=== PATIENT | female | born 1940 | race Caucasian/White ===

== ENCOUNTER 2017-06-08 07:43 | Day surgery (SDC) | payer MEDICARE ==
[2017-06-07 13:20] VITALS: BMI 29.1
[~2017-06-08 07:43] MED LIST: FLU VACC TS2017-18 (>65YR) 0.5 ML SYRINGE IM ONE
[2017-06-08 07:59] LABS: #Eosinphils 0.1 thou/uL (0.0-0.7); #Monocytes 0.4 thou/uL (0.11-0.59); #Neutrophils 4.1 thou/uL (1.40-6.50); %Basophils 0.7 % (0.0-1.0); %Eosinophils 1.9 % (0.0-10.0); %Lymphocytes 17.7 % (21.0-51.0); %Monocytes 7.7 % (0.0-10.0); Mean Platelet Volume 9.5 fL (7.4-10.4); Red Blood Cell (RBC) Count 4.69 mill/uL (4.20-5.40); White Blood Cell (WBC) Count 5.7 thou/uL (4.8-10.8)
[2017-06-08 08:08] LABS: PTT 38.5 SEC (22.9-36.1); Prothrombin Time 14.8 SEC (12.0-14.7)
[2017-06-08 08:31] LABS: ALT (SGPT) 13 U/L (8-55); AST (SGOT) 25 U/L (5-34); Alkaline Phosphatase 92 U/L (40-150); Anion Gap 12 mmol/L (10-20); BUN (Urea Nitrogen) 25 mg/dL (9.8-20.1); Bilirubin, Total 0.7 mg/dL (0.2-1.2); Calc. Creatinine Clearance 40 mL/min (70-130); Calcium 9.6 mg/dL (7.8-10.44); Carbon Dioxide 26 mmol/L (23-31); Chloride 100 mmol/L (98-107); Estimated GFR-MDRD 35; Globulin 3.9 g/dL (2.4-3.5); Protein, Total 6.9 g/dL (6.0-8.3)
[2017-06-08] MEDS ORDERED: Albumin 25% 100 ML ONE (10:37)
--- NOTE | 2017-06-08 10:41 | ULT ---
SONOGRAPHIC GUIDED PARACENTESIS: History: Cirrhosis. Recurrent ascites. FINDINGS: After explaining the procedure and answering all questions, the right lower quadrant was prepped and draped in the usual sterile fashion. Sterile technique, buffered local anesthesia, sonographic guid ance, and a 19 gauge Yueh needle were used to carefully access the free fluid. The new catheter was left to drain a total volume of 7.0 L clear yellow liquid. Catheter was removed. Post procedure imag ing shows a small amount of residual fluid. Patient tolerated the procedure well and was dismissed i n good condition. IMPRESSION: Technically successful sonographic guided paracentesis. POS: [facility]
[2017-06-08 12:58] VITALS: BP 110/65; TEMP 97.5
== END 2017-06-08 09:30 | disposition home or self-care (01) ==
LOC: ULT 07:43
PROVIDERS: ATTEND Internal Medicine Gastroenterology
PROC: 0W9G3ZZ Drainage of Peritoneal Cavity, Percutaneous Approach (ICD-10-PCS; principal; 2017-06-08)
PROC: BW40ZZZ Ultrasonography of Abdomen (ICD-10-PCS; 2017-06-08)
DX: K74.60 Unspecified cirrhosis of liver (principal); D50.0 Iron deficiency anemia secondary to blood loss (chronic); I10 Essential (primary) hypertension; E11.9 Type 2 diabetes mellitus without complications; E78.5 Hyperlipidemia, unspecified; M19.90 Unspecified osteoarthritis, unspecified site; Z79.84 Long term (current) use of oral hypoglycemic drugs; Z79.82 Long term (current) use of aspirin; Z90.710 Acquired absence of both cervix and uterus; Z90.49 Acquired absence of other specified parts of digestive tract; Z86.010 Personal history of colon polyps; Z88.6 Allergy status to analgesic agent; Z88.8 Allergy status to other drugs, medicaments and biological substances
CPT/HCPCS: 49083; 80053; 85025; 85610; 85730; P9047; 36415

== ENCOUNTER 2017-06-22 08:00 | Day surgery (SDC) | payer MEDICARE ==
[2017-06-21 09:18] VITALS: BMI 29.1
[2017-06-22 08:22] LABS: Hematocrit 43.3 % (36.0-47.0); Mean Platelet Volume 10.3 fL (7.4-10.4); Red Blood Cell (RBC) Count 4.89 mill/uL (4.20-5.40); White Blood Cell (WBC) Count 5.8 thou/uL (4.8-10.8)
[2017-06-22 08:42] LABS: Prothrombin Time 15.1 SEC (12.0-14.7)
[2017-06-22 08:51] LABS: ALT (SGPT) 14 U/L (8-55); AST (SGOT) 24 U/L (5-34); Alkaline Phosphatase 85 U/L (40-150); Anion Gap 12 mmol/L (10-20); BUN (Urea Nitrogen) 29 mg/dL (9.8-20.1); Bilirubin, Total 0.8 mg/dL (0.2-1.2); Calc. Creatinine Clearance 44 mL/min (70-130); Calcium 9.6 mg/dL (7.8-10.44); Carbon Dioxide 24 mmol/L (23-31); Chloride 103 mmol/L (98-107); Estimated GFR-MDRD 38; Protein, Total 7.2 g/dL (6.0-8.3)
[2017-06-22] MEDS ORDERED: Albumin 25% 100 ML ONE (10:23)
[2017-06-22 12:13] VITALS: BP 123/72; TEMP 97.5
--- NOTE | 2017-06-22 13:25 | ULT ---
ULTRASOUND GUIDED PARACENTESIS: 06/22/2017 HISTORY: Ascites and cirrhosis. TECHNIQUE: After informed consent was obtained, the patient was placed on the sonography table in the supine po sition. An appropriate access site was determined with ultrasound guidance. An area was marked and meticulously prepped and draped in the usual sterile fashion. The skin and subcutaneous tissues were infiltrated with buffered 1% Lidocaine for local anesthesia. A small skin incision was made. Utilizing concurrent real-time ultrasound guidance, a 19 gauge Yueh needle with a 5 Icelandic sheath was advanced into the abdomen. The needle was removed, and the sheat h was advanced. Approximately 7 L of clear, straw-colored fluid was aspirated. The patient was adm inistered albumin intravenously during the exam, as requested. After the sheath was removed, hemostasis was achieved with direct pressure. Post paracentesis sonog julia demonstrates a minimal amount of intraperitoneal free fluid present. IMPRESSION: Technically successful ultrasound-guided paracentesis with aspiration of 7 L of clear, straw colored fluid. POS: [facility]
== END 2017-06-22 11:45 | disposition home or self-care (01) ==
LOC: ULT 08:00
PROVIDERS: ATTEND Internal Medicine Gastroenterology
DX: R18.8 Other ascites (principal); K74.60 Unspecified cirrhosis of liver; Z88.1 Allergy status to other antibiotic agents; Z88.8 Allergy status to other drugs, medicaments and biological substances; Z79.899 Other long term (current) drug therapy
CPT/HCPCS: 49083; 80053; 85027; 85610; P9047; 36415

== ENCOUNTER 2017-07-06 07:48 | Day surgery (SDC) | payer MEDICARE ==
[2017-07-05 09:15] VITALS: BMI 28.2
[2017-07-06] MEDS ORDERED: Sodium Bicarbonate 2.4 MEQ/5 ML ONE (08:01)
[2017-07-06] MEDS ORDERED: Albumin 25% 100 ML ONE (08:01)
[2017-07-06 08:38] VITALS: BP 122/68; TEMP 97.8
[2017-07-06 09:48] LABS: #Eosinphils 0.1 thou/uL (0.0-0.7); #Lymphocytes 0.8 thou/uL (1.20-3.40); #Monocytes 0.5 thou/uL (0.11-0.59); #Neutrophils 3.3 thou/uL (1.40-6.50); %Basophils 0.4 % (0.0-1.0); %Eosinophils 1.3 % (0.0-10.0); %Lymphocytes 17.4 % (21.0-51.0); %Monocytes 9.9 % (0.0-10.0); Hematocrit 37.7 % (36.0-47.0); Mean Platelet Volume 11.6 fL (7.4-10.4); Prothrombin Time 14.8 SEC (12.0-14.7); Red Blood Cell (RBC) Count 4.21 mill/uL (4.20-5.40); White Blood Cell (WBC) Count 4.7 thou/uL (4.8-10.8)
[2017-07-06 09:55] LABS: ALT (SGPT) 15 U/L (8-55); AST (SGOT) 25 U/L (5-34); Alkaline Phosphatase 78 U/L (40-150); Anion Gap 13 mmol/L (10-20); BUN (Urea Nitrogen) 27 mg/dL (9.8-20.1); Bilirubin, Total 0.9 mg/dL (0.2-1.2); Calc. Creatinine Clearance 44 mL/min (70-130); Calcium 9.6 mg/dL (7.8-10.44); Carbon Dioxide 26 mmol/L (23-31); Chloride 102 mmol/L (98-107); Estimated GFR-MDRD 38; Globulin 3.2 g/dL (2.4-3.5); Protein, Total 6.7 g/dL (6.0-8.3)
--- NOTE | 2017-07-06 11:34 | ULT ---
ULTRASOUND PARACENTESIS WITH ULTRASOUND GUIDANCE: Date: 07/06/17 HISTORY: Ascites. COMPARISON: Paracentesis of 06/22/17. TECHNIQUE: Patient was brought to the ultrasound suite. All questions were answered. The patient's right lower quadrant was prepped and draped in the normal sterile fashion. Timeout was performed. Informed consent was already obtained. 3 mL of lidocaine was instilled into the soft tissues for local anesthesia. A small dermatotomy was made. Using a 5 Israeli Yueh needle, the peritoneal cavity was accessed. 6600 mL of straw-colored flu id was aspirated. The patient tolerated the procedure well. IMPRESSION: Technically successful right lower quadrant paracentesis. POS: [facility]
== END 2017-07-06 09:35 | disposition home or self-care (01) ==
LOC: ULT 07:48
PROVIDERS: ATTEND Internal Medicine Gastroenterology
PROC: 0W9G3ZX Drainage of Peritoneal Cavity, Percutaneous Approach, Diagnostic (ICD-10-PCS; principal; 2017-07-06)
DX: K74.60 Unspecified cirrhosis of liver (principal); R18.8 Other ascites; Z88.1 Allergy status to other antibiotic agents; Z88.8 Allergy status to other drugs, medicaments and biological substances
CPT/HCPCS: 49083; 80053; 85025; 85610; P9047; 36415

== ENCOUNTER → 2017-07-20 | Day surgery (SDC) | payer MEDICARE ==
[~2017-07-20] MED LIST changes: +Albumin 25% 100 ML ONE; -FLU VACC TS2017-18 (>65YR) 0.5 ML SYRINGE IM ONE
[2017-07-20 08:04] LABS: #Eosinphils 0.1 thou/uL (0.0-0.7); #Lymphocytes 0.9 thou/uL (1.20-3.40); #Monocytes 0.4 thou/uL (0.11-0.59); #Neutrophils 4.2 thou/uL (1.40-6.50); %Basophils 0.3 % (0.0-1.0); %Eosinophils 1.2 % (0.0-10.0); %Lymphocytes 15.5 % (21.0-51.0); %Monocytes 7.1 % (0.0-10.0); Hematocrit 39.3 % (36.0-47.0); Mean Platelet Volume 10.3 fL (7.4-10.4); Red Blood Cell (RBC) Count 4.33 mill/uL (4.20-5.40); White Blood Cell (WBC) Count 5.5 thou/uL (4.8-10.8)
[2017-07-20 08:27] LABS: ALT (SGPT) 15 U/L (8-55); AST (SGOT) 25 U/L (5-34); Alkaline Phosphatase 92 U/L (40-150); Anion Gap 14 mmol/L (10-20); BUN (Urea Nitrogen) 27 mg/dL (9.8-20.1); Bilirubin, Total 0.9 mg/dL (0.2-1.2); Calc. Creatinine Clearance 0 mL/min (70-130); Calcium 9.3 mg/dL (7.8-10.44); Carbon Dioxide 24 mmol/L (23-31); Chloride 102 mmol/L (98-107); Estimated GFR-MDRD 36; Globulin 3.9 g/dL (2.4-3.5)
[2017-07-20 10:54] VITALS: BP 111/64; TEMP 97.8
[2017-07-20 10:55] VITALS: BMI 27.3
--- NOTE | 2017-07-20 12:00 | ULT ---
ULTRASOUND GUIDED PARACENTESIS: HISTORY: Ascites. COMPARISON: 07/06/2017 FINDINGS: Technically successful ultrasound-guided paracentesis. A total of 7 L of yellow-colored ascites was aspirated. There were no immediate or post procedure complications. TECHNIQUE: Consent obtained for an ultrasound guided paracentesis. The right lower quadrant was deemed appropr iate. The skin was prepped and draped in a sterile fashion. Lidocaine 1%, buffered with sodium bic arbonate, was used for local anesthesia. Under ultrasound guidance, a 5 Bulgarian, 7 cm Techuloneh catheter was advanced into the peritoneal space. Via a tubing catheter and vacuum bottles, a total of 7 L of yellow-colored ascites was aspirated. The patient tolerated the procedure well. No immediate or p ost procedure complications. IMPRESSION: Technically successful ultrasound-guided paracentesis. POS: [facility]
== END ==
LOC: ULT 07:40
PROVIDERS: ATTEND Internal Medicine Gastroenterology
PROC: 0W9G3ZX Drainage of Peritoneal Cavity, Percutaneous Approach, Diagnostic (ICD-10-PCS; principal; 2017-07-20)
DX: K74.60 Unspecified cirrhosis of liver (principal); R18.8 Other ascites; E11.9 Type 2 diabetes mellitus without complications; M19.90 Unspecified osteoarthritis, unspecified site; I10 Essential (primary) hypertension; E78.00 Pure hypercholesterolemia, unspecified; Z88.1 Allergy status to other antibiotic agents; Z88.8 Allergy status to other drugs, medicaments and biological substances; Z79.84 Long term (current) use of oral hypoglycemic drugs; Z79.899 Other long term (current) drug therapy; Z90.49 Acquired absence of other specified parts of digestive tract; Z90.710 Acquired absence of both cervix and uterus; Z98.890 Other specified postprocedural states
CPT/HCPCS: 49083; 80053; 85025; 85610; P9047; 36415

== ENCOUNTER 2017-08-03 07:38 | Day surgery (SDC) | payer MEDICARE ==
[2017-08-03 08:04] LABS: PTT 35.5 SEC (22.9-36.1)
[2017-08-03 08:15] LABS: ALT (SGPT) 14 U/L (8-55); AST (SGOT) 29 U/L (5-34); Alkaline Phosphatase 93 U/L (40-150); Anion Gap 15 mmol/L (10-20); BUN (Urea Nitrogen) 30 mg/dL (9.8-20.1); Bilirubin, Total 0.9 mg/dL (0.2-1.2); Calc. Creatinine Clearance 0 mL/min (70-130); Calcium 8.9 mg/dL (7.8-10.44); Carbon Dioxide 17 mmol/L (23-31); Chloride 106 mmol/L (98-107); Estimated GFR-MDRD 40; Globulin 3.4 g/dL (2.4-3.5); Protein, Total 6.5 g/dL (6.0-8.3)
[2017-08-03 08:43] LABS: #Eosinphils 0.1 thou/uL (0.0-0.7); #Monocytes 0.4 thou/uL (0.11-0.59); #Neutrophils 4.3 thou/uL (1.40-6.50); %Basophils 0.7 % (0.0-1.0); %Eosinophils 1.2 % (0.0-10.0); %Lymphocytes 16.3 % (21.0-51.0); %Monocytes 7.6 % (0.0-10.0); Anisocytosis SLIGHT = 6-15 cells (100X) (0-5/hpf); Hematocrit 38.8 % (36.0-47.0); Mean Platelet Volume 11.2 fL (7.4-10.4); Ovalocytes SLIGHT = 2-5 cells (100X) (0-1/hpf); Polychromasia SLIGHT = 2-3 cells (100X) (0-2/hpf); Red Blood Cell (RBC) Count 4.24 mill/uL (4.20-5.40); White Blood Cell (WBC) Count 5.8 thou/uL (4.8-10.8)
[2017-08-03 10:17] VITALS: TEMP 98.2
--- NOTE | 2017-08-03 10:54 | ULT ---
ULTRASOUND GUIDED PARACENTESIS: Date: 08/03/17 HISTORY: Ascites. COMPARISON: 07/20/17. FINDINGS: Technically successful ultrasound guided paracentesis. A total of 8 liters of yellow-colored ascites was aspirated. No immediate postprocedure complication. TECHNIQUE: Consent obtained to perform an ultrasound guided paracentesis. Patient's abdomen was evaluated. Right lower quadrant was deemed appropriate. Skin was prepped and draped in the sterile fashion. 1% lidoca ine, buffered with sodium bicarbonate, was used for local anesthesia. Under ultrasound guidance, a 5 Bengali 7.0 cm Railswareeh catheter was advanced into the peritoneal space. Via vacuum bottles, a total of 8 liters of yellow-colored ascites was aspirated. The patient tolerated the procedure well. No immediat e or postprocedure complications. IMPRESSION: Technically successful ultrasound guided paracentesis. POS: [facility]
== END 2017-08-03 09:50 | disposition home or self-care (01) ==
LOC: ULT 07:38
PROVIDERS: ATTEND Internal Medicine Gastroenterology
PROC: 0W9G3ZX Drainage of Peritoneal Cavity, Percutaneous Approach, Diagnostic (ICD-10-PCS; principal; 2017-08-03)
DX: K74.60 Unspecified cirrhosis of liver (principal); R18.8 Other ascites; E11.9 Type 2 diabetes mellitus without complications; M19.90 Unspecified osteoarthritis, unspecified site; I10 Essential (primary) hypertension; E78.00 Pure hypercholesterolemia, unspecified; I95.9 Hypotension, unspecified; Z88.1 Allergy status to other antibiotic agents; Z88.8 Allergy status to other drugs, medicaments and biological substances; Z79.84 Long term (current) use of oral hypoglycemic drugs; Z79.899 Other long term (current) drug therapy; Z90.710 Acquired absence of both cervix and uterus; Z90.49 Acquired absence of other specified parts of digestive tract; Z98.890 Other specified postprocedural states; Z86.010 Personal history of colon polyps; Z80.0 Family history of malignant neoplasm of digestive organs
CPT/HCPCS: 36415; 49083; 80053; 85025; 85610; 85730

== ENCOUNTER 2017-08-17 07:44 | Day surgery (SDC) | payer MEDICARE ==
[2017-08-17 07:58] LABS: #Basophils 0.1 thou/uL (0.0-0.2); #Eosinphils 0.1 thou/uL (0.0-0.7); #Lymphocytes 1.1 thou/uL (1.20-3.40); #Monocytes 0.4 thou/uL (0.11-0.59); #Neutrophils 4.6 thou/uL (1.40-6.50); %Basophils 0.9 % (0.0-1.0); %Eosinophils 1.5 % (0.0-10.0); Hematocrit 41.1 % (36.0-47.0); Mean Platelet Volume 9.3 fL (7.4-10.4); Red Blood Cell (RBC) Count 4.44 mill/uL (4.20-5.40); White Blood Cell (WBC) Count 6.3 thou/uL (4.8-10.8)
[2017-08-17 08:04] LABS: Prothrombin Time 14.7 SEC (12.0-14.7)
[2017-08-17 08:28] LABS: ALT (SGPT) 18 U/L (8-55); AST (SGOT) 29 U/L (5-34); Alkaline Phosphatase 91 U/L (40-150); Anion Gap 13 mmol/L (10-20); BUN (Urea Nitrogen) 35 mg/dL (9.8-20.1); Bilirubin, Total 1.4 mg/dL (0.2-1.2); Calc. Creatinine Clearance 0 mL/min (70-130); Calcium 9.5 mg/dL (7.8-10.44); Carbon Dioxide 25 mmol/L (23-31); Chloride 102 mmol/L (98-107); Estimated GFR-MDRD 29; Globulin 3.8 g/dL (2.4-3.5); Protein, Total 7.2 g/dL (6.0-8.3)
[2017-08-17] MEDS ORDERED: Lidocaine 1% PF 5 ML VIAL ONE (08:39)
[2017-08-17] MEDS ORDERED: Sodium Bicarbonate 2.4 MEQ/5 ML ONE (08:39)
[2017-08-17] MEDS ORDERED: Albumin 25% 200 ML ONE (08:39)
[2017-08-17 10:22] VITALS: TEMP 98.5; BMI 27.9
--- NOTE | 2017-08-17 10:54 | ULT ---
ULTRASOUND GUIDED ABDOMINAL PARACENTESIS: Indications: Recurrent ascites. FINDINGS: 8 L of yellowish clear ascitic fluid removed from the right lower quadrant. PROCEDURE NOTE: Four quadrant ultrasound showed a large amount of ascites in all quadrants. Right lower quadrant was chosen for puncture. Overlying skin was prepped and draped in a sterile manner. Local anesthesia was administered with Lidocaine and Bicarb. Tiny skin incision made. 5 Haitian Yueh needle with catheter i ntroduced into the fluid in the right lower quadrant under ultrasound guidance. The catheter was adva nced and the needle was removed. The catheter was attached to suction drainage. 8 L of fluid removed. Post procedure ultrasound shows minimal residual ascites. Patient tolerated the procedure well and t here were no problems or complications. POS: [facility]
== END 2017-08-17 09:50 | disposition home or self-care (01) ==
LOC: ULT 07:44
PROVIDERS: ATTEND Internal Medicine Gastroenterology
PROC: 0W9G3ZZ Drainage of Peritoneal Cavity, Percutaneous Approach (ICD-10-PCS; principal; 2017-08-17)
PROC: BW40ZZZ Ultrasonography of Abdomen (ICD-10-PCS; 2017-08-17)
DX: K74.60 Unspecified cirrhosis of liver (principal); R18.8 Other ascites; E11.9 Type 2 diabetes mellitus without complications; E78.00 Pure hypercholesterolemia, unspecified; I10 Essential (primary) hypertension; M19.90 Unspecified osteoarthritis, unspecified site; K21.9 Gastro-esophageal reflux disease without esophagitis; Z86.010 Personal history of colon polyps; Z88.6 Allergy status to analgesic agent; Z88.8 Allergy status to other drugs, medicaments and biological substances; Z79.4 Long term (current) use of insulin; Z79.82 Long term (current) use of aspirin; Z79.899 Other long term (current) drug therapy; Z90.710 Acquired absence of both cervix and uterus; Z90.49 Acquired absence of other specified parts of digestive tract
CPT/HCPCS: 49083 ×2; 80053; 85025; 85610; P9047; 36415; J2001

== ENCOUNTER 2017-08-27 07:33 | Day surgery (SDC) | payer MEDICARE ==
[~2017-08-27 07:33] MED LIST changes: -Albumin 25% 100 ML ONE; +FLU VACC TS2017-18 (>65YR) 0.5 ML SYRINGE IM ONE
[2017-08-27 08:01] LABS: #Eosinphils 0.1 thou/uL (0.0-0.7); #Lymphocytes 1.1 thou/uL (1.20-3.40); #Monocytes 0.4 thou/uL (0.11-0.59); #Neutrophils 4.2 thou/uL (1.40-6.50); %Basophils 0.7 % (0.0-1.0); %Eosinophils 1.2 % (0.0-10.0); %Lymphocytes 19.3 % (21.0-51.0); Hematocrit 42.1 % (36.0-47.0); Mean Platelet Volume 9.6 fL (7.4-10.4); Red Blood Cell (RBC) Count 4.51 mill/uL (4.20-5.40); White Blood Cell (WBC) Count 5.9 thou/uL (4.8-10.8)
[2017-08-27 08:05] LABS: Prothrombin Time 14.2 SEC (12.0-14.7)
[2017-08-27 08:14] LABS: ALT (SGPT) 20 U/L (8-55); AST (SGOT) 32 U/L (5-34); Alkaline Phosphatase 84 U/L (40-150); Anion Gap 14 mmol/L (10-20); BUN (Urea Nitrogen) 51 mg/dL (9.8-20.1); Calc. Creatinine Clearance 28 mL/min (70-130); Calcium 10.4 mg/dL (7.8-10.44); Carbon Dioxide 26 mmol/L (23-31); Chloride 101 mmol/L (98-107); Estimated GFR-MDRD 23; Globulin 3.7 g/dL (2.4-3.5); Protein, Total 7.4 g/dL (6.0-8.3)
[2017-08-27] MEDS ORDERED: Sodium Bicarbonate 2.4 MEQ/5 ML ONE (08:37)
[2017-08-27] MEDS ORDERED: Lidocaine 1% PF 5 ML VIAL ONE (08:38)
[2017-08-27 10:06] VITALS: BP 110/65; TEMP 97.7; BMI 25.0
--- NOTE | 2017-08-27 10:45 | ULT ---
ULTRASOUND-GUIDED PARACENTESIS: HISTORY: Recurrent ascites. TECHNIQUE: After informed consent was obtained, the patient was prepped and draped in the normal sterile fashion . Local anesthesia was obtained with 1% Xylocaine mixed with sodium bicarbonate. A small skin incis ion was made with a #11 scalpel blade. A 6 Irish Yueh catheter was inserted into the largest fluid collection, which was in the right lower quadrant, and 3.2 L of typical straw-colored fluid was obtai alistair. The patient tolerated the procedure well with no immediate complications. IMPRESSION: Successful ultrasound-guided paracentesis of 3.2 L of fluid. POS: [facility]
== END 2017-08-27 09:45 | disposition home or self-care (01) ==
LOC: ULT 07:33
PROVIDERS: ATTEND Internal Medicine Gastroenterology
PROC: 0W9G30Z Drainage of Peritoneal Cavity with Drainage Device, Percutaneous Approach (ICD-10-PCS; principal; 2017-08-27)
DX: K74.60 Unspecified cirrhosis of liver (principal); R18.8 Other ascites; D50.0 Iron deficiency anemia secondary to blood loss (chronic); K31.819 Angiodysplasia of stomach and duodenum without bleeding; K21.9 Gastro-esophageal reflux disease without esophagitis; E11.9 Type 2 diabetes mellitus without complications; M19.90 Unspecified osteoarthritis, unspecified site; I10 Essential (primary) hypertension; Z79.2 Long term (current) use of antibiotics; Z79.84 Long term (current) use of oral hypoglycemic drugs; Z79.82 Long term (current) use of aspirin; Z79.899 Other long term (current) drug therapy; Z88.8 Allergy status to other drugs, medicaments and biological substances; Z98.1 Arthrodesis status; Z90.49 Acquired absence of other specified parts of digestive tract; Z90.710 Acquired absence of both cervix and uterus; Z98.890 Other specified postprocedural states; Z86.010 Personal history of colon polyps
CPT/HCPCS: 36415; 49083; 80053; 85025; 85610; J2001

== ENCOUNTER 2017-09-14 07:28 | Day surgery (SDC) | payer MEDICARE ==
[2017-09-14 07:55] LABS: #Eosinphils 0.1 thou/uL (0.0-0.7); #Lymphocytes 0.9 thou/uL (1.20-3.40); #Monocytes 0.4 thou/uL (0.11-0.59); #Neutrophils 4.1 thou/uL (1.40-6.50); %Basophils 0.7 % (0.0-1.0); %Eosinophils 1.6 % (0.0-10.0); %Lymphocytes 15.9 % (21.0-51.0); %Neutrophils 73.8 % (42.0-75.0); Hemoglobin 12.3 g/dL (12.0-16.0); Mean Corpuscular HGB CONC 31.6 g/dL (32.0-36.0); Mean Corpuscular Hemoglobin 30.2 pg (27.0-31.0); Mean Corpuscular Volume 95.6 fl (81.0-99.0); Mean Platelet Volume 8.8 fL (7.4-10.4); Platelet Count 187 thou/uL (130-400); RBC Distribution Width 14.2 % (11.5-14.5); Red Blood Cell (RBC) Count 4.07 mill/uL (4.20-5.40); White Blood Cell (WBC) Count 5.5 thou/uL (4.8-10.8)
[2017-09-14 07:59] LABS: INR-International Normal Ratio 1.1; PTT 37.7 SEC (22.9-36.1); Prothrombin Time 14.6 SEC (12.0-14.7)
[2017-09-14 08:09] LABS: ALT (SGPT) 25 U/L (8-55); AST (SGOT) 32 U/L (5-34); Albumin 3.2 g/dL (3.4-4.8); Alkaline Phosphatase 97 U/L (40-150); Anion Gap 15 mmol/L (10-20); BUN (Urea Nitrogen) 34 mg/dL (9.8-20.1); Bilirubin, Total 1.3 mg/dL (0.2-1.2); Calc. Creatinine Clearance 0 mL/min (70-130); Calcium 9.9 mg/dL (7.8-10.44); Carbon Dioxide 22 mmol/L (23-31); Chloride 103 mmol/L (98-107); Estimated GFR-MDRD 31; Globulin 3.4 g/dL (2.4-3.5); Glucose 172 mg/dL (83-110); Protein, Total 6.6 g/dL (6.0-8.3); Sodium 136 mmol/L (136-145)
[2017-09-14] MEDS ORDERED: Albumin 25% 200 ML ONE (09:31)
[2017-09-14 11:45] VITALS: BP 100/63; TEMP 97.7
--- NOTE | 2017-09-14 12:57 | ULT ---
ULTRASOUND GUIDED PARACENTESIS: HISTORY: Current ascites. TECHNIQUE: After informed consent was obtained, the patient was placed on the sonography table in the supine pos ition. limited sonographic evaluation of the abdomen was performed. An area in the mid axillary darren e, right upper quadrant, was marked and then meticulously prepped and draped in the usual sterile fas hion. The skin and subcutaneous tissues were infiltrated with buffered 1% Lidocaine for local anesth esia. A small skin incision was made. Utilizing concurrent real-time ultrasound guidance, a 19 gauge Zattikkaeh needle with a 5 Turkish sheath was advanced into the abdomen. After the return of fluid, the sheath w as advanced, and the needle was removed. Approximately 6 L of clear, straw-colored fluid was aspirat ed. The sheath was removed. Post procedure ultrasound demonstrated residual intraperitoneal free fl uid. A dry, sterile dressing was placed at the catheter entry site. The patient tolerated the procedure w ell and without immediate complication. IMPRESSION: Technically successful ultrasound-guided paracentesis. POS: [facility]
== END 2017-09-14 11:10 | disposition home or self-care (01) ==
LOC: ULT 07:28
PROVIDERS: ATTEND Internal Medicine Gastroenterology
PROC: 0W9G3ZX Drainage of Peritoneal Cavity, Percutaneous Approach, Diagnostic (ICD-10-PCS; principal; 2017-09-14)
DX: K74.60 Unspecified cirrhosis of liver (principal); R18.8 Other ascites; E11.9 Type 2 diabetes mellitus without complications; M19.90 Unspecified osteoarthritis, unspecified site; I10 Essential (primary) hypertension; E78.00 Pure hypercholesterolemia, unspecified; Z88.1 Allergy status to other antibiotic agents; Z88.8 Allergy status to other drugs, medicaments and biological substances; Z79.84 Long term (current) use of oral hypoglycemic drugs; Z79.899 Other long term (current) drug therapy; Z90.710 Acquired absence of both cervix and uterus; Z98.890 Other specified postprocedural states; Z80.0 Family history of malignant neoplasm of digestive organs
CPT/HCPCS: 49083; 80053; 85025; 85610; 85730; P9047; 36415

== ENCOUNTER 2017-09-30 07:38 | Day surgery (SDC) | payer MEDICARE ==
[2017-09-29 09:27] VITALS: BMI 28.4
[~2017-09-30 07:38] MED LIST changes: +Prevnar 13-Val Conj/PF 0.5 ML SYRINGE IM ONE
[2017-09-30 07:57] LABS: Hemoglobin 12.4 g/dL (12.0-16.0); Mean Corpuscular HGB CONC 32.1 g/dL (32.0-36.0); Mean Corpuscular Hemoglobin 30.9 pg (27.0-31.0); Mean Corpuscular Volume 96.3 fl (81.0-99.0); Mean Platelet Volume 8.6 fL (7.4-10.4); Platelet Count 205 thou/uL (130-400); RBC Distribution Width 13.5 % (11.5-14.5); Red Blood Cell (RBC) Count 4.01 mill/uL (4.20-5.40); White Blood Cell (WBC) Count 6.3 thou/uL (4.8-10.8)
[2017-09-30 08:07] LABS: INR-International Normal Ratio 1.2; PTT 38.5 SEC (22.9-36.1); Prothrombin Time 14.9 SEC (12.0-14.7)
[2017-09-30 08:15] LABS: ALT (SGPT) 24 U/L (8-55); AST (SGOT) 33 U/L (5-34); Albumin 3.3 g/dL (3.4-4.8); Alkaline Phosphatase 109 U/L (40-150); Anion Gap 14 mmol/L (10-20); BUN (Urea Nitrogen) 33 mg/dL (9.8-20.1); Bilirubin, Total 0.9 mg/dL (0.2-1.2); Calc. Creatinine Clearance 36 mL/min (70-130); Calcium 9.5 mg/dL (7.8-10.44); Carbon Dioxide 21 mmol/L (23-31); Chloride 102 mmol/L (98-107); Estimated GFR-MDRD 32; Globulin 3.3 g/dL (2.4-3.5); Glucose 132 mg/dL (83-110); Potassium 4.3 mmol/L (3.5-5.1); Protein, Total 6.6 g/dL (6.0-8.3); Sodium 133 mmol/L (136-145)
--- NOTE | 2017-09-30 10:38 | ULT ---
SONOGRAPHIC GUIDED PARACENTESIS: History: Cirrhosis. Recurrent ascites. FINDINGS: After explaining the procedure and answering all questions, sonographic survey shows a large amount o f free fluid. Sterile technique, buffered local anesthesia, sonographic guidance and an anterior righ t lower quadrant approach was used to carefully advance a 19 gauge Yueh needle and catheter into the free fluid. The catheter was left to drain a total volume of 9.0 L of clear yellow liquid. The cathet er was removed. Minimal fluid remains. Patient tolerated the procedure well and was dismissed in good condition. IMPRESSION: Technically successful sonographically guided paracentesis. POS: [facility]
[2017-09-30 13:11] VITALS: TEMP 97.6
[2017-09-30 13:12] VITALS: BP 114/64
== END 2017-09-30 09:25 | disposition home or self-care (01) ==
LOC: ULT 07:38
PROVIDERS: ATTEND Internal Medicine Gastroenterology
PROC: 0W9G3ZZ Drainage of Peritoneal Cavity, Percutaneous Approach (ICD-10-PCS; principal; 2017-09-30)
PROC: BW40ZZZ Ultrasonography of Abdomen (ICD-10-PCS; 2017-09-30)
DX: K74.60 Unspecified cirrhosis of liver (principal); R18.8 Other ascites; D50.0 Iron deficiency anemia secondary to blood loss (chronic); K31.819 Angiodysplasia of stomach and duodenum without bleeding; K55.20 Angiodysplasia of colon without hemorrhage; K21.9 Gastro-esophageal reflux disease without esophagitis; E11.9 Type 2 diabetes mellitus without complications; M19.90 Unspecified osteoarthritis, unspecified site; I10 Essential (primary) hypertension; E78.00 Pure hypercholesterolemia, unspecified; Z79.84 Long term (current) use of oral hypoglycemic drugs; Z79.82 Long term (current) use of aspirin; Z79.2 Long term (current) use of antibiotics; Z79.899 Other long term (current) drug therapy; Z88.8 Allergy status to other drugs, medicaments and biological substances; Z90.49 Acquired absence of other specified parts of digestive tract; Z90.710 Acquired absence of both cervix and uterus; Z98.890 Other specified postprocedural states; Z85.820 Personal history of malignant melanoma of skin; Z86.010 Personal history of colon polyps
CPT/HCPCS: 49083; 80053; 85027; 85610; 85730; P9047; 36415

== ENCOUNTER 2017-10-01 09:37 | Outpatient (CLI) | payer MEDICARE ==
--- NOTE | 2017-10-01 10:37 | RAD ---
KUB: Date: 10-01-17 Provided Clinical History: Renal calculus. FINDINGS: Comparison 09-30-16. The abdominal bowel gas pattern is nonspecific. Calculi overlying the right kidn ey appears similar to the prior study. Cholecystectomy clips are seen in the right upper quadrant. Fa int calcifications overlying the expected location of the inferior pole left kidney also appears ney lar to the prior study and presumably also reflect renal calculi. Multiple phleboliths overlie the pe lvis. IMPRESSION: Bilateral nephrolithiasis appears similar to the prior study. POS: [facility]
== END 2017-10-01 09:38 | disposition home or self-care (01) ==
LOC: SCSRAD 09:37
PROVIDERS: ATTEND Urology
DX: N20.0 Calculus of kidney (principal)
CPT/HCPCS: 74018

== ENCOUNTER 2017-10-12 07:40 | Day surgery (SDC) | payer MEDICARE ==
[2017-10-12 07:57] LABS: #Eosinphils 0.1 thou/uL (0.0-0.7); #Monocytes 0.6 thou/uL (0.11-0.59); #Neutrophils 5.7 thou/uL (1.40-6.50); %Basophils 0.6 % (0.0-1.0); %Eosinophils 1.7 % (0.0-10.0); %Lymphocytes 12.7 % (21.0-51.0); %Monocytes 8.5 % (0.0-10.0); %Neutrophils 76.5 % (42.0-75.0); Hemoglobin 12.9 g/dL (12.0-16.0); Mean Corpuscular HGB CONC 32.2 g/dL (32.0-36.0); Mean Corpuscular Hemoglobin 30.8 pg (27.0-31.0); Mean Corpuscular Volume 95.6 fl (81.0-99.0); Mean Platelet Volume 8.5 fL (7.4-10.4); Platelet Count 213 thou/uL (130-400); RBC Distribution Width 13.1 % (11.5-14.5); Red Blood Cell (RBC) Count 4.19 mill/uL (4.20-5.40); White Blood Cell (WBC) Count 7.4 thou/uL (4.8-10.8)
[2017-10-12 08:04] LABS: INR-International Normal Ratio 1.1; Prothrombin Time 14.5 SEC (12.0-14.7)
[2017-10-12 08:05] LABS: PTT 37.6 SEC (22.9-36.1)
[2017-10-12 08:11] LABS: ALT (SGPT) 26 U/L (8-55); AST (SGOT) 37 U/L (5-34); Albumin 3.4 g/dL (3.4-4.8); Alkaline Phosphatase 133 U/L (40-150); Anion Gap 13 mmol/L (10-20); BUN (Urea Nitrogen) 40 mg/dL (9.8-20.1); Calc. Creatinine Clearance 0 mL/min (70-130); Calcium 9.7 mg/dL (7.8-10.44); Carbon Dioxide 24 mmol/L (23-31); Chloride 101 mmol/L (98-107); Estimated GFR-MDRD 31; Globulin 3.3 g/dL (2.4-3.5); Glucose 129 mg/dL (83-110); Potassium 4.1 mmol/L (3.5-5.1); Protein, Total 6.7 g/dL (6.0-8.3); Sodium 134 mmol/L (136-145)
[2017-10-12] MEDS ORDERED: Lidocaine 1% PF 5 ML VIAL ONE (08:23)
[2017-10-12] MEDS ORDERED: Albumin 25% 200 ML ONE (08:23)
[2017-10-12] MEDS ORDERED: Sodium Bicarbonate 2.4 MEQ/5 ML ONE (08:23)
[2017-10-12 10:03] VITALS: BMI 24.6
[2017-10-12 10:05] VITALS: BP 106/35; TEMP 97.7
--- NOTE | 2017-10-12 12:23 | ULT ---
SONOGRAPHICALLY GUIDED PARACENTESIS: History: Recurrent ascites. FINDINGS: After explaining the procedure and answering all questions, sonographic survey of the abdomen shows a large amount of free fluid. Sterile technique, buffered local anesthesia, sonographic guidance and a right anterolateral approach were used to carefully advance the tip of a 19 gauge Yueh needle and ca theter into the free fluid. The catheter was left to drain a total volume of 9.0 L dark yellow liquid . Catheter was removed. Post procedure imaging showed small amount of residual fluid. Patient tolerat ed the procedure well and was dismissed in good condition. IMPRESSION: Technically successful sonographic guided paracentesis. POS: [facility]
== END 2017-10-12 10:00 | disposition home or self-care (01) ==
LOC: ULT 07:40
PROVIDERS: ATTEND Internal Medicine Gastroenterology
PROC: 0W9G3ZX Drainage of Peritoneal Cavity, Percutaneous Approach, Diagnostic (ICD-10-PCS; principal; 2017-10-12)
DX: K74.60 Unspecified cirrhosis of liver (principal); R18.8 Other ascites; K21.9 Gastro-esophageal reflux disease without esophagitis; E11.9 Type 2 diabetes mellitus without complications; M19.90 Unspecified osteoarthritis, unspecified site; I10 Essential (primary) hypertension; E78.00 Pure hypercholesterolemia, unspecified; Z88.1 Allergy status to other antibiotic agents; Z88.8 Allergy status to other drugs, medicaments and biological substances; Z79.84 Long term (current) use of oral hypoglycemic drugs; Z79.899 Other long term (current) drug therapy; Z98.890 Other specified postprocedural states; Z86.010 Personal history of colon polyps
CPT/HCPCS: 49083; 80053; 85025; 85610; 85730; P9047; 36415; J2001

== ENCOUNTER 2017-10-26 07:38 | Day surgery (SDC) | payer MEDICARE ==
[2017-10-25 09:11] VITALS: BMI 28.3
[2017-10-26 08:10] LABS: #Basophils 0.1 thou/uL (0.0-0.2); #Eosinphils 0.1 thou/uL (0.0-0.7); #Lymphocytes 0.8 thou/uL (1.20-3.40); #Monocytes 0.6 thou/uL (0.11-0.59); #Neutrophils 4.8 thou/uL (1.40-6.50); %Eosinophils 1.9 % (0.0-10.0); %Lymphocytes 13.1 % (21.0-51.0); %Monocytes 8.6 % (0.0-10.0); %Neutrophils 75.4 % (42.0-75.0); Hemoglobin 12.9 g/dL (12.0-16.0); Mean Corpuscular HGB CONC 32.9 g/dL (32.0-36.0); Mean Corpuscular Hemoglobin 31.2 pg (27.0-31.0); Mean Corpuscular Volume 94.8 fl (81.0-99.0); Mean Platelet Volume 8.8 fL (7.4-10.4); Platelet Count 222 thou/uL (130-400); RBC Distribution Width 12.6 % (11.5-14.5); Red Blood Cell (RBC) Count 4.13 mill/uL (4.20-5.40); White Blood Cell (WBC) Count 6.4 thou/uL (4.8-10.8)
[2017-10-26 08:21] LABS: INR-International Normal Ratio 1.1; PTT 38.1 SEC (22.9-36.1); Prothrombin Time 14.6 SEC (12.0-14.7)
[2017-10-26 08:34] LABS: ALT (SGPT) 25 U/L (8-55); AST (SGOT) 31 U/L (5-34); Albumin 3.3 g/dL (3.4-4.8); Alkaline Phosphatase 126 U/L (40-150); Anion Gap 10 mmol/L (10-20); BUN (Urea Nitrogen) 40 mg/dL (9.8-20.1); Calc. Creatinine Clearance 34 mL/min (70-130); Calcium 9.6 mg/dL (7.8-10.44); Carbon Dioxide 25 mmol/L (23-31); Chloride 102 mmol/L (98-107); Estimated GFR-MDRD 30; Globulin 3.4 g/dL (2.4-3.5); Glucose 185 mg/dL (83-110); Potassium 4.1 mmol/L (3.5-5.1); Protein, Total 6.7 g/dL (6.0-8.3); Sodium 133 mmol/L (136-145)
[2017-10-26] MEDS ORDERED: FLU VACC TS2017-18 (>65YR) 0.5 ML SYRINGE IM ONE (09:00)
[2017-10-26 11:27] VITALS: BP 108/68; TEMP 97.9
--- NOTE | 2017-10-26 12:26 | ULT ---
PROCEDURE ULTRASOUND GUIDED ABDOMINAL PARACENTESIS: Date: 10/26/17 INDICATIONS: Cirrhosis with recurrent ascites. FINDINGS: 9 liters of yellowish clear ascitic fluid removed from the right lower quadrant. PROCEDURE NOTE: Ultrasound screening of the abdomen shows large ascites in all quadrants. Right lower quadrant chosen for puncture. Overlying skin was prepped and draped in the sterile manner. Local anesthesia was admi nistered with lidocaine and bicarb. A 5 Azeri Yueh needle was introduced into the right lower quadra nt ascites under ultrasound guidance. The catheter was attached to suction drainage and ascitic fluid was recovered; however, the ascitic fluid stopped flowing and ultrasound confirmed that bowel loops were adhering to the tip of the Yueh needle due to the suction. Attempts were made to reposition the Yueh needle; however, there was persistent obstruction due to bowel loops and this catheter was remov ed. A second puncture was performed in the right lower quadrant under ultrasound guidance using an 8 Fren ch paracentesis catheter, which is a curved catheter with numerous side holes. This catheter was intr oduced under ultrasound guidance and was attached to suction drainage. There was free flow of ascitic fluid with no further problems. 9 liters of ascitic fluid was removed. The patient tolerated the procedure well and there were no other problems or complications. POS: [facility]
== END 2017-10-26 11:05 | disposition home or self-care (01) ==
LOC: ULT 07:38
PROVIDERS: ATTEND Internal Medicine Gastroenterology
PROC: 0W9G3ZZ Drainage of Peritoneal Cavity, Percutaneous Approach (ICD-10-PCS; principal; 2017-10-26)
PROC: BW40ZZZ Ultrasonography of Abdomen (ICD-10-PCS; 2017-10-26)
DX: K74.60 Unspecified cirrhosis of liver (principal); R18.8 Other ascites; K31.819 Angiodysplasia of stomach and duodenum without bleeding; D50.0 Iron deficiency anemia secondary to blood loss (chronic); K21.9 Gastro-esophageal reflux disease without esophagitis; E11.9 Type 2 diabetes mellitus without complications; M19.90 Unspecified osteoarthritis, unspecified site; I10 Essential (primary) hypertension; E78.00 Pure hypercholesterolemia, unspecified; Z79.84 Long term (current) use of oral hypoglycemic drugs; Z79.51 Long term (current) use of inhaled steroids; Z79.52 Long term (current) use of systemic steroids; Z79.01 Long term (current) use of anticoagulants; Z79.82 Long term (current) use of aspirin; Z79.2 Long term (current) use of antibiotics; Z79.899 Other long term (current) drug therapy; Z88.8 Allergy status to other drugs, medicaments and biological substances; Z88.6 Allergy status to analgesic agent; Z90.710 Acquired absence of both cervix and uterus; Z90.49 Acquired absence of other specified parts of digestive tract; Z98.890 Other specified postprocedural states; Z86.010 Personal history of colon polyps
CPT/HCPCS: 36415; 49083; 80053; 85025; 85610; 85730

== ENCOUNTER 2017-11-09 07:41 | Day surgery (SDC) | payer MEDICARE ==
[2017-11-09] MEDS ORDERED: Albumin 25% 200 ML ONE (08:07)
[2017-11-09] MEDS ORDERED: Sodium Bicarbonate 2.5 MEQ/5 ML VIAL ONE (08:07)
--- NOTE | 2017-11-09 11:04 | ULT ---
ULTRASOUND GUIDED PARACENTESIS: Date: 11/09/17 HISTORY: Ascites. COMPARISON: 10/26/17. FINDINGS: Technically successful ultrasound guided paracentesis. A total of 10 liters of yellow-colored ascites was aspirated. No immediate or postprocedure complications. TECHNIQUE: consent obtained to perform an ultrasound guided paracentesis. Right lower quadrant was deemed approp riate. Skin was prepped and draped in the sterile fashion. 1% lidocaine, buffered with sodium bicarbo francine, was used for local anesthesia. Under ultrasound guidance, a 5 Egyptian 7.0 cm Diassesseh catheter was a dvanced into the peritoneal space. Via vacuum bottles, a total of 10 liters of yellow-colored ascites was aspirated. The patient tolerated the procedure well. No immediate or postprocedure complication. IMPRESSION: Technically successful ultrasound guided paracentesis. POS: [facility]
[2017-11-09 11:35] VITALS: BP 94/61; TEMP 97.1
== END 2017-11-09 10:00 | disposition home or self-care (01) ==
LOC: ULT 07:41
PROVIDERS: ATTEND Internal Medicine Gastroenterology
PROC: 0W9G3ZZ Drainage of Peritoneal Cavity, Percutaneous Approach (ICD-10-PCS; principal; 2017-11-09)
DX: R18.8 Other ascites (principal); K74.60 Unspecified cirrhosis of liver; K31.819 Angiodysplasia of stomach and duodenum without bleeding; K21.9 Gastro-esophageal reflux disease without esophagitis; E11.9 Type 2 diabetes mellitus without complications; M19.90 Unspecified osteoarthritis, unspecified site; I10 Essential (primary) hypertension; E78.00 Pure hypercholesterolemia, unspecified; K59.00 Constipation, unspecified; D50.0 Iron deficiency anemia secondary to blood loss (chronic); Z88.6 Allergy status to analgesic agent; Z88.8 Allergy status to other drugs, medicaments and biological substances; Z79.899 Other long term (current) drug therapy; Z86.010 Personal history of colon polyps; Z79.84 Long term (current) use of oral hypoglycemic drugs; Z79.82 Long term (current) use of aspirin; Z90.49 Acquired absence of other specified parts of digestive tract; Z98.890 Other specified postprocedural states
CPT/HCPCS: 49083; P9047

== ENCOUNTER 2017-11-16 07:32 | Day surgery (SDC) | payer MEDICARE ==
[2017-11-16] MEDS ORDERED: Albumin 25% 200 ML ONE (07:44)
[2017-11-16] MEDS ORDERED: Sodium Bicarbonate 2.5 MEQ/5 ML VIAL ONE (07:44)
[2017-11-16 11:58] VITALS: BP 106/59; TEMP 97.6; BMI 28.3
--- NOTE | 2017-11-16 13:13 | ULT ---
ULTRASOUND GUIDED PARACENTESIS WITH IMAGING: History Ascites. COMPARISON: Multiple prior exams. TECHNIQUE/FINDINGS: The patient was brought to the ultrasound suite. All questions were answered. The patient's right lower quadrant was prepped and draped in normal sterile fashion. Approximately 4 mL of buffered Lidocaine was instilled into the superficial and deep soft tissues. After adequate a nesthesia, a small dermatotomy was made. Using a 5 Indonesian Yueh needle, the peritoneal space was acce ssed. Six liters of straw-colored fluid was removed. The patient tolerated the procedure well without comp lication. IMPRESSION: Technically successful ultrasound-guided paracentesis. POS: [facility]
== END 2017-11-16 11:15 | disposition home or self-care (01) ==
LOC: ULT 07:32
PROVIDERS: ATTEND Internal Medicine Gastroenterology
PROC: 0W9G3ZX Drainage of Peritoneal Cavity, Percutaneous Approach, Diagnostic (ICD-10-PCS; principal; 2017-11-16)
PROC: BW40ZZZ Ultrasonography of Abdomen (ICD-10-PCS; 2017-11-16)
DX: K74.60 Unspecified cirrhosis of liver (principal); R18.8 Other ascites; D50.0 Iron deficiency anemia secondary to blood loss (chronic); K21.9 Gastro-esophageal reflux disease without esophagitis; E11.9 Type 2 diabetes mellitus without complications; I10 Essential (primary) hypertension; M19.90 Unspecified osteoarthritis, unspecified site; E78.00 Pure hypercholesterolemia, unspecified; Z88.1 Allergy status to other antibiotic agents; Z88.8 Allergy status to other drugs, medicaments and biological substances; Z79.82 Long term (current) use of aspirin; Z79.84 Long term (current) use of oral hypoglycemic drugs; Z79.899 Other long term (current) drug therapy; Z98.890 Other specified postprocedural states; Z86.010 Personal history of colon polyps; Z85.820 Personal history of malignant melanoma of skin; Z80.0 Family history of malignant neoplasm of digestive organs
CPT/HCPCS: 49083; P9047

== ENCOUNTER → 2017-11-22 | Day surgery (SDC) | payer MEDICARE ==
[2017-11-19 08:00] VITALS: BMI 25.0
[~2017-11-22] MED LIST changes: +Sodium Bicarbonate 2.5 MEQ/5 ML VIAL ONE
[2017-11-22 09:13] VITALS: TEMP 97.5
--- NOTE | 2017-11-22 10:21 | ULT ---
ULTRASOUND GUIDED PARACENTESIS: Date: 11/22/17 HISTORY: Cirrhosis and refractory ascites. TECHNIQUE: After informed consent was obtained, the patient was placed on the sonography table in the supine pos ition. Limited sonographic evaluation of the abdomen was performed. An area in the right upper quadra nt mid axillary line was marked and then meticulously prepped and draped in the usual sterile fashion . Skin and subcutaneous tissues were infiltrated with buffered 1% lidocaine for local anesthesia at t he intended puncture site. Small skin incision was made. Utilizing concurrent real-time ultrasound gu idance, a 19 gauge Mogieh needle with 5 Kazakh sheath was advanced into the abdomen. Approximately 6 li ters of clear, straw-colored fluid was aspirated. The patient was administered Albumin intravenously during the examination as requested. Introducer sheath was remoted, and hemostasis was achieved with direct pressure. Follow-up sonographi c imaging does demonstrate residual intraperitoneal free fluid. A dry, sterile dressing was placed at puncture site. The patient tolerated the procedure well and without immediate complication. The patient was further monitored in the radiology nurse's holding area prior to discharge. IMPRESSION: Technically successful ultrasound guided paracentesis. A small amount of intraperitoneal free fluid d oes persist after paracentesis. POS: [facility]
== END ==
LOC: ULT 07:30
PROVIDERS: ATTEND Internal Medicine Gastroenterology
PROC: 0W9G3ZZ Drainage of Peritoneal Cavity, Percutaneous Approach (ICD-10-PCS; principal; 2017-11-22)
PROC: BW40ZZZ Ultrasonography of Abdomen (ICD-10-PCS; 2017-11-22)
DX: K74.60 Unspecified cirrhosis of liver (principal); R18.8 Other ascites; D50.0 Iron deficiency anemia secondary to blood loss (chronic); K21.9 Gastro-esophageal reflux disease without esophagitis; E11.9 Type 2 diabetes mellitus without complications; I10 Essential (primary) hypertension; M19.90 Unspecified osteoarthritis, unspecified site; E78.00 Pure hypercholesterolemia, unspecified; Z88.1 Allergy status to other antibiotic agents; Z88.8 Allergy status to other drugs, medicaments and biological substances; Z79.82 Long term (current) use of aspirin; Z79.84 Long term (current) use of oral hypoglycemic drugs; Z79.52 Long term (current) use of systemic steroids; Z79.2 Long term (current) use of antibiotics; Z79.51 Long term (current) use of inhaled steroids; Z79.899 Other long term (current) drug therapy; Z98.890 Other specified postprocedural states; Z86.010 Personal history of colon polyps; Z85.820 Personal history of malignant melanoma of skin; Z80.0 Family history of malignant neoplasm of digestive organs
CPT/HCPCS: 49083

== ENCOUNTER 2017-11-30 07:44 | Day surgery (SDC) | payer MEDICARE ==
[2017-11-29 08:21] VITALS: BMI 26.3
[~2017-11-30 07:44] MED LIST changes: -Prevnar 13-Val Conj/PF 0.5 ML SYRINGE IM ONE; -Sodium Bicarbonate 2.5 MEQ/5 ML VIAL ONE
[2017-11-30 08:04] LABS: #Basophils 0.1 thou/uL (0.0-0.2); #Eosinphils 0.1 thou/uL (0.0-0.7); #Lymphocytes 0.8 thou/uL (1.20-3.40); #Monocytes 0.6 thou/uL (0.11-0.59); #Neutrophils 5.2 thou/uL (1.40-6.50); %Basophils 0.8 % (0.0-1.0); %Eosinophils 1.3 % (0.0-10.0); %Lymphocytes 11.8 % (21.0-51.0); %Monocytes 8.3 % (0.0-10.0); %Neutrophils 77.8 % (42.0-75.0); Hemoglobin 12.4 g/dL (12.0-16.0); Mean Corpuscular HGB CONC 33.6 g/dL (32.0-36.0); Mean Corpuscular Hemoglobin 30.7 pg (27.0-31.0); Mean Corpuscular Volume 91.5 fl (81.0-99.0); Platelet Count 188 thou/uL (130-400); RBC Distribution Width 12.4 % (11.5-14.5); Red Blood Cell (RBC) Count 4.03 mill/uL (4.20-5.40); White Blood Cell (WBC) Count 6.6 thou/uL (4.8-10.8)
[2017-11-30 08:10] LABS: INR-International Normal Ratio 1.1; Prothrombin Time 14.7 SEC (12.0-14.7)
[2017-11-30 08:11] LABS: PTT 34.9 SEC (22.9-36.1)
[2017-11-30] MEDS ORDERED: Sodium Bicarbonate 2.5 MEQ/5 ML VIAL ONE (08:17)
[2017-11-30] MEDS ORDERED: Albumin 25% 200 ML ONE (08:17)
[2017-11-30 08:22] LABS: Anion Gap 13 mmol/L (10-20); BUN (Urea Nitrogen) 42 mg/dL (9.8-20.1); Calc. Creatinine Clearance 31 mL/min (70-130); Calcium 9.5 mg/dL (7.8-10.44); Carbon Dioxide 22 mmol/L (23-31); Chloride 105 mmol/L (98-107); Estimated GFR-MDRD 29; Glucose 165 mg/dL (83-110); Potassium 4.8 mmol/L (3.5-5.1); Sodium 135 mmol/L (136-145)
[2017-11-30 10:38] VITALS: BP 109/68; TEMP 98.1
--- NOTE | 2017-11-30 12:19 | ULT ---
ULTRASOUND GUIDED PARACENTESIS THERAPEUTIC: DATE: 11/30/17. 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 TECHNIQUE: Ultrasound survey of bilateral upper and lower quadrants. Right lower quadrant selected. The overly ing skin was prepped and draped in the usual sterile fashion. A 25-gauge needle was used to apply bu ffered Lidocaine. A 5 Irish Yueh catheter with stylette was advanced in tandem with the 25-gauge ne edle. Stylette removed. The 25-gauge needle removed. Yueh catheter connected to series of evacuate d 1 liter bottles via plastic tubing. Ascites drained. The Yueh catheter was removed. The patient tolerated the procedure well. No complications. FINDINGS: Images prior to the procedure demonstrate large volume of free intraperitoneal fluid. Post procedure image demonstrates a moderate amount of residual fluid. A total of 6000 mL of non-hemorrhagic, stra w-colored fluid was drained. IMPRESSION: Successful therapeutic paracentesis, with drainage of 6 liters of ascites fluid. POS: [facility]
== END 2017-11-30 09:30 | disposition home or self-care (01) ==
LOC: ULT 07:44
PROVIDERS: ATTEND Internal Medicine Gastroenterology
PROC: 0W9G3ZZ Drainage of Peritoneal Cavity, Percutaneous Approach (ICD-10-PCS; principal; 2017-11-30)
DX: R18.8 Other ascites (principal); K74.60 Unspecified cirrhosis of liver; K59.00 Constipation, unspecified; K21.9 Gastro-esophageal reflux disease without esophagitis; K31.819 Angiodysplasia of stomach and duodenum without bleeding; D50.0 Iron deficiency anemia secondary to blood loss (chronic); E11.9 Type 2 diabetes mellitus without complications; M19.90 Unspecified osteoarthritis, unspecified site; I10 Essential (primary) hypertension; E78.00 Pure hypercholesterolemia, unspecified; Z79.82 Long term (current) use of aspirin; Z79.84 Long term (current) use of oral hypoglycemic drugs; Z79.899 Other long term (current) drug therapy; Z88.6 Allergy status to analgesic agent; Z88.8 Allergy status to other drugs, medicaments and biological substances; Z98.890 Other specified postprocedural states
CPT/HCPCS: 49083; 80048; 85025; 85610; 85730; P9047; 36415

== ENCOUNTER 2017-12-07 07:31 | Day surgery (SDC) | payer MEDICARE ==
[2017-12-06 09:08] VITALS: BMI 24.2
[2017-12-07] MEDS ORDERED: Albumin 25% 200 ML ONE (07:38)
[2017-12-07] MEDS ORDERED: Sodium Bicarbonate 2.5 MEQ/5 ML VIAL ONE (07:39)
[2017-12-07 09:54] VITALS: BP 114/62; TEMP 97.6
--- NOTE | 2017-12-07 10:37 | ULT ---
ULTRASOUND GUIDED PARACENTESIS: Date: 12/07/17 HISTORY: Ascites. COMPARISON: 11/30/17. FINDINGS: Technically successful ultrasound guided paracentesis. 6 liters of yellow-colored ascites was aspirat ed. Postprocedure image does still demonstrate ascites to be present. TECHNIQUE: Consent obtained to perform an ultrasound guided paracentesis. Patient's abdomen was evaluated. Right lower quadrant was deemed appropriate. Skin was prepped and draped in the sterile fashion. 1% lidoca ine, buffered with sodium bicarbonate, was used for local anesthesia. Under ultrasound guidance, a 5 Armenian 7 cm TVSmileseh catheter was advanced into the peritoneal space. Via vacuum bottles, a total of 6 li ters of yellow-colored ascites was aspirated. The patient tolerated the procedure well. No immediate or postprocedure complication. IMPRESSION: Technically successful ultrasound guided paracentesis. POS: [facility]
== END 2017-12-07 09:30 | disposition home or self-care (01) ==
LOC: ULT 07:31
PROVIDERS: ATTEND Internal Medicine Gastroenterology
PROC: 0W9G3ZZ Drainage of Peritoneal Cavity, Percutaneous Approach (ICD-10-PCS; principal; 2017-12-07)
DX: R18.8 Other ascites (principal); K21.9 Gastro-esophageal reflux disease without esophagitis; K55.20 Angiodysplasia of colon without hemorrhage; K31.819 Angiodysplasia of stomach and duodenum without bleeding; M06.9 Rheumatoid arthritis, unspecified; K74.60 Unspecified cirrhosis of liver; M19.90 Unspecified osteoarthritis, unspecified site; I10 Essential (primary) hypertension; E78.00 Pure hypercholesterolemia, unspecified; D50.0 Iron deficiency anemia secondary to blood loss (chronic); Z79.82 Long term (current) use of aspirin; Z79.84 Long term (current) use of oral hypoglycemic drugs; Z79.899 Other long term (current) drug therapy; Z88.6 Allergy status to analgesic agent; Z88.8 Allergy status to other drugs, medicaments and biological substances
CPT/HCPCS: 49083; P9047

== ENCOUNTER 2017-12-14 07:52 | Day surgery (SDC) | payer MEDICARE ==
[2017-12-14] MEDS ORDERED: Albumin 25% 200 ML ONE (08:05)
[2017-12-14] MEDS ORDERED: Sodium Bicarbonate 2.5 MEQ/5 ML VIAL ONE (08:05)
[2017-12-14 10:01] VITALS: BP 98/46; TEMP 97.9
--- NOTE | 2017-12-14 10:28 | ULT ---
PREPROCEDURE DIAGNOSIS: Ascites. POSTPROCEDURE DIAGNOSIS: Ascites. PROCEDURE: Ultrasound-guided paracentesis. SURGEON: Laurent Shah M.D. COMPLICATIONS: None. ANESTHESIA: Buffered 1% Lidocaine 6 mL. SPECIMENS: Straw-colored fluid, 6 L. TECHNIQUE: Prior to the procedure, the risks and benefits of an ultrasound-guided paracentesis were explained to the patient, and she consented fully to the procedure. An ultrasound was performed, showing the lar gest collection of fluid in the right lower quadrant of the abdomen. The right lower quadrant of the abdomen was prepped and draped in the usual sterile fashion, and Lido chary was used to anesthetize the skin and track down toward the peritoneal cavity. A small skin inc ision was made, allowing for passage of the Yueh needle and catheter, using ultrasound guidance, into the peritoneal cavity. The catheter was left in place and connected to multiple vacutainer bottles. A total of 6 L was removed. At the completion of the procedure, no significant residual fluid was seen. IMPRESSION: Status post successful ultrasound guided paracentesis. POS: [facility]
== END 2017-12-14 09:35 | disposition home or self-care (01) ==
LOC: ULT 07:52
PROVIDERS: ATTEND Internal Medicine Gastroenterology
PROC: 0W9G3ZZ Drainage of Peritoneal Cavity, Percutaneous Approach (ICD-10-PCS; principal; 2017-12-14)
DX: R18.8 Other ascites (principal); K74.60 Unspecified cirrhosis of liver; K31.819 Angiodysplasia of stomach and duodenum without bleeding; K21.9 Gastro-esophageal reflux disease without esophagitis; I10 Essential (primary) hypertension; M19.90 Unspecified osteoarthritis, unspecified site; E78.00 Pure hypercholesterolemia, unspecified; D64.9 Anemia, unspecified; Z79.84 Long term (current) use of oral hypoglycemic drugs; Z79.82 Long term (current) use of aspirin; Z79.899 Other long term (current) drug therapy; Z88.6 Allergy status to analgesic agent; Z88.8 Allergy status to other drugs, medicaments and biological substances; Z98.890 Other specified postprocedural states
CPT/HCPCS: 49083; P9047

== ENCOUNTER 2017-12-17 13:07 | Emergency (ER) | payer MEDICARE ==
[2017-12-17] MEDS ORDERED: Adacel (T-DAP) 0.5 ML VIAL ONE (13:40)
--- NOTE | 2017-12-17 13:46 | RAD ---
LEFT HAND 3 VIEWS: History Fall on left hand. COMPARISON: None. FINDINGS: Hairline nondisplaced spiral-type fracture 4th metacarpal metadiaphysis. Moderate degenerative disea se of the thumb carpometacarpal joint. Mild interphalangeal joint space narrowing. There is a media l erosion of the 5th metacarpal head. IMPRESSION: Nondisplaced spiral-type fracture of the 4th metacarpal diaphysis extending to the proximal and dista l metaphyses. POS: [facility]
== END 2017-12-17 14:47 | disposition home or self-care (01) ==
LOC: SCSER 13:07
DX: S62.345A Nondisplaced fracture of base of fourth metacarpal bone, left hand, initial encounter for closed fracture (principal); E11.9 Type 2 diabetes mellitus without complications; W19.XXXA Unspecified fall, initial encounter
CPT/HCPCS: 90471; 90715

== ENCOUNTER 2017-12-21 07:25 | Day surgery (SDC) | payer MEDICARE ==
[2017-12-20 09:49] VITALS: BMI 25.0
[2017-12-21] MEDS ORDERED: Albumin 25% 200 ML ONE (07:57)
[2017-12-21] MEDS ORDERED: Sodium Bicarbonate 2.5 MEQ/5 ML VIAL ONE (07:57)
[2017-12-21 09:58] VITALS: TEMP 97.7
[2017-12-21 09:59] VITALS: BP 108/57
--- NOTE | 2017-12-21 11:04 | ULT ---
ULTRASOUND GUIDED PARACENTESIS: History: Cirrhosis. Recurrent ascites. FINDINGS: After informed consent was obtained, the patient was prepped and draped in normal sterile fashion. Lo ivy anesthesia was obtained with 1% Xylocaine mixed with sodium bicarb. Small skin incision was made with a #11 scalpel blade, incision was made in the right lower quadrant. A 6 Tuvaluan Yueh catheter was introduced and 6 L of typical straw colored ascites was obtained. The patient tolerated the procedur e well. There were no immediate complications. IMPRESSION: Ultrasound directed paracentesis of 6 L of fluid. POS: [facility]
== END 2017-12-21 09:15 | disposition home or self-care (01) ==
LOC: ULT 07:25
PROVIDERS: ATTEND Internal Medicine Gastroenterology
PROC: 0W9G3ZX Drainage of Peritoneal Cavity, Percutaneous Approach, Diagnostic (ICD-10-PCS; principal; 2017-12-21)
PROC: BW40ZZZ Ultrasonography of Abdomen (ICD-10-PCS; 2017-12-21)
DX: K74.60 Unspecified cirrhosis of liver (principal); R18.8 Other ascites; D64.9 Anemia, unspecified; M19.90 Unspecified osteoarthritis, unspecified site; E11.9 Type 2 diabetes mellitus without complications; E78.00 Pure hypercholesterolemia, unspecified; K21.9 Gastro-esophageal reflux disease without esophagitis; I10 Essential (primary) hypertension; Z88.1 Allergy status to other antibiotic agents; Z88.8 Allergy status to other drugs, medicaments and biological substances; Z79.82 Long term (current) use of aspirin; Z79.84 Long term (current) use of oral hypoglycemic drugs; Z79.899 Other long term (current) drug therapy; Z98.890 Other specified postprocedural states; Z86.010 Personal history of colon polyps
CPT/HCPCS: 49083; P9047

== ENCOUNTER → 2017-12-28 | Day surgery (SDC) | payer MEDICARE ==
[~2017-12-28] MED LIST changes: +Albumin 25% 200 ML ONE; -FLU VACC TS2017-18 (>65YR) 0.5 ML SYRINGE IM ONE; +Lidocaine 1% PF 5 ML VIAL ONE; +Sodium Bicarbonate 2.5 MEQ/5 ML VIAL ONE; +Sodium Chloride 0.9% 20 ML ONE
--- NOTE | 2017-12-28 09:56 | ULT ---
ULTRASOUND GUIDED PARACENTESIS: History: Ascites. Comparison: 12-21-17 FINDINGS: The patient was brought to the ultrasound suite where all questions were answered. Informed consent w as already obtained. The right lower quadrant was prepped and draped in normal sterile fashion. 5 ml of Lidocaine was inst illed into the superficial and deep soft tissues for anesthesia. Small dermatotomy was made. Using a 5 Italian Yueh needle, the peroneal space was accessed. 6L of stra w colored fluid was aspirated. IMPRESSION: Technically successful ultrasound guided paracentesis. POS: [facility]
== END ==
LOC: ULT 07:42
PROVIDERS: ATTEND Internal Medicine Gastroenterology
PROC: 0W9G3ZZ Drainage of Peritoneal Cavity, Percutaneous Approach (ICD-10-PCS; principal; 2017-12-28)
DX: R18.8 Other ascites (principal); K74.60 Unspecified cirrhosis of liver; E11.9 Type 2 diabetes mellitus without complications; E78.00 Pure hypercholesterolemia, unspecified; I10 Essential (primary) hypertension; K21.9 Gastro-esophageal reflux disease without esophagitis; M19.90 Unspecified osteoarthritis, unspecified site; K31.819 Angiodysplasia of stomach and duodenum without bleeding; D64.9 Anemia, unspecified; Z86.010 Personal history of colon polyps; Z79.82 Long term (current) use of aspirin; Z79.84 Long term (current) use of oral hypoglycemic drugs; Z79.899 Other long term (current) drug therapy; Z88.1 Allergy status to other antibiotic agents; Z88.8 Allergy status to other drugs, medicaments and biological substances; Z98.890 Other specified postprocedural states
CPT/HCPCS: 49083; P9047; A4216; J2001

== ENCOUNTER 2018-01-04 07:30 | Day surgery (SDC) | payer MEDICARE ==
[2018-01-04 07:55] LABS: #Basophils 0.1 thou/uL (0.0-0.2); #Eosinphils 0.2 thou/uL (0.0-0.7); #Lymphocytes 0.9 thou/uL (1.20-3.40); #Monocytes 0.6 thou/uL (0.11-0.59); #Neutrophils 5.2 thou/uL (1.40-6.50); %Basophils 0.8 % (0.0-1.0); %Eosinophils 3.3 % (0.0-10.0); %Lymphocytes 13.4 % (21.0-51.0); %Monocytes 8.3 % (0.0-10.0); %Neutrophils 74.2 % (42.0-75.0); Hemoglobin 12.4 g/dL (12.0-16.0); Mean Corpuscular HGB CONC 33.2 g/dL (32.0-36.0); Mean Corpuscular Hemoglobin 30.5 pg (27.0-31.0); Mean Corpuscular Volume 91.8 fl (81.0-99.0); Mean Platelet Volume 8.5 fL (7.4-10.4); Platelet Count 215 thou/uL (130-400); RBC Distribution Width 13.4 % (11.5-14.5); Red Blood Cell (RBC) Count 4.07 mill/uL (4.20-5.40)
[2018-01-04] MEDS ORDERED: Sodium Chloride 0.9% 10 ML ONE (08:03)
[2018-01-04] MEDS ORDERED: Albumin 25% 200 ML ONE (08:03)
[2018-01-04] MEDS ORDERED: Sodium Bicarbonate 2.5 MEQ/5 ML VIAL ONE (08:03)
[2018-01-04 08:27] LABS: INR-International Normal Ratio 1.2; PTT 34.6 SEC (22.9-36.1)
--- NOTE | 2018-01-04 12:01 | ULT ---
ULTRASOUND GUIDED PARACENTESIS: INDICATIONS: Ascites. TECHNIQUE: Informed consent was obtained. FINDINGS: Pre-procedure ultrasound demonstrated a moderate to prominent amount of ascites. The site overlying the right lower quadrant was marked. The site was prepped and draped in the usual sterile fashion. Buffered 1% Lidocaine was administered to the overlying subcutaneous tissues. Under ultrasound valencia nce, a 5-Italian Yueh catheter was guided down into the large collection in the right lower quadrant, and 6 L of normal appearing peritoneal fluid was removed. The patient tolerated the procedure withou t difficulty. IMPRESSION: Successful ultrasound guided paracentesis with removal of 6 L of normal appearing fluid. POS: [facility]
[2018-01-04 14:07] VITALS: BP 105/63; TEMP 98.6
== END 2018-01-04 09:45 | disposition home or self-care (01) ==
LOC: ULT 07:30
PROVIDERS: ATTEND Internal Medicine Gastroenterology
PROC: 0W9G3ZZ Drainage of Peritoneal Cavity, Percutaneous Approach (ICD-10-PCS; principal; 2018-01-04)
DX: R18.8 Other ascites (principal); K74.60 Unspecified cirrhosis of liver; K21.9 Gastro-esophageal reflux disease without esophagitis; D50.9 Iron deficiency anemia, unspecified; E11.9 Type 2 diabetes mellitus without complications; M19.90 Unspecified osteoarthritis, unspecified site; I10 Essential (primary) hypertension; E78.00 Pure hypercholesterolemia, unspecified; Z79.82 Long term (current) use of aspirin; Z79.01 Long term (current) use of anticoagulants; Z79.84 Long term (current) use of oral hypoglycemic drugs; Z79.2 Long term (current) use of antibiotics; Z79.51 Long term (current) use of inhaled steroids; Z79.899 Other long term (current) drug therapy; Z88.6 Allergy status to analgesic agent; Z88.8 Allergy status to other drugs, medicaments and biological substances
CPT/HCPCS: 49083; 85025; 85610; 85730; P9047; 36415; A4216

== ENCOUNTER 2018-01-11 07:30 | Day surgery (SDC) | payer MEDICARE ==
[2018-01-11] MEDS ORDERED: Albumin 25% 200 ML ONE (07:53)
[2018-01-11] MEDS ORDERED: Lidocaine 1% PF 5 ML VIAL ONE (07:53)
[2018-01-11] MEDS ORDERED: Sodium Bicarbonate 2.5 MEQ/5 ML VIAL ONE (07:53)
[2018-01-11 08:14] LABS: ALT (SGPT) 28 U/L (8-55); AST (SGOT) 38 U/L (5-34); Albumin 3.3 g/dL (3.4-4.8); Alkaline Phosphatase 114 U/L (40-150); Anion Gap 14 mmol/L (10-20); BUN (Urea Nitrogen) 42 mg/dL (9.8-20.1); Bilirubin, Total 1.1 mg/dL (0.2-1.2); Calc. Creatinine Clearance 0 mL/min (70-130); Calcium 9.1 mg/dL (7.8-10.44); Carbon Dioxide 21 mmol/L (23-31); Chloride 105 mmol/L (98-107); Estimated GFR-MDRD 27; Globulin 2.6 g/dL (2.4-3.5); Glucose 149 mg/dL (83-110); Potassium 4.2 mmol/L (3.5-5.1); Protein, Total 5.9 g/dL (6.0-8.3); Sodium 136 mmol/L (136-145)
--- NOTE | 2018-01-11 10:20 | ULT ---
ULTRASOUND GUIDED PARACENTESIS: DATE: 01/11/18. HISTORY: Cirrhosis and refractory ascites. TECHNIQUE: After informed consent was obtained, the patient was placed on the sonography table in supine positio n. Limited sonographic evaluation of the abdomen was performed. An area was marked overlying the mi d axillary line right upper quadrant. The area was meticulously prepped and draped in the usual ster ile fashion. The skin and subcutaneous tissues were infiltrated with buffered 1% Lidocaine for local anesthesia. A small skin incision was made. Utilizing concurrent real-time ultrasound guidance, a 19-gauge [employer] needle with 5 Chinese sheath was advanced into the abdomen. After the return of fluid, the catheter w as advanced, and the needle was removed. Approximately 6 L of cloudy straw-colored fluid was aspirat ed. The patient was administered albumin intravenously during the procedure as requested. After 6 L of f luid was aspirated, the catheter was removed, and hemostasis was achieved with direct pressure. A dr y sterile dressing was placed. The patient was transported to radiology nurse's holding area for fur ther monitoring prior to discharge. IMPRESSION: Technically successful ultrasound-guided paracentesis. There is a moderate amount of intraperitoneal free fluid persisting after paracentesis. POS: [facility]
[2018-01-11 10:26] VITALS: BP 107/65; TEMP 97.8
== END 2018-01-11 09:20 | disposition home or self-care (01) ==
LOC: ULT 07:30
PROVIDERS: ATTEND Internal Medicine Gastroenterology
PROC: 0W9G3ZX Drainage of Peritoneal Cavity, Percutaneous Approach, Diagnostic (ICD-10-PCS; principal; 2018-01-11)
PROC: BW40ZZZ Ultrasonography of Abdomen (ICD-10-PCS; 2018-01-11)
DX: K74.60 Unspecified cirrhosis of liver (principal); R18.8 Other ascites; D64.9 Anemia, unspecified; E11.9 Type 2 diabetes mellitus without complications; I10 Essential (primary) hypertension; M19.90 Unspecified osteoarthritis, unspecified site; E78.00 Pure hypercholesterolemia, unspecified; K21.9 Gastro-esophageal reflux disease without esophagitis; Z88.6 Allergy status to analgesic agent; Z88.8 Allergy status to other drugs, medicaments and biological substances; Z79.82 Long term (current) use of aspirin; Z79.84 Long term (current) use of oral hypoglycemic drugs; Z79.899 Other long term (current) drug therapy; Z98.890 Other specified postprocedural states; Z80.0 Family history of malignant neoplasm of digestive organs
CPT/HCPCS: 49083; 80053; 82105; P9047; 36415; J2001

== ENCOUNTER 2018-01-18 07:23 | Day surgery (SDC) | payer MEDICARE ==
[2018-01-17 10:36] VITALS: BMI 25.0
[2018-01-18] MEDS ORDERED: Albumin 25% 200 ML ONE (07:44)
[2018-01-18] MEDS ORDERED: Sodium Bicarbonate 2.5 MEQ/5 ML VIAL ONE (07:44)
[2018-01-18 10:39] VITALS: BP 107/59; TEMP 98
--- NOTE | 2018-01-18 12:11 | ULT ---
ULTRASAOUND GUIDED PARACENTESIS: Date: 01/18/18 INDICATION: Ascites. TECHNIQUE/FINDINGS: Informed consent was obtained. Preprocedural ultrasound images demonstrate a prominent amount of asci lauri. The site overlying the right lower quadrant was marked. Site was prepped and draped in the usual sterile fashion. Buffered 1% lidocaine was administered to the overlying subcutaneous tissues. Under ultrasound guidance, a 5 Greenlandic Yueh catheter was guided down into the large collection in the right lower quadrant. There was removal of 6 liters of peritoneal fluid. The patient tolerated the procedu re well and without difficulty. IMPRESSION: Successful removal of 6 liters of normal peritoneal fluid. POS: [facility]
== END 2018-01-18 09:15 | disposition home or self-care (01) ==
LOC: ULT 07:23
PROVIDERS: ATTEND Internal Medicine Gastroenterology
PROC: 0W9G3ZZ Drainage of Peritoneal Cavity, Percutaneous Approach (ICD-10-PCS; principal; 2018-01-18)
PROC: BW40ZZZ Ultrasonography of Abdomen (ICD-10-PCS; 2018-01-18)
DX: R18.8 Other ascites (principal); K74.60 Unspecified cirrhosis of liver; D50.0 Iron deficiency anemia secondary to blood loss (chronic); K21.9 Gastro-esophageal reflux disease without esophagitis; K31.819 Angiodysplasia of stomach and duodenum without bleeding; M19.90 Unspecified osteoarthritis, unspecified site; I10 Essential (primary) hypertension; E78.00 Pure hypercholesterolemia, unspecified; E11.9 Type 2 diabetes mellitus without complications; Z88.8 Allergy status to other drugs, medicaments and biological substances; Z79.84 Long term (current) use of oral hypoglycemic drugs; Z79.82 Long term (current) use of aspirin; Z79.899 Other long term (current) drug therapy
CPT/HCPCS: 49083; P9047

== ENCOUNTER → 2018-01-25 | Day surgery (SDC) | payer MEDICARE ==
[2018-01-24 07:53] VITALS: BMI 25.0
[~2018-01-25] MED LIST changes: +Lidocaine 1% MPF 2 ML VIAL ONE; -Sodium Chloride 0.9% 20 ML ONE
--- NOTE | 2018-01-25 11:07 | ULT ---
ULTRASOUND-GUIDED PARACENTESIS: CLINICAL INDICATION: Cirrhosis with recurrent ascites. PROCEDURE: After informed consent had been obtained, the patient was escorted to the ultrasound suite and placed in a supine position. The abdomen was imaged which revealed adequate ascites for the procedure. Th e skin of the abdomen was then prepped and draped in the standard sterile fashion and the skin surfac e, subcutaneous tissues, and peritoneal lining of the abdomen were anesthetized with 1% Lidocaine buf fered with sodium bicarbonate. A right lower quadrant approach was selected. A small skin incision was made at the site of topical anesthesia. Subsequently, under real-time ultrasound guidance a [place] catheter was advanced through the incision site into the peritoneal cavity. Ascites was present at the catheter hub. The catheter was then secured to vacuum sealed sterile containers, via sterile tub ing and subsequently 6 L of clear yellow ascites was drained from the patient. The patient was then removed from the patient. The patient tolerated the procedure well without evidence of complication. Postprocedure imaging revealed no complication and interval reduction in volume of ascites. The pa tient was monitored by a radiology nurse and was stable in condition. IMPRESSION: Technically successful ultrasound-guided paracentesis, as above. POS: [facility]
== END ==
LOC: ULT 07:24
PROVIDERS: ATTEND Internal Medicine Gastroenterology
PROC: 0W9G3ZZ Drainage of Peritoneal Cavity, Percutaneous Approach (ICD-10-PCS; principal; 2018-01-25)
DX: R18.8 Other ascites (principal); K74.60 Unspecified cirrhosis of liver; K31.819 Angiodysplasia of stomach and duodenum without bleeding; R53.83 Other fatigue; D64.9 Anemia, unspecified
CPT/HCPCS: 49083; P9047; J2001

== ENCOUNTER 2018-02-01 07:28 | Day surgery (SDC) | payer MEDICARE ==
[2018-01-28 09:46] VITALS: BMI 25.0
[~2018-02-01 07:28] MED LIST changes: -Albumin 25% 200 ML ONE; -Lidocaine 1% MPF 2 ML VIAL ONE; -Lidocaine 1% PF 5 ML VIAL ONE; +Prevnar 13-Val Conj/PF 0.5 ML SYRINGE IM ONE; -Sodium Bicarbonate 2.5 MEQ/5 ML VIAL ONE
[2018-02-01] MEDS ORDERED: Lidocaine 1% PF 5 ML VIAL ONE (07:41)
[2018-02-01] MEDS ORDERED: Albumin 25% 200 ML ONE (07:41)
[2018-02-01] MEDS ORDERED: Sodium Bicarbonate 2.5 MEQ/5 ML VIAL ONE (07:41)
--- NOTE | 2018-02-01 10:43 | ULT ---
ULTRASOUND GUIDED ABDOMINAL PARACENTESIS: INDICATIONS: Recurrent ascites. FINDINGS: Six liters of yellowish, slightly cloudy, acidic fluid removed from the right lower quadrant. PROCEDURE NOTE: Ultrasound shows large ascites in all quadrants. The right lower quadrant was chosen for puncture. The overlying skin was prepped and draped in a sterile manner. Local anesthesia was administered wit h Lidocaine. A 5 Greek Yueh catheter was placed into the acidic fluid in the right lower quadrant u nder ultrasound guidance. The catheter was advanced as the needle was removed. The catheter was att ached to suction drainage, and 6 L of acidic fluid was removed. The patient tolerated the procedure well, and there were no problems or complications. POS: [facility]
[2018-02-01 11:03] VITALS: BP 99/56; TEMP 97.9
== END 2018-02-01 09:10 | disposition home or self-care (01) ==
LOC: ULT 07:28
PROVIDERS: ATTEND Internal Medicine Gastroenterology
PROC: 0W9G3ZX Drainage of Peritoneal Cavity, Percutaneous Approach, Diagnostic (ICD-10-PCS; principal; 2018-02-01)
DX: K74.60 Unspecified cirrhosis of liver (principal); R18.8 Other ascites; D64.9 Anemia, unspecified; K21.9 Gastro-esophageal reflux disease without esophagitis; M19.90 Unspecified osteoarthritis, unspecified site; I10 Essential (primary) hypertension; E78.00 Pure hypercholesterolemia, unspecified; E11.9 Type 2 diabetes mellitus without complications; Z88.1 Allergy status to other antibiotic agents; Z88.8 Allergy status to other drugs, medicaments and biological substances; Z79.84 Long term (current) use of oral hypoglycemic drugs; Z79.899 Other long term (current) drug therapy; Z98.890 Other specified postprocedural states; Z86.010 Personal history of colon polyps
CPT/HCPCS: 49083; P9047; J2001

== ENCOUNTER 2018-02-08 07:36 | Day surgery (SDC) | payer MEDICARE ==
[2018-02-08 07:55] LABS: #Eosinphils 0.1 thou/uL (0.0-0.7); #Lymphocytes 0.8 thou/uL (1.20-3.40); #Monocytes 0.4 thou/uL (0.11-0.59); #Neutrophils 4.6 thou/uL (1.40-6.50); %Basophils 0.7 % (0.0-1.0); %Eosinophils 1.8 % (0.0-10.0); %Lymphocytes 13.9 % (21.0-51.0); %Monocytes 7.3 % (0.0-10.0); %Neutrophils 76.4 % (42.0-75.0); Hemoglobin 11.6 g/dL (12.0-16.0); Mean Corpuscular HGB CONC 32.6 g/dL (32.0-36.0); Mean Corpuscular Volume 91.9 fl (81.0-99.0); Mean Platelet Volume 8.4 fL (7.4-10.4); Platelet Count 181 thou/uL (130-400); RBC Distribution Width 13.6 % (11.5-14.5); Red Blood Cell (RBC) Count 3.88 mill/uL (4.20-5.40)
[2018-02-08] MEDS ORDERED: Lidocaine 1% PF 5 ML VIAL ONE (07:56)
[2018-02-08] MEDS ORDERED: Sodium Bicarbonate 2.5 MEQ/5 ML VIAL ONE (07:56)
[2018-02-08] MEDS ORDERED: Sodium Chloride 0.9% 10 ML ONE (07:56)
[2018-02-08] MEDS ORDERED: Albumin 25% 200 ML ONE (07:57)
[2018-02-08 08:00] LABS: INR-International Normal Ratio 1.1; PTT 35.8 SEC (22.9-36.1); Prothrombin Time 14.6 SEC (12.0-14.7)
--- NOTE | 2018-02-08 09:30 | ULT ---
PROCEDURE ULTRASOUND GUIDED ABDOMINAL PARACENTESIS: INDICATION: Recurrent ascites. FINDINGS: Six liters of yellowish clear ascitic fluid removed from the right abdomen. PROCEDURE NOTE: Four-quadrant ultrasound showed moderate ascites in all quadrants. Right mid abdomen was chosen for puncture. The overlying skin was prepped and draped in a sterile manner. Local anesthesia was admin istered with Lidocaine and bicarb. Tiny skin elaine was made with scalpel. A 5 Maltese ReachForce catheter w ith needle in place was introduced into the fluid of the right mid abdomen under ultrasound guidance. The catheter was advanced as needle was removed. The catheter was then attached to suction drainag e. Six liters of ascitic fluid removed. The patient tolerated the procedure fine and there were no problems or complications. POS: [facility]
[2018-02-08 12:00] VITALS: TEMP 97.9
[2018-02-08 12:06] VITALS: BP 107/31
== END 2018-02-08 09:15 | disposition home or self-care (01) ==
LOC: ULT 07:36
PROVIDERS: ATTEND Internal Medicine Gastroenterology
PROC: 0W9G3ZZ Drainage of Peritoneal Cavity, Percutaneous Approach (ICD-10-PCS; principal; 2018-02-08)
DX: R18.8 Other ascites (principal); K74.60 Unspecified cirrhosis of liver; I10 Essential (primary) hypertension; E78.00 Pure hypercholesterolemia, unspecified; D64.9 Anemia, unspecified; E11.9 Type 2 diabetes mellitus without complications; M19.90 Unspecified osteoarthritis, unspecified site; K31.819 Angiodysplasia of stomach and duodenum without bleeding; Z88.8 Allergy status to other drugs, medicaments and biological substances; Z79.82 Long term (current) use of aspirin; Z79.84 Long term (current) use of oral hypoglycemic drugs; Z79.899 Other long term (current) drug therapy
CPT/HCPCS: 49083; 85025; 85610; 85730; P9047; 36415; A4216; J2001

== ENCOUNTER 2018-02-15 07:27 | Day surgery (SDC) | payer MEDICARE ==
[2018-02-15] MEDS ORDERED: Sodium Bicarbonate 2.5 MEQ/5 ML VIAL ONE (07:39)
[2018-02-15] MEDS ORDERED: Albumin 25% 200 ML ONE (07:39)
[2018-02-15] MEDS ORDERED: Lidocaine 1% PF 5 ML VIAL ONE (07:40)
[2018-02-15 08:25] VITALS: BP 116/68; TEMP 97.6
[2018-02-15 09:05] LABS: Anion Gap 15 mmol/L (10-20); BUN (Urea Nitrogen) 39 mg/dL (9.8-20.1); Calc. Creatinine Clearance 0 mL/min (70-130); Calcium 9.2 mg/dL (7.8-10.44); Carbon Dioxide 19 mmol/L (23-31); Chloride 105 mmol/L (98-107); Estimated GFR-MDRD 35; Glucose 143 mg/dL (83-110); Potassium 4.1 mmol/L (3.5-5.1); Sodium 135 mmol/L (136-145)
--- NOTE | 2018-02-15 11:38 | ULT ---
ULTRASOUND GUIDED PARACENTESIS: Date: 02/15/18 HISTORY: Cirrhosis, refractory ascites. TECHNIQUE: After informed consent was obtained, the patient was placed on the sonography table in the supine pos ition. Limited sonographic evaluation of the abdomen was performed. An area in the mid axillary line right upper quadrant was marked and then meticulously prepped and draped in the usual sterile fashion . Skin and subcutaneous tissues were infiltrated with buffered 1% lidocaine for local anesthesia. A sma ll skin incision was made. Utilizing concurrent real-time ultrasound guidance, a 19 gauge Yueh needle with 5 Nicaraguan sheath was advanced into the abdomen. After return of fluid, sheath was advanced and t he needle was removed. 6 liters of slightly cloudy, straw-colored fluid was aspirated. The patient wa s administered 50 gm of albumin intravenously during the procedure as requested. After fluid was aspirated, the sheath was removed and hemostasis was achieved with direct pressure. T he patient tolerated the procedure well and without immediate complication. The patient was briefly m onitored in the radiology nurse's holding area prior to discharge. IMPRESSION: Technically successful ultrasound guided paracentesis with aspiration of 6 liters of slightly cloudy, straw-colored fluid. POS: [facility]
== END 2018-02-15 09:00 | disposition home or self-care (01) ==
LOC: ULT 07:27
PROVIDERS: ATTEND Internal Medicine Gastroenterology
PROC: 0W9G3ZZ Drainage of Peritoneal Cavity, Percutaneous Approach (ICD-10-PCS; principal; 2018-02-15)
DX: R18.8 Other ascites (principal); K74.60 Unspecified cirrhosis of liver; K31.819 Angiodysplasia of stomach and duodenum without bleeding; D64.9 Anemia, unspecified; Z88.8 Allergy status to other drugs, medicaments and biological substances
CPT/HCPCS: 49083; 80048; P9047; 36415; J2001

== ENCOUNTER → 2018-02-22 | Day surgery (SDC) | payer MEDICARE ==
[2018-02-21 11:56] VITALS: BMI 25.0
[~2018-02-22] MED LIST changes: +Albumin 25% 200 ML ONE; +Lidocaine 1% PF 5 ML VIAL ONE; +Sodium Bicarbonate 2.5 MEQ/5 ML VIAL ONE; +Sodium Chloride 0.9% 10 ML ONE
[2018-02-22 09:19] VITALS: TEMP 97.7
--- NOTE | 2018-02-22 10:35 | ULT ---
ULTRASOUND GUIDED PARACENTESIS: Date: 02-22-18 History: Cirrhosis and recurrent ascites. Technique: After informed consent was obtained, the patient was placed on the sonography table in sup ine position. An area in the right upper quadrant mid axillary line was meticulously prepped and drap ed in the usual sterile fashion. Skin and subcutaneous tissues were infiltrated with buffered 1% Lido chary for local anesthesia. Small skin incision was made. Utilizing concurrent real-time ultrasound guidance, a 19 gauge Yueh needle with 5 Albanian sheath was a dvanced into the abdomen. After the return of fluid, the sheath was advanced and needle was removed. Approximately 6 L of slightly cloudy straw-colored fluid was aspirated. 50 grams of Albumin was admin istered intravenously during the procedure as requested. Removal of 6 L of fluid was requested. As a result, the introducer sheath was removed and hemostatis was achieved with direct pressure. Dry steri le dressing was placed. Follow up ultrasound exam demonstrates residual intraperitoneal free fluid. IMPRESSION: Technically successful ultrasound guided paracentesis. POS: [facility]
== END ==
LOC: ULT 07:29
PROVIDERS: ATTEND Internal Medicine Gastroenterology
PROC: 0W9G3ZZ Drainage of Peritoneal Cavity, Percutaneous Approach (ICD-10-PCS; principal; 2018-02-22)
DX: R18.8 Other ascites (principal); K74.60 Unspecified cirrhosis of liver; K21.9 Gastro-esophageal reflux disease without esophagitis; D64.9 Anemia, unspecified; I10 Essential (primary) hypertension; M19.90 Unspecified osteoarthritis, unspecified site; E78.00 Pure hypercholesterolemia, unspecified; E11.9 Type 2 diabetes mellitus without complications; Z88.8 Allergy status to other drugs, medicaments and biological substances; Z79.84 Long term (current) use of oral hypoglycemic drugs; Z79.899 Other long term (current) drug therapy; Z79.82 Long term (current) use of aspirin
CPT/HCPCS: 49083; A4216; J2001; P9047

== ENCOUNTER 2018-03-01 07:21 | Day surgery (SDC) | payer MEDICARE ==
[2018-02-28 12:18] VITALS: BMI 25.0
[2018-03-01] MEDS ORDERED: Lidocaine 1% PF 5 ML VIAL ONE (07:39)
[2018-03-01] MEDS ORDERED: Sodium Bicarbonate 2.5 MEQ/5 ML VIAL ONE (07:39)
[2018-03-01] MEDS ORDERED: Albumin 25% 200 ML ONE (07:39)
[2018-03-01 09:11] VITALS: BP 116/62; TEMP 98
[2018-03-01 11:02] LABS: BF Color Yellow; Body Fluid Source Ascites Body Fluid; Clarity Hazy (Clear); RBC Background Count 0.008; Tube # EDTA; WBC/NonHematic-Auto 202 /cumm
[2018-03-01 11:09] LABS: BF RBC Count - Manual 120 /cumm
--- NOTE | 2018-03-01 11:52 | ULT ---
ULTRASOUND GUIDED PARACENTESIS: Date: HISTORY: Ascites. FINDINGS: Technically successful ultrasound guided paracentesis. A total of 6 liters of yellow-colored ascites was aspirated. No immediate postprocedure complication. TECHNIQUE: Consent obtained to perform an ultrasound guided paracentesis. Right lower quadrant was deemed approp riate. Skin was prepped and draped in the sterile fashion. 1% lidocaine, buffered with sodium bicarbo francine, was used for local anesthesia. Under ultrasound guidance, a 5 Faroese 7 cm Viewpointseh catheter was adv anced into the peritoneal space. Via vacuum bottles, a total of 6 liters of ascites were aspirated. T he patient tolerated the procedure well. There was evidence of ascites still present after aspiration . No immediate postprocedure complications. IMPRESSION: Successful ultrasound guided paracentesis. POS: [facility]
[2018-03-01 12:32] LABS: BF Segmented Neutrophils 8 %; Cell Count Non Hematic 61 %; Lymphocytes 31 %
== END 2018-03-01 09:05 | disposition home or self-care (01) ==
LOC: ULT 07:21
PROVIDERS: ATTEND Internal Medicine Gastroenterology
PROC: 0W9G3ZZ Drainage of Peritoneal Cavity, Percutaneous Approach (ICD-10-PCS; principal; 2018-03-01)
DX: R18.8 Other ascites (principal); I10 Essential (primary) hypertension; E78.00 Pure hypercholesterolemia, unspecified; E11.9 Type 2 diabetes mellitus without complications; K74.60 Unspecified cirrhosis of liver; D64.9 Anemia, unspecified; L40.50 Arthropathic psoriasis, unspecified; K21.9 Gastro-esophageal reflux disease without esophagitis; Z88.8 Allergy status to other drugs, medicaments and biological substances; Z79.84 Long term (current) use of oral hypoglycemic drugs; Z79.899 Other long term (current) drug therapy; Z79.82 Long term (current) use of aspirin
CPT/HCPCS: 49083; 89051; P9047; 85060; J2001

== ENCOUNTER 2018-03-08 07:29 | Day surgery (SDC) | payer MEDICARE ==
[2018-03-08] MEDS ORDERED: Albumin 25% 200 ML ONE (08:17)
[2018-03-08] MEDS ORDERED: Lidocaine 1% PF 5 ML VIAL ONE (08:17)
--- NOTE | 2018-03-08 10:46 | ULT ---
ULTRASOUND GUIDED PARACENTESIS: DATE: 03/08/18. HISTORY: Cirrhosis and refractory ascites. TECHNIQUE: After informed consent was obtained, the patient was placed on the sonography table in the supine pos ition. Limited sonographic evaluation of the abdomen was performed. An area in the mid-axillary darren e right upper quadrant was marked and then meticulously prepped and draped in the usual sterile fashi on. 50 gm of albumin was infused intravenously during the procedure as requested. The skin and subcutaneous tissues were infiltrated with buffered 1% Lidocaine for local anesthesia. A small skin incision was made. Utilizing concurrent real-time ultrasound guidance, a 19-gauge Xceliant needle with 4 Swedish sheath was advanced into the abdomen. After the return of fluid, the sheath was advanced, and the needle was removed. Six liters of slightly cloudy straw-colored fluid was aspirat ed. The introducer sheath was removed. Only 6 liters of fluid was requested for removal, and as a r esult there is a small to moderate amount of residual intraperitoneal free fluid present. A dry sterile dressing was placed at the puncture site. The patient tolerated the procedure well and without immediate complication. IMPRESSION: Technically successful ultrasound-guided paracentesis. POS: [facility]
[2018-03-08 16:29] VITALS: BP 100/57; TEMP 98.6
== END 2018-03-08 09:40 | disposition home or self-care (01) ==
LOC: ULT 07:29
PROVIDERS: ATTEND Internal Medicine Gastroenterology
PROC: 0W9G3ZZ Drainage of Peritoneal Cavity, Percutaneous Approach (ICD-10-PCS; principal; 2018-03-08)
DX: R18.8 Other ascites (principal); K74.60 Unspecified cirrhosis of liver; D50.0 Iron deficiency anemia secondary to blood loss (chronic); K21.9 Gastro-esophageal reflux disease without esophagitis; I10 Essential (primary) hypertension; E78.00 Pure hypercholesterolemia, unspecified; M06.9 Rheumatoid arthritis, unspecified; Z88.8 Allergy status to other drugs, medicaments and biological substances; Z79.84 Long term (current) use of oral hypoglycemic drugs; Z79.899 Other long term (current) drug therapy; Z79.82 Long term (current) use of aspirin
CPT/HCPCS: 49083; P9047; J2001

== ENCOUNTER 2018-03-15 07:28 | Day surgery (SDC) | payer MEDICARE ==
[2018-03-15 07:56] LABS: #Eosinphils 0.1 thou/uL (0.0-0.7); #Lymphocytes 0.8 thou/uL (1.20-3.40); #Monocytes 0.4 thou/uL (0.11-0.59); #Neutrophils 4.6 thou/uL (1.40-6.50); %Basophils 0.7 % (0.0-1.0); %Eosinophils 2.1 % (0.0-10.0); %Lymphocytes 12.8 % (21.0-51.0); %Monocytes 6.7 % (0.0-10.0); %Neutrophils 77.6 % (42.0-75.0); Hemoglobin 11.1 g/dL (12.0-16.0); Mean Corpuscular HGB CONC 32.7 g/dL (32.0-36.0); Mean Corpuscular Hemoglobin 30.1 pg (27.0-31.0); Mean Corpuscular Volume 91.8 fL (78.0-98.0); Mean Platelet Volume 8.6 fL (7.4-10.4); Platelet Count 183 thou/uL (130-400); RBC Distribution Width 12.7 % (11.5-14.5); White Blood Cell (WBC) Count 5.9 thou/uL (4.8-10.8)
[2018-03-15] MEDS ORDERED: Lidocaine 1% PF 5 ML VIAL ONE (07:58)
[2018-03-15] MEDS ORDERED: Albumin 25% 200 ML ONE (07:58)
[2018-03-15] MEDS ORDERED: Sodium Bicarbonate 2.5 MEQ/5 ML VIAL ONE (07:58)
[2018-03-15 08:32] LABS: INR-International Normal Ratio 1.1; Prothrombin Time 14.4 SEC (12.0-14.7)
[2018-03-15] MEDS ORDERED: Albumin 25% 100 ML ONE (09:19)
[2018-03-15 09:30] VITALS: TEMP 97.8
--- NOTE | 2018-03-15 10:36 | ULT ---
SONOGRAPHICALLY GUIDED PARACENTESIS: History: Recurrent ascites. FINDINGS: After explaining the procedure and answering all questions, sonographic survey shows a large amount o f free fluid throughout the abdomen. Sterile technique, buffered local anesthesia, sonographic guidan ce and a right lower quadrant approach were used to carefully advance a 19 gauge Yueh needle and cath eter into the free fluid. Catheter was left to drain a total volume of 8.0 L clear yellow liquid. Pos t procedure imaging shows a small amount of residual fluid. Patient tolerated the procedure well and was dismissed in good condition. IMPRESSION: Technically successful sonographic guided paracentesis. POS: [facility]
== END 2018-03-15 09:15 | disposition home or self-care (01) ==
LOC: ULT 07:28
PROVIDERS: ATTEND Internal Medicine Gastroenterology
PROC: 0W9G3ZZ Drainage of Peritoneal Cavity, Percutaneous Approach (ICD-10-PCS; principal; 2018-03-15)
DX: R18.8 Other ascites (principal); K74.60 Unspecified cirrhosis of liver; E11.9 Type 2 diabetes mellitus without complications; I10 Essential (primary) hypertension; K21.9 Gastro-esophageal reflux disease without esophagitis
CPT/HCPCS: 49083; 85025; 85610; 85730; P9047; 36415; J2001

== ENCOUNTER → 2018-03-22 | Day surgery (SDC) | payer MEDICARE ==
[2018-03-21 09:34] VITALS: BMI 25.0
[~2018-03-22] MED LIST changes: -Sodium Chloride 0.9% 10 ML ONE
--- NOTE | 2018-03-22 09:34 | ULT ---
PROCEDURE ULTRASOUND GUIDED ABDOMINAL PARACENTESIS: INDICATION: Recurrent ascites. FINDINGS: Six liters of clear yellowish ascites fluid removed from the left lower quadrant. PROCEDURE NOTE: Four-quadrant ultrasound revealed moderate ascites in all quadrants. The left lower quadrant was cho sen for puncture. The overlying skin was prepped and draped in a sterile manner. Local anesthesia w as administered with Lidocaine under ultrasound guidance. A tiny skin elaine was made with scalpel. A 5 Chinese CTI Towerseh catheter with guide needle in place was introduced into the ascitic fluid in the left lower quadrant ultrasound guidance. The catheter was advanced and the needle was removed. The jamee ter was then attached to suction drainage. Six liters of ascitic fluid was removed. There were no problems or complications. POS: [facility]
== END ==
LOC: ULT 07:26
PROVIDERS: ATTEND Internal Medicine Gastroenterology
PROC: 0W9G3ZZ Drainage of Peritoneal Cavity, Percutaneous Approach (ICD-10-PCS; principal; 2018-03-22)
DX: R18.8 Other ascites (principal); K74.60 Unspecified cirrhosis of liver; E11.9 Type 2 diabetes mellitus without complications; I10 Essential (primary) hypertension; M06.9 Rheumatoid arthritis, unspecified; E78.00 Pure hypercholesterolemia, unspecified; M19.90 Unspecified osteoarthritis, unspecified site; D64.9 Anemia, unspecified; Z79.899 Other long term (current) drug therapy; Z79.84 Long term (current) use of oral hypoglycemic drugs; Z79.82 Long term (current) use of aspirin; Z98.890 Other specified postprocedural states
CPT/HCPCS: 49083; P9047; J2001

== ENCOUNTER 2018-03-29 07:32 | Day surgery (SDC) | payer MEDICARE ==
[2018-03-29] MEDS ORDERED: Sodium Chloride 0.9% 10 ML ONE (07:49)
[2018-03-29] MEDS ORDERED: Albumin 25% 200 ML ONE (07:49)
[2018-03-29] MEDS ORDERED: Sodium Bicarbonate 2.5 MEQ/5 ML VIAL ONE (07:49)
[2018-03-29] MEDS ORDERED: Lidocaine 1% PF 5 ML VIAL ONE (07:49)
--- NOTE | 2018-03-29 11:49 | ULT ---
ULTRASOUND GUIDED PARACENTESIS: Date: 03/29/18 HISTORY: Ascites and cirrhosis. TECHNIQUE: After informed consent was obtained, the patient was placed on the sonography table in the supine pos ition. Patient was administered 50 grams albumin intravenously as requested during the procedure. Daisy lawrence sonographic evaluation of the abdomen was performed. An area in the mid axillary line right upp er quadrant was marked and then meticulously prepped and draped in the usual sterile fashion. Skin and subcutaneous tissues were infiltrated with buffered 1% lidocaine for local anesthesia. A sma ll skin incision was made. Utilizing concurrent real-time ultrasound guidance, a 19 gauge Trendzoeh needle with 5 Niuean catheter was advanced into the abdomen. After return of fluid, the catheter was advanc ed and the needle was removed. Approximately 6 liters of slight cloudy, straw-colored fluid, was [place] gus. The catheter was removed and hemostasis was achieved with direct pressure. The patient tolerated the procedure well and without immediate complication. IMPRESSION: 1. Technically successful ultrasound guided paracentesis with aspiration of 6 liters of slightly clay udy, straw-colored fluid. 2. Follow-up imaging after paracentesis demonstrates a moderate amount of residual intraperitoneal f ree fluid. POS: [facility]
[2018-03-29 13:42] VITALS: BP 120/63; TEMP 97.4
== END 2018-03-29 09:15 | disposition home or self-care (01) ==
LOC: ULT 07:32
PROVIDERS: ATTEND Internal Medicine Gastroenterology
PROC: 0W9G3ZZ Drainage of Peritoneal Cavity, Percutaneous Approach (ICD-10-PCS; principal; 2018-03-29)
DX: R18.8 Other ascites (principal); K74.60 Unspecified cirrhosis of liver; D64.9 Anemia, unspecified; M06.9 Rheumatoid arthritis, unspecified; K21.9 Gastro-esophageal reflux disease without esophagitis; E78.00 Pure hypercholesterolemia, unspecified; Z88.1 Allergy status to other antibiotic agents; Z88.8 Allergy status to other drugs, medicaments and biological substances
CPT/HCPCS: 49083; P9047; A4216; J2001

== ENCOUNTER 2018-04-05 07:30 | Day surgery (SDC) | payer MEDICARE ==
[2018-04-04 13:03] VITALS: BMI 26.4
[2018-04-05] MEDS ORDERED: Sodium Bicarbonate 2.5 MEQ/5 ML VIAL ONE (07:38)
[2018-04-05] MEDS ORDERED: Albumin 25% 200 ML ONE (07:38)
[2018-04-05 09:29] VITALS: BP 111/66; TEMP 97.4
--- NOTE | 2018-04-05 10:42 | ULT ---
SONOGRAPHIC GUIDED PARACENTESIS: HISTORY: Recurrent ascites. TECHNIQUE: After explaining the procedure and answering all questions, sonographic survey shows a large amount o f free fluid of the abdomen. Sterile technique, buffered local anesthesia, sonographic guidance, and a right abdominal approach were used to carefully advance a 19 gauge Yueh needle and catheter into t he free fluid. The catheter was left to drain a total volume of 6 L of slightly cloudy yellow liquid . Post procedure images show a moderate amount of residual fluid. The patient tolerated the procedure well and was dismissed in good condition. IMPRESSION: Technically successful sonographic guided paracentesis. POS: [facility]
== END 2018-04-05 09:00 | disposition home or self-care (01) ==
LOC: ULT 07:30
PROVIDERS: ATTEND Internal Medicine Gastroenterology
PROC: 0W9G3ZZ Drainage of Peritoneal Cavity, Percutaneous Approach (ICD-10-PCS; principal; 2018-04-05)
DX: R18.8 Other ascites (principal); K74.60 Unspecified cirrhosis of liver; E11.9 Type 2 diabetes mellitus without complications; K21.9 Gastro-esophageal reflux disease without esophagitis; I10 Essential (primary) hypertension; E78.00 Pure hypercholesterolemia, unspecified; D50.0 Iron deficiency anemia secondary to blood loss (chronic); M19.90 Unspecified osteoarthritis, unspecified site; Z79.84 Long term (current) use of oral hypoglycemic drugs; Z79.899 Other long term (current) drug therapy; Z88.8 Allergy status to other drugs, medicaments and biological substances
CPT/HCPCS: 49083; P9047

== ENCOUNTER 2018-04-12 07:25 | Day surgery (SDC) | payer MEDICARE ==
[2018-04-11 12:30] VITALS: BMI 26.6
[2018-04-12 07:41] LABS: #Eosinphils 0.1 thou/uL (0.0-0.7); #Lymphocytes 0.8 thou/uL (1.20-3.40); #Monocytes 0.5 thou/uL (0.11-0.59); #Neutrophils 3.3 thou/uL (1.40-6.50); %Basophils 0.4 % (0.0-1.0); %Eosinophils 2.3 % (0.0-10.0); %Lymphocytes 16.3 % (21.0-51.0); %Monocytes 9.8 % (0.0-10.0); %Neutrophils 71.2 % (42.0-75.0); Hemoglobin 11.6 g/dL (12.0-16.0); Mean Corpuscular HGB CONC 32.6 g/dL (32.0-36.0); Mean Corpuscular Hemoglobin 29.7 pg (27.0-31.0); Mean Corpuscular Volume 90.9 fL (78.0-98.0); Mean Platelet Volume 8.9 fL (7.4-10.4); Platelet Count 190 thou/uL (130-400); RBC Distribution Width 12.8 % (11.5-14.5); Red Blood Cell (RBC) Count 3.92 mill/uL (4.20-5.40); White Blood Cell (WBC) Count 4.7 thou/uL (4.8-10.8)
[2018-04-12 07:48] LABS: INR-International Normal Ratio 1.1; Prothrombin Time 14.7 SEC (12.0-14.7)
[2018-04-12 07:49] LABS: PTT 34.8 SEC (22.9-36.1)
[2018-04-12 08:00] LABS: Anion Gap 15 mmol/L (10-20); BUN (Urea Nitrogen) 37 mg/dL (9.8-20.1); Calc. Creatinine Clearance 30 mL/min (70-130); Calcium 9.2 mg/dL (7.8-10.44); Carbon Dioxide 21 mmol/L (23-31); Chloride 103 mmol/L (98-107); Estimated GFR-MDRD 28; Glucose 153 mg/dL (83-110); Potassium 4.2 mmol/L (3.5-5.1); Sodium 135 mmol/L (136-145)
--- NOTE | 2018-04-12 09:22 | ULT ---
SONOGRAPHIC GUIDED PARACENTESIS: HISTORY: Recurrent ascites. TECHNIQUE: After explaining the procedure and answering all questions, sonographic survey shows a large amount o f free fluid throughout the abdomen. Sterile technique, buffered local anesthesia, sonographic valencia nce, and a right lateral approach were used to carefully advance a 19 gauge Yueh needle and catheter into the free fluid. The catheter was left to drain a total volume of 6 L of clear-yellow liquid. P ost procedure imaging shows a large amount of remaining free fluid. The catheter was removed. The p atient tolerated the procedure well and was dismissed in good condition. IMPRESSION: Technically successful sonographic guided paracentesis. POS: [facility]
[2018-04-12 10:07] VITALS: BP 113/62; TEMP 97.5
== END 2018-04-12 08:55 | disposition home or self-care (01) ==
LOC: ULT 07:25
PROVIDERS: ATTEND Internal Medicine Gastroenterology
PROC: 0W9G3ZZ Drainage of Peritoneal Cavity, Percutaneous Approach (ICD-10-PCS; principal; 2018-04-12)
DX: R18.8 Other ascites (principal); K74.60 Unspecified cirrhosis of liver; E11.9 Type 2 diabetes mellitus without complications; K21.9 Gastro-esophageal reflux disease without esophagitis; K59.00 Constipation, unspecified; M19.90 Unspecified osteoarthritis, unspecified site; I10 Essential (primary) hypertension; E78.00 Pure hypercholesterolemia, unspecified; D50.0 Iron deficiency anemia secondary to blood loss (chronic); Z79.82 Long term (current) use of aspirin; Z79.84 Long term (current) use of oral hypoglycemic drugs; Z79.899 Other long term (current) drug therapy; Z88.8 Allergy status to other drugs, medicaments and biological substances; Z88.6 Allergy status to analgesic agent
CPT/HCPCS: 36415; 49083; 80048; 85025; 85610; 85730

== ENCOUNTER → 2018-04-19 | Day surgery (SDC) | payer MEDICARE ==
[2018-04-18 07:47] VITALS: BMI 22.8
--- NOTE | 2018-04-19 10:27 | ULT ---
SONOGRAPHIC GUIDED PARACENTESIS: History: Recurrent ascites. FINDINGS: After explaining the procedure and answering all questions, sonographic survey shows large amount of free fluid throughout the abdomen. Using sterile technique and buffered local anesthesia, sonographic guidance, and a right lateral approach were used to carefully advance a 19 gauge Yueh needle and cat heter into the free fluid. Catheter was left to drain a total volume of 6 L cloudy yellow liquid. Cat heter was removed. A large amount of free fluid remains. Patient tolerated the procedure well and was dismissed in good condition. IMPRESSION: 1. Technically successful sonographic paracentesis. 2. Large amount of free fluid remains in the abdomen after removal of 6 L. POS: [facility]
== END ==
LOC: ULT 07:33
PROVIDERS: ATTEND Radiology Diagnostic Radiology
PROC: 0W9G3ZZ Drainage of Peritoneal Cavity, Percutaneous Approach (ICD-10-PCS; principal; 2018-04-19)
DX: R18.8 Other ascites (principal); K74.60 Unspecified cirrhosis of liver; K31.819 Angiodysplasia of stomach and duodenum without bleeding; R53.83 Other fatigue; D64.9 Anemia, unspecified; Z88.8 Allergy status to other drugs, medicaments and biological substances
CPT/HCPCS: 49083; P9047; J2001

== ENCOUNTER 2018-05-03 07:31 | Day surgery (SDC) | payer MEDICARE ==
[2018-05-03] MEDS ORDERED: Albumin 25% 200 ML ONE (07:41)
[2018-05-03] MEDS ORDERED: Sodium Bicarbonate 2.5 MEQ/5 ML VIAL ONE (07:41)
[2018-05-03] MEDS ORDERED: Lidocaine 1% PF 5 ML VIAL ONE (07:41)
[2018-05-03 09:18] VITALS: BP 101/64; TEMP 97.4
--- NOTE | 2018-05-03 11:01 | ULT ---
ULTRASOUND GUIDED PARACENTESIS: INDICATIONS: Recurrent ascites. TECHNIQUE: Informed consent was obtained. The right lower quadrant was marked. The site was prepped and draped in the usual sterile fashion. Buffered 1% Lidocaine was administered to the overlying subcutaneous tissues. Under ultrasound guidance, a 5 Kazakh Yueh needle and catheter were introduced into the lar ge collection in the right lower quadrant. There was removal of 6 L of normal appearing peritoneal f luid. The patient tolerated the procedure without difficulty. IMPRESSION: Successful sonographic guided paracentesis with removal of 6 L of normal peritoneal fluid. POS: [facility]
== END 2018-05-03 09:10 | disposition home or self-care (01) ==
LOC: ULT 07:31
PROVIDERS: ATTEND Internal Medicine Gastroenterology
PROC: 0W9G3ZZ Drainage of Peritoneal Cavity, Percutaneous Approach (ICD-10-PCS; principal; 2018-05-03)
DX: R18.8 Other ascites (principal); K74.60 Unspecified cirrhosis of liver; K31.819 Angiodysplasia of stomach and duodenum without bleeding; D64.9 Anemia, unspecified
CPT/HCPCS: 49083; P9047; J2001

== ENCOUNTER 2018-05-10 07:25 | Day surgery (SDC) | payer MEDICARE ==
[2018-05-10 07:54] LABS: #Eosinphils 0.1 thou/uL (0.0-0.7); #Lymphocytes 0.7 thou/uL (1.20-3.40); #Monocytes 0.5 thou/uL (0.11-0.59); #Neutrophils 3.9 thou/uL (1.40-6.50); %Basophils 0.7 % (0.0-1.0); %Eosinophils 1.7 % (0.0-10.0); %Lymphocytes 13.6 % (21.0-51.0); %Monocytes 8.6 % (0.0-10.0); %Neutrophils 75.4 % (42.0-75.0); Hemoglobin 11.2 g/dL (12.0-16.0); Mean Corpuscular HGB CONC 32.5 g/dL (32.0-36.0); Mean Corpuscular Hemoglobin 28.8 pg (27.0-31.0); Mean Corpuscular Volume 88.7 fL (78.0-98.0); Mean Platelet Volume 8.7 fL (7.4-10.4); Platelet Count 206 thou/uL (130-400); RBC Distribution Width 12.9 % (11.5-14.5); Red Blood Cell (RBC) Count 3.88 mill/uL (4.20-5.40); White Blood Cell (WBC) Count 5.2 thou/uL (4.8-10.8)
[2018-05-10 08:00] LABS: INR-International Normal Ratio 1.2; PTT 35.7 SEC (22.9-36.1); Prothrombin Time 14.8 SEC (12.0-14.7)
[2018-05-10 08:13] LABS: Anion Gap 14 mmol/L (10-20); BUN (Urea Nitrogen) 38 mg/dL (9.8-20.1); Calc. Creatinine Clearance 0 mL/min (70-130); Calcium 9.3 mg/dL (7.8-10.44); Carbon Dioxide 20 mmol/L (23-31); Chloride 105 mmol/L (98-107); Estimated GFR-MDRD 29; Glucose 123 mg/dL (83-110); Potassium 4.1 mmol/L (3.5-5.1); Sodium 135 mmol/L (136-145)
[2018-05-10] MEDS ORDERED: Albumin 25% 200 ML ONE (08:19)
[2018-05-10] MEDS ORDERED: Lidocaine 1% PF 5 ML VIAL ONE (08:19)
[2018-05-10] MEDS ORDERED: Sodium Bicarbonate 2.5 MEQ/5 ML VIAL ONE (08:19)
[2018-05-10 08:49] VITALS: BP 108/60; TEMP 97.8
--- NOTE | 2018-05-10 10:54 | ULT ---
ULTRASOUND GUIDED PARACENTESIS: INDICATION: Ascites. TECHNIQUE: Informed consent was obtained. Preprocedure ultrasound images were performed. A site overlying the right lower quadrant was marked. The site was prepped and draped in the usual sterile fashion. Buff ered 1% Lidocaine was administered to the overlying subcutaneous tissues. Under ultrasound guidance, a 5 Swedish Yueh catheter was guided down into the large collection in the right lower quadrant. Si x liters of normal-appearing peritoneal fluid was removed. The patient tolerated the procedure witho ut difficulty. IMPRESSION: Successful sonographic-guided paracentesis with removal of 6 liters of normal peritoneal fluid. POS: [facility]
== END 2018-05-10 09:55 | disposition home or self-care (01) ==
LOC: ULT 07:25
PROVIDERS: ATTEND Internal Medicine Gastroenterology
PROC: 0W9G3ZZ Drainage of Peritoneal Cavity, Percutaneous Approach (ICD-10-PCS; principal; 2018-05-10)
DX: K74.69 Other cirrhosis of liver (principal); R18.8 Other ascites; D50.0 Iron deficiency anemia secondary to blood loss (chronic); M19.90 Unspecified osteoarthritis, unspecified site; I10 Essential (primary) hypertension; E78.00 Pure hypercholesterolemia, unspecified; E11.9 Type 2 diabetes mellitus without complications; Z79.82 Long term (current) use of aspirin; Z79.84 Long term (current) use of oral hypoglycemic drugs; Z79.899 Other long term (current) drug therapy; Z88.6 Allergy status to analgesic agent; Z88.8 Allergy status to other drugs, medicaments and biological substances
CPT/HCPCS: 49083; 80048; 85025; 85610; 85730; P9047; 36415; J2001

== ENCOUNTER → 2018-05-17 | Day surgery (SDC) | payer MEDICARE ==
[~2018-05-17] MED LIST changes: -Prevnar 13-Val Conj/PF 0.5 ML SYRINGE IM ONE
[2018-05-17 12:06] LABS: ALT (SGPT) 23 U/L (8-55); AST (SGOT) 33 U/L (5-34); Albumin 3.3 g/dL (3.4-4.8); Alkaline Phosphatase 113 U/L (40-150); Bilirubin, Direct 0.4 mg/dL (0.1-0.3); Bilirubin, Total 1.1 mg/dL (0.2-1.2); Protein, Total 6.3 g/dL (6.0-8.3)
--- NOTE | 2018-05-17 12:07 | ULT ---
HEPATIC SONOGRAM WITH DUPLEX EVALUATION: HISTORY: Cirrhosis. FINDINGS: The gallbladder is surgically absent. The common duct is 0.5 cm. The liver is nodular and heterogen eous. A large amount of free fluid is present throughout the abdomen. No intrahepatic biliary dilat ation. The spleen is 13.2 cm. Good color and spectral Doppler flow within the hepatic and splenic arteries. Portal venous flow is toward the liver. Hepatic venous flow is toward the IVC. IMPRESSION: 1. Cirrhosis. 2. Findings of portal venous hypertension include a large amount of ascites and mild splenomegaly. 3. Status post cholecystectomy. POS: [facility]
[2018-05-17 12:11] LABS: INR-International Normal Ratio 1.1; Prothrombin Time 14.7 SEC (12.0-14.7)
--- NOTE | 2018-05-17 12:11 | ULT ---
SONOGRAPHICALLY GUIDED PARACENTESIS: History: Recurrent ascites. FINDINGS: After explaining the procedure and answering all questions, sonographic survey shows a large amount o f free fluid throughout the abdomen. Sterile technique, buffered local anesthesia, sonographic guidan ce and right lateral approach were used to carefully advance a 19 gauge Yueh needle and catheter into the free fluid. Catheter was brought to drain a total volume of 8.0 L slightly hazy dark yellow liqu id with an off white foam. Catheter was removed. Post procedure imaging showed a large amount of residual fluid. Patient tolerat ed the procedure well and was dismissed in good condition. IMPRESSION: Technically successful sonographically paracentesis. 8L were drained, leaving significant fluid withi n the abdomen. POS: [facility]
[2018-05-17 13:31] VITALS: BP 111/65; TEMP 98
== END | disposition home or self-care (01) ==
LOC: ULT 12:27
PROVIDERS: ATTEND Internal Medicine Gastroenterology
PROC: 0W9G3ZZ Drainage of Peritoneal Cavity, Percutaneous Approach (ICD-10-PCS; principal; 2018-05-17)
DX: K74.60 Unspecified cirrhosis of liver (principal); R18.8 Other ascites; Z79.82 Long term (current) use of aspirin; Z79.84 Long term (current) use of oral hypoglycemic drugs; Z79.899 Other long term (current) drug therapy; Z88.6 Allergy status to analgesic agent; Z88.8 Allergy status to other drugs, medicaments and biological substances
CPT/HCPCS: 49083; 76705; 80076; 85610; P9047; J2001

== ENCOUNTER 2018-05-24 07:21 | Day surgery (SDC) | payer MEDICARE ==
[~2018-05-24 07:21] MED LIST changes: +Sodium Chloride 0.9% 10 ML ONE
--- NOTE | 2018-05-24 10:37 | ULT ---
ULTRASOUND GUIDED PARACENTESIS: INDICATION: Recurrent ascites. COMPARISON: Prior study dated . TECHNIQUE: Informed consent was obtained. Preprocedure sonographic images demonstrate a large amount of ascites . The site overlying the right lower quadrant was marked. The site was prepped and draped in the us ua sterile fashion. Buffered 1% Lidocaine was administered to the overlying subcutaneous tissues. Under ultrasound guidance, a 5 Serbian Yueh catheter was guided down into the large collection in the right lower quadrant. There was removal of 8 liters of normal-appearing peritoneal fluid. The patie nt tolerated the procedure without difficulty. IMPRESSION: Successful ultrasound-guided paracentesis removal of 8 liters of normal-appearing free peritoneal flu id. POS: [facility]
[2018-05-24 10:44] VITALS: BMI 28.3
[2018-05-24 10:46] VITALS: BP 100/53; TEMP 97.8
== END 2018-05-24 09:10 | disposition home or self-care (01) ==
LOC: ULT 07:21
PROVIDERS: ATTEND Internal Medicine Gastroenterology
PROC: 0W9G3ZZ Drainage of Peritoneal Cavity, Percutaneous Approach (ICD-10-PCS; principal; 2018-05-24)
DX: R18.8 Other ascites (principal); K74.60 Unspecified cirrhosis of liver; K31.819 Angiodysplasia of stomach and duodenum without bleeding
CPT/HCPCS: 49083; P9047; A4216; J2001

== ENCOUNTER 2018-05-31 07:32 | Day surgery (SDC) | payer MEDICARE ==
[2018-05-31] MEDS ORDERED: Sodium Bicarbonate 2.5 MEQ/5 ML VIAL ONE (07:39)
[2018-05-31] MEDS ORDERED: Lidocaine 1% PF 5 ML VIAL ONE (07:39)
[2018-05-31] MEDS ORDERED: Albumin 25% 200 ML ONE (08:02)
--- NOTE | 2018-05-31 10:39 | ULT ---
ULTRASOUND GUIDED PARACENTESIS: Date: 05/31/18 COMPARISON: 05/24/18. HISTORY: Ascites. FINDINGS: Successful ultrasound guided paracentesis. A total of 7 liters of yellow-colored ascites was removed. TECHNIQUE: Consent obtained to perform an ultrasound guided paracentesis. Right lower quadrant was deemed approp riate. Skin was prepped and draped in the sterile fashion. 1% lidocaine, buffered with sodium bicarbo francine, was used for local anesthesia. Under ultrasound guidance, a 5 Palestinian 7.0 cm [employer] catheter was a dvanced into the peritoneal space. Via vacuum bottles, a total of 7 liters of yellow-colored ascites was aspirated. The patient tolerated the procedure well. No immediate or postprocedure complication. IMPRESSION: Successful ultrasound guided paracentesis. POS: [facility]
[2018-05-31 11:57] VITALS: BP 106/65; TEMP 97.8
== END 2018-05-31 09:15 | disposition home or self-care (01) ==
LOC: ULT 07:32
PROVIDERS: ATTEND Internal Medicine Gastroenterology
PROC: 0W9G3ZZ Drainage of Peritoneal Cavity, Percutaneous Approach (ICD-10-PCS; principal; 2018-05-31)
DX: R18.8 Other ascites (principal); K74.60 Unspecified cirrhosis of liver; Z79.84 Long term (current) use of oral hypoglycemic drugs; Z79.82 Long term (current) use of aspirin; Z79.899 Other long term (current) drug therapy; Z88.6 Allergy status to analgesic agent; Z88.8 Allergy status to other drugs, medicaments and biological substances
CPT/HCPCS: 49083; P9047; J2001

== ENCOUNTER 2018-06-07 07:30 | Day surgery (SDC) | payer MEDICARE ==
[2018-06-07 09:10] VITALS: BP 104/59; TEMP 97.8
--- NOTE | 2018-06-07 10:00 | ULT ---
SONOGRAPHIC GUIDED PARACENTESIS: History: Recurrent ascites. FINDINGS: After explaining the procedure and answering all questions, sonographic survey shows a large amount o f free fluid throughout the abdomen. Sterile technique, buffered local anesthesia, sonographic guidan ce, and a right lateral abdominal approach were used to carefully advance a 19 gauge Yueh needle and catheter into the free fluid. Catheter was left to drain a total volume of 8.0 L slightly cloudy yell ow liquid. The catheter was removed with small amount of fluid remaining. Patient tolerated the proce dure well and was dismissed in improved condition. IMPRESSION: Technically successful sonographic guided paracentesis. POS: [facility]
== END 2018-06-07 09:10 | disposition home or self-care (01) ==
LOC: ULT 07:30
PROVIDERS: ATTEND Internal Medicine Gastroenterology
PROC: 0W9G3ZZ Drainage of Peritoneal Cavity, Percutaneous Approach (ICD-10-PCS; principal; 2018-06-07)
DX: R18.8 Other ascites (principal); K74.60 Unspecified cirrhosis of liver; Z88.6 Allergy status to analgesic agent; Z88.8 Allergy status to other drugs, medicaments and biological substances; Z79.84 Long term (current) use of oral hypoglycemic drugs; Z79.899 Other long term (current) drug therapy; Z79.82 Long term (current) use of aspirin
CPT/HCPCS: 49083

== ENCOUNTER 2018-06-14 07:31 | Day surgery (SDC) | payer MEDICARE ==
[2018-06-14] MEDS ORDERED: Sodium Bicarbonate 2.5 MEQ/5 ML VIAL ONE (07:41)
[2018-06-14] MEDS ORDERED: Sodium Chloride 0.9% 10 ML ONE (07:41)
[2018-06-14] MEDS ORDERED: Albumin 25% 200 ML ONE (07:41)
[2018-06-14] MEDS ORDERED: Lidocaine 1% PF 5 ML VIAL ONE (07:41)
[2018-06-14 07:49] LABS: #Eosinphils 0.1 thou/uL (0.0-0.7); #Lymphocytes 0.7 thou/uL (1.20-3.40); #Monocytes 0.4 thou/uL (0.11-0.59); #Neutrophils 3.7 thou/uL (1.40-6.50); %Basophils 0.7 % (0.0-1.0); %Eosinophils 1.7 % (0.0-10.0); %Lymphocytes 14.2 % (21.0-51.0); %Monocytes 8.2 % (0.0-10.0); %Neutrophils 75.3 % (42.0-75.0); Hemoglobin 10.7 g/dL (12.0-16.0); Mean Corpuscular HGB CONC 31.9 g/dL (32.0-36.0); Mean Corpuscular Hemoglobin 27.8 pg (27.0-31.0); Mean Corpuscular Volume 87.2 fL (78.0-98.0); Mean Platelet Volume 8.7 fL (7.4-10.4); Platelet Count 212 thou/uL (130-400); RBC Distribution Width 13.6 % (11.5-14.5); Red Blood Cell (RBC) Count 3.83 mill/uL (4.20-5.40)
[2018-06-14 07:56] LABS: PTT 35.3 SEC (22.9-36.1)
[2018-06-14 07:57] LABS: INR-International Normal Ratio 1.2; Prothrombin Time 14.9 SEC (12.0-14.7)
--- NOTE | 2018-06-14 10:32 | ULT ---
ULTRASOUND GUIDED PARACENTESIS: History: Recurrent ascites. Technique: After informed consent was obtained, the patient was prepped and draped in the normal sterile fashion . Local anesthesia was obtained with 1% Xylocaine mixed with sodium bicarb. 6 Armenian Yueh catheter wa s introduced in the right lower quadrant without difficulty. Approximately 7.6 L of typical straw col ored ascites was obtained. The patient tolerated the procedure well. There were no immediate complica tions. IMPRESSION: Ultrasound guided paracentesis with 7.6 L of fluid. POS: [facility]
[2018-06-14 12:31] VITALS: BP 103/56; TEMP 98.6
== END 2018-06-14 09:25 | disposition home or self-care (01) ==
LOC: ULT 07:31
PROVIDERS: ATTEND Internal Medicine Gastroenterology
PROC: 0W9G3ZZ Drainage of Peritoneal Cavity, Percutaneous Approach (ICD-10-PCS; principal; 2018-06-14)
DX: R18.8 Other ascites (principal); K74.60 Unspecified cirrhosis of liver; Z79.82 Long term (current) use of aspirin; Z79.84 Long term (current) use of oral hypoglycemic drugs; Z79.899 Other long term (current) drug therapy; Z88.6 Allergy status to analgesic agent; Z88.8 Allergy status to other drugs, medicaments and biological substances
CPT/HCPCS: 49083; 85025; 85610; 85730; P9047; 36415; A4216; J2001

== ENCOUNTER 2018-06-21 07:30 | Day surgery (SDC) | payer MEDICARE ==
[2018-06-21] MEDS ORDERED: Sodium Bicarbonate 2.5 MEQ/5 ML VIAL ONE (07:56)
[2018-06-21] MEDS ORDERED: Lidocaine 1% PF 5 ML VIAL ONE (07:56)
[2018-06-21] MEDS ORDERED: Albumin 25% 200 ML ONE (07:56)
[2018-06-21 10:32] VITALS: BP 116/59; TEMP 97.8
--- NOTE | 2018-06-21 10:43 | ULT ---
ULTRASOUND GUIDED PARACENTESIS: HISTORY: Ascites. COMPARISON: Paracentesis from 06/14/2018. FINDINGS: The patient was brought to the ultrasound suite. All questions were answered. The right lower quadr ant was prepped and draped in the normal sterile fashion, after informed consent was obtained and a t juan jose out performed. Buffered Lidocaine 3 mL was instilled into the superficial and deep soft tissues, and 8 L of straw-co lored fluid was removed. The patient tolerated the procedure well without complications. IMPRESSION: Technically successful ultrasound-guided paracentesis. POS: [facility]
== END 2018-06-21 09:45 | disposition home or self-care (01) ==
LOC: ULT 07:30
PROVIDERS: ATTEND Internal Medicine Gastroenterology
PROC: 0W9G3ZZ Drainage of Peritoneal Cavity, Percutaneous Approach (ICD-10-PCS; principal; 2018-06-21)
DX: R18.8 Other ascites (principal); K74.60 Unspecified cirrhosis of liver; K31.89 Other diseases of stomach and duodenum; D64.9 Anemia, unspecified
CPT/HCPCS: 49083; P9047; J2001

== ENCOUNTER 2018-06-28 07:25 | Day surgery (SDC) | payer MEDICARE ==
[2018-06-28] MEDS ORDERED: Lidocaine 1% PF 5 ML VIAL ONE (07:34)
[2018-06-28] MEDS ORDERED: Albumin 25% 200 ML ONE (07:34)
[2018-06-28] MEDS ORDERED: Sodium Bicarbonate 2.5 MEQ/5 ML VIAL ONE (07:34)
[2018-06-28 08:16] VITALS: BP 106/62; TEMP 98
--- NOTE | 2018-06-28 15:00 | ULT ---
ULTRASOUND GUIDED PARACENTESIS: Date: 06/28/18 HISTORY: 77-year-old with history of ascites. TECHNIQUE/FINDINGS: Informed consent was obtained from the patient. A large collection of intraperitoneal fluid was locat ed using ultrasound guidance. The overlying skin was prepped and draped in the usual sterile manner. A 1% lidocaine solution was used to anesthetize the overlying soft tissues. A small dermatotomy was m talia. Using ultrasound guidance, a 5 Hebrew Yueh needle was placed into the peritoneal cavity. A total of 7.2 liters of intraperitoneal fluid was removed without difficulty. IMPRESSION: Successful ultrasound guided paracentesis. POS: [facility]
== END 2018-06-28 09:40 | disposition home or self-care (01) ==
LOC: ULT 07:25
PROVIDERS: ATTEND Internal Medicine Gastroenterology
PROC: 0W9G3ZZ Drainage of Peritoneal Cavity, Percutaneous Approach (ICD-10-PCS; principal; 2018-06-28)
DX: R18.8 Other ascites (principal); K74.60 Unspecified cirrhosis of liver; Z88.6 Allergy status to analgesic agent; Z88.8 Allergy status to other drugs, medicaments and biological substances; Z79.82 Long term (current) use of aspirin; Z79.84 Long term (current) use of oral hypoglycemic drugs; Z79.899 Other long term (current) drug therapy
CPT/HCPCS: 49083; P9047; J2001

== ENCOUNTER 2018-07-05 07:25 | Day surgery (SDC) | payer MEDICARE ==
[2018-07-05] MEDS ORDERED: Sodium Bicarbonate 2.5 MEQ/5 ML VIAL ONE (07:45)
[2018-07-05] MEDS ORDERED: Albumin 25% 200 ML ONE (07:45)
[2018-07-05] MEDS ORDERED: Lidocaine 1% PF 5 ML VIAL ONE (07:45)
--- NOTE | 2018-07-05 11:03 | ULT ---
SONOGRAPHICALLY GUIDED PARACENTESIS: History: Recurrent ascites. FINDINGS: After explaining the procedure and answering all questions, the sonographic survey of the abdomen vaughn ws a large amount of free fluid. Sterile technique, buffered local anesthesia, sonographic guidance a nd a right lateral approach were used to carefully advance a 19 gauge Yueh needle and catheter into t he free fluid. The catheter was left to drain a total volume of 6.45 hazy yellow liquid. Post procedu re imaging shows minimal residual fluid. Catheter was removed. Patient tolerated the procedure well a nd was dismissed in good condition. IMPRESSION: Technically successful sonographic guided paracentesis. POS: [facility]
[2018-07-05 12:16] VITALS: BP 101/55; TEMP 98.1
== END 2018-07-05 09:15 | disposition home or self-care (01) ==
LOC: ULT 07:25
PROVIDERS: ATTEND Internal Medicine Gastroenterology
PROC: 0W9G3ZZ Drainage of Peritoneal Cavity, Percutaneous Approach (ICD-10-PCS; principal; 2018-07-05)
DX: R18.8 Other ascites (principal); K74.60 Unspecified cirrhosis of liver; Z79.82 Long term (current) use of aspirin; Z79.84 Long term (current) use of oral hypoglycemic drugs; Z79.899 Other long term (current) drug therapy; Z88.6 Allergy status to analgesic agent; Z88.8 Allergy status to other drugs, medicaments and biological substances
CPT/HCPCS: 49083; P9047; J2001

== ENCOUNTER 2018-07-12 07:26 | Day surgery (SDC) | payer MEDICARE ==
[2018-07-12] MEDS ORDERED: Albumin 25% 200 ML ONE (07:44)
[2018-07-12] MEDS ORDERED: Sodium Bicarbonate 2.5 MEQ/5 ML VIAL ONE (07:44)
[2018-07-12] MEDS ORDERED: Lidocaine 1% PF 5 ML VIAL ONE (07:44)
[2018-07-12] MEDS ORDERED: Sodium Chloride 0.9% 10 ML ONE (08:02)
[2018-07-12 09:52] VITALS: BMI 22.8
[2018-07-12 09:54] VITALS: BP 106/57; TEMP 98.8
--- NOTE | 2018-07-12 11:11 | ULT ---
ULTRASOUND GUIDED PARACENTESIS: 07/12/2018 HISTORY: Cirrhosis. Ascites. TECHNIQUE: After informed consent was obtained, the patient was placed on the sonography table in the supine pos ition, and 100 g of albumin was administered intravenously during the exam, as requested. A limited sonographic evaluation of the abdomen was performed. An area in the mid axillary line, right upper q uadrant, was marked and then meticulously prepped and draped in the usual sterile fashion. The skin and subcutaneous tissues were infiltrated with buffered 1% Lidocaine for local anesthesia. A small skin incision was made. Utilizing concurrent real-time ultrasound guidance, a 19 gauge Cortica needle with a 5 Estonian sheath was advanced into the abdomen. After the return of fluid, the sheath w as advanced and the needle was removed. Approximately 7600 mL of cloudy, straw-colored fluid was asp irated. The catheter was removed. Hemostasis was achieved with direct pressure. A dry, sterile jt ssing was placed. Imaging post paracentesis demonstrates decrease in anterior peritoneal free fluid. The patient tolerated the procedure well and without immediate complication. IMPRESSION: Technically successful ultrasound guided paracentesis. POS: [facility]
== END 2018-07-12 09:32 | disposition home or self-care (01) ==
LOC: ULT 07:26
PROVIDERS: ATTEND Internal Medicine Gastroenterology
PROC: 0W9G3ZZ Drainage of Peritoneal Cavity, Percutaneous Approach (ICD-10-PCS; principal; 2018-07-12)
DX: R18.8 Other ascites (principal); K74.60 Unspecified cirrhosis of liver; K31.819 Angiodysplasia of stomach and duodenum without bleeding
CPT/HCPCS: 49083; P9047; J2001

== ENCOUNTER 2018-07-19 07:30 | Day surgery (SDC) | payer MEDICARE ==
[2018-07-19 07:50] LABS: #Basophils 0.1 thou/uL (0.0-0.2); #Eosinphils 0.1 thou/uL (0.0-0.7); #Lymphocytes 0.9 thou/uL (1.20-3.40); #Monocytes 0.6 thou/uL (0.11-0.59); #Neutrophils 5.2 thou/uL (1.40-6.50); %Basophils 0.8 % (0.0-1.0); %Eosinophils 1.2 % (0.0-10.0); %Lymphocytes 13.8 % (21.0-51.0); %Monocytes 8.3 % (0.0-10.0); %Neutrophils 75.9 % (42.0-75.0); Hemoglobin 11.4 g/dL (12.0-16.0); Mean Corpuscular HGB CONC 31.1 g/dL (32.0-36.0); Mean Corpuscular Hemoglobin 27.5 pg (27.0-31.0); Mean Corpuscular Volume 88.2 fL (78.0-98.0); Mean Platelet Volume 8.6 fL (7.4-10.4); Platelet Count 228 thou/uL (130-400); RBC Distribution Width 14.7 % (11.5-14.5); Red Blood Cell (RBC) Count 4.14 mill/uL (4.20-5.40); White Blood Cell (WBC) Count 6.8 thou/uL (4.8-10.8)
[2018-07-19] MEDS ORDERED: Sodium Bicarbonate 2.5 MEQ/5 ML VIAL ONE (07:53)
[2018-07-19] MEDS ORDERED: Lidocaine 1% PF 5 ML VIAL ONE (07:54)
[2018-07-19] MEDS ORDERED: Albumin 25% 200 ML ONE (07:54)
[2018-07-19 07:59] LABS: PTT 33.8 SEC (22.9-36.1); Prothrombin Time 13.6 SEC (12.0-14.7)
[2018-07-19 09:27] VITALS: BMI 22.8
--- NOTE | 2018-07-19 10:19 | ULT ---
ULTRASOUND GUIDED PARACENTESIS: History: Ascites. Comparison: 07-12-18 FINDINGS: Successful ultrasound guided paracentesis. A total of 7.5 L of yellow colored ascites was removed. Technique: Consent was obtained for an ultrasound guided paracentesis. Right lower quadrant was deemed appropria te. Skin was prepped and draped in sterile fashion. 1% Lidocaine buffered with sodium bicarbonate use d for local anesthesia. Under ultrasound guidance, a 7 English [employer] catheter was advanced into the per itoneal space. Via vacuum bottles, a total of 7.5 L of yellow colored ascites was aspirated. Patient tolerated the procedure well. No immediate or post procedure complications. IMPRESSION: Successful ultrasound guided paracentesis. POS: [facility]
== END 2018-07-19 09:15 | disposition home or self-care (01) ==
LOC: ULT 07:30
PROVIDERS: ATTEND Internal Medicine Gastroenterology
PROC: 0W9G3ZZ Drainage of Peritoneal Cavity, Percutaneous Approach (ICD-10-PCS; principal; 2018-07-19)
DX: R18.8 Other ascites (principal); K74.60 Unspecified cirrhosis of liver; Z79.84 Long term (current) use of oral hypoglycemic drugs; Z79.899 Other long term (current) drug therapy; Z88.6 Allergy status to analgesic agent; Z88.8 Allergy status to other drugs, medicaments and biological substances
CPT/HCPCS: 49083; 85025; 85610; 85730; P9047; 36415; J2001

== ENCOUNTER 2018-07-26 07:18 | Day surgery (SDC) | payer MEDICARE ==
[2018-07-25 10:32] VITALS: BMI 22.8
[2018-07-26] MEDS ORDERED: Albumin 25% 200 ML ONE (08:23)
[2018-07-26] MEDS ORDERED: Sodium Bicarbonate 2.5 MEQ/5 ML VIAL ONE (08:23)
[2018-07-26] MEDS ORDERED: Lidocaine 1% PF 5 ML VIAL ONE (08:23)
[2018-07-26 10:09] VITALS: BP 93/56; TEMP 97.7
--- NOTE | 2018-07-26 11:38 | ULT ---
ULTRASOUND GUIDED PARACENTESIS: CLINICAL INDICATION: Ascites. PROCEDURE: After informed consent had been obtained, the patient was escorted to the ultrasound suite and placed in a supine position. The abdomen was imaged which revealed adequate ascites for the procedure. Th e skin of the abdomen was then prepped and draped in the standard sterile fashion and the skin surfac e, subcutaneous tissues, and peritoneal lining of the abdomen were anesthetized with 1% Lidocaine buf fered with sodium bicarbonate. A right lower quadrant approach was selected. A small skin incision was made at the site of topical anesthesia. Subsequently, under real-time ultrasound guidance a [employer] catheter was advanced through the incision site into the peritoneal cavity. Ascites was present at the catheter hub. The catheter was then secured to vacuum sealed sterile containers, via sterile tub ing and subsequently 7.4 L of clear-yellow ascites was drained from the patient. The catheter was th en removed from the patient. The patient tolerated the procedure well without evidence of complicati on. Postprocedure imaging revealed no complication and interval reduction in volume of ascites. The patient was monitored by a radiology nurse and was stable in condition. IMPRESSION: Technically successful ultrasound guided paracentesis, as above. POS: [facility]
== END 2018-07-26 09:45 | disposition home or self-care (01) ==
LOC: ULT 07:18
PROVIDERS: ATTEND Internal Medicine Gastroenterology
PROC: 0W9G3ZZ Drainage of Peritoneal Cavity, Percutaneous Approach (ICD-10-PCS; principal; 2018-07-26)
DX: R18.8 Other ascites (principal); K74.60 Unspecified cirrhosis of liver; R53.83 Other fatigue; D64.9 Anemia, unspecified; K31.819 Angiodysplasia of stomach and duodenum without bleeding; Z88.0 Allergy status to penicillin
CPT/HCPCS: 49083; P9047; J2001

== ENCOUNTER 2018-08-02 07:06 | Day surgery (SDC) | payer MEDICARE ==
[2018-08-01 10:24] VITALS: BMI 22.8
[2018-08-02] MEDS ORDERED: Albumin 25% 200 ML ONE (07:52)
[2018-08-02] MEDS ORDERED: Sodium Bicarbonate 2.5 MEQ/5 ML VIAL ONE (07:52)
--- NOTE | 2018-08-02 11:31 | ULT ---
ULTRASOUND GUIDED PARACENTESIS: Date: 08/02/18 HISTORY: Ascites. COMPARISON: 07/26/18. FINDINGS: Successful ultrasound guided paracentesis. Total of 8 liters of yellow-colored ascites aspirated. No immediate postprocedure complication. TECHNIQUE: Consent obtained for ultrasound guided paracentesis. Left lower quadrant was deemed appropriate. Skin was prepped and draped in the sterile fashion. 1% lidocaine, buffered with sodium bicarbonate, was u sed for local anesthesia. Under ultrasound guidance, a 5 Divehi 7.0 cm Aspidaeh catheter was advanced int o the peritoneal space. Via vacuum bottles, a total of 8 liters of yellow-colored ascites was aspirat ed. The patient tolerated the procedure well. No immediate or postprocedure complications. IMPRESSION: Successful ultrasound guided paracentesis. POS: [facility]
== END 2018-08-02 09:20 | disposition home or self-care (01) ==
LOC: ULT 07:06
PROVIDERS: ATTEND Internal Medicine Gastroenterology
PROC: 0W9G3ZZ Drainage of Peritoneal Cavity, Percutaneous Approach (ICD-10-PCS; principal; 2018-08-02)
DX: R18.8 Other ascites (principal); K74.60 Unspecified cirrhosis of liver; K31.819 Angiodysplasia of stomach and duodenum without bleeding; R53.83 Other fatigue; D64.9 Anemia, unspecified; Z88.8 Allergy status to other drugs, medicaments and biological substances; Z79.84 Long term (current) use of oral hypoglycemic drugs; Z79.82 Long term (current) use of aspirin; Z79.899 Other long term (current) drug therapy
CPT/HCPCS: 49083; P9047

== ENCOUNTER 2018-08-09 07:20 | Day surgery (SDC) | payer MEDICARE ==
[2018-08-09] MEDS ORDERED: Lidocaine 1% PF 5 ML VIAL ONE (07:55)
[2018-08-09] MEDS ORDERED: Sodium Bicarbonate 2.5 MEQ/5 ML VIAL ONE (07:55)
[2018-08-09] MEDS ORDERED: Albumin 25% 200 ML ONE (07:55)
[2018-08-09 10:15] VITALS: BP 111/58; TEMP 97.7
--- NOTE | 2018-08-09 11:02 | ULT ---
ULTRASOUND GUIDED PARACENTESIS: Comparison: 08-02-18 History: Ascites. FINDINGS: Successful ultrasound guided paracentesis. A total of 8 L of yellow colored ascites is drained. No im mediate or post procedure complication. Technique: Consent obtained to perform a ultrasound guided paracentesis. The left lower quadrant was deemed appr opriate. Skin was prepped and draped in sterile fashion. 1% Lidocaine, buffered with sodium bicarbona te used for local anesthesia. Under sonographic guidance, a 5 Czech 7 cm Cinema Oneeh catheter was advanced into the peroneal space. Via short tubing catheter, a total of 8 L of yellow colored ascites was aspi rated. Patient tolerated the procedure well. No immediate or post procedure complications. IMPRESSION: Successful ultrasound guided paracentesis. POS: [facility]
== END 2018-08-09 09:50 | disposition home or self-care (01) ==
LOC: ULT 07:20
PROVIDERS: ATTEND Internal Medicine Gastroenterology
PROC: 0W9G3ZZ Drainage of Peritoneal Cavity, Percutaneous Approach (ICD-10-PCS; principal; 2018-08-09)
DX: R18.8 Other ascites (principal); K74.60 Unspecified cirrhosis of liver; K31.819 Angiodysplasia of stomach and duodenum without bleeding; R53.83 Other fatigue; D64.9 Anemia, unspecified; Z88.8 Allergy status to other drugs, medicaments and biological substances; Z79.82 Long term (current) use of aspirin; Z79.899 Other long term (current) drug therapy
CPT/HCPCS: 49083; J2001; P9047

== ENCOUNTER 2018-08-16 07:27 | Day surgery (SDC) | payer MEDICARE ==
[2018-08-15 08:40] VITALS: BMI 22.8
[2018-08-16] MEDS ORDERED: Sodium Bicarbonate 2.5 MEQ/5 ML VIAL ONE (07:33)
[2018-08-16] MEDS ORDERED: Albumin 25% 200 ML ONE (07:33)
--- NOTE | 2018-08-16 10:22 | ULT ---
ULTRASOUND GUIDED PARACENTESIS THERAPEUTIC: DATE: 08-16-18 HISTORY: 78-year-old female with abdominal distension due to ascites secondary to cirrhosis. Technique: Signed informed consent obtained. Four quadrant survey of abdomen. Left lower quadrant had the larges t pocket of free fluid, and was selected. Overlying skin prepared and draped in the usual sterile fas hion. 1% buffered Lidocaine applied superficially and deeply. A 5 Yemeni Yueh catheter with stylet ad vanced in tandem with the 25 gauge needle into the pocket of free fluid in the left lower quadrant. S tylet removed. 25 gauge needle removed. Yueh catheter connected to a series of evacuated bottles via plastic tubing. After drainage, catheter removed. The patient tolerated the procedure well. No compli cations. FINDINGS: Prior to the procedure, there is a large volume of free intraperitoneal fluid. A total of 7200 ml of non-hemorrhagic, straw colored fluid was drained. Post procedure single image of left lower quadrant demonstrates a small amount of residual free fluid. IMPRESSION: Successful therapeutic paracentesis with drainage of 7.2 L of ascites fluid. POS: [facility]
[2018-08-16 11:46] VITALS: BP 103/53; TEMP 98
== END 2018-08-16 09:15 | disposition home or self-care (01) ==
LOC: ULT 07:27
PROVIDERS: ATTEND Internal Medicine Gastroenterology
PROC: 0W9G3ZZ Drainage of Peritoneal Cavity, Percutaneous Approach (ICD-10-PCS; principal; 2018-08-16)
DX: R18.8 Other ascites (principal); K74.60 Unspecified cirrhosis of liver; K31.819 Angiodysplasia of stomach and duodenum without bleeding; Z88.8 Allergy status to other drugs, medicaments and biological substances; Z88.6 Allergy status to analgesic agent; Z79.84 Long term (current) use of oral hypoglycemic drugs; Z79.82 Long term (current) use of aspirin; Z79.899 Other long term (current) drug therapy
CPT/HCPCS: 49083; P9047

== ENCOUNTER 2018-08-23 07:36 | Day surgery (SDC) | payer MEDICARE ==
[2018-08-23 07:55] LABS: #Eosinphils 0.1 thou/uL (0.0-0.7); #Lymphocytes 0.7 thou/uL (1.20-3.40); #Monocytes 0.4 thou/uL (0.11-0.59); %Basophils 0.9 % (0.0-1.0); %Eosinophils 1.2 % (0.0-10.0); %Lymphocytes 13.9 % (21.0-51.0); %Monocytes 8.1 % (0.0-10.0); %Neutrophils 75.9 % (42.0-75.0); Hemoglobin 10.4 g/dL (12.0-16.0); Mean Corpuscular HGB CONC 31.2 g/dL (32.0-36.0); Mean Corpuscular Hemoglobin 26.7 pg (27.0-31.0); Mean Corpuscular Volume 85.4 fL (78.0-98.0); Mean Platelet Volume 9.3 fL (7.4-10.4); Platelet Count 195 thou/uL (130-400); RBC Distribution Width 14.3 % (11.5-14.5); Red Blood Cell (RBC) Count 3.89 mill/uL (4.20-5.40); White Blood Cell (WBC) Count 5.2 thou/uL (4.8-10.8)
[2018-08-23 08:05] LABS: INR-International Normal Ratio 1.1; Prothrombin Time 14.4 SEC (12.0-14.7)
[2018-08-23 08:08] LABS: PTT 34.7 SEC (22.9-36.1)
[2018-08-23 08:32] LABS: Anion Gap 13 mmol/L (10-20); BUN (Urea Nitrogen) 35 mg/dL (9.8-20.1); Calc. Creatinine Clearance 0 mL/min (70-130); Calcium 9.1 mg/dL (7.8-10.44); Carbon Dioxide 22 mmol/L (23-31); Chloride 104 mmol/L (98-107); Estimated GFR-MDRD 32; Glucose 168 mg/dL (83-110); Potassium 3.7 mmol/L (3.5-5.1); Sodium 135 mmol/L (136-145)
[2018-08-23] MEDS ORDERED: Sodium Bicarbonate 2.5 MEQ/5 ML VIAL ONE (08:34)
[2018-08-23] MEDS ORDERED: Lidocaine 1% PF 5 ML VIAL ONE (08:34)
[2018-08-23] MEDS ORDERED: Albumin 25% 200 ML ONE (08:34)
[2018-08-23 10:04] VITALS: BP 117/63; TEMP 98.1
--- NOTE | 2018-08-23 11:12 | ULT ---
ULTRASOUND GUIDED PARACENTESIS: HISTORY: Ascites. COMPARISON: Paracentesis from 08/16/2018. TECHNIQUE: The patient was brought to the ultrasound suite. All questions were answered. The patient's right lower quadrant was prepped and draped in a normal sterile fashion. Lidocaine 4 mL was instilled into the superficial and deep soft tissues. A small dermatotomy was mad e. Using a 5 Divehi Yueh needle, the peritoneal space was accessed, and 7 L of straw-colored fluid was a spirated without complication. IMPRESSION: Technically successful ultrasound-guided paracentesis. POS: [facility]
== END 2018-08-23 09:45 | disposition home or self-care (01) ==
LOC: ULT 07:36
PROVIDERS: ATTEND Internal Medicine Gastroenterology
PROC: 0W9G3ZZ Drainage of Peritoneal Cavity, Percutaneous Approach (ICD-10-PCS; principal; 2018-08-23)
DX: R18.8 Other ascites (principal); K74.60 Unspecified cirrhosis of liver; K31.819 Angiodysplasia of stomach and duodenum without bleeding; Z88.6 Allergy status to analgesic agent; Z88.8 Allergy status to other drugs, medicaments and biological substances; Z79.899 Other long term (current) drug therapy
CPT/HCPCS: 49083; 80048; 85025; 85610; 85730; P9047; 36415; J2001

== ENCOUNTER 2018-08-31 07:30 | Day surgery (SDC) | payer MEDICARE ==
[2018-08-26 12:42] VITALS: BMI 24.3
[~2018-08-31 07:30] MED LIST changes: -Albumin 25% 200 ML ONE; -Lidocaine 1% PF 5 ML VIAL ONE; +Prevnar 13-Val Conj/PF 0.5 ML SYRINGE IM ONE; -Sodium Bicarbonate 2.5 MEQ/5 ML VIAL ONE; -Sodium Chloride 0.9% 10 ML ONE
[2018-08-31] MEDS ORDERED: Albumin 25% 200 ML ONE (08:41)
[2018-08-31 11:44] VITALS: BP 102/58; TEMP 97.2
--- NOTE | 2018-08-31 11:48 | ULT ---
ULTRASOUND-GUIDED PARACENTESIS: CLINICAL INDICATION: Ascites. PROCEDURE: After informed consent had been obtained, the patient was escorted to the ultrasound suite and placed in a supine position. The abdomen was imaged which revealed adequate ascites for the procedure. Th e skin of the abdomen was then prepped and draped in the standard sterile fashion and the skin surfac e, subcutaneous tissues, and peritoneal lining of the abdomen were anesthetized with 1% Lidocaine buf fered with sodium bicarbonate. A right lower quadrant approach was selected. A small skin incision was made at the site of topical anesthesia. Subsequently, under real-time ultrasound guidance a SHERPANDIPITY catheter was advanced through the incision site into the peritoneal cavity. Ascites was present at the catheter hub. The catheter was then secured to vacuum sealed sterile containers, via sterile tub ing and subsequently 8 L of clear-yellow ascites was drained from the patient. The catheter was then removed from the patient. The patient tolerated the procedure well without evidence of complication . Postprocedure imaging revealed no complication and interval reduction in volume of ascites. The p atient was monitored by a radiology nurse and was stable in condition. IMPRESSION: Technically successful ultrasound-guided paracentesis, as above. POS: [facility]
== END 2018-08-31 10:30 | disposition home or self-care (01) ==
LOC: ULT 07:30
PROVIDERS: ATTEND Internal Medicine Gastroenterology
PROC: 0W9G3ZZ Drainage of Peritoneal Cavity, Percutaneous Approach (ICD-10-PCS; principal; 2018-08-31)
DX: R18.8 Other ascites (principal); K74.60 Unspecified cirrhosis of liver; Z79.82 Long term (current) use of aspirin; Z79.84 Long term (current) use of oral hypoglycemic drugs; Z79.899 Other long term (current) drug therapy; Z88.6 Allergy status to analgesic agent
CPT/HCPCS: 49083; P9047

== ENCOUNTER 2018-09-07 07:30 | Day surgery (SDC) | payer MEDICARE ==
[2018-09-07] MEDS ORDERED: Albumin 25% 200 ML ONE (08:58)
--- NOTE | 2018-09-07 12:14 | ULT ---
ULTRASOUND GUIDED PARACENTESIS: Date: 09-07-18 History: Cirrhosis and ascites. Technique: Informed consent was obtained. Patient was place on the sonography table in the supine position. Tristian miller sonographic evaluation of the abdomen was performed. An area in the midaxillary line right upper quadrant was marked and the area was then meticulously prepped and draped in the sterile fashion. Ski n and subcutaneous tissues were infiltrated with buffered 1% Lidocaine for local anesthesia. Small skin incision was made. Utilizing concurrent real-time ultrasound guidance a 19 gauge [employer] need le and sheath was advanced into the abdomen. After return of fluid, the catheter was advanced and the needle was removed. Approximately 8 L of cloudy yellow fluid was aspirated. Albumin was administrate d intravenously during the procedure as requested. Dry sterile dressing was placed at the puncture site. Patient tolerated the procedure well and withou t immediate complication. IMPRESSION: Technically successful sonographic paracentesis. POS: [facility]
[2018-09-07 15:11] VITALS: BP 115/58; TEMP 98
== END 2018-09-07 10:15 | disposition home or self-care (01) ==
LOC: ULT 07:30
PROVIDERS: ATTEND Internal Medicine Gastroenterology
PROC: 0W9G3ZZ Drainage of Peritoneal Cavity, Percutaneous Approach (ICD-10-PCS; principal; 2018-09-07)
DX: K74.60 Unspecified cirrhosis of liver (principal); R18.8 Other ascites; E11.9 Type 2 diabetes mellitus without complications; I10 Essential (primary) hypertension; N28.9 Disorder of kidney and ureter, unspecified; L40.50 Arthropathic psoriasis, unspecified; M06.9 Rheumatoid arthritis, unspecified; K21.9 Gastro-esophageal reflux disease without esophagitis; Z85.820 Personal history of malignant melanoma of skin
CPT/HCPCS: 49083; P9047

== ENCOUNTER 2018-09-13 07:26 | Day surgery (SDC) | payer MEDICARE ==
[2018-09-13] MEDS ORDERED: Albumin 25% 200 ML ONE (07:44)
[2018-09-13] MEDS ORDERED: Sodium Bicarbonate 2.5 MEQ/5 ML VIAL ONE (07:44)
[2018-09-13 09:35] VITALS: BP 113/58; TEMP 98.8
[2018-09-13 09:36] VITALS: BMI 29.9
--- NOTE | 2018-09-13 11:19 | ULT ---
ULTRASOUND GUIDED PARACENTESIS: Date: 09-13-18 History: Cirrhosis and ascites. Technique: After informed consent was obtained, the patient was placed on the angiography table in the supine po sition. Limited sonographic evaluation of the abdomen was performed. An area in the mid axillary line right upper quadrant was marked and the area of meticulously prepped and draped in the usual sterile fashion. Skin and subcutaneous tissues were infiltrated with buffered 1% Lidocaine for local anesthesia. Small skin incision was made. Utilizing concurrent real-time ultrasound guidance, a 19 gauge Motion Dispatcheh needle with sheath was advanced i nto the abdomen. After return of fluid, the sheath was advanced and needle was removed. Approximately 8 L of cloudy, yellow colored fluid was aspirated. The patient was administered 50 grams of Albumin during the examination as requested. The introducer sheath was removed and hemostatis was achieved with direct pressure. Follow up imaging demonstrates residual intraperitoneal free fluid within the abdomen. Patient tolerated the procedure well and without immediate complications. Patient was briefly monitor ed in Radiology nursing hold prior to discharge. IMPRESSION: Technically successful sonographically guided paracentesis. POS: [facility]
== END 2018-09-13 09:15 | disposition home or self-care (01) ==
LOC: ULT 07:26
PROVIDERS: ATTEND Internal Medicine Gastroenterology
PROC: 0W9G3ZZ Drainage of Peritoneal Cavity, Percutaneous Approach (ICD-10-PCS; principal; 2018-09-13)
DX: R18.8 Other ascites (principal); K74.60 Unspecified cirrhosis of liver
CPT/HCPCS: 49083; P9047

== ENCOUNTER 2018-09-20 07:30 | Day surgery (SDC) | payer MEDICARE ==
[2018-09-19 14:42] VITALS: BMI 28.3
[2018-09-20] MEDS ORDERED: Albumin 25% 200 ML ONE (08:08)
[2018-09-20] MEDS ORDERED: Sodium Bicarbonate 2.5 MEQ/5 ML VIAL ONE (08:08)
[2018-09-20 09:12] VITALS: BP 105/60; TEMP 98.1
--- NOTE | 2018-09-20 10:11 | ULT ---
SONOGRAPHIC GUIDED PARACENTESIS: History: Recurrent ascites. FINDINGS: After explaining the procedure and answering all questions, sonographic survey shows large amount of free fluid. Sterile technique, buffered local anesthesia, sonographic guidance and a right lateral ap proach were used to carefully advance a 19 gauge Yueh needle and catheter into the free fluid. Cathet er was left to drain a total volume of 8 L cloudy yellow liquid. Moderate amount of free fluid remain s. Catheter was removed. Patient tolerated the procedure well and was dismissed in good condition. IMPRESSION: Technically successful sonographic guided paracentesis. POS: [facility]
== END 2018-09-20 09:45 | disposition home or self-care (01) ==
LOC: ULT 07:30
PROVIDERS: ATTEND Internal Medicine Gastroenterology
PROC: 0W9G3ZZ Drainage of Peritoneal Cavity, Percutaneous Approach (ICD-10-PCS; principal; 2018-09-20)
DX: R18.8 Other ascites (principal); K74.60 Unspecified cirrhosis of liver; Z88.6 Allergy status to analgesic agent; Z79.82 Long term (current) use of aspirin; Z79.84 Long term (current) use of oral hypoglycemic drugs; Z79.899 Other long term (current) drug therapy; Z88.8 Allergy status to other drugs, medicaments and biological substances
CPT/HCPCS: 49083; P9047

== ENCOUNTER 2018-09-27 07:32 | Day surgery (SDC) | payer MEDICARE ==
[2018-09-26 13:00] VITALS: BMI 28.1
[2018-09-27] MEDS ORDERED: Albumin 25% 200 ML ONE (07:50)
[2018-09-27] MEDS ORDERED: Sodium Bicarbonate 2.5 MEQ/5 ML VIAL ONE (07:50)
[2018-09-27 07:53] LABS: #Eosinphils 0.1 thou/uL (0.0-0.7); #Lymphocytes 0.7 thou/uL (1.20-3.40); #Monocytes 0.5 thou/uL (0.11-0.59); #Neutrophils 4.2 thou/uL (1.40-6.50); %Basophils 0.7 % (0.0-1.0); %Eosinophils 1.5 % (0.0-10.0); %Lymphocytes 12.6 % (21.0-51.0); %Monocytes 8.7 % (0.0-10.0); %Neutrophils 76.6 % (42.0-75.0); Mean Corpuscular HGB CONC 31.1 g/dL (32.0-36.0); Mean Corpuscular Hemoglobin 26.5 pg (27.0-31.0); Mean Corpuscular Volume 85.5 fL (78.0-98.0); Platelet Count 205 thou/uL (130-400); RBC Distribution Width 14.1 % (11.5-14.5); Red Blood Cell (RBC) Count 3.78 mill/uL (4.20-5.40); White Blood Cell (WBC) Count 5.5 thou/uL (4.8-10.8)
[2018-09-27 07:58] LABS: INR-International Normal Ratio 1.1; Prothrombin Time 14.5 SEC (12.0-14.7)
[2018-09-27 08:10] LABS: ALT (SGPT) 30 U/L (8-55); AST (SGOT) 39 U/L (5-34); Albumin 3.2 g/dL (3.4-4.8); Alkaline Phosphatase 140 U/L (40-150); Anion Gap 13 mmol/L (10-20); BUN (Urea Nitrogen) 39 mg/dL (9.8-20.1); Bilirubin, Total 0.5 mg/dL (0.2-1.2); Calc. Creatinine Clearance 37 mL/min (70-130); Calcium 8.9 mg/dL (7.8-10.44); Carbon Dioxide 20 mmol/L (23-31); Chloride 106 mmol/L (98-107); Estimated GFR-MDRD 31; Globulin 2.9 g/dL (2.4-3.5); Glucose 153 mg/dL (83-110); Potassium 4.1 mmol/L (3.5-5.1); Protein, Total 6.1 g/dL (6.0-8.3); Sodium 135 mmol/L (136-145)
[2018-09-27 09:52] VITALS: BP 113/55; TEMP 97.9
--- NOTE | 2018-09-27 10:33 | ULT ---
ULTRASOUND GUIDED PARACENTESIS: HISTORY: Ascites. COMPARISON: 09/20/2018 FINDINGS: Successful ultrasound-guided paracentesis. A total of 8 L of yellow-colored ascites was aspirated. No immediate or postprocedure complications. TECHNIQUE: Consent obtained to perform an ultrasound paracentesis. The patient's abdomen was evaluated. The [facility] lower quadrant was deemed appropriate. The skin was prepped and draped in a sterile fashion, and 1% Lidocaine, buffered with sodium bicarbonate, was used for local anesthesia. Under ultrasound jered dance, a 7 cm, 5-Mosotho Yueh catheter was advanced into the peritoneal space. Via multiple vacuum christina ttles, a total of 8 L of yellow-colored ascites was aspirated. No immediate or postprocedure complic ations. IMPRESSION: Successful ultrasound-guided paracentesis. POS: [facility]
== END 2018-09-27 09:20 | disposition home or self-care (01) ==
LOC: ULT 07:32
PROVIDERS: ATTEND Internal Medicine Gastroenterology
PROC: 0W9G3ZZ Drainage of Peritoneal Cavity, Percutaneous Approach (ICD-10-PCS; principal; 2018-09-27)
DX: R18.8 Other ascites (principal); K74.60 Unspecified cirrhosis of liver; K31.819 Angiodysplasia of stomach and duodenum without bleeding; Z88.8 Allergy status to other drugs, medicaments and biological substances; Z88.6 Allergy status to analgesic agent
CPT/HCPCS: 49083; 80053; 85025; 85610; 85730; P9047; 36415

== ENCOUNTER 2018-10-04 07:33 | Day surgery (SDC) | payer MEDICARE ==
[2018-10-04] MEDS ORDERED: Albumin 25% 200 ML ONE (08:04)
[2018-10-04] MEDS ORDERED: Sodium Bicarbonate 2.5 MEQ/5 ML VIAL ONE (08:04)
[2018-10-04] MEDS ORDERED: Lidocaine 1% PF 5 ML VIAL ONE (08:37)
[2018-10-04 10:11] VITALS: BP 102/62; TEMP 98
--- NOTE | 2018-10-04 10:35 | ULT ---
ULTRASOUND GUIDED PARACENTESIS: History: Recurrent ascites. FINDINGS: After informed consent was obtained, the patient was prepped and draped in normal sterile fashion. Lo ivy anesthesia was obtained with 1% Lidocaine mixed with sodium bicarb. Small skin incision was made with a #11 scalpel blade. 6 Paraguayan Yueh catheter was inserted into the right lower quadrant fluid col lection and 8 L of typical ascites was obtained. The patient tolerated the procedure well. There were no immediate complications. IMPRESSION: Ultrasound guided paracentesis of 8 L of fluid. POS: [facility]
== END 2018-10-04 09:30 | disposition home or self-care (01) ==
LOC: ULT 07:33
PROVIDERS: ATTEND Internal Medicine Gastroenterology
PROC: 0W9G3ZZ Drainage of Peritoneal Cavity, Percutaneous Approach (ICD-10-PCS; principal; 2018-10-04)
DX: R18.8 Other ascites (principal); K74.60 Unspecified cirrhosis of liver; Z79.82 Long term (current) use of aspirin; Z79.84 Long term (current) use of oral hypoglycemic drugs; Z79.899 Other long term (current) drug therapy; Z88.6 Allergy status to analgesic agent; Z88.8 Allergy status to other drugs, medicaments and biological substances
CPT/HCPCS: 49083; P9047; J2001

== ENCOUNTER 2018-10-11 07:26 | Day surgery (SDC) | payer MEDICARE ==
[2018-10-10 10:40] VITALS: BMI 27.9
[2018-10-11] MEDS ORDERED: Albumin 25% 200 ML ONE (07:39)
[2018-10-11] MEDS ORDERED: Lidocaine 1% PF 5 ML VIAL ONE (07:39)
[2018-10-11] MEDS ORDERED: Sodium Bicarbonate 2.5 MEQ/5 ML VIAL ONE (07:39)
--- NOTE | 2018-10-11 09:15 | ULT ---
ULTRASOUND GUIDED PARACENTESIS: INDICATION: Recurrent ascites. TECHNIQUE: Informed consent was obtained. The right lower quadrant was prepped and draped in the usual sterile fashion. Buffered 1% Lidocaine was administered to the overlying subcutaneous tissues. Under ultras ound guidance, a 5 Lithuanian InStitchueh catheter was guided down into the right lower quadrant. 8 cc of marley l-appearing peritoneal fluid was removed. The patient tolerated the procedure without difficulty. IMPRESSION: Successful ultrasound-guided paracentesis removal of 8 liters of normal-appearing peritoneal fluid. POS: [facility]
[2018-10-11 12:22] VITALS: BP 116/62; TEMP 98.2
== END 2018-10-11 09:10 | disposition home or self-care (01) ==
LOC: ULT 07:26
PROVIDERS: ATTEND Internal Medicine Gastroenterology
PROC: 0W9G3ZZ Drainage of Peritoneal Cavity, Percutaneous Approach (ICD-10-PCS; principal; 2018-10-11)
DX: R18.8 Other ascites (principal); K74.60 Unspecified cirrhosis of liver; L40.8 Other psoriasis; K42.9 Umbilical hernia without obstruction or gangrene; Z79.82 Long term (current) use of aspirin; Z79.84 Long term (current) use of oral hypoglycemic drugs; Z79.899 Other long term (current) drug therapy; Z88.6 Allergy status to analgesic agent; Z88.8 Allergy status to other drugs, medicaments and biological substances
CPT/HCPCS: 49083; P9047; J2001

== ENCOUNTER 2018-10-18 07:28 | Day surgery (SDC) | payer MEDICARE ==
[2018-10-18] MEDS ORDERED: Sodium Bicarbonate 2.5 MEQ/5 ML VIAL ONE (07:47)
[2018-10-18] MEDS ORDERED: Albumin 25% 200 ML ONE (07:47)
--- NOTE | 2018-10-18 10:16 | ULT ---
ULTRASOUND GUIDED PARACENTESIS: Comparison: 10-11-18 History: Ascites. FINDINGS: Successful ultrasound guided paracentesis. A total of 8 L of yellow colored ascites was aspirated. No immediate or post procedure complication. Technique: Consent was obtained to perform an ultrasound guided paracentesis. Right lower quadrant was deemed ap propriate. Skin was prepped and draped in sterile fashion. 1% Lidocaine, buffered with sodium bicarbo francine used for local anesthesia. Under ultrasound guidance, 5 Pashto Yueh catheter was advanced into t he peritoneal space. Via vacuum bottles, a total of 8 L of yellow colored ascites as aspirated. The p atient tolerated the procedure well. No immediate or post procedure complications. IMPRESSION: Successful ultrasound guided paracentesis. POS: [facility]
[2018-10-18 12:55] VITALS: BP 101/57; TEMP 98
== END 2018-10-18 09:20 | disposition home or self-care (01) ==
LOC: ULT 07:28
PROVIDERS: ATTEND Internal Medicine Gastroenterology
PROC: 0W9G3ZZ Drainage of Peritoneal Cavity, Percutaneous Approach (ICD-10-PCS; principal; 2018-10-18)
DX: R18.8 Other ascites (principal); K74.60 Unspecified cirrhosis of liver; L40.9 Psoriasis, unspecified; Z79.82 Long term (current) use of aspirin; Z79.84 Long term (current) use of oral hypoglycemic drugs; Z79.899 Other long term (current) drug therapy; Z88.8 Allergy status to other drugs, medicaments and biological substances
CPT/HCPCS: 49083; P9047

== ENCOUNTER 2018-10-25 07:22 | Day surgery (SDC) | payer MEDICARE ==
[2018-10-24 09:17] VITALS: BMI 29.9
[2018-10-25] MEDS ORDERED: Sodium Bicarbonate 2.5 MEQ/5 ML VIAL ONE (07:31)
[2018-10-25] MEDS ORDERED: Lidocaine 1% PF 5 ML VIAL ONE (07:31)
[2018-10-25] MEDS ORDERED: Albumin 25% 200 ML ONE (07:33)
[2018-10-25 09:36] VITALS: BP 110/58; TEMP 97.8
--- NOTE | 2018-10-25 10:37 | ULT ---
SONOGRAPHIC GUIDED PARACENTESIS: HISTORY: Recurrent ascites. FINDINGS: After explaining the procedure and obtaining informed consent, sonographic survey shows a large amoun t of free fluid throughout the abdomen. Sterile technique, buffered local anesthesia, sonographic gu idance, and an anterior right lower quadrant approach were used to carefully advance the tip of a 19 gauge Yueh needle and catheter into the free fluid. The catheter was left to drain a total volume of 7.45 L of cloudy yellow liquid. The catheter was removed. Minimal ascites remained. The patient t olerated the procedure well and was dismissed in good condition. IMPRESSION: Technically successful sonographic-guided paracentesis. POS: [facility]
== END 2018-10-25 09:20 | disposition home or self-care (01) ==
LOC: ULT 07:22
PROVIDERS: ATTEND Internal Medicine Gastroenterology
PROC: 0W9G3ZZ Drainage of Peritoneal Cavity, Percutaneous Approach (ICD-10-PCS; principal; 2018-10-25)
DX: R18.8 Other ascites (principal); K74.60 Unspecified cirrhosis of liver; Z88.6 Allergy status to analgesic agent; Z88.8 Allergy status to other drugs, medicaments and biological substances; Z79.84 Long term (current) use of oral hypoglycemic drugs; Z79.2 Long term (current) use of antibiotics; Z79.82 Long term (current) use of aspirin; Z79.899 Other long term (current) drug therapy
CPT/HCPCS: 49083; P9047; J2001

== ENCOUNTER 2018-11-01 07:27 | Day surgery (SDC) | payer MEDICARE ==
[2018-11-01] MEDS ORDERED: Albumin 25% 200 ML ONE (07:50)
[2018-11-01] MEDS ORDERED: Sodium Bicarbonate 2.5 MEQ/5 ML VIAL ONE (07:50)
[2018-11-01 07:58] LABS: #Eosinphils 0.1 thou/uL (0.0-0.7); #Lymphocytes 0.7 thou/uL (1.20-3.40); #Monocytes 0.5 thou/uL (0.11-0.59); #Neutrophils 4.5 thou/uL (1.40-6.50); %Basophils 0.6 % (0.0-1.0); %Eosinophils 2.1 % (0.0-10.0); %Lymphocytes 12.6 % (21.0-51.0); %Monocytes 8.5 % (0.0-10.0); %Neutrophils 76.3 % (42.0-75.0); Hemoglobin 10.4 g/dL (12.0-16.0); Mean Corpuscular Hemoglobin 26.4 pg (27.0-31.0); Mean Corpuscular Volume 84.9 fL (78.0-98.0); Mean Platelet Volume 9.6 fL (7.4-10.4); Platelet Count 199 thou/uL (130-400); RBC Distribution Width 14.9 % (11.5-14.5); Red Blood Cell (RBC) Count 3.93 mill/uL (4.20-5.40); White Blood Cell (WBC) Count 5.8 thou/uL (4.8-10.8)
[2018-11-01 08:03] LABS: PTT 35.3 SEC (22.9-36.1)
[2018-11-01 08:12] LABS: INR-International Normal Ratio 1.1; Prothrombin Time 14.4 SEC (12.0-14.7)
[2018-11-01 08:18] LABS: Anion Gap 12 mmol/L (10-20); BUN (Urea Nitrogen) 37 mg/dL (9.8-20.1); Calc. Creatinine Clearance 0 mL/min (70-130); Calcium 9.2 mg/dL (7.8-10.44); Carbon Dioxide 22 mmol/L (23-31); Chloride 105 mmol/L (98-107); Estimated GFR-MDRD 27; Glucose 162 mg/dL (83-110); Sodium 135 mmol/L (136-145)
--- NOTE | 2018-11-01 10:03 | ULT ---
ULTRASOUND PARACENTESIS WITH IMAGING: PRE-PROCEDURE DIAGNOSIS: Ascites. PROCEDURE: Ultrasound guided paracentesis. PHYSICAL PLANT MANAGER: Laurent Shah M.D. COMPLICATIONS: None. SPECIMENS: Straw-colored fluid 7 L. PROCEDURE IN DETAIL: Prior to the procedure, the risks and benefits of an ultrasound-guided paracentesis were explained to the patient, and she consented fully to the procedure. An ultrasound was used to evaluate the abdom inal cavity. The largest collection was seen in the right lower quadrant of the abdomen. The right lower quadrant of the abdomen was prepped and draped in the usual sterile fashion. Lidocai ne was used to anesthetize the skin and soft tissues, down to the peritoneal cavity. A small skin incision was made, allowing for passage of a [place] catheter and needle. This was placed, using ultrasound guidance, into the collection in the right lower quadrant of the abdomen. The need le was removed, and the catheter tubing was connected to multiple vacutainer bottles. A total of 7 L of fluid was removed. No residual fluid was seen at the completion of the procedure. IMPRESSION: Status post successful ultrasound-guided paracentesis. POS: [facility]
[2018-11-01 10:27] VITALS: BP 114/59; TEMP 97.7
== END 2018-11-01 09:40 | disposition home or self-care (01) ==
LOC: ULT 07:27
PROVIDERS: ATTEND Internal Medicine Gastroenterology
PROC: 0W9G3ZZ Drainage of Peritoneal Cavity, Percutaneous Approach (ICD-10-PCS; principal; 2018-11-01)
DX: K74.60 Unspecified cirrhosis of liver (principal); R18.8 Other ascites; D64.9 Anemia, unspecified; K31.819 Angiodysplasia of stomach and duodenum without bleeding; R53.83 Other fatigue; E11.9 Type 2 diabetes mellitus without complications; I10 Essential (primary) hypertension; C43.9 Malignant melanoma of skin, unspecified; L40.50 Arthropathic psoriasis, unspecified; R51 Headache; K21.9 Gastro-esophageal reflux disease without esophagitis; N28.9 Disorder of kidney and ureter, unspecified; Z79.899 Other long term (current) drug therapy; Z88.6 Allergy status to analgesic agent; Z88.8 Allergy status to other drugs, medicaments and biological substances
CPT/HCPCS: 49083; 80048; 85025; 85610; 85730; P9047

== ENCOUNTER 2018-11-08 07:25 | Day surgery (SDC) | payer MEDICARE ==
[2018-11-07 08:53] VITALS: BMI 29.9
[2018-11-08] MEDS ORDERED: Sodium Bicarbonate 2.5 MEQ/5 ML VIAL ONE (07:31)
[2018-11-08] MEDS ORDERED: Lidocaine 1% PF 5 ML VIAL ONE (07:31)
[2018-11-08] MEDS ORDERED: Albumin 25% 200 ML ONE (07:32)
[2018-11-08 09:28] VITALS: BP 109/58; TEMP 98.1
--- NOTE | 2018-11-08 09:38 | ULT ---
SONOGRAPHIC GUIDED PARACENTESIS: HISTORY: Recurrent ascites. FINDINGS: After explaining the procedure and answering all questions, a sonographic survey shows a large amount of free fluid. Sterile technique, buffered local anesthesia, sonographic guidance, and a right lowe r quadrant approach were used to carefully advance a 19 gauge Yueh needle and catheter into the free fluid. The catheter was left to drain a total volume of 6.9 L of cloudy, yellow liquid. The cathete r was removed. Minimal fluid remained. The patient tolerated the procedure well and was dismissed i n good condition. IMPRESSION: Technically successful sonographic guided paracentesis. POS: [facility]
== END 2018-11-08 09:00 | disposition home or self-care (01) ==
LOC: ULT 07:25
PROVIDERS: ATTEND Internal Medicine Gastroenterology
PROC: 0W9G3ZZ Drainage of Peritoneal Cavity, Percutaneous Approach (ICD-10-PCS; principal; 2018-11-08)
DX: K74.60 Unspecified cirrhosis of liver (principal); R18.8 Other ascites; L40.8 Other psoriasis; E11.9 Type 2 diabetes mellitus without complications; I10 Essential (primary) hypertension; K21.9 Gastro-esophageal reflux disease without esophagitis; Z79.82 Long term (current) use of aspirin; Z79.84 Long term (current) use of oral hypoglycemic drugs; Z79.899 Other long term (current) drug therapy; Z88.6 Allergy status to analgesic agent; Z88.8 Allergy status to other drugs, medicaments and biological substances
CPT/HCPCS: 49083; P9047; J2001

== ENCOUNTER 2018-11-15 07:34 | Day surgery (SDC) | payer MEDICARE ==
[2018-11-15] MEDS ORDERED: Sodium Bicarbonate 2.5 MEQ/5 ML VIAL ONE (07:47)
[2018-11-15] MEDS ORDERED: Albumin 25% 200 ML ONE (07:47)
[2018-11-15] MEDS ORDERED: Sodium Chloride 0.9% 10 ML ONE ×2 (08:12→08:37)
[2018-11-15 10:09] VITALS: BMI 27.1
--- NOTE | 2018-11-15 11:02 | ULT ---
HEPATIC ULTRASOUND: History: Cirrhosis. FINDINGS: Real-time imaging of the liver shows heterogeneous appearance to the liver with slightly nodular surf alfonso contour compatible with cirrhotic change. The liver measures approximately 18 cm in length. The g allbladder has been removed. Common duct is in the 5 mm range. The spleen is slightly enlarged. It measures 13.8 cm. DOPPLER EVALUATION WITH SPECTRAL ANALYSIS: Normal flow patterns shown within the liver. Moderate ascites is noted. IMPRESSION: 1. Heterogeneous liver parenchyma with a nodular surface compatible with sclerotic change. No focal m ass. 2. Post op cholecystectomy change. 3. Some moderate ascites is noted adjacent to the liver. 4. Incidental note is made of some mild increased echogenicity to the right kidney. The right kidney is not obstructed. There is cortical thinning present. POS: [facility]
--- NOTE | 2018-11-15 13:09 | ULT ---
ULTRASOUND GUIDED THERAPEUTIC PARACENTESIS: 11/15/2018 HISTORY: A 78-year-old female with symptomatic ascites. TECHNIQUE: Signed informed consent obtained. Four-quadrant survey of the abdominal cavity. Right lower quadran t selected. Overlying skin prepared and draped in the usual sterile fashion. A 25 gauge needle was used to apply buffered lidocaine. A 5 Divehi Yueh catheter with stylet was advanced into a pocket of free fluid in the right lower quadrant peritoneal cavity. The stylet was removed from the Yueh cath eter. The Yueh catheter was connected to a series of evacuated bottles via plastic tubing. After dr moon, the Yueh catheter was removed. The patient tolerated the procedure well. No complications. FINDINGS: Pre-procedural images demonstrate a large volume of intraperitoneal free fluid. A total of 6200 mL of cloudy-yellow fluid was drained. Post procedure image of the right lower quadrant demonstrates littl e or no residual fluid in that pocket. IMPRESSION: Successful paracentesis with drainage of 6.2 L of ascites fluid. POS: [facility]
== END 2018-11-15 09:55 | disposition home or self-care (01) ==
LOC: ULT 07:34
PROVIDERS: ATTEND Radiology Neuroradiology
PROC: 0W9G3ZX Drainage of Peritoneal Cavity, Percutaneous Approach, Diagnostic (ICD-10-PCS; principal; 2018-11-15)
PROC: BW40ZZZ Ultrasonography of Abdomen (ICD-10-PCS; 2018-11-15)
DX: R18.8 Other ascites (principal); K74.60 Unspecified cirrhosis of liver; M06.9 Rheumatoid arthritis, unspecified; L40.50 Arthropathic psoriasis, unspecified; E11.9 Type 2 diabetes mellitus without complications; E78.00 Pure hypercholesterolemia, unspecified; Z90.49 Acquired absence of other specified parts of digestive tract; Z90.710 Acquired absence of both cervix and uterus; Z85.820 Personal history of malignant melanoma of skin; Z88.8 Allergy status to other drugs, medicaments and biological substances; Z88.6 Allergy status to analgesic agent; Z98.1 Arthrodesis status; Z79.82 Long term (current) use of aspirin; Z79.2 Long term (current) use of antibiotics; Z79.84 Long term (current) use of oral hypoglycemic drugs; Z79.899 Other long term (current) drug therapy
CPT/HCPCS: 49083; 76705; 82105; P9047; 36415

== ENCOUNTER 2018-11-22 07:19 | Day surgery (SDC) | payer MEDICARE ==
[2018-11-22] MEDS ORDERED: Albumin 25% 200 ML ONE (07:44)
[2018-11-22] MEDS ORDERED: Sodium Bicarbonate 2.5 MEQ/5 ML VIAL ONE (07:44)
[2018-11-22] MEDS ORDERED: Lidocaine 1% PF 5 ML VIAL ONE (07:44)
--- NOTE | 2018-11-22 09:43 | ULT ---
ULTRASOUND GUIDED PARACENTESIS: History: Ascites. Comparison: 11-15-18 FINDINGS: Successful ultrasound guided paracentesis. A total of 6 L of yellow colored ascites was removed. No i mmediate or post procedure complication. Technique: Consent was obtained to perform an ultrasound guided paracentesis. Right lower quadrant was deemed ap propriate. Skin was prepped and draped in sterile fashion. 1% Lidocaine buffered with sodium bicarbon ate was used for local anesthesia. Under ultrasound guidance, a 5 Somali 7 cm Whisper Communicationseh catheter was advan jason into the peritoneal space. Via vacuum bottles, a total of 6 L of yellow colored ascites was aspir ated. The patient tolerated the procedure well. No immediate or post procedure complication. IMPRESSION: Successful ultrasound guided paracentesis. POS: [facility]
[2018-11-22 09:47] VITALS: BP 116/63; TEMP 98.6
== END 2018-11-22 09:45 | disposition home or self-care (01) ==
LOC: ULT 07:19
PROVIDERS: ATTEND Radiology Neuroradiology
PROC: 0W9G3ZZ Drainage of Peritoneal Cavity, Percutaneous Approach (ICD-10-PCS; principal; 2018-11-22)
DX: R18.8 Other ascites (principal); K74.60 Unspecified cirrhosis of liver; E11.9 Type 2 diabetes mellitus without complications; K21.9 Gastro-esophageal reflux disease without esophagitis; L40.9 Psoriasis, unspecified; Z79.82 Long term (current) use of aspirin; Z79.84 Long term (current) use of oral hypoglycemic drugs; Z79.899 Other long term (current) drug therapy; Z88.8 Allergy status to other drugs, medicaments and biological substances
CPT/HCPCS: 49083; P9047; J2001

== ENCOUNTER 2018-11-29 07:29 | Day surgery (SDC) | payer MEDICARE ==
[~2018-11-29 07:29] MED LIST changes: +Albumin 25% 200 ML ONE; -Prevnar 13-Val Conj/PF 0.5 ML SYRINGE IM ONE; +Sodium Bicarbonate 2.5 MEQ/5 ML VIAL ONE
[2018-11-29 07:58] LABS: Hemoglobin 9.9 g/dL (12.0-16.0); Mean Corpuscular HGB CONC 32.1 g/dL (32.0-36.0); Mean Corpuscular Hemoglobin 26.6 pg (27.0-31.0); Mean Corpuscular Volume 83.1 fL (78.0-98.0); Mean Platelet Volume 9.5 fL (7.4-10.4); Platelet Count 191 thou/uL (130-400); RBC Distribution Width 15.5 % (11.5-14.5); White Blood Cell (WBC) Count 5.4 thou/uL (4.8-10.8)
[2018-11-29 08:02] LABS: INR-International Normal Ratio 1.2; PTT 34.2 SEC (22.9-36.1)
[2018-11-29 08:11] LABS: Anion Gap 11 mmol/L (10-20); BUN (Urea Nitrogen) 36 mg/dL (9.8-20.1); Calc. Creatinine Clearance 0 mL/min (70-130); Carbon Dioxide 22 mmol/L (23-31); Chloride 108 mmol/L (98-107); Estimated GFR-MDRD 30; Glucose 145 mg/dL (83-110); Potassium 4.1 mmol/L (3.5-5.1); Sodium 137 mmol/L (136-145)
--- NOTE | 2018-11-29 09:45 | ULT ---
Ultrasound-guided paracentesis: 11/29/2018 HISTORY: Symptomatic ascites FINDINGS: Informed consent obtained prior to the procedure. Preprocedural imaging demonstrated signif icant ascites throughout the abdomen and pelvis. Right lower quadrant prepped and draped in normal sterile fashion and anesthetized with 1% buffered l idocaine. With direct sonographic guidance, 5 Mauritanian Yueh catheter is advanced into the ascites and removal of the stylet yielded yellow fluid. 8 L were removed. The patient tolerated the procedure well. No postp rocedural complications. IMPRESSION: Successful ultrasound-guided paracentesis yielding 8 L of yellow fluid.
[2018-11-29 10:28] VITALS: BP 112/68; TEMP 98
[2018-11-29 13:25] LABS: BF Color Yellow; Clarity Hazy (Clear); Tube # EDTA
[2018-11-29 13:26] LABS: BF RBC Count - Manual 880 /cumm; BF WBC/Nonhematics Ct. - Manua 75 /cumm
[2018-11-29 13:27] LABS: BF Segmented Neutrophils 6 %; Cell Count Non Hematic 73 %; Lymphocytes 21 %
[2018-11-30 14:30] LABS: Body Fluid Source Ascites Body Fluid
== END 2018-11-29 09:55 | disposition home or self-care (01) ==
LOC: ULT 07:29
PROVIDERS: ATTEND Internal Medicine Gastroenterology
PROC: 0W9G3ZZ Drainage of Peritoneal Cavity, Percutaneous Approach (ICD-10-PCS; principal; 2018-11-29)
DX: K74.60 Unspecified cirrhosis of liver (principal); R18.8 Other ascites; E11.9 Type 2 diabetes mellitus without complications; L40.9 Psoriasis, unspecified; I10 Essential (primary) hypertension; Z88.8 Allergy status to other drugs, medicaments and biological substances; Z79.82 Long term (current) use of aspirin; Z79.84 Long term (current) use of oral hypoglycemic drugs; Z79.899 Other long term (current) drug therapy
CPT/HCPCS: 49083; 80048; 85027; 85610; 85730; 87070; 87205; 89051; P9047; 36415; 85060

== ENCOUNTER 2018-12-06 07:30 | Day surgery (SDC) | payer MEDICARE ==
[2018-12-05 11:36] VITALS: BMI 27.3
[2018-12-06] MEDS ORDERED: Albumin 25% 200 ML ONE (07:37)
[2018-12-06] MEDS ORDERED: Lidocaine 1% PF 5 ML VIAL ONE (07:37)
[2018-12-06] MEDS ORDERED: Sodium Bicarbonate 2.5 MEQ/5 ML VIAL ONE (07:37)
--- NOTE | 2018-12-06 09:28 | ULT ---
FExam: Ultrasound guided paracentesis HISTORY: Ascites COMPARISON: 11/29/2018 FINDINGS: Successful ultrasound-guided paracentesis. Total of 7100 mL of yellow-colored ascites was a spirated. TECHNIQUE: Consent obtained reformatory ultrasound-guided paracentesis. Right lower quadrant was deem ed appropriate. Skin was prepped and draped in a sterile fashion. 1% lidocaine, buffered with sodium bicarbonate was used for local anesthesia. Under ultrasound guidance, a 5 Luxembourgish 7 cm InVisioneh catheter i s advanced in the peritoneal space. A total of 7100 mL of yellow-colored ascites was aspirated. No im mediate or postprocedural complications IMPRESSION: Successful ultrasound-guided paracentesis.
[2018-12-06 09:39] VITALS: BP 114/57; TEMP 97.8
== END 2018-12-06 09:25 | disposition home or self-care (01) ==
LOC: ULT 07:30
PROVIDERS: ATTEND Internal Medicine Gastroenterology
PROC: 0W9G3ZZ Drainage of Peritoneal Cavity, Percutaneous Approach (ICD-10-PCS; principal; 2018-12-06)
DX: K74.60 Unspecified cirrhosis of liver (principal); R18.8 Other ascites; E11.9 Type 2 diabetes mellitus without complications; K21.9 Gastro-esophageal reflux disease without esophagitis; L40.9 Psoriasis, unspecified; Z79.82 Long term (current) use of aspirin; Z79.84 Long term (current) use of oral hypoglycemic drugs; Z79.899 Other long term (current) drug therapy; Z88.8 Allergy status to other drugs, medicaments and biological substances; Z88.6 Allergy status to analgesic agent
CPT/HCPCS: 49083; P9047; J2001

== ENCOUNTER 2018-12-13 07:24 | Day surgery (SDC) | payer MEDICARE ==
[2018-12-13] MEDS ORDERED: Sodium Bicarbonate 2.5 MEQ/5 ML VIAL ONE (07:57)
[2018-12-13] MEDS ORDERED: Albumin 25% 200 ML ONE (07:57)
[2018-12-13 09:41] VITALS: BP 105/63; TEMP 98.6
--- NOTE | 2018-12-13 11:38 | ULT ---
Ultrasound-guided paracentesis: HISTORY: Symptomatic ascites FINDINGS: Informed consent obtained prior to the procedure. Preprocedural imaging demonstrated signif icant ascites throughout the abdomen and pelvis. Right lower quadrant prepped and draped in normal sterile fashion and anesthetized with 1% buffered l idocaine. With direct sonographic guidance, 5 Armenian Yueh catheter is advanced into the ascites and removal of the stylet yielded yellow fluid. 7.65 L were removed. The patient tolerated the procedure well. No po stprocedural complications. IMPRESSION: Successful ultrasound-guided paracentesis yielding 7.65 L of yellow ascites.
== END 2018-12-13 09:35 | disposition home or self-care (01) ==
LOC: ULT 07:24
PROVIDERS: ATTEND Internal Medicine Gastroenterology
PROC: 0W9G3ZX Drainage of Peritoneal Cavity, Percutaneous Approach, Diagnostic (ICD-10-PCS; principal; 2018-12-13)
DX: K74.60 Unspecified cirrhosis of liver (principal); R18.8 Other ascites; K21.9 Gastro-esophageal reflux disease without esophagitis; E11.9 Type 2 diabetes mellitus without complications; I10 Essential (primary) hypertension; L40.50 Arthropathic psoriasis, unspecified; Z79.82 Long term (current) use of aspirin; Z79.84 Long term (current) use of oral hypoglycemic drugs; Z79.899 Other long term (current) drug therapy; Z88.8 Allergy status to other drugs, medicaments and biological substances
CPT/HCPCS: 49083; P9047

== ENCOUNTER 2018-12-20 07:27 | Day surgery (SDC) | payer MEDICARE ==
[2018-12-20] MEDS ORDERED: Lidocaine 1% PF 5 ML VIAL ONE (07:32)
[2018-12-20] MEDS ORDERED: Albumin 25% 200 ML ONE (07:32)
[2018-12-20] MEDS ORDERED: Sodium Bicarbonate 2.5 MEQ/5 ML VIAL ONE (07:32)
[2018-12-20 10:08] VITALS: BP 120/61; TEMP 97.6
--- NOTE | 2018-12-20 14:05 | ULT ---
Sonographic guided paracentesis HISTORY: Recurrent ascites. FINDINGS: After explaining the procedure and answering all questions, sonographic survey shows large amount of free fluid. The largest pocket is in the left lower quadrant. Sterile technique, buffered local anesthesia, sonographic guidance, and a left anterolateral approach were used carefully advance a 19-gauge Yueh needle and catheter into the free fluid. Catheter was left to drain a total volume of 7.4 L cloudy yellow liquid. Very small amount of fluid remained. Cath eter was removed. Patient tolerated the procedure well and was eventually dismissed in good condition. IMPRESSION: Technically successful sonographic guided paracentesis.
== END 2018-12-20 09:50 | disposition home or self-care (01) ==
LOC: ULT 07:27
PROVIDERS: ATTEND Internal Medicine Gastroenterology
PROC: 0W9G3ZZ Drainage of Peritoneal Cavity, Percutaneous Approach (ICD-10-PCS; principal; 2018-12-20)
DX: K74.60 Unspecified cirrhosis of liver (principal); R18.8 Other ascites; E11.9 Type 2 diabetes mellitus without complications; L40.50 Arthropathic psoriasis, unspecified; Z88.6 Allergy status to analgesic agent; Z88.8 Allergy status to other drugs, medicaments and biological substances; Z79.82 Long term (current) use of aspirin; Z79.899 Other long term (current) drug therapy; Z79.84 Long term (current) use of oral hypoglycemic drugs
CPT/HCPCS: 49083; P9047; J2001

== ENCOUNTER 2018-12-27 07:27 | Day surgery (SDC) | payer MEDICARE ==
[2018-12-27] MEDS ORDERED: Albumin 25% 200 ML ONE (08:02)
[2018-12-27] MEDS ORDERED: Sodium Bicarbonate 2.5 MEQ/5 ML VIAL ONE (08:02)
[2018-12-27 08:11] LABS: #Eosinphils 0.1 thou/uL (0.0-0.7); #Lymphocytes 0.8 thou/uL (1.20-3.40); #Monocytes 0.4 thou/uL (0.11-0.59); #Neutrophils 4.3 thou/uL (1.40-6.50); %Basophils 0.6 % (0.0-1.0); %Eosinophils 1.2 % (0.0-10.0); %Lymphocytes 13.9 % (21.0-51.0); %Monocytes 7.8 % (0.0-10.0); %Neutrophils 76.5 % (42.0-75.0); Hemoglobin 9.9 g/dL (12.0-16.0); Mean Corpuscular HGB CONC 31.5 g/dL (32.0-36.0); Mean Corpuscular Hemoglobin 25.9 pg (27.0-31.0); Mean Corpuscular Volume 82.3 fL (78.0-98.0); Mean Platelet Volume 9.4 fL (7.4-10.4); Platelet Count 202 thou/uL (130-400); RBC Distribution Width 15.7 % (11.5-14.5); White Blood Cell (WBC) Count 5.7 thou/uL (4.8-10.8)
[2018-12-27 08:16] LABS: INR-International Normal Ratio 1.1; PTT 33.4 SEC (22.9-36.1); Prothrombin Time 14.1 SEC (12.0-14.7)
[2018-12-27 08:17] LABS: Anion Gap 15 mmol/L (10-20); BUN (Urea Nitrogen) 40 mg/dL (9.8-20.1); Calc. Creatinine Clearance 0 mL/min (70-130); Calcium 9.2 mg/dL (7.8-10.44); Carbon Dioxide 20 mmol/L (23-31); Chloride 107 mmol/L (98-107); Estimated GFR-MDRD 31; Glucose 175 mg/dL (83-110); Potassium 3.9 mmol/L (3.5-5.1); Sodium 138 mmol/L (136-145)
--- NOTE | 2018-12-27 10:52 | ULT ---
Ultrasound-guided paracentesis: HISTORY: Symptomatic ascites FINDINGS: Informed consent obtained prior to the procedure. Preprocedural imaging demonstrated signif icant ascites throughout the abdomen and pelvis. Right lower quadrant prepped and draped in normal sterile fashion and anesthetized with 1% buffered l idocaine. With direct sonographic guidance, 5 Maori Yueh catheter is advanced into the ascites and removal of the stylet yielded yellow fluid. 6.9 L were removed. The patient tolerated the procedure well. No postprocedural complications. IMPRESSION: Successful ultrasound-guided paracentesis yielding 6.9 L of yellow ascites.
[2018-12-27 12:52] VITALS: BP 104/56; TEMP 98.1
== END 2018-12-27 09:55 | disposition home or self-care (01) ==
LOC: ULT 07:27
PROVIDERS: ATTEND Internal Medicine Gastroenterology
PROC: 0W9G3ZZ Drainage of Peritoneal Cavity, Percutaneous Approach (ICD-10-PCS; principal; 2018-12-27)
PROC: BW40ZZZ Ultrasonography of Abdomen (ICD-10-PCS; 2018-12-27)
DX: R18.8 Other ascites (principal); K74.60 Unspecified cirrhosis of liver; K29.70 Gastritis, unspecified, without bleeding; I12.9 Hypertensive chronic kidney disease with stage 1 through stage 4 chronic kidney disease, or unspecified chronic kidney disease; E11.22 Type 2 diabetes mellitus with diabetic chronic kidney disease; N18.9 Chronic kidney disease, unspecified; K21.9 Gastro-esophageal reflux disease without esophagitis; D64.9 Anemia, unspecified; R51 Headache; Z88.8 Allergy status to other drugs, medicaments and biological substances
CPT/HCPCS: 49083; 80048; 85025; 85610; 85730; P9047; 36415

== ENCOUNTER 2019-01-03 07:23 | Day surgery (SDC) | payer MEDICARE ==
[2019-01-02 13:55] VITALS: BMI 27.3
[2019-01-03] MEDS ORDERED: Lidocaine 1% PF 5 ML VIAL ONE (07:32)
[2019-01-03] MEDS ORDERED: Albumin 25% 200 ML ONE (07:32)
[2019-01-03] MEDS ORDERED: Sodium Bicarbonate 2.5 MEQ/5 ML VIAL ONE (07:32)
--- NOTE | 2019-01-03 09:15 | ULT ---
US Paracentesis with Imaging History: [Ascites] Comparison: Paracentesis December 27, 2018 Findings: Patient was brought to the ultrasound suite. All questions were answered. Informed consent was obtained. Timeout performed. Patient's left lower quadrant was prepped and draped in normal sterile fashion. 5 mL of lidocaine was instilled into the superficial and deep soft tissues. After adequate anesthesia, small dermotome was made. Using a 5 Telugu Yueh needle the peritoneal spac e was accessed. 7.6 L of straw-colored fluid was removed. Patient tolerated the procedure well without complication. Impression: Technically successful ultrasound-guided paracentesis.
[2019-01-03 09:30] VITALS: BP 108/60; TEMP 97.5
== END 2019-01-03 09:05 | disposition home or self-care (01) ==
LOC: ULT 07:23
PROVIDERS: ATTEND Internal Medicine Gastroenterology
PROC: 0W9G3ZZ Drainage of Peritoneal Cavity, Percutaneous Approach (ICD-10-PCS; principal; 2019-01-03)
DX: K74.60 Unspecified cirrhosis of liver (principal); R18.8 Other ascites; E11.9 Type 2 diabetes mellitus without complications; I10 Essential (primary) hypertension; K21.9 Gastro-esophageal reflux disease without esophagitis; L40.9 Psoriasis, unspecified; Z79.82 Long term (current) use of aspirin; Z79.84 Long term (current) use of oral hypoglycemic drugs; Z79.899 Other long term (current) drug therapy; Z88.6 Allergy status to analgesic agent; Z88.8 Allergy status to other drugs, medicaments and biological substances
CPT/HCPCS: 49083; P9047; J2001

== ENCOUNTER 2019-01-10 07:20 | Day surgery (SDC) | payer MEDICARE ==
[2019-01-10] MEDS ORDERED: Albumin 25% 200 ML ONE (07:42)
[2019-01-10] MEDS ORDERED: Sodium Bicarbonate 2.5 MEQ/5 ML VIAL ONE (07:42)
[2019-01-10] MEDS ORDERED: Sodium Chloride 0.9% 20 ML ONE (09:16)
--- NOTE | 2019-01-10 10:05 | ULT ---
Sonographic guided paracentesis HISTORY: Recurrent ascites. FINDINGS: After explaining the procedure and answering all questions, sonographic survey shows large amount of free fluid throughout the abdomen.. Sterile technique, buffered local anesthesia, sonographic guidance, and a left lower quadrant approach were used to carefully advance the tip of a 19-gauge Yueh needle and catheter into the free fluid. Catheter was left to drain a total volume of 6.8 L of slightly cloudy yellow liquid. Catheter was removed. Minimal fluid remains. Patient tolerate d the procedure well and was dismissed in good condition. IMPRESSION: Technically successful sonographic guided paracentesis.
[2019-01-10 10:37] VITALS: BP 117/60; TEMP 98
== END 2019-01-10 10:05 | disposition home or self-care (01) ==
LOC: ULT 07:20
PROVIDERS: ATTEND Internal Medicine Gastroenterology
PROC: 0W9G3ZZ Drainage of Peritoneal Cavity, Percutaneous Approach (ICD-10-PCS; principal; 2019-01-10)
DX: K74.60 Unspecified cirrhosis of liver (principal); R18.8 Other ascites; E11.9 Type 2 diabetes mellitus without complications; L40.50 Arthropathic psoriasis, unspecified; Z79.82 Long term (current) use of aspirin; Z79.84 Long term (current) use of oral hypoglycemic drugs; Z79.899 Other long term (current) drug therapy; Z88.6 Allergy status to analgesic agent; Z88.8 Allergy status to other drugs, medicaments and biological substances
CPT/HCPCS: 49083; P9047

== ENCOUNTER 2019-01-17 07:21 | Day surgery (SDC) | payer MEDICARE ==
[2019-01-16 11:06] VITALS: BMI 29.9
[2019-01-17] MEDS ORDERED: Albumin 25% 200 ML ONE (07:30)
[2019-01-17] MEDS ORDERED: Lidocaine 1% PF 5 ML VIAL ONE (07:30)
[2019-01-17] MEDS ORDERED: Sodium Bicarbonate 2.5 MEQ/5 ML VIAL ONE (07:30)
[2019-01-17 09:58] VITALS: BP 112/43; TEMP 98.2
--- NOTE | 2019-01-17 10:18 | ULT ---
ULTRASOUND-GUIDED PARACENTESIS THERAPEUTIC: DATE: 01/17/2019 HISTORY: 70-year-old female with abdominal distention due to ascites. TECHNIQUE: Signed informed consent obtained. A four-quadrant survey of abdomen performed. Site selected for puncture: Overlying skin prepared and draped in usual sterile fashion. 25-gauge needle used to apply buffered lidocaine superficially and deeply. 5 Belarusian Yueh catheter with stylette advanced into the pocket of free intraperitoneal fluid. After drainage, the Yueh catheter was removed. Patient tolerated the procedure well. No complications. FINDINGS: Volume of ascites prior to procedure:moderate. Volume of ascites fluid in the drainage pocket after drainage:small . Volume of ascites fluid drained:5900 mL Appearance of ascites fluid: IMPRESSION: Successful therapeutic paracentesis, with drainage of 5.9 L of ascites fluid.
== END 2019-01-17 09:15 | disposition home or self-care (01) ==
LOC: ULT 07:21
PROVIDERS: ATTEND Internal Medicine Gastroenterology
PROC: 0W9G3ZZ Drainage of Peritoneal Cavity, Percutaneous Approach (ICD-10-PCS; principal; 2019-01-17)
DX: K74.60 Unspecified cirrhosis of liver (principal); R18.8 Other ascites; E11.9 Type 2 diabetes mellitus without complications; I10 Essential (primary) hypertension; L40.50 Arthropathic psoriasis, unspecified; K21.9 Gastro-esophageal reflux disease without esophagitis; Z79.84 Long term (current) use of oral hypoglycemic drugs; Z79.899 Other long term (current) drug therapy; Z88.6 Allergy status to analgesic agent; Z88.8 Allergy status to other drugs, medicaments and biological substances
CPT/HCPCS: 49083; P9047; J2001

== ENCOUNTER 2019-01-24 07:26 | Day surgery (SDC) | payer MEDICARE ==
[2019-01-24 08:05] LABS: #Eosinphils 0.1 thou/uL (0.0-0.7); #Lymphocytes 0.8 thou/uL (1.20-3.40); #Monocytes 0.5 thou/uL (0.11-0.59); #Neutrophils 4.6 thou/uL (1.40-6.50); %Basophils 0.5 % (0.0-1.0); %Eosinophils 1.7 % (0.0-10.0); %Lymphocytes 13.4 % (21.0-51.0); %Monocytes 7.5 % (0.0-10.0); %Neutrophils 76.9 % (42.0-75.0); Hemoglobin 9.7 g/dL (12.0-16.0); Mean Corpuscular Hemoglobin 26.4 pg (27.0-31.0); Mean Corpuscular Volume 82.5 fL (78.0-98.0); Mean Platelet Volume 9.7 fL (7.4-10.4); Platelet Count 198 thou/uL (130-400); Red Blood Cell (RBC) Count 3.67 mill/uL (4.20-5.40)
[2019-01-24] MEDS ORDERED: Sodium Bicarbonate 2.5 MEQ/5 ML VIAL ONE (08:09)
[2019-01-24] MEDS ORDERED: Albumin 25% 200 ML ONE (08:09)
[2019-01-24 08:14] LABS: INR-International Normal Ratio 1.2; PTT 34.7 SEC (22.9-36.1); Prothrombin Time 14.8 SEC (12.0-14.7)
[2019-01-24 08:38] LABS: Anion Gap 13 mmol/L (10-20); BUN (Urea Nitrogen) 34 mg/dL (9.8-20.1); Calc. Creatinine Clearance 0 mL/min (70-130); Calcium 9.2 mg/dL (7.8-10.44); Carbon Dioxide 21 mmol/L (23-31); Chloride 106 mmol/L (98-107); Estimated GFR-MDRD 31; Glucose 169 mg/dL (83-110); Potassium 3.9 mmol/L (3.5-5.1); Sodium 136 mmol/L (136-145)
[2019-01-24 10:23] VITALS: BP 102/57; TEMP 98
--- NOTE | 2019-01-24 11:03 | ULT ---
Sonographic guided paracentesis HISTORY: Recurrent ascites. FINDINGS: After explaining the procedure and answering all questions, sonographic survey shows large amount of free fluid. Sterile technique, buffered local anesthesia, sonographic guidance, and a right lower quadrant approach were used to carefully advance a 19-gauge Yueh needle and catheter into the free fluid. Catheter was left to drain a total volume of 7.2 L cloudy yellow liquid. Minimal fluid remains. Catheter was withdrawn. Patient tolerated the procedure well and was dismissed in good condition. IMPRESSION: Technically successful sonographic guided paracentesis.
== END 2019-01-24 09:50 | disposition home or self-care (01) ==
LOC: ULT 07:26
PROVIDERS: ATTEND Internal Medicine Gastroenterology
DX: K74.60 Unspecified cirrhosis of liver (principal); R18.8 Other ascites; L40.9 Psoriasis, unspecified; I10 Essential (primary) hypertension; E11.9 Type 2 diabetes mellitus without complications; E78.00 Pure hypercholesterolemia, unspecified; D64.9 Anemia, unspecified; M06.9 Rheumatoid arthritis, unspecified; C80.1 Malignant (primary) neoplasm, unspecified; N28.9 Disorder of kidney and ureter, unspecified; K29.70 Gastritis, unspecified, without bleeding; Z79.82 Long term (current) use of aspirin; Z79.84 Long term (current) use of oral hypoglycemic drugs; Z79.899 Other long term (current) drug therapy; Z88.8 Allergy status to other drugs, medicaments and biological substances
CPT/HCPCS: 49083; 80048; 85025; 85610; 85730; P9047; 36415

== ENCOUNTER 2019-01-31 07:35 | Day surgery (SDC) | payer MEDICARE ==
[2019-01-27 13:53] VITALS: BMI 24.1
[2019-01-31] MEDS ORDERED: Sodium Bicarbonate 2.5 MEQ/5 ML VIAL ONE (07:50)
[2019-01-31] MEDS ORDERED: Albumin 25% 200 ML ONE (07:50)
--- NOTE | 2019-01-31 09:49 | ULT ---
Ultrasound-guided paracentesis: 01/31/2019 HISTORY: Symptomatic ascites FINDINGS: Informed consent obtained prior to the procedure. Preprocedural imaging demonstrated signif icant ascites throughout the abdomen and pelvis. Right lower quadrant prepped and draped in normal sterile fashion and anesthetized with 1% buffered l idocaine. With direct sonographic guidance, 5 Fijian Yueh catheter is advanced into the ascites and removal of the stylet yielded yellow fluid. 7.7 L were removed. The patient tolerated the procedure well. No postprocedural complications. IMPRESSION: Successful ultrasound-guided paracentesis yielding 7.7 L of yellow fluid.
[2019-01-31 09:54] VITALS: BP 131/72; TEMP 98
== END 2019-01-31 09:25 | disposition home or self-care (01) ==
LOC: ULT 07:35
PROVIDERS: ATTEND Internal Medicine Gastroenterology
PROC: 0W9G3ZZ Drainage of Peritoneal Cavity, Percutaneous Approach (ICD-10-PCS; principal; 2019-01-31)
DX: K74.60 Unspecified cirrhosis of liver (principal); R18.8 Other ascites; E11.9 Type 2 diabetes mellitus without complications; I10 Essential (primary) hypertension; K21.9 Gastro-esophageal reflux disease without esophagitis; L40.50 Arthropathic psoriasis, unspecified; Z79.84 Long term (current) use of oral hypoglycemic drugs; Z79.899 Other long term (current) drug therapy; Z88.8 Allergy status to other drugs, medicaments and biological substances; Z98.1 Arthrodesis status
CPT/HCPCS: 49083; P9047

== ENCOUNTER 2019-02-07 07:21 | Day surgery (SDC) | payer MEDICARE ==
[2019-02-06 12:50] VITALS: BMI 27.1
[2019-02-07] MEDS ORDERED: Sodium Bicarbonate 2.5 MEQ/5 ML VIAL ONE (07:41)
[2019-02-07] MEDS ORDERED: Albumin 25% 200 ML ONE (07:42)
[2019-02-07] MEDS ORDERED: Sodium Chloride 0.9% 10 ML ONE (08:05)
[2019-02-07] MEDS ORDERED: Sodium Chloride 0.9% 20 ML ONE (08:55)
--- NOTE | 2019-02-07 09:49 | ULT ---
Exam: Ultrasound guided paracentesis HISTORY: Ascites COMPARISON: 01/31/2018 FINDINGS: Successful ultrasound-guided paracentesis. Total of 6.6 L of yellow color ascites was aspir ated. TECHNIQUE: Consent obtained reformatory ultrasound-guided paracentesis. Right lower quadrant was deem ed appropriate. Skin was prepped and draped in a sterile fashion. 1% lidocaine, buffered with sodium bicarbonate was used for local anesthesia. Under ultrasound guidance, a 5 Mauritanian 7 cm Yueh cat heter is advanced in the peritoneal space. A total of 6.6 L of yellow color ascites was aspirated. No immediate or postprocedural complications IMPRESSION: Successful ultrasound-guided paracentesis.
== END 2019-02-07 09:25 | disposition home or self-care (01) ==
LOC: ULT 07:21
PROVIDERS: ATTEND Internal Medicine Gastroenterology
PROC: 0W9G3ZZ Drainage of Peritoneal Cavity, Percutaneous Approach (ICD-10-PCS; principal; 2019-02-07)
DX: K74.60 Unspecified cirrhosis of liver (principal); R18.8 Other ascites; E11.9 Type 2 diabetes mellitus without complications; M19.90 Unspecified osteoarthritis, unspecified site; L40.50 Arthropathic psoriasis, unspecified; K21.9 Gastro-esophageal reflux disease without esophagitis; E78.00 Pure hypercholesterolemia, unspecified; I10 Essential (primary) hypertension; D50.0 Iron deficiency anemia secondary to blood loss (chronic); Z86.010 Personal history of colon polyps; Z88.6 Allergy status to analgesic agent; Z88.8 Allergy status to other drugs, medicaments and biological substances; Z79.84 Long term (current) use of oral hypoglycemic drugs; Z79.2 Long term (current) use of antibiotics; Z79.899 Other long term (current) drug therapy
CPT/HCPCS: 49083; P9047

== ENCOUNTER 2019-02-14 07:26 | Day surgery (SDC) | payer MEDICARE ==
[2019-02-14] MEDS ORDERED: Albumin 25% 200 ML ONE (08:04)
[2019-02-14] MEDS ORDERED: Sodium Bicarbonate 2.5 MEQ/5 ML VIAL ONE (08:04)
--- NOTE | 2019-02-14 09:04 | ULT ---
Exam: Ultrasound guided paracentesis HISTORY: Ascites COMPARISON: 02/07/2019 FINDINGS: Successful ultrasound-guided paracentesis. Total of 7 L of yellow color ascites was aspirat ed. TECHNIQUE: Consent obtained reformatory ultrasound-guided paracentesis. Right lower quadrant was deem ed appropriate. Skin was prepped and draped in a sterile fashion. 1% lidocaine, buffered with sodium bicarbonate was used for local anesthesia. Under ultrasound guidance, a 5 Turkmen 7 cm Yueh cat heter is advanced in the peritoneal space. A total of 7 L of yellow color ascites was aspirated. No immediate or postprocedural complications IMPRESSION: Successful ultrasound-guided paracentesis.
[2019-02-14 10:18] VITALS: BP 118/61; TEMP 98.1
== END 2019-02-14 09:15 | disposition home or self-care (01) ==
LOC: ULT 07:26
PROVIDERS: ATTEND Internal Medicine Gastroenterology
PROC: 0W9G3ZZ Drainage of Peritoneal Cavity, Percutaneous Approach (ICD-10-PCS; principal; 2019-02-14)
DX: K74.60 Unspecified cirrhosis of liver (principal); R18.8 Other ascites; L40.50 Arthropathic psoriasis, unspecified; E11.9 Type 2 diabetes mellitus without complications; I10 Essential (primary) hypertension; K21.9 Gastro-esophageal reflux disease without esophagitis; Z79.84 Long term (current) use of oral hypoglycemic drugs; Z79.899 Other long term (current) drug therapy; Z88.8 Allergy status to other drugs, medicaments and biological substances
CPT/HCPCS: 49083; P9047

== ENCOUNTER 2019-02-21 07:21 | Day surgery (SDC) | payer MEDICARE ==
[~2019-02-21 07:21] MED LIST changes: -Sodium Bicarbonate 2.5 MEQ/5 ML VIAL ONE
[2019-02-21] MEDS ORDERED: Sodium Bicarbonate 2.5 MEQ/5 ML VIAL ONE (07:42)
--- NOTE | 2019-02-21 09:33 | ULT ---
Exam: Ultrasound guided paracentesis HISTORY: Ascites COMPARISON: 02/07/2019 FINDINGS: Successful ultrasound-guided paracentesis. Total of 6500 mL of cloudy yellow ascites was as pirated. TECHNIQUE: Consent obtained reformatory ultrasound-guided paracentesis. Right lower quadrant was deem ed appropriate. Skin was prepped and draped in a sterile fashion. 1% lidocaine, buffered with sodium bicarbonate was used for local anesthesia. Under ultrasound guidance, a 5 Moldovan 7 cm Yueh cat heter is advanced in the peritoneal space. A total of 6500 mL of cloudy yellow ascites was aspirated. No immediate or postprocedural complications IMPRESSION: Successful ultrasound-guided paracentesis.
[2019-02-21 10:29] VITALS: BP 105/57; TEMP 98
== END 2019-02-21 09:45 | disposition home or self-care (01) ==
LOC: ULT 07:21
PROVIDERS: ATTEND Internal Medicine Gastroenterology
DX: K74.60 Unspecified cirrhosis of liver (principal); R18.8 Other ascites; I10 Essential (primary) hypertension; E11.9 Type 2 diabetes mellitus without complications; C80.1 Malignant (primary) neoplasm, unspecified; D64.9 Anemia, unspecified; E78.00 Pure hypercholesterolemia, unspecified; K29.70 Gastritis, unspecified, without bleeding; K21.9 Gastro-esophageal reflux disease without esophagitis; L40.50 Arthropathic psoriasis, unspecified; M06.9 Rheumatoid arthritis, unspecified; N28.9 Disorder of kidney and ureter, unspecified; Z79.51 Long term (current) use of inhaled steroids; Z79.84 Long term (current) use of oral hypoglycemic drugs; Z79.899 Other long term (current) drug therapy; Z88.8 Allergy status to other drugs, medicaments and biological substances
CPT/HCPCS: 49083; P9047

== ENCOUNTER 2019-02-28 07:25 | Day surgery (SDC) | payer MEDICARE ==
[2019-02-27 08:39] VITALS: BMI 29.9
[2019-02-28] MEDS ORDERED: Albumin 25% 200 ML ONE (07:43)
[2019-02-28 07:45] LABS: #Lymphocytes 0.6 thou/uL (1.20-3.40); #Monocytes 0.4 thou/uL (0.11-0.59); #Neutrophils 4.9 thou/uL (1.40-6.50); %Basophils 0.5 % (0.0-1.0); %Eosinophils 0.5 % (0.0-10.0); %Lymphocytes 10.7 % (21.0-51.0); %Monocytes 7.2 % (0.0-10.0); %Neutrophils 81.1 % (42.0-75.0); Mean Corpuscular HGB CONC 31.9 g/dL (32.0-36.0); Mean Corpuscular Hemoglobin 26.1 pg (27.0-31.0); Mean Corpuscular Volume 81.6 fL (78.0-98.0); Platelet Count 212 thou/uL (130-400); RBC Distribution Width 15.3 % (11.5-14.5); Red Blood Cell (RBC) Count 3.45 mill/uL (4.20-5.40)
[2019-02-28 07:52] LABS: INR-International Normal Ratio 1.1; PTT 34.3 SEC (22.9-36.1); Prothrombin Time 14.6 SEC (12.0-14.7)
[2019-02-28 08:05] LABS: Anion Gap 12 mmol/L (10-20); BUN (Urea Nitrogen) 36 mg/dL (9.8-20.1); Calc. Creatinine Clearance 38 mL/min (70-130); Carbon Dioxide 21 mmol/L (23-31); Chloride 106 mmol/L (98-107); Estimated GFR-MDRD 33; Glucose 202 mg/dL (83-110); Potassium 4.1 mmol/L (3.5-5.1); Sodium 135 mmol/L (136-145)
--- NOTE | 2019-02-28 09:58 | ULT ---
PREPROCEDURE DIAGNOSIS: Ascites POST PROCEDURE DIAGNOSIS: Same PROCEDURE: Ultrasound-guided paracentesis MFTS: Pablo ANESTHESIA: 6 mL of buffered 1% lidocaine. SPECIMEN: 7.1 L of straw-colored fluid TECHNIQUE: Prior to the procedure, the risks and benefits of an ultrasound guided paracentesis were explained to the patient which consented fully to the procedure. The area of the largest fluid collection was seen in the left lower quadrant of the abdomen. This are a was prepped and draped in the usual sterile fashion. Lidocaine was used to anesthetize the skin and soft tissues down towards the peritoneal cavity. The p eritoneum was anesthetized. A small skin incision was made for passage of the [place] needle and catheter. This device was then placed using ultrasound guidance into the peritoneal cavity. The needle was removed after return of fluid. The catheter was then connected to multiple Vacutainer bottles. A total of 7.1 L was removed. No residual fluid is seen in this region of the peritoneal cavity. IMPRESSION: Status post successful ultrasound-guided paracentesis
[2019-02-28 10:36] VITALS: BP 113/64; TEMP 98.1
== END 2019-02-28 09:40 | disposition home or self-care (01) ==
LOC: ULT 07:25
PROVIDERS: ATTEND Internal Medicine Gastroenterology
PROC: 0W9G30Z Drainage of Peritoneal Cavity with Drainage Device, Percutaneous Approach (ICD-10-PCS; principal; 2019-02-28)
DX: K74.60 Unspecified cirrhosis of liver (principal); R18.8 Other ascites; E11.9 Type 2 diabetes mellitus without complications; I10 Essential (primary) hypertension; K21.9 Gastro-esophageal reflux disease without esophagitis; L40.50 Arthropathic psoriasis, unspecified; E78.00 Pure hypercholesterolemia, unspecified; D50.0 Iron deficiency anemia secondary to blood loss (chronic); Z88.6 Allergy status to analgesic agent; Z88.8 Allergy status to other drugs, medicaments and biological substances; Z79.84 Long term (current) use of oral hypoglycemic drugs; Z79.51 Long term (current) use of inhaled steroids; Z79.2 Long term (current) use of antibiotics; Z79.899 Other long term (current) drug therapy
CPT/HCPCS: 49083; 80048; 85025; 85610; 85730; P9047; 36415

== ENCOUNTER 2019-03-07 07:24 | Day surgery (SDC) | payer MEDICARE ==
[2019-03-06 08:50] VITALS: BMI 29.9
[2019-03-07] MEDS ORDERED: Sodium Bicarbonate 2.5 MEQ/5 ML VIAL ONE (07:38)
[2019-03-07] MEDS ORDERED: Albumin 25% 200 ML ONE (07:40)
--- NOTE | 2019-03-07 09:54 | ULT ---
US Paracentesis with Imaging History: Ascites Comparison: Paracentesis February 28, 2019 Findings: Patient was brought to the ultrasound suite. All questions were answered. Informed consent was obtained. Timeout performed. Patient's right lower quadrant was prepped and draped in normal sterile fashion. Using ultrasound jered dance after adequate anesthesia the paranasal space was accessed with a 5 Italian catheter. 7450 mL of straw-colored ascites was removed. Patient tolerated the procedure well without complication. Impression: Technically successful ultrasound-guided paracentesis with removal of 7450 mL of straw-co lored ascites.
[2019-03-07 10:06] VITALS: BP 101/60; TEMP 98.1
== END 2019-03-07 09:45 | disposition home or self-care (01) ==
LOC: ULT 07:24
PROVIDERS: ATTEND Internal Medicine Gastroenterology
PROC: 0W9G30Z Drainage of Peritoneal Cavity with Drainage Device, Percutaneous Approach (ICD-10-PCS; principal; 2019-03-07)
DX: K74.60 Unspecified cirrhosis of liver (principal); R18.8 Other ascites; D64.9 Anemia, unspecified; K55.20 Angiodysplasia of colon without hemorrhage; K21.9 Gastro-esophageal reflux disease without esophagitis; E78.00 Pure hypercholesterolemia, unspecified; L40.50 Arthropathic psoriasis, unspecified; E11.9 Type 2 diabetes mellitus without complications; I10 Essential (primary) hypertension; Z88.6 Allergy status to analgesic agent; Z88.8 Allergy status to other drugs, medicaments and biological substances; Z79.84 Long term (current) use of oral hypoglycemic drugs; Z79.51 Long term (current) use of inhaled steroids; Z79.899 Other long term (current) drug therapy
CPT/HCPCS: 49083; P9047

== ENCOUNTER 2019-03-10 09:23 | Outpatient (CLI) | payer MEDICARE ==
--- NOTE | 2019-03-10 11:19 | MRI ---
EXAM: MRI of the abdomen without and with contrast COMPARISON: 04/17/2010 HISTORY: Nonalcoholic cirrhosis with ascites TECHNIQUE: Multiplanar multi sequence MR images were taken of the abdomen without and with IV contras t. FINDINGS: Liver: Cirrhotic in appearance without focal liver lesions. Large volume ascites. Gallbladder: No filling defects or gallbladder wall thickening. Common bile duct: Normal caliber without filling defects Adrenal glands: Unremarkable. Kidneys: No hydronephrosis or suspicious renal lesions. 9 mm left renal cyst. Spleen: Unremarkable. Multiple splenic varices. Pancreas: Unremarkable. Retroperitoneum: No enlarged lymph nodes Bones: No marrow signal abnormality. IMPRESSION: 1. Cirrhosis with sequelae of portal hypertension. 2. Left renal cyst
[2019-03-10] MEDS ORDERED: Gadobenate Dimeglumine 529 MG/1 ML (20ML VIAL) ONE (12:29)
== END 2019-03-10 09:24 | disposition home or self-care (01) ==
LOC: MRI 09:23
PROVIDERS: ATTEND Internal Medicine Gastroenterology
DX: D64.9 Anemia, unspecified (principal); K55.20 Angiodysplasia of colon without hemorrhage; R18.8 Other ascites; K74.60 Unspecified cirrhosis of liver; K76.6 Portal hypertension; N28.1 Cyst of kidney, acquired
CPT/HCPCS: 74183; 82565; A9577

== ENCOUNTER 2019-03-14 07:26 | Day surgery (SDC) | payer MEDICARE ==
[2019-03-13 15:57] VITALS: BMI 27.9
[2019-03-14] MEDS ORDERED: Albumin 25% 200 ML ONE (07:33)
[2019-03-14] MEDS ORDERED: Sodium Bicarbonate 2.5 MEQ/5 ML VIAL ONE (07:33)
--- NOTE | 2019-03-14 09:51 | ULT ---
Exam: Ultrasound guided paracentesis HISTORY: Ascites COMPARISON: March 07, 2019 FINDINGS: Successful ultrasound-guided paracentesis. Total of 7.9 L of normal appearingascites was as pirated. TECHNIQUE: Consent obtained reformatory ultrasound-guided paracentesis. Right lower quadrant was deem ed appropriate. Skin was prepped and draped in a sterile fashion. 1% lidocaine, buffered with sodium bicarbonate was used for local anesthesia. Under ultrasound guidance, a 5 Cape Verdean 7 cm Yueh cat heter is advanced in the peritoneal space. A total of 7.9 L of normal appearingascites was aspirated. No immediate or postprocedural complications IMPRESSION: Successful ultrasound-guided paracentesis.
== END 2019-03-14 09:35 | disposition home or self-care (01) ==
LOC: ULT 07:26
PROVIDERS: ATTEND Internal Medicine Gastroenterology
PROC: 0W9G3ZZ Drainage of Peritoneal Cavity, Percutaneous Approach (ICD-10-PCS; principal; 2019-03-14)
DX: K74.60 Unspecified cirrhosis of liver (principal); R18.8 Other ascites; E11.9 Type 2 diabetes mellitus without complications; I10 Essential (primary) hypertension; M06.9 Rheumatoid arthritis, unspecified; L40.50 Arthropathic psoriasis, unspecified; D64.9 Anemia, unspecified; Z79.84 Long term (current) use of oral hypoglycemic drugs; Z79.899 Other long term (current) drug therapy; Z88.6 Allergy status to analgesic agent; Z88.8 Allergy status to other drugs, medicaments and biological substances; Z98.1 Arthrodesis status
CPT/HCPCS: 49083; P9047

== ENCOUNTER 2019-03-21 07:27 | Day surgery (SDC) | payer MEDICARE ==
[2019-03-20 09:57] VITALS: BMI 29.9
[2019-03-21] MEDS ORDERED: Sodium Bicarbonate 2.5 MEQ/5 ML VIAL ONE (07:36)
[2019-03-21] MEDS ORDERED: Albumin 25% 200 ML ONE (07:36)
[2019-03-21] MEDS ORDERED: Lidocaine 1% PF 5 ML VIAL ONE (07:36)
[2019-03-21 09:29] VITALS: BP 110/55; TEMP 97.4
--- NOTE | 2019-03-21 10:48 | ULT ---
Sonographic guided paracentesis HISTORY: Recurrent ascites. FINDINGS: After explaining the procedure and answering all questions, sonographic survey shows large amount of free fluid throughout the abdomen. Sterile technique, buffered local anesthesia, sonographic guidance, the right lower quadrant approach were used to carefully advance a 19-gauge Ameena h needle and catheter into the free flow noted catheter was left to drain a total volume of 6.1 cloudy light yellow liquid. Minimal fluid remains. Catheter was removed. Patient tolerated the proced ure well and was dismissed in good condition. IMPRESSION: Technically successful sonographic guided paracentesis.
== END 2019-03-21 09:00 | disposition home or self-care (01) ==
LOC: ULT 07:27
PROVIDERS: ATTEND Internal Medicine Gastroenterology
PROC: 0W9G3ZZ Drainage of Peritoneal Cavity, Percutaneous Approach (ICD-10-PCS; principal; 2019-03-21)
DX: K74.60 Unspecified cirrhosis of liver (principal); R18.8 Other ascites; E11.9 Type 2 diabetes mellitus without complications; I10 Essential (primary) hypertension; K21.9 Gastro-esophageal reflux disease without esophagitis; L40.50 Arthropathic psoriasis, unspecified; Z79.84 Long term (current) use of oral hypoglycemic drugs; Z79.899 Other long term (current) drug therapy; Z88.6 Allergy status to analgesic agent; Z88.8 Allergy status to other drugs, medicaments and biological substances
CPT/HCPCS: 49083; P9047; J2001

== ENCOUNTER 2019-03-28 07:19 | Day surgery (SDC) | payer MEDICARE ==
[2019-03-28] MEDS ORDERED: Sodium Bicarbonate 2.5 MEQ/5 ML VIAL ONE (07:33)
[2019-03-28] MEDS ORDERED: Albumin 25% 200 ML ONE (07:33)
[2019-03-28] MEDS ORDERED: Sodium Chloride 0.9% 10 ML ONE (08:14)
--- NOTE | 2019-03-28 09:50 | ULT ---
Exam: Ultrasound guided paracentesis HISTORY: Ascites COMPARISON: March 21, 2019 FINDINGS: Successful ultrasound-guided paracentesis. Total of 7400 cc of normal.ascites was aspirated . TECHNIQUE: Consent obtained reformatory ultrasound-guided paracentesis. Left lower quadrantwas deemed appropriate. Skin was prepped and draped in a sterile fashion. 1% lidocaine, buffered with sodium bicarbonate was used for local anesthesia. Under ultrasound guidance, a 5 Bahamian 7 cm ModiFace catheter i s advanced in the peritoneal space. A total of 7400 cc of normal appearingascites was aspirated. No immediate or postprocedural complications IMPRESSION: Successful ultrasound-guided paracentesis.
[2019-03-28 11:58] VITALS: BMI 28.1
== END 2019-03-28 09:40 | disposition home or self-care (01) ==
LOC: ULT 07:19
PROVIDERS: ATTEND Internal Medicine Gastroenterology
DX: K74.60 Unspecified cirrhosis of liver (principal); R18.8 Other ascites; K55.20 Angiodysplasia of colon without hemorrhage; I10 Essential (primary) hypertension; E11.9 Type 2 diabetes mellitus without complications; D64.9 Anemia, unspecified; E78.00 Pure hypercholesterolemia, unspecified; L40.50 Arthropathic psoriasis, unspecified; M06.9 Rheumatoid arthritis, unspecified; N28.9 Disorder of kidney and ureter, unspecified; K29.70 Gastritis, unspecified, without bleeding; Z79.84 Long term (current) use of oral hypoglycemic drugs; Z79.899 Other long term (current) drug therapy; Z88.8 Allergy status to other drugs, medicaments and biological substances
CPT/HCPCS: 49083; P9047

== ENCOUNTER 2019-04-04 07:13 | Day surgery (SDC) | payer MEDICARE ==
[2019-04-04 07:36] LABS: #Eosinphils 0.1 thou/uL (0.0-0.7); #Lymphocytes 0.9 thou/uL (1.20-3.40); #Monocytes 0.5 thou/uL (0.11-0.59); #Neutrophils 5.4 thou/uL (1.40-6.50); %Basophils 0.6 % (0.0-1.0); %Lymphocytes 12.7 % (21.0-51.0); %Monocytes 7.4 % (0.0-10.0); %Neutrophils 77.2 % (42.0-75.0); Hemoglobin 11.6 g/dL (12.0-16.0); Mean Corpuscular HGB CONC 32.3 g/dL (32.0-36.0); Mean Corpuscular Hemoglobin 28.8 pg (27.0-31.0); Mean Corpuscular Volume 89.2 fL (78.0-98.0); Mean Platelet Volume 10.3 fL (7.4-10.4); Platelet Count 188 thou/uL (130-400); RBC Distribution Width 20.6 % (11.5-14.5); Red Blood Cell (RBC) Count 4.02 mill/uL (4.20-5.40)
[2019-04-04] MEDS ORDERED: Sodium Bicarbonate 2.5 MEQ/5 ML VIAL ONE (07:41)
[2019-04-04] MEDS ORDERED: Albumin 25% 200 ML ONE (07:41)
[2019-04-04 07:43] LABS: INR-International Normal Ratio 1.1; PTT 32.8 SEC (22.9-36.1); Prothrombin Time 14.1 SEC (12.0-14.7)
[2019-04-04 07:54] LABS: Anisocytosis SLIGHT = 6-15 cells (100X) (0-5/hpf); MDiff Complete? YES; Platelet Morphology Comment Appears Adequate
[2019-04-04 07:55] LABS: Anion Gap 15 mmol/L (10-20); BUN (Urea Nitrogen) 45 mg/dL (9.8-20.1); Calc. Creatinine Clearance 0 mL/min (70-130); Calcium 9.9 mg/dL (7.8-10.44); Carbon Dioxide 18 mmol/L (23-31); Chloride 108 mmol/L (98-107); Estimated GFR-MDRD 35; Glucose 134 mg/dL (83-110); Potassium 4.1 mmol/L (3.5-5.1); Sodium 137 mmol/L (136-145)
--- NOTE | 2019-04-04 09:19 | ULT ---
Ultrasound-guided paracentesis: HISTORY: Symptomatic ascites FINDINGS: Informed consent obtained prior to the procedure. Preprocedural imaging demonstrated signif icant ascites throughout the abdomen and pelvis. Left lower quadrantprepped and draped in normal sterile fashion and anesthetized with 1% buffered lid ocaine. With direct sonographic guidance, 5 Montenegrin Yueh catheter is advanced into the ascites and removal of the stylet yielded yellow fluid. 7.1 L were removed. The patient tolerated the procedure well. No postprocedural complications. IMPRESSION: Successful ultrasound-guided paracentesis yielding 7.1 L of yellow ascites.
[2019-04-04 09:56] VITALS: BP 117/63; TEMP 98
== END 2019-04-04 09:30 | disposition home or self-care (01) ==
LOC: ULT 07:13
PROVIDERS: ATTEND Internal Medicine Gastroenterology
PROC: 0W9G30Z Drainage of Peritoneal Cavity with Drainage Device, Percutaneous Approach (ICD-10-PCS; principal; 2019-04-04)
DX: K74.60 Unspecified cirrhosis of liver (principal); R18.8 Other ascites; D64.9 Anemia, unspecified; K55.20 Angiodysplasia of colon without hemorrhage; I10 Essential (primary) hypertension; E11.9 Type 2 diabetes mellitus without complications; E78.00 Pure hypercholesterolemia, unspecified; L40.50 Arthropathic psoriasis, unspecified; K21.9 Gastro-esophageal reflux disease without esophagitis; Z98.1 Arthrodesis status; Z88.6 Allergy status to analgesic agent; Z88.8 Allergy status to other drugs, medicaments and biological substances; Z79.84 Long term (current) use of oral hypoglycemic drugs; Z79.899 Other long term (current) drug therapy
CPT/HCPCS: 49083; 80048; 85025; 85610; 85730; P9047; 36415

== ENCOUNTER 2019-04-11 07:09 | Day surgery (SDC) | payer MEDICARE ==
[2019-04-10 14:31] VITALS: BMI 27.9
[2019-04-11] MEDS ORDERED: Sodium Bicarbonate 2.5 MEQ/5 ML VIAL ONE (07:33)
--- NOTE | 2019-04-11 09:28 | ULT ---
PREPROCEDURE DIAGNOSIS: Ascites POST PROCEDURE DIAGNOSIS: Same PROCEDURE: Ultrasound-guided paracentesis [place] ATTENDANT: Pablo ANESTHESIA: 6 mL of buffered 1% lidocaine. SPECIMEN: 6.6 L of straw-colored fluid TECHNIQUE: Prior to the procedure, the risks and benefits of an ultrasound guided paracentesis were explained to the patient which consented fully to the procedure. The area of the largest fluid collection was seen in the right lower quadrant of the abdomen. This a kat was prepped and draped in the usual sterile fashion. Lidocaine was used to anesthetize the skin and soft tissues down towards the peritoneal cavity. The p eritoneum was anesthetized. A small skin incision was made for passage of the [email or web address] needle and catheter. This device was then placed using ultrasound guidance into the peritoneal cavity. The needle was removed after return of fluid. The catheter was then connected to multiple Vacutainer bottles. A total of 6.6 L was removed. No residual fluid is seen in this region of the peritoneal cavity. IMPRESSION: Status post successful ultrasound-guided paracentesis
[2019-04-11 09:32] VITALS: BP 119/65; TEMP 97.8
== END 2019-04-11 09:10 | disposition home or self-care (01) ==
LOC: ULT 07:09
PROVIDERS: ATTEND Internal Medicine Gastroenterology
DX: K74.60 Unspecified cirrhosis of liver (principal); R18.8 Other ascites; I10 Essential (primary) hypertension; E11.9 Type 2 diabetes mellitus without complications; N28.9 Disorder of kidney and ureter, unspecified; K21.9 Gastro-esophageal reflux disease without esophagitis; K29.70 Gastritis, unspecified, without bleeding; L40.50 Arthropathic psoriasis, unspecified; D64.9 Anemia, unspecified; Z79.84 Long term (current) use of oral hypoglycemic drugs; Z79.899 Other long term (current) drug therapy; Z88.8 Allergy status to other drugs, medicaments and biological substances
CPT/HCPCS: 49083

== ENCOUNTER 2019-04-18 07:20 | Day surgery (SDC) | payer MEDICARE ==
[2019-04-18] MEDS ORDERED: Sodium Bicarbonate 2.5 MEQ/5 ML VIAL ONE (07:45)
[2019-04-18] MEDS ORDERED: Albumin 25% 200 ML ONE (07:49)
--- NOTE | 2019-04-18 09:23 | ULT ---
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 SPECIMEN: 6.4 L of straw-colored fluid TECHNIQUE: Prior to the procedure, the risks and benefits of an ultrasound guided paracentesis were explained to the patient which consented fully to the procedure. The area of the largest fluid collection was seen in the right lower quadrant of the abdomen. This a akt was prepped and draped in the usual sterile fashion. Lidocaine was used to anesthetize the skin and soft tissues down towards the peritoneal cavity. The p eritoneum was anesthetized. A small skin incision was made for passage of the Renovareh needle and catheter. This device was then placed using ultrasound guidance into the peritoneal cavity. The needle was removed after return of fluid. The catheter was then connected to multiple Vacutainer bottles. A total of 6.4 L was removed. No residual fluid is seen in this region of the peritoneal cavity. IMPRESSION: Status post successful ultrasound-guided paracentesis
[2019-04-18 13:20] VITALS: BP 102/63; TEMP 98.1
== END 2019-04-18 09:45 | disposition home or self-care (01) ==
LOC: ULT 07:20
PROVIDERS: ATTEND Internal Medicine Gastroenterology
PROC: 0W9G30Z Drainage of Peritoneal Cavity with Drainage Device, Percutaneous Approach (ICD-10-PCS; principal; 2019-04-18)
DX: K74.60 Unspecified cirrhosis of liver (principal); R18.8 Other ascites; E11.9 Type 2 diabetes mellitus without complications; I10 Essential (primary) hypertension; K21.9 Gastro-esophageal reflux disease without esophagitis; L40.50 Arthropathic psoriasis, unspecified; E78.00 Pure hypercholesterolemia, unspecified; Z88.6 Allergy status to analgesic agent; Z88.8 Allergy status to other drugs, medicaments and biological substances; Z79.84 Long term (current) use of oral hypoglycemic drugs
CPT/HCPCS: 49083; P9047

== ENCOUNTER 2019-04-25 07:25 | Day surgery (SDC) | payer MEDICARE ==
[2019-04-24 17:01] VITALS: BMI 25.7
[2019-04-25] MEDS ORDERED: Albumin 25% 200 ML ONE (08:19)
--- NOTE | 2019-04-25 10:52 | ULT ---
US Paracentesis with Imaging History: Ascites Comparison: Paracentesis prior week Findings: Patient was brought to the ultrasound suite. All questions were answered. Informed consent was obtained. Timeout performed. Patient's right lower quadrant was prepped and draped in normal sterile fashion. 5 mL lidocaine was i nstilled into the superficial and deep soft tissues. Small skin incision was made. Using a 5 Danish catheter 6.2 L of straw-colored fluid was removed. Pat ient tolerated the procedure well without complication. Impression: Technically successful ultrasound-guided right lower quadrant paracentesis.
== END 2019-04-25 09:40 | disposition home or self-care (01) ==
LOC: ULT 07:25
PROVIDERS: ATTEND Internal Medicine Gastroenterology
PROC: 0W9G30Z Drainage of Peritoneal Cavity with Drainage Device, Percutaneous Approach (ICD-10-PCS; principal; 2019-04-25)
DX: K74.60 Unspecified cirrhosis of liver (principal); R18.8 Other ascites; K55.20 Angiodysplasia of colon without hemorrhage; D64.9 Anemia, unspecified; E11.9 Type 2 diabetes mellitus without complications; I10 Essential (primary) hypertension; E78.00 Pure hypercholesterolemia, unspecified; L40.50 Arthropathic psoriasis, unspecified; K21.9 Gastro-esophageal reflux disease without esophagitis; Z88.6 Allergy status to analgesic agent; Z88.8 Allergy status to other drugs, medicaments and biological substances; Z79.84 Long term (current) use of oral hypoglycemic drugs; Z79.899 Other long term (current) drug therapy
CPT/HCPCS: 49083; P9047

== ENCOUNTER 2019-05-02 07:04 | Day surgery (SDC) | payer MEDICARE ==
[2019-05-02] MEDS ORDERED: Sodium Bicarbonate 2.5 MEQ/5 ML VIAL ONE (08:03)
[2019-05-02 09:30] VITALS: BP 111/57; TEMP 97.1
--- NOTE | 2019-05-02 12:15 | ULT ---
Ultrasound-guided paracentesis: HISTORY: Nonalcoholic cirrhosis and recurrent ascites. FINDINGS: Informed consent obtained prior to the procedure. Preprocedural imaging demonstrated intrap eritoneal free fluid. An area was marked in the right mid abdomen, and then meticulously prepped and draped in normal steri le fashion and anesthetized with 1% buffered lidocaine. With direct sonographic guidance, a 19-gauge needle and 5 Syrian Yueh catheter were advanced into the abdomen. After the return of fluid, the catheter was advanced, and the needle was removed. Approximately 6 L of cloudy yellow fluid was aspirated. The introducer sheath was removed, and hemost asis was achieved with direct pressure. A dry sterile dressing was placed. The patient tolerated the procedure well and without immediate complication. IMPRESSION: Technically successful ultrasound-guided paracentesis.
== END 2019-05-02 09:15 | disposition home or self-care (01) ==
LOC: ULT 07:04
PROVIDERS: ATTEND Internal Medicine Gastroenterology
PROC: 0W9G3ZZ Drainage of Peritoneal Cavity, Percutaneous Approach (ICD-10-PCS; principal; 2019-05-02)
DX: K74.60 Unspecified cirrhosis of liver (principal); R18.8 Other ascites; E11.9 Type 2 diabetes mellitus without complications; I10 Essential (primary) hypertension; M06.9 Rheumatoid arthritis, unspecified; L40.50 Arthropathic psoriasis, unspecified; K21.9 Gastro-esophageal reflux disease without esophagitis; N28.9 Disorder of kidney and ureter, unspecified; M19.90 Unspecified osteoarthritis, unspecified site; Z88.8 Allergy status to other drugs, medicaments and biological substances; Z88.6 Allergy status to analgesic agent; Z90.49 Acquired absence of other specified parts of digestive tract; Z90.710 Acquired absence of both cervix and uterus
CPT/HCPCS: 49083; P9047

== ENCOUNTER 2019-05-09 07:26 | Day surgery (SDC) | payer MEDICARE ==
[2019-05-05 08:22] VITALS: BMI 25.7
[2019-05-09] MEDS ORDERED: Sodium Bicarbonate 2.5 MEQ/5 ML VIAL ONE (07:27)
[2019-05-09 08:19] LABS: #Eosinphils 0.1 thou/uL (0.0-0.7); #Lymphocytes 0.9 thou/uL (1.20-3.40); #Monocytes 0.3 thou/uL (0.11-0.59); #Neutrophils 4.7 thou/uL (1.40-6.50); %Basophils 0.4 % (0.0-1.0); %Eosinophils 2.1 % (0.0-10.0); %Lymphocytes 15.1 % (21.0-51.0); %Monocytes 5.5 % (0.0-10.0); %Neutrophils 76.9 % (42.0-75.0); Hemoglobin 12.9 g/dL (12.0-16.0); Mean Corpuscular HGB CONC 32.9 g/dL (32.0-36.0); Mean Corpuscular Hemoglobin 30.2 pg (27.0-31.0); Mean Corpuscular Volume 91.7 fL (78.0-98.0); Mean Platelet Volume 10.4 fL (7.4-10.4); Platelet Count 138 thou/uL (130-400); RBC Distribution Width 18.1 % (11.5-14.5); Red Blood Cell (RBC) Count 4.27 mill/uL (4.20-5.40); White Blood Cell (WBC) Count 6.2 thou/uL (4.8-10.8)
[2019-05-09 08:26] LABS: ALT (SGPT) 43 U/L (8-55); AST (SGOT) 48 U/L (5-34); Albumin 3.5 g/dL (3.4-4.8); Alkaline Phosphatase 156 U/L (40-150); BUN (Urea Nitrogen) 40 mg/dL (9.8-20.1); Bilirubin, Direct 0.3 mg/dL (0.1-0.3); Bilirubin, Total 0.6 mg/dL (0.2-1.2); Calc. Creatinine Clearance 38 mL/min (70-130); Estimated GFR-MDRD 39; Protein, Total 6.3 g/dL (6.0-8.3); Triglycerides 121 mg/dL (Less than 150)
[2019-05-09 08:58] LABS: INR-International Normal Ratio 1.1; PTT 33.1 SEC (22.9-36.1); Prothrombin Time 14.3 SEC (12.0-14.7)
[2019-05-09 09:39] LABS: Anion Gap 12 mmol/L (10-20); BUN (Urea Nitrogen) 40 mg/dL (9.8-20.1); Calc. Creatinine Clearance 38 mL/min (70-130); Calcium 9.6 mg/dL (7.8-10.44); Carbon Dioxide 23 mmol/L (23-31); Chloride 108 mmol/L (98-107); Estimated GFR-MDRD 39; Glucose 122 mg/dL (83-110); Potassium 4.4 mmol/L (3.5-5.1); Sodium 139 mmol/L (136-145)
[2019-05-09 12:32] VITALS: BP 109/61; TEMP 97.5
--- NOTE | 2019-05-09 13:01 | ULT ---
ULTRASOUND-GUIDED PARACENTESIS THERAPEUTIC: DATE: 05/09/2019 HISTORY: 78-year-old female with nonalcoholic cirrhosis presents with abdominal distention due to ascites. She is here for periodic therapeutic paracentesis. TECHNIQUE: Signed informed consent obtained. A four-quadrant survey of abdomen performed. Site selected for puncture: Overlying skin prepared and draped in usual sterile fashion. 25-gauge needle used to apply buffered lidocaine superficially and deeply. 5 Surinamese Yueh catheter with stylette advanced into the pocket of free intraperitoneal fluid. After drainage, the Yueh catheter was removed. Patient tolerated the procedure well. No complications. FINDINGS: Volume of ascites prior to procedure:Moderate to large.. Volume of ascites fluid in the drainage pocket after drainage:Minimal amount.. Volume of ascites fluid drained:6100 mL Appearance of ascites fluid: Nonhemorrhagic, straw-colored. IMPRESSION: Successful therapeutic paracentesis, with drainage of 6.1 L of ascites fluid.
[2019-05-10 15:49] LABS: ANA Symphony (Qualitative) Negative (Negative); ANA Symphony (Quantitative) 0.1 Ratio (< 0.7 Negative); dsDNA IgG Antibody 0.6 IU/mL (<10 Negative)
== END 2019-05-09 08:17 | disposition home or self-care (01) ==
LOC: ULT 07:26
PROVIDERS: ATTEND Internal Medicine Gastroenterology
PROC: 0W9G3ZZ Drainage of Peritoneal Cavity, Percutaneous Approach (ICD-10-PCS; principal; 2019-05-09)
DX: K74.60 Unspecified cirrhosis of liver (principal); R18.8 Other ascites; M06.9 Rheumatoid arthritis, unspecified; L40.50 Arthropathic psoriasis, unspecified; E11.9 Type 2 diabetes mellitus without complications; I10 Essential (primary) hypertension; K21.9 Gastro-esophageal reflux disease without esophagitis; Z79.84 Long term (current) use of oral hypoglycemic drugs; Z88.8 Allergy status to other drugs, medicaments and biological substances; Z79.899 Other long term (current) drug therapy; Z98.1 Arthrodesis status
CPT/HCPCS: 49083; 80048; 80076; 82565; 84478; 84520; 85025; 85610; 85730; 86038; 86225; P9047; 36415

== ENCOUNTER 2019-05-16 07:24 | Day surgery (SDC) | payer MEDICARE ==
[2019-05-16] MEDS ORDERED: Sodium Bicarbonate 2.5 MEQ/5 ML VIAL ONE (07:29)
[2019-05-16] MEDS ORDERED: Albumin 25% 200 ML ONE (07:29)
--- NOTE | 2019-05-16 09:38 | ULT ---
US Paracentesis with Imaging History: Ascites Comparison: Paracentesis May 09, 2019 Findings: Patient was brought to the ultrasound suite. All questions were answered. Informed consent was obtained. Timeout performed. Patient's right lower quadrant was prepped and draped in normal sterile fashion. Using ultrasound jered dance the peritoneal space was accessed with a 5 Indonesian catheter. 6 mL of ascites was removed. Patient tolerated the procedure well without complication. Impression: Technically successful ultrasound-guided paracentesis.
[2019-05-16 09:53] VITALS: BP 107/58; TEMP 98
== END 2019-05-16 09:40 | disposition home or self-care (01) ==
LOC: ULT 07:24
PROVIDERS: ATTEND Internal Medicine Gastroenterology
DX: K74.60 Unspecified cirrhosis of liver (principal); R18.8 Other ascites; I10 Essential (primary) hypertension; E11.9 Type 2 diabetes mellitus without complications; N28.9 Disorder of kidney and ureter, unspecified; D64.9 Anemia, unspecified; M06.9 Rheumatoid arthritis, unspecified; L40.50 Arthropathic psoriasis, unspecified; Z88.8 Allergy status to other drugs, medicaments and biological substances
CPT/HCPCS: 49083; P9047

== ENCOUNTER 2019-05-23 07:25 | Day surgery (SDC) | payer MEDICARE ==
[2019-05-22 08:41] VITALS: BMI 25.7
[2019-05-23] MEDS ORDERED: Sodium Bicarbonate 2.5 MEQ/5 ML VIAL ONE (07:28)
[2019-05-23] MEDS ORDERED: Albumin 25% 200 ML ONE (07:28)
[2019-05-23 10:29] VITALS: BP 129/63; TEMP 98.2
--- NOTE | 2019-05-23 11:15 | ULT ---
Sonographic guided paracentesis HISTORY: Recurrent ascites. FINDINGS: After explaining the procedure and answering all questions, sonographic survey shows large amount of free fluid throughout the abdomen. Sterile technique, buffered local anesthesia, sonographic guidance, and a right lower quadrant approa ch were used to carefully advance a 19-gauge Yueh needle and catheter into the free fluid. Catheter was left to drain a total volume of 6.0 L slightly cloudy yellow liquid. Catheter was removed. Minima l fluid remains. Patient tolerated the procedure well and was dismissed in good condition. IMPRESSION: Technically successful sonographic guided paracentesis.
== END 2019-05-23 10:00 | disposition home or self-care (01) ==
LOC: ULT 07:25
PROVIDERS: ATTEND Internal Medicine Gastroenterology
DX: K74.60 Unspecified cirrhosis of liver (principal); R18.8 Other ascites; I10 Essential (primary) hypertension; E11.9 Type 2 diabetes mellitus without complications; D64.9 Anemia, unspecified; M06.9 Rheumatoid arthritis, unspecified; L40.50 Arthropathic psoriasis, unspecified; Z88.8 Allergy status to other drugs, medicaments and biological substances
CPT/HCPCS: 49083; P9047

== ENCOUNTER 2019-05-30 07:06 | Day surgery (SDC) | payer MEDICARE ==
[2019-05-30] MEDS ORDERED: Sodium Bicarbonate 2.5 MEQ/5 ML VIAL ONE (07:31)
[2019-05-30] MEDS ORDERED: Albumin 25% 200 ML ONE (07:31)
[2019-05-30 08:26] VITALS: BP 119/65; TEMP 98
--- NOTE | 2019-05-30 09:19 | ULT ---
Sonographic guided paracentesis HISTORY: Recurrent ascites. FINDINGS: After explaining the procedure and answering all questions, sonographic survey shows large amount of free fluid throughout the abdomen. Sterile technique, buffered local anesthesia, sonographic guidance, and a right anterolateral approach were used to carefully advance a 19-gauge Velazquez eh needle and catheter into the free fluid. Catheter was left to drain a total volume of 5.1 L liquid. Catheter was removed with minimal fluid remaining. Patient tolerated the procedure well and w as dismissed in good condition. IMPRESSION: Technically successful sonographic guided paracentesis.
== END 2019-05-30 09:00 | disposition home or self-care (01) ==
LOC: ULT 07:06
PROVIDERS: ATTEND Internal Medicine Gastroenterology
PROC: 0W9G3ZZ Drainage of Peritoneal Cavity, Percutaneous Approach (ICD-10-PCS; principal; 2019-05-30)
DX: K74.60 Unspecified cirrhosis of liver (principal); R18.8 Other ascites; L40.50 Arthropathic psoriasis, unspecified; E11.9 Type 2 diabetes mellitus without complications; K21.9 Gastro-esophageal reflux disease without esophagitis; Z88.6 Allergy status to analgesic agent; Z88.8 Allergy status to other drugs, medicaments and biological substances; Z98.1 Arthrodesis status
CPT/HCPCS: 49083; P9047

== ENCOUNTER 2019-06-06 07:24 | Day surgery (SDC) | payer MEDICARE ==
[2019-06-05 10:26] VITALS: BMI 25.7
[2019-06-06] MEDS ORDERED: Albumin 25% 200 ML ONE (07:28)
[2019-06-06] MEDS ORDERED: Sodium Bicarbonate 2.5 MEQ/5 ML VIAL ONE (07:28)
--- NOTE | 2019-06-06 08:50 | ULT ---
Ultrasound-guided paracentesis: HISTORY: Cirrhosis and recurrent ascites FINDINGS: Informed consent obtained prior to the procedure. Preprocedural imaging demonstrated intrap eritoneal free fluid. An area was marked in the right upper quadrant mid axillary line, and then meticulously prepped and d raped in normal sterile fashion and anesthetized with 1% buffered lidocaine. With direct sonographic guidance, a 19-gauge needle and 5 Albanian Yueh catheter were advanced into the abdomen. After the return of fluid, the catheter was advanced, and the needle was removed. Approximately 5 L of cloudy yellow-colored fluid was aspirated. The introducer sheath was removed, an d hemostasis was achieved with direct pressure. A dry sterile dressing was placed. The patient tolerated the procedure well and without immediate complication. IMPRESSION: Technically successful ultrasound-guided paracentesis.
[2019-06-06 10:28] VITALS: BP 124/63; TEMP 98.2
== END 2019-06-06 08:50 | disposition home or self-care (01) ==
LOC: ULT 07:24
PROVIDERS: ATTEND Internal Medicine Gastroenterology
PROC: 0W9G3ZZ Drainage of Peritoneal Cavity, Percutaneous Approach (ICD-10-PCS; principal; 2019-06-06)
DX: K74.60 Unspecified cirrhosis of liver (principal); R18.8 Other ascites; K21.9 Gastro-esophageal reflux disease without esophagitis; E11.9 Type 2 diabetes mellitus without complications; I10 Essential (primary) hypertension; M06.9 Rheumatoid arthritis, unspecified; Z79.84 Long term (current) use of oral hypoglycemic drugs; Z79.899 Other long term (current) drug therapy; Z88.8 Allergy status to other drugs, medicaments and biological substances
CPT/HCPCS: 49083; P9047

== ENCOUNTER 2019-06-13 07:25 | Day surgery (SDC) | payer MEDICARE ==
[2019-06-13] MEDS ORDERED: Albumin 25% 200 ML ONE (07:35)
[2019-06-13 07:44] LABS: #Eosinphils 0.1 thou/uL (0.0-0.7); #Lymphocytes 0.7 thou/uL (1.20-3.40); #Monocytes 0.4 thou/uL (0.11-0.59); #Neutrophils 4.7 thou/uL (1.40-6.50); %Basophils 0.3 % (0.0-1.0); %Eosinophils 1.7 % (0.0-10.0); %Lymphocytes 11.8 % (21.0-51.0); %Monocytes 6.6 % (0.0-10.0); %Neutrophils 79.5 % (42.0-75.0); Hemoglobin 12.9 g/dL (12.0-16.0); Mean Corpuscular HGB CONC 33.2 g/dL (32.0-36.0); Mean Corpuscular Hemoglobin 31.4 pg (27.0-31.0); Mean Corpuscular Volume 94.5 fL (78.0-98.0); Mean Platelet Volume 9.7 fL (7.4-10.4); Platelet Count 145 thou/uL (130-400); RBC Distribution Width 14.4 % (11.5-14.5); Red Blood Cell (RBC) Count 4.11 mill/uL (4.20-5.40); White Blood Cell (WBC) Count 5.9 thou/uL (4.8-10.8)
[2019-06-13 07:50] LABS: INR-International Normal Ratio 1.1; Prothrombin Time 13.7 SEC (12.0-14.7)
[2019-06-13 07:51] LABS: PTT 34.4 SEC (22.9-36.1)
[2019-06-13 08:06] LABS: Anion Gap 14 mmol/L (10-20); BUN (Urea Nitrogen) 40 mg/dL (9.8-20.1); Calc. Creatinine Clearance 0 mL/min (70-130); Calcium 9.2 mg/dL (7.8-10.44); Carbon Dioxide 20 mmol/L (23-31); Chloride 107 mmol/L (98-107); Estimated GFR-MDRD 36; Glucose 188 mg/dL (83-110); Potassium 3.9 mmol/L (3.5-5.1); Sodium 137 mmol/L (136-145)
--- NOTE | 2019-06-13 09:23 | ULT ---
Sonographic guided paracentesis HISTORY: Recurrent ascites. FINDINGS: After explaining the procedure and answering all questions, sonographic survey shows a larg e amount of free fluid throughout the abdomen. Sterile technique, buffered local anesthesia, sonographic guidance, and a left anterior approach were used to carefully advance a 19-gauge Yueh nee dle and catheter into the free fluid. The catheter was left to drain a total volume of 6.0 L clear yellow liquid. Catheter was removed. Minimal fluid remains. Patient tolerated the procedure well and was dismissed in good condition. IMPRESSION: Technically successful sonographic guided paracentesis.
[2019-06-13 09:32] VITALS: BP 104/56; TEMP 97.5
== END 2019-06-13 09:15 | disposition home or self-care (01) ==
LOC: ULT 07:25
PROVIDERS: ATTEND Internal Medicine Gastroenterology
PROC: 0W9G3ZZ Drainage of Peritoneal Cavity, Percutaneous Approach (ICD-10-PCS; principal; 2019-06-13)
DX: K74.60 Unspecified cirrhosis of liver (principal); R18.8 Other ascites; E11.9 Type 2 diabetes mellitus without complications; I10 Essential (primary) hypertension; M06.9 Rheumatoid arthritis, unspecified; L40.50 Arthropathic psoriasis, unspecified; Z79.84 Long term (current) use of oral hypoglycemic drugs; Z79.899 Other long term (current) drug therapy; Z88.8 Allergy status to other drugs, medicaments and biological substances; Z98.1 Arthrodesis status
CPT/HCPCS: 49083; 80048; 85025; 85610; 85730; P9047; 36415

== ENCOUNTER 2019-06-20 07:07 | Day surgery (SDC) | payer MEDICARE ==
[2019-06-19 08:29] VITALS: BMI 25.7
[2019-06-20] MEDS ORDERED: Sodium Bicarbonate 2.5 MEQ/5 ML VIAL ONE (07:31)
[2019-06-20] MEDS ORDERED: Albumin 25% 200 ML ONE (07:31)
[2019-06-20 09:22] VITALS: BP 113/68; TEMP 97.6
--- NOTE | 2019-06-20 09:41 | ULT ---
Sonographic guided paracentesis HISTORY: Recurrent ascites. FINDINGS: After explaining the procedure and answering all questions, sonographic survey shows large amount of free fluid throughout the abdomen. Sterile technique, buffered local anesthesia, sonographic guidance, and a right lateral approach were used to carefully advance the tip of a 19-gau ge Yueh needle and catheter into the free fluid. The catheter was left to drain a total volume of 4.8 L clear yellow liquid. Catheter was removed. Minimal fluid remains. Patient tolerated the procedu re well and was dismissed in good condition. IMPRESSION: Technically successful sonographic guided paracentesis.
== END 2019-06-20 08:45 | disposition home or self-care (01) ==
LOC: ULT 07:07
PROVIDERS: ATTEND Internal Medicine Gastroenterology
PROC: 0W9G3ZZ Drainage of Peritoneal Cavity, Percutaneous Approach (ICD-10-PCS; principal; 2019-06-20)
DX: K74.60 Unspecified cirrhosis of liver (principal); R18.8 Other ascites; K55.20 Angiodysplasia of colon without hemorrhage; I10 Essential (primary) hypertension; D64.9 Anemia, unspecified; M06.9 Rheumatoid arthritis, unspecified; L40.50 Arthropathic psoriasis, unspecified; Z88.8 Allergy status to other drugs, medicaments and biological substances; Z79.82 Long term (current) use of aspirin; Z79.899 Other long term (current) drug therapy
CPT/HCPCS: 49083; P9047

== ENCOUNTER 2019-06-27 07:22 | Day surgery (SDC) | payer MEDICARE ==
[2019-06-26 16:01] VITALS: BMI 25.7
[2019-06-27] MEDS ORDERED: Albumin 25% 200 ML ONE (08:27)
[2019-06-27] MEDS ORDERED: Sodium Bicarbonate 2.5 MEQ/5 ML VIAL ONE (08:27)
[2019-06-27 08:30] VITALS: BP 107/60; TEMP 97.8
--- NOTE | 2019-06-27 09:38 | ULT ---
Exam: Ultrasound guided paracentesis HISTORY: Ascites COMPARISON: 06/20/2019 FINDINGS: Successful ultrasound-guided paracentesis. Total of 5.8 L of cloudy yellow ascites was aspi rated. TECHNIQUE: Consent obtained reformatory ultrasound-guided paracentesis. Right lower quadrant was deem ed appropriate. Skin was prepped and draped in a sterile fashion. 1% lidocaine, buffered with sodium bicarbonate was used for local anesthesia. Under ultrasound guidance, a 5 Rwandan 7 cm Yueh cat heter is advanced in the peritoneal space. A total of 5.8 L of cloudy yellow ascites was aspirated. No immediate or postprocedural complications IMPRESSION: Successful ultrasound-guided paracentesis.
[2019-06-27] MEDS ORDERED: FLU VACC TS2019-20(65YR UP)/PF 180 MCG/0.5 ML SYRINGE IM ONE (12:00)
== END 2019-06-27 09:30 | disposition home or self-care (01) ==
LOC: ULT 07:22
PROVIDERS: ATTEND Internal Medicine Gastroenterology
PROC: 0W9G3ZZ Drainage of Peritoneal Cavity, Percutaneous Approach (ICD-10-PCS; principal; 2019-06-27)
DX: K74.60 Unspecified cirrhosis of liver (principal); R18.8 Other ascites; E11.9 Type 2 diabetes mellitus without complications; L40.50 Arthropathic psoriasis, unspecified; Z79.84 Long term (current) use of oral hypoglycemic drugs; Z79.899 Other long term (current) drug therapy; Z88.6 Allergy status to analgesic agent; Z88.8 Allergy status to other drugs, medicaments and biological substances
CPT/HCPCS: 49083; P9047

== ENCOUNTER 2019-06-28 10:47 | Outpatient (CLI) | payer MEDICARE ==
--- NOTE | 2019-06-28 11:24 | RAD ---
XR Lumbar Spine 2 Or 3 View HISTORY: Low back pain radiating to the right hip and leg FINDINGS: Degenerative changes are present. No fracture, subluxation or bony destruction is seen. There is mini mal anterolisthesis of L3 over L4 vertebral bodies. There is a calculus in the projection of the right kidney.
--- NOTE | 2019-06-28 12:02 | MRI ---
MRI LUMBAR SPINE WITHOUT CONTRAST: HISTORY: Right sciatica COMPARISON: None. FINDINGS: The conus medullaris is normal in morphology and terminates at the L1 level. There is generalized marrow heterogeneity. 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 Incidental note of a cortical cyst of the left kidney. L1-2:Right asymmetric disc osteophyte results in mild effacement of the ventral thecal sac. Mild narr owing of the right neural foramen. Left neural foramen is patent. L2-3:No significant stenosis. L3-4:Trace spondylolisthesis. Broad based disc bulge with moderate central canal stenosis. Crowding o f bilateral traversing L4 nerve roots within each subarticular zone. Mild bilateral neural foraminal narrowing. L4-5:Left paracentral through subarticular disc protrusion is superimposed upon disc osteophyte compl ex with moderate central canal stenosis. There is impingement of the traversing left L5 nerve root. There is moderate left and mild to moderate right neural foraminal narrowing. L5-S1:Right paracentral disc protrusion is superimposed upon broad based disc osteophyte. No signific ant central canal stenosis. Mild effacement of ventral thecal sac. There is encroachment upon the traversing left S1 nerve root as a result of disc osteophyte which also produces moderate left forami nal stenosis. Mild right neural foraminal narrowing. 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 Transcribed Date/Time: 06/28/2019 12:41 PM
== END 2019-06-28 10:48 | disposition home or self-care (01) ==
LOC: SCSMRI 10:47
PROVIDERS: ATTEND Family Medicine
DX: M54.31 Sciatica, right side (principal); M47.816 Spondylosis without myelopathy or radiculopathy, lumbar region; M48.061 Spinal stenosis, lumbar region without neurogenic claudication; M48.07 Spinal stenosis, lumbosacral region
CPT/HCPCS: 72100; 72148

== ENCOUNTER 2019-07-04 07:31 | Day surgery (SDC) | payer MEDICARE ==
[2019-07-04] MEDS ORDERED: Sodium Bicarbonate 2.5 MEQ/5 ML VIAL ONE (07:43)
[2019-07-04] MEDS ORDERED: Albumin 25% 200 ML ONE (07:43)
--- NOTE | 2019-07-04 08:59 | ULT ---
Ultrasound-guided paracentesis: HISTORY: Symptomatic ascites FINDINGS: Informed consent obtained prior to the procedure. Preprocedural imaging demonstrated signif icant ascites throughout the abdomen and pelvis. Right lower quadrant prepped and draped in normal sterile fashion and anesthetized with 1% buffered lidocaine. With direct sonographic guidance, 5 Luxembourgish Yueh catheter is advanced into the ascites and removal of the stylet yielded yellow fluid. 4.1 L were removed. The patient tolerated the procedure well. No postprocedural complications. IMPRESSION: Successful ultrasound-guided paracentesis yielding 4.1 L of yellow ascites.
[2019-07-04 09:38] VITALS: BMI 25.7
[2019-07-04 09:39] VITALS: BP 109/56; TEMP 97.9
== END 2019-07-04 09:00 | disposition home or self-care (01) ==
LOC: ULT 07:31
PROVIDERS: ATTEND Internal Medicine Gastroenterology
PROC: 0W9G3ZZ Drainage of Peritoneal Cavity, Percutaneous Approach (ICD-10-PCS; principal; 2019-07-04)
DX: K74.60 Unspecified cirrhosis of liver (principal); R18.8 Other ascites; E11.9 Type 2 diabetes mellitus without complications; I10 Essential (primary) hypertension; M06.9 Rheumatoid arthritis, unspecified; Z79.84 Long term (current) use of oral hypoglycemic drugs; Z79.899 Other long term (current) drug therapy; Z88.6 Allergy status to analgesic agent; Z88.8 Allergy status to other drugs, medicaments and biological substances
CPT/HCPCS: 49083; P9047

== ENCOUNTER 2019-07-11 07:21 | Day surgery (SDC) | payer MEDICARE ==
[~2019-07-11 07:21] MED LIST changes: +Sodium Bicarbonate 2.5 MEQ/5 ML VIAL ONE
--- NOTE | 2019-07-11 09:10 | ULT ---
Exam: Ultrasound guided paracentesis HISTORY: Ascites COMPARISON: Prior exam dated July 04, 2019 FINDINGS: Successful ultrasound-guided paracentesis. Total of 5.3 L of yellow appearingascites was as pirated. TECHNIQUE: Consent obtained reformatory ultrasound-guided paracentesis. Right lower quadrant was deem ed appropriate. Skin was prepped and draped in a sterile fashion. 1% lidocaine, buffered with sodium bicarbonate was used for local anesthesia. Under ultrasound guidance, a 5 Vietnamese 7 cm Yueh cat heter is advanced in the peritoneal space. A total of 5.3 L of yellow appearingascites was aspirated. No immediate or postprocedural complications IMPRESSION: Successful ultrasound-guided paracentesis.
[2019-07-11 09:14] VITALS: BP 103/57; TEMP 98.6
== END 2019-07-11 09:05 | disposition home or self-care (01) ==
LOC: ULT 07:21
PROVIDERS: ATTEND Internal Medicine Gastroenterology
PROC: 0W9G3ZZ Drainage of Peritoneal Cavity, Percutaneous Approach (ICD-10-PCS; principal; 2019-07-11)
DX: K74.60 Unspecified cirrhosis of liver (principal); R18.8 Other ascites; K21.9 Gastro-esophageal reflux disease without esophagitis; M06.9 Rheumatoid arthritis, unspecified; I10 Essential (primary) hypertension; E11.9 Type 2 diabetes mellitus without complications; Z79.84 Long term (current) use of oral hypoglycemic drugs; Z79.899 Other long term (current) drug therapy; Z88.6 Allergy status to analgesic agent; Z88.8 Allergy status to other drugs, medicaments and biological substances
CPT/HCPCS: 49083; P9047

== ENCOUNTER 2019-07-18 07:06 | Day surgery (SDC) | payer MEDICARE ==
[2019-07-17 11:00] VITALS: BMI 25.7
[2019-07-18] MEDS ORDERED: Sodium Bicarbonate 2.5 MEQ/5 ML VIAL ONE (07:30)
[2019-07-18] MEDS ORDERED: Albumin 25% 200 ML ONE (07:30)
[2019-07-18 07:58] LABS: #Eosinphils 0.1 thou/uL (0.0-0.7); #Lymphocytes 0.8 thou/uL (1.20-3.40); #Monocytes 0.4 thou/uL (0.11-0.59); #Neutrophils 4.1 thou/uL (1.40-6.50); %Basophils 0.2 % (0.0-1.0); %Eosinophils 1.2 % (0.0-10.0); %Lymphocytes 14.4 % (21.0-51.0); %Monocytes 6.9 % (0.0-10.0); %Neutrophils 77.3 % (42.0-75.0); Mean Corpuscular HGB CONC 33.8 g/dL (32.0-36.0); Mean Corpuscular Hemoglobin 32.3 pg (27.0-31.0); Mean Corpuscular Volume 95.6 fL (78.0-98.0); Mean Platelet Volume 9.7 fL (7.4-10.4); Platelet Count 145 thou/uL (130-400); RBC Distribution Width 12.4 % (11.5-14.5); Red Blood Cell (RBC) Count 4.01 mill/uL (4.20-5.40); White Blood Cell (WBC) Count 5.3 thou/uL (4.8-10.8)
[2019-07-18 08:05] LABS: INR-International Normal Ratio 1.1; Prothrombin Time 14.3 SEC (12.0-14.7)
[2019-07-18 08:06] LABS: Anion Gap 14 mmol/L (10-20); BUN (Urea Nitrogen) 33 mg/dL (9.8-20.1); Calc. Creatinine Clearance 39 mL/min (70-130); Calcium 9.3 mg/dL (7.8-10.44); Carbon Dioxide 25 mmol/L (23-31); Chloride 106 mmol/L (98-107); Estimated GFR-MDRD 40; Glucose 160 mg/dL (83-110); Potassium 3.6 mmol/L (3.5-5.1); Sodium 141 mmol/L (136-145)
[2019-07-18 08:06] LABS: PTT 34.3 SEC (22.9-36.1)
--- NOTE | 2019-07-18 09:42 | ULT ---
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 SPECIMEN: 5.8 L of straw-colored fluid TECHNIQUE: Prior to the procedure, the risks and benefits of an ultrasound guided paracentesis were explained to the patient which consented fully to the procedure. The area of the largest fluid collection was seen in the right lower quadrant of the abdomen. This a kat was prepped and draped in the usual sterile fashion. Lidocaine was used to anesthetize the skin and soft tissues down towards the peritoneal cavity. The p eritoneum was anesthetized. A small skin incision was made for passage of the Cymphonixeh needle and catheter. This device was then placed using ultrasound guidance into the peritoneal cavity. The needle was removed after return of fluid. The catheter was then connected to multiple Vacutainer bottles. A total of 5.8 L was removed. Minimal residual fluid is seen in this region of the peritoneal cavity. IMPRESSION: Status post successful ultrasound-guided paracentesis
[2019-07-18 10:46] LABS: Follow-up Chemistry Comp? YES; Follow-up Hematology Comp? YES; Follow-up Result - Chemistry REPORT FAXED; Follow-up Result - Hematology REPORT FAXED
[2019-07-18 12:18] VITALS: BP 123/63; TEMP 97.8
== END 2019-07-18 09:45 | disposition home or self-care (01) ==
LOC: ULT 07:06
PROVIDERS: ATTEND Internal Medicine Gastroenterology
DX: R18.8 Other ascites (principal); K74.60 Unspecified cirrhosis of liver; I10 Essential (primary) hypertension; M06.9 Rheumatoid arthritis, unspecified; L40.50 Arthropathic psoriasis, unspecified; Z79.82 Long term (current) use of aspirin; Z79.84 Long term (current) use of oral hypoglycemic drugs; Z79.899 Other long term (current) drug therapy; Z88.8 Allergy status to other drugs, medicaments and biological substances
CPT/HCPCS: 49083; 80048; 85025; 85610; 85730; P9047

== ENCOUNTER 2019-07-25 07:23 | Day surgery (SDC) | payer MEDICARE ==
[2019-07-24 08:48] VITALS: BMI 25.7
--- NOTE | 2019-07-25 09:18 | ULT ---
Sonographic guided paracentesis HISTORY: Recurrent ascites. FINDINGS: After explaining the procedure and answering all questions, sonographic survey shows large amount of free fluid throughout the abdomen. Sterile technique, buffered local anesthesia, sonographic guidance, and a left lower quadrant approac h were used to carefully advance a 19-gauge Yueh needle and catheter into the free fluid. Catheter was left to drain a total volume of 5.2 L slightly cloudy straw-colored fluid. Minimal fluid remains. Catheter was removed. Patient tolerated the procedure well and was dismissed in good condition. IMPRESSION: Technically successful sonographic guided paracentesis.
== END 2019-07-25 09:15 | disposition home or self-care (01) ==
LOC: ULT 07:23
PROVIDERS: ATTEND Internal Medicine Gastroenterology
PROC: 0W9G3ZZ Drainage of Peritoneal Cavity, Percutaneous Approach (ICD-10-PCS; principal; 2019-07-25)
DX: K74.60 Unspecified cirrhosis of liver (principal); R18.8 Other ascites; E11.9 Type 2 diabetes mellitus without complications; I10 Essential (primary) hypertension; M06.9 Rheumatoid arthritis, unspecified; Z79.84 Long term (current) use of oral hypoglycemic drugs; Z79.899 Other long term (current) drug therapy; Z88.6 Allergy status to analgesic agent; Z88.8 Allergy status to other drugs, medicaments and biological substances
CPT/HCPCS: 49083; P9047

== ENCOUNTER 2019-08-01 07:19 | Day surgery (SDC) | payer MEDICARE ==
[2019-07-31 15:10] VITALS: BMI 25.7
[2019-08-01] MEDS ORDERED: Albumin 25% 200 ML ONE (07:21)
[2019-08-01] MEDS ORDERED: Sodium Bicarbonate 2.5 MEQ/5 ML VIAL ONE (07:21)
--- NOTE | 2019-08-01 09:24 | ULT ---
Exam: Ultrasound guided paracentesis HISTORY: Ascites COMPARISON: Prior exam dated July 25, 2019 FINDINGS: Successful ultrasound-guided paracentesis. Total of 6100 cc normal-appearingascites was asp irated. TECHNIQUE: Consent obtained reformatory ultrasound-guided paracentesis. Right lower quadrant was deem ed appropriate. Skin was prepped and draped in a sterile fashion. 1% lidocaine, buffered with sodium bicarbonate was used for local anesthesia. Under ultrasound guidance, a 5 Greenlandic 7 cm Yueh cat heter is advanced in the peritoneal space. A total of 6100 cc normal appearingascites was aspirated. No immediate or postprocedural complications IMPRESSION: Successful ultrasound-guided paracentesis.
[2019-08-01 09:47] VITALS: BP 110/58; TEMP 98.1
== END 2019-08-01 09:15 | disposition home or self-care (01) ==
LOC: ULT 07:19
PROVIDERS: ATTEND Internal Medicine Gastroenterology
PROC: 0W9G3ZZ Drainage of Peritoneal Cavity, Percutaneous Approach (ICD-10-PCS; principal; 2019-08-01)
DX: K74.60 Unspecified cirrhosis of liver (principal); R18.8 Other ascites; E11.9 Type 2 diabetes mellitus without complications; I10 Essential (primary) hypertension; K21.9 Gastro-esophageal reflux disease without esophagitis; M06.9 Rheumatoid arthritis, unspecified; L40.50 Arthropathic psoriasis, unspecified; Z79.84 Long term (current) use of oral hypoglycemic drugs; Z79.899 Other long term (current) drug therapy; Z88.8 Allergy status to other drugs, medicaments and biological substances
CPT/HCPCS: 49083; P9047

== ENCOUNTER 2019-08-08 07:23 | Day surgery (SDC) | payer MEDICARE ==
--- NOTE | 2019-08-08 12:19 | ULT ---
Ultrasound-guided paracentesis: HISTORY: Cirrhosis and ascites FINDINGS: Informed consent obtained prior to the procedure. Preprocedural imaging demonstrated intrap eritoneal free fluid. An area was marked in the Right lower quadrant , and then meticulously prepped and draped in normal s terile fashion and anesthetized with 1% buffered lidocaine. With direct sonographic guidance, a 19-gauge needle and 5 Malagasy Yueh catheter were advanced into the abdomen. After the return of fluid, the catheter was advanced, and the needle was removed. Approximately 6 L of cloudy straw-colored was aspirated. The introducer sheath was removed, and hemos tasis was achieved with direct pressure. A dry sterile dressing was placed. The patient tolerated the procedure well and without immediate complication. IMPRESSION: Technically successful ultrasound-guided paracentesis.
[2019-08-08 12:50] VITALS: BP 117/54; TEMP 97.5
== END 2019-08-08 10:00 | disposition home or self-care (01) ==
LOC: ULT 07:23
PROVIDERS: ATTEND Internal Medicine Gastroenterology
PROC: 0W9G3ZZ Drainage of Peritoneal Cavity, Percutaneous Approach (ICD-10-PCS; principal; 2019-08-08)
DX: K74.60 Unspecified cirrhosis of liver (principal); R18.8 Other ascites; K21.9 Gastro-esophageal reflux disease without esophagitis; E11.9 Type 2 diabetes mellitus without complications; I10 Essential (primary) hypertension; K72.90 Hepatic failure, unspecified without coma; Z79.84 Long term (current) use of oral hypoglycemic drugs; Z79.899 Other long term (current) drug therapy; Z88.8 Allergy status to other drugs, medicaments and biological substances
CPT/HCPCS: 49083; P9047

== ENCOUNTER 2019-08-15 07:24 | Day surgery (SDC) | payer MEDICARE ==
[2019-08-14 15:16] VITALS: BMI 25.7
[2019-08-15 07:55] LABS: #Eosinphils 0.1 thou/uL (0.0-0.7); #Lymphocytes 0.8 thou/uL (1.20-3.40); #Monocytes 0.4 thou/uL (0.11-0.59); #Neutrophils 4.5 thou/uL (1.40-6.50); %Basophils 0.2 % (0.0-1.0); %Eosinophils 0.9 % (0.0-10.0); %Lymphocytes 14.3 % (21.0-51.0); %Monocytes 7.2 % (0.0-10.0); %Neutrophils 77.4 % (42.0-75.0); Hemoglobin 12.1 g/dL (12.0-16.0); Mean Corpuscular HGB CONC 32.8 g/dL (32.0-36.0); Mean Corpuscular Hemoglobin 31.6 pg (27.0-31.0); Mean Corpuscular Volume 96.2 fL (78.0-98.0); Mean Platelet Volume 9.2 fL (7.4-10.4); Platelet Count 152 thou/uL (130-400); RBC Distribution Width 12.2 % (11.5-14.5); Red Blood Cell (RBC) Count 3.84 mill/uL (4.20-5.40); White Blood Cell (WBC) Count 5.8 thou/uL (4.8-10.8)
[2019-08-15 08:02] LABS: PTT 31.9 SEC (22.9-36.1); Prothrombin Time 13.2 SEC (12.0-14.7)
[2019-08-15] MEDS ORDERED: Sodium Bicarbonate 2.5 MEQ/5 ML VIAL ONE (08:06)
[2019-08-15] MEDS ORDERED: Albumin 25% 200 ML ONE (08:06)
[2019-08-15 08:09] LABS: Anion Gap 14 mmol/L (10-20); BUN (Urea Nitrogen) 43 mg/dL (9.8-20.1); Calc. Creatinine Clearance 35 mL/min (70-130); Calcium 9.2 mg/dL (7.8-10.44); Carbon Dioxide 23 mmol/L (23-31); Chloride 106 mmol/L (98-107); Estimated GFR-MDRD 35; Glucose 145 mg/dL (83-110); Potassium 4.1 mmol/L (3.5-5.1); Sodium 139 mmol/L (136-145)
--- NOTE | 2019-08-15 09:57 | ULT ---
Exam: Ultrasound guided paracentesis HISTORY: Ascites COMPARISON: 08/08/2019 FINDINGS: Successful ultrasound-guided paracentesis. Total of 5 L of yellow color ascites was aspirat ed. TECHNIQUE: Consent obtained reformatory ultrasound-guided paracentesis. Left lower quadrantwas deemed appropriate. Skin was prepped and draped in a sterile fashion. 1% lidocaine, buffered with sodium bicarbonate was used for local anesthesia. Under ultrasound guidance, a 5 Sinhala 7 cm Real Food Real Kitchenseh catheter i s advanced in the peritoneal space. A total of 5 L of yellow color ascites was aspirated. No immediate or postprocedural complications IMPRESSION: Successful ultrasound-guided paracentesis.
[2019-08-15 12:38] VITALS: BP 109/61; TEMP 97.5
== END 2019-08-15 09:45 | disposition home or self-care (01) ==
LOC: ULT 07:24
PROVIDERS: ATTEND Internal Medicine Gastroenterology
PROC: 0W9G3ZZ Drainage of Peritoneal Cavity, Percutaneous Approach (ICD-10-PCS; principal; 2019-08-15)
DX: K74.60 Unspecified cirrhosis of liver (principal); R18.8 Other ascites; E11.9 Type 2 diabetes mellitus without complications; I10 Essential (primary) hypertension; K21.9 Gastro-esophageal reflux disease without esophagitis; M06.9 Rheumatoid arthritis, unspecified; L40.50 Arthropathic psoriasis, unspecified; Z79.84 Long term (current) use of oral hypoglycemic drugs; Z79.899 Other long term (current) drug therapy; Z88.8 Allergy status to other drugs, medicaments and biological substances
CPT/HCPCS: 49083; 80048; 85025; 85610; 85730; P9047; 36415

== ENCOUNTER 2019-08-22 07:14 | Day surgery (SDC) | payer MEDICARE ==
[2019-08-22] MEDS ORDERED: Albumin 25% 200 ML ONE (07:33)
[2019-08-22] MEDS ORDERED: Sodium Bicarbonate 2.5 MEQ/5 ML VIAL ONE (07:33)
--- NOTE | 2019-08-22 09:13 | ULT ---
Ultrasound-guided paracentesis: 08/22/2019 HISTORY: Symptomatic ascites FINDINGS: Informed consent obtained prior to the procedure. Preprocedural imaging demonstrated signif icant ascites throughout the abdomen and pelvis. Lateral aspect of mid right abdomenprepped and draped in normal sterile fashion and anesthetized with 1% buffered lidocaine. With direct sonographic guidance, 5 Icelandic Yueh catheter is advanced into the ascites and removal of the stylet yielded yellowfluid. 5800 L were removed. The patient tolerated the procedure well. No postprocedural complications. IMPRESSION: Successful ultrasound-guided paracentesis yielding 5800 L of yellow fluid.
[2019-08-22 12:33] VITALS: BP 106/59; TEMP 98.2
[2019-08-22 12:35] VITALS: BMI 25.7
== END 2019-08-22 09:10 | disposition home or self-care (01) ==
LOC: ULT 07:14
PROVIDERS: ATTEND Internal Medicine Gastroenterology
PROC: 0W9G3ZZ Drainage of Peritoneal Cavity, Percutaneous Approach (ICD-10-PCS; principal; 2019-08-22)
DX: K74.60 Unspecified cirrhosis of liver (principal); R18.8 Other ascites; E11.9 Type 2 diabetes mellitus without complications; I10 Essential (primary) hypertension; E78.00 Pure hypercholesterolemia, unspecified; L40.50 Arthropathic psoriasis, unspecified; Z79.51 Long term (current) use of inhaled steroids; Z79.52 Long term (current) use of systemic steroids; Z79.84 Long term (current) use of oral hypoglycemic drugs; Z79.899 Other long term (current) drug therapy; Z85.820 Personal history of malignant melanoma of skin; Z88.6 Allergy status to analgesic agent; Z88.8 Allergy status to other drugs, medicaments and biological substances; Z91.040 Latex allergy status
CPT/HCPCS: 49083; P9047

== ENCOUNTER 2019-08-28 07:20 | Day surgery (SDC) | payer MEDICARE ==
[2019-08-25 15:09] VITALS: BMI 25.7
[2019-08-28] MEDS ORDERED: Sodium Bicarbonate 2.5 MEQ/5 ML VIAL ONE (07:42)
[2019-08-28] MEDS ORDERED: Albumin 25% 200 ML ONE (07:42)
[2019-08-28 08:43] VITALS: BP 110/61; TEMP 98.2
--- NOTE | 2019-08-28 10:06 | ULT ---
ULTRASOUND GUIDED ABDOMINAL PARACENTESIS: INDICATIONS: Recurrent ascites due to cirrhosis. FINDINGS: Yellow-cloudy acidic fluid, 4900 mL, was removed from the right lower quadrant. PROCEDURE: A four quadrant ultrasound shows moderate volume ascites. The right lower quadrant was chosen for pun cture. The overlying skin was prepped and draped in a sterile manner. Local anesthesia was administer ed with Lidocaine. A tiny skin elaine was made with a scalpel. A 5 Tristanian Yueh catheter with needle in place was introduced under ultrasound guidance and confirmation. The needle was removed and the jamee ter was attached to suction drainage and 4900 mL of fluid was removed. Post procedure ultrasound show ed minimal residual ascites. There were no problems or complications. POS: MIRYAM
== END 2019-08-28 08:45 | disposition home or self-care (01) ==
LOC: ULT 07:20
PROVIDERS: ATTEND Internal Medicine Gastroenterology
PROC: 0W9G3ZZ Drainage of Peritoneal Cavity, Percutaneous Approach (ICD-10-PCS; principal; 2019-08-28)
DX: K74.60 Unspecified cirrhosis of liver (principal); R18.8 Other ascites; Z79.84 Long term (current) use of oral hypoglycemic drugs; Z79.899 Other long term (current) drug therapy; Z88.6 Allergy status to analgesic agent; Z88.8 Allergy status to other drugs, medicaments and biological substances
CPT/HCPCS: 49083; P9047

== ENCOUNTER 2019-09-04 07:23 | Day surgery (SDC) | payer MEDICARE ==
[2019-09-04] MEDS ORDERED: Albumin 25% 200 ML ONE (08:08)
--- NOTE | 2019-09-04 08:40 | ULT ---
PREPROCEDURE DIAGNOSIS: Ascites POST PROCEDURE DIAGNOSIS: Same PROCEDURE: Ultrasound-guided paracentesis RINK RAT: Pablo ANESTHESIA: 6 mL of buffered 1% lidocaine. SPECIMEN: 5.2 L of straw-colored fluid TECHNIQUE: Prior to the procedure, the risks and benefits of an ultrasound guided paracentesis were explained to the patient which consented fully to the procedure. The area of the largest fluid collection was seen in the right upper quadrant of the abdomen. This ar ea was prepped and draped in the usual sterile fashion. Lidocaine was used to anesthetize the skin and soft tissues down towards the peritoneal cavity. The p eritoneum was anesthetized. A small skin incision was made for passage of the payByMobileeh needle and catheter. This device was then placed using ultrasound guidance into the peritoneal cavity. The needle was removed after return of fluid. The catheter was then connected to multiple Vacutainer bottles. A total of 5.2 L was removed. No residual fluid is seen in this region of the peritoneal cavity. IMPRESSION: Status post successful ultrasound-guided paracentesis
[2019-09-04 13:07] VITALS: BP 104/62; TEMP 97.5
== END 2019-09-04 08:50 | disposition home or self-care (01) ==
LOC: ULT 07:23
PROVIDERS: ATTEND Internal Medicine Gastroenterology
PROC: 0W9G3ZZ Drainage of Peritoneal Cavity, Percutaneous Approach (ICD-10-PCS; principal; 2019-09-04)
DX: K74.60 Unspecified cirrhosis of liver (principal); R18.8 Other ascites; I10 Essential (primary) hypertension; E11.9 Type 2 diabetes mellitus without complications; M06.9 Rheumatoid arthritis, unspecified; L40.50 Arthropathic psoriasis, unspecified; N28.9 Disorder of kidney and ureter, unspecified; Z88.6 Allergy status to analgesic agent; Z88.8 Allergy status to other drugs, medicaments and biological substances
CPT/HCPCS: 49083; P9047

== ENCOUNTER 2019-09-12 07:11 | Day surgery (SDC) | payer MEDICARE ==
[2019-09-11 07:47] VITALS: BMI 25.7
[2019-09-12] MEDS ORDERED: Sodium Bicarbonate 2.5 MEQ/5 ML VIAL ONE (07:29)
[2019-09-12] MEDS ORDERED: Albumin 25% 200 ML ONE (07:29)
[2019-09-12 07:50] LABS: #Eosinphils 0.1 thou/uL (0.0-0.7); #Lymphocytes 0.7 thou/uL (1.20-3.40); #Monocytes 0.3 thou/uL (0.11-0.59); #Neutrophils 3.6 thou/uL (1.40-6.50); %Basophils 0.5 % (0.0-1.0); %Eosinophils 1.2 % (0.0-10.0); %Lymphocytes 15.3 % (21.0-51.0); %Monocytes 7.2 % (0.0-10.0); %Neutrophils 75.8 % (42.0-75.0); Hemoglobin 12.2 g/dL (12.0-16.0); Mean Corpuscular HGB CONC 33.3 g/dL (32.0-36.0); Mean Corpuscular Hemoglobin 31.9 pg (27.0-31.0); Mean Corpuscular Volume 95.8 fL (78.0-98.0); Platelet Count 148 thou/uL (130-400); RBC Distribution Width 11.8 % (11.5-14.5); Red Blood Cell (RBC) Count 3.83 mill/uL (4.20-5.40); White Blood Cell (WBC) Count 4.8 thou/uL (4.8-10.8)
[2019-09-12 08:03] LABS: Anion Gap 13 mmol/L (10-20); BUN (Urea Nitrogen) 29 mg/dL (9.8-20.1); Calc. Creatinine Clearance 40 mL/min (70-130); Calcium 9.1 mg/dL (7.8-10.44); Carbon Dioxide 25 mmol/L (23-31); Chloride 104 mmol/L (98-107); Estimated GFR-MDRD 42; Glucose 170 mg/dL (83-110); Potassium 4.1 mmol/L (3.5-5.1); Sodium 138 mmol/L (136-145)
[2019-09-12 08:04] LABS: INR-International Normal Ratio 1.1
--- NOTE | 2019-09-12 09:30 | ULT ---
Ultrasound-guided paracentesis: 09/12/2019 HISTORY: Symptomatic ascites FINDINGS: Informed consent obtained prior to the procedure. Preprocedural imaging demonstrated signif icant ascites throughout the abdomen and pelvis. Right mid abdomenprepped and draped in normal sterile fashion and anesthetized with 1% buffered lidoc mario. With direct sonographic guidance, 5 Prydeinig Yueh catheter is advanced into the ascites and removal of the stylet yielded yellowfluid. 6.4 L were removed. The patient tolerated the procedure well. No postprocedural complications. IMPRESSION: Successful ultrasound-guided paracentesis yielding 6.4 L of yellow fluid.
[2019-09-12 11:07] VITALS: BP 123/62; TEMP 97.9
== END 2019-09-12 09:30 | disposition home or self-care (01) ==
LOC: ULT 07:11
PROVIDERS: ATTEND Internal Medicine Gastroenterology
PROC: 0W9G3ZZ Drainage of Peritoneal Cavity, Percutaneous Approach (ICD-10-PCS; principal; 2019-09-12)
DX: K74.60 Unspecified cirrhosis of liver (principal); R18.8 Other ascites; K21.9 Gastro-esophageal reflux disease without esophagitis; I10 Essential (primary) hypertension; E11.9 Type 2 diabetes mellitus without complications; M06.9 Rheumatoid arthritis, unspecified; L40.50 Arthropathic psoriasis, unspecified; Z79.84 Long term (current) use of oral hypoglycemic drugs; Z79.899 Other long term (current) drug therapy; Z88.8 Allergy status to other drugs, medicaments and biological substances
CPT/HCPCS: 49083; 80048; 85025; 85610; 85730; P9047; 36415

== ENCOUNTER 2019-09-19 07:26 | Day surgery (SDC) | payer MEDICARE ==
[2019-09-18 15:15] VITALS: BMI 25.7
[2019-09-19] MEDS ORDERED: Albumin 25% 200 ML ONE (07:58)
[2019-09-19] MEDS ORDERED: Sodium Bicarbonate 2.5 MEQ/5 ML VIAL ONE (07:58)
[2019-09-19 08:25] VITALS: BP 113/59; TEMP 97.9
--- NOTE | 2019-09-19 09:21 | ULT ---
Exam: Ultrasound guided paracentesis HISTORY: Ascites COMPARISON: 09/12/2019 FINDINGS: Successful ultrasound-guided paracentesis. Total of 5 L of yellow color ascites was aspirat ed. TECHNIQUE: Consent obtained reformatory ultrasound-guided paracentesis. Right lower quadrant was deem ed appropriate. Skin was prepped and draped in a sterile fashion. 1% lidocaine, buffered with sodium bicarbonate was used for local anesthesia. Under ultrasound guidance, a 5 Costa Rican 7 cm Yueh cat heter is advanced in the peritoneal space. A total of 5 L of yellow color ascites was aspirated. No immediate or postprocedural complications IMPRESSION: Successful ultrasound-guided paracentesis.
== END 2019-09-19 09:45 | disposition home or self-care (01) ==
LOC: ULT 07:26
PROVIDERS: ATTEND Internal Medicine Gastroenterology
PROC: 0W9G3ZZ Drainage of Peritoneal Cavity, Percutaneous Approach (ICD-10-PCS; principal; 2019-09-19)
DX: K74.60 Unspecified cirrhosis of liver (principal); R18.8 Other ascites; E11.9 Type 2 diabetes mellitus without complications; I10 Essential (primary) hypertension; K21.9 Gastro-esophageal reflux disease without esophagitis; M06.9 Rheumatoid arthritis, unspecified; L40.50 Arthropathic psoriasis, unspecified; Z79.84 Long term (current) use of oral hypoglycemic drugs; Z79.899 Other long term (current) drug therapy; Z88.8 Allergy status to other drugs, medicaments and biological substances; Z98.1 Arthrodesis status
CPT/HCPCS: 49083; P9047

== ENCOUNTER 2019-09-26 07:26 | Day surgery (SDC) | payer MEDICARE ==
[2019-09-25 13:16] VITALS: BMI 28.9
[2019-09-26] MEDS ORDERED: Albumin 25% 200 ML ONE (07:28)
[2019-09-26] MEDS ORDERED: Lidocaine 1% PF 5 ML VIAL ONE (07:28)
[2019-09-26] MEDS ORDERED: Sodium Bicarbonate 2.5 MEQ/5 ML VIAL ONE (07:28)
--- NOTE | 2019-09-26 09:00 | ULT ---
PREPROCEDURE DIAGNOSIS: Ascites POST PROCEDURE DIAGNOSIS: Same PROCEDURE: Ultrasound-guided paracentesis WEIR FISHER: Pablo ANESTHESIA: 5 mL of buffered 1% lidocaine. SPECIMEN: 3.5 L of straw-colored fluid TECHNIQUE: Prior to the procedure, the risks and benefits of an ultrasound guided paracentesis were explained to the patient which consented fully to the procedure. The area of the largest fluid collection was seen in the right upper quadrant of the abdomen. This ar ea was prepped and draped in the usual sterile fashion. Lidocaine was used to anesthetize the skin and soft tissues down towards the peritoneal cavity. The p eritoneum was anesthetized. A small skin incision was made for passage of the MOBITRACeh needle and catheter. This device was then placed using ultrasound guidance into the peritoneal cavity. The needle was removed after return of fluid. The catheter was then connected to multiple Vacutainer bottles. A total of 3.5 L was removed. No residual fluid is seen in this region of the peritoneal cavity. IMPRESSION: Status post successful ultrasound-guided paracentesis
[2019-09-26 09:14] VITALS: BP 110/61; TEMP 97.9
== END 2019-09-26 09:00 | disposition home or self-care (01) ==
LOC: ULT 07:26
PROVIDERS: ATTEND Internal Medicine Gastroenterology
PROC: 0W9G3ZZ Drainage of Peritoneal Cavity, Percutaneous Approach (ICD-10-PCS; principal; 2019-09-26)
DX: K74.60 Unspecified cirrhosis of liver (principal); R18.8 Other ascites; K76.0 Fatty (change of) liver, not elsewhere classified; I10 Essential (primary) hypertension; E11.9 Type 2 diabetes mellitus without complications; Z88.6 Allergy status to analgesic agent; Z88.8 Allergy status to other drugs, medicaments and biological substances; Z91.040 Latex allergy status
CPT/HCPCS: 49083; P9047; J2001

== ENCOUNTER 2019-10-03 07:26 | Day surgery (SDC) | payer MEDICARE ==
[2019-10-02 08:21] VITALS: BMI 28.9
[2019-10-03] MEDS ORDERED: Lidocaine 1% PF 5 ML VIAL ONE (07:32)
[2019-10-03] MEDS ORDERED: Sodium Bicarbonate 2.5 MEQ/5 ML VIAL ONE (07:32)
[2019-10-03] MEDS ORDERED: Albumin 25% 200 ML ONE (07:32)
--- NOTE | 2019-10-03 09:27 | ULT ---
Ultrasound-guided paracentesis: HISTORY: Cirrhosis and symptomatic ascites. FINDINGS: Informed consent obtained prior to the procedure. Preprocedural imaging demonstrated intrap eritoneal free fluid. An area was marked in the right mid abdomen in the mid axillary line, and then meticulously prepped a nd draped in normal sterile fashion and anesthetized with 1% buffered lidocaine. 50 g of albumin was administered intravenously during the exam. With direct sonographic guidance, a 19-gauge needle and 5 Yakut Yueh catheter were advanced into the abdomen. After the return of fluid, the catheter was advanced, and the needle was removed. Approximately 8 L of cloudy yellow fluid was aspirated. The introducer sheath was removed, and hemost asis was achieved with direct pressure. A dry sterile dressing was placed. The patient tolerated the procedure well and without immediate complication. IMPRESSION: Technically successful ultrasound-guided paracentesis.
[2019-10-03 11:45] VITALS: BP 122/62; TEMP 98.3
== END 2019-10-03 09:20 | disposition home or self-care (01) ==
LOC: ULT 07:26
PROVIDERS: ATTEND Internal Medicine Gastroenterology
PROC: 0W9G3ZZ Drainage of Peritoneal Cavity, Percutaneous Approach (ICD-10-PCS; principal; 2019-10-03)
DX: K74.60 Unspecified cirrhosis of liver (principal); R18.8 Other ascites; K72.90 Hepatic failure, unspecified without coma; E11.9 Type 2 diabetes mellitus without complications; L40.50 Arthropathic psoriasis, unspecified; I10 Essential (primary) hypertension; E78.00 Pure hypercholesterolemia, unspecified; Z79.84 Long term (current) use of oral hypoglycemic drugs; Z79.899 Other long term (current) drug therapy; Z88.8 Allergy status to other drugs, medicaments and biological substances
CPT/HCPCS: 49083; P9047; J2001

== ENCOUNTER 2019-10-10 07:32 | Day surgery (SDC) | payer MEDICARE ==
[2019-10-10] MEDS ORDERED: Lidocaine 1% PF 5 ML VIAL ONE (07:44)
[2019-10-10] MEDS ORDERED: Sodium Bicarbonate 2.5 MEQ/5 ML VIAL ONE (07:44)
[2019-10-10] MEDS ORDERED: Albumin 25% 200 ML ONE (07:45)
[2019-10-10 07:53] LABS: #Basophils 0.1 thou/uL (0.0-0.2); #Eosinphils 0.1 thou/uL (0.0-0.7); #Lymphocytes 0.6 thou/uL (1.20-3.40); #Monocytes 0.5 thou/uL (0.11-0.59); #Neutrophils 4.3 thou/uL (1.40-6.50); %Eosinophils 1.3 % (0.0-10.0); %Lymphocytes 11.4 % (21.0-51.0); %Monocytes 8.2 % (0.0-10.0); %Neutrophils 78.2 % (42.0-75.0); Mean Corpuscular HGB CONC 31.7 g/dL (32.0-36.0); Mean Corpuscular Hemoglobin 29.4 pg (27.0-31.0); Mean Platelet Volume 10.2 fL (7.4-10.4); Platelet Count 163 thou/uL (130-400); RBC Distribution Width 11.4 % (11.5-14.5); Red Blood Cell (RBC) Count 4.09 mill/uL (4.20-5.40); White Blood Cell (WBC) Count 5.6 thou/uL (4.8-10.8)
[2019-10-10 08:03] LABS: INR-International Normal Ratio 1.1; PTT 35.5 SEC (22.9-36.1); Prothrombin Time 14.1 SEC (12.0-14.7)
[2019-10-10 08:11] LABS: Anion Gap 12 mmol/L (10-20); BUN (Urea Nitrogen) 39 mg/dL (9.8-20.1); Calc. Creatinine Clearance 0 mL/min (70-130); Calcium 9.4 mg/dL (7.8-10.44); Carbon Dioxide 24 mmol/L (23-31); Chloride 105 mmol/L (98-107); Estimated GFR-MDRD 36; Glucose 159 mg/dL (83-110); Sodium 137 mmol/L (136-145)
[2019-10-10 09:38] VITALS: BP 101/62; TEMP 97.3
--- NOTE | 2019-10-10 12:01 | ULT ---
Ultrasound-guided paracentesis: HISTORY: Cirrhosis and symptomatic ascites. FINDINGS: Informed consent obtained prior to the procedure. Preprocedural imaging demonstrated intrap eritoneal free fluid. An area was marked in the right mid abdomen in the mid axillary line, and then meticulously prepped a nd draped in normal sterile fashion and anesthetized with 1% buffered lidocaine. 50 g of albumin was administered intravenously during the exam. With direct sonographic guidance, a 19-gauge needle and 5 Macedonian Azaleoseh catheter were advanced into the abdomen. After the return of fluid, the catheter was advanced, and the needle was removed. Approximately 8 L of clear straw-colored fluid was aspirated. The introducer sheath was removed, and hemostasis was achieved with direct pressure. A dry sterile dressing was placed. The patient tolerated the procedure well and without immediate complication. IMPRESSION: Technically successful ultrasound-guided paracentesis.
== END 2019-10-10 09:20 | disposition home or self-care (01) ==
LOC: ULT 07:32
PROVIDERS: ATTEND Internal Medicine Gastroenterology
PROC: 0W9G3ZZ Drainage of Peritoneal Cavity, Percutaneous Approach (ICD-10-PCS; principal; 2019-10-10)
PROC: BW40ZZZ Ultrasonography of Abdomen (ICD-10-PCS; 2019-10-10)
DX: K74.60 Unspecified cirrhosis of liver (principal); R18.8 Other ascites; K76.0 Fatty (change of) liver, not elsewhere classified; I10 Essential (primary) hypertension; E11.9 Type 2 diabetes mellitus without complications; D64.9 Anemia, unspecified; Z88.6 Allergy status to analgesic agent; Z88.8 Allergy status to other drugs, medicaments and biological substances; Z91.040 Latex allergy status
CPT/HCPCS: 49083; 80048; 85025; 85610; 85730; P9047; 36415; J2001

== ENCOUNTER 2019-10-16 18:06 | Inpatient (IN) | payer MEDICARE ==
[2019-10-16 21:49] LABS: #Lymphocytes 0.7 thou/uL (1.20-3.40); #Monocytes 0.5 thou/uL (0.11-0.59); #Neutrophils 4.3 thou/uL (1.40-6.50); %Basophils 0.7 % (0.0-1.0); %Eosinophils 0.8 % (0.0-10.0); %Lymphocytes 12.1 % (21.0-51.0); %Monocytes 8.8 % (0.0-10.0); %Neutrophils 77.5 % (42.0-75.0); Hemoglobin 12.8 g/dL (12.0-16.0); Mean Corpuscular Hemoglobin 31.2 pg (27.0-31.0); Mean Corpuscular Volume 94.5 fL (78.0-98.0); Mean Platelet Volume 10.2 fL (7.4-10.4); Platelet Count 148 thou/uL (130-400); RBC Distribution Width 11.4 % (11.5-14.5); Red Blood Cell (RBC) Count 4.12 mill/uL (4.20-5.40); White Blood Cell (WBC) Count 5.6 thou/uL (4.8-10.8)
[2019-10-16 22:17] LABS: ALT (SGPT) 28 U/L (8-55); AST (SGOT) 38 U/L (5-34); Albumin 3.4 g/dL (3.4-4.8); Alkaline Phosphatase 142 U/L (40-110); Anion Gap 13 mmol/L (10-20); BUN (Urea Nitrogen) 41 mg/dL (9.8-20.1); Bilirubin, Total 0.3 mg/dL (0.2-1.2); Calc. Creatinine Clearance 0 mL/min (70-130); Calcium 9.3 mg/dL (7.8-10.44); Carbon Dioxide 24 mmol/L (23-31); Chloride 107 mmol/L (98-107); Estimated GFR-MDRD 32; Globulin 2.8 g/dL (2.4-3.5); Glucose 116 mg/dL (83-110); Potassium 4.3 mmol/L (3.5-5.1); Protein, Total 6.2 g/dL (6.0-8.3); Sodium 140 mmol/L (136-145)
[2019-10-17] MEDS ORDERED: Fluocinonide 0.05% Ointment 15 gm Tube TOP PRN ×2 (08:20→08:24)
[2019-10-17] MEDS ORDERED: ACETAMINOPHEN 500 MG PO PRN (08:20)
--- NOTE | 2019-10-17 08:22 | PDOC.HHP ---
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 THe patient states around 5:30 pm yesterday she was sitting in her bed crocheting when she felt something wet in her pant area. SHe lifted her shirt up and noticed that the chronic scab she had near her umbilical area had broken open and fluid was draining from her navel area. She denied fevers, chills, foul smelling discharge. The patient states that she follows with Dr. Kramer from for cirrhosis and gets paracentesis every Wednesday. He referred her to Dr. Ureña a few weeks ago to see if surgery needed to be done to close the wound, and at that time she was told she did not need any surgery. She was then referred to wound care and she states her appointment is on the so she hasn 't seen them yet. SHe denies any history of SBP in the past. SHe takes lasix everyday. ED Course: Upon presentation to the ER, the patient had normal vital signs. Labs showed elevated creatinine of 1.56 which is her baseline. CT abdomen ordered and pending. Per ER attending, DR. Ureña requested medical admission and will monitor for need for any wound closure. Upon coming to the floor, per nursing staff patient leaked so much fluid while ambulating they felt she no longer needed paracentesis. Hospitalist ROS - Review of Systems Constitutional: denies: fever, chills Eyes: denies: vision change ENT: denies: ear discharge Respiratory: denies: cough, dry, shortness of breath Cardiovascular: denies: chest pain, palpitations, orthopnea, paroxysmal noc. dyspnea Gastrointestinal: denies: nausea, vomiting, abdominal pain, diarrhea, constipation Genitourinary: denies: dysuria, frequency, incontinence Other: abdominal distension Hospitalist History - Past Medical History Dermatology: reports: Psoriasis - Past Surgical History Other Surgical History: Neck surgery Lithotripsy for bladder stones Melanoma removed from arm Catarct surgery Cholecystectomy Hysterectomy - Family History Other Family History: No family history of cirrhosis - Social History Smoking Status: Never smoker Drugs: reports: none - Exam General Appearance: NAD, awake alert Eye: PERRL, anicteric sclera ENT: normocephalic atraumatic, no oropharyngeal lesions Neck: supple, symmetric, no JVD Heart: RRR, no murmur, no gallops, no rubs Respiratory: CTAB, no wheezes, no rales, no ronchi Gastrointestinal: soft, non-tender, normal bowel sounds Gastrointestinal - other findings: abdomen significantly distended. Open wound with intestine protruding Extremities: no cyanosis, no clubbing, no edema Skin: normal turgor, no lesions, no rashes Neurological: cranial nerve grossly intact, normal sensation to touch, no focal deficits, no new deficit Musculoskeletal: normal tone, normal strength, no muscle wasting Hospitalist Results - Labs Result Diagrams: 10/16/19 21:43 10/16/19 21:43 Lab results: WBC 5.6 thou/uL (4.8-10.8) 10/16/19 21:43 Hgb 12.8 g/dL (12.0-16.0) 10/16/19 21:43 Hct 38.9 % (36.0-47.0) 10/16/19 21:43 MCV 94.5 fL (78.0-98.0) 10/16/19 21:43 Plt Count 148 thou/uL (130-400) 10/16/19 21:43 Neutrophils % 77.5 % (42.0-75.0) H 10/16/19 21:43 Sodium 140 mmol/L (136-145) 10/16/19 21:43 Potassium 4.3 mmol/L (3.5-5.1) 10/16/19 21:43 Chloride 107 mmol/L (98-107) 10/16/19 21:43 Carbon Dioxide 24 mmol/L (23-31) 10/16/19 21:43 BUN 41 mg/dL (9.8-20.1) H 10/16/19 21:43 Creatinine 1.56 mg/dL (0.6-1.1) H 10/16/19 21:43 Glucose 116 mg/dL (83-110) H 10/16/19 21:43 Calcium 9.3 mg/dL (7.8-10.44) 10/16/19 21:43 Total Bilirubin 0.3 mg/dL (0.2-1.2) 10/16/19 21:43 AST 38 U/L (5-34) H 10/16/19 21:43 ALT 28 U/L (8-55) 10/16/19 21:43 Alkaline Phosphatase 142 U/L (40-110) H 10/16/19 21:43 Serum Total Protein 6.2 g/dL (6.0-8.3) 10/16/19 21:43 Albumin 3.4 g/dL (3.4-4.8) 10/16/19 21:43 Hospitalist H&P A/P - Plan Plan: This is an 79 year old female with history of cirrhosis from methotrexate, GERD who presents with abdominal wound drainage from her hernia Abdominal wound dehiscence/drainage near hernia site - wound culture sent. Labs show no evidence of infection currently - will check CT abdomen -surgery consult for possible closure Cirrhosis - resume home lasix/spironolactone/rifaxmine Psoriasis - previously on methotrexate - on topical steroids DVT prophylaxis: SCDS Code status: full code
[2019-10-17] MEDS ORDERED: Clobetasol 0.05% Cream 15 gm Tube TOP PRN (08:31)
--- NOTE | 2019-10-17 08:41 | PDOC.FMACP ---
Advance Care Planning - Note Participants: patient Summary: Advanced Care Planning was discussed. Pt wishes to be full code, does not want to be a vegetable however if she has no chance Time Spent (mins): 20
[2019-10-17] MEDS ORDERED: Non-Formulary Item 1 EACH (Multivit-Min/Fa/Lycopen/Lutein [Centrum Silver Tablet] 1 EACH) PO SCH (09:00)
[2019-10-17] MEDS ORDERED: Non-Formulary Item 1 EACH (Spironolactone [Spironolactone] 50 MG) PO SCH (09:00)
[2019-10-17] MEDS ORDERED: ERGOCALCIFEROL PO SCH (09:00)
[2019-10-17] MEDS ORDERED: Non-Formulary Item 1 EACH (Zinc [Zinc] 50 MG) PO SCH (09:00)
[2019-10-17] MEDS ORDERED: Mupirocin 2% Ointment 22 GM Tube TOP SCH (09:00)
[2019-10-17] MEDS: Furosemide 40 MG TAB PO SCH (10:14)
[2019-10-17] MEDS: Calcium Carbonate 600 MG TAB PO SCH (10:14)
[2019-10-17] MEDS: Spironolactone 25 MG TAB PO SCH (10:14)
[2019-10-17] MEDS: Rifaximin 550 MG TAB PO SCH ×2 (10:15→20:50)
[2019-10-17] MEDS: Multivitamin W/ Minerals 1 TAB PO SCH (10:15)
[2019-10-17] MEDS: Pregabalin 75 MG CAP PO SCH ×2 (10:16→20:50)
--- NOTE | 2019-10-17 10:52 | CT ---
CT Abdomen Pelvis W Con: 10/17/2019 8:23 AM CLINICAL INFORMATION: Umbilical hernia with open incision COMPARISON: None. TECHNIQUE: Multiple contiguous axial images were obtained and a CT of the abdomen and pelvis with IV contrast. Oral contrast was administered. Coronal and sagittal reformats were performed. FINDINGS: Lower Chest: within normal limits. Abdomen: Liver: Cirrhotic without focal lesions Bile Ducts: Normal caliber. Gallbladder: Absent Pancreas: within normal limits. Spleen: within normal limits. Adrenals: within normal limits. Kidneys: Bilateral nonobstructing kidney stones measuring up to 1.3 cm in size Pelvis: Reproductive Organs: Status post hysterectomy. Ureters: within normal limits. Bladder: within normal limits. Peritoneum: There is a small amount of ascites. Bowel: Normal caliber. Mesentery and Retroperitoneum: No enlarged mesenteric or retroperitoneal lymph nodes. Vessels: Normal. Abdominal Wall: There is a wound in the periumbilical region. Low density fluid is seen adjacent to t he wound and drain which likely freely communicates with the peritoneal fluid. No bowel is seen within the umbilical hernia. No significant fascial defect is seen in the periumbilical fascia. Bones: Within normal limits IMPRESSION: 1. Umbilical hernia as above without significant fascial defect. This hernia is likely a consequence of a very small hole communicating with the patient's usual large amount of peritoneal fluid. 2. Bilateral kidney stones 3. Cirrhosis with sequelae of portal hypertension
[2019-10-17] MEDS: Mupirocin 2% Ointment 22 GM Tube TOP SCH ×2 (11:33→20:47)
[2019-10-17] MEDS: Zinc Sulfate 220 MG CAP PO SCH ×3 (11:33→20:51)
[2019-10-17] MEDS ORDERED: Iopamidol-370 76% 500 ML 1 ML ONE (13:58)
--- NOTE | 2019-10-17 17:53 | CON ---
DATE OF CONSULTATION: 10/17/2019 CHIEF COMPLAINT: Cirrhosis with ascites and umbilical hernia. HISTORY OF PRESENT ILLNESS: This is an 79-year-old female with a history of intractable ascites, getting weekly paracentesis. She had seen me in the office with an umbilical wound and an eschar. She had a small umbilical defect, but a large amount of skin stretched out over this hernia. She had had a previous scan showing no intestine or colon in the defect. She now presents after being at home and having significant drainage of ascites from this eschar. She has no pain. No fever or chills. No dizziness. The drainage appears to have stopped now. CT scan again shows ascites with no bowel in the defect. MEDICAL HISTORY: Otherwise includes psoriasis. SURGICAL HISTORY: Neck melanoma, cataract, cholecystectomy, and hysterectomy. MEDICATIONS: See list. ALLERGIES: CELECOXIB, ETANERCEPT, LATEX, AND ROSUVASTATIN. REVIEW OF SYSTEMS: Otherwise negative. PHYSICAL EXAMINATION: VITAL SIGNS: Blood pressure is 100/64, pulse 77, respirations 20, and temperature 98.0. HEENT: Sclerae are anicteric. Oropharynx clear. NECK: No lymphadenopathy. CHEST: Clear. HEART: Regular rate. ABDOMEN: Soft, nontender with fluid wave. There is an ostomy bag over this small wound to the umbilicus. There was no obvious open wound. There was no ongoing drainage. LABORATORY DATA: Sodium 140, potassium 4.3, creatinine 1.56. Bilirubin is normal. AST is elevated at 38, alkaline phosphatase 142. Repeat creatinine today is 1.23. CT scan, umbilical hernia without significant fascial defect. ASSESSMENT: Small umbilical hernia in setting of intractable ascites and cirrhosis, although her bilirubin is normal and her platelet count is normal, so she has no signs of acute liver failure. PLAN: We will discuss with Dr. Kramer whether she would be better off at a transplant center or if we can do something here. Now that her ascites drainage has stopped, I am not sure if we have to do anything; however, no arreola for operation, we will decide in the next 24 to 48 hours. Job ID: [id number]
[2019-10-17] MEDS ORDERED: Non-Formulary Item 1 EACH (Pregabalin [Lyrica] 150 MG) PO SCH (21:00)
[2019-10-18 05:51] LABS: Hemoglobin 11.4 g/dL (12.0-16.0); Hypochromia SLIGHT = 6-15 cells (100X) (0-5/hpf); Lymphocytes 13 % (21-51); MDiff Complete? YES; Mean Corpuscular HGB CONC 34.3 g/dL (32.0-36.0); Mean Corpuscular Hemoglobin 31.8 pg (27.0-31.0); Mean Corpuscular Volume 92.8 fL (78.0-98.0); Mean Platelet Volume 10.3 fL (7.4-10.4); Monocytes 5 % (0-10); Neutrophil 82 % (42-75); Platelet Count 141 thou/uL (130-400); Platelet Morphology Comment Appears Adequate; RBC Distribution Width 11.4 % (11.5-14.5); White Blood Cell (WBC) Count 5.4 thou/uL (4.8-10.8)
[2019-10-18 06:04] LABS: Anion Gap 10 mmol/L (10-20); BUN (Urea Nitrogen) 31 mg/dL (9.8-20.1); Calc. Creatinine Clearance 42 mL/min (70-130); Calcium 8.5 mg/dL (7.8-10.44); Carbon Dioxide 24 mmol/L (23-31); Chloride 107 mmol/L (98-107); Estimated GFR-MDRD 45; Glucose 107 mg/dL (83-110); Potassium 4.4 mmol/L (3.5-5.1); Sodium 137 mmol/L (136-145)
[2019-10-18] MEDS: Zinc Sulfate 220 MG CAP PO SCH ×3 (09:10→20:23)
[2019-10-18] MEDS: Acetaminophen 500 MG TAB PO PRN (09:13)
[2019-10-18] MEDS: Rifaximin 550 MG TAB PO SCH ×2 (09:14→20:23)
[2019-10-18] MEDS: Pregabalin 75 MG CAP PO SCH ×2 (09:14→20:22)
[2019-10-18] MEDS: Multivitamin W/ Minerals 1 TAB PO SCH (09:15)
[2019-10-18] MEDS: Mupirocin 2% Ointment 22 GM Tube TOP SCH ×2 (09:15→19:50)
[2019-10-18] MEDS: Furosemide 40 MG TAB PO SCH (09:15)
[2019-10-18] MEDS: Calcium Carbonate 600 MG TAB PO SCH (09:15)
[2019-10-18] MEDS: Spironolactone 25 MG TAB PO SCH (09:16)
--- NOTE | 2019-10-18 10:52 | PDOC.HOSPP ---
- Subjective Encounter Date: 10/18/19 Subjective: New new complaints NPO for the procedure - Objective Vital Signs & Weight: Vital Signs (12 hours) Temp Pulse Resp BP Pulse Ox 10/18/19 07:59 98.1 F 72 16 98/62 94 L Weight Admit Weight 149 lb 12.8 oz Weight 149 lb 12.8 oz I&O: 10/17/19 10/18/19 10/19/19 06:59 06:59 06:59 Intake Total 0 850 Output Total 700 Balance -700 850 Result Diagrams: 10/18/19 05:27 10/18/19 05:27 Hospitalist ROS - Medication Medications: Active Medications Generic Name Dose Route Start Last Admin Trade Name Freq PRN Reason Stop Dose Admin Acetaminophen 500 mg 10/17/19 08:28 10/18/19 09:13 Tylenol PO 500 mg BIDPRN PRN Administration Headache/Fever or Pain Calcium Carbonate 600 mg 10/17/19 09:00 10/18/19 09:15 Caltrate PO Not Given DAILY [facility] Furosemide 40 mg 10/17/19 09:00 10/18/19 09:15 Lasix PO Not Given DAILY [facility] Iron/Minerals/Multivitamins 1 tab 10/17/19 09:00 10/18/19 09:15 Theragran M PO Not Given DAILY [facility] Mupirocin 0 gm 10/17/19 09:00 10/18/19 09:15 Bactroban 2% Ointment TOP Not Given BID AURELIA [Vitamin D2] 88 Unit 0 each 10/17/19 09:00 10/18/19 09:14 PO Not Given DAILY [facility] Pregabalin 75 mg 10/17/19 09:00 10/18/19 09:14 Lyrica PO Not Given DAILY A[facility] Pregabalin 150 mg 10/17/19 21:00 10/17/19 20:50 Lyrica PO 150 mg HS AURELIA Administration Rifaximin 550 mg 10/17/19 09:00 10/18/19 09:14 Xifaxan PO Not Given BID AURELIA Spironolactone 50 mg 10/17/19 08:00 10/18/19 09:16 Aldactone PO Not Given QAM-WM AURELIA Triamcinolone Acetonide 0 gm 10/17/19 09:00 10/18/19 09:14 Kenalog 0.1% Ointment TOP Not Given BID AURELIA Zinc Sulfate 220 mg 10/17/19 09:00 10/18/19 09:10 Zinc Sulfate PO Not Given TID AURELIA - Exam General Appearance: NAD Eye: PERRL ENT: normocephalic atraumatic Neck: supple, no JVD Heart: RRR Respiratory: CTAB Gastrointestinal: soft Neurological: cranial nerve grossly intact, no focal deficits Hosp A/P (1) Abdominal hernia Status: Acute (2) Liver cirrhosis Code(s): K74.60 - UNSPECIFIED CIRRHOSIS OF LIVER Status: Acute (3) Ascites Code(s): R18.8 - OTHER ASCITES Status: Acute - Plan Liver cirrhosis is compensated with no evidence of acute hepatic failure. Plan for surgical intervention to address her abdominal wound and possible place a drain today.
[2019-10-18] MEDS ORDERED: Rocuronium Bromide 10 MG/ML (10ML VIAL) ONE (12:52)
[2019-10-18] MEDS ORDERED: Ondansetron PF 4 MG/2 ML Vial ONE (12:52)
[2019-10-18] MEDS ORDERED: Glycopyrrolate 0.2 MG/ML 5 ML SYRINGE ONE (12:52)
[2019-10-18] MEDS ORDERED: Lidocaine 1% PF 5 ML VIAL ONE (12:52)
[2019-10-18] MEDS ORDERED: PHENYLEPHRINE-NS 100 MCG/ML 10 ML SYRINGE ONE (12:52)
[2019-10-18] MEDS ORDERED: PROPOFOL 200 MG/20 ML VIAL ONE (12:52)
[2019-10-18] MEDS ORDERED: Lidocaine 1% w/Epinephrine 1:100K 20 ML VIAL ONE (14:00)
[2019-10-18] MEDS ORDERED: Heparin 10,000 UNITS/1 ML VIAL ONE (14:00)
[2019-10-18] MEDS ORDERED: Bupivacaine 0.25% HCL 30 ML VIAL ONE (14:00)
[2019-10-18] MEDS ORDERED: Fentanyl 100 MCG/2 ML VIAL ONE ×2 (14:05→16:50)
[2019-10-18] MEDS ORDERED: Morphine 2 MG/ML SYRINGE SLOW IVP PRN (16:18)
[2019-10-18] MEDS ORDERED: Morphine 4 MG/ML VIAL SLOW IVP PRN (16:18)
[2019-10-18] MEDS ORDERED: Morphine 4 MG/ML VIAL ONE (16:43)
[2019-10-18] MEDS ORDERED: Morphine Sulfate 2 MG/ML SYRINGE SLOW IVP PRN (16:48)
[2019-10-18] MEDS ORDERED: Promethazine HCl 25 MG/ML VIAL IM PRN (16:48)
[2019-10-18] MEDS ORDERED: Ondansetron HCl/PF 4 MG/2 ML Vial IVP PRN (16:48)
[2019-10-18] MEDS ORDERED: Promethazine HCl 25 MG/ML VIAL SLOW IVP PRN (16:48)
[2019-10-18] MEDS ORDERED: PACU-Morphine 4MG/ML VIAL SLOW IVP PRN (16:48)
[2019-10-18] MEDS ORDERED: Morphine 2 MG/ML SYRINGE ONE (16:56)
[2019-10-18] MEDS: HYDROcodone/Acetaminophen 7.5/325 mg Tablet PO PRN (20:22)
--- NOTE | 2019-10-18 21:29 | CON ---
DATE OF CONSULTATION: HISTORY OF PRESENT ILLNESS: Ms. Melendez is an 79-year-old female, who has cirrhosis secondary to suspected long-term effect of methotrexate. Extensive workup was negative. She had been seen in [place] at [facility] Hepatology, they considered transjugular biopsy, but ultimately the patient decided against that. Hepatology has been concerned there maybe some component of right heart failure. She has had a pretty stable protein and albumin despite problems with refractory ascites requiring weekly paracentesis. Recently, she presented and had an evidence of eschar and thinning of the skin over umbilical hernia. She is referred to General Surgery to consider repair. As it was really too high risk for elective repair, she was sent to Wound Care. The patient, however, presented to the emergency room as the skin and the scab at umbilicus had broken open on the and was spraying out like a water sprinkler for the yard. Since being here, she had no fever, or chills. No nausea, or vomiting. Dr. Ureña hydrated her and after concerning all options, it was decided to take her for a surgical repair of the hernia with no mesh and leaving the drain in place, so we can drain her abdomen periodically over the next week or two so that hopefully we will keep pressure down on the repair and that this can heal. She is going to the operating room right now. PAST MEDICAL HISTORY: Cirrhosis, psoriasis, ascites, muscle wasting. PAST SURGICAL HISTORY: Neck surgery, lithotripsy for bladder stones, melanoma removed in the OR in the past, cataract surgery, cholecystectomy, hysterectomy. FAMILY HISTORY: Negative for colorectal cancer or liver disease. SOCIAL HISTORY: Negative for alcohol or tobacco. REVIEW OF SYSTEMS: Negative for confusion, melena, hematochezia, hematemesis, fever, or chills. PHYSICAL EXAMINATION: GENERAL: The patient is resting in bed. She has severe temporal wasting. HEENT: Conjunctivae and sclerae clear. Oropharynx, no lesions. NECK: Supple. No adenopathy. LUNGS: Clear. ABDOMEN: There is dressing over the umbilical hernia. She has a colostomy bag with fluid draining out and that pretty much stopped in the last day or two. Her edema in her legs has completely gone. LABORATORY STUDIES: White count 5.4, hemoglobin 11.4, platelet count 141, electrolytes normal. Sodium 137, potassium 4.4, chloride 107, bicarb 24, BUN and creatinine 31 and 1.15. AST and ALT were 38 and 20 yesterday, alkaline phosphatase 142, and bilirubin 0.9. ASSESSMENT: 1. Cirrhosis of unclear etiology, likely from methotrexate. Cannot rule out component of heart failure. She had pre-preserved albumin through all this. 2. Refractory ascites requiring paracenteses weekly or every other week. 3. Recent development of eschar over thin-skinned umbilical hernia, now this has ruptured. PLAN: 1. Agree with Dr. Ureña's plan to operate. 2. We would hold off on diuretics for now and use albumin as needed. To maintain renal perfusion, we will check renal function daily. If she starts to develop any signs of prerenal azotemia or hepatorenal failure, could consider octreotide and midodrine if needed. 3. We will need periodic paresthesias over the next several weeks, maybe even daily or every other day to keep pressure down on the healed hernia site. Job ID: [id number]
[2019-10-19 06:04] LABS: Eosinophils 2 % (0-10); Hemoglobin 11.5 g/dL (12.0-16.0); Lymphocytes 17 % (21-51); MDiff Complete? YES; Mean Corpuscular HGB CONC 31.4 g/dL (32.0-36.0); Mean Corpuscular Hemoglobin 30.1 pg (27.0-31.0); Mean Corpuscular Volume 95.9 fL (78.0-98.0); Mean Platelet Volume 9.9 fL (7.4-10.4); Monocytes 12 % (0-10); Neutrophil 69 % (42-75); Platelet Count 136 thou/uL (130-400); Platelet Morphology Comment Appears Adequate; RBC Distribution Width 11.4 % (11.5-14.5); Red Blood Cell (RBC) Count 3.82 mill/uL (4.20-5.40); White Blood Cell (WBC) Count 6.1 thou/uL (4.8-10.8)
[2019-10-19 06:06] LABS: Anion Gap 11 mmol/L (10-20); BUN (Urea Nitrogen) 31 mg/dL (9.8-20.1); Calc. Creatinine Clearance 38 mL/min (70-130); Calcium 8.5 mg/dL (7.8-10.44); Carbon Dioxide 23 mmol/L (23-31); Chloride 107 mmol/L (98-107); Estimated GFR-MDRD 40; Glucose 112 mg/dL (83-110); Potassium 4.9 mmol/L (3.5-5.1); Sodium 136 mmol/L (136-145)
[2019-10-19] MEDS: HYDROcodone/Acetaminophen 7.5/325 mg Tablet PO PRN ×3 (06:09→19:13)
[2019-10-19] MEDS: Furosemide 40 MG TAB PO SCH (08:21)
[2019-10-19] MEDS: Rifaximin 550 MG TAB PO SCH ×2 (08:22→20:45)
[2019-10-19] MEDS: Multivitamin W/ Minerals 1 TAB PO SCH (08:22)
[2019-10-19] MEDS: Pregabalin 75 MG CAP PO SCH ×2 (08:22→20:45)
[2019-10-19] MEDS: Calcium Carbonate 600 MG TAB PO SCH (08:23)
[2019-10-19] MEDS: Mupirocin 2% Ointment 22 GM Tube TOP SCH ×2 (08:24→20:56)
[2019-10-19] MEDS: Zinc Sulfate 220 MG CAP PO SCH ×3 (08:27→20:50)
--- NOTE | 2019-10-19 15:17 | PRG ---
DATE OF SERVICE: 10/19/2019 SUBJECTIVE: Ms. Melendez is doing well. She has minimal pain. She is tolerating regular diet without difficulty. She has not been out of bed yet. OBJECTIVE: VITAL SIGNS: She is afebrile. Vital signs are stable. ABDOMEN: Soft. She does have fluid wave. Her wound is healing well. There is no significant seroma in the area of hernia repair. ASSESSMENT: Postop day 1, umbilical hernia repair without mesh and peritoneal dialysis catheter placement. PLAN: She is going to need frequent paracentesis in order for her hernia and peritoneal lining to seal. Talking to the daughter, it sounds like once a week, she was still having tense ascites at times. I would recommend more often that. We will discuss with Dr. Kramer. She will probably need to stay through the weekend for closer observation. Job ID: [id number]
--- NOTE | 2019-10-19 15:43 | OP ---
DATE OF PROCEDURE: 10/18/2019 PREOPERATIVE DIAGNOSES: 1. Cirrhosis with ascites. 2. Small umbilical hernia. 3. Nonhealing wound with active ascites leakage, umbilicus. POSTOPERATIVE DIAGNOSES: 1. Cirrhosis with ascites. 2. Small umbilical hernia. 3. Nonhealing wound with active ascites leakage, umbilicus. PROCEDURE PERFORMED: 1. Open umbilical hernia repair without mesh. 2. Laparoscopic placement of peritoneal dialysis catheter. ANESTHESIA: General. ESTIMATED BLOOD LOSS: Minimal. COMPLICATIONS: None. FINDINGS: There is a moderate amount of ascites in the abdomen. DESCRIPTION OF PROCEDURE: The patient was taken to the operating room and laid supine on the operating room table. After general anesthetic was obtained, the abdomen was prepped and draped in a sterile fashion. Left subcostal 5 mm Optiview trocar was placed in usual fashion, and high-flow pneumoperitoneum was obtained. A 5 mm port was placed in the upper midline of abdomen, 8 mm port was placed to the left of the midline, to the left of her umbilicus. It was tunneled down and then through the muscle below. The peritoneal dialysis catheter was threaded through the trocar and the trocar pulled out. The inner cuff was placed just above the external oblique fascia. The outside cuff was ended up just below the skin. All port sites were infiltrated using local anesthetic. The fascial defect was closed using GraNee needle and 0 Vicryl ties. All ports were removed under camera visualization. Pneumoperitoneum was let down. Elliptical incision was used to ellipse out the chronic open wound overlying the umbilical defect. The skin was removed and discarded. The seroma tissue and peritoneal lining were excised from the area of the umbilical defect. The umbilical defect was closed using running V-Loc suture. The edges of the peritoneum where it was dissected off the fascia were cauterized due to bleeding. The subcutaneous tissues were closed using 3-0 Vicryl. #10 drain brought out through a stab incision and left in the space. Skin and all other incisions were all closed using 4-0 Monocryl and Dermabond. The patient was sent to Recovery in stable condition. She will need frequent paracentesis postop in order for her peritoneal lining to seal and this hernia not to recur. Job ID: [id number]
--- NOTE | 2019-10-19 17:46 | PDOC.HOSPP ---
- Subjective Encounter Date: 10/19/19 Subjective: POD 1 Her pain is controlled. Minimal fluid in the drain. Tolerating liquids. - Objective Vital Signs & Weight: Vital Signs (12 hours) Temp Pulse Resp BP Pulse Ox 10/19/19 08:00 98 10/19/19 07:57 98.3 F 78 16 93/54 L 98 Weight Admit Weight 149 lb 12.8 oz Weight 149 lb 12.8 oz I&O: 10/18/19 10/19/19 10/20/19 06:59 06:59 06:59 Intake Total 850 480 Balance 850 480 Result Diagrams: 10/19/19 05:19 10/19/19 05:19 Hospitalist ROS - Medication Medications: Active Medications Generic Name Dose Route Start Last Admin Trade Name Freq PRN Reason Stop Dose Admin Acetaminophen 500 mg 10/17/19 08:28 10/18/19 09:13 Tylenol PO 500 mg BIDPRN PRN Administration Headache/Fever or Pain Hydrocodone Bitart/Acetaminophen 1 tab 10/18/19 16:18 10/19/19 13:12 [place] 7.5/325 PO 1 tab Q6H PRN Administration Mild Pain (1-3) Calcium Carbonate 600 mg 10/17/19 09:00 10/19/19 08:23 Caltrate PO 600 mg DAILY AURELIA Administration Furosemide 40 mg 10/17/19 09:00 10/19/19 08:21 Lasix PO 40 mg DAILY AURELIA Administration Iron/Minerals/Multivitamins 1 tab 10/17/19 09:00 10/19/19 08:22 Theragran M PO 1 tab DAILY AURELIA Administration Mupirocin 0 gm 10/17/19 09:00 10/19/19 08:24 Bactroban 2% Ointment TOP 1 applic BID AURELIA Administration [Vitamin D2] 88 Unit 0 each 10/17/19 09:00 10/19/19 08:28 PO Not Given DAILY AURELIA Pregabalin 75 mg 10/17/19 09:00 10/19/19 08:22 Lyrica PO 75 mg DAILY AURELIA Administration Pregabalin 150 mg 10/17/19 21:00 10/18/19 20:22 Lyrica PO 150 mg HS AURELIA Administration Rifaximin 550 mg 10/17/19 09:00 10/19/19 08:22 Xifaxan PO 550 mg BID AURELIA Administration Triamcinolone Acetonide 0 gm 10/17/19 09:00 10/19/19 08:27 Kenalog 0.1% Ointment TOP 1 applic BID AURELIA Administration Zinc Sulfate 220 mg 10/17/19 09:00 10/19/19 16:11 Zinc Sulfate PO 220 mg TID AURELIA Administration - Exam General Appearance: NAD, awake alert Eye: PERRL, anicteric sclera ENT: normocephalic atraumatic, no oropharyngeal lesions Neck: supple Heart: RRR Respiratory: CTAB Gastrointestinal: soft Neurological: no focal deficits Hosp A/P (1) Abdominal hernia Status: Acute (2) Liver cirrhosis Code(s): K74.60 - UNSPECIFIED CIRRHOSIS OF LIVER Status: Acute (3) Ascites Code(s): R18.8 - OTHER ASCITES Status: Acute - Plan Postoperative day 1 of hernia repair and placement of a drain. The patient is doing well postoperatively. No evidence of confusion or hepatic encephalopathy. Her vital signs are stable. Her creatinine level is stable. We will continue to monitor kidney function closely. Appreciate gastroenterology and surgery services.
--- NOTE | 2019-10-19 19:16 | PRG ---
DATE OF SERVICE: 10/19/2019 SUBJECTIVE: Ms. Melendez is postoperative day 1 from repair of her umbilical hernia. OBJECTIVE: VITAL SIGNS: Temperature is 98.3 this morning, pulse 78, blood pressure is 93/54 this morning, blood pressure 113/74 at 1144 hours. ABDOMEN: She has a drain in place on the right abdomen. I guess this is under the skin. There looks like a dialysis catheter, some type of intraperitoneal catheter, on the left. Abdomen has no shifting dullness. No fluid wave. LABORATORY DATA: Today, white count 6.1, hemoglobin 11.5, platelet count 163. Sodium 136, potassium 4.6, BUN and creatinine 31 and 1.27. Albumin was 3.4 on the 10th. ASSESSMENT: 1. Cirrhosis. 2. Ruptured umbilical hernia. 3. Leakage of peritoneal fluid. 4. History of hepatic encephalopathy, stable presently. 5. Stable renal function. RECOMMENDATIONS: 1. Start albumin 25 g IV q.8. 2. We will ask the nurses to remove in a sterile fashion 4 L tomorrow of her peritoneal fluid. Job ID: [id number]
[2019-10-19] MEDS: Albumin 25% 25 GM/100 ML BOT IVPB SCH (20:46)
[2019-10-20] MEDS: Albumin 25% 25 GM/100 ML BOT IVPB SCH ×3 (03:11→20:07)
[2019-10-20] MEDS: HYDROcodone/Acetaminophen 7.5/325 mg Tablet PO PRN ×2 (03:13→10:44)
[2019-10-20 05:55] LABS: ALT (SGPT) 11 U/L (8-55); AST (SGOT) 24 U/L (5-34); Albumin 3.1 g/dL (3.4-4.8); Alkaline Phosphatase 94 U/L (40-110); Anion Gap 9 mmol/L (10-20); BUN (Urea Nitrogen) 33 mg/dL (9.8-20.1); Bilirubin, Direct 0.5 mg/dL (0.1-0.3); Bilirubin, Total 0.9 mg/dL (0.2-1.2); Calc. Creatinine Clearance 34 mL/min (70-130); Calcium 8.6 mg/dL (7.8-10.44); Carbon Dioxide 24 mmol/L (23-31); Chloride 104 mmol/L (98-107); Estimated GFR-MDRD 36; Globulin 2.1 g/dL (2.4-3.5); Glucose 117 mg/dL (83-110); Protein, Total 5.2 g/dL (6.0-8.3); Sodium 133 mmol/L (136-145)
[2019-10-20 06:41] LABS: Band 4 % (5-11); Eosinophils 6 % (0-10); Hemoglobin 10.4 g/dL (12.0-16.0); Lymphocytes 11 % (21-51); MDiff Complete? YES; Mean Corpuscular HGB CONC 33.2 g/dL (32.0-36.0); Mean Corpuscular Hemoglobin 31.3 pg (27.0-31.0); Mean Corpuscular Volume 94.3 fL (78.0-98.0); Mean Platelet Volume 9.7 fL (7.4-10.4); Monocytes 8 % (0-10); Neutrophil 71 % (42-75); Platelet Count 119 thou/uL (130-400); Platelet Morphology Comment Appears Decreased; RBC Distribution Width 11.3 % (11.5-14.5); Red Blood Cell (RBC) Count 3.33 mill/uL (4.20-5.40); White Blood Cell (WBC) Count 5.4 thou/uL (4.8-10.8)
[2019-10-20] MEDS: Polyethylene Glycol 3350 17 GM Packet PO SCH (08:03)
[2019-10-20] MEDS: Multivitamin W/ Minerals 1 TAB PO SCH (08:03)
[2019-10-20] MEDS: Rifaximin 550 MG TAB PO SCH ×2 (08:03→20:10)
[2019-10-20] MEDS: Zinc Sulfate 220 MG CAP PO SCH ×3 (08:03→20:10)
[2019-10-20] MEDS: Calcium Carbonate 600 MG TAB PO SCH (08:04)
[2019-10-20] MEDS: Pregabalin 75 MG CAP PO SCH ×2 (08:04→20:08)
[2019-10-20] MEDS: Mupirocin 2% Ointment 22 GM Tube TOP SCH ×2 (08:05→20:14)
--- NOTE | 2019-10-20 13:45 | PDOC.HOSPP ---
- Subjective Encounter Date: 10/20/19 Subjective: Patient was seen and examined. She has no new complaints. Underwent peritoneal fluid draining today without complications. She is tolerating her diet and ambulating with assistance. - Objective Vital Signs & Weight: Vital Signs (12 hours) Temp Pulse Resp BP Pulse Ox 10/20/19 08:00 95 10/20/19 07:33 98.2 F 75 18 100/61 95 10/20/19 03:46 98.4 F 78 18 113/67 96 Weight Admit Weight 149 lb 12.8 oz Weight 149 lb 12.8 oz I&O: 10/19/19 10/20/19 10/21/19 06:59 06:59 06:59 Intake Total 1170 240 Output Total 5 Balance 1165 240 Result Diagrams: 10/20/19 04:59 10/20/19 04:59 Hospitalist ROS - Medication Medications: Active Medications Generic Name Dose Route Start Last Admin Trade Name Freq PRN Reason Stop Dose Admin Acetaminophen 500 mg 10/17/19 08:28 10/18/19 09:13 Tylenol PO 500 mg BIDPRN PRN Administration Headache/Fever or Pain Hydrocodone Bitart/Acetaminophen 1 tab 10/18/19 16:18 10/20/19 10:44 [place] 7.5/325 PO 1 tab Q6H PRN Administration Mild Pain (1-3) Albumin Human 25 gm 10/19/19 20:00 10/20/19 11:51 Albumin 25% IVPB 10/22/19 20:01 25 gm Q8H AURELIA Administration Calcium Carbonate 600 mg 10/17/19 09:00 10/20/19 08:04 Caltrate PO 600 mg DAILY AURELIA Administration Furosemide 40 mg 10/17/19 09:00 10/19/19 08:21 Lasix PO 40 mg DAILY AURELIA Administration Iron/Minerals/Multivitamins 1 tab 10/17/19 09:00 10/20/19 08:03 Theragran M PO 1 tab DAILY AURELIA Administration Mupirocin 0 gm 10/17/19 09:00 10/20/19 08:05 Bactroban 2% Ointment TOP 1 applic BID AURELIA Administration [Vitamin D2] 88 Unit 0 each 10/17/19 09:00 10/20/19 08:05 PO Not Given DAILY AURELIA Polyethylene Glycol 17 gm 10/20/19 09:00 10/20/19 08:03 Miralax PO 17 gm DAILY AURELIA Administration Pregabalin 75 mg 10/17/19 09:00 10/20/19 08:04 Lyrica PO 75 mg DAILY AURELIA Administration Pregabalin 150 mg 10/17/19 21:00 10/19/19 20:45 Lyrica PO 150 mg HS AURELIA Administration Rifaximin 550 mg 10/17/19 09:00 10/20/19 08:03 Xifaxan PO 550 mg BID AURELIA Administration Sodium Chloride 10 ml 10/19/19 21:00 10/20/19 08:05 Flush - Normal Saline IVF 10 ml Q12HR AURELIA Administration Triamcinolone Acetonide 0 gm 10/17/19 09:00 10/20/19 08:05 Kenalog 0.1% Ointment TOP 1 applic BID AURELIA Administration Zinc Sulfate 220 mg 10/17/19 09:00 10/20/19 08:03 Zinc Sulfate PO 220 mg TID AURELIA Administration - Exam General Appearance: NAD, awake alert Eye: PERRL, anicteric sclera ENT: normocephalic atraumatic, no oropharyngeal lesions Neck: supple, no JVD Heart: RRR, no murmur, no gallops, no rubs Respiratory: CTAB Gastrointestinal: soft Neurological: cranial nerve grossly intact, no focal deficits Hosp A/P (1) Abdominal hernia Status: Acute (2) Liver cirrhosis Code(s): K74.60 - UNSPECIFIED CIRRHOSIS OF LIVER Status: Acute (3) Ascites Code(s): R18.8 - OTHER ASCITES Status: Acute - Plan Postoperative day 2 of hernia repair and placement of a drain. The patient is feeling well. Her creatinine level worsened since yesterday and she was started on IV albumin per GI. Continue peritoneal fluid drainage per GI recommendations. No evidence of confusion or hepatic encephalopathy. Her vital signs are stable. PT & OT Evaluation.
--- NOTE | 2019-10-20 14:25 | PDOC.GSPN ---
Surgery Progress Note: Subj - Subjective Narrative: She is complaining of incisional pain. Fluid drained off this am. Surgery Progress Note: Obj - Vital signs Vital signs: Vital Signs - Most Recent Temp Pulse Resp BP Pulse Ox 98.2 F 75 18 100/61 95 10/20/19 07:33 10/20/19 07:33 10/20/19 07:33 10/20/19 07:33 10/20/19 08:00 - Physical Exam General: no distress Wound: healing well (The hernia cavity is decompressed. Drain serosang) Surgery Progress Note: Results - Labs Result Diagrams: 10/20/19 04:59 10/20/19 04:59 Lab results: Laboratory Results - last 24 hr 10/20/19 10/20/19 04:59 04:59 WBC 5.4 RBC 3.33 L Hgb 10.4 L Hct 31.4 L MCV 94.3 MCH 31.3 H MCHC 33.2 RDW 11.3 L Plt Count 119 L MPV 9.7 Neutrophils % (Manual) 71 Band Neuts % (Manual) 4 L Lymphocytes % (Manual) 11 L Monocytes % (Manual) 8 Eosinophils % (Manual) 6 Plt Morphology Comment Appears Decreased L Sodium 133 L Potassium 4.0 Chloride 104 Carbon Dioxide 24 Anion Gap 9 L BUN 33 H Creatinine 1.41 H Estimated GFR (MDRD) 36 Glucose 117 H Calcium 8.6 Total Bilirubin 0.9 Direct Bilirubin 0.5 H AST 24 ALT 11 Alkaline Phosphatase 94 Serum Total Protein 5.2 L Albumin 3.1 L Globulin 2.1 L Albumin/Globulin Ratio 1.5 Surgery Progress Note: A/P - Problem (1) Liver cirrhosis Current Visit: Yes Code(s): K74.60 - UNSPECIFIED CIRRHOSIS OF LIVER Status: Acute - Plan Plan: POD 2 UH repair, drain placement -plan ascites drainage, more aggressive for the next week -OK to ambulate -pain well controlled -I'll remove the SHIMA drain on Wednesday -Dr. Mccurdy covering the weekend prn.
[2019-10-20] MEDS: (Apremilast [Otezla] 30 MG) PO SCH (20:08)
[2019-10-20] MEDS: Acetaminophen 500 MG TAB PO PRN (22:23)
[2019-10-21] MEDS: Albumin 25% 25 GM/100 ML BOT IVPB SCH ×2 (03:57→11:50)
[2019-10-21] MEDS: HYDROcodone/Acetaminophen 7.5/325 mg Tablet PO PRN ×3 (03:58→20:42)
[2019-10-21 05:48] LABS: ALT (SGPT) 10 U/L (8-55); AST (SGOT) 25 U/L (5-34); Albumin 3.7 g/dL (3.4-4.8); Alkaline Phosphatase 98 U/L (40-110); Bilirubin, Direct 0.6 mg/dL (0.1-0.3); Bilirubin, Total 1.1 mg/dL (0.2-1.2); Protein, Total 5.4 g/dL (6.0-8.3)
[2019-10-21 05:53] LABS: Anion Gap 12 mmol/L (10-20); BUN (Urea Nitrogen) 28 mg/dL (9.8-20.1); Calc. Creatinine Clearance 44 mL/min (70-130); Calcium 8.9 mg/dL (7.8-10.44); Carbon Dioxide 25 mmol/L (23-31); Chloride 104 mmol/L (98-107); Estimated GFR-MDRD 48; Glucose 122 mg/dL (83-110); Potassium 3.9 mmol/L (3.5-5.1); Sodium 137 mmol/L (136-145)
[2019-10-21 06:03] LABS: Hemoglobin 10.1 g/dL (12.0-16.0); Mean Corpuscular HGB CONC 33.8 g/dL (32.0-36.0); Mean Corpuscular Hemoglobin 31.6 pg (27.0-31.0); Mean Corpuscular Volume 93.5 fL (78.0-98.0); Mean Platelet Volume 10.2 fL (7.4-10.4); Platelet Count 111 thou/uL (130-400); RBC Distribution Width 11.2 % (11.5-14.5); Red Blood Cell (RBC) Count 3.18 mill/uL (4.20-5.40); White Blood Cell (WBC) Count 4.7 thou/uL (4.8-10.8)
[2019-10-21 06:47] LABS: Eosinophils 4 % (0-10); Lymphocytes 12 % (21-51); MDiff Complete? YES; Monocytes 7 % (0-10); Neutrophil 76 % (42-75); Platelet Morphology Comment Appears Decreased; Reactive Lymphocytes 1 % (0-10)
[2019-10-21] MEDS: Pregabalin 75 MG CAP PO SCH ×2 (07:57→20:40)
[2019-10-21] MEDS: Rifaximin 550 MG TAB PO SCH ×2 (07:57→20:41)
[2019-10-21] MEDS: Multivitamin W/ Minerals 1 TAB PO SCH (07:57)
[2019-10-21] MEDS: Mupirocin 2% Ointment 22 GM Tube TOP SCH ×2 (07:58→20:44)
[2019-10-21] MEDS: Calcium Carbonate 600 MG TAB PO SCH (07:58)
[2019-10-21] MEDS: Zinc Sulfate 220 MG CAP PO SCH ×3 (07:58→20:41)
[2019-10-21] MEDS: Polyethylene Glycol 3350 17 GM Packet PO SCH (08:00)
[2019-10-21] MEDS: (Apremilast [Otezla] 30 MG) PO SCH ×2 (08:08→20:43)
--- NOTE | 2019-10-21 09:58 | PRG ---
DATE OF SERVICE: 10/20/2019 SUBJECTIVE: Ms. Melendez had apparently 540 mL of fluid taken out through her peritoneal drainage catheter, nothing else would come out. OBJECTIVE: VITAL SIGNS: Temperature is 98, pulse 75, blood pressure 100/61. ABDOMEN: Soft. Looking under her dressing, her umbilical hernia repair site looks good. The skin is not tight. EXTREMITIES: Reveal no edema. LABORATORY DATA: White count 5.4, hemoglobin 10, platelet count 119. Sodium 133, potassium 4, BUN and creatinine are 33 and 1.41. ASSESSMENT: 1. Ascites. She was getting tapped about 7 L a week. The umbilical hernia ruptured and she had massive amounts of ascites leakage. Her creatinine is back to relatively stable. It was 1.5 on admission, decreased to 1.1 on , then it was 1.27 yesterday, 1.4 today. Yesterday, albumin was started q.8 and we will continue that. She is eating and drinking. We will not start any IV fluids. All her diuretics have been held. She was still on Aldactone when I saw her yesterday and that was stopped. If creatinine trends upward again tomorrow, she will need IV fluids. 2. As far as accumulation of ascites. The abdomen is pretty soft right now, only 500 mL were taken out today. We will need to watch that. If her abdomen gets tense and it will not drain very much through the tube that the surgeon left in, she will need a paracentesis ultrasound-guided. Surgery is following along and Dr. Dawn will see her for me over the weekend. Job ID: [id number]
--- NOTE | 2019-10-21 11:41 | PRG ---
DATE OF SERVICE: 10/21/2019 SUBJECTIVE: Ms. Melendez is feeling pretty well today. She will have some abdominal discomfort at her incision site when engaging her abdominal muscles, but otherwise no significant discomfort. She does not feel that her abdomen is significantly distended today. She is tolerating her diet. OBJECTIVE: VITAL SIGNS: Temperature 97.5, pulse 102, blood pressure 103/62, and 97% oxygen saturation on room air. GENERAL: No acute distress. HEART: Regular rate and rhythm. LUNGS: Clear to auscultation bilaterally. ABDOMEN: Moderate distention with ascites. Umbilical incision site looks good. There is no drainage from the area. SHIMA drain is in place with only minimal amount of serosanguineous fluid in the bulb. EXTREMITIES: No peripheral edema. LABORATORY STUDIES: WBC 4.7, hemoglobin 10.1, platelets 111. Sodium 137, potassium 3.9, BUN 28, creatinine 1.09, significantly improved from 1.41 yesterday. Glucose is 122, total bilirubin 1.1, direct bilirubin 0.6, alkaline phosphatase 98, AST 25, ALT 10, albumin 3.7. ASSESSMENT AND PLAN: 1. Ascites. 2. Umbilical hernia rupture, now status post surgical repair. The patient is doing well today. Abdomen is not tense. There is only minimal fluid drainage from the SHIMA drain, but I really do not think that drain is going to be useful as her ascites reaccumulate, getting the fluid off. We will see how her abdomen looks tomorrow, but we will have low threshold to repeat ultrasound-guided paracentesis. The goal is to keep the abdomen nondistended to allow for good wound healing at this time. 3. Chronic renal insufficiency. Dr. Kramer discontinued her diuretics and put her on IV albumin yesterday due to increasing creatinine. Today, creatinine is much improved. Continue with the albumin for now. Monitor electrolytes daily. Job ID: [id number]
--- NOTE | 2019-10-21 13:36 | PDOC.HOSPP ---
- Subjective Encounter Date: 10/21/19 Subjective: Feels better Ambulated 250 feet with PT Tolerating her diet - Objective Vital Signs & Weight: Vital Signs (12 hours) Temp Pulse Resp BP Pulse Ox 10/21/19 08:00 97 10/21/19 07:08 97.5 F L 72 20 103/62 97 10/21/19 04:57 98.1 F 75 16 95/54 L 93 L Weight Admit Weight 149 lb 12.8 oz Weight 152 lb I&O: 10/20/19 10/21/19 10/22/19 06:59 06:59 06:59 Intake Total 1170 720 Output Total 5 Balance 1165 720 Result Diagrams: 10/21/19 05:01 10/21/19 05:01 Hospitalist ROS - Medication Medications: Active Medications Generic Name Dose Route Start Last Admin Trade Name Freq PRN Reason Stop Dose Admin Acetaminophen 500 mg 10/17/19 08:28 10/20/19 22:23 Tylenol PO 500 mg BIDPRN PRN Administration Headache/Fever or Pain Hydrocodone Bitart/Acetaminophen 1 tab 10/18/19 16:18 10/21/19 03:58 [place] 7.5/325 PO 1 tab Q6H PRN Administration Mild Pain (1-3) Albumin Human 25 gm 10/19/19 20:00 10/21/19 11:50 Albumin 25% IVPB 10/22/19 20:01 25 gm Q8H AURELIA Administration Calcium Carbonate 600 mg 10/17/19 09:00 10/21/19 07:58 Caltrate PO 600 mg DAILY AURELIA Administration Iron/Minerals/Multivitamins 1 tab 10/17/19 09:00 10/21/19 07:57 Theragran M PO 1 tab DAILY AURELIA Administration Mupirocin 0 gm 10/17/19 09:00 10/21/19 07:58 Bactroban 2% Ointment TOP 1 applic BID AURELIA Administration [Vitamin D2] 88 Unit 0 each 10/17/19 09:00 10/21/19 10:53 PO Not Given DAILY AURELIA (Apremilast [Otezla] 1 each 10/20/19 21:00 10/21/19 08:08 30 Mg) PO 1 each BID AURELIA Administration Polyethylene Glycol 17 gm 10/20/19 09:00 10/21/19 08:00 Miralax PO 17 gm DAILY AURELIA Administration Pregabalin 75 mg 10/17/19 09:00 10/21/19 07:57 Lyrica PO 75 mg DAILY AURELIA Administration Pregabalin 150 mg 10/17/19 21:00 10/20/19 20:08 Lyrica PO 150 mg HS AURELIA Administration Rifaximin 550 mg 10/17/19 09:00 10/21/19 07:57 Xifaxan PO 550 mg BID AURELIA Administration Sodium Chloride 10 ml 10/19/19 21:00 10/21/19 08:00 Flush - Normal Saline IVF 10 ml Q12HR AURELIA Administration Triamcinolone Acetonide 0 gm 10/17/19 09:00 10/21/19 08:08 Kenalog 0.1% Ointment TOP 1 applic BID AURELIA Administration Zinc Sulfate 220 mg 10/17/19 09:00 10/21/19 07:58 Zinc Sulfate PO 220 mg TID AURELIA Administration - Exam General Appearance: NAD Eye: PERRL, anicteric sclera ENT: normocephalic atraumatic Neck: supple, no JVD Heart: RRR, no murmur, no gallops, no rubs Respiratory: CTAB, no wheezes, no rales, no ronchi Gastrointestinal: soft, non-tender, non-distended, normal bowel sounds Neurological: cranial nerve grossly intact, no focal deficits Psychiatric: A&O x 3 Hosp A/P (1) Abdominal hernia Status: Acute (2) Liver cirrhosis Code(s): K74.60 - UNSPECIFIED CIRRHOSIS OF LIVER Status: Acute (3) Ascites Code(s): R18.8 - OTHER ASCITES Status: Acute - Plan Postoperative day 3 of hernia repair and placement of a drain. The patient is feeling well. Renal function back to baseline with IV albumin GI planning paracentesis tomorrow No evidence of confusion or hepatic encephalopathy. Her vital signs are stable. PT & OT.
[2019-10-22 05:20] LABS: Anion Gap 10 mmol/L (10-20); BUN (Urea Nitrogen) 26 mg/dL (9.8-20.1); Calc. Creatinine Clearance 48 mL/min (70-130); Calcium 9.2 mg/dL (7.8-10.44); Carbon Dioxide 25 mmol/L (23-31); Chloride 103 mmol/L (98-107); Estimated GFR-MDRD 53; Glucose 126 mg/dL (83-110); Sodium 134 mmol/L (136-145)
[2019-10-22 05:21] LABS: Mean Corpuscular Volume 94.3 fL (78.0-98.0)
[2019-10-22 05:25] LABS: ALT (SGPT) 17 U/L (8-55); AST (SGOT) 38 U/L (5-34); Albumin 3.4 g/dL (3.4-4.8); Alkaline Phosphatase 118 U/L (40-110); Bilirubin, Direct 0.4 mg/dL (0.1-0.3); Bilirubin, Total 1.1 mg/dL (0.2-1.2); Protein, Total 5.4 g/dL (6.0-8.3)
[2019-10-22] MEDS: Acetaminophen 500 MG TAB PO PRN ×2 (06:06→15:43)
[2019-10-22 06:08] LABS: Hemoglobin 10.6 g/dL (12.0-16.0); Mean Corpuscular HGB CONC 33.2 g/dL (32.0-36.0); Mean Corpuscular Hemoglobin 31.3 pg (27.0-31.0); Mean Platelet Volume 10.4 fL (7.4-10.4); Platelet Count 117 thou/uL (130-400); RBC Distribution Width 11.2 % (11.5-14.5); Red Blood Cell (RBC) Count 3.38 mill/uL (4.20-5.40); White Blood Cell (WBC) Count 4.5 thou/uL (4.8-10.8)
[2019-10-22 07:11] LABS: Eosinophils 5 % (0-10); Lymphocytes 10 % (21-51); MDiff Complete? YES; Monocytes 12 % (0-10); Neutrophil 72 % (42-75); Platelet Morphology Comment Appears Decreased
[2019-10-22] MEDS: Zinc Sulfate 220 MG CAP PO SCH ×3 (08:24→21:11)
[2019-10-22] MEDS: Rifaximin 550 MG TAB PO SCH ×2 (08:25→21:11)
[2019-10-22] MEDS: Pregabalin 75 MG CAP PO SCH ×2 (08:25→21:12)
[2019-10-22] MEDS: Multivitamin W/ Minerals 1 TAB PO SCH (08:25)
[2019-10-22] MEDS: Calcium Carbonate 600 MG TAB PO SCH (08:25)
[2019-10-22] MEDS: (Apremilast [Otezla] 30 MG) PO SCH ×2 (08:26→21:11)
[2019-10-22] MEDS: Mupirocin 2% Ointment 22 GM Tube TOP SCH ×2 (08:26→21:10)
[2019-10-22] MEDS: Polyethylene Glycol 3350 17 GM Packet PO SCH (08:27)
--- NOTE | 2019-10-22 11:39 | PRG ---
DATE OF SERVICE: 10/22/2019 SUBJECTIVE: Ms. Melendez is feeling pretty well. She has gotten up and moved around. She feels her abdomen is only slightly more distended than yesterday, but it is not tense. She does not feel any pressure, just some ongoing pain from the incision sites. She has no other complaints. OBJECTIVE: VITAL SIGNS: Temperature 98.4, pulse 79, blood pressure 97/59, and 94% oxygen saturation on room air. GENERAL: No acute distress. HEART: Regular rate and rhythm. LUNGS: Clear to auscultation bilaterally. ABDOMEN: Mild to moderate distention, but certainly not tense. The abdomen is soft with some mild tenderness to palpation around the incision sites. The umbilical incision site looks good. EXTREMITIES: No peripheral edema. LABORATORY STUDIES: Hemoglobin 10.6, WBC 4.5, platelets 117. Sodium 134, potassium 4.0, BUN down to 26, creatinine down to 1.01, glucose 126, total bilirubin 1.1, alkaline phosphatase 118, AST 38, ALT 17. ASSESSMENT AND PLAN: 1. Ascites. 2. Umbilical hernia rupture, now status post surgical repair. The patient continues to do well today. The abdomen is still not tense. I think we can probably hold off on repeat paracentesis for one more day. Again, the goal is to keep the abdomen nondistended to allow for good wound healing at this time. 3. Chronic renal insufficiency. Dr. Kramer had discontinued her diuretics and given her some IV albumin for the past couple of days due to increasing creatinine. Renal function appears to have improved over the past couple of days. I am going to go ahead and cautiously start back Lasix 20 mg daily and spironolactone [address] Kramer returns tomorrow. Please call anytime with questions or concerns. Job ID: [id number]
[2019-10-22] MEDS ORDERED: Spironolactone 25 MG TAB PO SCH (11:45)
[2019-10-22] MEDS ORDERED: Furosemide 20 MG TAB PO SCH (11:45)
--- NOTE | 2019-10-22 14:22 | PDOC.HOSPP ---
- Subjective Encounter Date: 10/22/19 Subjective: Feels better, ambulating well and tolerating her diet. - Objective Vital Signs & Weight: Vital Signs (12 hours) Temp Pulse Resp BP Pulse Ox 10/22/19 08:00 94 L 10/22/19 07:28 98.4 F 79 18 97/59 L 94 L Weight Admit Weight 149 lb 12.8 oz Weight 154 lb 4.472 oz I&O: 10/21/19 10/22/19 10/23/19 06:59 06:59 06:59 Intake Total 720 1540 Output Total 3 Balance 720 1537 Result Diagrams: 10/22/19 04:31 10/22/19 04:31 Hospitalist ROS - Medication Medications: Active Medications Generic Name Dose Route Start Last Admin Trade Name Freq PRN Reason Stop Dose Admin Acetaminophen 500 mg 10/17/19 08:28 10/22/19 06:06 Tylenol PO 500 mg BIDPRN PRN Administration Headache/Fever or Pain Hydrocodone Bitart/Acetaminophen 1 tab 10/18/19 16:18 10/21/19 20:42 [place] 7.5/325 PO 1 tab Q6H PRN Administration Mild Pain (1-3) Calcium Carbonate 600 mg 10/17/19 09:00 10/22/19 08:25 Caltrate PO 600 mg DAILY AURELIA Administration Iron/Minerals/Multivitamins 1 tab 10/17/19 09:00 10/22/19 08:25 Theragran M PO 1 tab DAILY AURELIA Administration Mupirocin 0 gm 10/17/19 09:00 10/22/19 08:26 Bactroban 2% Ointment TOP 1 applic BID AURELIA Administration [Vitamin D2] 88 Unit 0 each 10/17/19 09:00 10/22/19 08:27 PO Not Given DAILY AURELIA (Apremilast [Otezla] 1 each 10/20/19 21:00 10/22/19 08:26 30 Mg) PO 1 each BID AURELIA Administration Polyethylene Glycol 17 gm 10/20/19 09:00 10/22/19 08:27 Miralax PO 17 gm DAILY AURELIA Administration Pregabalin 75 mg 10/17/19 09:00 10/22/19 08:25 Lyrica PO 75 mg DAILY AURELIA Administration Pregabalin 150 mg 10/17/19 21:00 10/21/19 20:40 Lyrica PO 150 mg HS AURELIA Administration Rifaximin 550 mg 10/17/19 09:00 10/22/19 08:25 Xifaxan PO 550 mg BID AURELIA Administration Sodium Chloride 10 ml 10/19/19 21:00 10/22/19 08:27 Flush - Normal Saline IVF 10 ml Q12HR AURELIA Administration Triamcinolone Acetonide 0 gm 10/17/19 09:00 10/22/19 08:26 Kenalog 0.1% Ointment TOP 1 applic BID AURELIA Administration Zinc Sulfate 220 mg 10/17/19 09:00 10/22/19 08:24 Zinc Sulfate PO 220 mg TID AURELIA Administration - Exam General Appearance: NAD, awake alert Eye: anicteric sclera ENT: normocephalic atraumatic Neck: supple, no JVD Heart: RRR, no murmur, no gallops, no rubs, normal peripheral pulses Respiratory: CTAB Gastrointestinal: soft, non-tender, non-distended, normal bowel sounds, no palpable masses Neurological: cranial nerve grossly intact, no focal deficits Psychiatric: A&O x 3 Hosp A/P (1) Abdominal hernia Status: Acute (2) Liver cirrhosis Code(s): K74.60 - UNSPECIFIED CIRRHOSIS OF LIVER Status: Acute (3) Ascites Code(s): R18.8 - OTHER ASCITES Status: Acute - Plan Postoperative day 4 of hernia repair and placement of a drain. The patient is feeling well. Renal function back to baseline. IV albumin DCed and diuretics restarted. Abdomen is soft. Paracentesis was placed on hold. No evidence of confusion or hepatic encephalopathy. Her vital signs are stable. PT & OT. Plan to DC within 24-48h
[2019-10-23 06:43] LABS: ALT (SGPT) 22 U/L (8-55); AST (SGOT) 40 U/L (5-34); Albumin 3.3 g/dL (3.4-4.8); Alkaline Phosphatase 152 U/L (40-110); Anion Gap 13 mmol/L (10-20); BUN (Urea Nitrogen) 31 mg/dL (9.8-20.1); Bilirubin, Direct 0.5 mg/dL (0.1-0.3); Bilirubin, Total 1.1 mg/dL (0.2-1.2); Calc. Creatinine Clearance 38 mL/min (70-130); Calcium 9.3 mg/dL (7.8-10.44); Carbon Dioxide 23 mmol/L (23-31); Chloride 104 mmol/L (98-107); Estimated GFR-MDRD 39; Globulin 2.2 g/dL (2.4-3.5); Glucose 135 mg/dL (83-110); Potassium 4.5 mmol/L (3.5-5.1); Protein, Total 5.5 g/dL (6.0-8.3); Sodium 135 mmol/L (136-145)
[2019-10-23] MEDS: Pregabalin 75 MG CAP PO SCH ×2 (07:49→19:51)
[2019-10-23] MEDS: Calcium Carbonate 600 MG TAB PO SCH (07:49)
[2019-10-23] MEDS: Multivitamin W/ Minerals 1 TAB PO SCH (07:50)
[2019-10-23] MEDS: Zinc Sulfate 220 MG CAP PO SCH ×3 (07:50→19:50)
[2019-10-23] MEDS: Polyethylene Glycol 3350 17 GM Packet PO SCH (07:50)
[2019-10-23] MEDS: Rifaximin 550 MG TAB PO SCH ×2 (07:50→19:50)
[2019-10-23] MEDS: Mupirocin 2% Ointment 22 GM Tube TOP SCH ×2 (07:52→19:54)
[2019-10-23] MEDS: (Apremilast [Otezla] 30 MG) PO SCH ×2 (07:52→19:52)
[2019-10-23] MEDS ORDERED: Spironolactone 25 MG TAB PO SCH (08:00)
[2019-10-23] MEDS: Acetaminophen 500 MG TAB PO PRN (08:05)
[2019-10-23] MEDS ORDERED: Furosemide 20 MG TAB PO SCH (09:00)
--- NOTE | 2019-10-23 10:56 | PDOC.GSPN ---
Surgery Progress Note: Subj - Subjective Narrative: Ms. Melendez is a 79 F POD#5 following open umbilical repair without mesh and laparoscopic placement of peritoneal dialysis catheter. She is doing well this AM. She denies abdominal pain today other than where the abdominal wrap digs into her skin. She notes that she feels mildly distended and reports that GI may try and remove some fluid today. There has been minimal drainage from SHIMA drain. She has been tolerating low sodium diet well and denies nausea, vomiting. She has been having BMs and voiding without difficulty. She worked with PT and has ambulated in the halls. Surgery Progress Note: Obj - Vital signs Vital signs: Vital Signs - Most Recent Temp Pulse Resp BP Pulse Ox 98.0 F 78 14 99/60 94 L 10/23/19 07:26 10/23/19 07:26 10/23/19 07:26 10/23/19 07:26 10/23/19 08:00 - Physical Exam General: no distress Cardiovascular: regular rate and rhythm Respiratory: clear to auscultation Abdomen: soft, positive bowel sounds, appropriately tender, distended (mild) Wound: dressing clean,dry,intact, healing well, drainage (SHIMA drain with only a few ml of serosanguineous fluid) Surgery Progress Note: Results - Labs Result Diagrams: 10/22/19 04:31 10/23/19 04:37 Lab results: Laboratory Results - last 24 hr 10/23/19 04:37 Sodium 135 L Potassium 4.5 Chloride 104 Carbon Dioxide 23 Anion Gap 13 BUN 31 H Creatinine 1.32 H Estimated GFR (MDRD) 39 Glucose 135 H Calcium 9.3 Total Bilirubin 1.1 Direct Bilirubin 0.5 H AST 40 H ALT 22 Alkaline Phosphatase 152 H Serum Total Protein 5.5 L Albumin 3.3 L Globulin 2.2 L Albumin/Globulin Ratio 1.5 Surgery Progress Note: A/P - Plan Plan: Ms. Melendez is a 79 F POD#5 following open umbilical repair without mesh and laparoscopic placement of peritoneal dialysis catheter. 1. Abdomen is soft with appropriate tenderness. Patient notes mild distention. Possible further drainage of ascites today with GI. 2. SHIMA drain has been draining only a few ml of serosanguineous fluid. Plan to remove. 3. Patient is tolerating diet well. Denies nausea, vomiting. Continue as tolerated. 4. Encourage continued ambulation with PT. Addendum - Physician - Physician Attestation Date/Time: 10/23/19 6835 I personally performed or re-performed the physical examination and medical decision making. I have verified all student documentation or findings, including history, physical exam and/or medical decision making. DC'd Shima zapata Overall doing very well.
--- NOTE | 2019-10-23 10:59 | PRG ---
DATE OF SERVICE: 10/23/2019 SUBJECTIVE: Over the weekend, Ms. Melendez has had no fluid removed. She is just waking up feeling pretty well. She has had no drainage from her umbilical hernia repair. She is without complaints. OBJECTIVE: VITAL SIGNS: Temperature is 98. She has been afebrile over the weekend, pulse 78, blood pressure 99/60. She has been as low as 92/55. LUNGS: Clear. HEART: Regular rhythm. ABDOMEN: Soft. There is a fluid wave but it is not tense. There is no drainage or erythema at her umbilical hernia repair site. Her SHIMA has a little bit of serosanguineous fluid, less than 10 mL has been recorded output over the weekend. The patient has not been weighed today. She was 154 on the . There is no weight from the to . LABORATORY DATA: Sodium 135, potassium 4.5. BUN and creatinine are 31 and 1.32. AST is 40, ALT 22, alkaline phosphatase 152. ASSESSMENT: 1. Status post repair of a necrotic perforated umbilical hernia with spillage of ascitic fluid. 2. 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 3. Ascites refractory on paracentesis routinely in the outpatient setting. 4. Fluid status seemed to indicate she is gaining weight, but she has some edema in her legs, but she has minimal ascites in the abdominal cavity at this point in time, she was started on diuretics. Her BUN and creatinine have gone up a bit. She does continue on albumin. RECOMMENDATIONS: 1. Remove 1 L fluid from peritoneal cavity today. 2. Stop diuretics. 3. Resume albumin infusions. 4. Follow renal function. I have discussed with nurse. Job ID: [id number]
[2019-10-23] MEDS: Albumin 25% 25 GM/100 ML BOT IVPB SCH ×3 (11:41→23:28)
[2019-10-23 13:48] LABS: RBC Count-Automated (BF) 2091 /cumm; WBC/Nucleated-Auto (BF) 810 uL
[2019-10-23 14:08] LABS: BF Color Yellow; Body Fluid Source Ascites Body Fluid; Clarity Cloudy/Turbid (Clear); Tube # EDTA
[2019-10-23 14:10] LABS: BF Segmented Neutrophils 10 %; Lymphocytes 30 %
[2019-10-23 14:11] LABS: Cell Count Non Hematic 58 %; Eosinophils 2 %
--- NOTE | 2019-10-23 14:29 | PDOC.HOSPP ---
- Subjective Encounter Date: 10/23/19 Subjective: The patient was seen and examined. She denies any new complaints. She is ambulating well and tolerating her diet. Her abdomen feels a bit more full today. No significant drainage from the SHIMA - Objective Vital Signs & Weight: Vital Signs (12 hours) Temp Pulse Resp BP BP Pulse Ox 10/23/19 08:00 94 L 10/23/19 07:26 98.0 F 78 14 99/60 94 L 10/23/19 03:38 98.2 F 77 18 96/58 L 93 L Weight Admit Weight 149 lb 12.8 oz Weight 161 lb I&O: 10/22/19 10/23/19 10/24/19 06:59 06:59 06:59 Intake Total 1540 1240 Output Total 3 1 1500 Balance 1537 1239 -1500 Result Diagrams: 10/22/19 04:31 10/23/19 04:37 Hospitalist ROS - Medication Medications: Active Medications Generic Name Dose Route Start Last Admin Trade Name Freq PRN Reason Stop Dose Admin Acetaminophen 500 mg 10/17/19 08:28 10/23/19 08:05 Tylenol PO 500 mg BIDPRN PRN Administration Headache/Fever or Pain Hydrocodone Bitart/Acetaminophen 1 tab 10/18/19 16:18 10/21/19 20:42 Currie 7.5/325 PO 1 tab Q6H PRN Administration Mild Pain (1-3) Albumin Human 25 gm 10/23/19 12:00 10/23/19 11:41 Albumin 25% IVPB 10/27/19 12:01 25 gm Q6H AURELIA Administration Calcium Carbonate 600 mg 10/17/19 09:00 10/23/19 07:49 Caltrate PO 600 mg DAILY AURELIA Administration Iron/Minerals/Multivitamins 1 tab 10/17/19 09:00 10/23/19 07:50 Theragran M PO 1 tab DAILY AURELIA Administration Mupirocin 0 gm 10/17/19 09:00 10/23/19 07:52 Bactroban 2% Ointment TOP 1 applic BID AURELIA Administration [Vitamin D2] 88 Unit 0 each 10/17/19 09:00 10/23/19 07:52 PO Not Given DAILY AURELIA (Apremilast [Otezla] 1 each 10/20/19 21:00 10/23/19 07:52 30 Mg) PO 1 each BID AURELIA Administration Polyethylene Glycol 17 gm 10/20/19 09:00 10/23/19 07:50 Miralax PO 17 gm DAILY AURELIA Administration Pregabalin 75 mg 10/17/19 09:00 10/23/19 07:49 Lyrica PO 75 mg DAILY AURELIA Administration Pregabalin 150 mg 10/17/19 21:00 10/22/19 21:12 Lyrica PO 150 mg HS AURELIA Administration Rifaximin 550 mg 10/17/19 09:00 10/23/19 07:50 Xifaxan PO 550 mg BID AURELIA Administration Sodium Chloride 10 ml 10/19/19 21:00 10/23/19 07:51 Flush - Normal Saline IVF 10 ml Q12HR AURELIA Administration Triamcinolone Acetonide 0 gm 10/17/19 09:00 10/23/19 07:51 Kenalog 0.1% Ointment TOP 1 applic BID AURELIA Administration Zinc Sulfate 220 mg 10/17/19 09:00 10/23/19 07:50 Zinc Sulfate PO 220 mg TID AURELIA Administration - Exam General Appearance: awake alert Eye: anicteric sclera ENT: normocephalic atraumatic Neck: supple Heart: RRR, no murmur, no gallops, no rubs, normal peripheral pulses Respiratory: CTAB Gastrointestinal: soft, non-tender, non-distended, normal bowel sounds Hosp A/P (1) Abdominal hernia Status: Acute (2) Liver cirrhosis Code(s): K74.60 - UNSPECIFIED CIRRHOSIS OF LIVER Status: Acute (3) Ascites Code(s): R18.8 - OTHER ASCITES Status: Acute - Plan Postoperative day 5 of hernia repair and placement of a drain. The patient is feeling well. The patient's creatinine level is trending up. IV albumin has been restarted and diuretics are held. Plan for 1 L of fluid to be removed through paracentesis today. Surgical team planning on discontinuing the SHIMA drain. No evidence of confusion or hepatic encephalopathy. Her vital signs are stable. PT & OT. Plan to DC within 24-48h
[2019-10-23] MEDS: traMADol HCl 50 MG TAB PO PRN (17:20)
[2019-10-24] MEDS: Albumin 25% 25 GM/100 ML BOT IVPB SCH ×3 (06:02→20:24)
[2019-10-24 06:14] LABS: ALT (SGPT) 19 U/L (8-55); AST (SGOT) 32 U/L (5-34); Albumin 3.7 g/dL (3.4-4.8); Alkaline Phosphatase 137 U/L (40-110); Anion Gap 10 mmol/L (10-20); BUN (Urea Nitrogen) 30 mg/dL (9.8-20.1); Bilirubin, Direct 0.5 mg/dL (0.1-0.3); Bilirubin, Total 0.9 mg/dL (0.2-1.2); Calc. Creatinine Clearance 43 mL/min (70-130); Calcium 9.4 mg/dL (7.8-10.44); Carbon Dioxide 26 mmol/L (23-31); Chloride 105 mmol/L (98-107); Estimated GFR-MDRD 44; Glucose 119 mg/dL (83-110); Potassium 4.1 mmol/L (3.5-5.1); Protein, Total 5.5 g/dL (6.0-8.3); Sodium 137 mmol/L (136-145)
--- NOTE | 2019-10-24 07:24 | PDOC.GSPN ---
Surgery Progress Note: Subj - Subjective Narrative: Ms. Melendez is an 79 F POD#6 following open umbilical repair without mesh and laparoscopic placement of peritoneal dialysis catheter. Patient slept well last night and has no complaints this AM. Yesterday SHIMA drain was removed and about 1500 ml was removed through PD catheter. She denies abdominal pain. She has been tolerating her regular diet well and denies nausea, vomiting. She has been having BMs and voiding without difficulty. She was restarted on IV albumin. She walked a few laps in the halls yesterday with PT. Surgery Progress Note: Obj - Vital signs Vital signs: Vital Signs - Most Recent Temp Pulse Resp BP Pulse Ox 97.7 F 81 16 106/67 95 10/24/19 07:21 10/23/19 19:28 10/24/19 07:21 10/24/19 07:21 10/24/19 07:21 - Physical Exam General: no distress Cardiovascular: regular rate and rhythm Respiratory: clear to auscultation Abdomen: soft, nondistended, positive bowel sounds, appropriately tender Wound: dressing clean,dry,intact, healing well Surgery Progress Note: Results - Labs Result Diagrams: 10/22/19 04:31 10/24/19 05:12 Lab results: Laboratory Results - last 24 hr 10/24/19 05:12 Sodium 137 Potassium 4.1 Chloride 105 Carbon Dioxide 26 Anion Gap 10 BUN 30 H Creatinine 1.19 H Estimated GFR (MDRD) 44 Glucose 119 H Calcium 9.4 Total Bilirubin 0.9 Direct Bilirubin 0.5 H AST 32 ALT 19 Alkaline Phosphatase 137 H Serum Total Protein 5.5 L Albumin 3.7 Surgery Progress Note: A/P - Plan Plan: Ms. Melendez is an 79 F POD#6 following open umbilical repair without mesh and laparoscopic placement of peritoneal dialysis catheter. 1. Abdomen is soft and patient denies abdominal pain. SHIMA drain removed and 1500 ml of fluid drained through PD cath yesterday. She is being seen by GI. 2. Renal function is being followed. Diuretics held and IV albumin restarted. 3. Patient is tolerating diet well. Denies nausea, vomiting. Continue low sodium diet. 4. Encourage continued ambulation with PT. Addendum - Physician - Physician Attestation Date/Time: 10/24/19 7873 I personally performed or re-performed the physical examination and medical decision making. I have verified all student documentation or findings, including history, physical exam and/or medical decision making. Doing well. Home soon
[2019-10-24] MEDS: Polyethylene Glycol 3350 17 GM Packet PO SCH (07:57)
[2019-10-24] MEDS: Rifaximin 550 MG TAB PO SCH ×2 (07:57→20:24)
[2019-10-24] MEDS: Pregabalin 75 MG CAP PO SCH ×2 (07:58→20:24)
[2019-10-24] MEDS: Multivitamin W/ Minerals 1 TAB PO SCH (07:58)
[2019-10-24] MEDS: Zinc Sulfate 220 MG CAP PO SCH ×3 (07:58→20:26)
[2019-10-24] MEDS: (Apremilast [Otezla] 30 MG) PO SCH ×2 (07:59→20:27)
[2019-10-24] MEDS: Calcium Carbonate 600 MG TAB PO SCH (07:59)
[2019-10-24] MEDS: Mupirocin 2% Ointment 22 GM Tube TOP SCH ×2 (08:00→20:34)
[2019-10-24] MEDS: traMADol HCl 50 MG TAB PO PRN ×2 (14:24→20:29)
--- NOTE | 2019-10-24 18:45 | PDOC.HOSPP ---
- Subjective Encounter Date: 10/24/19 Subjective: No new complaints. Ambulating well with PT. Abdomen is soft. - Objective Vital Signs & Weight: Vital Signs (12 hours) Temp Resp BP Pulse Ox 10/24/19 08:00 95 10/24/19 07:21 97.7 F 16 106/67 95 Weight Admit Weight 149 lb 12.8 oz Weight 160 lb 6.4 oz I&O: 10/23/19 10/24/19 10/25/19 06:59 06:59 06:59 Intake Total 1240 1265 720 Output Total 1 1500 Balance 1239 -235 720 Result Diagrams: 10/22/19 04:31 10/24/19 05:12 Hospitalist ROS - Medication Medications: Active Medications Generic Name Dose Route Start Last Admin Trade Name Freq PRN Reason Stop Dose Admin Acetaminophen 500 mg 10/17/19 08:28 10/23/19 08:05 Tylenol PO 500 mg BIDPRN PRN Administration Headache/Fever or Pain Hydrocodone Bitart/Acetaminophen 1 tab 10/18/19 16:18 10/21/19 20:42 Switchback 7.5/325 PO 1 tab Q6H PRN Administration Mild Pain (1-3) Calcium Carbonate 600 mg 10/17/19 09:00 10/24/19 07:59 Caltrate PO 600 mg DAILY AURELIA Administration Iron/Minerals/Multivitamins 1 tab 10/17/19 09:00 10/24/19 07:58 Theragran M PO 1 tab DAILY AURELIA Administration Mupirocin 0 gm 10/17/19 09:00 10/24/19 08:00 Bactroban 2% Ointment TOP 1 applic BID AURELIA Administration [Vitamin D2] 88 Unit 0 each 10/17/19 09:00 10/24/19 07:59 PO Not Given DAILY AURELIA (Apremilast [Otezla] 1 each 10/20/19 21:00 10/24/19 07:59 30 Mg) PO 1 each BID AURELIA Administration Polyethylene Glycol 17 gm 10/20/19 09:00 10/24/19 07:57 Miralax PO 17 gm DAILY AURELIA Administration Pregabalin 75 mg 10/17/19 09:00 10/24/19 07:58 Lyrica PO 75 mg DAILY AURELIA Administration Pregabalin 150 mg 10/17/19 21:00 10/23/19 19:51 Lyrica PO 150 mg HS AURELIA Administration Rifaximin 550 mg 10/17/19 09:00 10/24/19 07:57 Xifaxan PO 550 mg BID AURELIA Administration Sodium Chloride 10 ml 10/19/19 21:00 10/24/19 08:27 Flush - Normal Saline IVF 10 ml Q12HR AURELIA Administration Tramadol HCl 50 mg 10/18/19 16:18 10/24/19 14:24 Ultram PO 50 mg Q6H PRN Administration Pain Triamcinolone Acetonide 0 gm 10/17/19 09:00 10/24/19 08:00 Kenalog 0.1% Ointment TOP 1 applic BID AURELIA Administration Zinc Sulfate 220 mg 10/17/19 09:00 10/24/19 14:27 Zinc Sulfate PO 220 mg TID AURELIA Administration - Exam General Appearance: NAD, awake alert ENT: normocephalic atraumatic Neck: supple, symmetric, no JVD Heart: RRR, no murmur, no gallops, no rubs, normal peripheral pulses Respiratory: CTAB, no wheezes, no rales Gastrointestinal: soft, non-tender Hosp A/P (1) Abdominal hernia Status: Acute (2) Liver cirrhosis Code(s): K74.60 - UNSPECIFIED CIRRHOSIS OF LIVER Status: Acute (3) Ascites Code(s): R18.8 - OTHER ASCITES Status: Acute - Plan Postoperative day 6 of hernia repair and placement of a drain. The patient is feeling well. SHIMA removed yesterday. Wound apprears to be healing well. Okay to DC soon per surgery. On IV albumin and cr level improveing. No evidence of confusion or hepatic encephalopathy. Her vital signs are stable. PT & OT.
[2019-10-25] MEDS: Albumin 25% 25 GM/100 ML BOT IVPB SCH ×3 (03:39→19:50)
[2019-10-25 06:10] LABS: Anion Gap 12 mmol/L (10-20); BUN (Urea Nitrogen) 30 mg/dL (9.8-20.1); Calc. Creatinine Clearance 44 mL/min (70-130); Calcium 9.7 mg/dL (7.8-10.44); Carbon Dioxide 25 mmol/L (23-31); Chloride 104 mmol/L (98-107); Estimated GFR-MDRD 43; Glucose 119 mg/dL (83-110); Potassium 4.4 mmol/L (3.5-5.1); Sodium 137 mmol/L (136-145)
--- NOTE | 2019-10-25 07:17 | PDOC.GSPN ---
Surgery Progress Note: Subj - Subjective Narrative: Ms. Melendez is a 79 F POD#7 following open umbilical repair without mesh and laparoscopic placement of peritoneal dialysis catheter. Patient is doing well this AM. She notes feeling a little marquez this morning and reports that GI may try and drain more fluid through her PD cath today. She denies abdominal pain. She is tolerating her regular diet well and denies nausea, vomiting. She worked with PT yesterday and is has been ambulating in the halls. Surgery Progress Note: Obj - Vital signs Vital signs: Vital Signs - Most Recent Temp Pulse Resp BP Pulse Ox 98.6 F 76 20 97/62 97 10/24/19 20:00 10/24/19 20:00 10/24/19 20:00 10/24/19 20:00 10/24/19 20:00 - Physical Exam General: no distress Cardiovascular: regular rate and rhythm Respiratory: clear to auscultation Abdomen: soft, non tender, positive bowel sounds, distended (mild) Wound: dressing clean,dry,intact, healing well Surgery Progress Note: Results - Labs Result Diagrams: 10/22/19 04:31 10/25/19 05:37 Lab results: Laboratory Results - last 24 hr 10/25/19 05:37 Sodium 137 Potassium 4.4 Chloride 104 Carbon Dioxide 25 Anion Gap 12 BUN 30 H Creatinine 1.20 H Estimated GFR (MDRD) 43 Glucose 119 H Calcium 9.7 Surgery Progress Note: A/P - Plan Plan: Ms. Melendez is a 79 F POD#7 following open umbilical repair without mesh and laparoscopic placement of peritoneal dialysis catheter. 1. Abdomen soft. Patient notes increased fullness. Possible further drainage of fluid through PD catheter today. 2. Patient is on IV albumin and renal function is being followed. 3. Patient tolerating diet well. Continue low sodium diet. 4. Encourage continued ambulation and work with PT. Addendum - Physician - Physician Attestation Date/Time: 10/25/19 7043 I personally performed or re-performed the physical examination and medical decision making. I have verified all student documentation or findings, including history, physical exam and/or medical decision making. Can be discharged anytime from my standpoint. I sent RX for tramadol to [facility] on [facility]
[2019-10-25] MEDS: Multivitamin W/ Minerals 1 TAB PO SCH (08:11)
[2019-10-25] MEDS: Zinc Sulfate 220 MG CAP PO SCH ×3 (08:11→20:04)
[2019-10-25] MEDS: Calcium Carbonate 600 MG TAB PO SCH (08:11)
[2019-10-25] MEDS: Rifaximin 550 MG TAB PO SCH ×2 (08:11→20:04)
[2019-10-25] MEDS: (Apremilast [Otezla] 30 MG) PO SCH ×2 (08:11→20:03)
[2019-10-25] MEDS: Polyethylene Glycol 3350 17 GM Packet PO SCH (08:11)
[2019-10-25] MEDS: Pregabalin 75 MG CAP PO SCH ×2 (08:13→20:04)
[2019-10-25] MEDS: Mupirocin 2% Ointment 22 GM Tube TOP SCH ×2 (08:14→20:00)
--- NOTE | 2019-10-25 10:34 | PRG ---
DATE OF SERVICE: 10/24/2019 SUBJECTIVE: Ms. Melendez is doing well today. She has had a little bit more fluid accumulation. OBJECTIVE: VITAL SIGNS: Temperature 97, pulse 95, blood pressure 106/67, weight is 160 and it was 154 on the . GENERAL: The patient had about 1.5 L removed by nurses yesterday from paracentesis. She is resting comfortably in bed. ABDOMEN: Little bit more distended with dullness. Incision site looks good. LABORATORY DATA: White count 4.5, hemoglobin 10.6, platelet count 117, BUN 30, creatinine 1.19. AST and ALT are normal. ASSESSMENT: 1. Repair of umbilical hernia perforation. 2. Renal function, stable. 3. Reaccumulation of ascites. PLAN: We will re-tap tomorrow. Continue albumin daily. Job ID: [id number]
--- NOTE | 2019-10-25 15:29 | PDOC.HOSPP ---
- Subjective Encounter Date: 10/25/19 Subjective: No new complaints or events overnight - Objective Vital Signs & Weight: Vital Signs (12 hours) Temp Pulse Resp BP Pulse Ox 10/25/19 11:49 74 16 95 10/25/19 08:10 91 L 10/25/19 07:35 98.0 F 72 18 105/64 91 L Weight Admit Weight 149 lb 12.8 oz Weight 163 lb I&O: 10/24/19 10/25/19 10/26/19 06:59 06:59 06:59 Intake Total 1265 1340 Output Total 1500 Balance -235 1340 Result Diagrams: 10/22/19 04:31 10/25/19 05:37 Hospitalist ROS - Medication Medications: Active Medications Generic Name Dose Route Start Last Admin Trade Name Freq PRN Reason Stop Dose Admin Acetaminophen 500 mg 10/17/19 08:28 10/23/19 08:05 Tylenol PO 500 mg BIDPRN PRN Administration Headache/Fever or Pain Hydrocodone Bitart/Acetaminophen 1 tab 10/18/19 16:18 10/21/19 20:42 [place] 7.5/325 PO 1 tab Q6H PRN Administration Mild Pain (1-3) Albumin Human 25 gm 10/24/19 20:00 10/25/19 11:50 Albumin 25% IVPB 10/30/19 18:46 25 gm 0400,1200,2000 AURELIA Administration Calcium Carbonate 600 mg 10/17/19 09:00 10/25/19 08:11 Caltrate PO 600 mg DAILY AURELIA Administration Iron/Minerals/Multivitamins 1 tab 10/17/19 09:00 10/25/19 08:11 Theragran M PO 1 tab DAILY AURELIA Administration Mupirocin 0 gm 10/17/19 09:00 10/25/19 08:14 Bactroban 2% Ointment TOP 1 applic BID AURELIA Administration [Vitamin D2] 88 Unit 0 each 10/17/19 09:00 10/25/19 08:12 PO Not Given DAILY AURELIA (Apremilast [Otezla] 1 each 10/20/19 21:00 10/25/19 08:11 30 Mg) PO 1 each BID AURELIA Administration Polyethylene Glycol 17 gm 10/20/19 09:00 10/25/19 08:11 Miralax PO 17 gm DAILY AURELIA Administration Pregabalin 75 mg 10/17/19 09:00 10/25/19 08:13 Lyrica PO 75 mg DAILY AURELIA Administration Pregabalin 150 mg 10/17/19 21:00 10/24/19 20:24 Lyrica PO 150 mg HS AURELIA Administration Rifaximin 550 mg 10/17/19 09:00 10/25/19 08:11 Xifaxan PO 550 mg BID AURELIA Administration Sodium Chloride 10 ml 10/19/19 21:00 10/25/19 08:15 Flush - Normal Saline IVF 10 ml Q12HR AURELIA Administration Tramadol HCl 50 mg 10/18/19 16:18 10/24/19 20:29 Ultram PO 50 mg Q6H PRN Administration Pain Triamcinolone Acetonide 0 gm 10/17/19 09:00 10/25/19 08:14 Kenalog 0.1% Ointment TOP 1 applic BID AURELIA Administration Zinc Sulfate 220 mg 10/17/19 09:00 10/25/19 14:10 Zinc Sulfate PO 220 mg TID AURELIA Administration - Exam General Appearance: awake alert ENT: normocephalic atraumatic Neck: supple, no JVD Heart: RRR, no murmur, no gallops, no rubs, normal peripheral pulses Respiratory: CTAB Gastrointestinal: soft, non-tender, non-distended, normal bowel sounds Neurological: cranial nerve grossly intact, no weakness Hosp A/P (1) Abdominal hernia Status: Acute (2) Liver cirrhosis Code(s): K74.60 - UNSPECIFIED CIRRHOSIS OF LIVER Status: Acute (3) Ascites Code(s): R18.8 - OTHER ASCITES Status: Acute - Plan Postoperative day 7 of hernia repair and placement of a drain. The patient is feeling well. SHIMA removed yesterday. Wound apprears to be healing well. Okay to DC soon per surgery. On IV albumin and cr level improveing. No evidence of confusion or hepatic encephalopathy. Her vital signs are stable. PT & OT. S/P paracentesis. Plan to Discharge when okay by GI
--- NOTE | 2019-10-25 19:51 | PRG ---
DATE OF SERVICE: 10/25/2019 SUBJECTIVE: Ms. Melendez is doing fine today. She is up walking. She is eating. She has had about 2 L taken out through her paracentesis today. OBJECTIVE: VITAL SIGNS: Temperature is 98, pulse 76, blood pressure 105/64 to 96/58. ABDOMEN: Protuberant. It showed a quite a bit of ascites. EXTREMITIES: Trace edema. LABORATORY DATA: White count is 4.5, hemoglobin is 10.7, platelet count 117. Sodium 137, BUN and creatinine 30 and 1.12. ASSESSMENT: 1. Cirrhosis. 2. Ascites. 3. Recent perforation of skin at umbilical hernia repair. Reaccumulation of ascites more quickly now. Renal function is fairly stable, off diuretics. PLAN: We will tap 4 L tomorrow. I will talk to Dr. Ureña about removing the dialysis catheter and get her back on her outpatient scheduled paracentesis if he is okay with that. Job ID: [id number]
[2019-10-26] MEDS: traMADol HCl 50 MG TAB PO PRN (05:39)
[2019-10-26 06:43] LABS: Anion Gap 11 mmol/L (10-20); BUN (Urea Nitrogen) 31 mg/dL (9.8-20.1); Calc. Creatinine Clearance 44 mL/min (70-130); Calcium 10.1 mg/dL (7.8-10.44); Carbon Dioxide 28 mmol/L (23-31); Chloride 101 mmol/L (98-107); Estimated GFR-MDRD 45; Glucose 121 mg/dL (83-110); Potassium 4.3 mmol/L (3.5-5.1); Sodium 136 mmol/L (136-145)
--- NOTE | 2019-10-26 07:26 | PDOC.GSPN ---
Surgery Progress Note: Subj - Subjective Narrative: Ms. Melendez is an 79 F POD#8 following open umbilical repair without mesh and laparoscopic placement of peritoneal dialysis catheter. She is feeling a bit tired this AM but is otherwise doing well. She denies abdominal pain but notes some discomfort from a wound on her buttock. This was dressed yesterday. 1900 ml of fluid was drained through PD catheter yesterday. She is feeling more abdominal fullness this morning and reports that further fluid would be drained today. She is tolerating her regular diet and denies nausea, vomiting. She is having BMs and voiding without difficulty. She has been ambulating in the halls and working with PT. Surgery Progress Note: Obj - Vital signs Vital signs: Vital Signs - Most Recent Temp Pulse Resp BP Pulse Ox 98.5 F 75 16 106/64 92 L 10/25/19 20:04 10/25/19 20:04 10/25/19 20:04 10/25/19 20:04 10/25/19 20:04 - Physical Exam General: no distress Cardiovascular: regular rate and rhythm Respiratory: clear to auscultation Abdomen: soft, positive bowel sounds, appropriately tender Wound: dressing clean,dry,intact, healing well, other (PD catheter in place) Surgery Progress Note: Results - Labs Result Diagrams: 10/22/19 04:31 10/26/19 05:49 Lab results: Laboratory Results - last 24 hr 10/26/19 05:49 Sodium 136 Potassium 4.3 Chloride 101 Carbon Dioxide 28 Anion Gap 11 BUN 31 H Creatinine 1.15 H Estimated GFR (MDRD) 45 Glucose 121 H Calcium 10.1 Surgery Progress Note: A/P - Plan Plan: Ms. Melendez is an 79 F POD#8 following open umbilical repair without mesh and laparoscopic placement of peritoneal dialysis catheter. 1. Abdomen soft. Patient notes increased fullness. Possible further drainage of fluid through PD catheter today. 2. Discuss removal of PD catheter. 3. Monitor wound on buttock and continue with ointment and dressing. 4. Renal function more stable. IV albumin was discontinued. 5. Patient tolerating diet well. Continue low sodium diet. 6. Encourage continued ambulation and work with PT.
[2019-10-26] MEDS: Zinc Sulfate 220 MG CAP PO SCH ×3 (07:54→21:04)
[2019-10-26] MEDS: Multivitamin W/ Minerals 1 TAB PO SCH (07:54)
[2019-10-26] MEDS: Rifaximin 550 MG TAB PO SCH ×2 (07:54→19:58)
[2019-10-26] MEDS: Calcium Carbonate + Vit D 1 TAB PO SCH (07:55)
[2019-10-26] MEDS: Mupirocin 2% Ointment 22 GM Tube TOP SCH ×2 (07:55→21:05)
[2019-10-26] MEDS: Polyethylene Glycol 3350 17 GM Packet PO SCH (07:55)
[2019-10-26] MEDS: (Apremilast [Otezla] 30 MG) PO SCH ×2 (07:57→21:04)
[2019-10-26] MEDS: Pregabalin 75 MG CAP PO SCH ×2 (08:00→19:58)
[2019-10-26 13:54] VITALS: BMI 26.4
[2019-10-26] MEDS: Midodrine HCl 5 MG TAB PO SCH (19:58)
--- NOTE | 2019-10-26 20:39 | PDOC.HOSPP ---
- Subjective Encounter Date: 10/26/19 Subjective: The patient was seen and examined. She has no new complaints today. Tolerating her meals and ambulating with physical therapy. - Objective Vital Signs & Weight: Vital Signs (12 hours) Temp Pulse Resp BP Pulse Ox 10/26/19 19:36 99.3 F 80 20 95/58 L 96 Weight Admit Weight 149 lb 12.8 oz Weight 158 lb 11.337 oz I&O: 10/25/19 10/26/19 10/27/19 06:59 06:59 06:59 Intake Total 1340 1410 1274 Output Total 1900 2450 Balance 7134 -376 -3792 Result Diagrams: 10/22/19 04:31 10/26/19 05:49 Hospitalist ROS - Medication Medications: Active Medications Generic Name Dose Route Start Last Admin Trade Name Freq PRN Reason Stop Dose Admin Acetaminophen 500 mg 10/17/19 08:28 10/23/19 08:05 Tylenol PO 500 mg BIDPRN PRN Administration Headache/Fever or Pain Hydrocodone Bitart/Acetaminophen 1 tab 10/18/19 16:18 10/21/19 20:42 Erath 7.5/325 PO 1 tab Q6H PRN Administration Mild Pain (1-3) Calcium/Vitamin D 1 tab 10/26/19 09:00 10/26/19 07:55 Caltrate 600 + Vit D PO 1 tab DAILY AURELIA Administration Iron/Minerals/Multivitamins 1 tab 10/17/19 09:00 10/26/19 07:54 Theragran M PO 1 tab DAILY AURELIA Administration Midodrine 5 mg 10/26/19 21:00 10/26/19 19:58 Proamatine PO 5 mg TID AURELIA Administration Mupirocin 0 gm 10/17/19 09:00 10/26/19 07:55 Bactroban 2% Ointment TOP 1 applic BID AURELIA Administration (Apremilast [Otezla] 1 each 10/20/19 21:00 10/26/19 07:57 30 Mg) PO 1 each BID AURELIA Administration Polyethylene Glycol 17 gm 10/20/19 09:00 10/26/19 07:55 Miralax PO 17 gm DAILY AURELIA Administration Pregabalin 75 mg 10/17/19 09:00 10/26/19 08:00 Lyrica PO 75 mg DAILY AURELIA Administration Pregabalin 150 mg 10/17/19 21:00 10/26/19 19:58 Lyrica PO 150 mg HS AURELIA Administration Rifaximin 550 mg 10/17/19 09:00 10/26/19 19:58 Xifaxan PO 550 mg BID AURELIA Administration Sodium Chloride 10 ml 10/19/19 21:00 10/26/19 07:59 Flush - Normal Saline IVF 10 ml Q12HR AURELIA Administration Tramadol HCl 50 mg 10/18/19 16:18 10/26/19 05:39 Ultram PO 50 mg Q6H PRN Administration Pain Triamcinolone Acetonide 0 gm 10/17/19 09:00 10/26/19 07:56 Kenalog 0.1% Ointment TOP 1 applic BID AURELIA Administration Zinc Sulfate 220 mg 10/17/19 09:00 10/26/19 15:47 Zinc Sulfate PO 220 mg TID AURELIA Administration - Exam General Appearance: awake alert ENT: normocephalic atraumatic Neck: supple, no JVD Heart: RRR, no murmur, no gallops, no rubs, normal peripheral pulses Respiratory: CTAB, no wheezes, no rales, no ronchi, normal chest expansion, no tachypnea Gastrointestinal: soft, non-tender, non-distended, normal bowel sounds Hosp A/P (1) Abdominal hernia Status: Acute (2) Liver cirrhosis Code(s): K74.60 - UNSPECIFIED CIRRHOSIS OF LIVER Status: Acute (3) Ascites Code(s): R18.8 - OTHER ASCITES Status: Acute - Plan Postoperative day 8 of hernia repair and placement of a drain. The patient is feeling well. SHIMA removed 10/24 Wound apprears to be healing well. On IV albumin and cr level improveing. No evidence of confusion or hepatic encephalopathy. Her vital signs are stable. PT & OT. GI to decide on paracentesis schedule. Surgery team is discussing removal of the PD catheter.
[2019-10-27 06:07] LABS: #Basophils 0.1 thou/uL (0.0-0.2); #Eosinphils 0.2 thou/uL (0.0-0.7); #Lymphocytes 0.6 thou/uL (1.20-3.40); #Monocytes 0.6 thou/uL (0.11-0.59); #Neutrophils 4.2 thou/uL (1.40-6.50); %Basophils 1.9 % (0.0-1.0); %Eosinophils 3.1 % (0.0-10.0); %Lymphocytes 10.3 % (21.0-51.0); %Monocytes 11.1 % (0.0-10.0); %Neutrophils 73.6 % (42.0-75.0); Hemoglobin 10.5 g/dL (12.0-16.0); Mean Corpuscular HGB CONC 34.1 g/dL (32.0-36.0); Mean Corpuscular Hemoglobin 31.7 pg (27.0-31.0); Mean Corpuscular Volume 92.9 fL (78.0-98.0); Platelet Count 128 thou/uL (130-400); RBC Distribution Width 11.5 % (11.5-14.5); Red Blood Cell (RBC) Count 3.31 mill/uL (4.20-5.40); White Blood Cell (WBC) Count 5.7 thou/uL (4.8-10.8)
[2019-10-27 06:23] LABS: Anion Gap 12 mmol/L (10-20); BUN (Urea Nitrogen) 36 mg/dL (9.8-20.1); Calc. Creatinine Clearance 42 mL/min (70-130); Calcium 9.4 mg/dL (7.8-10.44); Carbon Dioxide 25 mmol/L (23-31); Chloride 101 mmol/L (98-107); Estimated GFR-MDRD 43; Glucose 116 mg/dL (83-110); Potassium 4.2 mmol/L (3.5-5.1); Sodium 134 mmol/L (136-145)
[2019-10-27] MEDS: traMADol HCl 50 MG TAB PO PRN (06:33)
--- NOTE | 2019-10-27 07:05 | PRG ---
DATE OF SERVICE: 10/26/2019 SUBJECTIVE: Ms. Melendez feels well. She is eating. Her blood pressures continue to run low, 92/56 to 105/104. She remains off diuretic. She is receiving albumin. She had 3 L of ascitic fluid removed today. Weight today 158, recorded same as yesterday. OBJECTIVE: ABDOMEN: Soft and nontender. There is minimal ascites present. LABORATORY DATA: Sodium 136, potassium 4, BUN and creatinine are 31 and 1.15. Albumin was 3.7 on 10/24. ASSESSMENT: The patient is doing well after the repair of her hernia that ruptured umbilical and spilled ascites. Her renal function is stable. RECOMMENDATIONS: I think she can go home with outpatient drainage of her catheter under sterile conditions on Wednesday and then again on Wednesday. After that, hopefully, she can go back to just her drainage paracentesis, but would defer that to Dr. Ureña. When she goes to have the fluid drained, it will probably need to be done by someone who has experience in dealing with the dialysis peritoneal catheter so it can be done sterilely. She will need to receive 25 g albumin with each time fluid is removed. The goal will be to remove 3 L each time. I talked with the discharge urban planning professor for this, hopefully we can get that arranged tomorrow and she can go home tomorrow. Job ID: [id number]
--- NOTE | 2019-10-27 07:09 | PDOC.GSPN ---
Surgery Progress Note: Subj - Subjective Narrative: Ms. Melendez is an 79 F POD#9 following open umbilical repair without mesh and laparoscopic placement of peritoneal dialysis catheter. She is feeling fine this AM. She denies abdominal pain but reports pain in her ankles, mainly the left ankle, that she noticed when she woke up this morning. Her nurse propped up her feet with a pillow and gave her tramadol, and this has helped some. 2450 ml of fluid was drained through PD catheter yesterday. She is feeling less abdominal fullness this morning. She is tolerating her regular diet and denies nausea, vomiting. She is having BMs and voiding without difficulty. The wound on her buttock was redressed yesterday. She has been ambulating in the halls and working with PT. Surgery Progress Note: Obj - Vital signs Vital signs: Vital Signs - Most Recent Temp Pulse Resp BP Pulse Ox 98.1 F 68 20 92/57 L 95 10/27/19 04:08 10/27/19 04:08 10/27/19 04:08 10/27/19 04:08 10/27/19 04:08 - Physical Exam General: no distress Cardiovascular: regular rate and rhythm Respiratory: clear to auscultation Abdomen: soft, nondistended, positive bowel sounds, appropriately tender Musculoskeletal: other (Feet propped up on pillow. Mild tenderness with palpation of ankles bilaterally, more so on left than right ankle. Mild swelling. No erythema noted. Pain with passive dorsiflexion of left ankle.) Wound: healing well, other (PD catheter in place) Surgery Progress Note: Results - Labs Result Diagrams: 10/27/19 05:17 10/27/19 05:17 Lab results: Laboratory Results - last 24 hr 10/26/19 10/27/19 10/27/19 19:38 04:02 05:17 WBC RBC Hgb Hct MCV MCH MCHC RDW Plt Count MPV Neutrophils % Neutrophils % (Manual) Lymphocytes % Monocytes % Eosinophils % Basophils % Neutrophils # Lymphocytes # Monocytes # Eosinophils # Basophils # Sodium 134 L Potassium 4.2 Chloride 101 Carbon Dioxide 25 Anion Gap 12 BUN 36 H Creatinine 1.20 H Estimated GFR (MDRD) 43 Glucose 116 H POC Glucose 200 H 125 H Calcium 9.4 10/27/19 05:17 WBC 5.7 RBC 3.31 L Hgb 10.5 L Hct 30.7 L MCV 92.9 MCH 31.7 H MCHC 34.1 RDW 11.5 Plt Count 128 L MPV 11.0 H Neutrophils % 73.6 Neutrophils % (Manual) Not Reportable Lymphocytes % 10.3 L Monocytes % 11.1 H Eosinophils % 3.1 Basophils % 1.9 H Neutrophils # 4.2 Lymphocytes # 0.6 L Monocytes # 0.6 H Eosinophils # 0.2 Basophils # 0.1 Sodium Potassium Chloride Carbon Dioxide Anion Gap BUN Creatinine Estimated GFR (MDRD) Glucose POC Glucose Calcium Surgery Progress Note: A/P - Plan Plan: Ms. Melendez is an 79 F POD#9 following open umbilical repair without mesh and laparoscopic placement of peritoneal dialysis catheter. 1. 2450 ml drained yesterday through PD catheter. Abdomen soft. Patient notes decreased fullness today. Possible removal of PD catheter in outpatient setting. 2. Patient notes bilateral ankle pain this morning, mostly left ankle. Pain is relieved some with elevation and tramadol. Continue to monitor. 3. Monitor wound on buttock and continue with ointment and dressing. 4. Renal function is being followed. BUN 36 Cre 1.2 5. Patient tolerating diet well. Continue low sodium diet. 6. Encourage continued ambulation and work with PT.
[2019-10-27] MEDS: Polyethylene Glycol 3350 17 GM Packet PO SCH (08:41)
[2019-10-27] MEDS: Midodrine HCl 5 MG TAB PO SCH ×2 (08:42→15:14)
[2019-10-27] MEDS: Mupirocin 2% Ointment 22 GM Tube TOP SCH (08:42)
[2019-10-27] MEDS: Calcium Carbonate + Vit D 1 TAB PO SCH (08:42)
[2019-10-27] MEDS: Zinc Sulfate 220 MG CAP PO SCH ×2 (08:42→15:16)
[2019-10-27] MEDS: Multivitamin W/ Minerals 1 TAB PO SCH (08:42)
[2019-10-27] MEDS: (Apremilast [Otezla] 30 MG) PO SCH (08:43)
[2019-10-27] MEDS: Rifaximin 550 MG TAB PO SCH (08:45)
[2019-10-27] MEDS: Pregabalin 75 MG CAP PO SCH (08:47)
--- NOTE | 2019-10-27 17:49 | PRG ---
DATE OF SERVICE: 10/27/2019 SUBJECTIVE: Ms. Melendez is going home today. She has been eating well. She did have 2.4 L taken off yesterday. OBJECTIVE: VITAL SIGNS: Blood pressure is running from 92 to 111 over 57 to 67, pulse 87, respirations 18. GENERAL: She is alert and oriented to person, place, and time. ABDOMEN: Soft and nontender. The repair of the umbilical hernia looks good. She has no leaking of fluid around that area. LABORATORY DATA: White count 5.7, hemoglobin 10.5, and platelet count 128. BUN and creatinine are 36 and 1.2, sodium 134, albumin was 3.7 on the , it was not rechecked today. ASSESSMENT: 1. Ruptured skin wound over umbilical hernia status post repair. 2. Cirrhosis with ascites, stable. 3. Stable renal function. 4. Blood pressure is now a little bit low. She is started on midodrine. PLAN: She is going to go home today on midodrine 5 mg p.o. t.i.d. We are going to hold her Lasix and Aldactone. She will continue her other home medications and Xifaxan. She will be scheduled for Wednesday for repeat paracentesis through her catheter tube. If she is doing fine, we can do that again on later in the week. If we need to take off more fluid in between, the goal will be to keep the pressure off the hernia repair. Hopefully within a week or two, we will take her PD catheter out and go back to a paracentesis with Radiology. I will plan on seeing her in the infusion center on Wednesday morning at 8 when she is getting her fluid removed and see how she is progressing. Job ID: [id number]
[2019-10-27 18:34] VITALS: TEMP 98.4
[2019-10-27 18:35] VITALS: BP 104/61
== END 2019-10-27 18:40 | disposition home or self-care (01) | DRG 354 ==
LOC: ERS 18:06 → T4-B 10-17 00:54
PROVIDERS: ADMIT Internal Medicine; ATTEND Internal Medicine
PROC: 0WQF0ZZ Repair Abdominal Wall, Open Approach (ICD-10-PCS; principal; 2019-10-18)
PROC: 0WHG43Z Insertion of Infusion Device into Peritoneal Cavity, Percutaneous Endoscopic Approach (ICD-10-PCS; 2019-10-18)
PROC: 3E1M39Z Irrigation of Peritoneal Cavity using Dialysate, Percutaneous Approach (ICD-10-PCS; 2019-10-20)
DX: K42.9 Umbilical hernia without obstruction or gangrene (principal); R18.8 Other ascites; K71.7 Toxic liver disease with fibrosis and cirrhosis of liver; T45.1X5A Adverse effect of antineoplastic and immunosuppressive drugs, initial encounter; L40.9 Psoriasis, unspecified; N18.9 Chronic kidney disease, unspecified; Z91.040 Latex allergy status; Z88.8 Allergy status to other drugs, medicaments and biological substances; Z88.1 Allergy status to other antibiotic agents; Z79.899 Other long term (current) drug therapy; Z79.84 Long term (current) use of oral hypoglycemic drugs; Z90.49 Acquired absence of other specified parts of digestive tract; Z90.710 Acquired absence of both cervix and uterus
CPT/HCPCS: 36415; 36416; 74177; 80048; 80053; 80076; 82565; 84520; 85007; 85025; 85027; 85060; 89051; 99284; J1644; J2001; J2270; J2405; J2704; J3010; P9047; Q9967; S0020

== ENCOUNTER 2019-11-07 07:40 | Day surgery (SDC) | payer MEDICARE ==
[2019-11-06 08:23] VITALS: BMI 28.9
[2019-11-07] MEDS ORDERED: Lidocaine 1% PF 5 ML VIAL ONE (07:48)
[2019-11-07] MEDS ORDERED: Albumin 25% 200 ML ONE (07:48)
[2019-11-07] MEDS ORDERED: Sodium Bicarbonate 2.5 MEQ/5 ML VIAL ONE (07:48)
[2019-11-07 08:10] LABS: Anion Gap 13 mmol/L (10-20); BUN (Urea Nitrogen) 49 mg/dL (9.8-20.1); Calc. Creatinine Clearance 0 mL/min (70-130); Calcium 9.5 mg/dL (7.8-10.44); Carbon Dioxide 21 mmol/L (23-31); Chloride 105 mmol/L (98-107); Estimated GFR-MDRD 32; Glucose 210 mg/dL (83-110); Sodium 135 mmol/L (136-145)
[2019-11-07 09:43] VITALS: BP 103/51; TEMP 97.8
--- NOTE | 2019-11-07 10:04 | ULT ---
Exam: Ultrasound guided paracentesis HISTORY: Ascites COMPARISON: October 10, 2019 FINDINGS: Successful ultrasound-guided paracentesis. Total of 4 L of normal appearingascites was aspi rated. TECHNIQUE: Consent obtained reformatory ultrasound-guided paracentesis. Right lower quadrant was deem ed appropriate. Skin was prepped and draped in a sterile fashion. 1% lidocaine, buffered with sodium bicarbonate was used for local anesthesia. Under ultrasound guidance, a 5 Swedish 7 cm Yueh cat heter is advanced in the peritoneal space. A total of 4 L of normal appearingascites was aspirated. No immediate or postprocedural complications IMPRESSION: Successful ultrasound-guided paracentesis.
== END 2019-11-07 09:25 | disposition home or self-care (01) ==
LOC: ULT 07:40
PROVIDERS: ATTEND Internal Medicine Gastroenterology
PROC: 0W9G3ZZ Drainage of Peritoneal Cavity, Percutaneous Approach (ICD-10-PCS; principal; 2019-11-07)
DX: K74.60 Unspecified cirrhosis of liver (principal); R18.8 Other ascites; I12.0 Hypertensive chronic kidney disease with stage 5 chronic kidney disease or end stage renal disease; E11.22 Type 2 diabetes mellitus with diabetic chronic kidney disease; N18.6 End stage renal disease; L40.50 Arthropathic psoriasis, unspecified; Z79.84 Long term (current) use of oral hypoglycemic drugs; Z79.899 Other long term (current) drug therapy; Z88.8 Allergy status to other drugs, medicaments and biological substances
CPT/HCPCS: 49083; 80048; P9047; 36415; J2001

== ENCOUNTER 2019-11-14 07:29 | Day surgery (SDC) | payer MEDICARE ==
[2019-11-13 10:54] VITALS: BMI 28.9
[2019-11-14] MEDS ORDERED: Sodium Bicarbonate 2.5 MEQ/5 ML VIAL ONE (07:33)
[2019-11-14] MEDS ORDERED: Albumin 25% 200 ML ONE (07:33)
[2019-11-14] MEDS ORDERED: Lidocaine 1% PF 5 ML VIAL ONE (07:33)
[2019-11-14 07:48] LABS: #Eosinphils 0.1 thou/uL (0.0-0.7); #Lymphocytes 0.7 thou/uL (1.20-3.40); #Monocytes 0.3 thou/uL (0.11-0.59); #Neutrophils 4.2 thou/uL (1.40-6.50); %Basophils 0.3 % (0.0-1.0); %Eosinophils 1.7 % (0.0-10.0); %Monocytes 5.7 % (0.0-10.0); %Neutrophils 79.3 % (42.0-75.0); Hemoglobin 11.7 g/dL (12.0-16.0); Mean Corpuscular HGB CONC 33.1 g/dL (32.0-36.0); Mean Corpuscular Hemoglobin 30.7 pg (27.0-31.0); Mean Corpuscular Volume 92.6 fL (78.0-98.0); Mean Platelet Volume 11.1 fL (7.4-10.4); Platelet Count 119 thou/uL (130-400); RBC Distribution Width 12.1 % (11.5-14.5); Red Blood Cell (RBC) Count 3.81 mill/uL (4.20-5.40); White Blood Cell (WBC) Count 5.3 thou/uL (4.8-10.8)
[2019-11-14 07:55] LABS: INR-International Normal Ratio 1.1
[2019-11-14 07:56] LABS: PTT 35.3 SEC (22.9-36.1)
[2019-11-14 08:14] LABS: ALT (SGPT) 22 U/L (8-55); AST (SGOT) 31 U/L (5-34); Albumin 3.8 g/dL (3.4-4.8); Alkaline Phosphatase 124 U/L (40-110); Anion Gap 13 mmol/L (10-20); BUN (Urea Nitrogen) 44 mg/dL (9.8-20.1); Bilirubin, Total 0.6 mg/dL (0.2-1.2); Calc. Creatinine Clearance 43 mL/min (70-130); Calcium 10.1 mg/dL (7.8-10.44); Carbon Dioxide 21 mmol/L (23-31); Chloride 110 mmol/L (98-107); Estimated GFR-MDRD 40; Globulin 2.8 g/dL (2.4-3.5); Glucose 143 mg/dL (83-110); Potassium 4.3 mmol/L (3.5-5.1); Protein, Total 6.6 g/dL (6.0-8.3); Sodium 140 mmol/L (136-145)
--- NOTE | 2019-11-14 10:46 | ULT ---
Sonographic guided paracentesis HISTORY: Recurrent ascites. FINDINGS: After explaining the procedure and answering all questions, sonographic survey showed a lar ge amount of free fluid throughout the abdomen. Sterile technique, buffered local anesthesia, sonographic guidance, and a right lateral approach were used to carefully advance a 19-gauge Yueh nee dle and catheter into the free fluid. Catheter was left to drain a total volume of 5.6 L slightly cloudy yellow liquid. Catheter was removed with minimal fluid remaining. Patient tolerated the proced ure well and was dismissed in good condition. IMPRESSION: Technically successful sonographic guided paracentesis.
[2019-11-14 11:00] VITALS: BP 103/53; TEMP 97.8
== END 2019-11-14 09:15 | disposition home or self-care (01) ==
LOC: ULT 07:29
PROVIDERS: ATTEND Internal Medicine Gastroenterology
PROC: 0W9G3ZZ Drainage of Peritoneal Cavity, Percutaneous Approach (ICD-10-PCS; principal; 2019-11-14)
DX: K74.60 Unspecified cirrhosis of liver (principal); R18.8 Other ascites; K76.0 Fatty (change of) liver, not elsewhere classified; I10 Essential (primary) hypertension; E11.9 Type 2 diabetes mellitus without complications; D64.9 Anemia, unspecified; Z88.6 Allergy status to analgesic agent; Z91.040 Latex allergy status
CPT/HCPCS: 49083; 80053; 85025; 85610; 85730; P9047; J2001

== ENCOUNTER 2019-11-21 07:22 | Day surgery (SDC) | payer MEDICARE ==
[2019-11-21] MEDS ORDERED: Albumin 25% 200 ML ONE (07:40)
[2019-11-21] MEDS ORDERED: Sodium Bicarbonate 2.5 MEQ/5 ML VIAL ONE (07:40)
[2019-11-21] MEDS ORDERED: Lidocaine 1% PF 5 ML VIAL ONE (07:40)
[2019-11-21 08:00] LABS: Anion Gap 16 mmol/L (10-20); BUN (Urea Nitrogen) 48 mg/dL (9.8-20.1); Calc. Creatinine Clearance 0 mL/min (70-130); Calcium 9.8 mg/dL (7.8-10.44); Carbon Dioxide 18 mmol/L (23-31); Chloride 107 mmol/L (98-107); Estimated GFR-MDRD 35; Glucose 154 mg/dL (83-110); Potassium 4.5 mmol/L (3.5-5.1); Sodium 136 mmol/L (136-145)
--- NOTE | 2019-11-21 09:04 | ULT ---
Exam: Ultrasound guided paracentesis HISTORY: Ascites COMPARISON: 11/14/2019 FINDINGS: Successful ultrasound-guided paracentesis. Total of 5800 mL of yellow color ascites was asp irated. TECHNIQUE: Consent obtained reformatory ultrasound-guided paracentesis. Right lower quadrant was deem ed appropriate. Skin was prepped and draped in a sterile fashion. 1% lidocaine, buffered with sodium bicarbonate was used for local anesthesia. Under ultrasound guidance, a 5 [place]ian 7 cm Yueh cat heter is advanced in the peritoneal space. A total of 5800 mL of yellow color ascites was aspirated. No immediate or postprocedural complications IMPRESSION: Successful ultrasound-guided paracentesis.
[2019-11-21 09:13] VITALS: BMI 28.9
[2019-11-21 09:27] VITALS: BP 120/61; TEMP 97.6
== END 2019-11-21 09:00 | disposition home or self-care (01) ==
LOC: ULT 07:22
PROVIDERS: ATTEND Internal Medicine Gastroenterology
PROC: 0W9G3ZZ Drainage of Peritoneal Cavity, Percutaneous Approach (ICD-10-PCS; principal; 2019-11-21)
DX: K74.60 Unspecified cirrhosis of liver (principal); R18.8 Other ascites; K72.90 Hepatic failure, unspecified without coma; M62.84 Sarcopenia; K76.7 Hepatorenal syndrome; E11.9 Type 2 diabetes mellitus without complications; L40.50 Arthropathic psoriasis, unspecified; E78.00 Pure hypercholesterolemia, unspecified; I10 Essential (primary) hypertension; Z79.84 Long term (current) use of oral hypoglycemic drugs; Z79.899 Other long term (current) drug therapy; Z88.8 Allergy status to other drugs, medicaments and biological substances; Z91.048 Other nonmedicinal substance allergy status
CPT/HCPCS: 49083; 80048; P9047; 36415; J2001

== ENCOUNTER 2019-11-22 10:46 | Day surgery (SDC) | payer MEDICARE ==
[2019-11-22] MEDS ORDERED: Lidocaine 1% w/Epinephrine 1:100K 20 ML VIAL ONE (11:04)
[2019-11-22] MEDS ORDERED: Bupivacaine 0.25% HCL 30 ML VIAL ONE (11:04)
[2019-11-22] MEDS ORDERED: Fentanyl 100 MCG/2 ML VIAL ONE (11:51)
[2019-11-22] MEDS ORDERED: Ondansetron PF 4 MG/2 ML Vial ONE (12:55)
--- NOTE | 2019-11-22 17:49 | OP ---
DATE OF PROCEDURE: 11/22/2019 PREOPERATIVE DIAGNOSIS: History of ascites with umbilical hernia repair (tunneled PD catheter placed for ascites control in the perioperative period). POSTOPERATIVE DIAGNOSIS: History of ascites with umbilical hernia repair (tunneled PD catheter placed for ascites control in the perioperative period). PROCEDURE PERFORMED: Removal of tunneled peritoneal dialysis catheter with subcutaneous cuff. ANESTHESIA: General. ESTIMATED BLOOD LOSS: Minimal. COMPLICATIONS: None. SPECIMENS: None. DESCRIPTION OF PROCEDURE: The patient was taken to the operating room and laid supine on the operating room table. After general anesthetic was obtained, her abdomen was prepped and draped in a sterile fashion. The wound exit site for PD catheter was enlarged slightly. The outside cuff was easily dissected away from scar tissue and able to be removed. Deep dissection was then performed down near the fascia, where the internal cuff is. After all the scar tissue was cut away from the edges, the catheter was able to be pulled and removed in its entirety. The deep tissues are closed using Vicryl suture. Subcutaneous tissues and skin were left open after being irrigated. Sterile dressings were placed. The patient was sent to Recovery in stable condition. All instrument counts, needle counts, and lap counts were correct. Job ID: [id number]
== END 2019-11-22 14:50 | disposition home or self-care (01) ==
LOC: SDC 10:46
PROVIDERS: ATTEND Surgery
PROC: 0WPG03Z Removal of Infusion Device from Peritoneal Cavity, Open Approach (ICD-10-PCS; principal; 2019-11-22)
DX: K74.60 Unspecified cirrhosis of liver (principal); R18.8 Other ascites; K75.81 Nonalcoholic steatohepatitis (NASH); E78.5 Hyperlipidemia, unspecified; M19.90 Unspecified osteoarthritis, unspecified site; E11.9 Type 2 diabetes mellitus without complications; G89.29 Other chronic pain; Z79.84 Long term (current) use of oral hypoglycemic drugs; Z79.899 Other long term (current) drug therapy; Z88.8 Allergy status to other drugs, medicaments and biological substances; Z91.048 Other nonmedicinal substance allergy status
CPT/HCPCS: J0690; J2405; J3010; S0020

== ENCOUNTER 2019-11-22 17:06 | Inpatient (IN) | payer MEDICARE ==
[2019-11-22] MEDS ORDERED: Dextrose 50% Abboject 50 ML SYRINGE IVP PRN (17:52)
[2019-11-22] MEDS ORDERED: Dextrose 5% in Water 1,000 ML IV PRN ×2 (17:52→19:14)
[2019-11-22] MEDS ORDERED: Insulin Regular 300 UNITS/3 ML VIAL SC PRN ×2 (17:52→19:14)
[2019-11-22 18:21] VITALS: BMI 26.2
[2019-11-22 18:58] LABS: INR-International Normal Ratio 1.1; Prothrombin Time 13.8 SEC (12.0-14.7)
[2019-11-22] MEDS ORDERED: Acetaminophen 650 MG Suppository PR PRN (19:03)
[2019-11-22 19:10] LABS: Potassium 4.3 mmol/L (3.5-5.1); Sodium 137 mmol/L (136-145)
[2019-11-22 19:11] LABS: ALT (SGPT) 22 U/L (8-55); AST (SGOT) 33 U/L (5-34); Albumin 3.6 g/dL (3.4-4.8); Alkaline Phosphatase 110 U/L (40-110); Anion Gap 13 mmol/L (10-20); BUN (Urea Nitrogen) 37 mg/dL (9.8-20.1); Bilirubin, Total 0.8 mg/dL (0.2-1.2); Calc. Creatinine Clearance 39 mL/min (70-130); Calcium 9.4 mg/dL (7.8-10.44); Carbon Dioxide 20 mmol/L (23-31); Chloride 108 mmol/L (98-107); Estimated GFR-MDRD 40; Globulin 2.4 g/dL (2.4-3.5); Glucose 107 mg/dL (83-110)
--- NOTE | 2019-11-22 19:20 | PDOC.HHP ---
Hospitalist HPI - History of Present Illness Leaking from catheter insertion site History of Present Illness: Patient admitted to the hospital from the office of Dr. Kramer after noted to have an elevated creat from baseline and with complaints of leaking serosanguinous fluid from the PD catheter insertion site. She apparently had this removed by Dr. Ureña today. It was initially placed due to her history of ascites after she underwent an umbilical hernia repair to assist with control of her ascites during the immediate postoperative period. According to the patient she would be able to get 1.5 to 2 L out through the peritoneal dialysis catheter, and normally she has 5-7L removed during weekly paracentesis (every Wednesday). Patient denies any significant abdominal pain. States she has however had discomfort in her feet with increased swelling. This has been a chronic issue for her. Her daughter noted slight erythema and was concerned for possible skin infection but there has been no warmth and no fevers. Patient reports feeling thirst and hungry. She has not been able to eat due to fasting for the procedure done earlier today and then coming into the hospital. Denies any issues with her appetite. No n/v. No abdominal distention, rigidity or pain. Hospitalist ROS - Review of Systems Constitutional: denies: fever, chills, sweats, weakness, malaise, other Eyes: denies: pain, vision change, conjunctivae inflammation, eyelid inflammation, redness, other ENT: reports: other (dry mouth). denies: ear pain, ear discharge, nose pain, nose discharge, nose congestion, mouth pain, mouth swelling, throat pain, throat swelling Respiratory: denies: cough, dry, shortness of breath, hemoptysis, SOB with excertion, pleuritic pain, sputum, wheezing, other Cardiovascular: denies: chest pain, palpitations, orthopnea, paroxysmal noc. dyspnea, edema, light headedness, other Gastrointestinal: reports: other (leaking of serosanguinous fluid from PD catheter insertion site.) Genitourinary: reports: other (decreased urine output today, attributed to not eating/drinking since last night while fasting.) Musculoskeletal: reports: other (bilateral foot pain, improved since swelling improved.). denies: neck pain, shoulder pain, arm pain, back pain, hand pain, leg pain, foot pain Neurological: denies: weakness, numbness, incoordination, change in speech, confusion, seizures, other Hospitalist History - Past Medical History Heme/Onc: reports: Cancer (History of melanoma) Hepatobiliary: reports: Cirrhosis Musculoskeletal: reports: Chronic low back pain Endocrine: reports: Diabetes Dermatology: reports: Psoriasis - Past Surgical History Past Surgical History: reports: Cholecystectomy, Cataract Removal, Hysterectomy Other Surgical History: Neck surgery Lithotripsy for bladder stones Melanoma removed from arm Umbilical hernia repair with PD catheter placement Removal of PD catheter today 11/21. - Family History Family History: reports: no pertinent history - Social History Smoking Status: Never smoker Alcohol: reports: None Drugs: reports: none Living Situation: With Family Activity level: uses cane/walker (Uses a cane to walk due to chronic back pain) - Exam General Appearance: NAD, awake alert Eye: PERRL, anicteric sclera ENT: dry oral mucosa Neck: supple, symmetric, no lymphadenopathy Heart: RRR, no murmur, no gallops, no rubs, normal peripheral pulses Respiratory: CTAB, no wheezes, no rales, no ronchi, normal chest expansion, no tachypnea Gastrointestinal: soft, non-tender, normal bowel sounds, no guarding, no rigidity Gastrointestinal - other findings: pressure dressing in place, no active draining from PD catheter site Extremities - other findings: very sligth erythema in right ankle, no warmth to touch, bilateral swelling Skin: normal turgor, no rashes Neurological: cranial nerve grossly intact, normal sensation to touch, no weakness Musculoskeletal: normal tone, normal strength, no muscle wasting Psychiatric: normal affect, normal behavior, A&O x 3 Hospitalist Results - Labs Result Diagrams: 11/22/19 19:19 11/22/19 18:40 Lab results: Sodium 137 mmol/L (136-145) 11/22/19 18:40 Potassium 4.3 mmol/L (3.5-5.1) 11/22/19 18:40 Chloride 108 mmol/L (98-107) H 11/22/19 18:40 Carbon Dioxide 20 mmol/L (23-31) L 11/22/19 18:40 BUN 37 mg/dL (9.8-20.1) H 11/22/19 18:40 Creatinine 1.29 mg/dL (0.6-1.1) H 03/18/20 18:40 Glucose 107 mg/dL (83-110) 11/22/19 18:40 Calcium 9.4 mg/dL (7.8-10.44) 11/22/19 18:40 Total Bilirubin 0.8 mg/dL (0.2-1.2) 11/22/19 18:40 AST 33 U/L (5-34) 11/22/19 18:40 ALT 22 U/L (8-55) 11/22/19 18:40 Alkaline Phosphatase 110 U/L (40-110) 11/22/19 18:40 Serum Total Protein 6.0 g/dL (6.0-8.3) 11/22/19 18:40 Albumin 3.6 g/dL (3.4-4.8) 11/22/19 18:40 Hospitalist H&P A/P - Problem (1) Ascites Code(s): R18.8 - OTHER ASCITES Status: Acute (2) Liver cirrhosis Code(s): K74.60 - UNSPECIFIED CIRRHOSIS OF LIVER Status: Chronic (3) Swelling of both lower extremities Code(s): M79.89 - OTHER SPECIFIED SOFT TISSUE DISORDERS Status: Chronic (4) Acute on chronic renal insufficiency Code(s): N28.9 - DISORDER OF KIDNEY AND URETER, UNSPECIFIED; N18.9 - CHRONIC KIDNEY DISEASE, UNSPECIFIED Status: Acute (5) Diabetes mellitus Code(s): E11.9 - TYPE 2 DIABETES MELLITUS WITHOUT COMPLICATIONS Status: Chronic - Plan Plan: Patient status post removal of PD catheter (placed for ascites control) today, with serosanguinous fluid leaking. Wound packed with pressure bandage applied. Monitor, consult Dr. Ureña if indicated. Albumin ordered by Dr. Kramer. Repeat CMP and CBC in am. Monitor renal function. Monitor blood glucose. ISS initiated. Add-on lactic acid and procalcitonin. Monitor for any signs of infection. CODE STATUS: FULL Surrogate decision maker: Daughter Tana Hodge
[2019-11-22 19:52] LABS: Band 1 % (5-11); Eosinophils 1 % (0-10); Hypochromia SLIGHT = 6-15 cells (100X) (0-5/hpf); Large Platelets SLIGHT; Lymphocytes 17 % (21-51); MDiff Complete? YES; Mean Corpuscular HGB CONC 31.4 g/dL (32.0-36.0); Mean Corpuscular Hemoglobin 29.1 pg (27.0-31.0); Mean Corpuscular Volume 92.6 fL (78.0-98.0); Mean Platelet Volume 11.4 fL (7.4-10.4); Monocytes 10 % (0-10); Neutrophil 67 % (42-75); Ovalocytes SLIGHT = 2-5 cells (100X) (0-1/hpf); Platelet Count 89 thou/uL (130-400); Platelet Morphology Comment Appears Decreased; Polychromasia SLIGHT = 2-3 cells (100X) (0-2/hpf); RBC Distribution Width 12.5 % (11.5-14.5); Reactive Lymphocytes 4 % (0-10); Red Blood Cell (RBC) Count 3.79 mill/uL (4.20-5.40); Tear Drops SLIGHT = 2-5 cells (100X) (0-1/hpf); White Blood Cell (WBC) Count 3.8 thou/uL (4.8-10.8)
[2019-11-22] MEDS ORDERED: Apremilast [Otezla] 30 MG PO SCH (21:00)
[2019-11-22] MEDS ORDERED: Midodrine HCl 5 MG TAB PO SCH (21:00)
[2019-11-22] MEDS ORDERED: Rifaximin 550 MG TAB PO SCH (21:00)
[2019-11-22 21:41] LABS: Lactic Acid 2.4 mmol/L (0.5-2.2)
[2019-11-22] MEDS: Albumin 25% 25 GM/100 ML BOT IVPB SCH (21:53)
[2019-11-22] MEDS: Zinc Sulfate 220 MG CAP PO SCH (22:02)
[2019-11-22] MEDS: Midodrine HCl 5 MG TAB PO SCH (22:02)
[2019-11-22] MEDS: Pregabalin 75 MG CAP PO SCH (22:03)
[2019-11-22] MEDS: Rifaximin 550 MG TAB PO SCH (22:03)
[2019-11-22] MEDS: Sodium Chloride 0.9% 1,000 ML IV SCH (22:42)
[2019-11-23] MEDS: Acetaminophen 325 MG TAB PO PRN ×2 (01:30→21:10)
[2019-11-23 02:03] LABS: Bacteria/HPF None Seen HPF (None Seen); Bilirubin Negative (Negative); Blood, Urine Negative (Negative); Clarity Clear (Clear); Glucose, Urine (Dipstick) Normal (Negative); Leukocyte 250 Leu/uL (Negative); Nitrite Negative (Negative); Protein, Urine (Dipstick) 20 mg/dL (Neg-Trace); RBC/HPF 0-3 HPF (0-3); Squamous Epithelial 0-3 HPF (0-3); Urobilinogen Normal mg/dL (Less than 2)
[2019-11-23 02:05] LABS: Urine Culture Reflex Yes Yes
[2019-11-23] MEDS: Albumin 25% 25 GM/100 ML BOT IVPB SCH ×4 (03:33→20:59)
[2019-11-23 05:06] LABS: #Eosinphils 0.1 thou/uL (0.0-0.7); #Lymphocytes 0.6 thou/uL (1.20-3.40); #Monocytes 0.4 thou/uL (0.11-0.59); #Neutrophils 2.1 thou/uL (1.40-6.50); %Basophils 0.3 % (0.0-1.0); %Eosinophils 4.3 % (0.0-10.0); %Lymphocytes 17.4 % (21.0-51.0); %Monocytes 12.4 % (0.0-10.0); %Neutrophils 65.5 % (42.0-75.0); Hemoglobin 8.9 g/dL (12.0-16.0); Mean Corpuscular HGB CONC 33.5 g/dL (32.0-36.0); Mean Corpuscular Hemoglobin 30.7 pg (27.0-31.0); Mean Corpuscular Volume 91.7 fL (78.0-98.0); Mean Platelet Volume 11.3 fL (7.4-10.4); Platelet Count 81 thou/uL (130-400); RBC Distribution Width 12.3 % (11.5-14.5); Red Blood Cell (RBC) Count 2.91 mill/uL (4.20-5.40); White Blood Cell (WBC) Count 3.3 thou/uL (4.8-10.8)
[2019-11-23 05:30] LABS: ALT (SGPT) 13 U/L (8-55); AST (SGOT) 26 U/L (5-34); Albumin 3.6 g/dL (3.4-4.8); Alkaline Phosphatase 86 U/L (40-110); Anion Gap 13 mmol/L (10-20); BUN (Urea Nitrogen) 34 mg/dL (9.8-20.1); Bilirubin, Total 0.6 mg/dL (0.2-1.2); Calc. Creatinine Clearance 45 mL/min (70-130); Calcium 8.7 mg/dL (7.8-10.44); Carbon Dioxide 19 mmol/L (23-31); Chloride 111 mmol/L (98-107); Estimated GFR-MDRD 47; Globulin 1.8 g/dL (2.4-3.5); Glucose 91 mg/dL (83-110); Potassium 4.1 mmol/L (3.5-5.1); Protein, Total 5.4 g/dL (6.0-8.3); Sodium 139 mmol/L (136-145)
--- NOTE | 2019-11-23 09:19 | HP ---
REASON FOR ADMISSION: Cirrhosis with dehydration and [id number] renal failure, leaking ascites. HISTORY OF PRESENT ILLNESS: Ms. Melendez is a pleasant 79-year-old who has cirrhosis from unknown etiology felt to be possibly fatty liver versus possibly an effect from autoimmune overlap. In the event, she has had slow decompensation over the years with refractory ascites and muscle weight and sarcopenia. More recently, she had complications of umbilical hernia, which eroded and caused her a fluid leak spontaneously. This required emergent surgical repair and hospitalization for about a week at which time, she had a paracentesis to let the area heal. She has done well with this and had a catheter removed today from her abdomen. A PD catheter that had been placed at time of surgery to intermittently let fluid pressure off her abdomen so that the wound would heal and have ascites leak through the surgical closure. The surgery was successful and that has worked well. She has resumed paracentesis once weekly with albumin infusions at [facility]. She had issues with hypotension, was started on midodrine, but she has had slowly worsening renal function with a creatinine of 1.2 back on 10/27 and it was 1.29 on 11/13. The BUN of 40 and creatinine was 1.43 on 11/20. Today, she came to the office after having her PD catheter removed from her abdomen at the surgeon's office because she was noting some worsening swelling in her legs and erythema again, she was concerned about cellulitis. She had no fever or chills. She has had no cough. She has had no melena or hematochezia, but feels weaker. She has had a gauze with pressure over the site is leaking as well with serosanguineous fluid. With the leaking fluid, worsening edema, and slight erythema of her legs, the decision has been made to place her in the hospital for observation for 24 hours with IV fluids, cultures, and labs. REVIEW OF SYSTEMS: The patient denies any recent travel to at risk countries for coronavirus. There are no household contacts who had fever, chills, or who have traveled. She has no cough. No myalgias, fever, chills, or rash. She is trying to eat as much she can. She has not had much confusion. No shortness of breath or dyspnea on exertion or melena or hematochezia. PAST MEDICAL HISTORY: 1. 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 2. Refractory ascites. 3. Cirrhosis. 4. Hepatic encephalopathy diagnosed on biopsy in 2011. 5. Diabetes type 2. 6. Hyperlipidemia. 7. Hypertension. 8. Prior history of melanoma. 9. History of psoriatic arthritis. PAST SURGICAL HISTORY: Hysterectomy, cholecystectomy, recent umbilical hernia repairs secondary to erosion and ascitic leak, spinal surgery - cervical, lithotripsy, previous endoscopic procedure, capsule endoscopy in 2017, colonoscopy in , AVM and right heart failure, EGD in 2010, gastric antral vascular ectasias. MEDICATIONS: 1. Azelastine. 2. Aspirin. 3. Caffeine p.r.n. 4. Calcium carbonate. 5. Centrum Silver. 6. Fluocinonide b.i.d. topical. 7. Glipizide 5 mg daily. 8. Metformin 500 mg b.i.d. 9. Midodrine 5 mg t.i.d. 10. Mupirocin p.r.n. 11. Nasacort p.r.n. 12. Omeprazole 20 mg a day. 13. Otezla 30 mg. 14. Pregabalin 75 mg t.i.d. 15. Tramadol. 16. Tylenol. 17. Xifaxan. 18. Zinc. ALLERGIES: CELEBREX, CRESTOR, ENBREL, AND LATEX. IMMUNIZATIONS: Flu, hep A, B, and herpes zoster. SOCIAL HISTORY: None for alcohol, drugs, or tobacco. The patient is , daughter is here at bedside. FAMILY HISTORY: Sister diagnosed with breast cancer. Mother diagnosed with pancreatic cancer. PHYSICAL EXAMINATION: VITAL SIGNS: Weight 158 this is probably about 5 to 6 pounds down from what her baseline usually is, blood pressure 118/68, O2 saturation 97%, pulse 80, temperature 97.6. GENERAL: She has muscle wasting. She looks about the same as usual. She looks a bit more fatigued today. HEENT: Her oropharynx is without lesions. Conjunctivae and sclerae are clear. LUNGS: Clear. HEART: Regular rhythm. ABDOMEN: Notable for ascites. There is a pressure dressing over where her fluid was removed, but it is all wet like it is leaking. Bowel sounds are positive. EXTREMITIES: Reveal edema, which is brawny. There is trace erythema in the legs, but they are not warm. Does not appear to be an overt cellulitis, although I guess it could be an early cellulitis. ASSESSMENT: 1. Cirrhosis. 2. Hepatorenal failure, slightly worsening renal function over the past couple of days. 3. She had a tube removed in Dr. Ureña's office. She is having significant drainage from that PD catheter removal in the abdomen, although it is . 4. Mild cellulitis and worsening edema in the legs. RECOMMENDATIONS: We will admit for 23-hour observation, see if we can get control of the leakage in her abdominal drain site, give her some IV fluids, albumin. Monitor renal function. Watch for signs of infection. If she worsens in any way, we can consider paracentesis, empiric antibiotics, or evaluation for cellulitis. Hospital stay will be less than 48 hours with IV fluids, cultures to rule out infection, and empiric albumin as well. Job ID: [id number]
[2019-11-23] MEDS: Sodium Chloride 0.9% 1,000 ML IV SCH ×2 (09:32→23:30)
[2019-11-23] MEDS: Midodrine HCl 5 MG TAB PO SCH ×3 (09:33→20:57)
[2019-11-23] MEDS: Pregabalin 75 MG CAP PO SCH ×2 (09:33→20:57)
[2019-11-23] MEDS: Calcium Carbonate 600 MG + Vit D TAB PO SCH (09:33)
[2019-11-23] MEDS: Rifaximin 550 MG TAB PO SCH ×2 (09:34→20:57)
[2019-11-23] MEDS: Zinc Sulfate 220 MG CAP PO SCH ×3 (09:34→20:57)
--- NOTE | 2019-11-23 15:37 | PRG ---
DATE OF SERVICE: 11/23/2019 SUBJECTIVE: Ms. Melendez feels better. She has been walking with Physical Therapy. She has not had any leaking of her peritoneal fluid. OBJECTIVE: VITAL SIGNS: Blood pressure is only documented 91/51, early this morning; pulse 78 now blood pressure 104/55. LUNGS: Clear. HEART: Regular rate and rhythm. ABDOMEN: Soft and nontender. There is no drainage. Her pressure bandage is doing well. EXTREMITIES: Reveal slight edema in the legs. LABORATORY DATA: White count 3.3, hemoglobin 8.9, platelet count 81,000. BUN and creatinine are 34 and 1.12. Sodium 139, potassium 4.1, albumin 3.4. ASSESSMENT: 1. Possible mild cellulitis of the legs. There is little bit warmth. She has had no fever. We will antibiotics. 2. Fluid leaking from her PD catheter site, although this seems to have resolve with pressure dressing. 3. Renal function preserved. PLAN: Hopefully, she can go home later today with oral antibiotics and follow up in the office next week. Job ID: [id number]
--- NOTE | 2019-11-23 15:52 | PDOC.HOSPP ---
- Subjective Subjective: Seen and examined. Patient with leaking from removed peritoneal dialysis catheter. She has had the wound taped up by nursing staff and she is no longer appreciating any leaking. She tells me that her ankles are less swollen than yesterday. I do not appreciate any redness or lower extremity cellulitis at this time. Normal WBC count. Afebrile. I will hold antibiotics at this time. Case was discussed with gastroenterology, recommendations appreciated. - Objective Vital Signs & Weight: Vital Signs (12 hours) Temp Pulse Resp BP Pulse Ox 11/23/19 11:48 98.4 F 73 14 104/55 L 98 11/23/19 07:40 97.9 F 76 16 100/52 L 96 Weight Weight 157 lb 9.6 oz I&O: 11/22/19 11/23/19 11/24/19 06:59 06:59 06:59 Intake Total 200 480 Balance 200 480 Result Diagrams: 11/23/19 04:50 11/23/19 04:50 Additional Labs: Accuchecks 11/23/19 11/22/19 10:28 22:09 POC Glucose 186 H 224 H Radiology Reviewed by me: Yes Hospitalist ROS - Review of Systems All other systems reviewed; all pertinent +/- noted in HPI/Subj - Medication Medications: Active Medications Generic Name Dose Route Start Last Admin Trade Name Freq PRN Reason Stop Dose Admin Acetaminophen 650 mg 11/22/19 19:03 11/23/19 01:30 Tylenol PO 650 mg Q4H PRN Administration Headache/Fever/Mild Pain (1-3) Albumin Human 25 gm 11/22/19 20:00 11/23/19 14:34 Albumin 25% IVPB 11/23/19 20:01 25 gm Q6H AURELIA Administration Calcium/Vitamin D 1 tab 11/23/19 09:00 11/23/19 09:33 Caltrate 600 + Vit D PO 1 tab DAILY AURELIA Administration Sodium Chloride 1,000 mls @ 100 mls/hr 11/22/19 19:00 11/23/19 09:32 Normal Saline 0.9% IV 1,000 mls .Q10H AURELIA Administration Insulin Human Regular 0 units 11/22/19 19:14 11/22/19 22:08 Humulin R SC 2 unit .BEDTIME SLIDING SC PRN Administration Bedtime Correctional Scale Midodrine 5 mg 11/22/19 21:00 11/23/19 14:34 Proamatine PO 5 mg TID AURELIA Administration Pantoprazole Sodium 40 mg 11/23/19 09:00 11/23/19 09:33 Protonix PO 40 mg DAILY AURELIA Administration Pregabalin 75 mg 11/23/19 09:00 11/23/19 09:33 Lyrica PO 75 mg QAM AURELIA Administration Pregabalin 150 mg 11/22/19 21:00 11/22/19 22:03 Lyrica PO 150 mg HS AURELAI Administration Rifaximin 550 mg 11/22/19 21:00 11/23/19 09:34 Xifaxan PO 550 mg BID AURELIA Administration Sodium Chloride 10 ml 11/22/19 19:03 11/23/19 09:32 Flush - Normal Saline IVF 10 ml Q12H PRN Administration Saline Flush Zinc Sulfate 220 mg 11/22/19 21:00 11/23/19 14:35 Zinc Sulfate PO 220 mg TID AURELIA Administration - Exam General Appearance: NAD, awake alert Eye: PERRL ENT: normocephalic atraumatic, moist mucosa Neck: supple, symmetric, no lymphadenopathy Heart: no murmur, no gallops, no rubs, normal peripheral pulses Respiratory: CTAB, no wheezes, no rales, no ronchi, normal chest expansion Gastrointestinal: soft, non-tender, no guarding, no rigidity, distended Gastrointestinal - other findings: Dressing over wound is clean, dry, and intact - No leaking fluid at this ti Extremities: 1+ LE edema Skin: no lesions, no rashes Skin - other findings: No LE cellulitis at this time Neurological: cranial nerve grossly intact, no focal deficits Musculoskeletal: generalized weakness Psychiatric: A&O x 3 Hosp A/P (1) Acute on chronic renal insufficiency Code(s): N28.9 - DISORDER OF KIDNEY AND URETER, UNSPECIFIED; N18.9 - CHRONIC KIDNEY DISEASE, UNSPECIFIED Status: Acute (2) Diabetes mellitus Code(s): E11.9 - TYPE 2 DIABETES MELLITUS WITHOUT COMPLICATIONS Status: Chronic (3) Swelling of both lower extremities Code(s): M79.89 - OTHER SPECIFIED SOFT TISSUE DISORDERS Status: Chronic (4) Abdominal hernia Status: Acute (5) Ascites Code(s): R18.8 - OTHER ASCITES Status: Acute (6) Liver cirrhosis Code(s): K74.60 - UNSPECIFIED CIRRHOSIS OF LIVER Status: Chronic - Plan Plan: medical unit with telemetry gastroenterology consultation, recommendations appreciated surgery consultation, recommendations appreciated with bandage to the abdomen she is no longer experiencing leaking of ascites recently removed peritoneal dialysis catheter normal WBC count afebrile mild lower extremity edema, improve sense it admission there is no signs of cellulitis at this time Hold ABX at this time Agree with stopping fluids continue other home medications as able blood pressure control blood sugar control G.I. prophylaxis
[2019-11-24] MEDS: Sodium Chloride 0.9% 1,000 ML IV SCH ×2 (05:32→11:36)
[2019-11-24 08:08] VITALS: BP 112/55; TEMP 97.9
[2019-11-24] MEDS: Rifaximin 550 MG TAB PO SCH (08:18)
[2019-11-24] MEDS: Midodrine HCl 5 MG TAB PO SCH (08:18)
[2019-11-24] MEDS: Pregabalin 75 MG CAP PO SCH (08:18)
[2019-11-24] MEDS: Calcium Carbonate 600 MG + Vit D TAB PO SCH (08:18)
[2019-11-24] MEDS: Zinc Sulfate 220 MG CAP PO SCH (08:18)
--- NOTE | 2019-11-24 17:00 | PQF ---
CLINICAL DOCUMENTATION IMPROVEMENT CLARIFICATION FORM: ICD-10 Updated PLEASE DO AN ADDENDUM TO THE PROGRESS NOTE WITH ANY DOCUMENTATION UPDATES OR ADDITIONS AND CARRY THROUGH TO DC SUMMARY. THANK YOU. DATE: 11/24/2019 ATTN: Dr. Graff Please exercise your independent, professional judgment in responding to the clarification form. Clinical indicators are provided on the bottom of this form for your review Please check appropriate box(s): [XX ] Acute on Chronic Renal Failure please specify Stage of CKD ____Stage III____ (see below) [ ] CKD without ARF/HECTOR please specify Stage of CKD [ ] Hepatorenal Syndrome [ ] Acute [ ] Acute on Chronic [ ] Chronic [ ] Other diagnosis [ ] Unable to determine In addition, please specify: Present on Admission (POA): [ XX ] Yes [ ] No [ ] Unable to determine For continuity of documentation, please document condition throughout progress notes and discharge summary. Thank You. CLINICAL INDICATORS - SIGNS / SYMPTOMS / LABS / RESULTS AND LOCATION IN 2019 LABS: Creatinine 1.29 1.12 Estimated GFR 40 47 11/21 (Williams) Reason for Admission: Cirrhosis with dehydration and acute-on- chronic renal failure, leaking ascites. Hepatorenal failure, slightly worsening renal function over the past couple of days. 11/22 (Dajuan) Acute on chronic renal insufficiency RISKS: H&P 11/21: A/P: Acute on chronic renal insufficiency. Diabetes mellitus. Plan: pt s/p removal of PD catheter (placed for ascites control) today. TREATMENT: H&P 11/21: Plan: Monitor renal function LAB Order CMP 11/21, 11/22 National Kidney Foundation Guidelines for CKD Staging Stage I Kidney damage with normal or increased GFR GFR > 90 Stage II Kidney damage with mildly decreased GFR GFR 60-89 Stage III Kidney damage with moderately decreased GFR GFR 30-59 Stage IV Kidney damage with severely decreased GFR GFR 16-29 Stage V Kidney failure GFR<15 ESRD End Stage Renal Disease On dialysis Acute Renal Failure/Acute Kidney Failure defined as: Increases in SCr by (>) 0.3 mg/dl within 48 hours OR- Increases in SCr by (>) 1.5 times baseline, known or presumed to have occurred within the prior 7 days OR- Urine volume < 0.5 ml/kg/hour for 6 hours (KDIGO supplement 2012 for RIFLE/KRISTOFER criteria) Thank you, Tana (This form is maintained as a part of the permanent medical record) 2014 [employer], [employer]. All Rights Reserved Tana Johnson RN, BSN [email or web address] Office: [phone] [facility]
--- NOTE | 2019-11-24 18:12 | DIS ---
DATE OF ADMISSION: 11/22/2019 DATE OF DISCHARGE: 11/24/2019 REASON FOR HOSPITALIZATION: Leaking of copious amounts of fluid from the abdomen after removal of the peritoneal dialysis catheter. PROCEDURES PERFORMED AND TREATMENTS RENDERED: Ms. Melendez is a very pleasant 79-year-old female with past medical history of cirrhosis who has had a peritoneal dialysis catheter placed for ascites management. The patient had an elective removal of peritoneal dialysis catheter by Dr. Ureña on 11/22/2019, please see full operative report for details. The patient arrived home when she was having copious out of ascites drained from her removed peritoneal dialysis catheter. The patient's daughter was concerned, and she brought her back to the hospital for further evaluation. The patient and her daughter were also concerned with mild lower extremity edema and possible redness to the lower extremity. There was no definitive cellulitis on the lower extremity, and she was not started on antibiotics. The patient was afebrile. The patient having a normal WBC count. The patient with chronic third spacing of fluid secondary to cirrhosis. She does developed ascites very regularly and has paracentesis performed every Wednesday. With this occasionally, the patient does get swelling of the legs as well, for which she takes diuretic therapy. The patient was monitored for greater than 48 hours and she remained afebrile throughout her hospitalization. The patient's lower extremity edema did improve with symptomatic measures and she did not require any antibiotics. The patient had blood cultures, which were obtained on admission and they were negative for growth at 48 hours. The patient had urine culture on admission, which was negative for growth at 36 hours. The patient was seen and evaluated by Gastroenterology, please see full consultation notes and progress notes for details. Gastroenterology recommending the patient was safe for discharge with close followup in the outpatient setting. CONDITION ON DISCHARGE: Stable. Of note, the patient is not having any fever on the day of discharge or throughout her hospitalization for the last 48 hours. The patient is not having any pulmonary symptoms with no coughing, congestion, or shortness of breath. The patient was educated on wound care and resources were provided to her and education again given by nursing staff prior to discharge. DISCHARGE MEDICATIONS: Please see full discharge medication list for details. As there were no changes. Specific instructions for the patient/family. 1. The patient is recommended to take all medications as directed, to be re-evaluated by primary care physician, Gastroenterology, and Surgery in the outpatient setting in the upcoming appointments. 2. The patient recommended to follow up with primary care physician in the next 5 to 7 days. 3. The patient recommended to follow up with Gastroenterology in the next 1 to 2 weeks. 4. The patient is recommended to follow up with General Surgery in the next 1 to 2 weeks. 5. The patient is recommended to have dressing clean and dry and she was educated on the proper management of this current wound by myself and nursing staff. 6. The patient recommended to return to acute care hospital immediately if signs or symptoms return, worsen, or any other new symptoms occur. Greater than 35 minutes spent coordinating care and discharge process for this patient. Job ID: [id number]
== END 2019-11-24 12:45 | disposition home or self-care (01) | DRG 920 ==
LOC: 2SW 17:18 → OBSVTOIN 17:18
PROVIDERS: ADMIT Internal Medicine; ATTEND Internal Medicine
DX: L76.82 Other postprocedural complications of skin and subcutaneous tissue (principal); R18.8 Other ascites; N17.9 Acute kidney failure, unspecified; L03.116 Cellulitis of left lower limb; L03.115 Cellulitis of right lower limb; K74.60 Unspecified cirrhosis of liver; E86.0 Dehydration; I95.9 Hypotension, unspecified; E11.22 Type 2 diabetes mellitus with diabetic chronic kidney disease; G89.29 Other chronic pain; E78.5 Hyperlipidemia, unspecified; I12.9 Hypertensive chronic kidney disease with stage 1 through stage 4 chronic kidney disease, or unspecified chronic kidney disease; N18.3 Chronic kidney disease, stage 3 (moderate); Y83.9 Surgical procedure, unspecified as the cause of abnormal reaction of the patient, or of later complication, without mention of misadventure at the time of the procedure; K46.9 Unspecified abdominal hernia without obstruction or gangrene; Z90.710 Acquired absence of both cervix and uterus; Z90.49 Acquired absence of other specified parts of digestive tract; Z88.8 Allergy status to other drugs, medicaments and biological substances; Z91.040 Latex allergy status; Z98.42 Cataract extraction status, left eye; Z98.41 Cataract extraction status, right eye
CPT/HCPCS: 36415; 36416; 49083; 80048; 80053; 81001; 83605; 84145; 85025; 85610; 87040; 87086; J0690; J1815; J2001; J2405; J3010; P9047; S0020

== ENCOUNTER 2019-11-28 07:22 | Day surgery (SDC) | payer MEDICARE ==
[2019-11-27 08:28] VITALS: BMI 28.9
[2019-11-28] MEDS ORDERED: Lidocaine 1% PF 5 ML VIAL ONE (07:53)
[2019-11-28] MEDS ORDERED: Sodium Bicarbonate 2.5 MEQ/5 ML VIAL ONE (07:53)
[2019-11-28] MEDS ORDERED: Albumin 25% 200 ML ONE (07:53)
--- NOTE | 2019-11-28 09:22 | ULT ---
Exam: Ultrasound guided paracentesis HISTORY: Ascites COMPARISON: 11/21/2019 FINDINGS: Successful ultrasound-guided paracentesis. Total of 3550 mL of blood-tinged ascites was asp irated. TECHNIQUE: Consent obtained reformatory ultrasound-guided paracentesis. Right lower quadrant was deem ed appropriate. Skin was prepped and draped in a sterile fashion. 1% lidocaine, buffered with sodium bicarbonate was used for local anesthesia. Under ultrasound guidance, a 5 Nauruan 7 cm Yueh cat heter is advanced in the peritoneal space. A total of 3550 mL of blood-tinged ascites was aspirated. No immediate or postprocedural complications IMPRESSION: Successful ultrasound-guided paracentesis.
[2019-11-28 12:32] VITALS: BP 106/42; TEMP 98.6
== END 2019-11-28 09:20 | disposition home or self-care (01) ==
LOC: ULT 07:22
PROVIDERS: ATTEND Internal Medicine Gastroenterology
PROC: 0W9G3ZZ Drainage of Peritoneal Cavity, Percutaneous Approach (ICD-10-PCS; principal; 2019-11-28)
DX: K74.60 Unspecified cirrhosis of liver (principal); R18.8 Other ascites; K72.90 Hepatic failure, unspecified without coma; M62.84 Sarcopenia; E11.9 Type 2 diabetes mellitus without complications; I10 Essential (primary) hypertension; L40.50 Arthropathic psoriasis, unspecified; E78.00 Pure hypercholesterolemia, unspecified; Z79.84 Long term (current) use of oral hypoglycemic drugs; Z79.899 Other long term (current) drug therapy; Z88.6 Allergy status to analgesic agent; Z88.8 Allergy status to other drugs, medicaments and biological substances; Z91.048 Other nonmedicinal substance allergy status
CPT/HCPCS: 49083; P9047; J2001

== ENCOUNTER 2019-12-05 07:29 | Day surgery (SDC) | payer MEDICARE ==
[2019-12-04 08:25] VITALS: BMI 28.9
[2019-12-05] MEDS ORDERED: Albumin 25% 200 ML ONE (07:36)
[2019-12-05] MEDS ORDERED: Sodium Bicarbonate 2.5 MEQ/5 ML VIAL ONE (07:36)
[2019-12-05] MEDS ORDERED: Lidocaine 1% PF 5 ML VIAL ONE (07:37)
[2019-12-05 07:52] LABS: #Lymphocytes 0.7 thou/uL (1.20-3.40); #Monocytes 0.3 thou/uL (0.11-0.59); #Neutrophils 3.2 thou/uL (1.40-6.50); %Eosinophils 1.1 % (0.0-10.0); %Lymphocytes 15.6 % (21.0-51.0); %Monocytes 7.1 % (0.0-10.0); %Neutrophils 76.3 % (42.0-75.0); Hemoglobin 10.7 g/dL (12.0-16.0); Mean Corpuscular HGB CONC 33.3 g/dL (32.0-36.0); Mean Corpuscular Hemoglobin 30.2 pg (27.0-31.0); Mean Corpuscular Volume 90.7 fL (78.0-98.0); Platelet Count 129 thou/uL (130-400); RBC Distribution Width 12.7 % (11.5-14.5); Red Blood Cell (RBC) Count 3.56 mill/uL (4.20-5.40); White Blood Cell (WBC) Count 4.2 thou/uL (4.8-10.8)
[2019-12-05 08:04] LABS: ALT (SGPT) 18 U/L (8-55); AST (SGOT) 33 U/L (5-34); Albumin 3.7 g/dL (3.4-4.8); Alkaline Phosphatase 131 U/L (40-110); Anion Gap 14 mmol/L (10-20); BUN (Urea Nitrogen) 30 mg/dL (9.8-20.1); Bilirubin, Total 0.9 mg/dL (0.2-1.2); Calc. Creatinine Clearance 41 mL/min (70-130); Calcium 9.6 mg/dL (7.8-10.44); Carbon Dioxide 18 mmol/L (23-31); Chloride 111 mmol/L (98-107); Estimated GFR-MDRD 37; Globulin 2.6 g/dL (2.4-3.5); Glucose 170 mg/dL (83-110); Potassium 3.9 mmol/L (3.5-5.1); Protein, Total 6.3 g/dL (6.0-8.3); Sodium 139 mmol/L (136-145)
--- NOTE | 2019-12-05 09:42 | ULT ---
Ultrasound-guided paracentesis: HISTORY: Cirrhosis and recurrent ascites FINDINGS: Informed consent obtained prior to the procedure. Preprocedural imaging demonstrated intrap eritoneal free fluid. An area was marked in the right mid abdomen in the mid axillary line, and then meticulously prepped a nd draped in normal sterile fashion and anesthetized with 1% buffered lidocaine. With direct sonographic guidance, a 19-gauge needle and 5 Indian Yueh catheter were advanced into the abdomen. After the return of fluid, the catheter was advanced, and the needle was removed. Approximately 6.15 L of slightly cloudy straw-colored fluid was aspirated. The introducer sheath was removed, and hemostasis was achieved with direct pressure. A dry sterile dressing was placed. The patient tolerated the procedure well and without immediate complication. IMPRESSION: Technically successful ultrasound-guided paracentesis.
[2019-12-05 12:38] VITALS: BP 105/55; TEMP 97.8
== END 2019-12-05 09:20 | disposition home or self-care (01) ==
LOC: ULT 07:29
PROVIDERS: ATTEND Internal Medicine Gastroenterology
PROC: 0W9G3ZZ Drainage of Peritoneal Cavity, Percutaneous Approach (ICD-10-PCS; principal; 2019-12-05)
DX: K74.60 Unspecified cirrhosis of liver (principal); R18.8 Other ascites; Z79.84 Long term (current) use of oral hypoglycemic drugs; Z79.899 Other long term (current) drug therapy; Z88.6 Allergy status to analgesic agent; Z88.8 Allergy status to other drugs, medicaments and biological substances; Z91.048 Other nonmedicinal substance allergy status
CPT/HCPCS: 49083; 80053; 85025; P9047; 36415; J2001

== ENCOUNTER 2019-12-12 07:33 | Day surgery (SDC) | payer MEDICARE ==
[2019-12-12] MEDS ORDERED: Sodium Bicarbonate 2.5 MEQ/5 ML VIAL ONE (07:48)
[2019-12-12] MEDS ORDERED: Albumin 25% 200 ML ONE (07:48)
[2019-12-12 07:53] LABS: Hemoglobin 10.8 g/dL (12.0-16.0)
[2019-12-12 08:07] LABS: Anion Gap 14 mmol/L (10-20); BUN (Urea Nitrogen) 38 mg/dL (9.8-20.1); Calc. Creatinine Clearance 0 mL/min (70-130); Calcium 9.4 mg/dL (7.8-10.44); Carbon Dioxide 23 mmol/L (23-31); Chloride 107 mmol/L (98-107); Estimated GFR-MDRD 35; Glucose 151 mg/dL (83-110); Potassium 3.9 mmol/L (3.5-5.1); Sodium 140 mmol/L (136-145)
[2019-12-12] MEDS ORDERED: Lidocaine 1% PF 5 ML VIAL ONE (08:30)
[2019-12-12 09:29] VITALS: BP 102/56; TEMP 98
--- NOTE | 2019-12-12 12:06 | ULT ---
Sonographic guided paracentesis HISTORY: Recurrent ascites. FINDINGS: After explaining the procedure and answering all questions, sonographic survey showed large amount of free fluid. Sterile technique, buffered local anesthesia, sonographic guidance, and a right lateral approach were used to carefully advance a 19-gauge Yueh needle and catheter into the free fluid. Catheter was left to drain a total volume of 7.0 L clear yellow liquid. Only small amount of fluid remains. Patien t is limited to 7.0 L. Catheter was removed. Patient tolerated the procedure well and was dismissed in good condition. IMPRESSION : Technically successful sonographic guided paracentesis.
== END 2019-12-12 09:20 | disposition home or self-care (01) ==
LOC: ULT 07:33
PROVIDERS: ATTEND Internal Medicine Gastroenterology
PROC: 0W9G3ZZ Drainage of Peritoneal Cavity, Percutaneous Approach (ICD-10-PCS; principal; 2019-12-12)
DX: K74.60 Unspecified cirrhosis of liver (principal); R18.8 Other ascites; K76.0 Fatty (change of) liver, not elsewhere classified; I10 Essential (primary) hypertension; E11.9 Type 2 diabetes mellitus without complications; D64.9 Anemia, unspecified; L40.50 Arthropathic psoriasis, unspecified; Z79.84 Long term (current) use of oral hypoglycemic drugs; Z88.6 Allergy status to analgesic agent; Z88.8 Allergy status to other drugs, medicaments and biological substances; Z91.040 Latex allergy status; Z91.048 Other nonmedicinal substance allergy status
CPT/HCPCS: 49083; 80048; 85014; 85018; P9047; 36415; J2001

== ENCOUNTER 2019-12-19 07:31 | Day surgery (SDC) | payer MEDICARE ==
[2019-12-18 11:32] VITALS: BMI 25.6
[2019-12-19] MEDS ORDERED: Sodium Bicarbonate 2.5 MEQ/5 ML VIAL ONE (07:34)
[2019-12-19] MEDS ORDERED: Albumin 25% 200 ML ONE (07:34)
[2019-12-19] MEDS ORDERED: Lidocaine 1% PF 5 ML VIAL ONE (07:34)
--- NOTE | 2019-12-19 09:01 | ULT ---
Exam: Ultrasound guided paracentesis HISTORY: Ascites COMPARISON: 12/12/2019 FINDINGS: Successful ultrasound-guided paracentesis. Total of 6700 mL of yellow color ascites was asp irated. TECHNIQUE: Consent obtained reformatory ultrasound-guided paracentesis. Right lower quadrant was deem ed appropriate. Skin was prepped and draped in a sterile fashion. 1% lidocaine, buffered with sodium bicarbonate was used for local anesthesia. Under ultrasound guidance, a 5 Barbadian 7 cm Yueh cat heter is advanced in the peritoneal space. A total of 6700 mL of yellow color ascites was aspirated. No immediate or postprocedural complications IMPRESSION: Successful ultrasound-guided paracentesis.
[2019-12-19 13:56] VITALS: BP 101/47; TEMP 97.6
== END 2019-12-19 09:00 | disposition home or self-care (01) ==
LOC: ULT 07:31
PROVIDERS: ATTEND Internal Medicine Gastroenterology
PROC: 0W9G3ZX Drainage of Peritoneal Cavity, Percutaneous Approach, Diagnostic (ICD-10-PCS; principal; 2019-12-19)
DX: K74.60 Unspecified cirrhosis of liver (principal); R18.8 Other ascites; K72.90 Hepatic failure, unspecified without coma; E11.9 Type 2 diabetes mellitus without complications; I10 Essential (primary) hypertension; L40.50 Arthropathic psoriasis, unspecified; K21.9 Gastro-esophageal reflux disease without esophagitis; Z79.84 Long term (current) use of oral hypoglycemic drugs; Z79.899 Other long term (current) drug therapy; Z88.6 Allergy status to analgesic agent; Z88.8 Allergy status to other drugs, medicaments and biological substances; Z91.040 Latex allergy status; Z91.048 Other nonmedicinal substance allergy status
CPT/HCPCS: 49083; J2001; P9047

== ENCOUNTER 2019-12-26 07:33 | Day surgery (SDC) | payer MEDICARE ==
[2019-12-25 12:48] VITALS: BMI 28.9
[~2019-12-26 07:33] MED LIST changes: +Lidocaine 1% PF 5 ML VIAL ONE
[2019-12-26 07:45] LABS: #Eosinphils 0.1 thou/uL (0.0-0.7); #Lymphocytes 0.8 thou/uL (1.20-3.40); #Monocytes 0.5 thou/uL (0.11-0.59); #Neutrophils 4.2 thou/uL (1.40-6.50); %Basophils 0.6 % (0.0-1.0); %Eosinophils 1.3 % (0.0-10.0); %Lymphocytes 13.8 % (21.0-51.0); %Monocytes 8.1 % (0.0-10.0); %Neutrophils 76.2 % (42.0-75.0); Hemoglobin 11.1 g/dL (12.0-16.0); Mean Corpuscular HGB CONC 31.3 g/dL (32.0-36.0); Mean Corpuscular Hemoglobin 28.5 pg (27.0-31.0); Mean Corpuscular Volume 90.8 fL (78.0-98.0); Mean Platelet Volume 10.7 fL (7.4-10.4); Platelet Count 121 thou/uL (130-400); RBC Distribution Width 12.7 % (11.5-14.5); Red Blood Cell (RBC) Count 3.91 mill/uL (4.20-5.40); White Blood Cell (WBC) Count 5.6 thou/uL (4.8-10.8)
[2019-12-26 08:01] LABS: INR-International Normal Ratio 1.1; PTT 35.1 SEC (22.9-36.1); Prothrombin Time 13.7 SEC (12.0-14.7)
--- NOTE | 2019-12-26 08:56 | ULT ---
Exam: Ultrasound guided paracentesis HISTORY: Ascites COMPARISON: 12/19/2019 FINDINGS: Successful ultrasound-guided paracentesis. Total of 7 L of yellow color ascites was aspirat ed. TECHNIQUE: Consent obtained reformatory ultrasound-guided paracentesis. Right lower quadrant was deem ed appropriate. Skin was prepped and draped in a sterile fashion. 1% lidocaine, buffered with sodium bicarbonate was used for local anesthesia. Under ultrasound guidance, a 5 Tajik 7 cm Yueh cat heter is advanced in the peritoneal space. A total of 7 L of yellow color ascites was aspirated. No immediate or postprocedural complications IMPRESSION: Successful ultrasound-guided paracentesis.
[2019-12-26 09:09] VITALS: BP 112/60; TEMP 98
== END 2019-12-26 08:55 | disposition home or self-care (01) ==
LOC: ULT 07:33
PROVIDERS: ATTEND Internal Medicine Gastroenterology
PROC: 0W9G3ZZ Drainage of Peritoneal Cavity, Percutaneous Approach (ICD-10-PCS; principal; 2019-12-26)
DX: K74.60 Unspecified cirrhosis of liver (principal); R18.8 Other ascites; K72.90 Hepatic failure, unspecified without coma; E11.9 Type 2 diabetes mellitus without complications; I10 Essential (primary) hypertension; L40.50 Arthropathic psoriasis, unspecified; Z79.84 Long term (current) use of oral hypoglycemic drugs; Z79.899 Other long term (current) drug therapy; Z88.6 Allergy status to analgesic agent; Z88.8 Allergy status to other drugs, medicaments and biological substances; Z91.040 Latex allergy status; Z91.048 Other nonmedicinal substance allergy status
CPT/HCPCS: 49083; 85025; 85610; 85730; J2001; P9047

== ENCOUNTER 2020-01-02 07:31 | Day surgery (SDC) | payer MEDICARE ==
[2020-01-01 09:28] VITALS: BMI 28.9
[2020-01-02] MEDS ORDERED: Sodium Bicarbonate 2.5 MEQ/5 ML VIAL ONE (07:35)
[2020-01-02] MEDS ORDERED: Lidocaine 1% PF 5 ML VIAL ONE (07:35)
[2020-01-02] MEDS ORDERED: Albumin 25% 200 ML ONE (07:35)
--- NOTE | 2020-01-02 08:48 | ULT ---
Sonographic guided paracentesis HISTORY: Recurrent ascites. FINDINGS: After explaining the procedure and answering all questions, sonographic survey showed a lar ge amount of free fluid throughout the abdomen. Sterile technique, buffered local anesthesia, sonographic guidance, and a right lateral approach were used to carefully advance a 19-gauge Yueh needle and catheter into the free fluid. Catheter was left to drain a total volume of 7.0 L slightly cloudy yellow liquid. Catheter was removed with small amount of fluid remaining. Patient tolerated the procedure well and w as dismissed in good condition. IMPRESSION : Technically successful sonographic guided paracentesis.
[2020-01-02 09:09] VITALS: BP 107/54; TEMP 97.9
== END 2020-01-02 08:55 | disposition home or self-care (01) ==
LOC: ULT 07:31
PROVIDERS: ATTEND Internal Medicine Gastroenterology
PROC: 0W9G3ZZ Drainage of Peritoneal Cavity, Percutaneous Approach (ICD-10-PCS; principal; 2020-01-02)
DX: K74.60 Unspecified cirrhosis of liver (principal); R18.8 Other ascites; K72.90 Hepatic failure, unspecified without coma; L40.50 Arthropathic psoriasis, unspecified; E11.9 Type 2 diabetes mellitus without complications; Z79.84 Long term (current) use of oral hypoglycemic drugs; Z79.899 Other long term (current) drug therapy; Z88.6 Allergy status to analgesic agent; Z88.8 Allergy status to other drugs, medicaments and biological substances; Z91.040 Latex allergy status; Z91.041 Radiographic dye allergy status
CPT/HCPCS: 49083; P9047; J2001

== ENCOUNTER 2020-01-09 07:23 | Day surgery (SDC) | payer MEDICARE ==
[2020-01-09] MEDS ORDERED: Sodium Bicarbonate 2.5 MEQ/5 ML VIAL ONE (07:43)
[2020-01-09] MEDS ORDERED: Albumin 25% 200 ML ONE (07:43)
[2020-01-09] MEDS ORDERED: Lidocaine 1% PF 5 ML VIAL ONE (07:43)
[2020-01-09 07:51] LABS: #Lymphocytes 0.8 thou/uL (1.20-3.40); #Monocytes 0.5 thou/uL (0.11-0.59); #Neutrophils 4.8 thou/uL (1.40-6.50); %Basophils 0.5 % (0.0-1.0); %Eosinophils 0.8 % (0.0-10.0); %Monocytes 7.6 % (0.0-10.0); Hemoglobin 10.9 g/dL (12.0-16.0); Mean Corpuscular HGB CONC 32.6 g/dL (32.0-36.0); Mean Corpuscular Hemoglobin 28.8 pg (27.0-31.0); Mean Corpuscular Volume 88.2 fL (78.0-98.0); Mean Platelet Volume 11.1 fL (7.4-10.4); Platelet Count 127 thou/uL (130-400); RBC Distribution Width 12.6 % (11.5-14.5); Red Blood Cell (RBC) Count 3.78 mill/uL (4.20-5.40); White Blood Cell (WBC) Count 6.1 thou/uL (4.8-10.8)
[2020-01-09 07:56] LABS: INR-International Normal Ratio 1.1; Prothrombin Time 13.9 SEC (12.0-14.7)
[2020-01-09 07:57] LABS: PTT 34.8 SEC (22.9-36.1)
[2020-01-09 08:16] LABS: ALT (SGPT) 23 U/L (8-55); AST (SGOT) 33 U/L (5-34); Albumin 3.5 g/dL (3.4-4.8); Alkaline Phosphatase 137 U/L (40-110); Anion Gap 17 mmol/L (10-20); BUN (Urea Nitrogen) 40 mg/dL (9.8-20.1); Bilirubin, Total 0.6 mg/dL (0.2-1.2); Calc. Creatinine Clearance 0 mL/min (70-130); Calcium 9.1 mg/dL (7.8-10.44); Carbon Dioxide 19 mmol/L (23-31); Chloride 105 mmol/L (98-107); Estimated GFR-MDRD 35; Globulin 2.8 g/dL (2.4-3.5); Glucose 167 mg/dL (83-110); Potassium 4.1 mmol/L (3.5-5.1); Protein, Total 6.3 g/dL (6.0-8.3); Sodium 137 mmol/L (136-145)
--- NOTE | 2020-01-09 09:13 | ULT ---
Ultrasound-guided paracentesis: HISTORY: Cirrhosis and ascites FINDINGS: Informed consent obtained prior to the procedure. Preprocedural imaging demonstrated intrap eritoneal free fluid. An area was marked in the Right lower quadrant , and then meticulously prepped and draped in normal s terile fashion and anesthetized with 1% buffered lidocaine. With direct sonographic guidance, a 19-gauge needle and 5 Mauritanian Yueh catheter were advanced into the abdomen. After the return of fluid, the catheter was advanced, and the needle was removed. Approximately 7 L of slightly cloudy straw-colored fluid was aspirated. The introducer sheath was rem ramona, and hemostasis was achieved with direct pressure. A dry sterile dressing was placed. The patient tolerated the procedure well and without immediate complication. IMPRESSION: Technically successful ultrasound-guided paracentesis.
[2020-01-09 12:23] VITALS: BP 105/57; TEMP 98.1
== END 2020-01-09 09:20 | disposition home or self-care (01) ==
LOC: ULT 07:23
PROVIDERS: ATTEND Internal Medicine Gastroenterology
PROC: 0W9G3ZZ Drainage of Peritoneal Cavity, Percutaneous Approach (ICD-10-PCS; principal; 2020-01-09)
DX: K74.60 Unspecified cirrhosis of liver (principal); R18.8 Other ascites; K72.90 Hepatic failure, unspecified without coma; E11.9 Type 2 diabetes mellitus without complications; L40.50 Arthropathic psoriasis, unspecified; Z88.6 Allergy status to analgesic agent; Z88.8 Allergy status to other drugs, medicaments and biological substances; Z91.040 Latex allergy status; Z91.048 Other nonmedicinal substance allergy status
CPT/HCPCS: 49083; 80053; 85025; 85610; 85730; P9047; J2001

== ENCOUNTER 2020-01-16 07:19 | Day surgery (SDC) | payer MEDICARE ==
[2020-01-15 08:19] VITALS: BMI 28.9
[2020-01-16] MEDS ORDERED: Sodium Bicarbonate 2.5 MEQ/5 ML VIAL ONE (08:08)
[2020-01-16] MEDS ORDERED: Lidocaine 1% PF 5 ML VIAL ONE (08:08)
[2020-01-16] MEDS ORDERED: Albumin 25% 200 ML ONE (09:24)
[2020-01-16 09:35] VITALS: BP 125/54; TEMP 97.8
--- NOTE | 2020-01-16 10:46 | ULT ---
Ultrasound-guided paracentesis: HISTORY: Cirrhosis and recurrent ascites FINDINGS: Informed consent obtained prior to the procedure. Preprocedural imaging demonstrated intrap eritoneal free fluid. An area was marked in the Right lower quadrant , and then meticulously prepped and draped in normal s terile fashion and anesthetized with 1% buffered lidocaine. With direct sonographic guidance, a 19-gauge needle and 5 Greenlandic Yueh catheter were advanced into the abdomen. After the return of fluid, the catheter was advanced, and the needle was removed. Approximately 7 L of slightly cloudy yellow-colored fluid was aspirated. The introducer sheath was re moved, and hemostasis was achieved with direct pressure. A dry sterile dressing was placed. The patient tolerated the procedure well and without immediate complication. IMPRESSION: Technically successful ultrasound-guided paracentesis.
== END 2020-01-16 09:15 | disposition home or self-care (01) ==
LOC: ULT 07:19
PROVIDERS: ATTEND Internal Medicine Gastroenterology
PROC: 0W9G3ZZ Drainage of Peritoneal Cavity, Percutaneous Approach (ICD-10-PCS; principal; 2020-01-16)
DX: K74.60 Unspecified cirrhosis of liver (principal); R18.8 Other ascites; K72.90 Hepatic failure, unspecified without coma; E11.9 Type 2 diabetes mellitus without complications; I10 Essential (primary) hypertension; L40.50 Arthropathic psoriasis, unspecified; K76.7 Hepatorenal syndrome; M62.84 Sarcopenia; Z88.6 Allergy status to analgesic agent; Z88.8 Allergy status to other drugs, medicaments and biological substances; Z91.040 Latex allergy status; Z91.048 Other nonmedicinal substance allergy status
CPT/HCPCS: 49083; P9047; J2001

== ENCOUNTER 2020-01-23 07:32 | Day surgery (SDC) | payer MEDICARE ==
[2020-01-23] MEDS ORDERED: Sodium Bicarbonate 2.5 MEQ/5 ML VIAL ONE (08:38)
[2020-01-23] MEDS ORDERED: Albumin 25% 200 ML ONE (08:38)
[2020-01-23] MEDS ORDERED: Lidocaine 1% PF 5 ML VIAL ONE (08:38)
--- NOTE | 2020-01-23 09:11 | ULT ---
Sonographic guided paracentesis HISTORY: Recurrent ascites. FINDINGS: After explaining the procedure and answering all questions, sonographic survey shows a larg e amount of free fluid throughout the abdomen. Sterile technique, buffered local anesthesia, sonographic guidance, and a right lateral approach were used to carefully advance a 19-gauge Yueh needle and catheter into the free fluid. Catheter was left to drain a total volume of 7.0 L slightly cloudy yellow liquid. Patient is limited to 7 L. Catheter was removed with small amount of fluid remaining. Patient tolerated the procedure well and was dismissed in good condition. IMPRESSION : Technically successful sonographic guided paracentesis.
[2020-01-23 15:08] VITALS: BP 109/61; TEMP 98
== END 2020-01-23 09:30 | disposition home or self-care (01) ==
LOC: ULT 07:32
PROVIDERS: ATTEND Internal Medicine Gastroenterology
PROC: 0W9G3ZZ Drainage of Peritoneal Cavity, Percutaneous Approach (ICD-10-PCS; principal; 2020-01-23)
DX: K74.60 Unspecified cirrhosis of liver (principal); R18.8 Other ascites; K72.90 Hepatic failure, unspecified without coma; E11.9 Type 2 diabetes mellitus without complications; L40.50 Arthropathic psoriasis, unspecified; Z88.6 Allergy status to analgesic agent; Z88.8 Allergy status to other drugs, medicaments and biological substances; Z91.040 Latex allergy status; Z91.048 Other nonmedicinal substance allergy status
CPT/HCPCS: 49083; P9047; J2001

== ENCOUNTER 2020-01-30 07:30 | Day surgery (SDC) | payer MEDICARE ==
[2020-01-26 09:46] VITALS: BMI 28.9
[2020-01-30] MEDS ORDERED: Sodium Bicarbonate 2.5 MEQ/5 ML VIAL ONE (07:37)
[2020-01-30] MEDS ORDERED: Lidocaine 1% PF 5 ML VIAL ONE (07:37)
[2020-01-30] MEDS ORDERED: Albumin 25% 200 ML ONE (07:37)
--- NOTE | 2020-01-30 08:46 | ULT ---
Ultrasound-guided paracentesis: HISTORY: Cirrhosis and recurrent ascites. FINDINGS: Informed consent obtained prior to the procedure. Preprocedural imaging demonstrated intrap eritoneal free fluid. An area was marked in the right mid abdomen in the mid axillary line, and then meticulously prepped a nd draped in normal sterile fashion and anesthetized with 1% buffered lidocaine. With direct sonographic guidance, a 19-gauge needle and 5 [place] Yueh catheter were advanced into the abdomen. After the return of fluid, the catheter was advanced, and the needle was removed. Approximately 7 L of clear yellow fluid was aspirated. The introducer sheath was removed, and hemosta sis was achieved with direct pressure. A dry sterile dressing was placed. The patient tolerated the procedure well and without immediate complication. IMPRESSION: Technically successful ultrasound-guided paracentesis.
[2020-01-30 09:09] VITALS: BP 109/54; TEMP 98
== END 2020-01-30 08:50 | disposition home or self-care (01) ==
LOC: ULT 07:30
PROVIDERS: ATTEND Internal Medicine Gastroenterology
PROC: 0W9G3ZZ Drainage of Peritoneal Cavity, Percutaneous Approach (ICD-10-PCS; principal; 2020-01-30)
DX: K74.60 Unspecified cirrhosis of liver (principal); R18.8 Other ascites; K72.90 Hepatic failure, unspecified without coma; I10 Essential (primary) hypertension; L40.50 Arthropathic psoriasis, unspecified; E11.9 Type 2 diabetes mellitus without complications; Z79.84 Long term (current) use of oral hypoglycemic drugs; Z79.899 Other long term (current) drug therapy; Z88.8 Allergy status to other drugs, medicaments and biological substances; Z88.6 Allergy status to analgesic agent; Z91.040 Latex allergy status; Z91.048 Other nonmedicinal substance allergy status
CPT/HCPCS: 49083; P9047; J2001

== ENCOUNTER 2020-02-06 | Day surgery (SDC) | payer MEDICARE | END 2020-02-06 09:00 | disposition home or self-care (01) | PROC: 0W9G3ZZ Drainage of Peritoneal Cavity, Percutaneous Approach (ICD-10-PCS; principal; 2020-02-06) | DX: K74.60 Unspecified cirrhosis of liver (principal); R18.8 Other ascites; K72.90 Hepatic failure, unspecified without coma; L40.50 Arthropathic psoriasis, unspecified; E11.9 Type 2 diabetes mellitus without complications; I10 Essential (primary) hypertension; Z79.84 Long term (current) use of oral hypoglycemic drugs; Z79.899 Other long term (current) drug therapy; Z88.6 Allergy status to analgesic agent; Z88.8 Allergy status to other drugs, medicaments and biological substances; Z91.040 Latex allergy status; Z91.048 Other nonmedicinal substance allergy status ==

== ENCOUNTER 2020-02-13 07:32 | Day surgery (SDC) | payer MEDICARE ==
[2020-02-12 12:49] VITALS: BMI 28.9
[2020-02-13] MEDS ORDERED: Lidocaine 1% PF 5 ML VIAL ONE (07:39)
[2020-02-13] MEDS ORDERED: Sodium Bicarbonate 2.5 MEQ/5 ML VIAL ONE (07:39)
[2020-02-13] MEDS ORDERED: Albumin 25% 200 ML ONE (07:39)
--- NOTE | 2020-02-13 09:18 | ULT ---
ULTRASOUND-GUIDED PARACENTESIS THERAPEUTIC: DATE: 02/13/2020 HISTORY: 79-year-old female with symptomatic ascites: Abdominal distention. The limited placed on volume of drainage is 7 L according to ordering physician. TECHNIQUE: Signed informed consent obtained. A four-quadrant survey of abdomen performed. Site selected for puncture: right lower quadrant Overlying skin prepared and draped in usual sterile fashion. 25-gauge needle used to apply buffered lidocaine superficially and deeply. 5 Greenlandic Yueh catheter with stylette advanced into the pocket of free intraperitoneal fluid. After drainage, the Yueh catheter was removed. Patient tolerated the procedure well. No complications. FINDINGS: Volume of ascites prior to procedure:large. Volume of ascites fluid in the drainage pocket after drainage:large. Volume of ascites fluid drained:7000 mL Appearance of ascites fluid:nonhemorrhagic, straw-colored. IMPRESSION: Successful therapeutic paracentesis, with drainage of 7 L of ascites fluid.
[2020-02-13 11:06] VITALS: BP 108/50; TEMP 98
== END 2020-02-13 09:00 | disposition home or self-care (01) ==
LOC: ULT 07:32
PROVIDERS: ATTEND Internal Medicine Gastroenterology
PROC: 0W9G3ZZ Drainage of Peritoneal Cavity, Percutaneous Approach (ICD-10-PCS; principal; 2020-02-13)
DX: K74.60 Unspecified cirrhosis of liver (principal); R18.8 Other ascites; K72.90 Hepatic failure, unspecified without coma; E11.9 Type 2 diabetes mellitus without complications; L40.50 Arthropathic psoriasis, unspecified; Z79.84 Long term (current) use of oral hypoglycemic drugs; Z79.899 Other long term (current) drug therapy; Z88.6 Allergy status to analgesic agent; Z88.8 Allergy status to other drugs, medicaments and biological substances; Z91.040 Latex allergy status; Z91.048 Other nonmedicinal substance allergy status
CPT/HCPCS: 49083; P9047; J2001

== ENCOUNTER 2020-02-20 07:26 | Day surgery (SDC) | payer MEDICARE ==
[2020-02-20] MEDS ORDERED: Lidocaine 1% PF 5 ML VIAL ONE (07:44)
[2020-02-20] MEDS ORDERED: Sodium Bicarbonate 2.5 MEQ/5 ML VIAL ONE (07:44)
[2020-02-20] MEDS ORDERED: Albumin 25% 200 ML ONE (07:44)
[2020-02-20 09:36] VITALS: BP 121/60; TEMP 98.2
--- NOTE | 2020-02-20 10:07 | ULT ---
Exam: Ultrasound guided paracentesis HISTORY: Ascites COMPARISON: 02/13/2020 FINDINGS: Successful ultrasound-guided paracentesis. Total of 7 L of yellow color ascites was aspirat ed. TECHNIQUE: Consent obtained reformatory ultrasound-guided paracentesis. Right lower quadrant was deem ed appropriate. Skin was prepped and draped in a sterile fashion. 1% lidocaine, buffered with sodium bicarbonate was used for local anesthesia. Under ultrasound guidance, a 5 Liberian 7 cm Yueh cat heter is advanced in the peritoneal space. A total of 7 L of yellow color ascites was aspirated. No immediate or postprocedural complications IMPRESSION: Successful ultrasound-guided paracentesis.
== END 2020-02-20 09:30 | disposition home or self-care (01) ==
LOC: ULT 07:26
PROVIDERS: ATTEND Internal Medicine Gastroenterology
PROC: 0W9G3ZZ Drainage of Peritoneal Cavity, Percutaneous Approach (ICD-10-PCS; principal; 2020-02-20)
DX: K74.60 Unspecified cirrhosis of liver (principal); R18.8 Other ascites; K72.90 Hepatic failure, unspecified without coma; E11.9 Type 2 diabetes mellitus without complications; I10 Essential (primary) hypertension; L40.50 Arthropathic psoriasis, unspecified; Z88.6 Allergy status to analgesic agent; Z88.8 Allergy status to other drugs, medicaments and biological substances; Z91.040 Latex allergy status; Z91.048 Other nonmedicinal substance allergy status
CPT/HCPCS: 49083; P9047; J2001

== ENCOUNTER 2020-02-27 07:30 | Day surgery (SDC) | payer MEDICARE ==
[2020-02-27] MEDS ORDERED: Sodium Bicarbonate 2.5 MEQ/5 ML VIAL ONE (07:33)
[2020-02-27] MEDS ORDERED: Lidocaine 1% PF 5 ML VIAL ONE (07:33)
[2020-02-27] MEDS ORDERED: Albumin 25% 200 ML ONE (07:33)
--- NOTE | 2020-02-27 09:17 | ULT ---
Exam: Ultrasound guided paracentesis HISTORY: Ascites COMPARISON: 02/20/2020 FINDINGS: Successful ultrasound-guided paracentesis. Total of 7 L of yellow color ascites was aspirat ed. TECHNIQUE: Consent obtained reformatory ultrasound-guided paracentesis. Right lower quadrant was deem ed appropriate. Skin was prepped and draped in a sterile fashion. 1% lidocaine, buffered with sodium bicarbonate was used for local anesthesia. Under ultrasound guidance, a 5 Lao 7 cm Yueh cat heter is advanced in the peritoneal space. A total of 7 L of yellow color ascites was aspirated. No immediate or postprocedural complications IMPRESSION: Successful ultrasound-guided paracentesis.
[2020-02-27 09:35] VITALS: BP 101/53; TEMP 97.9
== END 2020-02-27 09:10 | disposition home or self-care (01) ==
LOC: ULT 07:30
PROVIDERS: ATTEND Internal Medicine Gastroenterology
PROC: 0W9G3ZZ Drainage of Peritoneal Cavity, Percutaneous Approach (ICD-10-PCS; principal; 2020-02-27)
DX: K74.60 Unspecified cirrhosis of liver (principal); R18.8 Other ascites; K72.90 Hepatic failure, unspecified without coma; E11.9 Type 2 diabetes mellitus without complications; I10 Essential (primary) hypertension; L40.50 Arthropathic psoriasis, unspecified; Z79.84 Long term (current) use of oral hypoglycemic drugs; Z79.899 Other long term (current) drug therapy; Z88.6 Allergy status to analgesic agent; Z88.8 Allergy status to other drugs, medicaments and biological substances; Z91.040 Latex allergy status; Z91.048 Other nonmedicinal substance allergy status
CPT/HCPCS: 49083; P9047; J2001

== ENCOUNTER → 2020-03-05 | Day surgery (SDC) | payer MEDICARE ==
[2020-03-05 07:58] LABS: #Eosinphils 0.1 thou/uL (0.0-0.7); #Lymphocytes 0.9 thou/uL (1.20-3.40); #Monocytes 0.5 thou/uL (0.11-0.59); #Neutrophils 4.8 thou/uL (1.40-6.50); %Basophils 0.5 % (0.0-1.0); %Lymphocytes 14.4 % (21.0-51.0); %Monocytes 8.1 % (0.0-10.0); %Neutrophils 75.9 % (42.0-75.0); Hemoglobin 11.6 g/dL (12.0-16.0); Mean Corpuscular HGB CONC 32.3 g/dL (32.0-36.0); Mean Corpuscular Hemoglobin 27.7 pg (27.0-31.0); Mean Corpuscular Volume 85.6 fL (78.0-98.0); Mean Platelet Volume 11.3 fL (7.4-10.4); Platelet Count 151 thou/uL (130-400); RBC Distribution Width 13.6 % (11.5-14.5); Red Blood Cell (RBC) Count 4.19 mill/uL (4.20-5.40); White Blood Cell (WBC) Count 6.4 thou/uL (4.8-10.8)
[2020-03-05 08:09] LABS: INR-International Normal Ratio 1.1; PTT 34.3 sec (22.9-36.1); Prothrombin Time 13.9 sec (12.0-14.7)
[2020-03-05 08:40] LABS: BUN (Urea Nitrogen) 39 mg/dL (9.8-20.1); Calc. Creatinine Clearance 0 mL/min (70-130); Carbon Dioxide 23 mmol/L (23-31); Chloride 108 mmol/L (98-107); Estimated GFR-MDRD 35; Glucose 174 mg/dL (83-110); Potassium 3.8 mmol/L (3.5-5.1); Sodium 140 mmol/L (136-145)
--- NOTE | 2020-03-05 09:30 | ULT ---
Sonographic guided paracentesis HISTORY: Recurrent ascites. FINDINGS: After explaining the procedure and answering all questions, sonographic survey showed a lar ge amount of free fluid throughout the abdomen. Sterile technique, buffered local anesthesia, sonographic guidance, and a right lateral approach were carefully advance a 19-gauge Yueh needle and catheter into the free fluid. Catheter was left to drain a total of 7.0 L dark yellow liquid. Catheter was removed with moderate am ount of fluid remaining. Patient tolerated the procedure well and was dismissed in good condition. IMPRESSION : Technically successful sonographic guided paracentesis. Moderate amount of fluid remained after drain ing 7 L.
[2020-03-05 09:38] VITALS: BP 101/45; TEMP 98.1; BMI 28.9
[2020-03-05 09:56] LABS: Anion Gap 13 mmol/L (10-20)
== END ==
LOC: ULT 07:32
PROVIDERS: ATTEND Internal Medicine Gastroenterology
PROC: 0W9G3ZZ Drainage of Peritoneal Cavity, Percutaneous Approach (ICD-10-PCS; principal; 2020-03-05)
DX: K74.60 Unspecified cirrhosis of liver (principal); R18.8 Other ascites; K72.90 Hepatic failure, unspecified without coma; E11.9 Type 2 diabetes mellitus without complications; L40.50 Arthropathic psoriasis, unspecified; Z79.84 Long term (current) use of oral hypoglycemic drugs; Z79.899 Other long term (current) drug therapy; Z88.6 Allergy status to analgesic agent; Z88.8 Allergy status to other drugs, medicaments and biological substances; Z91.040 Latex allergy status; Z91.048 Other nonmedicinal substance allergy status
CPT/HCPCS: 49083; 80048; 85025; 85610; 85730; P9047; 36415; J2001

== ENCOUNTER 2020-03-12 07:21 | Day surgery (SDC) | payer MEDICARE ==
[2020-03-11 09:04] VITALS: BMI 28.9
[2020-03-12] MEDS ORDERED: Sodium Bicarbonate 2.5 MEQ/5 ML VIAL ONE (07:30)
[2020-03-12] MEDS ORDERED: Lidocaine 1% PF 5 ML VIAL ONE (07:30)
[2020-03-12] MEDS ORDERED: Albumin 25% 200 ML ONE (07:34)
--- NOTE | 2020-03-12 09:02 | ULT ---
Exam: Ultrasound guided paracentesis HISTORY: Ascites COMPARISON: 03/05/2020 FINDINGS: Successful ultrasound-guided paracentesis. Total of 7 L of yellow color ascites was aspirat ed. TECHNIQUE: Consent obtained reformatory ultrasound-guided paracentesis. Right lower quadrant was deem ed appropriate. Skin was prepped and draped in a sterile fashion. 1% lidocaine, buffered with sodium bicarbonate was used for local anesthesia. Under ultrasound guidance, a 5 Slovenian 7 cm Yueh cat heter is advanced in the peritoneal space. A total of 7 L of yellow color ascites was aspirated. No immediate or postprocedural complications IMPRESSION: Successful ultrasound-guided paracentesis.
[2020-03-12 09:13] VITALS: BP 118/59; TEMP 98.3
== END 2020-03-12 08:50 | disposition home or self-care (01) ==
LOC: ULT 07:21
PROVIDERS: ATTEND Internal Medicine Gastroenterology
PROC: 0W9G3ZZ Drainage of Peritoneal Cavity, Percutaneous Approach (ICD-10-PCS; principal; 2020-03-12)
DX: K74.60 Unspecified cirrhosis of liver (principal); R18.8 Other ascites; K72.90 Hepatic failure, unspecified without coma; L40.50 Arthropathic psoriasis, unspecified; E11.9 Type 2 diabetes mellitus without complications; I10 Essential (primary) hypertension; Z79.84 Long term (current) use of oral hypoglycemic drugs; Z79.899 Other long term (current) drug therapy; Z88.6 Allergy status to analgesic agent; Z88.8 Allergy status to other drugs, medicaments and biological substances; Z91.040 Latex allergy status; Z91.048 Other nonmedicinal substance allergy status
CPT/HCPCS: 49083; P9047; J2001

== ENCOUNTER 2020-03-19 07:27 | Day surgery (SDC) | payer MEDICARE ==
[2020-03-19] MEDS ORDERED: Sodium Bicarbonate 2.5 MEQ/5 ML VIAL ONE (07:37)
[2020-03-19] MEDS ORDERED: Lidocaine 1% PF 5 ML VIAL ONE (07:37)
[2020-03-19] MEDS ORDERED: Albumin 25% 200 ML ONE (07:56)
[2020-03-19 08:12] LABS: #Eosinphils 0.1 thou/uL (0.0-0.7); #Lymphocytes 0.6 thou/uL (1.20-3.40); #Monocytes 0.4 thou/uL (0.11-0.59); %Basophils 0.8 % (0.0-1.0); %Eosinophils 1.1 % (0.0-10.0); %Lymphocytes 12.7 % (21.0-51.0); %Monocytes 7.2 % (0.0-10.0); %Neutrophils 78.2 % (42.0-75.0); Hemoglobin 10.8 g/dL (12.0-16.0); Mean Corpuscular HGB CONC 32.1 g/dL (32.0-36.0); Mean Corpuscular Hemoglobin 27.2 pg (27.0-31.0); Mean Corpuscular Volume 84.8 fL (78.0-98.0); Mean Platelet Volume 11.7 fL (7.4-10.4); Platelet Count 151 thou/uL (130-400); RBC Distribution Width 13.9 % (11.5-14.5); Red Blood Cell (RBC) Count 3.95 mill/uL (4.20-5.40); White Blood Cell (WBC) Count 5.1 thou/uL (4.8-10.8)
[2020-03-19 08:33] LABS: Anion Gap 12 mmol/L (10-20); BUN (Urea Nitrogen) 38 mg/dL (9.8-20.1); Calc. Creatinine Clearance 0 mL/min (70-130); Carbon Dioxide 21 mmol/L (23-31); Chloride 107 mmol/L (98-107); Estimated GFR-MDRD 36; Glucose 181 mg/dL (83-110); Sodium 136 mmol/L (136-145)
--- NOTE | 2020-03-19 09:22 | ULT ---
ULTRASOUND-GUIDED PARACENTESIS THERAPEUTIC: DATE: 03/19/2020 HISTORY: 79 year old female with symptomatic ascites: Abdominal distention. TECHNIQUE: Signed informed consent obtained. A four-quadrant survey of abdomen performed. Site selected for puncture: right lower quadrant Overlying skin prepared and draped in usual sterile fashion. 25-gauge needle used to apply buffered lidocaine superficially and deeply. 5 German Yueh catheter with stylette advanced into the pocket of free intraperitoneal fluid. After drainage, the Yueh catheter was removed. Patient tolerated the procedure well. No complications. FINDINGS: Volume of ascites prior to procedure:large. Volume of ascites fluid in the drainage pocket after drainage:Small to moderate. Volume of ascites fluid drained:6600 mL Appearance of ascites fluid:nonhemorrhagic, straw-colored. IMPRESSION: Successful therapeutic paracentesis, with drainage of 6.6 L of ascites fluid.
[2020-03-19 09:43] VITALS: BP 112/59; TEMP 98
== END 2020-03-19 08:50 | disposition home or self-care (01) ==
LOC: ULT 07:27
PROVIDERS: ATTEND Internal Medicine Gastroenterology
PROC: 0W9G3ZZ Drainage of Peritoneal Cavity, Percutaneous Approach (ICD-10-PCS; principal; 2020-03-19)
DX: K74.60 Unspecified cirrhosis of liver (principal); R18.8 Other ascites; K72.90 Hepatic failure, unspecified without coma; E11.9 Type 2 diabetes mellitus without complications; L40.50 Arthropathic psoriasis, unspecified; Z79.84 Long term (current) use of oral hypoglycemic drugs; Z79.899 Other long term (current) drug therapy; Z88.6 Allergy status to analgesic agent; Z88.8 Allergy status to other drugs, medicaments and biological substances; Z91.040 Latex allergy status; Z91.048 Other nonmedicinal substance allergy status
CPT/HCPCS: 49083; 80048; 85025; P9047

== ENCOUNTER 2020-03-26 07:27 | Day surgery (SDC) | payer MEDICARE ==
[2020-03-25 13:53] VITALS: BMI 28.9
[2020-03-26] MEDS ORDERED: Albumin 25% 200 ML ONE (07:29)
[2020-03-26] MEDS ORDERED: Lidocaine 1% PF 5 ML VIAL ONE (07:29)
[2020-03-26] MEDS ORDERED: Sodium Bicarbonate 2.5 MEQ/5 ML VIAL ONE (07:29)
--- NOTE | 2020-03-26 09:02 | ULT ---
ULTRASOUND-GUIDED PARACENTESIS THERAPEUTIC: DATE: 03/26/2020 HISTORY: 79-year-old female with symptomatic ascites: abdominal distention due to ascites due to cirrhosis TECHNIQUE: Signed informed consent obtained. A four-quadrant survey of abdomen performed. Site selected for puncture: right lower quadrant Overlying skin prepared and draped in usual sterile fashion. 25-gauge needle used to apply buffered lidocaine superficially and deeply. 5 Romanian Yueh catheter with stylette advanced into the pocket of free intraperitoneal fluid. After drainage, the Yueh catheter was removed. Patient tolerated the procedure well. No complications. FINDINGS: Volume of ascites prior to procedure:large. Volume of ascites fluid in the drainage pocket after drainage:moderate. Volume of ascites fluid drained:7900 mL Appearance of ascites fluid:nonhemorrhagic, straw-colored. IMPRESSION: Successful therapeutic paracentesis, with drainage of 7.9 L of ascites fluid.
[2020-03-26 10:02] VITALS: BP 103/61; TEMP 98
== END 2020-03-26 08:50 | disposition home or self-care (01) ==
LOC: ULT 07:27
PROVIDERS: ATTEND Internal Medicine Gastroenterology
PROC: 0W9G3ZZ Drainage of Peritoneal Cavity, Percutaneous Approach (ICD-10-PCS; principal; 2020-03-26)
DX: K74.60 Unspecified cirrhosis of liver (principal); R18.8 Other ascites; K72.90 Hepatic failure, unspecified without coma; E11.9 Type 2 diabetes mellitus without complications; L40.50 Arthropathic psoriasis, unspecified; D64.9 Anemia, unspecified; E78.00 Pure hypercholesterolemia, unspecified; I10 Essential (primary) hypertension; Z79.84 Long term (current) use of oral hypoglycemic drugs; Z79.899 Other long term (current) drug therapy; Z88.6 Allergy status to analgesic agent; Z88.8 Allergy status to other drugs, medicaments and biological substances; Z91.040 Latex allergy status; Z91.048 Other nonmedicinal substance allergy status
CPT/HCPCS: 49083; P9047

== ENCOUNTER 2020-04-02 07:36 | Day surgery (SDC) | payer MEDICARE ==
[2020-04-01 09:34] VITALS: BMI 28.9
--- NOTE | 2020-04-02 09:25 | ULT ---
Ultrasound-guided paracentesis: HISTORY: Cirrhosis and recurrent ascites. FINDINGS: Informed consent obtained prior to the procedure. Preprocedural imaging demonstrated intrap eritoneal free fluid. An area was marked in the Right lower quadrant , and then meticulously prepped and draped in normal s terile fashion and anesthetized with 1% buffered lidocaine. With direct sonographic guidance, a 19-gauge needle and 5 Swedish Yueh catheter were advanced into the abdomen. After the return of fluid, the catheter was advanced, and the needle was removed. Approximately 8 L of clear straw-colored fluid was aspirated. The introducer sheath was removed, and hemostasis was achieved with direct pressure. A dry sterile dressing was placed. The patient tolerated the procedure well and without immediate complication. The patient was administered 50 g of albumin intravenously during the exam. IMPRESSION: Technically successful ultrasound-guided paracentesis.
[2020-04-02 12:18] VITALS: BP 110/64; TEMP 97.2
== END 2020-04-02 09:00 | disposition home or self-care (01) ==
LOC: ULT 07:36
PROVIDERS: ATTEND Internal Medicine Gastroenterology
PROC: 0W9G3ZZ Drainage of Peritoneal Cavity, Percutaneous Approach (ICD-10-PCS; principal; 2020-04-02)
PROC: BW40ZZZ Ultrasonography of Abdomen (ICD-10-PCS; 2020-04-02)
DX: K74.60 Unspecified cirrhosis of liver (principal); R18.8 Other ascites; K72.90 Hepatic failure, unspecified without coma; K76.0 Fatty (change of) liver, not elsewhere classified; E11.9 Type 2 diabetes mellitus without complications; L40.50 Arthropathic psoriasis, unspecified; D64.9 Anemia, unspecified; E78.00 Pure hypercholesterolemia, unspecified; I10 Essential (primary) hypertension; Z79.84 Long term (current) use of oral hypoglycemic drugs; Z79.899 Other long term (current) drug therapy; Z88.6 Allergy status to analgesic agent; Z88.8 Allergy status to other drugs, medicaments and biological substances; Z91.040 Latex allergy status
CPT/HCPCS: 49083; P9047

== ENCOUNTER 2020-04-09 07:27 | Day surgery (SDC) | payer MEDICARE ==
[2020-04-08 09:54] VITALS: BMI 28.9
[2020-04-09 07:41] LABS: #Eosinphils 0.1 thou/uL (0.0-0.7); #Lymphocytes 0.8 thou/uL (1.20-3.40); #Monocytes 0.4 thou/uL (0.11-0.59); #Neutrophils 4.6 thou/uL (1.40-6.50); %Basophils 0.5 % (0.0-1.0); %Eosinophils 1.2 % (0.0-10.0); %Monocytes 6.7 % (0.0-10.0); %Neutrophils 77.7 % (42.0-75.0); Hemoglobin 10.9 g/dL (12.0-16.0); Mean Corpuscular HGB CONC 32.9 g/dL (32.0-36.0); Mean Corpuscular Volume 85.1 fL (78.0-98.0); Platelet Count 144 thou/uL (130-400); RBC Distribution Width 14.5 % (11.5-14.5); Red Blood Cell (RBC) Count 3.91 mill/uL (4.20-5.40)
[2020-04-09] MEDS ORDERED: Albumin 25% 200 ML ONE (07:45)
[2020-04-09] MEDS ORDERED: Lidocaine 1% PF 5 ML VIAL ONE (07:45)
[2020-04-09] MEDS ORDERED: Sodium Bicarbonate 2.5 MEQ/5 ML VIAL ONE (07:45)
[2020-04-09 07:49] LABS: INR-International Normal Ratio 1.1; Prothrombin Time 13.8 sec (12.0-14.7)
[2020-04-09 07:50] LABS: PTT 35.4 sec (22.9-36.1)
[2020-04-09 08:00] LABS: Anion Gap 10 mmol/L (10-20); BUN (Urea Nitrogen) 39 mg/dL (9.8-20.1); Calc. Creatinine Clearance 36 mL/min (70-130); Calcium 8.9 mg/dL (7.8-10.44); Carbon Dioxide 24 mmol/L (23-31); Chloride 106 mmol/L (98-107); Estimated GFR-MDRD 32; Glucose 162 mg/dL (83-110); Sodium 136 mmol/L (136-145)
--- NOTE | 2020-04-09 09:12 | ULT ---
Ultrasound-guided paracentesis: HISTORY: Cirrhosis and recurrent ascites. FINDINGS: Informed consent obtained prior to the procedure. Preprocedural imaging demonstrated intrap eritoneal free fluid. An area was marked in the Right lower quadrant , and then meticulously prepped and draped in normal s terile fashion and anesthetized with 1% buffered lidocaine. With direct sonographic guidance, a 19-gauge needle and 5 Citizen Of [place] Yueh catheter were advanced into the abdomen. After the return of fluid, the catheter was advanced, and the needle was removed. Approximately 8 L of cloudy yellow fluid was aspirated. The introducer sheath was removed, and hemost asis was achieved with direct pressure. A dry sterile dressing was placed. The patient tolerated the procedure well and without immediate complication. IMPRESSION: Technically successful ultrasound-guided paracentesis.
[2020-04-09 10:52] VITALS: BP 110/65; TEMP 98
== END 2020-04-09 09:00 | disposition home or self-care (01) ==
LOC: ULT 07:27
PROVIDERS: ATTEND Internal Medicine Gastroenterology
PROC: 0W9G3ZZ Drainage of Peritoneal Cavity, Percutaneous Approach (ICD-10-PCS; principal; 2020-04-09)
PROC: BW40ZZZ Ultrasonography of Abdomen (ICD-10-PCS; 2020-04-09)
DX: K74.60 Unspecified cirrhosis of liver (principal); R18.8 Other ascites; K72.90 Hepatic failure, unspecified without coma; E11.9 Type 2 diabetes mellitus without complications; E78.00 Pure hypercholesterolemia, unspecified; I10 Essential (primary) hypertension; L40.9 Psoriasis, unspecified; L40.50 Arthropathic psoriasis, unspecified; Z79.84 Long term (current) use of oral hypoglycemic drugs; Z79.899 Other long term (current) drug therapy; Z88.6 Allergy status to analgesic agent; Z88.8 Allergy status to other drugs, medicaments and biological substances; Z91.040 Latex allergy status; Z91.048 Other nonmedicinal substance allergy status
CPT/HCPCS: 49083; 80048; 85025; 85610; 85730; P9047; 36415

== ENCOUNTER 2020-05-14 07:23 | Day surgery (SDC) | payer MEDICARE ==
--- NOTE | 2020-05-14 08:42 | ULT ---
Sonographic guided paracentesis HISTORY: Symptomatic ascites. FINDINGS: After explaining the procedure and answering all questions, sonographic survey showed a lar ge amount of free fluid throughout the abdomen. Sterile technique, buffered local anesthesia, sonographic guidance, and a right lateral approach were used to carefully advance a 19-gauge Yueh needle and catheter into the free fluid. Catheter was left to drain a total volume of 8.0 L clear yellow liquid. Catheter was removed with min imal fluid remaining. Patient tolerated procedure well and was dismissed in good condition. IMPRESSION : Technically successful sonographic guided paracentesis 8.0 L.
[2020-05-14 09:06] VITALS: BP 101/54; TEMP 97.8
== END 2020-05-14 08:40 | disposition home or self-care (01) ==
LOC: ULT 07:23
PROVIDERS: ATTEND Internal Medicine Gastroenterology
PROC: 0W9G3ZZ Drainage of Peritoneal Cavity, Percutaneous Approach (ICD-10-PCS; principal; 2020-05-14)
DX: K74.60 Unspecified cirrhosis of liver (principal); R18.8 Other ascites; K72.90 Hepatic failure, unspecified without coma; K76.0 Fatty (change of) liver, not elsewhere classified; E11.9 Type 2 diabetes mellitus without complications; L40.50 Arthropathic psoriasis, unspecified; Z88.6 Allergy status to analgesic agent; Z88.8 Allergy status to other drugs, medicaments and biological substances; Z91.040 Latex allergy status; Z91.048 Other nonmedicinal substance allergy status
CPT/HCPCS: 49083; P9047

== ENCOUNTER 2020-05-21 07:34 | Day surgery (SDC) | payer MEDICARE ==
[2020-05-20 08:01] VITALS: BMI 28.0
[2020-05-21] MEDS ORDERED: Sodium Bicarbonate 2.5 MEQ/5 ML VIAL ONE (07:37)
[2020-05-21] MEDS ORDERED: Lidocaine 1% PF 5 ML VIAL ONE (07:37)
--- NOTE | 2020-05-21 08:34 | ULT ---
Sonographic guided paracentesis HISTORY: Symptomatic ascites. FINDINGS: After explaining the procedure and answering all questions, sonographic survey showed a lar ge amount of free fluid throughout the abdomen. Sterile technique, buffered local anesthesia, sonographic guidance, and a right lateral approach were used to carefully advance a 19-gauge Yueh needle and catheter into the free fluid. Catheter was left to drain a total volume of 7.7 L cloudy yellow liquid. Catheter was removed with sm all amount of fluid remaining. Patient tolerated the procedure well and was dismissed in good condition. IMPRESSION : Technically successful sonographic guided paracentesis.
[2020-05-21 10:57] VITALS: BP 120/58; TEMP 97.8
== END 2020-05-21 08:40 | disposition home or self-care (01) ==
LOC: ULT 07:34
PROVIDERS: ATTEND Internal Medicine Gastroenterology
PROC: 0W9G3ZZ Drainage of Peritoneal Cavity, Percutaneous Approach (ICD-10-PCS; principal; 2020-05-21)
PROC: BW40ZZZ Ultrasonography of Abdomen (ICD-10-PCS; 2020-05-21)
DX: K74.60 Unspecified cirrhosis of liver (principal); R18.8 Other ascites; K72.90 Hepatic failure, unspecified without coma; E11.9 Type 2 diabetes mellitus without complications; I10 Essential (primary) hypertension; L40.50 Arthropathic psoriasis, unspecified; Z79.84 Long term (current) use of oral hypoglycemic drugs; Z79.899 Other long term (current) drug therapy; Z88.6 Allergy status to analgesic agent; Z88.8 Allergy status to other drugs, medicaments and biological substances; Z91.040 Latex allergy status; Z91.048 Other nonmedicinal substance allergy status
CPT/HCPCS: 49083

== ENCOUNTER 2020-05-28 07:29 | Day surgery (SDC) | payer MEDICARE ==
[2020-05-28] MEDS ORDERED: Albumin 25% 200 ML ONE (07:48)
[2020-05-28] MEDS ORDERED: Lidocaine 1% PF 5 ML VIAL ONE (07:48)
[2020-05-28] MEDS ORDERED: Sodium Bicarbonate 2.5 MEQ/5 ML VIAL ONE (07:48)
[2020-05-28] MEDS ORDERED: Sodium Chloride 0.9% 10 ML ONE (08:20)
[2020-05-28 09:21] VITALS: BP 118/62; TEMP 98.1; BMI 28.9
--- NOTE | 2020-05-28 11:58 | ULT ---
Ultrasound-guided paracentesis: HISTORY: Cirrhosis and recurrent ascites FINDINGS: Informed consent obtained prior to the procedure. Preprocedural imaging demonstrated intrap eritoneal free fluid. An area was marked in the Right lower quadrant , and then meticulously prepped and draped in normal s terile fashion and anesthetized with 1% buffered lidocaine. With direct sonographic guidance, a 19-gauge needle and 5 Zambian Yueh catheter were advanced into the abdomen. After the return of fluid, the catheter was advanced, and the needle was removed. Approximately 8 L of clear straw-colored fluid was aspirated. The introducer sheath was removed, and hemostasis was achieved with direct pressure. A dry sterile dressing was placed. The patient tolerated the procedure well and without immediate complication. IMPRESSION: Technically successful ultrasound-guided paracentesis.
== END 2020-05-28 09:15 | disposition home or self-care (01) ==
LOC: ULT 07:29
PROVIDERS: ATTEND Internal Medicine Gastroenterology
PROC: 0W9G3ZZ Drainage of Peritoneal Cavity, Percutaneous Approach (ICD-10-PCS; principal; 2020-05-28)
PROC: BW40ZZZ Ultrasonography of Abdomen (ICD-10-PCS; 2020-05-28)
DX: K74.60 Unspecified cirrhosis of liver (principal); R18.8 Other ascites; K72.90 Hepatic failure, unspecified without coma; K76.7 Hepatorenal syndrome; K42.9 Umbilical hernia without obstruction or gangrene; E11.9 Type 2 diabetes mellitus without complications; L40.50 Arthropathic psoriasis, unspecified; E78.00 Pure hypercholesterolemia, unspecified; I10 Essential (primary) hypertension; Z79.84 Long term (current) use of oral hypoglycemic drugs; Z79.899 Other long term (current) drug therapy; Z88.6 Allergy status to analgesic agent; Z88.8 Allergy status to other drugs, medicaments and biological substances; Z91.040 Latex allergy status; Z91.048 Other nonmedicinal substance allergy status
CPT/HCPCS: 49083; P9047

== ENCOUNTER 2020-06-11 07:23 | Day surgery (SDC) | payer MEDICARE ==
[2020-06-10 09:21] VITALS: BMI 28.9
[~2020-06-11 07:23] MED LIST changes: -Albumin 25% 200 ML ONE; +FLU VACC QS2020-21(65YR UP)/PF 240 MCG/0.7 ML SYRINGE IM ONE; -Lidocaine 1% PF 5 ML VIAL ONE; -Sodium Bicarbonate 2.5 MEQ/5 ML VIAL ONE
[2020-06-11] MEDS ORDERED: Albumin 25% 200 ML ONE (07:25)
[2020-06-11] MEDS ORDERED: Lidocaine 1% PF 5 ML VIAL ONE (08:17)
--- NOTE | 2020-06-11 09:05 | ULT ---
Ultrasound-guided paracentesis: HISTORY: Cirrhosis and recurrent ascites FINDINGS: Informed consent obtained prior to the procedure. Preprocedural imaging demonstrated intrap eritoneal free fluid. An area was marked in the Right lower quadrant , and then meticulously prepped and draped in normal s terile fashion and anesthetized with 1% buffered lidocaine. With direct sonographic guidance, a 19-gauge needle and 5 British Yueh catheter were advanced into the abdomen. After the return of fluid, the catheter was advanced, and the needle was removed. Approximately 8 L of clear yellow fluid was aspirated. The introducer sheath was removed, and hemosta sis was achieved with direct pressure. A dry sterile dressing was placed. The patient tolerated the procedure well and without immediate complication. Patient was administered albumin intravenously dur ing the procedure as requested. IMPRESSION: Technically successful ultrasound-guided paracentesis.
[2020-06-11 09:37] VITALS: BP 112/53; TEMP 97.8
== END 2020-06-11 09:00 | disposition home or self-care (01) ==
LOC: ULT 07:23
PROVIDERS: ATTEND Internal Medicine Gastroenterology
PROC: 0W9G3ZZ Drainage of Peritoneal Cavity, Percutaneous Approach (ICD-10-PCS; principal; 2020-06-11)
PROC: BW40ZZZ Ultrasonography of Abdomen (ICD-10-PCS; 2020-06-11)
DX: K74.60 Unspecified cirrhosis of liver (principal); R18.8 Other ascites; K72.90 Hepatic failure, unspecified without coma; E11.9 Type 2 diabetes mellitus without complications; I10 Essential (primary) hypertension; L40.50 Arthropathic psoriasis, unspecified; Z79.84 Long term (current) use of oral hypoglycemic drugs; Z79.899 Other long term (current) drug therapy; Z88.6 Allergy status to analgesic agent; Z88.8 Allergy status to other drugs, medicaments and biological substances; Z91.040 Latex allergy status; Z91.048 Other nonmedicinal substance allergy status
CPT/HCPCS: 49083; P9047

== ENCOUNTER 2020-06-18 07:24 | Day surgery (SDC) | payer MEDICARE ==
[2020-06-18] MEDS ORDERED: Sodium Bicarbonate 2.5 MEQ/5 ML VIAL ONE (07:34)
[2020-06-18] MEDS ORDERED: Lidocaine 1% PF 5 ML VIAL ONE (07:34)
--- NOTE | 2020-06-18 08:42 | ULT ---
Ultrasound-guided paracentesis: HISTORY: Cirrhosis and recurrent ascites FINDINGS: Informed consent obtained prior to the procedure. Preprocedural imaging demonstrated intrap eritoneal free fluid. An area was marked in the right mid abdomen in the mid axillary line, and then meticulously prepped a nd draped in normal sterile fashion and anesthetized with 1% buffered lidocaine. With direct sonographic guidance, a 19-gauge needle and 5 Lebanese Yueh catheter were advanced into the abdomen. After the return of fluid, the catheter was advanced, and the needle was removed. Approximately 8 L of slightly cloudy yellow-colored fluid was aspirated. The introducer sheath was re moved, and hemostasis was achieved with direct pressure. A dry sterile dressing was placed. The patient tolerated the procedure well and without immediate complication. IMPRESSION: Technically successful ultrasound-guided paracentesis.
[2020-06-18 11:07] VITALS: BP 107/66; TEMP 97.5
[2020-06-18 11:09] VITALS: BMI 28.9
== END 2020-06-18 08:45 | disposition home or self-care (01) ==
LOC: ULT 07:24
PROVIDERS: ATTEND Internal Medicine Gastroenterology
PROC: 0W9G3ZZ Drainage of Peritoneal Cavity, Percutaneous Approach (ICD-10-PCS; principal; 2020-06-18)
PROC: BW40ZZZ Ultrasonography of Abdomen (ICD-10-PCS; 2020-06-18)
DX: K74.60 Unspecified cirrhosis of liver (principal); R18.8 Other ascites; K72.90 Hepatic failure, unspecified without coma; E11.9 Type 2 diabetes mellitus without complications; L40.50 Arthropathic psoriasis, unspecified; I10 Essential (primary) hypertension; Z79.84 Long term (current) use of oral hypoglycemic drugs; Z79.899 Other long term (current) drug therapy; Z88.6 Allergy status to analgesic agent; Z88.8 Allergy status to other drugs, medicaments and biological substances; Z91.040 Latex allergy status; Z91.048 Other nonmedicinal substance allergy status
CPT/HCPCS: 49083

== ENCOUNTER 2020-06-25 07:24 | Day surgery (SDC) | payer MEDICARE ==
[2020-06-24 09:51] VITALS: BMI 28.9
[2020-06-25] MEDS ORDERED: Sodium Bicarbonate 2.5 MEQ/5 ML VIAL ONE (07:29)
[2020-06-25] MEDS ORDERED: Lidocaine 1% PF 5 ML VIAL ONE (07:29)
[2020-06-25] MEDS ORDERED: Albumin 25% 200 ML ONE (07:29)
--- NOTE | 2020-06-25 08:46 | ULT ---
Ultrasound-guided paracentesis: HISTORY: Cirrhosis and recurrent ascites FINDINGS: Informed consent obtained prior to the procedure. Preprocedural imaging demonstrated intrap eritoneal free fluid. An area was marked in the right mid abdomen in the mid axillary line, and then meticulously prepped a nd draped in normal sterile fashion and anesthetized with 1% buffered lidocaine. With direct sonographic guidance, a 19-gauge needle and 5 Norwegian Yueh catheter were advanced into the abdomen. After the return of fluid, the catheter was advanced, and the needle was removed. Approximately 8 L of yellow slightly cloudy fluid was aspirated. The introducer sheath was removed, a nd hemostasis was achieved with direct pressure. A dry sterile dressing was placed. The patient tolerated the procedure well and without immediate complication. The patient was administered albumin intravenously during the procedure as requested. IMPRESSION: Technically successful ultrasound-guided paracentesis.
[2020-06-25 12:01] VITALS: BP 125/62; TEMP 98.2
== END 2020-06-25 08:45 | disposition home or self-care (01) ==
LOC: ULT 07:24
PROVIDERS: ATTEND Internal Medicine Gastroenterology
PROC: 0W9G3ZZ Drainage of Peritoneal Cavity, Percutaneous Approach (ICD-10-PCS; principal; 2020-06-25)
PROC: BW40ZZZ Ultrasonography of Abdomen (ICD-10-PCS; 2020-06-25)
DX: K74.60 Unspecified cirrhosis of liver (principal); R18.8 Other ascites; K72.90 Hepatic failure, unspecified without coma; E11.9 Type 2 diabetes mellitus without complications; L40.50 Arthropathic psoriasis, unspecified; I10 Essential (primary) hypertension; E78.00 Pure hypercholesterolemia, unspecified; Z79.84 Long term (current) use of oral hypoglycemic drugs; Z79.899 Other long term (current) drug therapy; Z88.6 Allergy status to analgesic agent; Z88.8 Allergy status to other drugs, medicaments and biological substances; Z91.040 Latex allergy status; Z91.048 Other nonmedicinal substance allergy status
CPT/HCPCS: 49083; P9047

== ENCOUNTER 2020-07-02 07:26 | Day surgery (SDC) | payer MEDICARE ==
[2020-07-02 07:47] LABS: #Eosinphils 0.1 thou/uL (0.0-0.7); #Lymphocytes 1.2 thou/uL (1.20-3.40); #Monocytes 0.4 thou/uL (0.11-0.59); #Neutrophils 3.9 thou/uL (1.40-6.50); %Basophils 0.3 % (0.0-1.0); %Eosinophils 1.1 % (0.0-10.0); %Lymphocytes 20.5 % (21.0-51.0); %Monocytes 7.5 % (0.0-10.0); %Neutrophils 70.5 % (42.0-75.0); Hemoglobin 10.8 g/dL (12.0-16.0); Mean Corpuscular HGB CONC 32.1 g/dL (32.0-36.0); Mean Corpuscular Hemoglobin 26.7 pg (27.0-31.0); Mean Corpuscular Volume 83.1 fL (78.0-98.0); Mean Platelet Volume 10.9 fL (7.4-10.4); Platelet Count 168 thou/uL (130-400); RBC Distribution Width 14.5 % (11.5-14.5); Red Blood Cell (RBC) Count 4.06 mill/uL (4.20-5.40); White Blood Cell (WBC) Count 5.6 thou/uL (4.8-10.8)
[2020-07-02] MEDS ORDERED: Lidocaine 1% PF 5 ML VIAL ONE (07:50)
[2020-07-02] MEDS ORDERED: Albumin 25% 200 ML ONE (07:50)
[2020-07-02] MEDS ORDERED: Sodium Bicarbonate 2.5 MEQ/5 ML VIAL ONE (07:50)
[2020-07-02 07:57] LABS: INR-International Normal Ratio 1.1
[2020-07-02 07:58] LABS: PTT 37.4 sec (22.9-36.1)
[2020-07-02 08:05] LABS: Anion Gap 14 mmol/L (10-20); BUN (Urea Nitrogen) 32 mg/dL (9.8-20.1); Calc. Creatinine Clearance 0 mL/min (70-130); Calcium 9.1 mg/dL (7.8-10.44); Carbon Dioxide 23 mmol/L (23-31); Chloride 106 mmol/L (98-107); Estimated GFR-MDRD 33; Glucose 151 mg/dL (83-110); Potassium 3.7 mmol/L (3.5-5.1); Sodium 139 mmol/L (136-145)
[2020-07-02 09:26] VITALS: BP 118/56; TEMP 97.9
[2020-07-02 09:27] VITALS: BMI 28.9
--- NOTE | 2020-07-02 09:58 | ULT ---
Exam: Ultrasound guided paracentesis HISTORY: Ascites COMPARISON: 06/25/2020 FINDINGS: Successful ultrasound-guided paracentesis. Total of 7.8 L of yellow color ascites was aspir ated. TECHNIQUE: Consent obtained reformatory ultrasound-guided paracentesis. Right lower quadrant was deem ed appropriate. Skin was prepped and draped in a sterile fashion. 1% lidocaine, buffered with sodium bicarbonate was used for local anesthesia. Under ultrasound guidance, a 5 Spanish 7 cm Yueh cat heter is advanced in the peritoneal space. A total of 7.8 L of yellow color ascites was aspirated. No immediate or postprocedural complications IMPRESSION: Successful ultrasound-guided paracentesis.
[2020-07-02] MEDS ORDERED: FLU VACC QS2020-21(65YR UP)/PF 240 MCG/0.7 ML SYRINGE IM ONE (10:30)
== END 2020-07-02 09:05 | disposition home or self-care (01) ==
LOC: ULT 07:26
PROVIDERS: ATTEND Internal Medicine Gastroenterology
PROC: 0W9G3ZZ Drainage of Peritoneal Cavity, Percutaneous Approach (ICD-10-PCS; principal; 2020-07-02)
DX: K74.60 Unspecified cirrhosis of liver (principal); R18.8 Other ascites; K72.90 Hepatic failure, unspecified without coma; K76.0 Fatty (change of) liver, not elsewhere classified; E11.9 Type 2 diabetes mellitus without complications; I10 Essential (primary) hypertension; D64.9 Anemia, unspecified; L40.50 Arthropathic psoriasis, unspecified; Z79.84 Long term (current) use of oral hypoglycemic drugs; Z79.899 Other long term (current) drug therapy; Z88.6 Allergy status to analgesic agent; Z88.8 Allergy status to other drugs, medicaments and biological substances; Z91.040 Latex allergy status; Z91.048 Other nonmedicinal substance allergy status
CPT/HCPCS: 49083; 80048; 85025; 85610; 85730; P9047; 36415

== ENCOUNTER 2020-07-09 07:26 | Day surgery (SDC) | payer MEDICARE ==
[~2020-07-09 07:26] MED LIST changes: +Albumin 25% 200 ML ONE; -FLU VACC QS2020-21(65YR UP)/PF 240 MCG/0.7 ML SYRINGE IM ONE; +Sodium Bicarbonate 2.5 MEQ/5 ML VIAL ONE
[2020-07-09] MEDS ORDERED: FLU VACC QS2020-21(65YR UP)/PF 240 MCG/0.7 ML SYRINGE IM ONE (09:00)
--- NOTE | 2020-07-09 11:42 | ULT ---
Exam: Ultrasound guided paracentesis HISTORY: Ascites COMPARISON: 07/02/2020 FINDINGS: Successful ultrasound-guided paracentesis. Total of 8 L of yellow color ascites was aspirat ed. TECHNIQUE: Consent obtained reformatory ultrasound-guided paracentesis. Right lower quadrant was deem ed appropriate. Skin was prepped and draped in a sterile fashion. 1% lidocaine, buffered with sodium bicarbonate was used for local anesthesia. Under ultrasound guidance, a 5 Turkmen 7 cm Yueh cat heter is advanced in the peritoneal space. A total of 8 L of yellow color ascites was aspirated. No immediate or postprocedural complications IMPRESSION: Successful ultrasound-guided paracentesis.
[2020-07-09 14:17] VITALS: BP 104/54; TEMP 97.6
== END 2020-07-09 09:15 | disposition home or self-care (01) ==
LOC: ULT 07:26
PROVIDERS: ATTEND Internal Medicine Gastroenterology
PROC: 0W9G3ZZ Drainage of Peritoneal Cavity, Percutaneous Approach (ICD-10-PCS; principal; 2020-07-09)
PROC: BW40ZZZ Ultrasonography of Abdomen (ICD-10-PCS; 2020-07-09)
DX: K74.60 Unspecified cirrhosis of liver (principal); R18.8 Other ascites; K72.90 Hepatic failure, unspecified without coma; E11.9 Type 2 diabetes mellitus without complications; I10 Essential (primary) hypertension; L40.50 Arthropathic psoriasis, unspecified; E78.00 Pure hypercholesterolemia, unspecified; Z79.84 Long term (current) use of oral hypoglycemic drugs; Z79.899 Other long term (current) drug therapy; Z88.6 Allergy status to analgesic agent; Z88.8 Allergy status to other drugs, medicaments and biological substances; Z91.040 Latex allergy status; Z91.048 Other nonmedicinal substance allergy status
CPT/HCPCS: 49083; P9047

== ENCOUNTER 2020-07-16 07:26 | Outpatient (CLI) | payer MEDICARE ==
[2020-07-15 10:47] VITALS: BMI 28.9
[2020-07-16] MEDS ORDERED: Lidocaine 1% PF 5 ML VIAL ONE (07:43)
[2020-07-16] MEDS ORDERED: Sodium Bicarbonate 2.5 MEQ/5 ML VIAL ONE (07:43)
[2020-07-16] MEDS ORDERED: Albumin 25% 200 ML ONE (07:43)
[2020-07-16] MEDS ORDERED: Sodium Chloride 0.9% 10 ML ONE (08:50)
--- NOTE | 2020-07-16 10:21 | MRI ---
MRI OF THE ABDOMEN WITH AND WITHOUT IV CONTRAST: Date: 07/16/2020 INDICATION: History of ascites and nonalcoholic cirrhosis and cholecystectomy. COMPARISON: Prior MRI of the abdomen with and without contrast dated 03/10/2019. Prior CT examination dated 10/17. TECHNIQUE: Multiplanar, multisequence MR images were obtained of the abdomen with and without contrast utilizing liver mass protocol. 10 mL of MultiHance administered for the examination. FINDINGS: Again seen is cirrhotic morphology of the liver with associated splenomegaly measuring 13.0 cm. No ov ert signal abnormality, region of restricted diffusion or region of suspicious enhancement is evident within the liver to suggest the presence of underlying hepatic malignancy. Gallbladder is surgically absent. There is a stable small cyst involving the superior pole of the left kidney measuring 8.0 mm. There i s a 1.0 cm nonobstructing calculus within the superior pole of the right kidney. Mild parasplenic varicosities involving the left abdominal wall on image 64 of series 2 persist. Mild paraesophageal varicosities persist. There is moderate to prominent amount of ascites present. No bone marrow signal abnormality is evident. There is a small left pleural effusion. IMPRESSION: 1. Findings of cirrhosis and portal hypertension. No suspicious signal abnormality or region of enha ncement to suggest the presence of hepatic malignancy. 2. Stable left renal cyst and right nephrolithiasis. 3. Stable moderate to prominent ascites. 4. Small left pleural effusion. POS: BH
[2020-07-16] MEDS ORDERED: Magnevist 469MG/ML 20 ML VIAL ONE (11:00)
[2020-07-16 14:16] VITALS: BP 124/55; TEMP 97.9
== END 2020-07-16 10:10 | disposition home or self-care (01) ==
LOC: MRI 07:26
PROVIDERS: ATTEND Internal Medicine Gastroenterology
DX: K31.819 Angiodysplasia of stomach and duodenum without bleeding (principal); K74.60 Unspecified cirrhosis of liver; R18.8 Other ascites; K72.90 Hepatic failure, unspecified without coma; L03.90 Cellulitis, unspecified; K76.6 Portal hypertension; N28.1 Cyst of kidney, acquired; N20.0 Calculus of kidney; J90 Pleural effusion, not elsewhere classified
CPT/HCPCS: 74183; 82105; 82565; P9047; A9579

== ENCOUNTER 2020-07-16 09:00 | Day surgery (SDC) | payer MEDICARE ==
[2020-07-15 08:45] VITALS: BMI 28.9
[~2020-07-16 09:00] MED LIST changes: -Albumin 25% 200 ML ONE; +FLU VACC QS2020-21(65YR UP)/PF 240 MCG/0.7 ML SYRINGE IM ONE; -Sodium Bicarbonate 2.5 MEQ/5 ML VIAL ONE
--- NOTE | 2020-07-16 12:32 | ULT ---
ULTRASOUND-GUIDED PARACENTESIS THERAPEUTIC: DATE: 07/16/2020 HISTORY: 80-year-old female with symptomatic ascites (abdominal distention) due to cirrhosis. TECHNIQUE: Signed informed consent obtained. A four-quadrant survey of abdomen performed. Site selected for puncture: right lower quadrant Overlying skin prepared and draped in usual sterile fashion. 25-gauge needle used to apply buffered lidocaine superficially and deeply. 5 English Yueh catheter with stylette advanced into the pocket of free intraperitoneal fluid. After drainage, the Yueh catheter was removed. Patient tolerated the procedure well. No complications. FINDINGS: Volume of ascites prior to procedure:Moderately large. Volume of ascites fluid in the drainage pocket after drainage:small . Volume of ascites fluid drained:7800 mL Appearance of ascites fluid:nonhemorrhagic, straw-colored. IMPRESSION: Successful therapeutic paracentesis, with drainage of 7.8 L of ascites fluid.
== END 2020-07-16 11:00 | disposition home or self-care (01) ==
LOC: ULT 09:00
PROVIDERS: ATTEND Internal Medicine Gastroenterology
PROC: 0W9G3ZZ Drainage of Peritoneal Cavity, Percutaneous Approach (ICD-10-PCS; principal; 2020-07-16)
DX: K74.60 Unspecified cirrhosis of liver (principal); R18.8 Other ascites; K72.90 Hepatic failure, unspecified without coma; E11.9 Type 2 diabetes mellitus without complications; E78.00 Pure hypercholesterolemia, unspecified; I10 Essential (primary) hypertension; L40.50 Arthropathic psoriasis, unspecified; Z79.84 Long term (current) use of oral hypoglycemic drugs; Z79.899 Other long term (current) drug therapy; Z88.6 Allergy status to analgesic agent; Z88.8 Allergy status to other drugs, medicaments and biological substances; Z91.040 Latex allergy status; Z91.048 Other nonmedicinal substance allergy status
CPT/HCPCS: 49083

== ENCOUNTER 2020-07-23 07:26 | Day surgery (SDC) | payer MEDICARE ==
[2020-07-22 10:46] VITALS: BMI 28.9
[2020-07-23] MEDS ORDERED: Sodium Bicarbonate 2.5 MEQ/5 ML VIAL ONE (07:41)
[2020-07-23] MEDS ORDERED: Albumin 25% 200 ML ONE (07:41)
[2020-07-23] MEDS ORDERED: Sodium Chloride 0.9% 10 ML ONE (07:56)
--- NOTE | 2020-07-23 08:56 | ULT ---
US Paracentesis with Imaging History: Ascites Comparison: Paracentesis July 16, 2020 Findings: Patient was brought to the ultrasound suite. All questions were answered. Informed consent obtained. Timeout performed. Patient's right lower quadrant was prepped and draped in normal sterile fashion. After adequate local anesthesia using lidocaine the. No spaces accessed with a 5 Korean catheter. 5.5 L of straw-colored fluid was removed. Patient tolerated the procedure well without complication. Impression: Technically successful ultrasound-guided paracentesis.
[2020-07-23 09:19] VITALS: BP 108/51; TEMP 97.7
== END 2020-07-23 09:15 | disposition home or self-care (01) ==
LOC: ULT 07:26
PROVIDERS: ATTEND Internal Medicine Gastroenterology
PROC: 0W9G3ZZ Drainage of Peritoneal Cavity, Percutaneous Approach (ICD-10-PCS; principal; 2020-07-23)
DX: K74.60 Unspecified cirrhosis of liver (principal); R18.8 Other ascites; K72.90 Hepatic failure, unspecified without coma; E11.9 Type 2 diabetes mellitus without complications; I10 Essential (primary) hypertension; L40.50 Arthropathic psoriasis, unspecified; E78.00 Pure hypercholesterolemia, unspecified; Z79.84 Long term (current) use of oral hypoglycemic drugs; Z79.899 Other long term (current) drug therapy; Z88.6 Allergy status to analgesic agent; Z88.8 Allergy status to other drugs, medicaments and biological substances; Z91.040 Latex allergy status; Z91.048 Other nonmedicinal substance allergy status
CPT/HCPCS: 49083; P9047

== ENCOUNTER 2020-07-30 07:30 | Day surgery (SDC) | payer MEDICARE ==
[2020-05-27 11:27] VITALS: BMI 28.9
[2020-07-30] MEDS ORDERED: Lidocaine 1% PF 5 ML VIAL ONE (07:35)
[2020-07-30] MEDS ORDERED: Sodium Bicarbonate 2.5 MEQ/5 ML VIAL ONE (07:35)
[2020-07-30] MEDS ORDERED: Albumin 25% 200 ML ONE (07:35)
[2020-07-30 07:57] LABS: #Eosinphils 0.1 thou/uL (0.0-0.7); #Lymphocytes 0.8 thou/uL (1.20-3.40); #Monocytes 0.5 thou/uL (0.11-0.59); #Neutrophils 4.9 thou/uL (1.40-6.50); %Basophils 0.7 % (0.0-1.0); %Eosinophils 0.9 % (0.0-10.0); %Lymphocytes 13.1 % (21.0-51.0); %Monocytes 7.6 % (0.0-10.0); %Neutrophils 77.8 % (42.0-75.0); Hemoglobin 10.6 g/dL (12.0-16.0); Mean Corpuscular HGB CONC 32.5 g/dL (32.0-36.0); Mean Corpuscular Hemoglobin 26.4 pg (27.0-31.0); Mean Corpuscular Volume 81.1 fL (78.0-98.0); Mean Platelet Volume 11.3 fL (7.4-10.4); Platelet Count 186 thou/uL (130-400); RBC Distribution Width 14.7 % (11.5-14.5); Red Blood Cell (RBC) Count 4.01 mill/uL (4.20-5.40); White Blood Cell (WBC) Count 6.3 thou/uL (4.8-10.8)
[2020-07-30 08:04] LABS: INR-International Normal Ratio 1.1; PTT 39.1 sec (22.9-36.1)
[2020-07-30 08:24] LABS: Anion Gap 14 mmol/L (10-20); BUN (Urea Nitrogen) 29 mg/dL (9.8-20.1); Calc. Creatinine Clearance 41 mL/min (70-130); Calcium 9.2 mg/dL (7.8-10.44); Carbon Dioxide 23 mmol/L (23-31); Chloride 105 mmol/L (98-107); Estimated GFR-MDRD 38; Glucose 178 mg/dL (83-110); Potassium 3.6 mmol/L (3.5-5.1); Sodium 138 mmol/L (136-145)
--- NOTE | 2020-07-30 09:24 | ULT ---
Sonographic guided paracentesis HISTORY: Symptomatic ascites. FINDINGS: After explaining the procedure and answering all questions, sonographic survey showed a lar ge amount of free fluid throughout the abdomen. Sterile technique, buffered local anesthesia, sonographic guidance, and a right lateral approach were used to carefully advance a 19-gauge Yueh needle and catheter into the free fluid. Catheter was left to drain a total volume of 4.85 L slightly cloudy yellow liquid. Catheter was remov ed with small amount of fluid remaining. Patient tolerated the procedure well and was dismissed in good condition. IMPRESSION : Technically successful paracentesis. 4.85 L.
[2020-07-30 10:41] VITALS: BP 131/69; TEMP 98.2
== END 2020-07-30 09:55 | disposition home or self-care (01) ==
LOC: ULT 07:30
PROVIDERS: ATTEND Internal Medicine Gastroenterology
PROC: 0W9G3ZZ Drainage of Peritoneal Cavity, Percutaneous Approach (ICD-10-PCS; principal; 2020-07-30)
DX: K74.60 Unspecified cirrhosis of liver (principal); R18.8 Other ascites; K72.90 Hepatic failure, unspecified without coma; K76.0 Fatty (change of) liver, not elsewhere classified; K31.819 Angiodysplasia of stomach and duodenum without bleeding; E11.9 Type 2 diabetes mellitus without complications; I10 Essential (primary) hypertension; E78.00 Pure hypercholesterolemia, unspecified; D64.9 Anemia, unspecified; Z79.84 Long term (current) use of oral hypoglycemic drugs; Z79.899 Other long term (current) drug therapy; Z88.6 Allergy status to analgesic agent; Z88.8 Allergy status to other drugs, medicaments and biological substances; Z91.040 Latex allergy status
CPT/HCPCS: 49083; 80048; 85025; 85610; 85730; P9047; 36415

== ENCOUNTER 2020-08-06 07:33 | Day surgery (SDC) | payer MEDICARE ==
[2020-08-05 08:45] VITALS: BMI 28.9
[2020-08-06] MEDS ORDERED: Lidocaine 1% PF 5 ML VIAL ONE (07:38)
[2020-08-06] MEDS ORDERED: Albumin 25% 200 ML ONE (07:38)
[2020-08-06] MEDS ORDERED: Sodium Bicarbonate 2.5 MEQ/5 ML VIAL ONE (07:38)
[2020-08-06] MEDS ORDERED: FLU VACC QS2020-21(65YR UP)/PF 240 MCG/0.7 ML SYRINGE IM ONE (09:00)
--- NOTE | 2020-08-06 09:50 | ULT ---
Exam: Ultrasound guided paracentesis HISTORY: Ascites COMPARISON: 07/30/2020 FINDINGS: Successful ultrasound-guided paracentesis. Total of 8 L of yellow color ascites was aspirat ed. TECHNIQUE: Consent obtained reformatory ultrasound-guided paracentesis. Right lower quadrant was deem ed appropriate. Skin was prepped and draped in a sterile fashion. 1% lidocaine, buffered with sodium bicarbonate was used for local anesthesia. Under ultrasound guidance, a 5 Persian 7 cm Yueh cat heter is advanced in the peritoneal space. A total of 8 L of yellow color ascites was aspirated. No immediate or postprocedural complications IMPRESSION: Successful ultrasound-guided paracentesis.
[2020-08-06 13:56] VITALS: BP 123/60; TEMP 97.7
== END 2020-08-06 09:20 | disposition home or self-care (01) ==
LOC: ULT 07:33
PROVIDERS: ATTEND Internal Medicine Gastroenterology
PROC: 0W9G3ZZ Drainage of Peritoneal Cavity, Percutaneous Approach (ICD-10-PCS; principal; 2020-08-06)
DX: K74.60 Unspecified cirrhosis of liver (principal); R18.8 Other ascites; K72.90 Hepatic failure, unspecified without coma; E11.9 Type 2 diabetes mellitus without complications; I10 Essential (primary) hypertension; L40.50 Arthropathic psoriasis, unspecified; E78.00 Pure hypercholesterolemia, unspecified; Z23 Encounter for immunization; Z79.84 Long term (current) use of oral hypoglycemic drugs; Z79.899 Other long term (current) drug therapy; Z88.6 Allergy status to analgesic agent; Z88.8 Allergy status to other drugs, medicaments and biological substances; Z91.040 Latex allergy status; Z91.048 Other nonmedicinal substance allergy status
CPT/HCPCS: 49083; 90662; G0008; P9047; 90471

== ENCOUNTER 2020-08-13 07:24 | Day surgery (SDC) | payer MEDICARE ==
[2020-08-12 09:15] VITALS: BMI 28.9
[2020-08-13] MEDS ORDERED: Lidocaine 1% PF 5 ML VIAL ONE (07:30)
[2020-08-13] MEDS ORDERED: Sodium Bicarbonate 2.5 MEQ/5 ML VIAL ONE (07:30)
[2020-08-13] MEDS ORDERED: Albumin 25% 200 ML ONE (07:30)
[2020-08-13 09:22] VITALS: BP 129/57; TEMP 97.8
[2020-08-13] MEDS ORDERED: FLU VACC QS2020-21(65YR UP)/PF 240 MCG/0.7 ML SYRINGE IM ONE (09:30)
--- NOTE | 2020-08-13 11:05 | ULT ---
ULTRASOUND-GUIDED PARACENTESIS THERAPEUTIC: DATE: 08/13/2020 HISTORY: 80-year-old female with cirrhosis and symptomatic ascites: Abdominal distention. TECHNIQUE: Signed informed consent obtained. A four-quadrant survey of abdomen performed. Site selected for puncture: right lower quadrant Overlying skin prepared and draped in usual sterile fashion. 25-gauge needle used to apply buffered lidocaine superficially and deeply. 5 Zambian Yueh catheter with stylette advanced into the pocket of free intraperitoneal fluid. After drainage, the Yueh catheter was removed. Patient tolerated the procedure well. No complications. FINDINGS: Volume of ascites prior to procedure:Moderate to large. Volume of ascites fluid in the drainage pocket after drainage:small. Volume of ascites fluid drained:5400 mL Appearance of ascites fluid:nonhemorrhagic, straw-colored. IMPRESSION: Successful therapeutic paracentesis, with drainage of 5.4 L of ascites fluid.
== END 2020-08-13 08:55 | disposition home or self-care (01) ==
LOC: ULT 07:24
PROVIDERS: ATTEND Internal Medicine Gastroenterology
PROC: 0W9G3ZZ Drainage of Peritoneal Cavity, Percutaneous Approach (ICD-10-PCS; principal; 2020-08-13)
DX: K74.60 Unspecified cirrhosis of liver (principal); R18.8 Other ascites; K72.90 Hepatic failure, unspecified without coma; E11.9 Type 2 diabetes mellitus without complications; I10 Essential (primary) hypertension; L40.50 Arthropathic psoriasis, unspecified; Z79.84 Long term (current) use of oral hypoglycemic drugs; Z79.899 Other long term (current) drug therapy; Z88.6 Allergy status to analgesic agent; Z88.8 Allergy status to other drugs, medicaments and biological substances; Z91.040 Latex allergy status; Z91.048 Other nonmedicinal substance allergy status
CPT/HCPCS: 49083; P9047; 90471; 90662; G0008

== ENCOUNTER 2020-08-20 07:28 | Day surgery (SDC) | payer MEDICARE ==
[2020-08-20] MEDS ORDERED: Lidocaine 1% PF 5 ML VIAL ONE (07:32)
[2020-08-20] MEDS ORDERED: Sodium Bicarbonate 2.5 MEQ/5 ML VIAL ONE (07:32)
--- NOTE | 2020-08-20 09:12 | ULT ---
Paracentesis sonographic guided HISTORY: Symptomatically ascites. FINDINGS: After explaining the procedure and answering all questions, sonographic survey showed a lar ge amount of free fluid throughout the abdomen. Sterile technique, buffered local anesthesia, sonographic guidance, and a right lateral approach were used to carefully advance a 19-gauge Yueh needle and catheter into the free fluid. Catheter was left to drain a total volume of 6.1 L cloudy yellow liquid. Catheter was removed with minimal fluid remaining. Patient tolerated the procedure well and was dismi ssed in good condition. IMPRESSION : Technically successful sonographic guided paracentesis. 6.1 L.
[2020-08-20 09:36] VITALS: BP 100/52; TEMP 97.7
== END 2020-08-20 09:10 | disposition home or self-care (01) ==
LOC: ULT 07:28
PROVIDERS: ATTEND Internal Medicine Gastroenterology
PROC: 0W9G3ZZ Drainage of Peritoneal Cavity, Percutaneous Approach (ICD-10-PCS; principal; 2020-08-20)
DX: K74.60 Unspecified cirrhosis of liver (principal); R18.8 Other ascites; K72.90 Hepatic failure, unspecified without coma; E11.9 Type 2 diabetes mellitus without complications; I10 Essential (primary) hypertension; L40.50 Arthropathic psoriasis, unspecified; Z79.84 Long term (current) use of oral hypoglycemic drugs; Z79.899 Other long term (current) drug therapy; Z88.6 Allergy status to analgesic agent; Z88.8 Allergy status to other drugs, medicaments and biological substances; Z91.040 Latex allergy status; Z91.048 Other nonmedicinal substance allergy status
CPT/HCPCS: 49083

== ENCOUNTER 2020-08-27 07:35 | Day surgery (SDC) | payer MEDICARE ==
[2020-08-27] MEDS ORDERED: Sodium Bicarbonate 2.5 MEQ/5 ML VIAL ONE (07:55)
[2020-08-27] MEDS ORDERED: Lidocaine 1% PF 5 ML VIAL ONE (07:55)
[2020-08-27] MEDS ORDERED: Albumin 25% 200 ML ONE (07:55)
[2020-08-27 08:00] LABS: #Eosinphils 0.1 thou/uL (0.0-0.7); #Lymphocytes 1.2 thou/uL (1.20-3.40); #Monocytes 0.4 thou/uL (0.11-0.59); #Neutrophils 3.3 thou/uL (1.40-6.50); %Basophils 0.4 % (0.0-1.0); %Eosinophils 1.4 % (0.0-10.0); %Lymphocytes 24.2 % (21.0-51.0); %Monocytes 7.5 % (0.0-10.0); %Neutrophils 66.6 % (42.0-75.0); Hemoglobin 10.6 g/dL (12.0-16.0); Mean Corpuscular HGB CONC 32.7 g/dL (32.0-36.0); Mean Corpuscular Hemoglobin 27.3 pg (27.0-31.0); Mean Corpuscular Volume 83.5 fL (78.0-98.0); Mean Platelet Volume 10.4 fL (7.4-10.4); Platelet Count 163 thou/uL (130-400); RBC Distribution Width 14.8 % (11.5-14.5); Red Blood Cell (RBC) Count 3.86 mill/uL (4.20-5.40); White Blood Cell (WBC) Count 4.9 thou/uL (4.8-10.8)
[2020-08-27 08:08] LABS: INR-International Normal Ratio 1.1; PTT 35.7 sec (22.9-36.1); Prothrombin Time 14.2 sec (12.0-14.7)
[2020-08-27 08:16] LABS: Anion Gap 15 mmol/L (10-20); BUN (Urea Nitrogen) 30 mg/dL (9.8-20.1); Calc. Creatinine Clearance 0 mL/min (70-130); Carbon Dioxide 22 mmol/L (23-31); Chloride 107 mmol/L (98-107); Glucose 118 mg/dL (83-110); Potassium 3.8 mmol/L (3.5-5.1); Sodium 140 mmol/L (136-145)
[2020-08-27] MEDS ORDERED: FLU VACC QS2020-21(65YR UP)/PF 240 MCG/0.7 ML SYRINGE IM ONE (09:45)
--- NOTE | 2020-08-27 10:18 | ULT ---
Paracentesis sonographic guided HISTORY: Symptomatic ascites. FINDINGS: After explaining the procedure and answering all questions, sonographic survey showed a lar ge amount of free fluid throughout the abdomen. Sterile technique, buffered local anesthesia, sonographic guidance, and a right lateral approach were used to carefully advance a 19-gauge Yueh needle and catheter into the free fluid. Catheter was left to drain a total volume of 5.6 L cloudy yellow liquid. Catheter was removed with mi nimal fluid remaining. Patient tolerated the procedure well and was dismissed in good condition. IMPRESSION : Technically successful sonographic guided paracentesis. 5.6 L.
[2020-08-27 12:15] VITALS: BP 110/62; TEMP 99.1
== END 2020-08-27 09:05 | disposition home or self-care (01) ==
LOC: ULT 07:35
PROVIDERS: ATTEND Internal Medicine Gastroenterology
PROC: 0W9G3ZZ Drainage of Peritoneal Cavity, Percutaneous Approach (ICD-10-PCS; principal; 2020-08-27)
DX: K74.60 Unspecified cirrhosis of liver (principal); R18.8 Other ascites; K72.90 Hepatic failure, unspecified without coma; E11.9 Type 2 diabetes mellitus without complications; L40.50 Arthropathic psoriasis, unspecified; E78.00 Pure hypercholesterolemia, unspecified; Z23 Encounter for immunization; Z79.84 Long term (current) use of oral hypoglycemic drugs; Z79.899 Other long term (current) drug therapy; Z88.6 Allergy status to analgesic agent; Z88.8 Allergy status to other drugs, medicaments and biological substances; Z91.040 Latex allergy status; Z91.048 Other nonmedicinal substance allergy status
CPT/HCPCS: 49083; 80048; 85025; 85610; 85730; 90662; G0008; P9047; 90471

== ENCOUNTER 2020-09-03 07:32 | Day surgery (SDC) | payer MEDICARE ==
[2020-09-02 08:37] VITALS: BMI 29.1
[2020-09-03] MEDS ORDERED: Lidocaine 1% PF 5 ML VIAL ONE (07:46)
[2020-09-03] MEDS ORDERED: Albumin 25% 200 ML ONE (07:46)
[2020-09-03] MEDS ORDERED: Sodium Bicarbonate 2.5 MEQ/5 ML VIAL ONE (07:46)
[2020-09-03 09:53] VITALS: BP 127/64; TEMP 98.3
--- NOTE | 2020-09-03 10:10 | ULT ---
ULTRASOUND-GUIDED PARACENTESIS THERAPEUTIC: DATE: 09/03/2020 HISTORY: 80-year-old female with symptomatic ascites: Abdominal distention. TECHNIQUE: Signed informed consent obtained. A four-quadrant survey of abdomen performed. Site selected for puncture: right lateral mid abdomen. Overlying skin prepared and draped in usual sterile fashion. 25-gauge needle used to apply buffered lidocaine superficially and deeply. 5 Micronesian Yueh catheter with stylette advanced into the pocket of free intraperitoneal fluid. After drainage, the Yueh catheter was removed. Patient tolerated the procedure well. No complications. FINDINGS: Volume of ascites prior to procedure:large. Volume of ascites fluid in the drainage pocket after drainage:small. Volume of ascites fluid drained:5000 mL Appearance of ascites fluid:nonhemorrhagic, straw-colored. IMPRESSION: Successful therapeutic paracentesis, with drainage of 5 L of ascites fluid.
== END 2020-09-03 09:30 | disposition home or self-care (01) ==
LOC: ULT 07:32
PROVIDERS: ATTEND Internal Medicine Gastroenterology
PROC: 0W9G3ZZ Drainage of Peritoneal Cavity, Percutaneous Approach (ICD-10-PCS; principal; 2020-09-03)
DX: K74.60 Unspecified cirrhosis of liver (principal); R18.8 Other ascites; K72.90 Hepatic failure, unspecified without coma; K31.819 Angiodysplasia of stomach and duodenum without bleeding; E11.9 Type 2 diabetes mellitus without complications; E78.00 Pure hypercholesterolemia, unspecified; D64.9 Anemia, unspecified; Z79.84 Long term (current) use of oral hypoglycemic drugs; Z79.899 Other long term (current) drug therapy; Z88.6 Allergy status to analgesic agent; Z88.8 Allergy status to other drugs, medicaments and biological substances; Z91.040 Latex allergy status; Z91.048 Other nonmedicinal substance allergy status
CPT/HCPCS: 49083; P9047

== ENCOUNTER 2020-09-10 07:35 | Day surgery (SDC) | payer MEDICARE ==
[2020-09-09 13:09] VITALS: BMI 29.9
[2020-09-10] MEDS ORDERED: Sodium Bicarbonate 2.5 MEQ/5 ML VIAL ONE (07:47)
[2020-09-10] MEDS ORDERED: Lidocaine 1% PF 5 ML VIAL ONE (07:47)
[2020-09-10] MEDS ORDERED: Albumin 25% 200 ML ONE (07:47)
--- NOTE | 2020-09-10 08:58 | ULT ---
ULTRASOUND-GUIDED PARACENTESIS THERAPEUTIC: DATE: 09/10/2020 HISTORY: 80-year-old female with symptomatic ascites: Abdominal discomfort due to abdominal distention due to ascites. TECHNIQUE: Signed informed consent obtained. A four-quadrant survey of abdomen performed. Site selected for puncture: right posterior lateral mid abdomen Overlying skin prepared and draped in usual sterile fashion. 25-gauge needle used to apply buffered lidocaine superficially and deeply. 5 Kazakh Yueh catheter with stylette advanced into the pocket of free intraperitoneal fluid. After drainage, the Yueh catheter was removed. Patient tolerated the procedure well. No complications. FINDINGS: Volume of ascites prior to procedure:large. Volume of ascites fluid in the drainage pocket after drainage:small. Volume of ascites fluid drained:8000 mL Appearance of ascites fluid:nonhemorrhagic, straw-colored. IMPRESSION: Successful therapeutic paracentesis, with drainage of 8 L of ascites fluid.
[2020-09-10 11:04] VITALS: BP 121/60; TEMP 98
[2020-09-10] MEDS ORDERED: FLU VACC QS2020-21(65YR UP)/PF 240 MCG/0.7 ML SYRINGE IM ONE (13:30)
== END 2020-09-10 09:05 | disposition home or self-care (01) ==
LOC: ULT 07:35
PROVIDERS: ATTEND Internal Medicine Gastroenterology
PROC: 0W9G3ZZ Drainage of Peritoneal Cavity, Percutaneous Approach (ICD-10-PCS; principal; 2020-09-10)
DX: R18.8 Other ascites (principal); E11.9 Type 2 diabetes mellitus without complications; I10 Essential (primary) hypertension; D64.9 Anemia, unspecified; M06.9 Rheumatoid arthritis, unspecified; K72.90 Hepatic failure, unspecified without coma; Z88.6 Allergy status to analgesic agent; Z88.8 Allergy status to other drugs, medicaments and biological substances; Z91.040 Latex allergy status; Z91.048 Other nonmedicinal substance allergy status
CPT/HCPCS: 49083; P9047; 90471; 90662; G0008

== ENCOUNTER 2020-09-17 07:22 | Day surgery (SDC) | payer MEDICARE ==
[2020-09-16 11:28] VITALS: BMI 30.7
[2020-09-17] MEDS ORDERED: Lidocaine 1% PF 5 ML VIAL ONE (07:35)
[2020-09-17] MEDS ORDERED: Sodium Bicarbonate 2.5 MEQ/5 ML VIAL ONE (07:35)
[2020-09-17] MEDS ORDERED: Albumin 25% 200 ML ONE (07:35)
[2020-09-17 09:22] VITALS: BP 110/56; TEMP 98.6
[2020-09-17] MEDS ORDERED: FLU VACC QS2020-21(65YR UP)/PF 240 MCG/0.7 ML SYRINGE IM ONE (11:30)
--- NOTE | 2020-09-17 11:39 | ULT ---
ULTRASOUND-GUIDED PARACENTESIS THERAPEUTIC: DATE: 09/17/2020 HISTORY: 80-year-old female with symptomatic ascites: Abdominal distention TECHNIQUE: Signed informed consent obtained. A four-quadrant survey of abdomen performed. Site selected for puncture: right lower quadrant Overlying skin prepared and draped in usual sterile fashion. 25-gauge needle used to apply buffered lidocaine superficially and deeply. 5 Chilean Yueh catheter with stylette advanced into the pocket of free intraperitoneal fluid. After drainage, the Yueh catheter was removed. Patient tolerated the procedure well. No complications. FINDINGS: Volume of ascites prior to procedure:large. Volume of ascites fluid in the drainage pocket after drainage:None. Volume of ascites fluid drained:7200 mL Appearance of ascites fluid:nonhemorrhagic, straw-colored. IMPRESSION: Successful therapeutic paracentesis, with drainage of 7.2 L of ascites fluid.
== END 2020-09-17 09:00 | disposition home or self-care (01) ==
LOC: ULT 07:22
PROVIDERS: ATTEND Internal Medicine Gastroenterology
PROC: 0W9G3ZZ Drainage of Peritoneal Cavity, Percutaneous Approach (ICD-10-PCS; principal; 2020-09-17)
DX: K74.60 Unspecified cirrhosis of liver (principal); R18.8 Other ascites; K72.90 Hepatic failure, unspecified without coma; E11.9 Type 2 diabetes mellitus without complications; I10 Essential (primary) hypertension; D64.9 Anemia, unspecified; L40.50 Arthropathic psoriasis, unspecified; Z79.84 Long term (current) use of oral hypoglycemic drugs; Z79.899 Other long term (current) drug therapy; Z88.6 Allergy status to analgesic agent; Z88.8 Allergy status to other drugs, medicaments and biological substances; Z91.040 Latex allergy status; Z91.048 Other nonmedicinal substance allergy status
CPT/HCPCS: 49083; P9047; 90471; 90662; G0008

== ENCOUNTER 2020-09-24 07:27 | Day surgery (SDC) | payer MEDICARE ==
[2020-09-20 10:27] VITALS: BMI 26.6
[2020-09-24] MEDS ORDERED: Sodium Bicarbonate 2.5 MEQ/5 ML VIAL ONE (07:32)
[2020-09-24] MEDS ORDERED: Lidocaine 1% PF 5 ML VIAL ONE (07:32)
[2020-09-24] MEDS ORDERED: Albumin 25% 200 ML ONE (07:32)
[2020-09-24 07:53] LABS: #Eosinphils 0.1 thou/uL (0.0-0.7); #Lymphocytes 0.7 thou/uL (1.20-3.40); #Monocytes 0.4 thou/uL (0.11-0.59); #Neutrophils 4.1 thou/uL (1.40-6.50); %Basophils 0.9 % (0.0-1.0); %Lymphocytes 13.4 % (21.0-51.0); %Monocytes 7.4 % (0.0-10.0); %Neutrophils 76.4 % (42.0-75.0); Hemoglobin 9.9 g/dL (12.0-16.0); Mean Corpuscular HGB CONC 32.6 g/dL (32.0-36.0); Mean Corpuscular Hemoglobin 26.9 pg (27.0-31.0); Mean Corpuscular Volume 82.7 fL (78.0-98.0); Platelet Count 163 thou/uL (130-400); RBC Distribution Width 14.8 % (11.5-14.5); Red Blood Cell (RBC) Count 3.67 mill/uL (4.20-5.40); White Blood Cell (WBC) Count 5.4 thou/uL (4.8-10.8)
[2020-09-24 08:02] LABS: PTT 38.3 sec (22.9-36.1)
[2020-09-24 08:03] LABS: INR-International Normal Ratio 1.1; Prothrombin Time 14.2 sec (12.0-14.7)
[2020-09-24 08:12] LABS: Anion Gap 14 mmol/L (10-20); BUN (Urea Nitrogen) 43 mg/dL (9.8-20.1); Calc. Creatinine Clearance 37 mL/min (70-130); Carbon Dioxide 23 mmol/L (23-31); Chloride 107 mmol/L (98-107); Glucose 176 mg/dL (83-110); Potassium 4.2 mmol/L (3.5-5.1); Sodium 140 mmol/L (136-145)
--- NOTE | 2020-09-24 09:25 | ULT ---
Sonographic guided paracentesis HISTORY: Symptomatic ascites. FINDINGS: After explaining the procedure and answering all questions, sonographic survey showed a lar ge amount of free fluid throughout the abdomen. Sterile technique, buffered local anesthesia, sonographic guidance, and a right lateral approach were used to carefully advance a 19-gauge Yueh needle and catheter into the free fluid. Catheter was left to drain a total volume of 6.55 L cloudy beige fluid. Catheter was removed with min imal fluid remaining. Patient tolerated the procedure well and was dismissed in good condition. IMPRESSION : Technically successful sonographic guided paracentesis 6.5 L.
[2020-09-24 10:53] VITALS: BP 114/62; TEMP 98.2
== END 2020-09-24 09:25 | disposition home or self-care (01) ==
LOC: ULT 07:27
PROVIDERS: ATTEND Internal Medicine Gastroenterology
PROC: 0W9G3ZZ Drainage of Peritoneal Cavity, Percutaneous Approach (ICD-10-PCS; principal; 2020-09-24)
DX: K74.60 Unspecified cirrhosis of liver (principal); R18.8 Other ascites; K72.90 Hepatic failure, unspecified without coma; D64.9 Anemia, unspecified; E11.9 Type 2 diabetes mellitus without complications; E78.00 Pure hypercholesterolemia, unspecified; I10 Essential (primary) hypertension; L40.50 Arthropathic psoriasis, unspecified; L03.90 Cellulitis, unspecified; Z79.84 Long term (current) use of oral hypoglycemic drugs; Z79.82 Long term (current) use of aspirin; Z79.899 Other long term (current) drug therapy; Z88.6 Allergy status to analgesic agent; Z88.8 Allergy status to other drugs, medicaments and biological substances; Z91.040 Latex allergy status; Z91.048 Other nonmedicinal substance allergy status
CPT/HCPCS: 49083; 80048; 85025; 85610; 85730; P9047; 36415

== ENCOUNTER 2020-10-01 07:28 | Day surgery (SDC) | payer MEDICARE ==
[2020-09-30 12:44] VITALS: BMI 30.7
[2020-10-01] MEDS ORDERED: Sodium Bicarbonate 2.5 MEQ/5 ML VIAL ONE (07:42)
[2020-10-01] MEDS ORDERED: Albumin 25% 200 ML ONE (07:42)
[2020-10-01] MEDS ORDERED: Lidocaine 1% PF 5 ML VIAL ONE (07:42)
[2020-10-01] MEDS ORDERED: FLU VACC QS2020-21(65YR UP)/PF 240 MCG/0.7 ML SYRINGE IM ONE (09:00)
--- NOTE | 2020-10-01 09:45 | ULT ---
Paracentesis sonographic guided HISTORY: Symptomatic ascites. FINDINGS: After explaining the procedure and answering all questions, sonographic survey showed a lar ge amount of free fluid throughout the abdomen. Sterile technique, buffered local anesthesia, sonographic guidance, and a right lateral approach were used to carefully advance a 19-gauge Yueh needle and catheter into the free fluid. Catheter was left to drain a total volume of 7.7 L cloudy yellow liquid. Catheter was removed with minimal fluid remaining. Patient tolerated the procedure well and was dismi ssed in good condition. IMPRESSION : Technically successful sonographic guided paracentesis 7.7 L.
[2020-10-01 12:00] VITALS: BP 100/55; TEMP 97.8
== END 2020-10-01 09:05 | disposition home or self-care (01) ==
LOC: ULT 07:28
PROVIDERS: ATTEND Internal Medicine Gastroenterology
PROC: 0W9G3ZZ Drainage of Peritoneal Cavity, Percutaneous Approach (ICD-10-PCS; principal; 2020-10-01)
DX: K74.60 Unspecified cirrhosis of liver (principal); R18.8 Other ascites; K72.90 Hepatic failure, unspecified without coma; E11.9 Type 2 diabetes mellitus without complications; I10 Essential (primary) hypertension; D64.9 Anemia, unspecified; L40.50 Arthropathic psoriasis, unspecified; Z79.84 Long term (current) use of oral hypoglycemic drugs; Z79.899 Other long term (current) drug therapy; Z88.6 Allergy status to analgesic agent; Z88.8 Allergy status to other drugs, medicaments and biological substances; Z91.040 Latex allergy status; Z91.048 Other nonmedicinal substance allergy status
CPT/HCPCS: 49083; P9047

== ENCOUNTER 2020-10-08 07:31 | Day surgery (SDC) | payer MEDICARE ==
[2020-10-07 13:57] VITALS: BMI 26.6
[2020-10-08] MEDS ORDERED: Sodium Bicarbonate 2.5 MEQ/5 ML VIAL ONE (07:35)
[2020-10-08] MEDS ORDERED: Albumin 25% 200 ML ONE (07:35)
[2020-10-08] MEDS ORDERED: Lidocaine 1% PF 5 ML VIAL ONE (07:35)
[2020-10-08 08:10] VITALS: BP 97/49; TEMP 98.3
== END 2020-10-08 09:05 | disposition home or self-care (01) ==
LOC: ULT 07:31
PROVIDERS: ATTEND Internal Medicine Gastroenterology
PROC: 0W9G3ZZ Drainage of Peritoneal Cavity, Percutaneous Approach (ICD-10-PCS; principal; 2020-10-08)
DX: K74.60 Unspecified cirrhosis of liver (principal); R18.8 Other ascites; E11.9 Type 2 diabetes mellitus without complications; I10 Essential (primary) hypertension; K72.90 Hepatic failure, unspecified without coma; D64.9 Anemia, unspecified; L40.50 Arthropathic psoriasis, unspecified; Z88.6 Allergy status to analgesic agent; Z88.8 Allergy status to other drugs, medicaments and biological substances; Z91.040 Latex allergy status; Z91.048 Other nonmedicinal substance allergy status
CPT/HCPCS: 49083; P9047

== ENCOUNTER 2020-10-15 07:27 | Day surgery (SDC) | payer MEDICARE ==
[2020-10-15] MEDS ORDERED: Sodium Bicarbonate 2.5 MEQ/5 ML VIAL ONE (07:42)
[2020-10-15] MEDS ORDERED: Lidocaine 1% PF 5 ML VIAL ONE (07:42)
[2020-10-15] MEDS ORDERED: Albumin 25% 200 ML ONE (07:42)
[2020-10-15 10:14] VITALS: BP 109/53; TEMP 98.1
--- NOTE | 2020-10-15 11:47 | ULT ---
Ultrasound-guided paracentesis: HISTORY: Cirrhosis and recurrent ascites FINDINGS: Informed consent obtained prior to the procedure. Preprocedural imaging demonstrated intrap eritoneal free fluid. An area was marked in the mid axillary line right lower quadrant, and then meticulously prepped and d raped in normal sterile fashion and anesthetized with 1% buffered lidocaine. With direct sonographic guidance, a 19-gauge needle and 5 Malaysian Yueh catheter were advanced into the abdomen. After the return of fluid, the catheter was advanced, and the needle was removed. Approximately 7.7 L of mildly cloudy yellow fluid was aspirated. The introducer sheath was removed, a nd hemostasis was achieved with direct pressure. A dry sterile dressing was placed. The patient tolerated the procedure well and without immediate complication. IMPRESSION: Technically successful ultrasound-guided paracentesis.
== END 2020-10-15 09:30 | disposition home or self-care (01) ==
LOC: ULT 07:27
PROVIDERS: ATTEND Internal Medicine Gastroenterology
PROC: 0W9G3ZZ Drainage of Peritoneal Cavity, Percutaneous Approach (ICD-10-PCS; principal; 2020-10-15)
DX: K74.60 Unspecified cirrhosis of liver (principal); R18.8 Other ascites; K72.90 Hepatic failure, unspecified without coma; E11.9 Type 2 diabetes mellitus without complications; I10 Essential (primary) hypertension; L40.50 Arthropathic psoriasis, unspecified; Z88.8 Allergy status to other drugs, medicaments and biological substances; Z91.040 Latex allergy status; Z91.048 Other nonmedicinal substance allergy status
CPT/HCPCS: 49083; P9047

== ENCOUNTER → 2020-10-21 | Day surgery (SDC) | payer MEDICARE ==
[~2020-10-21] MED LIST changes: +Albumin 25% 200 ML ONE; +Lidocaine 1% PF 5 ML VIAL ONE; +Sodium Bicarbonate 2.5 MEQ/5 ML VIAL ONE
== END | disposition home or self-care (01) ==
LOC: ULT 10:56
PROVIDERS: ATTEND Internal Medicine Gastroenterology
PROC: 0W9G3ZZ Drainage of Peritoneal Cavity, Percutaneous Approach (ICD-10-PCS; principal; 2020-10-21)
DX: K74.60 Unspecified cirrhosis of liver (principal); R18.8 Other ascites; K72.90 Hepatic failure, unspecified without coma; E11.9 Type 2 diabetes mellitus without complications; L40.50 Arthropathic psoriasis, unspecified; I10 Essential (primary) hypertension; Z88.6 Allergy status to analgesic agent; Z88.8 Allergy status to other drugs, medicaments and biological substances; Z91.040 Latex allergy status; Z91.048 Other nonmedicinal substance allergy status
CPT/HCPCS: 49083; P9047

== ENCOUNTER 2020-10-29 07:24 | Day surgery (SDC) | payer MEDICARE ==
[2020-10-29 07:43] LABS: #Eosinphils 0.1 thou/uL (0.0-0.7); #Lymphocytes 0.9 thou/uL (1.20-3.40); #Monocytes 0.4 thou/uL (0.11-0.59); #Neutrophils 4.2 thou/uL (1.40-6.50); %Basophils 0.7 % (0.0-1.0); %Eosinophils 1.5 % (0.0-10.0); %Lymphocytes 15.7 % (21.0-51.0); %Monocytes 7.2 % (0.0-10.0); Hemoglobin 10.3 g/dL (12.0-16.0); Mean Corpuscular Hemoglobin 26.1 pg (27.0-31.0); Mean Corpuscular Volume 81.7 fL (78.0-98.0); Mean Platelet Volume 11.4 fL (7.4-10.4); Platelet Count 166 thou/uL (130-400); RBC Distribution Width 14.9 % (11.5-14.5); Red Blood Cell (RBC) Count 3.95 mill/uL (4.20-5.40); White Blood Cell (WBC) Count 5.5 thou/uL (4.8-10.8)
[2020-10-29] MEDS ORDERED: Albumin 25% 200 ML ONE (07:46)
[2020-10-29] MEDS ORDERED: Sodium Bicarbonate 2.5 MEQ/5 ML VIAL ONE (07:46)
[2020-10-29] MEDS ORDERED: Lidocaine 1% PF 5 ML VIAL ONE (07:47)
[2020-10-29 07:48] LABS: INR-International Normal Ratio 1.1; PTT 37.9 sec (22.9-36.1); Prothrombin Time 14.3 sec (12.0-14.7)
[2020-10-29] MEDS ORDERED: FLU VACC QS2020-21(65YR UP)/PF 240 MCG/0.7 ML SYRINGE IM ONE (09:00)
--- NOTE | 2020-10-29 09:25 | ULT ---
Ultrasound-guided paracentesis: 10/29/2020 HISTORY: Symptomatic ascites FINDINGS: Informed consent obtained prior to the procedure. Preprocedural imaging demonstrated signif icant ascites throughout the abdomen and pelvis. Right lower quadrantprepped and draped in normal sterile fashion and anesthetized with 1% buffered li docaine. With direct sonographic guidance, 5 Polish Yueh catheter is advanced into the ascites and removal of the stylet yielded yellowfluid. 7.5 L were removed. The patient tolerated the procedure well. No postprocedural complications. IMPRESSION: Successful ultrasound-guided paracentesis yielding 7.5 L of yellow fluid.
[2020-10-29 09:36] VITALS: BP 130/51; TEMP 98.2
== END 2020-10-29 09:15 | disposition home or self-care (01) ==
LOC: ULT 07:24
PROVIDERS: ATTEND Internal Medicine Gastroenterology
PROC: 0W9G3ZZ Drainage of Peritoneal Cavity, Percutaneous Approach (ICD-10-PCS; principal; 2020-10-29)
DX: K74.60 Unspecified cirrhosis of liver (principal); R18.8 Other ascites; L40.50 Arthropathic psoriasis, unspecified; E11.9 Type 2 diabetes mellitus without complications; I10 Essential (primary) hypertension; Z79.84 Long term (current) use of oral hypoglycemic drugs; Z79.899 Other long term (current) drug therapy; Z88.6 Allergy status to analgesic agent; Z88.8 Allergy status to other drugs, medicaments and biological substances; Z91.040 Latex allergy status; Z91.048 Other nonmedicinal substance allergy status
CPT/HCPCS: 49083; 85025; 85610; 85730; P9047

== ENCOUNTER 2020-11-05 07:31 | Day surgery (SDC) | payer MEDICARE ==
[2020-11-04 08:30] VITALS: BMI 26.2
[~2020-11-05 07:31] MED LIST changes: -FLU VACC QS2020-21(65YR UP)/PF 240 MCG/0.7 ML SYRINGE IM ONE
[2020-11-05 08:54] LABS: ALT (SGPT) 22 U/L (8-55); AST (SGOT) 34 U/L (5-34); Albumin 3.1 g/dL (3.4-4.8); Alkaline Phosphatase 163 U/L (40-110); Anion Gap 15 mmol/L (10-20); BUN (Urea Nitrogen) 30 mg/dL (9.8-20.1); Bilirubin, Total 0.6 mg/dL (0.2-1.2); Calc. Creatinine Clearance 39 mL/min (70-130); Calcium 8.7 mg/dL (7.8-10.44); Carbon Dioxide 19 mmol/L (23-31); Chloride 108 mmol/L (98-107); Globulin 2.7 g/dL (2.4-3.5); Glucose 190 mg/dL (83-110); Potassium 4.1 mmol/L (3.5-5.1); Protein, Total 5.8 g/dL (5.8-8.1); Sodium 138 mmol/L (136-145)
--- NOTE | 2020-11-05 09:07 | ULT ---
Ultrasound-guided paracentesis: HISTORY: Cirrhosis and recurrent ascites FINDINGS: Informed consent obtained prior to the procedure. Preprocedural imaging demonstrated intrap eritoneal free fluid. An area was marked in the right mid abdomen in the mid axillary line, and then meticulously prepped a nd draped in normal sterile fashion and anesthetized with 1% buffered lidocaine. With direct sonographic guidance, a 19-gauge needle and 5 [place] Yueh catheter were advanced into the abdomen. After the return of fluid, the catheter was advanced, and the needle was removed. Approximately 5.9 L of slightly cloudy straw-colored fluid was aspirated. The introducer sheath was r emoved, and hemostasis was achieved with direct pressure. A dry sterile dressing was placed. The patient tolerated the procedure well and without immediate complication. IMPRESSION: Technically successful ultrasound-guided paracentesis.
[2020-11-05 09:24] VITALS: BP 117/59; TEMP 98.4
== END 2020-11-05 09:15 | disposition home or self-care (01) ==
LOC: ULT 07:31
PROVIDERS: ATTEND Internal Medicine Gastroenterology
PROC: 0W9G3ZZ Drainage of Peritoneal Cavity, Percutaneous Approach (ICD-10-PCS; principal; 2020-11-05)
DX: K74.60 Unspecified cirrhosis of liver (principal); R18.8 Other ascites; K72.90 Hepatic failure, unspecified without coma; E11.9 Type 2 diabetes mellitus without complications; E78.00 Pure hypercholesterolemia, unspecified; I10 Essential (primary) hypertension; L40.50 Arthropathic psoriasis, unspecified; D50.0 Iron deficiency anemia secondary to blood loss (chronic); Z91.040 Latex allergy status; Z91.048 Other nonmedicinal substance allergy status; Z88.6 Allergy status to analgesic agent; Z88.8 Allergy status to other drugs, medicaments and biological substances; Z79.84 Long term (current) use of oral hypoglycemic drugs; Z79.899 Other long term (current) drug therapy
CPT/HCPCS: 49083; 80053; P9047

== ENCOUNTER 2020-11-12 07:24 | Day surgery (SDC) | payer MEDICARE ==
[2020-11-12] MEDS ORDERED: Lidocaine 1% PF 5 ML VIAL ONE (07:36)
[2020-11-12] MEDS ORDERED: Albumin 25% 200 ML ONE (07:36)
[2020-11-12 09:18] VITALS: BP 129/55; TEMP 98.4
== END 2020-11-12 09:00 | disposition home or self-care (01) ==
LOC: ULT 07:24
PROVIDERS: ATTEND Internal Medicine Gastroenterology
PROC: 0W9G3ZZ Drainage of Peritoneal Cavity, Percutaneous Approach (ICD-10-PCS; principal; 2020-11-12)
DX: K74.60 Unspecified cirrhosis of liver (principal); R18.8 Other ascites; E11.9 Type 2 diabetes mellitus without complications; I10 Essential (primary) hypertension; L40.50 Arthropathic psoriasis, unspecified; D64.9 Anemia, unspecified; Z79.84 Long term (current) use of oral hypoglycemic drugs; Z79.899 Other long term (current) drug therapy; Z88.6 Allergy status to analgesic agent; Z88.8 Allergy status to other drugs, medicaments and biological substances; Z91.040 Latex allergy status; Z91.048 Other nonmedicinal substance allergy status
CPT/HCPCS: 49083; P9047

== ENCOUNTER 2020-11-19 07:30 | Day surgery (SDC) | payer MEDICARE ==
[2020-11-19 07:47] LABS: #Eosinphils 0.1 thou/uL (0.0-0.7); #Lymphocytes 0.9 thou/uL (1.20-3.40); #Monocytes 0.5 thou/uL (0.11-0.59); #Neutrophils 4.3 thou/uL (1.40-6.50); %Basophils 0.6 % (0.0-1.0); %Eosinophils 1.8 % (0.0-10.0); %Lymphocytes 15.8 % (21.0-51.0); %Monocytes 8.7 % (0.0-10.0); %Neutrophils 73.1 % (42.0-75.0); Mean Corpuscular HGB CONC 32.3 g/dL (32.0-36.0); Mean Corpuscular Hemoglobin 26.4 pg (27.0-31.0); Mean Corpuscular Volume 81.6 fL (78.0-98.0); Mean Platelet Volume 11.4 fL (7.4-10.4); Platelet Count 160 thou/uL (130-400); RBC Distribution Width 15.1 % (11.5-14.5); Red Blood Cell (RBC) Count 3.81 mill/uL (4.20-5.40); White Blood Cell (WBC) Count 5.9 thou/uL (4.8-10.8)
[2020-11-19 07:52] LABS: INR-International Normal Ratio 1.1; Prothrombin Time 14.3 sec (12.0-14.7)
[2020-11-19 07:53] LABS: PTT 38.3 sec (22.9-36.1)
[2020-11-19 08:04] LABS: Anion Gap 12 mmol/L (10-20); BUN (Urea Nitrogen) 32 mg/dL (9.8-20.1); Calc. Creatinine Clearance 0 mL/min (70-130); Calcium 8.8 mg/dL (7.8-10.44); Carbon Dioxide 23 mmol/L (23-31); Chloride 106 mmol/L (98-107); Glucose 197 mg/dL (83-110); Sodium 137 mmol/L (136-145)
[2020-11-19] MEDS ORDERED: Lidocaine 1% PF 5 ML VIAL ONE (08:59)
[2020-11-19] MEDS ORDERED: Albumin 25% 200 ML ONE (09:47)
[2020-11-19 09:59] VITALS: BP 106/56; TEMP 98.1
== END 2020-11-19 10:00 | disposition home or self-care (01) ==
LOC: ULT 07:30
PROVIDERS: ATTEND Internal Medicine Gastroenterology
PROC: 0W9G3ZZ Drainage of Peritoneal Cavity, Percutaneous Approach (ICD-10-PCS; principal; 2020-11-19)
DX: K74.60 Unspecified cirrhosis of liver (principal); R18.8 Other ascites; K43.9 Ventral hernia without obstruction or gangrene; K72.90 Hepatic failure, unspecified without coma; K76.7 Hepatorenal syndrome; D50.0 Iron deficiency anemia secondary to blood loss (chronic); K31.819 Angiodysplasia of stomach and duodenum without bleeding; E11.9 Type 2 diabetes mellitus without complications; E78.00 Pure hypercholesterolemia, unspecified; I10 Essential (primary) hypertension; L40.50 Arthropathic psoriasis, unspecified; Z79.84 Long term (current) use of oral hypoglycemic drugs; Z79.899 Other long term (current) drug therapy; Z88.6 Allergy status to analgesic agent; Z88.8 Allergy status to other drugs, medicaments and biological substances; Z91.040 Latex allergy status
CPT/HCPCS: 49083; 80048; 85025; 85610; 85730; P9047; 36415

== ENCOUNTER 2020-11-26 07:35 | Day surgery (SDC) | payer MEDICARE ==
[2020-11-26 09:20] VITALS: BP 122/63; TEMP 97.7
== END 2020-11-26 09:00 | disposition home or self-care (01) ==
LOC: ULT 07:35
PROVIDERS: ATTEND Internal Medicine Gastroenterology
PROC: 0W9G3ZZ Drainage of Peritoneal Cavity, Percutaneous Approach (ICD-10-PCS; principal; 2020-11-26)
DX: K74.60 Unspecified cirrhosis of liver (principal); R18.8 Other ascites; K72.90 Hepatic failure, unspecified without coma; E78.00 Pure hypercholesterolemia, unspecified; E11.9 Type 2 diabetes mellitus without complications; I10 Essential (primary) hypertension; L40.50 Arthropathic psoriasis, unspecified; Z79.84 Long term (current) use of oral hypoglycemic drugs; Z79.899 Other long term (current) drug therapy; Z88.6 Allergy status to analgesic agent; Z88.8 Allergy status to other drugs, medicaments and biological substances; Z91.040 Latex allergy status; Z91.048 Other nonmedicinal substance allergy status
CPT/HCPCS: 49083

== ENCOUNTER 2020-12-03 07:27 | Day surgery (SDC) | payer MEDICARE ==
[2020-11-28 12:22] VITALS: BMI 26.1
[2020-12-03] MEDS ORDERED: Lidocaine 1% PF 5 ML VIAL ONE (07:32)
[2020-12-03] MEDS ORDERED: Albumin 25% 200 ML ONE (07:32)
[2020-12-03] MEDS ORDERED: Sodium Bicarbonate 2.5 MEQ/5 ML VIAL ONE (07:32)
[2020-12-03 09:20] VITALS: BP 120/68; TEMP 96.8
== END 2020-12-03 09:15 | disposition home or self-care (01) ==
LOC: ULT 07:27
PROVIDERS: ATTEND Internal Medicine Gastroenterology
PROC: 0W9G3ZZ Drainage of Peritoneal Cavity, Percutaneous Approach (ICD-10-PCS; principal; 2020-12-03)
DX: K74.60 Unspecified cirrhosis of liver (principal); R18.8 Other ascites; L40.50 Arthropathic psoriasis, unspecified; E11.9 Type 2 diabetes mellitus without complications; I10 Essential (primary) hypertension; K21.9 Gastro-esophageal reflux disease without esophagitis; E78.5 Hyperlipidemia, unspecified; Z79.84 Long term (current) use of oral hypoglycemic drugs; Z79.899 Other long term (current) drug therapy; Z88.6 Allergy status to analgesic agent; Z88.8 Allergy status to other drugs, medicaments and biological substances; Z91.040 Latex allergy status; Z91.048 Other nonmedicinal substance allergy status
CPT/HCPCS: 49083; P9047

== ENCOUNTER 2020-12-10 07:29 | Day surgery (SDC) | payer MEDICARE ==
[2020-12-05 08:10] VITALS: BMI 26.6
[2020-12-10] MEDS ORDERED: Lidocaine 1% PF 5 ML VIAL ONE (07:37)
[2020-12-10] MEDS ORDERED: Sodium Bicarbonate 2.5 MEQ/5 ML VIAL ONE (07:37)
[2020-12-10] MEDS ORDERED: Albumin 25% 200 ML ONE (07:37)
[2020-12-10 11:31] VITALS: BP 127/68; TEMP 98.2
== END 2020-12-10 08:55 | disposition home or self-care (01) ==
LOC: ULT 07:29
PROVIDERS: ATTEND Internal Medicine Gastroenterology
PROC: 0W9G3ZZ Drainage of Peritoneal Cavity, Percutaneous Approach (ICD-10-PCS; principal; 2020-12-10)
DX: K74.60 Unspecified cirrhosis of liver (principal); R18.8 Other ascites; K72.90 Hepatic failure, unspecified without coma; E11.9 Type 2 diabetes mellitus without complications; I10 Essential (primary) hypertension; E78.5 Hyperlipidemia, unspecified; L40.50 Arthropathic psoriasis, unspecified; D64.9 Anemia, unspecified; Z79.84 Long term (current) use of oral hypoglycemic drugs; Z79.899 Other long term (current) drug therapy; Z88.6 Allergy status to analgesic agent; Z88.8 Allergy status to other drugs, medicaments and biological substances; Z91.040 Latex allergy status; Z91.048 Other nonmedicinal substance allergy status
CPT/HCPCS: 49083; P9047

== ENCOUNTER 2020-12-17 07:20 | Day surgery (SDC) | payer MEDICARE ==
[2020-12-16 10:30] VITALS: BMI 26.1
[2020-12-17] MEDS ORDERED: Albumin 25% 200 ML ONE (07:31)
[2020-12-17] MEDS ORDERED: Lidocaine 1% PF 5 ML VIAL ONE (07:31)
[2020-12-17] MEDS ORDERED: Sodium Bicarbonate 2.5 MEQ/5 ML VIAL ONE (07:31)
[2020-12-17 13:03] VITALS: BP 119/73; TEMP 98.4
== END 2020-12-17 08:50 | disposition home or self-care (01) ==
LOC: ULT 07:20
PROVIDERS: ATTEND Internal Medicine Gastroenterology
PROC: 0W9G3ZZ Drainage of Peritoneal Cavity, Percutaneous Approach (ICD-10-PCS; principal; 2020-12-17)
DX: K74.60 Unspecified cirrhosis of liver (principal); R18.8 Other ascites; K72.90 Hepatic failure, unspecified without coma; E11.9 Type 2 diabetes mellitus without complications; I10 Essential (primary) hypertension; E78.5 Hyperlipidemia, unspecified; L40.50 Arthropathic psoriasis, unspecified; K21.9 Gastro-esophageal reflux disease without esophagitis; Z79.84 Long term (current) use of oral hypoglycemic drugs; Z79.899 Other long term (current) drug therapy; Z88.8 Allergy status to other drugs, medicaments and biological substances; Z91.040 Latex allergy status; Z91.048 Other nonmedicinal substance allergy status
CPT/HCPCS: 49083; P9047

== ENCOUNTER 2020-12-24 07:23 | Day surgery (SDC) | payer MEDICARE ==
[2020-12-23 13:01] VITALS: BMI 26.1
[2020-12-24] MEDS ORDERED: Lidocaine 1% PF 5 ML VIAL ONE (07:51)
[2020-12-24] MEDS ORDERED: Albumin 25% 200 ML ONE (07:51)
[2020-12-24] MEDS ORDERED: Sodium Bicarbonate 2.5 MEQ/5 ML VIAL ONE (07:51)
[2020-12-24 08:04] LABS: #Basophils 0.1 thou/uL (0.0-0.2); #Eosinphils 0.1 thou/uL (0.0-0.7); #Lymphocytes 0.8 thou/uL (1.20-3.40); #Monocytes 0.4 thou/uL (0.11-0.59); %Eosinophils 1.4 % (0.0-10.0); %Lymphocytes 14.4 % (21.0-51.0); %Monocytes 7.3 % (0.0-10.0); %Neutrophils 75.9 % (42.0-75.0); Mean Corpuscular HGB CONC 31.9 g/dL (32.0-36.0); Mean Corpuscular Hemoglobin 26.3 pg (27.0-31.0); Mean Corpuscular Volume 82.5 fL (78.0-98.0); Mean Platelet Volume 11.9 fL (7.4-10.4); Platelet Count 145 thou/uL (130-400); RBC Distribution Width 15.6 % (11.5-14.5); Red Blood Cell (RBC) Count 3.78 mill/uL (4.20-5.40); White Blood Cell (WBC) Count 5.2 thou/uL (4.8-10.8)
[2020-12-24 08:10] LABS: INR-International Normal Ratio 1.1
[2020-12-24 08:20] LABS: Anion Gap 15 mmol/L (10-20); BUN (Urea Nitrogen) 35 mg/dL (9.8-20.1); Calc. Creatinine Clearance 31 mL/min (70-130); Calcium 8.7 mg/dL (7.8-10.44); Carbon Dioxide 19 mmol/L (23-31); Chloride 108 mmol/L (98-107); Glucose 212 mg/dL (83-110); Potassium 4.3 mmol/L (3.5-5.1); Sodium 138 mmol/L (136-145)
[2020-12-24 09:42] VITALS: BP 111/53; TEMP 98.2
== END 2020-12-24 09:15 | disposition home or self-care (01) ==
LOC: ULT 07:23
PROVIDERS: ATTEND Internal Medicine Gastroenterology
PROC: 0W9G3ZZ Drainage of Peritoneal Cavity, Percutaneous Approach (ICD-10-PCS; principal; 2020-12-24)
DX: K74.60 Unspecified cirrhosis of liver (principal); R18.8 Other ascites; K72.90 Hepatic failure, unspecified without coma; E11.9 Type 2 diabetes mellitus without complications; I10 Essential (primary) hypertension; E78.5 Hyperlipidemia, unspecified; D64.9 Anemia, unspecified; L40.50 Arthropathic psoriasis, unspecified; E78.00 Pure hypercholesterolemia, unspecified; Z79.84 Long term (current) use of oral hypoglycemic drugs; Z79.899 Other long term (current) drug therapy; Z88.6 Allergy status to analgesic agent; Z88.8 Allergy status to other drugs, medicaments and biological substances; Z91.040 Latex allergy status; Z91.048 Other nonmedicinal substance allergy status
CPT/HCPCS: 49083; 80048; 85025; 85610; 85730; P9047

== ENCOUNTER 2020-12-31 07:21 | Day surgery (SDC) | payer MEDICARE ==
[2020-12-31] MEDS ORDERED: Sodium Bicarbonate 2.5 MEQ/5 ML VIAL ONE (08:14)
[2020-12-31] MEDS ORDERED: Lidocaine 1% PF 5 ML VIAL ONE (08:14)
[2020-12-31] MEDS ORDERED: Albumin 25% 200 ML ONE (08:14)
[2020-12-31 10:16] VITALS: BP 105/43; TEMP 98.3
== END 2020-12-31 09:15 | disposition home or self-care (01) ==
LOC: ULT 07:21
PROVIDERS: ATTEND Internal Medicine Gastroenterology
PROC: 0W9G3ZZ Drainage of Peritoneal Cavity, Percutaneous Approach (ICD-10-PCS; principal; 2020-12-31)
DX: K74.60 Unspecified cirrhosis of liver (principal); R18.8 Other ascites; K72.90 Hepatic failure, unspecified without coma; E11.9 Type 2 diabetes mellitus without complications; E78.5 Hyperlipidemia, unspecified; L40.50 Arthropathic psoriasis, unspecified; K21.9 Gastro-esophageal reflux disease without esophagitis; Z79.84 Long term (current) use of oral hypoglycemic drugs; Z79.899 Other long term (current) drug therapy; Z88.8 Allergy status to other drugs, medicaments and biological substances; Z91.040 Latex allergy status; Z91.048 Other nonmedicinal substance allergy status
CPT/HCPCS: 49083; P9047

== ENCOUNTER 2021-01-07 07:25 | Day surgery (SDC) | payer MEDICARE ==
[2021-01-03 11:21] VITALS: BMI 26.1
[2021-01-07] MEDS ORDERED: Sodium Bicarbonate 2.5 MEQ/5 ML VIAL ONE (07:47)
[2021-01-07] MEDS ORDERED: Lidocaine 1% PF 5 ML VIAL ONE (07:47)
[2021-01-07] MEDS ORDERED: Albumin 25% 200 ML ONE (07:47)
[2021-01-07 09:24] VITALS: BP 117/59; TEMP 96.7
== END 2021-01-07 09:10 | disposition home or self-care (01) ==
LOC: ULT 07:25
PROVIDERS: ATTEND Internal Medicine Gastroenterology
PROC: 0W9G3ZZ Drainage of Peritoneal Cavity, Percutaneous Approach (ICD-10-PCS; principal; 2021-01-07)
DX: K74.60 Unspecified cirrhosis of liver (principal); R18.8 Other ascites; K72.90 Hepatic failure, unspecified without coma; E11.9 Type 2 diabetes mellitus without complications; I10 Essential (primary) hypertension; E78.5 Hyperlipidemia, unspecified; L40.50 Arthropathic psoriasis, unspecified; Z79.84 Long term (current) use of oral hypoglycemic drugs; Z79.899 Other long term (current) drug therapy; Z88.6 Allergy status to analgesic agent; Z88.8 Allergy status to other drugs, medicaments and biological substances; Z91.040 Latex allergy status; Z91.048 Other nonmedicinal substance allergy status
CPT/HCPCS: 49083; P9047

== ENCOUNTER 2021-01-14 07:26 | Day surgery (SDC) | payer MEDICARE ==
[2021-01-10 09:19] VITALS: BMI 26.1
[2021-01-14] MEDS ORDERED: Albumin 25% 200 ML ONE (07:33)
[2021-01-14] MEDS ORDERED: Lidocaine 1% PF 5 ML VIAL ONE (07:33)
[2021-01-14] MEDS ORDERED: Sodium Bicarbonate 2.5 MEQ/5 ML VIAL ONE (07:33)
[2021-01-14 09:31] VITALS: BP 106/66; TEMP 98.6
== END 2021-01-14 09:45 | disposition home or self-care (01) ==
LOC: ULT 07:26
PROVIDERS: ATTEND Internal Medicine Gastroenterology
PROC: 0W9G3ZZ Drainage of Peritoneal Cavity, Percutaneous Approach (ICD-10-PCS; principal; 2021-01-14)
PROC: BW40ZZZ Ultrasonography of Abdomen (ICD-10-PCS; 2021-01-14)
DX: K74.60 Unspecified cirrhosis of liver (principal); R18.8 Other ascites; K72.90 Hepatic failure, unspecified without coma; E11.9 Type 2 diabetes mellitus without complications; I10 Essential (primary) hypertension; D64.9 Anemia, unspecified; E78.00 Pure hypercholesterolemia, unspecified; L40.50 Arthropathic psoriasis, unspecified; Z79.84 Long term (current) use of oral hypoglycemic drugs; Z79.899 Other long term (current) drug therapy; Z88.6 Allergy status to analgesic agent; Z88.8 Allergy status to other drugs, medicaments and biological substances; Z91.040 Latex allergy status; Z91.048 Other nonmedicinal substance allergy status
CPT/HCPCS: 49083; P9047

== ENCOUNTER 2021-01-21 07:23 | Day surgery (SDC) | payer MEDICARE ==
[2021-01-17 11:31] VITALS: BMI 26.1
[2021-01-21] MEDS ORDERED: Lidocaine 1% PF 5 ML VIAL ONE (07:34)
[2021-01-21] MEDS ORDERED: Albumin 25% 200 ML ONE (07:34)
[2021-01-21] MEDS ORDERED: Sodium Bicarbonate 2.5 MEQ/5 ML VIAL ONE (07:34)
[2021-01-21 09:29] VITALS: BP 127/49; TEMP 97.8
== END 2021-01-21 08:55 | disposition home or self-care (01) ==
LOC: ULT 07:23
PROVIDERS: ATTEND Internal Medicine Gastroenterology
PROC: 0W9G3ZZ Drainage of Peritoneal Cavity, Percutaneous Approach (ICD-10-PCS; principal; 2021-01-21)
DX: K74.60 Unspecified cirrhosis of liver (principal); R18.8 Other ascites; K72.90 Hepatic failure, unspecified without coma; E11.9 Type 2 diabetes mellitus without complications; I10 Essential (primary) hypertension; E78.5 Hyperlipidemia, unspecified; L40.50 Arthropathic psoriasis, unspecified; K21.9 Gastro-esophageal reflux disease without esophagitis; Z79.84 Long term (current) use of oral hypoglycemic drugs; Z79.899 Other long term (current) drug therapy; Z88.6 Allergy status to analgesic agent; Z88.8 Allergy status to other drugs, medicaments and biological substances; Z91.040 Latex allergy status; Z91.048 Other nonmedicinal substance allergy status
CPT/HCPCS: 49083; P9047

== ENCOUNTER 2021-01-28 07:22 | Day surgery (SDC) | payer MEDICARE ==
[2021-01-27 11:22] VITALS: BMI 26.1
[2021-01-28] MEDS ORDERED: Lidocaine 1% PF 5 ML VIAL ONE (07:58)
[2021-01-28] MEDS ORDERED: Sodium Bicarbonate 2.5 MEQ/5 ML VIAL ONE (07:58)
[2021-01-28] MEDS ORDERED: Albumin 25% 200 ML ONE (07:58)
[2021-01-28 08:07] LABS: #Eosinphils 0.1 thou/uL (0.0-0.7); #Lymphocytes 0.8 thou/uL (1.20-3.40); #Monocytes 0.4 thou/uL (0.11-0.59); #Neutrophils 3.4 thou/uL (1.40-6.50); %Basophils 0.8 % (0.0-1.0); %Eosinophils 1.5 % (0.0-10.0); %Lymphocytes 16.3 % (21.0-51.0); %Monocytes 8.7 % (0.0-10.0); %Neutrophils 72.8 % (42.0-75.0); Hemoglobin 10.4 g/dL (12.0-16.0); Mean Corpuscular Hemoglobin 26.2 pg (27.0-31.0); Mean Corpuscular Volume 81.7 fL (78.0-98.0); Mean Platelet Volume 11.7 fL (7.4-10.4); Platelet Count 162 thou/uL (130-400); RBC Distribution Width 15.3 % (11.5-14.5); Red Blood Cell (RBC) Count 3.98 mill/uL (4.20-5.40); White Blood Cell (WBC) Count 4.6 thou/uL (4.8-10.8)
[2021-01-28 08:11] LABS: INR-International Normal Ratio 1.1; PTT 38.7 sec (22.9-36.1); Prothrombin Time 14.8 sec (12.0-14.7)
[2021-01-28 09:04] LABS: Anion Gap 11 mmol/L (10-20); BUN (Urea Nitrogen) 26 mg/dL (9.8-20.1); Calc. Creatinine Clearance 41 mL/min (70-130); Calcium 8.9 mg/dL (7.8-10.44); Carbon Dioxide 22 mmol/L (23-31); Chloride 109 mmol/L (98-107); Glucose 180 mg/dL (83-110); Potassium 3.7 mmol/L (3.5-5.1); Sodium 138 mmol/L (136-145)
[2021-01-28 09:46] VITALS: BP 115/52; TEMP 97.8
== END 2021-01-28 09:40 | disposition home or self-care (01) ==
LOC: ULT 07:22
PROVIDERS: ATTEND Internal Medicine Gastroenterology
PROC: 0W9G3ZZ Drainage of Peritoneal Cavity, Percutaneous Approach (ICD-10-PCS; principal; 2021-01-28)
DX: K74.60 Unspecified cirrhosis of liver (principal); R18.8 Other ascites; K72.90 Hepatic failure, unspecified without coma; E11.9 Type 2 diabetes mellitus without complications; I10 Essential (primary) hypertension; E78.5 Hyperlipidemia, unspecified; L40.50 Arthropathic psoriasis, unspecified; K21.9 Gastro-esophageal reflux disease without esophagitis; Z79.84 Long term (current) use of oral hypoglycemic drugs; Z79.899 Other long term (current) drug therapy; Z88.6 Allergy status to analgesic agent; Z88.8 Allergy status to other drugs, medicaments and biological substances; Z91.040 Latex allergy status; Z91.048 Other nonmedicinal substance allergy status
CPT/HCPCS: 49083; 80048; 85025; 85610; 85730; P9047

== ENCOUNTER 2021-02-04 07:32 | Day surgery (SDC) | payer MEDICARE ==
[2021-01-30 10:10] VITALS: BMI 26.1
[2021-02-04] MEDS ORDERED: Sodium Bicarbonate 2.5 MEQ/5 ML VIAL ONE (07:38)
[2021-02-04] MEDS ORDERED: Lidocaine 1% PF 5 ML VIAL ONE (07:38)
[2021-02-04] MEDS ORDERED: Albumin 25% 200 ML ONE (09:13)
[2021-02-04 13:45] VITALS: BP 121/50; TEMP 98.2
== END 2021-02-04 09:00 | disposition home or self-care (01) ==
LOC: ULT 07:32
PROVIDERS: ATTEND Internal Medicine Gastroenterology
PROC: 0W9G3ZZ Drainage of Peritoneal Cavity, Percutaneous Approach (ICD-10-PCS; principal; 2021-02-04)
DX: K74.60 Unspecified cirrhosis of liver (principal); R18.8 Other ascites; K72.90 Hepatic failure, unspecified without coma; E11.9 Type 2 diabetes mellitus without complications; E78.5 Hyperlipidemia, unspecified; I10 Essential (primary) hypertension; L40.50 Arthropathic psoriasis, unspecified; D64.9 Anemia, unspecified; Z79.84 Long term (current) use of oral hypoglycemic drugs; Z79.899 Other long term (current) drug therapy; Z88.6 Allergy status to analgesic agent; Z88.8 Allergy status to other drugs, medicaments and biological substances; Z91.040 Latex allergy status; Z91.048 Other nonmedicinal substance allergy status
CPT/HCPCS: 49083; P9047

== ENCOUNTER 2021-02-11 07:29 | Day surgery (SDC) | payer MEDICARE ==
[2021-02-07 15:46] VITALS: BMI 26.1
[2021-02-11] MEDS ORDERED: Sodium Bicarbonate 2.5 MEQ/5 ML VIAL ONE (07:32)
[2021-02-11] MEDS ORDERED: Lidocaine 1% PF 5 ML VIAL ONE (07:32)
[2021-02-11] MEDS ORDERED: Albumin 25% 200 ML ONE (07:32)
[2021-02-11 09:10] VITALS: BP 127/58; TEMP 98.4
== END 2021-02-11 08:53 | disposition home or self-care (01) ==
LOC: ULT 07:29
PROVIDERS: ATTEND Internal Medicine Gastroenterology
PROC: 0W9G3ZZ Drainage of Peritoneal Cavity, Percutaneous Approach (ICD-10-PCS; principal; 2021-02-11)
DX: K74.60 Unspecified cirrhosis of liver (principal); R18.8 Other ascites; K72.90 Hepatic failure, unspecified without coma; E11.9 Type 2 diabetes mellitus without complications; E78.5 Hyperlipidemia, unspecified; I10 Essential (primary) hypertension; L40.50 Arthropathic psoriasis, unspecified; K21.9 Gastro-esophageal reflux disease without esophagitis; Z79.84 Long term (current) use of oral hypoglycemic drugs; Z79.899 Other long term (current) drug therapy; Z88.6 Allergy status to analgesic agent; Z88.8 Allergy status to other drugs, medicaments and biological substances; Z91.041 Radiographic dye allergy status; Z91.048 Other nonmedicinal substance allergy status
CPT/HCPCS: 49083; P9047

== ENCOUNTER 2021-02-18 07:20 | Day surgery (SDC) | payer MEDICARE ==
[2021-02-18] MEDS ORDERED: Lidocaine 1% PF 5 ML VIAL ONE (07:26)
[2021-02-18] MEDS ORDERED: Albumin 25% 200 ML ONE (07:26)
[2021-02-18] MEDS ORDERED: Sodium Bicarbonate 2.5 MEQ/5 ML VIAL ONE (07:26)
[2021-02-18 09:09] VITALS: BMI 26.1
[2021-02-18 09:10] VITALS: BP 131/53; TEMP 98.3
== END 2021-02-18 09:00 | disposition home or self-care (01) ==
LOC: ULT 07:20
PROVIDERS: ATTEND Internal Medicine Gastroenterology
PROC: 0W9G3ZZ Drainage of Peritoneal Cavity, Percutaneous Approach (ICD-10-PCS; principal; 2021-02-18)
DX: K74.60 Unspecified cirrhosis of liver (principal); R18.8 Other ascites; K72.90 Hepatic failure, unspecified without coma; I10 Essential (primary) hypertension; E11.9 Type 2 diabetes mellitus without complications; E78.00 Pure hypercholesterolemia, unspecified; E78.5 Hyperlipidemia, unspecified; D64.9 Anemia, unspecified; L40.50 Arthropathic psoriasis, unspecified; Z79.84 Long term (current) use of oral hypoglycemic drugs; Z79.899 Other long term (current) drug therapy; Z88.6 Allergy status to analgesic agent; Z88.8 Allergy status to other drugs, medicaments and biological substances; Z91.040 Latex allergy status; Z91.048 Other nonmedicinal substance allergy status
CPT/HCPCS: 49083; P9047

== ENCOUNTER 2021-02-25 07:37 | Day surgery (SDC) | payer MEDICARE ==
[2021-02-20 12:55] VITALS: BMI 26.1
[2021-02-25] MEDS ORDERED: Sodium Bicarbonate 2.5 MEQ/5 ML VIAL ONE (07:50)
[2021-02-25] MEDS ORDERED: Lidocaine 1% PF 5 ML VIAL ONE (07:50)
[2021-02-25] MEDS ORDERED: Albumin 25% 200 ML ONE (07:50)
[2021-02-25 08:05] LABS: #Eosinphils 0.1 thou/uL (0.0-0.7); #Lymphocytes 0.8 thou/uL (1.20-3.40); #Monocytes 0.5 thou/uL (0.11-0.59); #Neutrophils 4.1 thou/uL (1.40-6.50); %Basophils 0.3 % (0.0-1.0); %Eosinophils 2.2 % (0.0-10.0); %Lymphocytes 14.3 % (21.0-51.0); %Neutrophils 74.2 % (42.0-75.0); Hemoglobin 9.8 g/dL (12.0-16.0); Mean Corpuscular HGB CONC 32.5 g/dL (32.0-36.0); Mean Corpuscular Hemoglobin 26.2 pg (27.0-31.0); Mean Corpuscular Volume 80.5 fL (78.0-98.0); Mean Platelet Volume 11.7 fL (7.4-10.4); Platelet Count 167 thou/uL (130-400); Red Blood Cell (RBC) Count 3.76 mill/uL (4.20-5.40); White Blood Cell (WBC) Count 5.5 thou/uL (4.8-10.8)
[2021-02-25 08:19] LABS: INR-International Normal Ratio 1.1; Prothrombin Time 14.6 sec (12.0-14.7)
[2021-02-25 08:20] LABS: PTT 37.9 sec (22.9-36.1)
[2021-02-25 08:20] LABS: Anion Gap 14 mmol/L (10-20); BUN (Urea Nitrogen) 29 mg/dL (9.8-20.1); Calc. Creatinine Clearance 34 mL/min (70-130); Calcium 8.7 mg/dL (7.8-10.44); Carbon Dioxide 22 mmol/L (23-31); Chloride 105 mmol/L (98-107); Glucose 179 mg/dL (83-110); Potassium 4.1 mmol/L (3.5-5.1); Sodium 137 mmol/L (136-145)
[2021-02-25 10:22] VITALS: BP 127/53; TEMP 98.2
== END 2021-02-25 09:00 | disposition home or self-care (01) ==
LOC: ULT 07:37
PROVIDERS: ATTEND Internal Medicine Gastroenterology
PROC: 0W9G3ZZ Drainage of Peritoneal Cavity, Percutaneous Approach (ICD-10-PCS; principal; 2021-02-25)
DX: K74.60 Unspecified cirrhosis of liver (principal); R18.8 Other ascites; K72.90 Hepatic failure, unspecified without coma; E11.9 Type 2 diabetes mellitus without complications; E78.00 Pure hypercholesterolemia, unspecified; I10 Essential (primary) hypertension; L40.50 Arthropathic psoriasis, unspecified; K21.9 Gastro-esophageal reflux disease without esophagitis; E78.5 Hyperlipidemia, unspecified; Z79.84 Long term (current) use of oral hypoglycemic drugs; Z79.899 Other long term (current) drug therapy; Z88.6 Allergy status to analgesic agent; Z88.8 Allergy status to other drugs, medicaments and biological substances; Z91.040 Latex allergy status; Z91.048 Other nonmedicinal substance allergy status
CPT/HCPCS: 49083; 80048; 85025; 85610; 85730; P9047

== ENCOUNTER 2021-03-04 07:30 | Day surgery (SDC) | payer MEDICARE ==
[2021-02-28 11:50] VITALS: BMI 26.1
[2021-03-04] MEDS ORDERED: Albumin 25% 200 ML ONE (07:42)
[2021-03-04] MEDS ORDERED: Sodium Bicarbonate 2.5 MEQ/5 ML VIAL ONE (07:42)
[2021-03-04] MEDS ORDERED: Lidocaine 1% PF 5 ML VIAL ONE (07:42)
[2021-03-04 09:55] VITALS: BP 121/71; TEMP 98
[2021-03-04 09:59] LABS: Hemoglobin 9.8 g/dL (12.0-16.0); Mean Corpuscular HGB CONC 31.8 g/dL (32.0-36.0); Mean Corpuscular Hemoglobin 25.8 pg (27.0-31.0); Mean Corpuscular Volume 81.2 fL (78.0-98.0); Mean Platelet Volume 11.9 fL (7.4-10.4); Platelet Count 173 thou/uL (130-400); Red Blood Cell (RBC) Count 3.81 mill/uL (4.20-5.40); White Blood Cell (WBC) Count 5.9 thou/uL (4.8-10.8)
[2021-03-04 10:19] LABS: Anion Gap 19 mmol/L (10-20); BUN (Urea Nitrogen) 39 mg/dL (9.8-20.1); Calc. Creatinine Clearance 37 mL/min (70-130); Calcium 9.4 mg/dL (7.8-10.44); Carbon Dioxide 17 mmol/L (23-31); Chloride 103 mmol/L (98-107); Glucose 129 mg/dL (83-110); Potassium 4.2 mmol/L (3.5-5.1); Sodium 135 mmol/L (136-145)
[2021-03-04 11:14] LABS: Band 3 % (5-11); Eosinophils 3 % (0-10); Lymphocytes 20 % (21-51); MDiff Complete? YES; Monocytes 8 % (0-10); Neutrophil 64 % (42-75); Platelet Morphology Comment Appears Adequate; Polychromasia SLIGHT = 2-3 cells (100X) (0-2/hpf); Reactive Lymphocytes 1 % (0-10)
== END 2021-03-04 09:00 | disposition home or self-care (01) ==
LOC: ULT 07:30
PROVIDERS: ATTEND Internal Medicine Gastroenterology
PROC: 0W9G3ZZ Drainage of Peritoneal Cavity, Percutaneous Approach (ICD-10-PCS; principal; 2021-03-04)
DX: K74.60 Unspecified cirrhosis of liver (principal); R18.8 Other ascites; K72.90 Hepatic failure, unspecified without coma; E11.9 Type 2 diabetes mellitus without complications; E78.5 Hyperlipidemia, unspecified; I10 Essential (primary) hypertension; L40.50 Arthropathic psoriasis, unspecified; K21.9 Gastro-esophageal reflux disease without esophagitis; Z79.84 Long term (current) use of oral hypoglycemic drugs; Z79.899 Other long term (current) drug therapy; Z88.6 Allergy status to analgesic agent; Z88.8 Allergy status to other drugs, medicaments and biological substances; Z91.040 Latex allergy status; Z91.048 Other nonmedicinal substance allergy status
CPT/HCPCS: 49083; 80048; 85007; 85027; P9047

== ENCOUNTER 2021-03-11 07:20 | Day surgery (SDC) | payer MEDICARE ==
[2021-03-06 14:56] VITALS: BMI 26.1
[2021-03-11] MEDS ORDERED: Albumin 25% 200 ML ONE (07:30)
[2021-03-11] MEDS ORDERED: Sodium Bicarbonate 2.5 MEQ/5 ML VIAL ONE (07:30)
[2021-03-11] MEDS ORDERED: Lidocaine 1% PF 5 ML VIAL ONE (07:30)
[2021-03-11 09:47] VITALS: BP 108/64; TEMP 97.7
== END 2021-03-11 09:30 | disposition home or self-care (01) ==
LOC: ULT 07:20
PROVIDERS: ATTEND Internal Medicine Gastroenterology
PROC: 0W9G3ZZ Drainage of Peritoneal Cavity, Percutaneous Approach (ICD-10-PCS; principal; 2021-03-11)
DX: K74.60 Unspecified cirrhosis of liver (principal); R18.8 Other ascites; K72.90 Hepatic failure, unspecified without coma; E11.9 Type 2 diabetes mellitus without complications; I10 Essential (primary) hypertension; E78.5 Hyperlipidemia, unspecified; E78.00 Pure hypercholesterolemia, unspecified; L40.50 Arthropathic psoriasis, unspecified; D64.9 Anemia, unspecified; K21.9 Gastro-esophageal reflux disease without esophagitis; Z79.84 Long term (current) use of oral hypoglycemic drugs; Z79.899 Other long term (current) drug therapy; Z91.040 Latex allergy status; Z91.048 Other nonmedicinal substance allergy status; Z88.6 Allergy status to analgesic agent; Z88.8 Allergy status to other drugs, medicaments and biological substances; Z85.820 Personal history of malignant melanoma of skin; Z87.19 Personal history of other diseases of the digestive system; Z90.49 Acquired absence of other specified parts of digestive tract; Z87.442 Personal history of urinary calculi
CPT/HCPCS: 49083; 82105; P9047

== ENCOUNTER 2021-03-18 07:22 | Day surgery (SDC) | payer MEDICARE ==
[2021-03-18] MEDS ORDERED: Albumin 25% 200 ML ONE (07:41)
[2021-03-18] MEDS ORDERED: Lidocaine 1% PF 5 ML VIAL ONE (07:41)
[2021-03-18] MEDS ORDERED: Sodium Bicarbonate 2.5 MEQ/5 ML VIAL ONE (07:41)
[2021-03-18 13:37] VITALS: BP 106/53
== END 2021-03-18 09:15 | disposition home or self-care (01) ==
LOC: ULT 07:22
PROVIDERS: ATTEND Internal Medicine Gastroenterology
PROC: 0W9G3ZZ Drainage of Peritoneal Cavity, Percutaneous Approach (ICD-10-PCS; principal; 2021-03-18)
DX: K74.60 Unspecified cirrhosis of liver (principal); R18.8 Other ascites; K72.90 Hepatic failure, unspecified without coma; E11.9 Type 2 diabetes mellitus without complications; I10 Essential (primary) hypertension; E78.5 Hyperlipidemia, unspecified; L40.50 Arthropathic psoriasis, unspecified; K21.9 Gastro-esophageal reflux disease without esophagitis; Z79.84 Long term (current) use of oral hypoglycemic drugs; Z79.899 Other long term (current) drug therapy; Z88.6 Allergy status to analgesic agent; Z88.8 Allergy status to other drugs, medicaments and biological substances; Z91.040 Latex allergy status; Z91.048 Other nonmedicinal substance allergy status
CPT/HCPCS: 49083; P9047

== ENCOUNTER 2021-04-15 07:31 | Day surgery (SDC) | payer MEDICARE ==
[2021-04-14 14:12] VITALS: BMI 26.1
[2021-04-15] MEDS ORDERED: Sodium Bicarbonate 2.5 MEQ/5 ML VIAL ONE (07:34)
[2021-04-15] MEDS ORDERED: Lidocaine 1% PF 5 ML VIAL ONE (07:34)
[2021-04-15] MEDS ORDERED: Albumin 25% 200 ML ONE (07:34)
[2021-04-15 09:30] VITALS: BP 116/58; TEMP 98.2
== END 2021-04-15 09:20 | disposition home or self-care (01) ==
LOC: ULT 07:31
PROVIDERS: ATTEND Internal Medicine Gastroenterology
PROC: 0W9G3ZZ Drainage of Peritoneal Cavity, Percutaneous Approach (ICD-10-PCS; principal; 2021-04-15)
DX: K74.60 Unspecified cirrhosis of liver (principal); R18.8 Other ascites; K72.90 Hepatic failure, unspecified without coma; E11.9 Type 2 diabetes mellitus without complications; E78.5 Hyperlipidemia, unspecified; I10 Essential (primary) hypertension; L40.50 Arthropathic psoriasis, unspecified; K21.9 Gastro-esophageal reflux disease without esophagitis; Z79.84 Long term (current) use of oral hypoglycemic drugs; Z79.899 Other long term (current) drug therapy; Z88.6 Allergy status to analgesic agent; Z88.8 Allergy status to other drugs, medicaments and biological substances; Z91.040 Latex allergy status; Z91.048 Other nonmedicinal substance allergy status
CPT/HCPCS: 49083; P9047

== ENCOUNTER 2021-05-13 07:30 | Day surgery (SDC) | payer MEDICARE ==
[2021-05-07 14:15] VITALS: BMI 26.1
[2021-05-13] MEDS ORDERED: Albumin 25% 200 ML ONE (08:01)
[2021-05-13] MEDS ORDERED: Sodium Bicarbonate 2.5 MEQ/5 ML VIAL ONE (08:02)
[2021-05-13] MEDS ORDERED: Lidocaine 1% PF 5 ML VIAL ONE (08:02)
[2021-05-13 09:53] VITALS: BP 121/48; TEMP 98.1
== END 2021-05-13 09:40 | disposition home or self-care (01) ==
LOC: ULT 07:30
PROVIDERS: ATTEND Internal Medicine Gastroenterology
PROC: 0W9G3ZZ Drainage of Peritoneal Cavity, Percutaneous Approach (ICD-10-PCS; principal; 2021-05-13)
DX: K74.60 Unspecified cirrhosis of liver (principal); R18.8 Other ascites; K72.90 Hepatic failure, unspecified without coma; E11.9 Type 2 diabetes mellitus without complications; E78.5 Hyperlipidemia, unspecified; I10 Essential (primary) hypertension; L40.50 Arthropathic psoriasis, unspecified; K21.9 Gastro-esophageal reflux disease without esophagitis; Z79.84 Long term (current) use of oral hypoglycemic drugs; Z79.899 Other long term (current) drug therapy; Z88.6 Allergy status to analgesic agent; Z88.8 Allergy status to other drugs, medicaments and biological substances; Z91.040 Latex allergy status; Z91.048 Other nonmedicinal substance allergy status
CPT/HCPCS: 49083; P9047

== ENCOUNTER → 2021-05-20 | Day surgery (SDC) | payer MEDICARE ==
[2021-05-19 15:09] VITALS: BMI 26.1
[2021-05-20 08:44] LABS: #Eosinphils 0.1 thou/uL (0.0-0.7); #Lymphocytes 0.6 thou/uL (1.20-3.40); #Monocytes 0.4 thou/uL (0.11-0.59); #Neutrophils 4.1 thou/uL (1.40-6.50); %Basophils 0.9 % (0.0-1.0); %Eosinophils 1.6 % (0.0-10.0); %Lymphocytes 12.1 % (21.0-51.0); %Neutrophils 77.3 % (42.0-75.0); Hemoglobin 11.8 g/dL (12.0-16.0); Mean Corpuscular HGB CONC 32.6 g/dL (32.0-36.0); Mean Corpuscular Hemoglobin 27.5 pg (27.0-31.0); Mean Corpuscular Volume 84.4 fL (78.0-98.0); Mean Platelet Volume 8.9 fL (7.4-10.4); Platelet Count 145 thou/uL (130-400); RBC Distribution Width 21.1 % (11.5-14.5); Red Blood Cell (RBC) Count 4.28 mill/uL (4.20-5.40); White Blood Cell (WBC) Count 5.2 thou/uL (4.8-10.8)
[2021-05-20 08:57] LABS: INR-International Normal Ratio 1.1; Prothrombin Time 14.4 sec (12.0-14.7)
[2021-05-20 08:58] LABS: PTT 40.3 sec (22.9-36.1)
[2021-05-20 08:59] LABS: Anion Gap 12 mmol/L (10-20); BUN (Urea Nitrogen) 32 mg/dL (9.8-20.1); Calc. Creatinine Clearance 33 mL/min (70-130); Calcium 9.5 mg/dL (7.8-10.44); Carbon Dioxide 23 mmol/L (23-31); Chloride 108 mmol/L (98-107); Glucose 215 mg/dL (83-110); Potassium 3.8 mmol/L (3.5-5.1); Sodium 139 mmol/L (136-145)
== END ==
LOC: ULT 07:29
PROVIDERS: ATTEND Internal Medicine Gastroenterology
PROC: 0W9G3ZZ Drainage of Peritoneal Cavity, Percutaneous Approach (ICD-10-PCS; principal; 2021-05-20)
DX: K74.60 Unspecified cirrhosis of liver (principal); R18.8 Other ascites; K72.90 Hepatic failure, unspecified without coma; E11.9 Type 2 diabetes mellitus without complications; I10 Essential (primary) hypertension; E78.5 Hyperlipidemia, unspecified; L40.50 Arthropathic psoriasis, unspecified; K21.9 Gastro-esophageal reflux disease without esophagitis; Z79.84 Long term (current) use of oral hypoglycemic drugs; Z79.899 Other long term (current) drug therapy; Z88.6 Allergy status to analgesic agent; Z88.8 Allergy status to other drugs, medicaments and biological substances; Z91.040 Latex allergy status; Z91.048 Other nonmedicinal substance allergy status
CPT/HCPCS: 49083; 80048; 85025; 85610; 85730; P9047

== ENCOUNTER 2021-05-27 07:26 | Day surgery (SDC) | payer MEDICARE ==
[2021-05-26 14:02] VITALS: BMI 26.1
[2021-05-27] MEDS ORDERED: Albumin 25% 200 ML ONE (07:43)
[2021-05-27] MEDS ORDERED: Sodium Bicarbonate 2.5 MEQ/5 ML VIAL ONE (07:43)
[2021-05-27] MEDS ORDERED: Lidocaine 1% PF 5 ML VIAL ONE (07:43)
[2021-05-27 08:09] VITALS: TEMP 97.4
[2021-05-27 08:50] VITALS: BP 104/51
== END 2021-05-27 08:56 | disposition home or self-care (01) ==
LOC: ULT 07:26
PROVIDERS: ATTEND Internal Medicine Gastroenterology
PROC: 0W9G3ZZ Drainage of Peritoneal Cavity, Percutaneous Approach (ICD-10-PCS; principal; 2021-05-27)
DX: K74.60 Unspecified cirrhosis of liver (principal); R18.8 Other ascites; Z88.6 Allergy status to analgesic agent; Z88.8 Allergy status to other drugs, medicaments and biological substances; Z91.040 Latex allergy status; Z91.048 Other nonmedicinal substance allergy status
CPT/HCPCS: 49083; P9047

== ENCOUNTER 2021-06-03 07:24 | Day surgery (SDC) | payer MEDICARE ==
[2021-06-03] MEDS ORDERED: Albumin 25% 200 ML ONE (07:53)
[2021-06-03] MEDS ORDERED: Sodium Bicarbonate 2.5 MEQ/5 ML VIAL ONE (07:53)
[2021-06-03] MEDS ORDERED: Lidocaine 1% PF 5 ML VIAL ONE (07:53)
[2021-06-03 12:12] VITALS: BP 120/55
== END 2021-06-03 09:00 | disposition home or self-care (01) ==
LOC: ULT 07:24
PROVIDERS: ATTEND Internal Medicine Gastroenterology
PROC: 0W9G3ZZ Drainage of Peritoneal Cavity, Percutaneous Approach (ICD-10-PCS; principal; 2021-06-03)
DX: K74.60 Unspecified cirrhosis of liver (principal); R18.8 Other ascites; K72.90 Hepatic failure, unspecified without coma; E11.9 Type 2 diabetes mellitus without complications; E78.5 Hyperlipidemia, unspecified; D64.9 Anemia, unspecified; L40.50 Arthropathic psoriasis, unspecified; Z88.6 Allergy status to analgesic agent; Z88.8 Allergy status to other drugs, medicaments and biological substances; Z91.040 Latex allergy status; Z91.048 Other nonmedicinal substance allergy status; Z85.820 Personal history of malignant melanoma of skin; Z98.890 Other specified postprocedural states; Z87.442 Personal history of urinary calculi; Z87.19 Personal history of other diseases of the digestive system
CPT/HCPCS: 49083; P9047

== ENCOUNTER 2021-06-10 07:26 | Day surgery (SDC) | payer MEDICARE ==
[2021-06-06 14:01] VITALS: BMI 26.6
[2021-06-10] MEDS ORDERED: Sodium Bicarbonate 2.5 MEQ/5 ML VIAL ONE (07:53)
[2021-06-10] MEDS ORDERED: Lidocaine 1% PF 5 ML VIAL ONE (07:53)
[2021-06-10] MEDS ORDERED: Albumin 25% 200 ML ONE (07:53)
[2021-06-10] MEDS ORDERED: Albumin 25% 25 GM/100 ML BOT IVPB SCH (09:00)
[2021-06-10 09:18] VITALS: BP 120/66
== END 2021-06-10 09:25 | disposition home or self-care (01) ==
LOC: ULT 07:26
PROVIDERS: ATTEND Internal Medicine Gastroenterology
PROC: 0W9G3ZZ Drainage of Peritoneal Cavity, Percutaneous Approach (ICD-10-PCS; principal; 2021-06-10)
DX: K74.60 Unspecified cirrhosis of liver (principal); R18.8 Other ascites; K72.90 Hepatic failure, unspecified without coma; E11.9 Type 2 diabetes mellitus without complications; E78.00 Pure hypercholesterolemia, unspecified; L40.50 Arthropathic psoriasis, unspecified; Z79.84 Long term (current) use of oral hypoglycemic drugs; Z79.899 Other long term (current) drug therapy; Z88.6 Allergy status to analgesic agent; Z88.8 Allergy status to other drugs, medicaments and biological substances; Z91.040 Latex allergy status; Z91.048 Other nonmedicinal substance allergy status; D50.0 Iron deficiency anemia secondary to blood loss (chronic)
CPT/HCPCS: 49083; 82728; 83540; 83550; P9047; 36415

== ENCOUNTER → 2021-06-17 | Day surgery (SDC) | payer MEDICARE ==
[2021-06-16 11:20] VITALS: BMI 26.1
== END ==
LOC: ULT 07:22
PROVIDERS: ATTEND Internal Medicine Gastroenterology
PROC: 0W9G30Z Drainage of Peritoneal Cavity with Drainage Device, Percutaneous Approach (ICD-10-PCS; principal; 2021-06-17)
DX: K74.60 Unspecified cirrhosis of liver (principal); R18.8 Other ascites; K72.90 Hepatic failure, unspecified without coma; E11.9 Type 2 diabetes mellitus without complications; E78.5 Hyperlipidemia, unspecified; M19.90 Unspecified osteoarthritis, unspecified site; D64.9 Anemia, unspecified; K21.9 Gastro-esophageal reflux disease without esophagitis; Z91.048 Other nonmedicinal substance allergy status; Z91.040 Latex allergy status; Z88.6 Allergy status to analgesic agent; Z88.8 Allergy status to other drugs, medicaments and biological substances; Z90.49 Acquired absence of other specified parts of digestive tract; Z87.19 Personal history of other diseases of the digestive system; Z87.442 Personal history of urinary calculi
CPT/HCPCS: 49083; P9047

== ENCOUNTER 2021-06-24 07:26 | Day surgery (SDC) | payer MEDICARE ==
[2021-06-24] MEDS ORDERED: Albumin 25% 200 ML ONE (07:31)
[2021-06-24] MEDS ORDERED: Lidocaine 1% PF 5 ML VIAL ONE (07:31)
[2021-06-24] MEDS ORDERED: Sodium Bicarbonate 2.5 MEQ/5 ML VIAL ONE (07:31)
[2021-06-24 07:52] LABS: #Eosinphils 0.1 thou/uL (0.0-0.7); #Lymphocytes 0.9 thou/uL (1.20-3.40); #Monocytes 0.5 thou/uL (0.11-0.59); #Neutrophils 4.2 thou/uL (1.40-6.50); %Eosinophils 2.5 % (0.0-10.0); %Lymphocytes 15.2 % (21.0-51.0); %Neutrophils 74.4 % (42.0-75.0); Hemoglobin 12.6 g/dL (12.0-16.0); Mean Corpuscular HGB CONC 34.1 g/dL (32.0-36.0); Mean Corpuscular Hemoglobin 29.9 pg (27.0-31.0); Mean Corpuscular Volume 87.8 fL (78.0-98.0); Mean Platelet Volume 12.3 fL (7.4-10.4); Platelet Count 120 thou/uL (130-400); RBC Distribution Width 19.6 % (11.5-14.5); Red Blood Cell (RBC) Count 4.22 mill/uL (4.20-5.40); White Blood Cell (WBC) Count 5.7 thou/uL (4.8-10.8)
[2021-06-24 08:01] LABS: INR-International Normal Ratio 1.1; Prothrombin Time 14.4 sec (12.0-14.7)
[2021-06-24 08:02] LABS: PTT 41.8 sec (22.9-36.1)
[2021-06-24 08:12] LABS: Anion Gap 13 mmol/L (10-20); BUN (Urea Nitrogen) 31 mg/dL (9.8-20.1); Calc. Creatinine Clearance 0 mL/min (70-130); Carbon Dioxide 24 mmol/L (23-31); Chloride 105 mmol/L (98-107); Glucose 176 mg/dL (83-110); Potassium 4.1 mmol/L (3.5-5.1); Sodium 138 mmol/L (136-145)
[2021-06-24 11:28] VITALS: TEMP 98
[2021-06-24 11:33] VITALS: BP 111/65; BMI 28.3
== END 2021-06-24 09:10 | disposition home or self-care (01) ==
LOC: ULT 07:26
PROVIDERS: ATTEND Internal Medicine Gastroenterology
PROC: 0W9G3ZZ Drainage of Peritoneal Cavity, Percutaneous Approach (ICD-10-PCS; principal; 2021-06-24)
DX: K74.60 Unspecified cirrhosis of liver (principal); R18.8 Other ascites; Z79.84 Long term (current) use of oral hypoglycemic drugs; Z79.899 Other long term (current) drug therapy; Z88.6 Allergy status to analgesic agent; Z88.8 Allergy status to other drugs, medicaments and biological substances; Z91.040 Latex allergy status; Z91.048 Other nonmedicinal substance allergy status
CPT/HCPCS: 49083; 80048; 85025; 85610; 85730; P9047

== ENCOUNTER 2021-07-01 07:22 | Day surgery (SDC) | payer MEDICARE ==
[2021-06-30 12:31] VITALS: BMI 26.1
[2021-07-01] MEDS ORDERED: Lidocaine 1% PF 5 ML VIAL ONE (07:33)
[2021-07-01] MEDS ORDERED: Albumin 25% 200 ML ONE (07:33)
[2021-07-01] MEDS ORDERED: Sodium Bicarbonate 2.5 MEQ/5 ML VIAL ONE (07:33)
[2021-07-01 08:32] VITALS: TEMP 98
[2021-07-01 09:07] VITALS: BP 117/60
[2021-07-01] MEDS ORDERED: Albumin 25% 25 GM/100 ML BOT IVPB SCH (09:30)
== END 2021-07-01 09:10 | disposition home or self-care (01) ==
LOC: ULT 07:22
PROVIDERS: ATTEND Internal Medicine Gastroenterology
PROC: 0W9G3ZZ Drainage of Peritoneal Cavity, Percutaneous Approach (ICD-10-PCS; principal; 2021-07-01)
DX: K74.60 Unspecified cirrhosis of liver (principal); R18.8 Other ascites; Z88.6 Allergy status to analgesic agent; Z88.8 Allergy status to other drugs, medicaments and biological substances; Z91.040 Latex allergy status; Z91.048 Other nonmedicinal substance allergy status
CPT/HCPCS: 49083; P9047

== ENCOUNTER → 2021-07-08 | Day surgery (SDC) | payer MEDICARE ==
[2021-07-04 13:27] VITALS: BMI 26.6
== END ==
LOC: ULT 07:30
PROVIDERS: ATTEND Internal Medicine Gastroenterology
PROC: 0W9G3ZZ Drainage of Peritoneal Cavity, Percutaneous Approach (ICD-10-PCS; principal; 2021-07-08)
DX: K74.60 Unspecified cirrhosis of liver (principal); R18.8 Other ascites; K72.90 Hepatic failure, unspecified without coma; I25.2 Old myocardial infarction; E78.5 Hyperlipidemia, unspecified; L40.50 Arthropathic psoriasis, unspecified; K21.9 Gastro-esophageal reflux disease without esophagitis; Z79.84 Long term (current) use of oral hypoglycemic drugs; Z79.899 Other long term (current) drug therapy; Z88.6 Allergy status to analgesic agent; Z88.8 Allergy status to other drugs, medicaments and biological substances; Z91.040 Latex allergy status; Z91.048 Other nonmedicinal substance allergy status
CPT/HCPCS: 49083; P9047

== ENCOUNTER 2021-07-15 07:18 | Day surgery (SDC) | payer MEDICARE ==
[2021-07-14 10:16] VITALS: BMI 26.1
[2021-07-15] MEDS ORDERED: Sodium Bicarbonate 2.5 MEQ/5 ML VIAL ONE (07:22)
[2021-07-15] MEDS ORDERED: Albumin 25% 200 ML ONE (07:22)
[2021-07-15] MEDS ORDERED: Lidocaine 1% PF 5 ML VIAL ONE (07:23)
[2021-07-15 10:01] VITALS: BP 127/62; TEMP 98.1
== END 2021-07-15 09:40 | disposition home or self-care (01) ==
LOC: ULT 07:18
PROVIDERS: ATTEND Internal Medicine Gastroenterology
PROC: 0W9G3ZZ Drainage of Peritoneal Cavity, Percutaneous Approach (ICD-10-PCS; principal; 2021-07-15)
DX: K74.60 Unspecified cirrhosis of liver (principal); R18.8 Other ascites; K72.90 Hepatic failure, unspecified without coma; E11.9 Type 2 diabetes mellitus without complications; I10 Essential (primary) hypertension; E78.5 Hyperlipidemia, unspecified; L40.50 Arthropathic psoriasis, unspecified; K21.9 Gastro-esophageal reflux disease without esophagitis; Z79.84 Long term (current) use of oral hypoglycemic drugs; Z79.899 Other long term (current) drug therapy; Z88.6 Allergy status to analgesic agent; Z88.8 Allergy status to other drugs, medicaments and biological substances; Z91.040 Latex allergy status; Z91.048 Other nonmedicinal substance allergy status
CPT/HCPCS: 49083; P9047

== ENCOUNTER 2021-07-22 07:23 | Day surgery (SDC) | payer MEDICARE ==
[2021-07-18 14:49] VITALS: BMI 26.1
[2021-07-22] MEDS ORDERED: Albumin 25% 200 ML ONE (07:27)
[2021-07-22] MEDS ORDERED: Sodium Bicarbonate 2.5 MEQ/5 ML VIAL ONE (07:27)
[2021-07-22] MEDS ORDERED: Lidocaine 1% PF 5 ML VIAL ONE (07:27)
[2021-07-22 08:59] VITALS: BP 116/66; TEMP 97.8
== END 2021-07-22 08:40 | disposition home or self-care (01) ==
LOC: ULT 07:23
PROVIDERS: ATTEND Internal Medicine Gastroenterology
PROC: 0W9G3ZZ Drainage of Peritoneal Cavity, Percutaneous Approach (ICD-10-PCS; principal; 2021-07-22)
DX: K74.60 Unspecified cirrhosis of liver (principal); R18.8 Other ascites; K72.90 Hepatic failure, unspecified without coma; E11.9 Type 2 diabetes mellitus without complications; I10 Essential (primary) hypertension; E78.5 Hyperlipidemia, unspecified; L40.50 Arthropathic psoriasis, unspecified; K21.9 Gastro-esophageal reflux disease without esophagitis; Z79.84 Long term (current) use of oral hypoglycemic drugs; Z79.899 Other long term (current) drug therapy; Z88.6 Allergy status to analgesic agent; Z88.8 Allergy status to other drugs, medicaments and biological substances; Z91.040 Latex allergy status; Z91.048 Other nonmedicinal substance allergy status
CPT/HCPCS: 49083; P9047

== ENCOUNTER 2021-07-29 07:19 | Day surgery (SDC) | payer MEDICARE ==
[2021-07-28 09:51] VITALS: BMI 27.8
[2021-07-29 08:00] LABS: Prothrombin Time 13.4 sec (12.0-14.7)
[2021-07-29 08:01] LABS: PTT 40.3 sec (22.9-36.1)
[2021-07-29] MEDS ORDERED: Albumin 25% 200 ML ONE (08:06)
[2021-07-29] MEDS ORDERED: Lidocaine 1% PF 5 ML VIAL ONE (08:06)
[2021-07-29] MEDS ORDERED: Sodium Bicarbonate 2.5 MEQ/5 ML VIAL ONE (08:06)
[2021-07-29] MEDS ORDERED: Sodium Chloride 0.9% 10 ML ONE (08:06)
[2021-07-29 08:38] LABS: #Eosinphils 0.1 thou/uL (0.0-0.7); #Lymphocytes 0.9 thou/uL (1.20-3.40); #Monocytes 0.4 thou/uL (0.11-0.59); #Neutrophils 4.2 thou/uL (1.40-6.50); %Basophils 0.3 % (0.0-1.0); %Eosinophils 1.4 % (0.0-10.0); %Lymphocytes 15.7 % (21.0-51.0); %Monocytes 7.6 % (0.0-10.0); Hemoglobin 12.9 g/dL (12.0-16.0); Mean Corpuscular HGB CONC 33.4 g/dL (32.0-36.0); Mean Corpuscular Hemoglobin 30.6 pg (27.0-31.0); Mean Corpuscular Volume 91.6 fL (78.0-98.0); Mean Platelet Volume 11.5 fL (7.4-10.4); Platelet Count 129 thou/uL (130-400); RBC Distribution Width 15.9 % (11.5-14.5); Red Blood Cell (RBC) Count 4.22 mill/uL (4.20-5.40); White Blood Cell (WBC) Count 5.6 thou/uL (4.8-10.8)
[2021-07-29 09:23] VITALS: BP 118/60; TEMP 98.4
== END 2021-07-29 09:05 | disposition home or self-care (01) ==
LOC: ULT 07:19
PROVIDERS: ATTEND Internal Medicine Gastroenterology
PROC: 0W9G3ZZ Drainage of Peritoneal Cavity, Percutaneous Approach (ICD-10-PCS; principal; 2021-07-29)
DX: K74.60 Unspecified cirrhosis of liver (principal); R18.8 Other ascites; Z88.6 Allergy status to analgesic agent; Z88.8 Allergy status to other drugs, medicaments and biological substances; Z91.040 Latex allergy status; Z91.048 Other nonmedicinal substance allergy status
CPT/HCPCS: 49083; 85025; 85610; 85730; P9047

== ENCOUNTER 2021-08-05 07:43 | Day surgery (SDC) | payer MEDICARE ==
[2021-08-05] MEDS ORDERED: Sodium Bicarbonate 2.5 MEQ/5 ML VIAL ONE (08:10)
[2021-08-05] MEDS ORDERED: Lidocaine 1% PF 5 ML VIAL ONE (08:10)
[2021-08-05] MEDS ORDERED: Albumin 25% 200 ML ONE (08:10)
[2021-08-05] MEDS ORDERED: Albumin 25% 25 GM/100 ML BOT IVPB SCH (09:15)
[2021-08-05 13:14] VITALS: BP 124/58
== END 2021-08-05 09:45 | disposition home or self-care (01) ==
LOC: ULT 07:43
PROVIDERS: ATTEND Internal Medicine Gastroenterology
PROC: 0W9G3ZZ Drainage of Peritoneal Cavity, Percutaneous Approach (ICD-10-PCS; principal; 2021-08-05)
DX: K74.60 Unspecified cirrhosis of liver (principal); R18.8 Other ascites; Z88.6 Allergy status to analgesic agent; Z88.8 Allergy status to other drugs, medicaments and biological substances; Z91.040 Latex allergy status; Z91.048 Other nonmedicinal substance allergy status
CPT/HCPCS: 49083; P9047

== ENCOUNTER 2021-08-12 07:29 | Day surgery (SDC) | payer MEDICARE ==
[2021-08-11 13:25] VITALS: BMI 26.1
[2021-08-12] MEDS ORDERED: Lidocaine 1% PF 5 ML VIAL ONE (07:38)
[2021-08-12] MEDS ORDERED: Albumin 25% 200 ML ONE (07:38)
[2021-08-12] MEDS ORDERED: Sodium Bicarbonate 2.5 MEQ/5 ML VIAL ONE (07:38)
[2021-08-12 09:57] VITALS: BP 98/67
[2021-08-12] MEDS ORDERED: Albumin 25% 25 GM/100 ML BOT IVPB SCH (10:00)
== END 2021-08-12 09:35 | disposition home or self-care (01) ==
LOC: ULT 07:29
PROVIDERS: ATTEND Internal Medicine Gastroenterology
PROC: 0W9G3ZZ Drainage of Peritoneal Cavity, Percutaneous Approach (ICD-10-PCS; principal; 2021-08-12)
DX: K74.60 Unspecified cirrhosis of liver (principal); R18.8 Other ascites; Z88.6 Allergy status to analgesic agent; Z88.8 Allergy status to other drugs, medicaments and biological substances; Z91.040 Latex allergy status; Z91.048 Other nonmedicinal substance allergy status
CPT/HCPCS: 49083; P9047

== ENCOUNTER 2021-08-19 07:24 | Day surgery (SDC) | payer MEDICARE ==
[2021-08-15 15:05] VITALS: BMI 26.6
[~2021-08-19 07:24] MED LIST changes: -Albumin 25% 200 ML ONE; +FLU VACC QS2021-22(65YR UP)/PF 240 MCG/0.7 ML SYRINGE IM ONE; -Lidocaine 1% PF 5 ML VIAL ONE; -Sodium Bicarbonate 2.5 MEQ/5 ML VIAL ONE
[2021-08-19] MEDS ORDERED: Sodium Bicarbonate 2.5 MEQ/5 ML VIAL ONE (07:30)
[2021-08-19] MEDS ORDERED: Albumin 25% 200 ML ONE (07:30)
[2021-08-19] MEDS ORDERED: Lidocaine 1% PF 5 ML VIAL ONE (07:31)
[2021-08-19] MEDS ORDERED: Sodium Chloride 0.9% 10 ML ONE (08:19)
[2021-08-19 08:27] VITALS: BP 112/65; TEMP 97.8
== END 2021-08-19 09:35 | disposition home or self-care (01) ==
LOC: ULT 07:24
PROVIDERS: ATTEND Internal Medicine Gastroenterology
PROC: 0W9G3ZZ Drainage of Peritoneal Cavity, Percutaneous Approach (ICD-10-PCS; principal; 2021-08-19)
DX: K74.60 Unspecified cirrhosis of liver (principal); R18.8 Other ascites; Z23 Encounter for immunization; Z88.6 Allergy status to analgesic agent; Z88.8 Allergy status to other drugs, medicaments and biological substances; Z91.040 Latex allergy status; Z91.048 Other nonmedicinal substance allergy status
CPT/HCPCS: 49083; 90662; G0008; P9047; 90471

== ENCOUNTER 2021-08-26 07:24 | Day surgery (SDC) | payer MEDICARE ==
[2021-08-19 09:57] VITALS: BMI 26.1
[2021-08-26] MEDS ORDERED: Albumin 25% 200 ML ONE (07:29)
[2021-08-26] MEDS ORDERED: Sodium Bicarbonate 2.5 MEQ/5 ML VIAL ONE (07:29)
[2021-08-26] MEDS ORDERED: Lidocaine 1% PF 5 ML VIAL ONE (07:29)
[2021-08-26 07:52] LABS: #Eosinphils 0.2 thou/uL (0.0-0.7); #Lymphocytes 0.9 thou/uL (1.20-3.40); #Monocytes 0.4 thou/uL (0.11-0.59); %Basophils 0.7 % (0.0-1.0); %Eosinophils 3.6 % (0.0-10.0); %Monocytes 8.3 % (0.0-10.0); %Neutrophils 66.5 % (42.0-75.0); Hemoglobin 12.7 g/dL (12.0-16.0); Mean Corpuscular HGB CONC 32.6 g/dL (32.0-36.0); Mean Corpuscular Hemoglobin 30.8 pg (27.0-31.0); Mean Corpuscular Volume 94.5 fL (78.0-98.0); Mean Platelet Volume 10.3 fL (7.4-10.4); Platelet Count 118 thou/uL (130-400); Red Blood Cell (RBC) Count 4.11 mill/uL (4.20-5.40); White Blood Cell (WBC) Count 4.5 thou/uL (4.8-10.8)
[2021-08-26 07:57] LABS: INR-International Normal Ratio 1.1; Prothrombin Time 14.7 sec (12.0-14.7)
[2021-08-26 08:04] LABS: Anion Gap 11 mmol/L (10-20); BUN (Urea Nitrogen) 31 mg/dL (9.8-20.1); Calc. Creatinine Clearance 36 mL/min (70-130); Calcium 9.8 mg/dL (7.8-10.44); Carbon Dioxide 25 mmol/L (23-31); Chloride 108 mmol/L (98-107); Glucose 135 mg/dL (83-110); Potassium 4.1 mmol/L (3.5-5.1); Sodium 140 mmol/L (136-145)
[2021-08-26 08:15] LABS: PTT 42.3 sec (22.9-36.1)
[2021-08-26 09:08] VITALS: TEMP 98
[2021-08-26 09:10] VITALS: BP 105/64
== END 2021-08-26 09:00 | disposition home or self-care (01) ==
LOC: ULT 07:24
PROVIDERS: ATTEND Internal Medicine Gastroenterology
PROC: 0W9G3ZZ Drainage of Peritoneal Cavity, Percutaneous Approach (ICD-10-PCS; principal; 2021-08-26)
DX: K74.60 Unspecified cirrhosis of liver (principal); R18.8 Other ascites; Z88.6 Allergy status to analgesic agent; Z88.8 Allergy status to other drugs, medicaments and biological substances; Z91.040 Latex allergy status; Z91.048 Other nonmedicinal substance allergy status
CPT/HCPCS: 49083; 80048; 85025; 85610; 85730; P9047

== ENCOUNTER 2021-09-02 07:33 | Day surgery (SDC) | payer MEDICARE ==
[2021-09-02] MEDS ORDERED: Lidocaine 1% PF 5 ML VIAL ONE (07:40)
[2021-09-02] MEDS ORDERED: Sodium Bicarbonate 2.5 MEQ/5 ML VIAL ONE (07:40)
[2021-09-02] MEDS ORDERED: Albumin 25% 200 ML ONE (07:40)
[2021-09-02] MEDS ORDERED: Albumin 25% 25 GM/100 ML BOT FS SCH (08:15)
[2021-09-02 09:17] VITALS: TEMP 97.2
[2021-09-02 09:49] VITALS: BP 114/77
== END 2021-09-02 09:00 | disposition home or self-care (01) ==
LOC: ULT 07:33
PROVIDERS: ATTEND Internal Medicine Gastroenterology
PROC: 0W9G3ZZ Drainage of Peritoneal Cavity, Percutaneous Approach (ICD-10-PCS; principal; 2021-09-02)
DX: K74.60 Unspecified cirrhosis of liver (principal); R18.8 Other ascites; Z79.84 Long term (current) use of oral hypoglycemic drugs; Z79.899 Other long term (current) drug therapy; Z88.6 Allergy status to analgesic agent; Z88.8 Allergy status to other drugs, medicaments and biological substances; Z91.040 Latex allergy status; Z91.048 Other nonmedicinal substance allergy status
CPT/HCPCS: 49083; P9047

== ENCOUNTER 2021-09-09 07:23 | Day surgery (SDC) | payer MEDICARE ==
[2021-09-04 10:33] VITALS: BMI 26.1
[2021-09-09] MEDS ORDERED: Sodium Chloride 0.9% 10 ML ONE (07:45)
[2021-09-09] MEDS ORDERED: Sodium Bicarbonate 2.5 MEQ/5 ML VIAL ONE (07:45)
[2021-09-09] MEDS ORDERED: Lidocaine 1% PF 5 ML VIAL ONE (07:45)
[2021-09-09] MEDS ORDERED: Albumin 25% 200 ML ONE (09:06)
== END 2021-09-09 09:00 | disposition home or self-care (01) ==
LOC: ULT 07:23
PROVIDERS: ATTEND Internal Medicine Gastroenterology
PROC: 0W9G3ZZ Drainage of Peritoneal Cavity, Percutaneous Approach (ICD-10-PCS; principal; 2021-09-09)
DX: K74.60 Unspecified cirrhosis of liver (principal); R18.8 Other ascites; Z79.84 Long term (current) use of oral hypoglycemic drugs; Z79.899 Other long term (current) drug therapy; Z88.6 Allergy status to analgesic agent; Z88.8 Allergy status to other drugs, medicaments and biological substances; Z91.040 Latex allergy status
CPT/HCPCS: 49083; P9047

== ENCOUNTER 2021-09-16 07:23 | Day surgery (SDC) | payer MEDICARE ==
[2021-09-15 15:05] VITALS: BMI 26.1
[2021-09-16] MEDS ORDERED: Sodium Bicarbonate 2.5 MEQ/5 ML VIAL ONE (07:51)
[2021-09-16] MEDS ORDERED: Albumin 25% 200 ML ONE (07:51)
[2021-09-16 14:11] VITALS: BP 112/86; TEMP 98
[2021-09-16] MEDS ORDERED: FLU VACC QS2021-22(65YR UP)/PF 240 MCG/0.7 ML SYRINGE IM ONE (15:45)
== END 2021-09-16 09:05 | disposition home or self-care (01) ==
LOC: ULT 07:23
PROVIDERS: ATTEND Internal Medicine Gastroenterology
PROC: 0W9G3ZZ Drainage of Peritoneal Cavity, Percutaneous Approach (ICD-10-PCS; principal; 2021-09-16)
DX: K74.60 Unspecified cirrhosis of liver (principal); R18.8 Other ascites; Z23 Encounter for immunization; Z79.84 Long term (current) use of oral hypoglycemic drugs; Z79.899 Other long term (current) drug therapy; Z88.6 Allergy status to analgesic agent; Z88.8 Allergy status to other drugs, medicaments and biological substances; Z91.040 Latex allergy status; Z91.048 Other nonmedicinal substance allergy status
CPT/HCPCS: 49083; 90662; G0008; P9047; 90471

== ENCOUNTER 2021-09-23 07:25 | Day surgery (SDC) | payer MEDICARE ==
[2021-09-22 15:05] VITALS: BMI 26.1
[2021-09-23] MEDS ORDERED: Sodium Bicarbonate 2.5 MEQ/5 ML VIAL ONE (07:39)
[2021-09-23] MEDS ORDERED: Albumin 25% 200 ML ONE (07:39)
[2021-09-23 09:48] VITALS: BP 125/55; TEMP 97.5
== END 2021-09-23 09:20 | disposition home or self-care (01) ==
LOC: ULT 07:25
PROVIDERS: ATTEND Internal Medicine Gastroenterology
PROC: 0W9G3ZZ Drainage of Peritoneal Cavity, Percutaneous Approach (ICD-10-PCS; principal; 2021-09-23)
DX: K74.60 Unspecified cirrhosis of liver (principal); R18.8 Other ascites; Z79.84 Long term (current) use of oral hypoglycemic drugs; Z79.899 Other long term (current) drug therapy; Z88.6 Allergy status to analgesic agent; Z88.8 Allergy status to other drugs, medicaments and biological substances; Z91.040 Latex allergy status; Z91.048 Other nonmedicinal substance allergy status
CPT/HCPCS: 49083; P9047

== ENCOUNTER → 2021-09-30 | Day surgery (SDC) | payer MEDICARE ==
[2021-09-29 09:27] VITALS: BMI 26.1
[~2021-09-30] MED LIST changes: +Albumin 25% 200 ML ONE; +Albumin 25% 25 GM/100 ML BOT FS SCH; +Sodium Bicarbonate 2.5 MEQ/5 ML VIAL ONE
[2021-09-30 07:42] LABS: #Eosinphils 0.1 thou/uL (0.0-0.7); #Lymphocytes 0.8 thou/uL (1.20-3.40); #Monocytes 0.4 thou/uL (0.11-0.59); #Neutrophils 4.2 thou/uL (1.40-6.50); %Basophils 0.6 % (0.0-1.0); %Eosinophils 1.5 % (0.0-10.0); %Monocytes 7.8 % (0.0-10.0); %Neutrophils 75.1 % (42.0-75.0); Hemoglobin 12.7 g/dL (12.0-16.0); Mean Corpuscular HGB CONC 32.8 g/dL (32.0-36.0); Mean Corpuscular Hemoglobin 30.8 pg (27.0-31.0); Mean Platelet Volume 10.4 fL (7.4-10.4); Platelet Count 129 thou/uL (130-400); RBC Distribution Width 12.4 % (11.5-14.5); Red Blood Cell (RBC) Count 4.11 mill/uL (4.20-5.40); White Blood Cell (WBC) Count 5.6 thou/uL (4.8-10.8)
[2021-09-30 08:07] LABS: Anion Gap 17 mmol/L (10-20); BUN (Urea Nitrogen) 37 mg/dL (9.8-20.1); Calc. Creatinine Clearance 32 mL/min (70-130); Carbon Dioxide 23 mmol/L (23-31); Chloride 103 mmol/L (98-107); Glucose 191 mg/dL (83-110); Sodium 139 mmol/L (136-145)
[2021-09-30 08:31] LABS: INR-International Normal Ratio 1.1; PTT 40.3 sec (22.9-36.1); Prothrombin Time 14.2 sec (12.0-14.7)
[2021-09-30 09:56] VITALS: BP 102/71
== END ==
LOC: ULT 07:21
PROVIDERS: ATTEND Internal Medicine Gastroenterology
PROC: 0W9G3ZZ Drainage of Peritoneal Cavity, Percutaneous Approach (ICD-10-PCS; principal; 2021-09-30)
DX: K74.60 Unspecified cirrhosis of liver (principal); R18.8 Other ascites; Z79.84 Long term (current) use of oral hypoglycemic drugs; Z79.899 Other long term (current) drug therapy; Z88.6 Allergy status to analgesic agent; Z88.8 Allergy status to other drugs, medicaments and biological substances; Z91.040 Latex allergy status; Z91.048 Other nonmedicinal substance allergy status
CPT/HCPCS: 49083; 80048; 85025; 85610; 85730; P9047

== ENCOUNTER 2021-10-07 07:18 | Day surgery (SDC) | payer MEDICARE ==
[2021-10-03 12:06] VITALS: BMI 26.1
[2021-10-07] MEDS ORDERED: Sodium Bicarbonate 2.5 MEQ/5 ML VIAL ONE (07:44)
[2021-10-07] MEDS ORDERED: Albumin 25% 200 ML ONE (07:44)
[2021-10-07] MEDS ORDERED: Albumin 25% 25 GM/100 ML BOT IVPB SCH (08:15)
[2021-10-07 09:26] VITALS: BP 120/56
== END 2021-10-07 09:10 | disposition home or self-care (01) ==
LOC: ULT 07:18
PROVIDERS: ATTEND Internal Medicine Gastroenterology
PROC: 0W9G3ZZ Drainage of Peritoneal Cavity, Percutaneous Approach (ICD-10-PCS; principal; 2021-10-07)
DX: K74.60 Unspecified cirrhosis of liver (principal); R18.8 Other ascites; Z79.84 Long term (current) use of oral hypoglycemic drugs; Z79.899 Other long term (current) drug therapy; Z88.6 Allergy status to analgesic agent; Z88.8 Allergy status to other drugs, medicaments and biological substances; Z91.040 Latex allergy status; Z91.048 Other nonmedicinal substance allergy status
CPT/HCPCS: 49083; P9047

== ENCOUNTER 2021-10-14 07:24 | Day surgery (SDC) | payer MEDICARE ==
[2021-10-10 11:42] VITALS: BMI 259.1
[2021-10-14] MEDS ORDERED: Sodium Bicarbonate 2.5 MEQ/5 ML VIAL ONE (07:41)
[2021-10-14] MEDS ORDERED: Lidocaine 1% PF 5 ML VIAL ONE (07:41)
[2021-10-14] MEDS ORDERED: Sodium Chloride 0.9% 10 ML ONE (07:41)
[2021-10-14] MEDS ORDERED: Albumin 25% 200 ML ONE (07:41)
== END 2021-10-14 09:15 | disposition home or self-care (01) ==
LOC: ULT 07:24
PROVIDERS: ATTEND Internal Medicine Gastroenterology
PROC: 0W9G3ZZ Drainage of Peritoneal Cavity, Percutaneous Approach (ICD-10-PCS; principal; 2021-10-14)
DX: K74.60 Unspecified cirrhosis of liver (principal); R18.8 Other ascites; Z88.6 Allergy status to analgesic agent; Z88.8 Allergy status to other drugs, medicaments and biological substances; Z91.040 Latex allergy status
CPT/HCPCS: 49083; P9047

== ENCOUNTER 2021-10-28 07:22 | Day surgery (SDC) | payer MEDICARE ==
[2021-10-27 15:51] VITALS: BMI 26.1
[~2021-10-28 07:22] MED LIST changes: -Albumin 25% 200 ML ONE; -Albumin 25% 25 GM/100 ML BOT FS SCH; -Sodium Bicarbonate 2.5 MEQ/5 ML VIAL ONE
[2021-10-28] MEDS ORDERED: Lidocaine 1% PF 5 ML VIAL ONE (07:36)
[2021-10-28] MEDS ORDERED: Sodium Bicarbonate 2.5 MEQ/5 ML VIAL ONE (07:36)
[2021-10-28] MEDS ORDERED: Albumin 25% 200 ML ONE (07:36)
[2021-10-28] MEDS ORDERED: Albumin 25% 25 GM/100 ML BOT IVPB SCH (08:00)
[2021-10-28] MEDS ORDERED: Sodium Chloride 0.9% 10 ML ONE (08:01)
[2021-10-28 08:50] VITALS: BP 113/50
[2021-10-28] MEDS ORDERED: Magnevist 469MG/ML 20 ML VIAL ONE (12:32)
== END 2021-10-28 10:05 | disposition home or self-care (01) ==
LOC: ULT 07:22
PROVIDERS: ATTEND Internal Medicine Gastroenterology
PROC: 0W9G3ZZ Drainage of Peritoneal Cavity, Percutaneous Approach (ICD-10-PCS; principal; 2021-10-28)
DX: K74.60 Unspecified cirrhosis of liver (principal); R18.8 Other ascites; K76.6 Portal hypertension; K55.20 Angiodysplasia of colon without hemorrhage; Z23 Encounter for immunization; Z79.84 Long term (current) use of oral hypoglycemic drugs; Z79.899 Other long term (current) drug therapy; Z88.6 Allergy status to analgesic agent; Z88.8 Allergy status to other drugs, medicaments and biological substances; Z91.040 Latex allergy status; Z91.048 Other nonmedicinal substance allergy status
CPT/HCPCS: 49083; 74183; 90662; G0008; P9047; 90471; A9579

== ENCOUNTER 2021-11-11 07:34 | Day surgery (SDC) | payer MEDICARE ==
[2021-11-11] MEDS ORDERED: Sodium Bicarbonate 2.5 MEQ/5 ML VIAL ONE (08:08)
[2021-11-11] MEDS ORDERED: Albumin 25% 200 ML ONE (08:08)
[2021-11-11] MEDS ORDERED: Lidocaine 1% PF 5 ML VIAL ONE (08:08)
[2021-11-11] MEDS ORDERED: Albumin 25% 25 GM/100 ML BOT IVPB SCH (08:30)
[2021-11-11 08:46] VITALS: BP 114/60
== END 2021-11-11 09:10 | disposition home or self-care (01) ==
LOC: ULT 07:34
PROVIDERS: ATTEND Internal Medicine Gastroenterology
PROC: 0W9G3ZZ Drainage of Peritoneal Cavity, Percutaneous Approach (ICD-10-PCS; principal; 2021-11-11)
DX: K74.60 Unspecified cirrhosis of liver (principal); R18.8 Other ascites; Z88.6 Allergy status to analgesic agent; Z88.8 Allergy status to other drugs, medicaments and biological substances; Z91.040 Latex allergy status; Z91.048 Other nonmedicinal substance allergy status
CPT/HCPCS: 49083; P9047

== ENCOUNTER 2021-12-09 07:28 | Day surgery (SDC) | payer MEDICARE ==
[2021-12-08 15:50] VITALS: BMI 26.1
[2021-12-09] MEDS ORDERED: Albumin 25% 200 ML ONE (07:34)
[2021-12-09] MEDS ORDERED: Sodium Bicarbonate 2.5 MEQ/5 ML VIAL ONE (07:34)
[2021-12-09] MEDS ORDERED: Lidocaine 1% PF 5 ML VIAL ONE (07:34)
[2021-12-09 09:30] VITALS: BP 114/61; TEMP 98.2
== END 2021-12-09 09:20 | disposition home or self-care (01) ==
LOC: ULT 07:28
PROVIDERS: ATTEND Internal Medicine Gastroenterology
PROC: 0W9G3ZZ Drainage of Peritoneal Cavity, Percutaneous Approach (ICD-10-PCS; principal; 2021-12-09)
DX: K74.60 Unspecified cirrhosis of liver (principal); R18.8 Other ascites; Z88.6 Allergy status to analgesic agent; Z88.8 Allergy status to other drugs, medicaments and biological substances; Z91.040 Latex allergy status; Z91.048 Other nonmedicinal substance allergy status
CPT/HCPCS: 49083; P9047

== ENCOUNTER 2021-12-30 07:42 | Day surgery (SDC) | payer MEDICARE ==
[2021-12-29 06:56] VITALS: BMI 26.1
[~2021-12-30 07:42] MED LIST changes: +Albumin 25% 200 ML ONE; -FLU VACC QS2021-22(65YR UP)/PF 240 MCG/0.7 ML SYRINGE IM ONE; +Lidocaine 1% PF 5 ML VIAL ONE; +Sodium Bicarbonate 2.5 MEQ/5 ML VIAL ONE
[2021-12-30 08:22] VITALS: BP 113/57
== END 2021-12-30 08:50 | disposition home or self-care (01) ==
LOC: ULT 07:42
PROVIDERS: ATTEND Internal Medicine Gastroenterology
PROC: 0W9G3ZZ Drainage of Peritoneal Cavity, Percutaneous Approach (ICD-10-PCS; principal; 2021-12-30)
DX: K74.60 Unspecified cirrhosis of liver (principal); R18.8 Other ascites; E11.9 Type 2 diabetes mellitus without complications; E78.00 Pure hypercholesterolemia, unspecified; I10 Essential (primary) hypertension; L40.50 Arthropathic psoriasis, unspecified; Z79.84 Long term (current) use of oral hypoglycemic drugs; Z79.899 Other long term (current) drug therapy; Z88.6 Allergy status to analgesic agent; Z88.8 Allergy status to other drugs, medicaments and biological substances; Z91.040 Latex allergy status; Z91.048 Other nonmedicinal substance allergy status
CPT/HCPCS: 49083; P9047

== ENCOUNTER 2022-01-06 07:21 | Day surgery (SDC) | payer MEDICARE ==
[2022-01-02 12:54] VITALS: BMI 26.1
[2022-01-06] MEDS ORDERED: Albumin 25% 200 ML ONE (07:28)
[2022-01-06] MEDS ORDERED: Lidocaine 1% PF 5 ML VIAL ONE (07:28)
[2022-01-06] MEDS ORDERED: Sodium Bicarbonate 2.5 MEQ/5 ML VIAL ONE (07:29)
[2022-01-06 09:23] VITALS: BP 118/63
== END 2022-01-06 08:54 | disposition home or self-care (01) ==
LOC: ULT 07:21
PROVIDERS: ATTEND Internal Medicine Gastroenterology
PROC: 0W9G3ZZ Drainage of Peritoneal Cavity, Percutaneous Approach (ICD-10-PCS; principal; 2022-01-06)
DX: K74.60 Unspecified cirrhosis of liver (principal); R18.8 Other ascites; E11.9 Type 2 diabetes mellitus without complications; I10 Essential (primary) hypertension; Z79.84 Long term (current) use of oral hypoglycemic drugs; Z79.899 Other long term (current) drug therapy; Z88.6 Allergy status to analgesic agent; Z88.8 Allergy status to other drugs, medicaments and biological substances; Z91.040 Latex allergy status; Z91.048 Other nonmedicinal substance allergy status
CPT/HCPCS: 49083; P9047

== ENCOUNTER 2022-01-13 07:40 | Day surgery (SDC) | payer MEDICARE ==
[2022-01-12 12:53] VITALS: BMI 26.1
[2022-01-13 07:40] LABS: #Eosinphils 0.1 thou/uL (0.0-0.7); #Lymphocytes 0.9 thou/uL (1.20-3.40); #Monocytes 0.4 thou/uL (0.11-0.59); #Neutrophils 4.1 thou/uL (1.40-6.50); %Basophils 0.6 % (0.0-1.0); %Eosinophils 1.6 % (0.0-10.0); %Lymphocytes 16.2 % (21.0-51.0); %Monocytes 7.6 % (0.0-10.0); Hemoglobin 13.1 g/dL (12.0-16.0); Mean Corpuscular HGB CONC 32.2 g/dL (32.0-36.0); Mean Corpuscular Hemoglobin 30.6 pg (27.0-31.0); Mean Corpuscular Volume 94.8 fL (78.0-98.0); Platelet Count 143 thou/uL (130-400); RBC Distribution Width 12.5 % (11.5-14.5); Red Blood Cell (RBC) Count 4.29 mill/uL (4.20-5.40); White Blood Cell (WBC) Count 5.5 thou/uL (4.8-10.8)
[2022-01-13] MEDS ORDERED: Albumin 25% 200 ML ONE (07:48)
[2022-01-13] MEDS ORDERED: Lidocaine 1% PF 5 ML VIAL ONE (07:48)
[2022-01-13] MEDS ORDERED: Sodium Bicarbonate 2.5 MEQ/5 ML VIAL ONE (07:48)
[2022-01-13 07:54] LABS: INR-International Normal Ratio 1.1; Prothrombin Time 14.5 sec (12.0-14.7)
[2022-01-13 07:55] LABS: PTT 41.7 sec (22.9-36.1)
[2022-01-13 08:01] LABS: ALT (SGPT) 31 U/L (8-55); AST (SGOT) 39 U/L (5-34); Albumin 3.8 g/dL (3.4-4.8); Alkaline Phosphatase 133 U/L (40-110); Anion Gap 15 mmol/L (10-20); BUN (Urea Nitrogen) 28 mg/dL (9.8-20.1); Calc. Creatinine Clearance 31 mL/min (70-130); Calcium 9.6 mg/dL (7.8-10.44); Carbon Dioxide 26 mmol/L (23-31); Chloride 103 mmol/L (98-107); Globulin 3.3 g/dL (2.4-3.5); Glucose 183 mg/dL (83-110); Potassium 4.2 mmol/L (3.5-5.1); Protein, Total 7.1 g/dL (5.8-8.1); Sodium 140 mmol/L (136-145)
[2022-01-13 09:31] VITALS: BP 115/68; TEMP 98
== END 2022-01-13 09:28 | disposition home or self-care (01) ==
LOC: ULT 07:40
PROVIDERS: ATTEND Internal Medicine Gastroenterology
PROC: 0W9G3ZZ Drainage of Peritoneal Cavity, Percutaneous Approach (ICD-10-PCS; principal; 2022-01-13)
DX: K74.60 Unspecified cirrhosis of liver (principal); R18.8 Other ascites; Z88.6 Allergy status to analgesic agent; Z88.8 Allergy status to other drugs, medicaments and biological substances; Z91.040 Latex allergy status; Z91.048 Other nonmedicinal substance allergy status
CPT/HCPCS: 49083; 80053; 85025; 85610; 85730; P9047; 36415

== ENCOUNTER 2022-01-20 07:30 | Day surgery (SDC) | payer MEDICARE ==
[2022-01-16 10:13] VITALS: BMI 26.1
[2022-01-20] MEDS ORDERED: Albumin 25% 200 ML ONE (08:16)
[2022-01-20] MEDS ORDERED: Lidocaine 1% PF 5 ML VIAL ONE (08:16)
[2022-01-20] MEDS ORDERED: Sodium Bicarbonate 2.5 MEQ/5 ML VIAL ONE (08:16)
[2022-01-20] MEDS ORDERED: Albumin 25% 25 GM/100 ML BOT IVPB SCH (08:30)
[2022-01-20 09:05] VITALS: BP 119/65
== END 2022-01-20 09:45 | disposition home or self-care (01) ==
LOC: ULT 07:30
PROVIDERS: ATTEND Internal Medicine Gastroenterology
PROC: 0W9G3ZZ Drainage of Peritoneal Cavity, Percutaneous Approach (ICD-10-PCS; principal; 2022-01-20)
DX: K74.60 Unspecified cirrhosis of liver (principal); R18.8 Other ascites; E11.9 Type 2 diabetes mellitus without complications; I10 Essential (primary) hypertension; Z79.84 Long term (current) use of oral hypoglycemic drugs; Z79.899 Other long term (current) drug therapy; Z88.6 Allergy status to analgesic agent; Z88.8 Allergy status to other drugs, medicaments and biological substances; Z91.040 Latex allergy status; Z91.048 Other nonmedicinal substance allergy status
CPT/HCPCS: 49083; P9047

== ENCOUNTER 2022-02-03 07:22 | Day surgery (SDC) | payer MEDICARE ==
[2022-01-30 08:00] VITALS: BMI 26.1
[2022-02-03] MEDS ORDERED: Lidocaine 1% PF 5 ML VIAL ONE (07:28)
[2022-02-03] MEDS ORDERED: Sodium Bicarbonate 2.5 MEQ/5 ML VIAL ONE (07:28)
[2022-02-03] MEDS ORDERED: Albumin 25% 200 ML ONE (07:28)
[2022-02-03 12:53] VITALS: BP 131/61; TEMP 97.9
== END 2022-02-03 09:40 | disposition home or self-care (01) ==
LOC: ULT 07:22
PROVIDERS: ATTEND Internal Medicine Gastroenterology
PROC: 0W9G3ZZ Drainage of Peritoneal Cavity, Percutaneous Approach (ICD-10-PCS; principal; 2022-02-03)
DX: K74.60 Unspecified cirrhosis of liver (principal); R18.8 Other ascites; L40.50 Arthropathic psoriasis, unspecified; E11.9 Type 2 diabetes mellitus without complications; I10 Essential (primary) hypertension; E78.5 Hyperlipidemia, unspecified; Z79.84 Long term (current) use of oral hypoglycemic drugs; Z79.899 Other long term (current) drug therapy; Z88.6 Allergy status to analgesic agent; Z88.8 Allergy status to other drugs, medicaments and biological substances; Z91.040 Latex allergy status; Z91.048 Other nonmedicinal substance allergy status
CPT/HCPCS: 49083; P9047

== ENCOUNTER 2022-02-17 07:41 | Day surgery (SDC) | payer MEDICARE ==
[2022-02-17 07:51] LABS: #Eosinphils 0.1 thou/uL (0.0-0.7); #Lymphocytes 0.7 thou/uL (1.20-3.40); #Monocytes 0.4 thou/uL (0.11-0.59); #Neutrophils 4.2 thou/uL (1.40-6.50); %Basophils 0.6 % (0.0-1.0); %Eosinophils 1.3 % (0.0-10.0); %Lymphocytes 12.6 % (21.0-51.0); %Monocytes 7.9 % (0.0-10.0); %Neutrophils 77.6 % (42.0-75.0); Hemoglobin 12.4 g/dL (12.0-16.0); Mean Corpuscular HGB CONC 32.6 g/dL (32.0-36.0); Mean Corpuscular Hemoglobin 30.8 pg (27.0-31.0); Mean Corpuscular Volume 94.2 fL (78.0-98.0); Mean Platelet Volume 10.2 fL (7.4-10.4); Platelet Count 133 thou/uL (130-400); RBC Distribution Width 12.5 % (11.5-14.5); Red Blood Cell (RBC) Count 4.04 mill/uL (4.20-5.40); White Blood Cell (WBC) Count 5.5 thou/uL (4.8-10.8)
[2022-02-17] MEDS ORDERED: Lidocaine 1% PF 5 ML VIAL ONE (08:08)
[2022-02-17] MEDS ORDERED: Sodium Bicarbonate 2.5 MEQ/5 ML VIAL ONE (08:08)
[2022-02-17] MEDS ORDERED: Albumin 25% 200 ML ONE (08:08)
[2022-02-17 08:12] LABS: Anion Gap 16 mmol/L (10-20); BUN (Urea Nitrogen) 37 mg/dL (9.8-20.1); Calc. Creatinine Clearance 34 mL/min (70-130); Calcium 9.8 mg/dL (7.8-10.44); Carbon Dioxide 21 mmol/L (23-31); Chloride 105 mmol/L (98-107); Glucose 182 mg/dL (83-110); Sodium 138 mmol/L (136-145)
[2022-02-17 08:21] LABS: INR-International Normal Ratio 1.2; Prothrombin Time 15.2 sec (12.0-14.7)
[2022-02-17 08:25] LABS: PTT 41.5 sec (22.9-36.1)
[2022-02-17 09:44] VITALS: BP 117/60; TEMP 98.3; BMI 26.1
== END 2022-02-17 09:30 | disposition home or self-care (01) ==
LOC: ULT 07:41
PROVIDERS: ATTEND Internal Medicine Gastroenterology
PROC: 0W9G3ZZ Drainage of Peritoneal Cavity, Percutaneous Approach (ICD-10-PCS; principal; 2022-02-17)
DX: K74.60 Unspecified cirrhosis of liver (principal); R18.8 Other ascites; K72.90 Hepatic failure, unspecified without coma; D64.9 Anemia, unspecified; E11.9 Type 2 diabetes mellitus without complications; E78.00 Pure hypercholesterolemia, unspecified; I10 Essential (primary) hypertension; Z79.899 Other long term (current) drug therapy; Z88.6 Allergy status to analgesic agent; Z88.8 Allergy status to other drugs, medicaments and biological substances; Z91.040 Latex allergy status
CPT/HCPCS: 49083; 80048; 85025; 85610; 85730; P9047

== ENCOUNTER 2022-02-24 07:28 | Day surgery (SDC) | payer MEDICARE ==
[2022-02-23 16:22] VITALS: BMI 26.1
[2022-02-24] MEDS ORDERED: Albumin 25% 200 ML ONE (07:34)
[2022-02-24] MEDS ORDERED: Sodium Bicarbonate 2.5 MEQ/5 ML VIAL ONE (07:34)
[2022-02-24] MEDS ORDERED: Lidocaine 1% PF 5 ML VIAL ONE (07:34)
== END 2022-02-24 09:10 | disposition home or self-care (01) ==
LOC: ULT 07:28
PROVIDERS: ATTEND Internal Medicine Gastroenterology
PROC: 0W9G3ZZ Drainage of Peritoneal Cavity, Percutaneous Approach (ICD-10-PCS; principal; 2022-02-24)
DX: K74.60 Unspecified cirrhosis of liver (principal); R18.8 Other ascites; Z88.6 Allergy status to analgesic agent; Z88.8 Allergy status to other drugs, medicaments and biological substances; Z91.040 Latex allergy status; Z91.048 Other nonmedicinal substance allergy status
CPT/HCPCS: 49083; P9047

== ENCOUNTER 2022-03-03 07:29 | Day surgery (SDC) | payer MEDICARE ==
[2022-03-02 14:25] VITALS: BMI 26.1
[2022-03-03] MEDS ORDERED: Sodium Bicarbonate 2.5 MEQ/5 ML VIAL ONE (08:03)
[2022-03-03] MEDS ORDERED: Lidocaine 1% PF 5 ML VIAL ONE (08:03)
[2022-03-03] MEDS ORDERED: Albumin 25% 200 ML ONE (08:03)
[2022-03-03] MEDS ORDERED: Albumin 25% 25 GM/100 ML BOT IVPB SCH (08:15)
[2022-03-03 09:39] VITALS: BP 130/63
== END 2022-03-03 09:45 | disposition home or self-care (01) ==
LOC: ULT 07:29
PROVIDERS: ATTEND Internal Medicine Gastroenterology
PROC: 0W9G3ZZ Drainage of Peritoneal Cavity, Percutaneous Approach (ICD-10-PCS; principal; 2022-03-03)
DX: K74.60 Unspecified cirrhosis of liver (principal); R18.8 Other ascites; K72.90 Hepatic failure, unspecified without coma; E11.9 Type 2 diabetes mellitus without complications; E78.00 Pure hypercholesterolemia, unspecified; I10 Essential (primary) hypertension; L40.50 Arthropathic psoriasis, unspecified; Z79.84 Long term (current) use of oral hypoglycemic drugs; Z79.899 Other long term (current) drug therapy; Z88.6 Allergy status to analgesic agent; Z88.8 Allergy status to other drugs, medicaments and biological substances; Z91.040 Latex allergy status; Z91.048 Other nonmedicinal substance allergy status
CPT/HCPCS: 49083; P9047

== ENCOUNTER 2022-03-17 07:28 | Day surgery (SDC) | payer MEDICARE ==
[2022-03-13 11:25] VITALS: BMI 26.6
[2022-03-17] MEDS ORDERED: Sodium Bicarbonate 2.5 MEQ/5 ML VIAL ONE (07:50)
[2022-03-17] MEDS ORDERED: Albumin 25% 200 ML ONE (07:50)
[2022-03-17] MEDS ORDERED: Lidocaine 1% PF 5 ML VIAL ONE (07:50)
[2022-03-17] MEDS ORDERED: Albumin 25% 25 GM/100 ML BOT IVPB ONE (10:00)
[2022-03-17 10:04] VITALS: BP 126/64
== END 2022-03-17 09:17 | disposition home or self-care (01) ==
LOC: ULT 07:28
PROVIDERS: ATTEND Internal Medicine Gastroenterology
PROC: 0W9G3ZZ Drainage of Peritoneal Cavity, Percutaneous Approach (ICD-10-PCS; principal; 2022-03-17)
DX: K74.60 Unspecified cirrhosis of liver (principal); R18.8 Other ascites; E11.9 Type 2 diabetes mellitus without complications; Z79.84 Long term (current) use of oral hypoglycemic drugs; Z79.899 Other long term (current) drug therapy; Z88.6 Allergy status to analgesic agent; Z88.8 Allergy status to other drugs, medicaments and biological substances; Z91.040 Latex allergy status; Z91.048 Other nonmedicinal substance allergy status
CPT/HCPCS: 49083; P9047

== ENCOUNTER 2022-03-31 07:22 | Day surgery (SDC) | payer MEDICARE ==
[2022-03-30 13:09] VITALS: BMI 27.2
[2022-03-31 07:51] LABS: #Eosinphils 0.1 thou/uL (0.0-0.7); #Lymphocytes 0.7 thou/uL (1.20-3.40); #Monocytes 0.4 thou/uL (0.11-0.59); #Neutrophils 3.7 thou/uL (1.40-6.50); %Basophils 0.4 % (0.0-1.0); %Eosinophils 1.4 % (0.0-10.0); %Lymphocytes 14.4 % (21.0-51.0); %Monocytes 7.3 % (0.0-10.0); %Neutrophils 76.5 % (42.0-75.0); Hemoglobin 12.3 g/dL (12.0-16.0); Mean Corpuscular HGB CONC 31.5 g/dL (32.0-36.0); Mean Corpuscular Hemoglobin 29.4 pg (27.0-31.0); Mean Corpuscular Volume 93.5 fL (78.0-98.0); Mean Platelet Volume 10.7 fL (7.4-10.4); Platelet Count 133 thou/uL (130-400); RBC Distribution Width 12.3 % (11.5-14.5); Red Blood Cell (RBC) Count 4.16 mill/uL (4.20-5.40); White Blood Cell (WBC) Count 4.9 thou/uL (4.8-10.8)
[2022-03-31] MEDS ORDERED: Sodium Bicarbonate 2.5 MEQ/5 ML VIAL ONE (08:06)
[2022-03-31] MEDS ORDERED: Lidocaine 1% PF 5 ML VIAL ONE (08:06)
[2022-03-31] MEDS ORDERED: Albumin 25% 200 ML ONE (08:06)
[2022-03-31 08:08] LABS: INR-International Normal Ratio 1.1; PTT 42.5 sec (22.9-36.1); Prothrombin Time 14.3 sec (12.0-14.7)
[2022-03-31 08:11] LABS: Anion Gap 14 mmol/L (10-20); BUN (Urea Nitrogen) 28 mg/dL (9.8-20.1); Calc. Creatinine Clearance 40 mL/min (70-130); Calcium 9.5 mg/dL (7.8-10.44); Carbon Dioxide 25 mmol/L (23-31); Chloride 103 mmol/L (98-107); Estimated GFR 38; Glucose 203 mg/dL (83-110); Potassium 3.8 mmol/L (3.5-5.1); Sodium 138 mmol/L (136-145)
[2022-03-31 10:12] VITALS: BP 110/54; TEMP 98
== END 2022-03-31 09:45 | disposition home or self-care (01) ==
LOC: ULT 07:22
PROVIDERS: ATTEND Internal Medicine Gastroenterology
PROC: 0W9G3ZZ Drainage of Peritoneal Cavity, Percutaneous Approach (ICD-10-PCS; principal; 2022-03-31)
DX: K74.60 Unspecified cirrhosis of liver (principal); R18.8 Other ascites; E11.9 Type 2 diabetes mellitus without complications; E78.00 Pure hypercholesterolemia, unspecified; I10 Essential (primary) hypertension; L40.50 Arthropathic psoriasis, unspecified; K72.90 Hepatic failure, unspecified without coma; Z79.84 Long term (current) use of oral hypoglycemic drugs; Z79.899 Other long term (current) drug therapy; Z88.6 Allergy status to analgesic agent; Z88.8 Allergy status to other drugs, medicaments and biological substances; Z91.040 Latex allergy status; Z91.048 Other nonmedicinal substance allergy status
CPT/HCPCS: 49083; 80048; 85025; 85610; 85730; P9047; 36415

== ENCOUNTER → 2022-04-14 | Day surgery (SDC) | payer MEDICARE ==
[2022-04-13 09:30] VITALS: BMI 26.1
== END | disposition home or self-care (01) ==
LOC: ULT 07:26
PROVIDERS: ATTEND Internal Medicine Gastroenterology
PROC: 0W9G3ZZ Drainage of Peritoneal Cavity, Percutaneous Approach (ICD-10-PCS; principal; 2022-04-14)
DX: K74.60 Unspecified cirrhosis of liver (principal); R18.8 Other ascites; Z88.6 Allergy status to analgesic agent; Z88.8 Allergy status to other drugs, medicaments and biological substances; Z91.040 Latex allergy status; Z91.048 Other nonmedicinal substance allergy status
CPT/HCPCS: 49083; P9047

== ENCOUNTER 2022-04-28 07:41 | Day surgery (SDC) | payer MEDICARE ==
[2022-04-27 13:11] VITALS: BMI 26.1
[2022-04-28] MEDS ORDERED: Lidocaine 1% MPF 2 ML VIAL ONE (07:56)
[2022-04-28] MEDS ORDERED: Sodium Bicarbonate 2.5 MEQ/5 ML VIAL ONE (07:56)
[2022-04-28 08:00] LABS: #Eosinphils 0.1 thou/uL (0.0-0.7); #Lymphocytes 0.8 thou/uL (1.20-3.40); #Monocytes 0.5 thou/uL (0.11-0.59); %Basophils 0.4 % (0.0-1.0); %Eosinophils 0.8 % (0.0-10.0); %Lymphocytes 12.8 % (21.0-51.0); %Monocytes 8.4 % (0.0-10.0); %Neutrophils 77.7 % (42.0-75.0); Hemoglobin 12.4 g/dL (12.0-16.0); Mean Corpuscular HGB CONC 33.5 g/dL (32.0-36.0); Mean Corpuscular Volume 92.5 fL (78.0-98.0); Mean Platelet Volume 10.3 fL (7.4-10.4); Platelet Count 140 thou/uL (130-400); RBC Distribution Width 12.4 % (11.5-14.5); Red Blood Cell (RBC) Count 4.01 mill/uL (4.20-5.40); White Blood Cell (WBC) Count 6.4 thou/uL (4.8-10.8)
[2022-04-28 08:14] LABS: Prothrombin Time 13.7 sec (12.0-14.7)
[2022-04-28 08:15] LABS: PTT 42.5 sec (22.9-36.1)
[2022-04-28] MEDS ORDERED: Albumin 25% 100 ML ONE ×2 (08:21)
[2022-04-28 08:23] LABS: Anion Gap 17 mmol/L (10-20); BUN (Urea Nitrogen) 30 mg/dL (9.8-20.1); Calc. Creatinine Clearance 29 mL/min (70-130); Calcium 9.3 mg/dL (7.8-10.44); Carbon Dioxide 22 mmol/L (23-31); Chloride 103 mmol/L (98-107); Estimated GFR 30; Glucose 185 mg/dL (83-110); Potassium 4.2 mmol/L (3.5-5.1); Sodium 138 mmol/L (136-145)
[2022-04-28 10:07] VITALS: BP 109/70; TEMP 97.7
== END 2022-04-28 09:40 | disposition home or self-care (01) ==
LOC: ULT 07:41
PROVIDERS: ATTEND Internal Medicine Gastroenterology
PROC: 0W9G3ZZ Drainage of Peritoneal Cavity, Percutaneous Approach (ICD-10-PCS; principal; 2022-04-28)
DX: K74.60 Unspecified cirrhosis of liver (principal); R18.8 Other ascites; Z79.84 Long term (current) use of oral hypoglycemic drugs; Z79.899 Other long term (current) drug therapy; Z88.6 Allergy status to analgesic agent; Z88.8 Allergy status to other drugs, medicaments and biological substances; Z91.040 Latex allergy status; Z91.048 Other nonmedicinal substance allergy status
CPT/HCPCS: 49083; 80048; 85025; 85610; 85730; P9047

== ENCOUNTER 2022-05-12 07:38 | Day surgery (SDC) | payer MEDICARE ==
[2022-05-08 08:59] VITALS: BMI 24.5
[2022-05-12] MEDS ORDERED: Albumin 25% 200 ML ONE (07:44)
[2022-05-12] MEDS ORDERED: Sodium Bicarbonate 2.5 MEQ/5 ML VIAL ONE (07:44)
[2022-05-12] MEDS ORDERED: Lidocaine 1% MPF 2 ML VIAL ONE (07:44)
[2022-05-12 09:51] VITALS: BP 111/67; TEMP 98.1
== END 2022-05-12 09:30 | disposition home or self-care (01) ==
LOC: ULT 07:38
PROVIDERS: ATTEND Internal Medicine Gastroenterology
PROC: 0W9G3ZZ Drainage of Peritoneal Cavity, Percutaneous Approach (ICD-10-PCS; principal; 2022-05-12)
DX: K74.60 Unspecified cirrhosis of liver (principal); R18.8 Other ascites; Z79.84 Long term (current) use of oral hypoglycemic drugs; Z79.899 Other long term (current) drug therapy; Z88.6 Allergy status to analgesic agent; Z88.8 Allergy status to other drugs, medicaments and biological substances; Z91.040 Latex allergy status; Z91.048 Other nonmedicinal substance allergy status
CPT/HCPCS: 49083; P9047

== ENCOUNTER → 2022-05-26 | Day surgery (SDC) | payer MEDICARE ==
[2022-05-25 08:49] VITALS: BMI 26.1
[~2022-05-26] MED LIST changes: -Lidocaine 1% PF 5 ML VIAL ONE; +Lidocaine 2% PF 5 ML VIAL ONE
[2022-05-26 08:00] LABS: #Lymphocytes 0.7 thou/uL (1.20-3.40); #Monocytes 0.5 thou/uL (0.11-0.59); #Neutrophils 4.3 thou/uL (1.40-6.50); %Basophils 0.4 % (0.0-1.0); %Eosinophils 0.9 % (0.0-10.0); %Lymphocytes 13.2 % (21.0-51.0); %Monocytes 8.2 % (0.0-10.0); %Neutrophils 77.4 % (42.0-75.0); Hemoglobin 12.3 g/dL (12.0-16.0); Mean Corpuscular Hemoglobin 29.5 pg (27.0-31.0); Mean Corpuscular Volume 92.4 fL (78.0-98.0); Platelet Count 143 thou/uL (130-400); RBC Distribution Width 12.9 % (11.5-14.5); Red Blood Cell (RBC) Count 4.17 mill/uL (4.20-5.40); White Blood Cell (WBC) Count 5.6 thou/uL (4.8-10.8)
[2022-05-26 08:09] LABS: Anion Gap 20 mmol/L (10-20); BUN (Urea Nitrogen) 29 mg/dL (9.8-20.1); Calc. Creatinine Clearance 31 mL/min (70-130); Calcium 9.8 mg/dL (7.8-10.44); Carbon Dioxide 15 mmol/L (23-31); Chloride 105 mmol/L (98-107); Estimated GFR 33; Glucose 172 mg/dL (83-110); Potassium 4.5 mmol/L (3.5-5.1); Sodium 135 mmol/L (136-145)
[2022-05-26 08:43] LABS: INR-International Normal Ratio 1.1; Prothrombin Time 14.8 sec (12.0-14.7)
[2022-05-26 08:44] LABS: PTT 40.8 sec (22.9-36.1)
== END | disposition home or self-care (01) ==
LOC: ULT 07:57
PROVIDERS: ATTEND Internal Medicine Gastroenterology
PROC: 0W9G3ZZ Drainage of Peritoneal Cavity, Percutaneous Approach (ICD-10-PCS; principal; 2022-05-26)
DX: K74.60 Unspecified cirrhosis of liver (principal); R18.8 Other ascites; Z88.6 Allergy status to analgesic agent; Z88.8 Allergy status to other drugs, medicaments and biological substances; Z91.040 Latex allergy status; Z91.048 Other nonmedicinal substance allergy status
CPT/HCPCS: 49083; 80048; 85025; 85610; 85730; P9047; J2001

== ENCOUNTER 2022-06-09 07:31 | Day surgery (SDC) | payer MEDICARE ==
[2022-06-08 14:11] VITALS: BMI 26.1
[2022-06-09] MEDS ORDERED: Sodium Bicarbonate 2.5 MEQ/5 ML VIAL ONE (07:45)
[2022-06-09] MEDS ORDERED: Lidocaine 2% PF 5 ML VIAL ONE (07:45)
[2022-06-09] MEDS ORDERED: Albumin 25% 200 ML ONE (07:45)
== END 2022-06-09 09:30 | disposition home or self-care (01) ==
LOC: ULT 07:31
PROVIDERS: ATTEND Internal Medicine Gastroenterology
PROC: 0W9G3ZZ Drainage of Peritoneal Cavity, Percutaneous Approach (ICD-10-PCS; principal; 2022-06-09)
DX: K74.60 Unspecified cirrhosis of liver (principal); R18.8 Other ascites; Z88.6 Allergy status to analgesic agent; Z88.8 Allergy status to other drugs, medicaments and biological substances; Z91.040 Latex allergy status; Z91.048 Other nonmedicinal substance allergy status
CPT/HCPCS: 49083; P9047; J2001

== ENCOUNTER 2022-06-23 07:23 | Day surgery (SDC) | payer MEDICARE ==
[2022-06-22 13:48] VITALS: BMI 26.1
[2022-06-23 08:28] VITALS: BP 118/76; TEMP 98.2
[2022-06-23] MEDS ORDERED: Lidocaine 2% PF 5 ML VIAL ONE (08:30)
[2022-06-23] MEDS ORDERED: Sodium Bicarbonate 2.5 MEQ/5 ML VIAL ONE (08:30)
[2022-06-23 08:33] LABS: #Eosinphils 0.1 thou/uL (0.0-0.7); #Lymphocytes 0.7 thou/uL (1.20-3.40); #Monocytes 0.5 thou/uL (0.11-0.59); #Neutrophils 4.5 thou/uL (1.40-6.50); %Basophils 0.5 % (0.0-1.0); %Eosinophils 1.2 % (0.0-10.0); %Lymphocytes 12.4 % (21.0-51.0); %Monocytes 8.7 % (0.0-10.0); %Neutrophils 77.2 % (42.0-75.0); Hemoglobin 12.3 g/dL (12.0-16.0); Mean Corpuscular HGB CONC 32.4 g/dL (32.0-36.0); Mean Corpuscular Hemoglobin 29.9 pg (27.0-31.0); Mean Corpuscular Volume 92.3 fL (78.0-98.0); Mean Platelet Volume 11.4 fL (7.4-10.4); Platelet Count 140 thou/uL (130-400); RBC Distribution Width 13.8 % (11.5-14.5); Red Blood Cell (RBC) Count 4.11 mill/uL (4.20-5.40); White Blood Cell (WBC) Count 5.9 thou/uL (4.8-10.8)
[2022-06-23 08:44] LABS: INR-International Normal Ratio 1.1; Prothrombin Time 14.8 sec (12.0-14.7)
[2022-06-23 08:45] LABS: PTT 42.9 sec (22.9-36.1)
[2022-06-23 08:46] LABS: Anion Gap 14 mmol/L (10-20); BUN (Urea Nitrogen) 26 mg/dL (9.8-20.1); Calc. Creatinine Clearance 35 mL/min (70-130); Carbon Dioxide 25 mmol/L (23-31); Chloride 100 mmol/L (98-107); Estimated GFR 37; Glucose 156 mg/dL (83-110); Potassium 3.9 mmol/L (3.5-5.1); Sodium 135 mmol/L (136-145)
== END 2022-06-23 09:45 | disposition home or self-care (01) ==
LOC: ULT 07:23
PROVIDERS: ATTEND Internal Medicine Gastroenterology
PROC: 0W9G3ZZ Drainage of Peritoneal Cavity, Percutaneous Approach (ICD-10-PCS; principal; 2022-06-23)
DX: K74.60 Unspecified cirrhosis of liver (principal); R18.8 Other ascites; K76.82 Hepatic encephalopathy; E11.9 Type 2 diabetes mellitus without complications; E78.00 Pure hypercholesterolemia, unspecified; I10 Essential (primary) hypertension; L40.50 Arthropathic psoriasis, unspecified; Z79.84 Long term (current) use of oral hypoglycemic drugs; Z79.899 Other long term (current) drug therapy; Z88.6 Allergy status to analgesic agent; Z88.8 Allergy status to other drugs, medicaments and biological substances; Z91.040 Latex allergy status; Z91.048 Other nonmedicinal substance allergy status
CPT/HCPCS: 49083; 80048; 82105; 85025; 85610; 85730; J2001

== ENCOUNTER 2022-07-21 07:35 | Day surgery (SDC) | payer MEDICARE ==
[2022-07-20 13:23] VITALS: BMI 26.1
[2022-07-21 07:49] LABS: #Lymphocytes 0.6 thou/uL (1.20-3.40); #Monocytes 0.3 thou/uL (0.11-0.59); #Neutrophils 3.3 thou/uL (1.40-6.50); %Basophils 0.5 % (0.0-1.0); %Lymphocytes 13.5 % (21.0-51.0); %Monocytes 7.8 % (0.0-10.0); %Neutrophils 77.2 % (42.0-75.0); Hemoglobin 12.1 g/dL (12.0-16.0); Mean Corpuscular HGB CONC 32.1 g/dL (32.0-36.0); Mean Corpuscular Hemoglobin 29.8 pg (27.0-31.0); Mean Platelet Volume 10.9 fL (7.4-10.4); Platelet Count 136 10x3/uL (130-400); Red Blood Cell (RBC) Count 4.06 mill/uL (4.20-5.40); White Blood Cell (WBC) Count 4.3 10x3/uL (4.8-10.8)
[2022-07-21] MEDS ORDERED: Lidocaine 2% PF 5 ML VIAL ONE (07:55)
[2022-07-21] MEDS ORDERED: Sodium Bicarbonate 2.5 MEQ/5 ML VIAL ONE (07:55)
[2022-07-21] MEDS ORDERED: Albumin 25% 200 ML ONE (07:55)
[2022-07-21 08:11] LABS: Anion Gap 17 mmol/L (10-20); BUN (Urea Nitrogen) 26 mg/dL (9.8-20.1); Calc. Creatinine Clearance 33 mL/min (70-130); Carbon Dioxide 22 mmol/L (23-31); Chloride 103 mmol/L (98-107); Estimated GFR 36; Glucose 174 mg/dL (83-110); Potassium 3.6 mmol/L (3.5-5.1); Sodium 138 mmol/L (136-145)
[2022-07-21 08:15] LABS: INR-International Normal Ratio 1.1; PTT 43.1 sec (22.9-36.1); Prothrombin Time 14.6 sec (12.0-14.7)
[2022-07-21 09:37] VITALS: BP 116/68; TEMP 98.4
== END 2022-07-21 09:10 | disposition home or self-care (01) ==
LOC: ULT 07:35
PROVIDERS: ATTEND Internal Medicine Gastroenterology
PROC: 0W9G3ZZ Drainage of Peritoneal Cavity, Percutaneous Approach (ICD-10-PCS; principal; 2022-07-21)
DX: R18.8 Other ascites (principal); Z88.6 Allergy status to analgesic agent; Z88.8 Allergy status to other drugs, medicaments and biological substances; Z91.040 Latex allergy status; Z91.048 Other nonmedicinal substance allergy status
CPT/HCPCS: 49083; 80048; 85025; 85610; 85730; P9047; J2001

== ENCOUNTER 2022-08-04 07:24 | Day surgery (SDC) | payer MEDICARE ==
[2022-08-03 12:37] VITALS: BMI 26.1
[2022-08-04] MEDS ORDERED: Albumin 25% 200 ML ONE (08:08)
[2022-08-04] MEDS ORDERED: Sodium Bicarbonate 2.5 MEQ/5 ML VIAL ONE ×2 (08:08→09:04)
[2022-08-04] MEDS ORDERED: Lidocaine 2% PF 5 ML VIAL ONE ×2 (08:08→09:04)
[2022-08-04 10:37] VITALS: BP 129/71; TEMP 98
[2022-08-06] MEDS ORDERED: FLU VACC QS2022-23(65YR UP)/PF 240 MCG/0.7 ML SYRINGE IM ONE (12:45)
== END 2022-08-04 09:55 | disposition home or self-care (01) ==
LOC: ULT 07:24
PROVIDERS: ATTEND Internal Medicine Gastroenterology
PROC: 0W9G3ZZ Drainage of Peritoneal Cavity, Percutaneous Approach (ICD-10-PCS; principal; 2022-08-04)
DX: K74.60 Unspecified cirrhosis of liver (principal); R18.8 Other ascites; Z79.84 Long term (current) use of oral hypoglycemic drugs; Z79.899 Other long term (current) drug therapy; Z88.6 Allergy status to analgesic agent; Z88.8 Allergy status to other drugs, medicaments and biological substances; Z91.040 Latex allergy status; Z91.048 Other nonmedicinal substance allergy status
CPT/HCPCS: 49083; P9047; J2001

== ENCOUNTER 2022-08-18 07:25 | Day surgery (SDC) | payer MEDICARE ==
[2022-08-17 10:10] VITALS: BMI 26.1
[2022-08-18] MEDS ORDERED: Albumin 25% 200 ML ONE (07:43)
[2022-08-18] MEDS ORDERED: Lidocaine 2% PF 5 ML VIAL ONE (07:44)
[2022-08-18] MEDS ORDERED: Sodium Bicarbonate 2.5 MEQ/5 ML VIAL ONE (07:44)
[2022-08-18 07:57] LABS: #Eosinphils 0.1 thou/uL (0.0-0.7); #Lymphocytes 0.7 thou/uL (1.20-3.40); #Monocytes 0.4 thou/uL (0.11-0.59); #Neutrophils 4.7 thou/uL (1.40-6.50); %Lymphocytes 11.5 % (21.0-51.0); %Monocytes 7.5 % (0.0-10.0); Hemoglobin 12.6 g/dL (12.0-16.0); Mean Corpuscular HGB CONC 32.2 g/dL (32.0-36.0); Mean Corpuscular Hemoglobin 30.1 pg (27.0-31.0); Mean Corpuscular Volume 93.3 fl (78.0-98.0); Mean Platelet Volume 10.5 fL (7.4-10.4); Platelet Count 146 10x3/uL (130-400); RBC Distribution Width 13.2 % (11.5-14.5); Red Blood Cell (RBC) Count 4.18 mill/uL (4.20-5.40); White Blood Cell (WBC) Count 5.9 10x3/uL (4.8-10.8)
[2022-08-18 08:10] LABS: INR-International Normal Ratio 1.1; Prothrombin Time 14.7 sec (12.0-14.7)
[2022-08-18 08:11] LABS: PTT 41.2 sec (22.9-36.1)
[2022-08-18 08:24] LABS: Anion Gap 15 mmol/L (10-20); BUN (Urea Nitrogen) 26 mg/dL (9.8-20.1); Calc. Creatinine Clearance 34 mL/min (70-130); Calcium 9.6 mg/dL (7.8-10.44); Carbon Dioxide 23 mmol/L (23-31); Chloride 102 mmol/L (98-107); Estimated GFR 37; Glucose 162 mg/dL (83-110); Sodium 136 mmol/L (136-145)
[2022-08-18 11:45] VITALS: BP 129/70; TEMP 97.5
== END 2022-08-18 09:58 | disposition home or self-care (01) ==
LOC: ULT 07:25
PROVIDERS: ATTEND Internal Medicine Gastroenterology
PROC: 0W9G3ZZ Drainage of Peritoneal Cavity, Percutaneous Approach (ICD-10-PCS; principal; 2022-08-18)
DX: K74.60 Unspecified cirrhosis of liver (principal); R18.8 Other ascites; Z88.6 Allergy status to analgesic agent; Z88.8 Allergy status to other drugs, medicaments and biological substances; Z91.040 Latex allergy status; Z91.048 Other nonmedicinal substance allergy status
CPT/HCPCS: 49083; 80048; 85025; 85610; 85730; P9047; 80076; 87086; 93005; 93010; J2001

== ENCOUNTER 2022-08-18 09:54 | Outpatient (CLI) | payer MEDICARE ==
[2022-08-18 11:25] LABS: ALT (SGPT) 22 U/L (8-55); AST (SGOT) 32 U/L (5-34); Alkaline Phosphatase 129 U/L (40-110); Bilirubin, Direct 0.4 mg/dL (0.1-0.3); Bilirubin, Total 1.1 mg/dL (0.2-1.2); Protein, Total 6.9 g/dL (5.8-8.1)
== END 2022-08-18 09:55 | disposition home or self-care (01) ==
LOC: LABBT 09:54
PROVIDERS: ATTEND Urology
DX: Z01.812 Encounter for preprocedural laboratory examination (principal); N20.1 Calculus of ureter
CPT/HCPCS: 80076; 87086; 93005; 93010

== ENCOUNTER 2022-08-25 09:54 | Day surgery (SDC) | payer MEDICARE ==
[2022-08-24 13:12] VITALS: BMI 27.4
[2022-08-25] MEDS ORDERED: Fentanyl 100 MCG/2 ML VIAL ONE (12:54)
[2022-08-25] MEDS ORDERED: Famotidine/PF 20 mg/2ml Vial ONE (12:55)
[2022-08-25] MEDS ORDERED: CEFAZOLIN 2 GM VIAL ONE (13:01)
[2022-08-25] MEDS ORDERED: Sodium Chloride 0.9% 100 ML ONE (13:01)
[2022-08-25] MEDS ORDERED: Ondansetron PF 4 MG/2 ML Vial ONE (13:08)
[2022-08-25] MEDS ORDERED: Metoclopramide HCl 10 MG/2 ML VIAL ONE (13:08)
[2022-08-25] MEDS ORDERED: PROPOFOL 200 MG/20 ML VIAL ONE (13:08)
[2022-08-25] MEDS ORDERED: ePHEDrine 50 MG/ML VIAL ONE (13:08)
[2022-08-25] MEDS ORDERED: Lidocaine 1% PF 5 ML VIAL ONE (13:08)
[2022-08-25] MEDS ORDERED: Iopamidol 15 ML ONE ×2 (13:17→13:34)
== END 2022-08-25 16:22 | disposition home or self-care (01) ==
LOC: SDC 09:54
PROVIDERS: ATTEND Urology
PROC: 0TC78ZZ Extirpation of Matter from Left Ureter, Via Natural or Artificial Opening Endoscopic (ICD-10-PCS; principal; 2022-08-25)
PROC: 0T768DZ Dilation of Right Ureter with Intraluminal Device, Via Natural or Artificial Opening Endoscopic (ICD-10-PCS; 2022-08-25)
DX: N13.2 Hydronephrosis with renal and ureteral calculous obstruction (principal); N13.8 Other obstructive and reflux uropathy; N13.4 Hydroureter; K74.60 Unspecified cirrhosis of liver; E11.9 Type 2 diabetes mellitus without complications; Z79.2 Long term (current) use of antibiotics; Z79.84 Long term (current) use of oral hypoglycemic drugs; Z79.899 Other long term (current) drug therapy; Z88.6 Allergy status to analgesic agent; Z88.8 Allergy status to other drugs, medicaments and biological substances; Z91.040 Latex allergy status; Z91.048 Other nonmedicinal substance allergy status
CPT/HCPCS: 74420; 82365; 88300; C2617; J2405; J2704; J2765; J3010; J3490; Q9967; S0028

== ENCOUNTER → 2022-09-01 | Day surgery (SDC) | payer MEDICARE ==
[2022-08-27 11:03] VITALS: BMI 24.5
[~2022-09-01] MED LIST changes: +Lidocaine 1% PF 5 ML VIAL ONE; -Lidocaine 2% PF 5 ML VIAL ONE
[2022-09-01 09:17] VITALS: BP 121/57; TEMP 98.7
== END | disposition home or self-care (01) ==
LOC: ULT 07:22
PROVIDERS: ATTEND Internal Medicine Gastroenterology
PROC: 0W9G3ZZ Drainage of Peritoneal Cavity, Percutaneous Approach (ICD-10-PCS; principal; 2022-09-01)
DX: R18.8 Other ascites (principal); Z79.84 Long term (current) use of oral hypoglycemic drugs; Z79.899 Other long term (current) drug therapy; Z88.6 Allergy status to analgesic agent; Z88.8 Allergy status to other drugs, medicaments and biological substances; Z91.040 Latex allergy status; Z91.048 Other nonmedicinal substance allergy status
CPT/HCPCS: 49083; P9047

== ENCOUNTER 2022-09-09 09:10 | Outpatient (CLI) | payer MEDICARE ==
[2022-09-09 10:10] LABS: Hemoglobin 12.8 g/dL (12.0-15.5); Mean Corpuscular HGB CONC 33.3 g/dL (32.0-36.0); Mean Corpuscular Hemoglobin 29.8 pg (27.0-33.0); Mean Corpuscular Volume 89.5 fl (81.6-98.3); Platelet Count 155 10x3/uL (150-450); Red Blood Cell (RBC) Count 4.29 10x6/uL (3.90-5.03); White Blood Cell (WBC) Count 5.7 10x3/uL (3.5-10.5)
[2022-09-09 10:15] LABS: Anion Gap 15 mmol/L (10-20); BUN (Urea Nitrogen) 32 mg/dL (9.8-20.1); Calc. Creatinine Clearance 0 mL/min (70-130); Calcium 9.7 mg/dL (7.8-10.44); Carbon Dioxide 24 mmol/L (23-31); Chloride 101 mmol/L (98-107); Estimated GFR 44; Glucose 130 mg/dL (83-110); PTT 31.4 sec (22.0-33.0); Potassium 3.8 mmol/L (3.5-5.1); Prothrombin Time 11.2 sec (9.5-12.1); Sodium 136 mmol/L (136-145)
[2022-09-09 10:16] LABS: ALT (SGPT) 24 U/L (8-55); AST (SGOT) 38 U/L (5-34); Albumin 3.7 g/dL (3.4-4.8); Alkaline Phosphatase 140 U/L (40-110); Bilirubin, Direct 0.4 mg/dL (0.1-0.3); Bilirubin, Total 1.2 mg/dL (0.2-1.2); Protein, Total 6.8 g/dL (5.8-8.1)
== END 2022-09-09 09:11 | disposition home or self-care (01) ==
LOC: LABBT 09:10
PROVIDERS: ATTEND Urology
DX: Z01.812 Encounter for preprocedural laboratory examination (principal); N20.1 Calculus of ureter
CPT/HCPCS: 80048; 80076; 85027; 85610; 85730; 87086

== ENCOUNTER 2022-09-14 06:50 | Day surgery (SDC) | payer MEDICARE ==
[2022-09-14] MEDS ORDERED: Fentanyl 100 MCG/2 ML VIAL ONE (08:31)
[2022-09-14] MEDS ORDERED: Famotidine/PF 20 mg/2ml Vial ONE (08:31)
[2022-09-14] MEDS ORDERED: Sodium Chloride 0.9% 100 ML ONE (08:42)
[2022-09-14] MEDS ORDERED: CEFAZOLIN 2 GM VIAL ONE (08:42)
[2022-09-14] MEDS ORDERED: Glycopyrrolate 0.2 MG/ML 5 ML SYRINGE ONE (08:47)
[2022-09-14] MEDS ORDERED: Rocuronium Bromide 10 MG/ML (10ML VIAL) ONE (08:47)
[2022-09-14] MEDS ORDERED: PROPOFOL 200 MG/20 ML VIAL ONE (08:47)
[2022-09-14] MEDS ORDERED: Ondansetron PF 4 MG/2 ML Vial ONE (08:47)
[2022-09-14] MEDS ORDERED: PHENYLEPHRINE-NS 100 MCG/ML 10 ML SYRINGE ONE (08:47)
[2022-09-14] MEDS ORDERED: Metoclopramide HCl 10 MG/2 ML VIAL ONE (08:47)
[2022-09-14] MEDS ORDERED: NEOSTIGMINE 3 MG/3 ML SYR 3 MG/3 ML SYRINGE ONE (08:47)
[2022-09-14] MEDS ORDERED: Lidocaine 1% PF 5 ML VIAL ONE (08:47)
[2022-09-14] MEDS ORDERED: Iopamidol 30 ML ONE (09:57)
[2022-09-18 09:14] LABS: CA Oxalate Monohydrate 100 % (.); Color Brown (.); Stone Weight 11 mg (.)
== END 2022-09-14 12:27 | disposition home or self-care (01) ==
LOC: SDC 06:50
PROVIDERS: ATTEND Urology
PROC: 0TC68ZZ Extirpation of Matter from Right Ureter, Via Natural or Artificial Opening Endoscopic (ICD-10-PCS; principal; 2022-09-14)
PROC: 0T768DZ Dilation of Right Ureter with Intraluminal Device, Via Natural or Artificial Opening Endoscopic (ICD-10-PCS; 2022-09-14)
PROC: 0T9D80Z Drainage of Urethra with Drainage Device, Via Natural or Artificial Opening Endoscopic (ICD-10-PCS; 2022-09-14)
DX: N13.2 Hydronephrosis with renal and ureteral calculous obstruction (principal); N13.4 Hydroureter; I10 Essential (primary) hypertension; E11.9 Type 2 diabetes mellitus without complications; Z79.84 Long term (current) use of oral hypoglycemic drugs; Z79.899 Other long term (current) drug therapy; Z88.6 Allergy status to analgesic agent; Z88.8 Allergy status to other drugs, medicaments and biological substances; Z91.040 Latex allergy status
CPT/HCPCS: 52282; 52356; 74420; 82365; C2617; 88300; J2405; J2704; J2765; J3010; J3490; Q9967; S0028

== ENCOUNTER 2022-09-15 07:34 | Day surgery (SDC) | payer MEDICARE ==
[2022-09-15] MEDS ORDERED: Sodium Bicarbonate 2.5 MEQ/5 ML VIAL ONE (07:50)
[2022-09-15] MEDS ORDERED: Albumin 25% 200 ML ONE (07:50)
[2022-09-15] MEDS ORDERED: Lidocaine 1% PF 5 ML VIAL ONE (07:50)
[2022-09-15 12:45] VITALS: BP 119/59; TEMP 99
== END 2022-09-15 09:41 | disposition home or self-care (01) ==
LOC: ULT 07:34
PROVIDERS: ATTEND Internal Medicine Gastroenterology
PROC: 0W9G3ZZ Drainage of Peritoneal Cavity, Percutaneous Approach (ICD-10-PCS; principal; 2022-09-15)
DX: K74.60 Unspecified cirrhosis of liver (principal); R18.8 Other ascites; Z88.6 Allergy status to analgesic agent; Z88.8 Allergy status to other drugs, medicaments and biological substances; Z91.040 Latex allergy status; Z91.048 Other nonmedicinal substance allergy status
CPT/HCPCS: 49083; P9047

== ENCOUNTER → 2022-09-29 | Day surgery (SDC) | payer MEDICARE ==
[~2022-09-29] MED LIST changes: +FLU VACC QS2022-23(65YR UP)/PF 240 MCG/0.7 ML SYRINGE IM ONE
[2022-09-29 06:46] VITALS: BMI 26.1
== END | disposition home or self-care (01) ==
LOC: ULT 07:23
PROVIDERS: ATTEND Internal Medicine Gastroenterology
PROC: 0W9G3ZZ Drainage of Peritoneal Cavity, Percutaneous Approach (ICD-10-PCS; principal; 2022-09-29)
DX: R18.8 Other ascites (principal); Z88.6 Allergy status to analgesic agent; Z88.8 Allergy status to other drugs, medicaments and biological substances; Z91.040 Latex allergy status; Z91.048 Other nonmedicinal substance allergy status
CPT/HCPCS: 49083; P9047

== ENCOUNTER 2022-10-13 07:24 | Day surgery (SDC) | payer MEDICARE ==
[2022-10-09 13:23] VITALS: BMI 26.1
[2022-10-13] MEDS ORDERED: Sodium Bicarbonate 2.5 MEQ/5 ML VIAL ONE (07:42)
[2022-10-13] MEDS ORDERED: Lidocaine 1% PF 5 ML VIAL ONE (07:42)
[2022-10-13] MEDS ORDERED: Albumin 25% 200 ML ONE (07:42)
[2022-10-13 07:58] LABS: #Eosinphils 0.1 thou/uL (0.0-0.7); #Lymphocytes 0.8 thou/uL (1.20-3.40); #Monocytes 0.5 thou/uL (0.11-0.59); #Neutrophils 4.3 thou/uL (1.40-6.50); %Basophils 0.1 % (0.0-1.0); %Lymphocytes 13.9 % (21.0-51.0); %Monocytes 8.4 % (0.0-10.0); %Neutrophils 76.7 % (42.0-75.0); Hemoglobin 12.6 g/dL (12.0-16.0); Mean Corpuscular HGB CONC 32.3 g/dL (32.0-36.0); Mean Corpuscular Volume 92.8 fl (78.0-98.0); Platelet Count 136 10x3/uL (130-400); RBC Distribution Width 12.4 % (11.5-14.5); Red Blood Cell (RBC) Count 4.21 mill/uL (4.20-5.40); White Blood Cell (WBC) Count 5.5 10x3/uL (4.8-10.8)
[2022-10-13 08:05] LABS: Hemoglobin A1c 6.7 % (4.0-6.0)
[2022-10-13 08:19] LABS: Anion Gap 15 mmol/L (10-20); BUN (Urea Nitrogen) 35 mg/dL (9.8-20.1); Calc. Creatinine Clearance 30 mL/min (70-130); Calcium 9.7 mg/dL (7.8-10.44); Carbon Dioxide 24 mmol/L (23-31); Chloride 103 mmol/L (98-107); Estimated GFR 32; Glucose 158 mg/dL (83-110); Potassium 4.1 mmol/L (3.5-5.1); Sodium 138 mmol/L (136-145)
[2022-10-13 08:20] LABS: Cardiac Risk 3.6 (Less than 4.5)
[2022-10-13 08:43] LABS: Vitamin D, 25 Hydroxy 20.1 ng/ml (> 30.0)
[2022-10-13 08:48] LABS: INR-International Normal Ratio 1.1; PTT 34.3 sec (22.9-36.1); Prothrombin Time 15.1 sec (12.0-14.7)
[2022-10-13 10:43] VITALS: BP 121/53
[2022-10-13 14:33] LABS: Free T4 (Free Thyroxine) 1.45 ng/dL (0.70-1.48)
== END 2022-10-13 09:30 | disposition home or self-care (01) ==
LOC: ULT 07:24
PROVIDERS: ATTEND Internal Medicine Gastroenterology
PROC: 0W9G3ZZ Drainage of Peritoneal Cavity, Percutaneous Approach (ICD-10-PCS; principal; 2022-10-13)
DX: K74.60 Unspecified cirrhosis of liver (principal); R18.8 Other ascites; Z88.6 Allergy status to analgesic agent; Z88.8 Allergy status to other drugs, medicaments and biological substances; Z91.040 Latex allergy status; Z91.048 Other nonmedicinal substance allergy status
CPT/HCPCS: 49083; 80048; 80061; 82306; 82607; 83036; 84443; 85025; 85610; 85730; P9047; 84436; 84439

== ENCOUNTER 2022-10-27 07:24 | Day surgery (SDC) | payer MEDICARE ==
[2022-10-23 08:18] VITALS: BMI 26.1
[~2022-10-27 07:24] MED LIST changes: -Albumin 25% 200 ML ONE; -Lidocaine 1% PF 5 ML VIAL ONE; -Sodium Bicarbonate 2.5 MEQ/5 ML VIAL ONE
[2022-10-27] MEDS ORDERED: Lidocaine 1% PF 5 ML VIAL ONE (07:29)
[2022-10-27] MEDS ORDERED: Albumin 25% 200 ML ONE (07:29)
[2022-10-27] MEDS ORDERED: Sodium Bicarbonate 2.5 MEQ/5 ML VIAL ONE (07:29)
== END 2022-10-27 09:27 | disposition home or self-care (01) ==
LOC: ULT 07:24
PROVIDERS: ATTEND Internal Medicine Gastroenterology
PROC: 0W9G3ZZ Drainage of Peritoneal Cavity, Percutaneous Approach (ICD-10-PCS; principal; 2022-10-27)
DX: K74.60 Unspecified cirrhosis of liver (principal); R18.8 Other ascites; Z79.84 Long term (current) use of oral hypoglycemic drugs; Z79.899 Other long term (current) drug therapy; Z88.6 Allergy status to analgesic agent; Z88.8 Allergy status to other drugs, medicaments and biological substances; Z91.040 Latex allergy status; Z91.048 Other nonmedicinal substance allergy status
CPT/HCPCS: 49083; P9047

== ENCOUNTER 2022-11-10 07:45 | Day surgery (SDC) | payer MEDICARE ==
[2022-11-09 09:13] VITALS: BMI 26.1
[2022-11-10 07:49] LABS: #Eosinphils 0.1 thou/uL (0.0-0.7); #Lymphocytes 0.7 thou/uL (1.20-3.40); #Monocytes 0.4 thou/uL (0.11-0.59); #Neutrophils 4.1 thou/uL (1.40-6.50); %Basophils 0.3 % (0.0-1.0); %Eosinophils 1.3 % (0.0-10.0); %Lymphocytes 13.3 % (21.0-51.0); %Monocytes 6.7 % (0.0-10.0); %Neutrophils 78.4 % (42.0-75.0); Mean Corpuscular HGB CONC 32.3 g/dL (32.0-36.0); Mean Corpuscular Volume 92.8 fl (78.0-98.0); Mean Platelet Volume 10.9 fL (7.4-10.4); Platelet Count 130 10x3/uL (130-400); RBC Distribution Width 13.1 % (11.5-14.5); White Blood Cell (WBC) Count 5.2 10x3/uL (4.8-10.8)
[2022-11-10 08:02] LABS: INR-International Normal Ratio 1.1; Prothrombin Time 14.2 sec (12.0-14.7)
[2022-11-10 08:06] LABS: Anion Gap 15 mmol/L (10-20); BUN (Urea Nitrogen) 27 mg/dL (9.8-20.1); Calc. Creatinine Clearance 33 mL/min (70-130); Calcium 9.1 mg/dL (7.8-10.44); Carbon Dioxide 21 mmol/L (23-31); Chloride 102 mmol/L (98-107); Estimated GFR 36; Glucose 199 mg/dL (83-110); Potassium 3.9 mmol/L (3.5-5.1); Sodium 134 mmol/L (136-145)
[2022-11-10] MEDS ORDERED: Lidocaine 1% PF 5 ML VIAL ONE (08:15)
[2022-11-10] MEDS ORDERED: Albumin 25% 200 ML ONE (08:15)
[2022-11-10] MEDS ORDERED: Sodium Bicarbonate 2.5 MEQ/5 ML VIAL ONE (08:15)
[2022-11-10 09:56] VITALS: BP 112/53
[2022-11-10] MEDS ORDERED: Albumin 25% 25 GM/100 ML BOT IVPB SCH (10:00)
== END 2022-11-10 09:45 | disposition home or self-care (01) ==
LOC: ULT 07:45
PROVIDERS: ATTEND Internal Medicine Gastroenterology
PROC: 0W9G3ZZ Drainage of Peritoneal Cavity, Percutaneous Approach (ICD-10-PCS; principal; 2022-11-10)
DX: K74.60 Unspecified cirrhosis of liver (principal); R18.8 Other ascites; Z79.84 Long term (current) use of oral hypoglycemic drugs; Z79.899 Other long term (current) drug therapy; Z88.6 Allergy status to analgesic agent; Z88.8 Allergy status to other drugs, medicaments and biological substances; Z91.040 Latex allergy status; Z91.048 Other nonmedicinal substance allergy status
CPT/HCPCS: 49083; 80048; 85025; 85610; P9047

== ENCOUNTER 2022-12-08 07:31 | Day surgery (SDC) | payer MEDICARE ==
[2022-12-07 10:40] VITALS: BMI 26.2
[2022-12-08] MEDS ORDERED: Lidocaine 1% PF 5 ML VIAL ONE (07:47)
[2022-12-08] MEDS ORDERED: Albumin 25% 200 ML ONE (07:47)
[2022-12-08 13:33] VITALS: BP 113/64; TEMP 96.9
== END 2022-12-08 10:00 | disposition home or self-care (01) ==
LOC: ULT 07:31
PROVIDERS: ATTEND Internal Medicine Gastroenterology
PROC: 0W9G3ZZ Drainage of Peritoneal Cavity, Percutaneous Approach (ICD-10-PCS; principal; 2022-12-08)
DX: K74.60 Unspecified cirrhosis of liver (principal); R18.8 Other ascites; Z88.6 Allergy status to analgesic agent; Z88.8 Allergy status to other drugs, medicaments and biological substances; Z91.040 Latex allergy status; Z91.048 Other nonmedicinal substance allergy status
CPT/HCPCS: 49083; P9047

== ENCOUNTER → 2022-12-22 | Day surgery (SDC) | payer MEDICARE ==
[2022-12-18 15:49] VITALS: BMI 26.1
[~2022-12-22] MED LIST changes: +Albumin 25% 200 ML ONE; -FLU VACC QS2022-23(65YR UP)/PF 240 MCG/0.7 ML SYRINGE IM ONE; +Lidocaine 1% PF 5 ML VIAL ONE; +Sodium Bicarbonate 2.5 MEQ/5 ML VIAL ONE
[2022-12-22 07:50] LABS: #Eosinphils 0.1 thou/uL (0.0-0.7); #Lymphocytes 0.8 thou/uL (1.20-3.40); #Monocytes 0.4 thou/uL (0.11-0.59); #Neutrophils 5.2 thou/uL (1.40-6.50); %Basophils 0.4 % (0.0-1.0); %Eosinophils 0.9 % (0.0-10.0); %Lymphocytes 12.8 % (21.0-51.0); %Monocytes 6.3 % (0.0-10.0); %Neutrophils 79.5 % (42.0-75.0); Hemoglobin 12.3 g/dL (12.0-16.0); Mean Corpuscular HGB CONC 32.6 g/dL (32.0-36.0); Mean Corpuscular Hemoglobin 30.1 pg (27.0-31.0); Mean Corpuscular Volume 92.3 fl (78.0-98.0); Mean Platelet Volume 11.1 fL (7.4-10.4); Platelet Count 131 10x3/uL (130-400); White Blood Cell (WBC) Count 6.5 10x3/uL (4.8-10.8)
[2022-12-22 08:06] LABS: INR-International Normal Ratio 1.1; Prothrombin Time 14.9 sec (12.0-14.7)
[2022-12-22 08:07] LABS: PTT 37.8 sec (22.9-36.1)
[2022-12-22 08:11] LABS: Anion Gap 19 mmol/L (10-20); BUN (Urea Nitrogen) 28 mg/dL (9.8-20.1); Calc. Creatinine Clearance 33 mL/min (70-130); Calcium 8.9 mg/dL (7.8-10.44); Carbon Dioxide 17 mmol/L (23-31); Chloride 105 mmol/L (98-107); Estimated GFR 36; Glucose 177 mg/dL (83-110); Potassium 3.9 mmol/L (3.5-5.1); Sodium 137 mmol/L (136-145)
== END | disposition home or self-care (01) ==
LOC: ULT 07:31
PROVIDERS: ATTEND Internal Medicine Gastroenterology
PROC: 0W9G3ZZ Drainage of Peritoneal Cavity, Percutaneous Approach (ICD-10-PCS; principal; 2022-12-22)
DX: K74.60 Unspecified cirrhosis of liver (principal); R18.8 Other ascites; Z88.6 Allergy status to analgesic agent; Z88.8 Allergy status to other drugs, medicaments and biological substances; Z91.040 Latex allergy status; Z91.048 Other nonmedicinal substance allergy status
CPT/HCPCS: 49083; 80048; 85025; 85610; 85730; P9047

== ENCOUNTER 2022-12-30 16:53 | Inpatient (IN) | payer MEDICARE ==
[~2022-12-30 16:53] MED LIST changes: -Albumin 25% 200 ML ONE; +Iopamidol-370 76% 500 ML MDV (1 ML CHARGE) ONE; -Lidocaine 1% PF 5 ML VIAL ONE; -Sodium Bicarbonate 2.5 MEQ/5 ML VIAL ONE
[2022-12-30 18:41] LABS: #Lymphocytes 0.9 thou/uL (1.20-3.40); #Monocytes 0.5 thou/uL (0.11-0.59); #Neutrophils 4.9 thou/uL (1.40-6.50); %Basophils 0.7 % (0.0-1.0); %Eosinophils 0.1 % (0.0-10.0); %Lymphocytes 14.6 % (21.0-51.0); %Monocytes 7.3 % (0.0-10.0); %Neutrophils 77.4 % (42.0-75.0); Hemoglobin 14.2 g/dL (12.0-16.0); Mean Corpuscular Hemoglobin 30.9 pg (27.0-31.0); Mean Corpuscular Volume 90.9 fl (78.0-98.0); Mean Platelet Volume 10.8 fL (7.4-10.4); Platelet Count 179 10x3/uL (130-400); RBC Distribution Width 12.9 % (11.5-14.5); White Blood Cell (WBC) Count 6.3 10x3/uL (4.8-10.8)
[2022-12-30 19:07] LABS: ALT (SGPT) 19 U/L (8-55); AST (SGOT) 30 U/L (5-34); Albumin 3.7 g/dL (3.4-4.8); Alkaline Phosphatase 124 U/L (40-110); Anion Gap 25 mmol/L (10-20); BUN (Urea Nitrogen) 22 mg/dL (9.8-20.1); Bilirubin, Total 1.5 mg/dL (0.2-1.2); Calc. Creatinine Clearance 0 mL/min (70-130); Calcium 10.6 mg/dL (7.8-10.44); Carbon Dioxide 16 mmol/L (23-31); Chloride 102 mmol/L (98-107); Estimated GFR 35; Globulin 3.9 g/dL (2.4-3.5); Glucose 139 mg/dL (83-110); Lipase 39 U/L (8-78); Potassium 4.5 mmol/L (3.5-5.1); Protein, Total 7.6 g/dL (5.8-8.1); Sodium 138 mmol/L (136-145)
[2022-12-30] MEDS ORDERED: Ketorolac Tromethamine 30 MG/ML VIAL ONE (19:40)
[2022-12-30] MEDS ORDERED: Ondansetron PF 4 MG/2 ML Vial ONE ×2 (19:40→22:57)
[2022-12-30] MEDS ORDERED: Acetaminophen 500 MG TAB PO PRN (23:00)
[2022-12-30] MEDS ORDERED: HumaLOG 300 UNITS/3 ML VIAL SC PRN ×2 (23:07)
[2022-12-30] MEDS ORDERED: Dextrose 50% Abboject 50 ML SYRINGE SLOW IVP PRN (23:07)
[2022-12-30] MEDS ORDERED: Dextrose 5% in Water 1,000 ML IV PRN (23:07)
[2022-12-30] MEDS ORDERED: Pantoprazole 40 MG VIAL IVP SCH (23:15)
[2022-12-31 00:11] LABS: Lactic Acid 2.2 mmol/L (0.5-2.2)
[2022-12-31] MEDS ORDERED: cefTRIAXone (ROCEPHIN) 1 GM VIAL ONE (01:40)
[2022-12-31] MEDS ORDERED: Pantoprazole 40 MG VIAL ONE (01:41)
[2022-12-31] MEDS: cefTRIAXone\\ROCEPHIN 1 GM in Sodium Chloride 0.9% 100 ML IVPB SCH ×2 (01:55→22:44)
[2022-12-31] MEDS ORDERED: Ondansetron PF 4 MG/2 ML Vial IVP PRN (05:00)
[2022-12-31 07:56] VITALS: BMI 30.2
[2022-12-31] MEDS ORDERED: Lidocaine 1% PF 5 ML VIAL ONE (08:16)
[2022-12-31] MEDS ORDERED: Sodium Bicarbonate 2.5 MEQ/5 ML VIAL ONE (08:16)
[2022-12-31] MEDS ORDERED: Albumin 25% 200 ML ONE (08:25)
[2022-12-31 08:34] LABS: #Lymphocytes 0.6 thou/uL (1.20-3.40); #Monocytes 0.4 thou/uL (0.11-0.59); #Neutrophils 3.4 thou/uL (1.40-6.50); %Basophils 0.3 % (0.0-1.0); %Eosinophils 0.6 % (0.0-10.0); %Lymphocytes 13.3 % (21.0-51.0); %Monocytes 9.3 % (0.0-10.0); %Neutrophils 76.5 % (42.0-75.0); Hemoglobin 12.2 g/dL (12.0-16.0); Mean Corpuscular HGB CONC 33.5 g/dL (32.0-36.0); Mean Corpuscular Hemoglobin 30.6 pg (27.0-31.0); Mean Corpuscular Volume 91.6 fl (78.0-98.0); Mean Platelet Volume 10.7 fL (7.4-10.4); Platelet Count 123 10x3/uL (130-400); Red Blood Cell (RBC) Count 3.98 mill/uL (4.20-5.40); White Blood Cell (WBC) Count 4.4 10x3/uL (4.8-10.8)
[2022-12-31 08:55] LABS: ALT (SGPT) 13 U/L (8-55); AST (SGOT) 24 U/L (5-34); Alkaline Phosphatase 96 U/L (40-110); Bilirubin, Direct 0.5 mg/dL (0.1-0.3)
[2022-12-31 08:56] LABS: Anion Gap 19 mmol/L (10-20); BUN (Urea Nitrogen) 21 mg/dL (9.8-20.1); Calc. Creatinine Clearance 38 mL/min (70-130); Calcium 9.1 mg/dL (7.8-10.44); Carbon Dioxide 17 mmol/L (23-31); Chloride 105 mmol/L (98-107); Estimated GFR 38; Glucose 130 mg/dL (83-110); Magnesium 1.4 mg/dL (1.6-2.6); Potassium 3.6 mmol/L (3.5-5.1); Sodium 137 mmol/L (136-145)
[2022-12-31] MEDS ORDERED: Spironolactone 25 MG TAB PO SCH (09:30)
[2022-12-31] MEDS ORDERED: Furosemide 20 MG TAB PO SCH (09:30)
[2022-12-31] MEDS: Pantoprazole 40 MG VIAL IVP SCH (10:23)
[2022-12-31 12:17] LABS: RBC Count-Automated (BF) 736 /cu.mm; WBC/Nucleated-Auto (BF) 346 /cu.mm
[2022-12-31 12:50] LABS: BF Color Yellow; Body Fluid Source Ascites Body Fluid; Clarity Hazy (Clear); Tube # EDTA
[2022-12-31 13:11] LABS: BF Segmented Neutrophils 17 %; Cell Count Non Hematic 49 %; Lymphocytes 31 %
[2022-12-31] MEDS: Midodrine HCl 5 MG TAB PO SCH ×2 (14:29→20:49)
[2022-12-31] MEDS: Rifaximin 550 MG TAB PO SCH (20:49)
[2023-01-01 07:21] LABS: #Eosinphils 0.1 thou/uL (0.0-0.7); #Lymphocytes 0.7 thou/uL (1.20-3.40); #Monocytes 0.4 thou/uL (0.11-0.59); %Eosinophils 1.6 % (0.0-10.0); %Lymphocytes 16.3 % (21.0-51.0); %Monocytes 9.6 % (0.0-10.0); %Neutrophils 72.5 % (42.0-75.0); Hemoglobin 12.1 g/dL (12.0-16.0); Mean Corpuscular HGB CONC 34.1 g/dL (32.0-36.0); Mean Corpuscular Hemoglobin 31.3 pg (27.0-31.0); Mean Corpuscular Volume 91.8 fl (78.0-98.0); Mean Platelet Volume 10.3 fL (7.4-10.4); Platelet Count 126 10x3/uL (130-400); RBC Distribution Width 12.9 % (11.5-14.5); Red Blood Cell (RBC) Count 3.85 mill/uL (4.20-5.40); White Blood Cell (WBC) Count 4.2 10x3/uL (4.8-10.8)
[2023-01-01 07:22] LABS: Anion Gap 15 mmol/L (10-20); BUN (Urea Nitrogen) 18 mg/dL (9.8-20.1); Calc. Creatinine Clearance 42 mL/min (70-130); Calcium 9.2 mg/dL (7.8-10.44); Carbon Dioxide 21 mmol/L (23-31); Chloride 106 mmol/L (98-107); Estimated GFR 43; Glucose 122 mg/dL (83-110); Potassium 3.7 mmol/L (3.5-5.1); Sodium 138 mmol/L (136-145)
[2023-01-01] MEDS: Pantoprazole 40 MG VIAL IVP SCH (08:42)
[2023-01-01] MEDS: Midodrine HCl 5 MG TAB PO SCH (08:42)
[2023-01-01] MEDS: Rifaximin 550 MG TAB PO SCH (08:42)
[2023-01-01] MEDS ORDERED: Spironolactone 100 MG TAB PO SCH (09:00)
[2023-01-01] MEDS ORDERED: Furosemide 40 MG TAB PO SCH (09:00)
[2023-01-01] MEDS ORDERED: Pregabalin 75 MG CAP PO SCH ×2 (10:00→21:00)
[2023-01-01] MEDS ORDERED: Non-Formulary Item 1 EACH (Zinc [Zinc] 50 MG Tablet) PO SCH (12:00)
[2023-01-01] MEDS ORDERED: Zinc Sulfate 220 MG CAP PO SCH (12:00)
[2023-01-01 12:24] LABS: Magnesium 1.4 mg/dL (1.6-2.6)
[2023-01-01 12:48] LABS: SARS-CoV-2 NAA Rapid Test Not Detected (NotDetected)
[2023-01-01 13:51] VITALS: BP 124/81; TEMP 97.9
[2023-01-01 20:18] LABS: Campy jejuni + coli by PCR Negative (Negative); STEC Shiga Toxin 1+2 Negative (Negative); Salmonella spp. by PCR Negative (Negative); Shigella spp + EIEC by PCR Negative (Negative)
[2023-01-01] MEDS ORDERED: Non-Formulary Item 1 EACH (Apremilast [Otezla] 30 MG Tablet) PO SCH (21:00)
[2023-01-01] MEDS ORDERED: APREMILAST 30 MG PO SCH (21:00)
[2023-01-02] MEDS ORDERED: Pregabalin 75 MG CAP PO SCH (09:00)
[2023-01-02] MEDS ORDERED: Spironolactone 25 MG TAB PO SCH (09:00)
[2023-01-02] MEDS ORDERED: Multivitamin W/ Minerals 1 TAB PO SCH (09:00)
[2023-01-02] MEDS ORDERED: Non-Formulary Item 1 EACH (Cholecalciferol (Vitamin D3) [Vitamin D3] 5,000 UNITS Capsule) PO SCH (09:00)
[2023-01-02] MEDS ORDERED: Furosemide 20 MG TAB PO SCH (09:00)
[2023-01-02] MEDS ORDERED: Non-Formulary Item 1 EACH (Omeprazole [Omeprazole] 20 MG Capsule.Dr) PO SCH (09:00)
[2023-01-02] MEDS ORDERED: Cholecalciferol 1,000 UNITS (25 MCG) TAB PO SCH (09:00)
[2023-01-02] MEDS ORDERED: Calcium Carbonate 600 MG + Vit D TAB PO SCH (09:00)
== END 2023-01-01 14:03 | disposition home or self-care (01) | DRG 433 ==
LOC: ERS 16:53 → ERHOLD 22:46 → T4-A 12-31 07:51 → OBSVTOIN 01-01 13:14
PROVIDERS: ADMIT Internal Medicine; ATTEND Family Medicine
PROC: 0W9G3ZZ Drainage of Peritoneal Cavity, Percutaneous Approach (ICD-10-PCS; principal; 2022-12-31)
DX: K74.60 Unspecified cirrhosis of liver (principal); I85.10 Secondary esophageal varices without bleeding; R18.8 Other ascites; K52.9 Noninfective gastroenteritis and colitis, unspecified; I12.9 Hypertensive chronic kidney disease with stage 1 through stage 4 chronic kidney disease, or unspecified chronic kidney disease; E78.5 Hyperlipidemia, unspecified; E11.22 Type 2 diabetes mellitus with diabetic chronic kidney disease; L40.50 Arthropathic psoriasis, unspecified; N18.32 Chronic kidney disease, stage 3b; K43.9 Ventral hernia without obstruction or gangrene; K76.82 Hepatic encephalopathy; G43.909 Migraine, unspecified, not intractable, without status migrainosus; E86.0 Dehydration; I86.4 Gastric varices; Z20.822 Contact with and (suspected) exposure to COVID-19; E83.42 Hypomagnesemia; Z79.899 Other long term (current) drug therapy; Z79.84 Long term (current) use of oral hypoglycemic drugs; Z91.040 Latex allergy status; Z91.09 Other allergy status, other than to drugs and biological substances; Z90.710 Acquired absence of both cervix and uterus; Z90.49 Acquired absence of other specified parts of digestive tract; Z98.890 Other specified postprocedural states
CPT/HCPCS: 36415; 36416; 49083; 74177; 80048; 80053; 80076; 83605; 83690; 83735; 84484; 85025; 85060; 87070; 87205; 87324; 87449; 87505; 87633; 89051; 93005; 96374; 96375; 96376; C9113; J0696; J1885; J2405; J3490; P9047; Q9967

== ENCOUNTER 2023-01-05 07:25 | Day surgery (SDC) | payer MEDICARE ==
[2023-01-05] MEDS ORDERED: Sodium Bicarbonate 2.5 MEQ/5 ML VIAL ONE (07:32)
[2023-01-05] MEDS ORDERED: Lidocaine 1% PF 5 ML VIAL ONE (07:32)
[2023-01-05] MEDS ORDERED: Albumin 25% 200 ML ONE (07:32)
[2023-01-05] MEDS ORDERED: Albumin 25% 25 GM/100 ML BOT IVPB SCH (08:00)
[2023-01-05 09:25] VITALS: TEMP 97.5
[2023-01-05 09:35] VITALS: BP 124/56
== END 2023-01-05 09:45 | disposition home or self-care (01) ==
LOC: ULT 07:25
PROVIDERS: ATTEND Internal Medicine Gastroenterology
PROC: 0W9G3ZZ Drainage of Peritoneal Cavity, Percutaneous Approach (ICD-10-PCS; principal; 2023-01-05)
DX: K74.60 Unspecified cirrhosis of liver (principal); R18.8 Other ascites
CPT/HCPCS: 49083; P9047

== ENCOUNTER 2023-01-19 07:24 | Day surgery (SDC) | payer MEDICARE ==
[2023-01-19] MEDS ORDERED: Lidocaine 1% PF 5 ML VIAL ONE (07:56)
[2023-01-19] MEDS ORDERED: Albumin 25% 200 ML ONE (07:56)
[2023-01-19] MEDS ORDERED: Sodium Bicarbonate 2.5 MEQ/5 ML VIAL ONE (07:56)
[2023-01-19 10:01] VITALS: BP 121/63
[2023-01-19] MEDS ORDERED: Albumin 25% 25 GM/100 ML BOT IVPB SCH (10:15)
== END 2023-01-19 09:45 | disposition home or self-care (01) ==
LOC: ULT 07:24
PROVIDERS: ATTEND Internal Medicine Gastroenterology
PROC: 0W9G3ZZ Drainage of Peritoneal Cavity, Percutaneous Approach (ICD-10-PCS; principal; 2023-01-19)
DX: K74.60 Unspecified cirrhosis of liver (principal); R18.8 Other ascites; Z88.6 Allergy status to analgesic agent; Z88.8 Allergy status to other drugs, medicaments and biological substances; Z91.040 Latex allergy status; Z91.048 Other nonmedicinal substance allergy status
CPT/HCPCS: 49083; P9047

== ENCOUNTER → 2023-02-16 | Day surgery (SDC) | payer MEDICARE ==
[~2023-02-16] MED LIST changes: +Albumin 25% 200 ML ONE; -Iopamidol-370 76% 500 ML MDV (1 ML CHARGE) ONE; +Lidocaine 1% PF 5 ML VIAL ONE; +Sodium Bicarbonate 2.5 MEQ/5 ML VIAL ONE
== END ==
LOC: ULT 07:22
PROVIDERS: ATTEND Internal Medicine Gastroenterology
DX: K74.60 Unspecified cirrhosis of liver (principal); R18.8 Other ascites
CPT/HCPCS: 49083; P9047

== ENCOUNTER 2023-03-16 07:20 | Day surgery (SDC) | payer MEDICARE ==
[2023-03-16] MEDS ORDERED: Sodium Bicarbonate 2.5 MEQ/5 ML VIAL ONE (08:24)
[2023-03-16] MEDS ORDERED: Lidocaine 1% PF 5 ML VIAL ONE (08:24)
[2023-03-16] MEDS ORDERED: Albumin 25% 200 ML ONE (08:24)
[2023-03-16] MEDS ORDERED: Albumin 25% 25 GM/100 ML BOT IVPB SCH (08:30)
[2023-03-16 10:03] VITALS: BP 119/56
== END 2023-03-16 09:50 | disposition home or self-care (01) ==
LOC: ULT 07:20
PROVIDERS: ATTEND Internal Medicine Gastroenterology
DX: K70.31 Alcoholic cirrhosis of liver with ascites (principal); Z88.8 Allergy status to other drugs, medicaments and biological substances; Z91.040 Latex allergy status
CPT/HCPCS: 49083; P9047

== ENCOUNTER 2023-03-30 07:26 | Day surgery (SDC) | payer MEDICARE ==
[2023-03-30 07:48] LABS: #Eosinphils 0.1 thou/uL (0.0-0.7); #Monocytes 0.5 thou/uL (0.11-0.59); #Neutrophils 4.5 thou/uL (1.40-6.50); %Basophils 0.5 % (0.0-1.0); %Eosinophils 1.2 % (0.0-10.0); %Lymphocytes 10.2 % (21.0-51.0); %Monocytes 8.7 % (0.0-10.0); %Neutrophils 79.2 % (42.0-75.0); Hemoglobin 11.5 g/dL (12.0-16.0); Mean Corpuscular HGB CONC 32.7 g/dL (32.0-36.0); Mean Corpuscular Hemoglobin 29.1 pg (27.0-31.0); Mean Corpuscular Volume 89.1 fl (78.0-98.0); Mean Platelet Volume 12.7 fL (7.4-10.4); Platelet Count 180 10x3/uL (130-400); RBC Distribution Width 14.9 % (11.5-14.5); Red Blood Cell (RBC) Count 3.95 mill/uL (4.20-5.40); White Blood Cell (WBC) Count 5.7 10x3/uL (4.8-10.8)
[2023-03-30 08:01] LABS: Hemoglobin A1c 7.1 % (4.0-6.0)
[2023-03-30] MEDS ORDERED: Sodium Bicarbonate 2.5 MEQ/5 ML VIAL ONE (08:01)
[2023-03-30] MEDS ORDERED: Albumin 25% 200 ML ONE (08:01)
[2023-03-30] MEDS ORDERED: Lidocaine 1% PF 5 ML VIAL ONE (08:01)
[2023-03-30 08:08] LABS: Anion Gap 15 mmol/L (10-20); BUN (Urea Nitrogen) 24 mg/dL (9.8-20.1); Calc. Creatinine Clearance 0 mL/min (70-130); Calcium 9.9 mg/dL (7.8-10.44); Carbon Dioxide 23 mmol/L (23-31); Chloride 104 mmol/L (98-107); Estimated GFR 36; Glucose 160 mg/dL (83-110); Potassium 4.1 mmol/L (3.5-5.1); Sodium 138 mmol/L (136-145)
[2023-03-30 08:20] LABS: PTT 30.1 sec (22.9-36.1)
[2023-03-30 08:21] LABS: INR-International Normal Ratio 1.1; Prothrombin Time 14.6 sec (12.0-14.7)
[2023-03-30] MEDS ORDERED: Albumin 25% 25 GM/100 ML BOT IVPB SCH (08:45)
[2023-03-30 10:19] VITALS: BP 110/76
== END 2023-03-30 09:50 | disposition home or self-care (01) ==
LOC: ULT 07:26
PROVIDERS: ATTEND Internal Medicine Gastroenterology
PROC: 0W9G30Z Drainage of Peritoneal Cavity with Drainage Device, Percutaneous Approach (ICD-10-PCS; principal; 2023-03-30)
DX: R18.8 Other ascites (principal); K74.60 Unspecified cirrhosis of liver; Z88.6 Allergy status to analgesic agent; Z88.8 Allergy status to other drugs, medicaments and biological substances; Z91.040 Latex allergy status
CPT/HCPCS: 49083; 80048; 83036; 85025; 85610; 85730; P9047

== ENCOUNTER 2023-04-13 07:25 | Day surgery (SDC) | payer MEDICARE | END 2023-04-13 10:00 | disposition home or self-care (01) | LOC: ULT 07:25 | PROVIDERS: ATTEND Internal Medicine Gastroenterology | DX: R18.8 Other ascites (principal); K74.60 Unspecified cirrhosis of liver | CPT/HCPCS: 49083; P9047 ==

== ENCOUNTER → 2023-04-27 | Day surgery (SDC) | payer MEDICARE ==
[~2023-04-27] MED LIST changes: +Albumin 25% 25 GM/100 ML BOT IVPB SCH
[2023-04-27 07:44] LABS: #Basophils 0.1 thou/uL (0.0-0.2); #Eosinphils 0.1 thou/uL (0.0-0.7); #Monocytes 0.6 thou/uL (0.11-0.59); #Neutrophils 4.1 thou/uL (1.40-6.50); %Basophils 1.3 % (0.0-1.0); %Eosinophils 1.4 % (0.0-10.0); %Lymphocytes 14.1 % (21.0-51.0); %Monocytes 9.8 % (0.0-10.0); %Neutrophils 73.2 % (42.0-75.0); Hematocrit 36.5 % (36.0-47.0); Hemoglobin 11.7 g/dL (12.0-16.0); Mean Corpuscular HGB CONC 32.1 g/dL (32.0-36.0); Mean Corpuscular Hemoglobin 28.2 pg (27.0-31.0); Mean Platelet Volume 12.8 fL (7.4-10.4); Platelet Count 169 10x3/uL (130-400); RBC Distribution Width 15.2 % (11.5-14.5); Red Blood Cell (RBC) Count 4.15 mill/uL (4.20-5.40); White Blood Cell (WBC) Count 5.6 10x3/uL (4.8-10.8)
[2023-04-27 08:05] LABS: INR-International Normal Ratio 1.1; Prothrombin Time 14.6 sec (12.0-14.7)
[2023-04-27 08:06] LABS: PTT 36.8 sec (22.9-36.1)
[2023-04-27 08:09] LABS: Anion Gap 14 mmol/L (10-20); BUN (Urea Nitrogen) 24 mg/dL (9.8-20.1); Calc. Creatinine Clearance 0 mL/min (70-130); Calcium 9.5 mg/dL (7.8-10.44); Carbon Dioxide 22 mmol/L (23-31); Chloride 102 mmol/L (98-107); Estimated GFR 37; Glucose 162 mg/dL (83-110); Potassium 3.8 mmol/L (3.5-5.1); Sodium 134 mmol/L (136-145)
[2023-04-27 09:40] VITALS: BP 110/74
[2023-04-29 14:07] LABS: ALT (SGPT) 15 U/L (8-55); AST (SGOT) 31 U/L (5-34); Albumin 3.2 g/dL (3.4-4.8); Alkaline Phosphatase 134 U/L (40-110); Bilirubin, Direct 0.2 mg/dL (0.1-0.3); Bilirubin, Total 0.3 mg/dL (0.2-1.2); Protein, Total 6.5 g/dL (5.8-8.1)
== END ==
LOC: ULT 07:29
PROVIDERS: ATTEND Internal Medicine Gastroenterology
PROC: 0W9G30Z Drainage of Peritoneal Cavity with Drainage Device, Percutaneous Approach (ICD-10-PCS; principal; 2023-04-27)
DX: R18.8 Other ascites (principal); K74.60 Unspecified cirrhosis of liver
CPT/HCPCS: 49083; 80048; 85025; 85610; 85730; P9047; 80076; 82105

== ENCOUNTER 2023-05-11 07:34 | Day surgery (SDC) | payer MEDICARE ==
[~2023-05-11 07:34] MED LIST changes: -Albumin 25% 25 GM/100 ML BOT IVPB SCH
[2023-05-11 08:23] LABS: ALT (SGPT) 20 U/L (8-55); AST (SGOT) 33 U/L (5-34); Albumin 3.4 g/dL (3.4-4.8); Alkaline Phosphatase 136 U/L (40-110); Bilirubin, Direct 0.4 mg/dL (0.1-0.3); Bilirubin, Total 0.9 mg/dL (0.2-1.2)
[2023-05-11 12:21] LABS: Follow-up Chemistry Comp? YES; Follow-up Result - Chemistry REPORT FAXED
== END 2023-05-11 09:50 | disposition home or self-care (01) ==
LOC: ULT 07:34
PROVIDERS: ATTEND Internal Medicine Gastroenterology
PROC: 0W9G3ZZ Drainage of Peritoneal Cavity, Percutaneous Approach (ICD-10-PCS; principal; 2023-05-11)
DX: K74.60 Unspecified cirrhosis of liver (principal); R18.8 Other ascites; Z91.040 Latex allergy status; Z88.6 Allergy status to analgesic agent; Z88.8 Allergy status to other drugs, medicaments and biological substances
CPT/HCPCS: 49083; 80076; 82105; P9047

== ENCOUNTER 2023-05-25 07:38 | Outpatient (CLI) | payer MEDICARE | END 2023-05-25 07:39 | disposition home or self-care (01) | LOC: ULT 07:38 | PROVIDERS: ATTEND Physician Assistant Medical | DX: K72.90 Hepatic failure, unspecified without coma (principal); R60.0 Localized edema; K57.30 Diverticulosis of large intestine without perforation or abscess without bleeding; K76.6 Portal hypertension | CPT/HCPCS: 49083; 76705 ==

== ENCOUNTER 2023-05-25 07:40 | Day surgery (SDC) | payer MEDICARE ==
[2023-05-25] MEDS ORDERED: Sodium Bicarbonate 2.5 MEQ/5 ML VIAL ONE (08:09)
[2023-05-25] MEDS ORDERED: Albumin 25% 200 ML ONE (08:09)
[2023-05-25] MEDS ORDERED: Lidocaine 1% PF 5 ML VIAL ONE (08:09)
[2023-05-25] MEDS ORDERED: Albumin 25% 25 GM/100 ML BOT IVPB SCH (08:30)
[2023-05-25 10:54] VITALS: BP 110/60
== END 2023-05-25 09:40 | disposition home or self-care (01) ==
LOC: ULT 07:40
PROVIDERS: ATTEND Internal Medicine Gastroenterology
DX: K74.60 Unspecified cirrhosis of liver (principal); R18.8 Other ascites
CPT/HCPCS: 49083; 76705; P9047

== ENCOUNTER → 2023-06-08 | Day surgery (SDC) | payer MEDICARE ==
[2023-06-08 07:51] LABS: #Basophils 0.1 thou/uL (0.0-0.2); #Eosinphils 0.1 thou/uL (0.0-0.7); #Monocytes 0.5 thou/uL (0.11-0.59); #Neutrophils 3.9 thou/uL (1.40-6.50); %Eosinophils 1.2 % (0.0-10.0); %Lymphocytes 12.1 % (21.0-51.0); %Neutrophils 75.5 % (42.0-75.0); Hematocrit 35.3 % (36.0-47.0); Hemoglobin 11.4 g/dL (12.0-16.0); Mean Corpuscular HGB CONC 32.3 g/dL (32.0-36.0); Mean Corpuscular Hemoglobin 27.9 pg (27.0-31.0); Mean Corpuscular Volume 86.3 fl (78.0-98.0); Mean Platelet Volume 12.8 fL (7.4-10.4); Platelet Count 182 10x3/uL (130-400); RBC Distribution Width 15.1 % (11.5-14.5); Red Blood Cell (RBC) Count 4.09 mill/uL (4.20-5.40); White Blood Cell (WBC) Count 5.1 10x3/uL (4.8-10.8)
[2023-06-08 08:05] LABS: INR-International Normal Ratio 1.1; PTT 37.1 sec (22.9-36.1); Prothrombin Time 15.1 sec (12.0-14.7)
[2023-06-08 08:12] LABS: Anion Gap 15 mmol/L (10-20); BUN (Urea Nitrogen) 25 mg/dL (9.8-20.1); Calc. Creatinine Clearance 0 mL/min (70-130); Calcium 9.5 mg/dL (7.8-10.44); Carbon Dioxide 22 mmol/L (23-31); Chloride 103 mmol/L (98-107); Estimated GFR 34; Glucose 201 mg/dL (83-110); Potassium 3.9 mmol/L (3.5-5.1); Sodium 136 mmol/L (136-145)
== END ==
LOC: ULT 07:31
PROVIDERS: ATTEND Internal Medicine Gastroenterology
PROC: 0W9G3ZZ Drainage of Peritoneal Cavity, Percutaneous Approach (ICD-10-PCS; principal; 2023-06-08)
DX: K74.60 Unspecified cirrhosis of liver (principal); R18.8 Other ascites; Z91.040 Latex allergy status; Z88.8 Allergy status to other drugs, medicaments and biological substances
CPT/HCPCS: 49083; 80048; 85025; 85610; 85730; P9047

== ENCOUNTER → 2023-06-22 | Day surgery (SDC) | payer MEDICARE ==
[~2023-06-22] MED LIST changes: +FLU VACC QS2023(65UP)/MF59C/PF 60 MCG/0.5 ML SYRINGE IM ONE
== END ==
LOC: ULT 07:27
PROVIDERS: ATTEND Internal Medicine Gastroenterology
PROC: 0W9G3ZZ Drainage of Peritoneal Cavity, Percutaneous Approach (ICD-10-PCS; principal; 2023-06-22)
DX: K74.60 Unspecified cirrhosis of liver (principal); R18.8 Other ascites
CPT/HCPCS: 49083; P9047

== ENCOUNTER → 2023-07-06 | Day surgery (SDC) | payer MEDICARE ==
[~2023-07-06] MED LIST changes: +Albumin 25% 25 GM/100 ML BOT IVPB SCH; -FLU VACC QS2023(65UP)/MF59C/PF 60 MCG/0.5 ML SYRINGE IM ONE
[2023-07-06 10:30] VITALS: BP 121/85
== END ==
LOC: ULT 07:31
PROVIDERS: ATTEND Internal Medicine Gastroenterology
PROC: 0W9G3ZZ Drainage of Peritoneal Cavity, Percutaneous Approach (ICD-10-PCS; principal; 2023-07-06)
DX: K74.60 Unspecified cirrhosis of liver (principal); R18.8 Other ascites; Z91.040 Latex allergy status; Z88.8 Allergy status to other drugs, medicaments and biological substances
CPT/HCPCS: 49083; P9047

== ENCOUNTER 2023-07-20 07:28 | Day surgery (SDC) | payer MEDICARE ==
[2023-07-20 07:50] LABS: #Eosinphils 0.1 thou/uL (0.0-0.7); #Monocytes 0.5 thou/uL (0.11-0.59); #Neutrophils 3.9 thou/uL (1.40-6.50); %Basophils 0.8 % (0.0-1.0); %Eosinophils 1.7 % (0.0-10.0); %Lymphocytes 13.6 % (21.0-51.0); %Monocytes 9.4 % (0.0-10.0); %Neutrophils 74.3 % (42.0-75.0); Hematocrit 35.5 % (36.0-47.0); Hemoglobin 11.4 g/dL (12.0-16.0); Mean Corpuscular HGB CONC 32.1 g/dL (32.0-36.0); Mean Corpuscular Hemoglobin 27.9 pg (27.0-31.0); Mean Corpuscular Volume 86.8 fl (78.0-98.0); Mean Platelet Volume 12.9 fL (7.4-10.4); Platelet Count 173 10x3/uL (130-400); Red Blood Cell (RBC) Count 4.09 mill/uL (4.20-5.40); White Blood Cell (WBC) Count 5.2 10x3/uL (4.8-10.8)
[2023-07-20] MEDS ORDERED: Lidocaine 1% PF 5 ML VIAL ONE (08:00)
[2023-07-20] MEDS ORDERED: Sodium Bicarbonate 2.5 MEQ/5 ML VIAL ONE (08:00)
[2023-07-20] MEDS ORDERED: Albumin 25% 200 ML ONE (08:01)
[2023-07-20 08:12] LABS: INR-International Normal Ratio 1.1; Prothrombin Time 14.8 sec (12.0-14.7)
[2023-07-20 08:13] LABS: PTT 36.7 sec (22.9-36.1)
[2023-07-20 08:15] LABS: Anion Gap 15 mmol/L (10-20); BUN (Urea Nitrogen) 26 mg/dL (9.8-20.1); Calc. Creatinine Clearance 0 mL/min (70-130); Calcium 9.8 mg/dL (7.8-10.44); Carbon Dioxide 24 mmol/L (23-31); Chloride 100 mmol/L (98-107); Estimated GFR 34; Glucose 182 mg/dL (83-110); Potassium 3.8 mmol/L (3.5-5.1); Sodium 135 mmol/L (136-145)
[2023-07-20] MEDS ORDERED: Albumin 25% 25 GM/100 ML BOT IVPB SCH (09:15)
[2023-07-20 16:11] VITALS: BP 119/67
== END 2023-07-20 10:15 | disposition home or self-care (01) ==
LOC: ULT 07:28
PROVIDERS: ATTEND Internal Medicine Gastroenterology
PROC: 0W9G3ZZ Drainage of Peritoneal Cavity, Percutaneous Approach (ICD-10-PCS; principal; 2023-07-20)
DX: K74.60 Unspecified cirrhosis of liver (principal); R18.8 Other ascites; Z91.040 Latex allergy status; Z88.6 Allergy status to analgesic agent; Z88.8 Allergy status to other drugs, medicaments and biological substances
CPT/HCPCS: 49083; 80048; 85025; 85610; 85730; P9047

== ENCOUNTER → 2023-08-03 | Day surgery (SDC) | payer MEDICARE ==
[~2023-08-03] MED LIST changes: -Albumin 25% 25 GM/100 ML BOT IVPB SCH
== END ==
LOC: ULT 07:24
PROVIDERS: ATTEND Internal Medicine Gastroenterology
PROC: 0W9G3ZZ Drainage of Peritoneal Cavity, Percutaneous Approach (ICD-10-PCS; principal; 2023-08-03)
DX: K74.60 Unspecified cirrhosis of liver (principal); R18.8 Other ascites
CPT/HCPCS: 49083; P9047

== ENCOUNTER → 2023-08-17 | Day surgery (SDC) | payer MEDICARE ==
[~2023-08-17] MED LIST changes: +Albumin 25% 25 GM/100 ML BOT IVPB SCH
[2023-08-17 08:00] LABS: #Monocytes 0.4 thou/uL (0.11-0.59); %Basophils 0.8 % (0.0-1.0); %Eosinophils 0.6 % (0.0-10.0); %Monocytes 7.4 % (0.0-10.0); Hematocrit 36.7 % (36.0-47.0); Hemoglobin 11.5 g/dL (12.0-16.0); Mean Corpuscular HGB CONC 31.3 g/dL (32.0-36.0); Mean Corpuscular Hemoglobin 27.6 pg (27.0-31.0); Mean Platelet Volume 12.7 fL (7.4-10.4); Platelet Count 190 10x3/uL (130-400); RBC Distribution Width 15.8 % (11.5-14.5); Red Blood Cell (RBC) Count 4.17 mill/uL (4.20-5.40)
[2023-08-17 08:14] LABS: Anion Gap 13 mmol/L (10-20); BUN (Urea Nitrogen) 24 mg/dL (9.8-20.1); Calc. Creatinine Clearance 0 mL/min (70-130); Calcium 9.3 mg/dL (7.8-10.44); Carbon Dioxide 24 mmol/L (23-31); Chloride 103 mmol/L (98-107); Estimated GFR 38; Glucose 208 mg/dL (83-110); Potassium 3.6 mmol/L (3.5-5.1); Sodium 136 mmol/L (136-145)
[2023-08-17 08:15] LABS: INR-International Normal Ratio 1.1; Prothrombin Time 14.6 sec (12.0-14.7)
[2023-08-17 08:16] LABS: PTT 36.9 sec (22.9-36.1)
== END ==
LOC: ULT 07:37
PROVIDERS: ATTEND Internal Medicine Gastroenterology
PROC: 0W9G3ZZ Drainage of Peritoneal Cavity, Percutaneous Approach (ICD-10-PCS; principal; 2023-08-17)
DX: K74.60 Unspecified cirrhosis of liver (principal); R18.8 Other ascites; Z88.6 Allergy status to analgesic agent; Z91.040 Latex allergy status
CPT/HCPCS: 49083; 80048; 85025; 85610; 85730; P9047

== ENCOUNTER 2023-09-28 08:00 | Day surgery (SDC) | payer MEDICARE ==
[2023-09-28 08:10] LABS: #Eosinphils 0.1 thou/uL (0.0-0.7); #Monocytes 0.5 thou/uL (0.11-0.59); #Neutrophils 4.3 thou/uL (1.40-6.50); %Basophils 0.5 % (0.0-1.0); %Eosinophils 1.3 % (0.0-10.0); %Lymphocytes 10.8 % (21.0-51.0); %Monocytes 8.6 % (0.0-10.0); %Neutrophils 78.4 % (42.0-75.0); Hematocrit 33.7 % (36.0-47.0); Hemoglobin 10.8 g/dL (12.0-16.0); Mean Corpuscular Hemoglobin 27.2 pg (27.0-31.0); Mean Corpuscular Volume 84.9 fl (78.0-98.0); Platelet Count 179 10x3/uL (130-400); RBC Distribution Width 14.6 % (11.5-14.5); Red Blood Cell (RBC) Count 3.97 mill/uL (4.20-5.40); White Blood Cell (WBC) Count 5.5 10x3/uL (4.8-10.8)
[2023-09-28] MEDS ORDERED: Albumin 25% 200 ML ONE (08:23)
[2023-09-28] MEDS ORDERED: Lidocaine 1% PF 5 ML VIAL ONE (08:24)
[2023-09-28 08:30] LABS: INR-International Normal Ratio 1.1; Prothrombin Time 14.5 sec (12.0-14.7)
[2023-09-28 08:31] LABS: PTT 36.7 sec (22.9-36.1)
[2023-09-28 08:35] LABS: Anion Gap 17 mmol/L (10-20); BUN (Urea Nitrogen) 36 mg/dL (9.8-20.1); Calc. Creatinine Clearance 0 mL/min (70-130); Calcium 9.6 mg/dL (7.8-10.44); Carbon Dioxide 22 mmol/L (23-31); Chloride 102 mmol/L (98-107); Estimated GFR 26; Glucose 172 mg/dL (83-110); Potassium 3.7 mmol/L (3.5-5.1); Sodium 137 mmol/L (136-145)
[2023-09-28 09:53] LABS: T4 10.13 ug/dL (4.87-11.72); Thyroid Stimulating Hormone 0.0026 uIU/mL (0.35-4.94)
== END 2023-09-28 10:00 | disposition home or self-care (01) ==
LOC: ULT 08:00
PROVIDERS: ATTEND Internal Medicine Gastroenterology
PROC: 0W9G30Z Drainage of Peritoneal Cavity with Drainage Device, Percutaneous Approach (ICD-10-PCS; principal; 2023-09-28)
DX: R18.8 Other ascites (principal)
CPT/HCPCS: 49083; 80048; 84436; 84443; 84480; 85018; 85025; 85610; 85730; P9047

== ENCOUNTER 2023-10-12 07:22 | Day surgery (SDC) | payer MEDICARE ==
[2023-10-12] MEDS ORDERED: Sodium Bicarbonate 2.5 MEQ/5 ML SDV ONE (07:37)
[2023-10-12] MEDS ORDERED: Lidocaine 1% PF 5 ML VIAL ONE (07:37)
[2023-10-12] MEDS ORDERED: Albumin 25% 200 ML ONE (07:37)
== END 2023-10-12 09:20 | disposition home or self-care (01) ==
LOC: ULT 07:22
PROVIDERS: ATTEND Internal Medicine Gastroenterology
PROC: 0W9G3ZZ Drainage of Peritoneal Cavity, Percutaneous Approach (ICD-10-PCS; principal; 2023-10-12)
DX: K74.60 Unspecified cirrhosis of liver (principal); R18.8 Other ascites; Z88.6 Allergy status to analgesic agent; Z88.8 Allergy status to other drugs, medicaments and biological substances; Z91.040 Latex allergy status
CPT/HCPCS: 49083; P9047

== ENCOUNTER → 2023-11-09 | Day surgery (SDC) | payer MEDICARE ==
[~2023-11-09] MED LIST changes: +Albumin 25% 100 ML ONE; -Albumin 25% 200 ML ONE; -Albumin 25% 25 GM/100 ML BOT IVPB SCH; +Sodium Bicarbonate 2.5 MEQ/5 ML SDV ONE; -Sodium Bicarbonate 2.5 MEQ/5 ML VIAL ONE
[2023-11-09 08:10] LABS: INR-International Normal Ratio 1.1; PTT 37.4 sec (22.9-36.1); Prothrombin Time 13.9 sec (12.0-14.7)
== END ==
LOC: ULT 07:34
PROVIDERS: ATTEND Internal Medicine Gastroenterology
PROC: 0W9G3ZZ Drainage of Peritoneal Cavity, Percutaneous Approach (ICD-10-PCS; principal; 2023-11-09)
DX: R18.8 Other ascites (principal); Z91.040 Latex allergy status; Z88.6 Allergy status to analgesic agent; Z88.8 Allergy status to other drugs, medicaments and biological substances
CPT/HCPCS: 49083; 85610; 85730; P9047

== ENCOUNTER 2024-02-01 07:43 | Day surgery (SDC) | payer MEDICARE ==
[2024-02-01 07:47] LABS: #Basophils 0.04 10x3/uL (0.0-0.2); %Basophils 0.8 % (0.0-1.0); %Eosinophils 2.4 % (0.0-10.0); %Lymphocytes 14.7 % (21.0-51.0); %Monocytes 10.5 % (0.0-10.0); %Neutrophils 71.4 % (42.0-75.0); Hemoglobin 11.8 g/dL (12.0-16.0); Mean Corpuscular HGB CONC 31.9 g/dL (32.0-36.0); Mean Corpuscular Volume 87.7 fL (78.0-98.0); Mean Platelet Volume 12.4 fL (7.4-10.4); Platelet Count 159 10x3/uL (130-400); RBC Distribution Width 20.1 % (11.5-14.5); Red Blood Cell (RBC) Count 4.22 mill/uL (4.20-5.40)
[2024-02-01] MEDS ORDERED: Albumin 25% 200 ML ONE (07:53)
[2024-02-01] MEDS ORDERED: Lidocaine 1% PF 5 ML VIAL ONE (07:53)
[2024-02-01] MEDS ORDERED: Sodium Bicarbonate 2.5 MEQ/5 ML SDV ONE (07:53)
[2024-02-01 08:00] LABS: Prothrombin Time 13.6 sec (12.0-14.7)
[2024-02-01 08:02] LABS: PTT 36.5 sec (22.9-36.1)
[2024-02-01 08:23] LABS: Anion Gap 15 mmol/L (10-20); BUN (Urea Nitrogen) 29 mg/dL (9.8-20.1); Calc. Creatinine Clearance 0 mL/min (70-130); Calcium 9.1 mg/dL (7.8-10.44); Carbon Dioxide 21 mmol/L (23-31); Chloride 107 mmol/L (98-107); Estimated GFR 35; Glucose 143 mg/dL (83-110); Potassium 4.2 mmol/L (3.5-5.1); Sodium 139 mmol/L (136-145)
[2024-02-01 08:43] LABS: Anion Gap 15 mmol/L (10-20); BUN (Urea Nitrogen) 29 mg/dL (9.8-20.1); Calc. Creatinine Clearance 0 mL/min (70-130); Calcium 9.4 mg/dL (7.8-10.44); Carbon Dioxide 21 mmol/L (23-31); Chloride 106 mmol/L (98-107); Estimated GFR 37; Glucose 142 mg/dL (83-110); Potassium 4.1 mmol/L (3.5-5.1); Sodium 138 mmol/L (136-145)
[2024-02-01 09:51] VITALS: BP 119/68; TEMP 97.6
== END 2024-02-01 09:30 | disposition home or self-care (01) ==
LOC: ULT 07:43
PROVIDERS: ATTEND Internal Medicine Gastroenterology
PROC: 0W9G3ZZ Drainage of Peritoneal Cavity, Percutaneous Approach (ICD-10-PCS; principal; 2024-02-01)
DX: K74.60 Unspecified cirrhosis of liver (principal); R18.8 Other ascites
CPT/HCPCS: 49083; 74183; 80048 ×2; 85025; 85610; 85730; P9047

== ENCOUNTER 2024-02-29 07:24 | Day surgery (SDC) | payer MEDICARE ==
[2024-02-29] MEDS ORDERED: Lidocaine 1% PF 5 ML VIAL ONE (07:54)
[2024-02-29] MEDS ORDERED: Albumin 25% 100 ML ONE (07:54)
[2024-02-29] MEDS ORDERED: Sodium Bicarbonate 2.5 MEQ/5 ML SDV ONE (07:54)
== END 2024-02-29 10:10 | disposition home or self-care (01) ==
LOC: ULT 07:24
PROVIDERS: ATTEND Internal Medicine Gastroenterology
PROC: 0W9G3ZZ Drainage of Peritoneal Cavity, Percutaneous Approach (ICD-10-PCS; principal; 2024-02-29)
DX: K74.60 Unspecified cirrhosis of liver (principal); R18.8 Other ascites
CPT/HCPCS: 49083; P9047

== ENCOUNTER → 2024-03-14 | Day surgery (SDC) | payer MEDICARE ==
[~2024-03-14] MED LIST changes: -Albumin 25% 100 ML ONE; +Albumin 25% 200 ML ONE
[2024-03-14 08:44] LABS: #Basophils 0.04 10x3/uL (0.0-0.2); %Basophils 0.8 % (0.0-1.0); %Lymphocytes 12.9 % (21.0-51.0); %Monocytes 9.5 % (0.0-10.0); %Neutrophils 74.4 % (42.0-75.0); Hematocrit 35.5 % (36.0-47.0); Mean Corpuscular HGB CONC 33.8 g/dL (32.0-36.0); Mean Corpuscular Hemoglobin 29.9 pg (27.0-31.0); Mean Corpuscular Volume 88.3 fL (78.0-98.0); Platelet Count 122 10x3/uL (130-400); RBC Distribution Width 18.4 % (11.5-14.5); Red Blood Cell (RBC) Count 4.02 mill/uL (4.20-5.40)
[2024-03-14 08:48] LABS: INR-International Normal Ratio 1.1; Prothrombin Time 14.6 sec (12.0-14.7)
[2024-03-14 08:49] LABS: PTT 36.4 sec (22.9-36.1)
[2024-03-14 08:58] LABS: Anion Gap 16 mmol/L (10-20); BUN (Urea Nitrogen) 28 mg/dL (9.8-20.1); Calc. Creatinine Clearance 0 mL/min (70-130); Calcium 8.7 mg/dL (7.8-10.44); Carbon Dioxide 23 mmol/L (23-31); Chloride 105 mmol/L (98-107); Estimated GFR 39; Glucose 174 mg/dL (83-110); Potassium 3.9 mmol/L (3.5-5.1); Sodium 140 mmol/L (136-145)
== END ==
LOC: ULT 07:26
PROVIDERS: ATTEND Internal Medicine Gastroenterology
PROC: 0W9G3ZZ Drainage of Peritoneal Cavity, Percutaneous Approach (ICD-10-PCS; principal; 2024-03-14)
DX: K74.60 Unspecified cirrhosis of liver (principal); R18.8 Other ascites; Z91.040 Latex allergy status; Z88.6 Allergy status to analgesic agent; Z88.8 Allergy status to other drugs, medicaments and biological substances
CPT/HCPCS: 49083; 80048; 85025; 85610; 85730; P9047

== ENCOUNTER → 2024-03-28 | Day surgery (SDC) | payer MEDICARE | LOC: ULT 07:29 | PROVIDERS: ATTEND Internal Medicine Gastroenterology | PROC: 0W9G30Z Drainage of Peritoneal Cavity with Drainage Device, Percutaneous Approach (ICD-10-PCS; principal; 2024-03-28) | DX: K74.60 Unspecified cirrhosis of liver (principal); R18.8 Other ascites; Z88.8 Allergy status to other drugs, medicaments and biological substances; Z91.040 Latex allergy status | CPT/HCPCS: 49083; P9047 ==

== ENCOUNTER → 2024-04-26 | Day surgery (SDC) | payer MEDICARE | LOC: ULT 10:37 | PROVIDERS: ATTEND Internal Medicine Gastroenterology | PROC: 0W9G30Z Drainage of Peritoneal Cavity with Drainage Device, Percutaneous Approach (ICD-10-PCS; principal; 2024-04-26) | DX: K74.60 Unspecified cirrhosis of liver (principal); R18.8 Other ascites | CPT/HCPCS: 49083; P9047 ==

== ENCOUNTER → 2024-06-20 | Day surgery (SDC) | payer MEDICARE ==
[2024-06-20 10:35] LABS: #Basophils 0.03 10x3/uL (0.0-0.2); %Basophils 0.6 % (0.0-1.0); %Eosinophils 0.6 % (0.0-10.0); %Lymphocytes 11.5 % (21.0-51.0); %Monocytes 7.5 % (0.0-10.0); %Neutrophils 79.6 % (42.0-75.0); Hematocrit 35.9 % (36.0-47.0); Hemoglobin 11.8 g/dL (12.0-16.0); Mean Corpuscular HGB CONC 32.9 g/dL (32.0-36.0); Mean Corpuscular Hemoglobin 30.8 pg (27.0-31.0); Mean Corpuscular Volume 93.7 fL (78.0-98.0); Platelet Count 123 10x3/uL (130-400); RBC Distribution Width 13.8 % (11.5-14.5); Red Blood Cell (RBC) Count 3.83 mill/uL (4.20-5.40)
[2024-06-20 10:48] LABS: INR-International Normal Ratio 1.2; Prothrombin Time 15.3 sec (12.0-14.7)
[2024-06-20 10:49] LABS: PTT 38.4 sec (22.9-36.1)
[2024-06-20 11:07] LABS: ALT (SGPT) 23 U/L (8-55); AST (SGOT) 34 U/L (5-34); Albumin 2.8 g/dL (3.4-4.8); Alkaline Phosphatase 129 U/L (40-110); Anion Gap 13 mmol/L (10-20); BUN (Urea Nitrogen) 30 mg/dL (9.8-20.1); Calc. Creatinine Clearance 0 mL/min (70-130); Calcium 9.7 mg/dL (7.8-10.44); Carbon Dioxide 26 mmol/L (23-31); Chloride 105 mmol/L (98-107); Estimated GFR 43; Globulin 3.8 g/dL (2.4-3.5); Glucose 150 mg/dL (83-110); Potassium 3.4 mmol/L (3.5-5.1); Protein, Total 6.6 g/dL (5.8-8.1); Sodium 141 mmol/L (136-145)
[2024-06-20 11:18] LABS: T4 9.93 ug/dL (4.87-11.72); Thyroid Stimulating Hormone Less than 0.0083 uIU/mL (0.35-4.94)
[2024-06-20 20:54] LABS: Hemoglobin A1c 6.6 % (4.0-6.0)
== END ==
LOC: ULT 07:31
PROVIDERS: ATTEND Internal Medicine Gastroenterology
DX: R18.8 Other ascites (principal); Z91.040 Latex allergy status; Z88.8 Allergy status to other drugs, medicaments and biological substances
CPT/HCPCS: 49083; 83036; 84436; 84480; 85610; 85730; P9047; 80053; 84443; 85025

== ENCOUNTER 2024-07-04 07:29 | Day surgery (SDC) | payer MEDICARE ==
[2024-07-04] MEDS ORDERED: Sodium Bicarbonate 2.5 MEQ/5 ML SDV ONE (07:51)
[2024-07-04] MEDS ORDERED: Albumin 25% 200 ML ONE (07:51)
== END 2024-07-04 09:50 | disposition home or self-care (01) ==
LOC: ULT 07:29
PROVIDERS: ATTEND Internal Medicine Gastroenterology
PROC: 0W9G30Z Drainage of Peritoneal Cavity with Drainage Device, Percutaneous Approach (ICD-10-PCS; principal; 2024-07-04)
DX: R18.8 Other ascites (principal); Z88.8 Allergy status to other drugs, medicaments and biological substances; Z91.040 Latex allergy status
CPT/HCPCS: 49083; P9047

== ENCOUNTER → 2024-07-18 | Day surgery (SDC) | payer MEDICARE ==
[2024-07-18 10:08] LABS: #Basophils 0.03 10x3/uL (0.0-0.2); %Basophils 0.6 % (0.0-1.0); %Eosinophils 0.6 % (0.0-10.0); %Lymphocytes 10.9 % (21.0-51.0); %Monocytes 9.2 % (0.0-10.0); %Neutrophils 78.5 % (42.0-75.0); Hematocrit 36.5 % (36.0-47.0); Hemoglobin 12.2 g/dL (12.0-16.0); Mean Corpuscular HGB CONC 33.4 g/dL (32.0-36.0); Mean Corpuscular Hemoglobin 30.6 pg (27.0-31.0); Mean Corpuscular Volume 91.5 fL (78.0-98.0); Platelet Count 150 10x3/uL (130-400); RBC Distribution Width 13.8 % (11.5-14.5); Red Blood Cell (RBC) Count 3.99 mill/uL (4.20-5.40)
[2024-07-18 10:23] LABS: Anion Gap 14 mmol/L (10-20); BUN (Urea Nitrogen) 25 mg/dL (9.8-20.1); Calc. Creatinine Clearance 0 mL/min (70-130); Calcium 9.8 mg/dL (7.8-10.44); Carbon Dioxide 24 mmol/L (23-31); Chloride 103 mmol/L (98-107); Estimated GFR 43; Glucose 148 mg/dL (83-110); Potassium 3.7 mmol/L (3.5-5.1); Sodium 137 mmol/L (136-145)
[2024-07-18 10:41] LABS: INR-International Normal Ratio 1.1; Prothrombin Time 14.6 sec (12.0-14.7)
== END ==
LOC: ULT 07:30
PROVIDERS: ATTEND Internal Medicine Gastroenterology
PROC: 0W9G30Z Drainage of Peritoneal Cavity with Drainage Device, Percutaneous Approach (ICD-10-PCS; principal; 2024-07-18)
DX: R18.8 Other ascites (principal); Z88.8 Allergy status to other drugs, medicaments and biological substances; Z91.040 Latex allergy status
CPT/HCPCS: 49083; 80048; 85025; 85610; 85730; P9047

== ENCOUNTER 2024-08-01 07:25 | Day surgery (SDC) | payer MEDICARE ==
[2024-08-01] MEDS ORDERED: Lidocaine 1% PF 5 ML VIAL ONE (07:33)
[2024-08-01] MEDS ORDERED: Albumin 25% 200 ML ONE (07:33)
[2024-08-01] MEDS ORDERED: Sodium Bicarbonate 2.5 MEQ/5 ML SDV ONE (07:33)
== END 2024-08-01 09:55 | disposition home or self-care (01) ==
LOC: ULT 07:25
PROVIDERS: ATTEND Internal Medicine Gastroenterology
PROC: 0W9G30Z Drainage of Peritoneal Cavity with Drainage Device, Percutaneous Approach (ICD-10-PCS; principal; 2024-08-01)
DX: R18.8 Other ascites (principal); Z91.040 Latex allergy status; Z88.8 Allergy status to other drugs, medicaments and biological substances; Z91.048 Other nonmedicinal substance allergy status
CPT/HCPCS: 49083; P9047

== ENCOUNTER → 2024-08-15 | Day surgery (SDC) | payer MEDICARE ==
[~2024-08-15] MED LIST changes: -Lidocaine 1% PF 5 ML VIAL ONE
[2024-08-15 09:12] LABS: #Basophils Less than 0.03 10x3/uL (0.0-0.2); %Basophils 0.4 % (0.0-1.0); %Eosinophils 0.9 % (0.0-10.0); %Lymphocytes 10.7 % (21.0-51.0); %Monocytes 8.3 % (0.0-10.0); %Neutrophils 79.5 % (42.0-75.0); Hematocrit 33.2 % (36.0-47.0); Hemoglobin 10.8 g/dL (12.0-16.0); Mean Corpuscular HGB CONC 32.5 g/dL (32.0-36.0); Mean Corpuscular Hemoglobin 30.2 pg (27.0-31.0); Mean Corpuscular Volume 92.7 fL (78.0-98.0); Mean Platelet Volume 12.7 fL (7.4-10.4); Platelet Count 128 10x3/uL (130-400); RBC Distribution Width 14.2 % (11.5-14.5); Red Blood Cell (RBC) Count 3.58 mill/uL (4.20-5.40)
[2024-08-15 09:30] LABS: Anion Gap 12 mmol/L (10-20); BUN (Urea Nitrogen) 24 mg/dL (9.8-20.1); Calc. Creatinine Clearance 0 mL/min (70-130); Calcium 9.5 mg/dL (7.8-10.44); Carbon Dioxide 21 mmol/L (23-31); Chloride 110 mmol/L (98-107); Estimated GFR 59; Glucose 141 mg/dL (83-110); Potassium 3.8 mmol/L (3.5-5.1); Sodium 139 mmol/L (136-145)
[2024-08-15 09:42] LABS: INR-International Normal Ratio 1.2; Prothrombin Time 14.9 sec (12.0-14.7)
[2024-08-15 09:43] LABS: PTT 36.8 sec (22.9-36.1)
== END ==
LOC: ULT 07:31
PROVIDERS: ATTEND Internal Medicine Gastroenterology
PROC: 0W9G3ZZ Drainage of Peritoneal Cavity, Percutaneous Approach (ICD-10-PCS; principal; 2024-08-15)
DX: R18.8 Other ascites (principal); Z91.040 Latex allergy status; Z91.048 Other nonmedicinal substance allergy status; Z88.8 Allergy status to other drugs, medicaments and biological substances
CPT/HCPCS: 49083; 80048; 85025; 85610; 85730; P9047

== ENCOUNTER 2024-09-12 07:30 | Day surgery (SDC) | payer MEDICARE ==
[2024-09-12] MEDS ORDERED: Sodium Bicarbonate 2.5 MEQ/5 ML SDV ONE (07:54)
[2024-09-12] MEDS ORDERED: Albumin 25% 200 ML ONE (07:54)
[2024-09-12] MEDS ORDERED: Lidocaine 1% PF 5 ML VIAL ONE (07:54)
[2024-09-12 08:46] LABS: #Basophils 0.03 10x3/uL (0.0-0.2); %Basophils 0.7 % (0.0-1.0); %Eosinophils 1.2 % (0.0-10.0); %Lymphocytes 12.3 % (21.0-51.0); %Neutrophils 75.6 % (42.0-75.0); Hematocrit 35.3 % (36.0-47.0); Hemoglobin 11.5 g/dL (12.0-16.0); Mean Corpuscular HGB CONC 32.6 g/dL (32.0-36.0); Mean Corpuscular Hemoglobin 29.8 pg (27.0-31.0); Mean Corpuscular Volume 91.5 fL (78.0-98.0); Mean Platelet Volume 12.3 fL (7.4-10.4); Platelet Count 140 10x3/uL (130-400); RBC Distribution Width 14.1 % (11.5-14.5); Red Blood Cell (RBC) Count 3.86 mill/uL (4.20-5.40)
[2024-09-12 08:55] LABS: Anion Gap 15 mmol/L (10-20); BUN (Urea Nitrogen) 24 mg/dL (9.8-20.1); Calc. Creatinine Clearance 0 mL/min (70-130); Calcium 8.8 mg/dL (7.8-10.44); Carbon Dioxide 23 mmol/L (23-31); Chloride 107 mmol/L (98-107); Estimated GFR 51; Glucose 203 mg/dL (83-110); Potassium 3.2 mmol/L (3.5-5.1); Sodium 142 mmol/L (136-145)
[2024-09-12 09:00] LABS: INR-International Normal Ratio 1.1; Prothrombin Time 14.3 sec (12.0-14.7)
[2024-09-12 09:01] LABS: PTT 38.8 sec (22.9-36.1)
== END 2024-09-12 09:40 | disposition home or self-care (01) ==
LOC: ULT 07:30
PROVIDERS: ATTEND Internal Medicine Gastroenterology
PROC: 0W9G3ZZ Drainage of Peritoneal Cavity, Percutaneous Approach (ICD-10-PCS; principal; 2024-09-12)
DX: R18.8 Other ascites (principal); Z88.8 Allergy status to other drugs, medicaments and biological substances; Z91.040 Latex allergy status; Z91.048 Other nonmedicinal substance allergy status
CPT/HCPCS: 49083; 80048; 85025; 85610; 85730; P9047

== ENCOUNTER 2024-09-26 07:39 | Day surgery (SDC) | payer MEDICARE ==
[2024-09-26] MEDS ORDERED: Sodium Bicarbonate 2.5 MEQ/5 ML SDV ONE (07:41)
[2024-09-26] MEDS ORDERED: Lidocaine 1% PF 5 ML VIAL ONE (07:41)
[2024-09-26] MEDS ORDERED: Albumin 25% 200 ML ONE (07:41)
== END 2024-09-26 09:20 | disposition home or self-care (01) ==
LOC: ULT 07:39
PROVIDERS: ATTEND Internal Medicine Gastroenterology
PROC: 0W9G3ZZ Drainage of Peritoneal Cavity, Percutaneous Approach (ICD-10-PCS; principal; 2024-09-26)
DX: K74.60 Unspecified cirrhosis of liver (principal); R18.8 Other ascites; Z88.8 Allergy status to other drugs, medicaments and biological substances; Z91.040 Latex allergy status
CPT/HCPCS: 49083; P9047

== ENCOUNTER 2025-04-24 07:43 | Day surgery (SDC) | payer MEDICARE ==
[2025-04-24] MEDS ORDERED: Lidocaine 1% PF 5 ML VIAL ONE (07:57)
[2025-04-24] MEDS ORDERED: Sodium Bicarbonate 2.5 MEQ/5 ML SDV ONE (07:57)
== END 2025-04-24 09:50 | disposition home or self-care (01) ==
LOC: ULT 07:43
PROVIDERS: ATTEND Internal Medicine Gastroenterology
PROC: 0W9G3ZZ Drainage of Peritoneal Cavity, Percutaneous Approach (ICD-10-PCS; principal; 2025-04-24)
DX: K72.90 Hepatic failure, unspecified without coma (principal); K74.60 Unspecified cirrhosis of liver; R18.8 Other ascites; D64.9 Anemia, unspecified; Z91.040 Latex allergy status; Z88.6 Allergy status to analgesic agent; Z88.8 Allergy status to other drugs, medicaments and biological substances
CPT/HCPCS: 36000; 49083; P9047

== ENCOUNTER → 2025-05-08 | Day surgery (SDC) | payer MEDICARE ==
[~2025-05-08] MED LIST changes: -Albumin 25% 200 ML ONE; +Lidocaine 1% PF 5 ML VIAL ONE
[2025-05-08] MEDS: Albumin 25% 25 GM (100 mL) BOT IVPB SCH (08:35)
[2025-05-08 09:40] VITALS: BP 102/58
[2025-05-08 10:26] LABS: Anion Gap 13 mmol/L (10-20); BUN (Urea Nitrogen) 32 mg/dL (9.8-20.1); Calc. Creatinine Clearance 0 mL/min (70-130); Calcium 8.9 mg/dL (7.8-10.44); Carbon Dioxide 23 mmol/L (23-31); Chloride 106 mmol/L (98-107); Glucose 219 mg/dL (83-110); Potassium 4.0 mmol/L (3.5-5.1); Sodium 138 mmol/L (136-145)
[2025-05-08 10:42] LABS: INR-International Normal Ratio 1.2; Prothrombin Time 15.6 sec (12.0-14.7)
[2025-05-08 10:43] LABS: PTT 41.3 sec (22.9-36.1)
[2025-05-08 10:45] LABS: #Basophils 0.04 10x3/uL (0.0-0.2); #Eosinophils 0.09 10x3/uL (0.0-0.7); #Monocytes 0.46 10x3/uL (0.11-0.59); #Neutrophils 3.67 10x3/uL (1.40-6.50); %Basophils 0.8 % (0.0-1.0); %Eosinophils 1.9 % (0.0-10.0); %Lymphocytes 11.6 % (21.0-51.0); %Monocytes 9.5 % (0.0-10.0); %Neutrophils 76.0 % (42.0-75.0); Hematocrit 36.3 % (36.0-47.0); Hemoglobin 11.4 g/dL (12.0-16.0); Mean Corpuscular Hemoglobin 29.2 pg (27.0-31.0); Mean Corpuscular Volume 92.8 fL (78.0-98.0); Platelet Count 116 10x3/uL (130-400); Red Blood Cell (RBC) Count 3.91 mill/uL (4.20-5.40); White Blood Cell (WBC) Count 4.83 10x3/uL (4.8-10.8)
[2025-05-08 11:50] LABS: Burr Cells SLIGHT = 2-5 cells HPF (0-1); Platelet Adequacy Comment Platelets Decreased; Polychromasia SLIGHT = 2-3 cells HPF (0-2); Schistocytes SLIGHT = 2-5 cells HPF (0-1)
== END ==
LOC: ULT 07:27
PROVIDERS: ATTEND Internal Medicine Gastroenterology
DX: K72.90 Hepatic failure, unspecified without coma (principal); K74.60 Unspecified cirrhosis of liver; R18.8 Other ascites; Z53.8 Procedure and treatment not carried out for other reasons; D64.9 Anemia, unspecified; Z91.040 Latex allergy status; Z88.6 Allergy status to analgesic agent; Z88.8 Allergy status to other drugs, medicaments and biological substances
CPT/HCPCS: 36000; 76705; 80048; 85025; 85610; 85730; P9047

== ENCOUNTER 2025-05-15 07:45 | Day surgery (SDC) | payer MEDICARE ==
[2025-05-15] MEDS ORDERED: Sodium Bicarbonate 2.5 MEQ/5 ML SDV ONE (08:11)
== END 2025-05-15 09:35 | disposition home or self-care (01) ==
LOC: ULT 07:45
PROVIDERS: ATTEND Internal Medicine Gastroenterology
PROC: 0W9G3ZZ Drainage of Peritoneal Cavity, Percutaneous Approach (ICD-10-PCS; principal; 2025-05-15)
DX: K74.60 Unspecified cirrhosis of liver (principal); K72.90 Hepatic failure, unspecified without coma; R18.8 Other ascites; D64.9 Anemia, unspecified; Z91.040 Latex allergy status; Z91.048 Other nonmedicinal substance allergy status
CPT/HCPCS: 36000; 49083; P9047

== ENCOUNTER 2025-05-29 07:37 | Day surgery (SDC) | payer MEDICARE ==
[2025-05-29] MEDS ORDERED: Sodium Bicarbonate 2.5 MEQ/5 ML SDV ONE (07:45)
[2025-05-29] MEDS ORDERED: Lidocaine 1% PF 5 ML VIAL ONE (07:45)
== END 2025-05-29 09:30 | disposition home or self-care (01) ==
LOC: ULT 07:37
PROVIDERS: ATTEND Internal Medicine Gastroenterology
PROC: 0W9G3ZZ Drainage of Peritoneal Cavity, Percutaneous Approach (ICD-10-PCS; principal; 2025-05-29)
DX: K72.90 Hepatic failure, unspecified without coma (principal); K74.60 Unspecified cirrhosis of liver; R18.8 Other ascites; D64.9 Anemia, unspecified; Z91.040 Latex allergy status; Z88.8 Allergy status to other drugs, medicaments and biological substances
CPT/HCPCS: 49083; P9047

== ENCOUNTER 2025-06-12 07:32 | Day surgery (SDC) | payer MEDICARE ==
[2025-06-12] MEDS ORDERED: Lidocaine 1% PF 5 ML VIAL ONE ×2 (08:00→09:10)
[2025-06-12] MEDS ORDERED: Sodium Bicarbonate 2.5 MEQ/5 ML SDV ONE (08:00)
[2025-06-12 09:40] LABS: Anion Gap 16 mmol/L (10-20); BUN (Urea Nitrogen) 31 mg/dL (9.8-20.1); Calc. Creatinine Clearance 0 mL/min (70-130); Calcium 9.8 mg/dL (7.8-10.44); Carbon Dioxide 22 mmol/L (23-31); Chloride 106 mmol/L (98-107); Glucose 188 mg/dL (83-110); Potassium 4.0 mmol/L (3.5-5.1); Sodium 140 mmol/L (136-145)
== END 2025-06-12 10:10 | disposition home or self-care (01) ==
LOC: ULT 07:32
PROVIDERS: ATTEND Internal Medicine Gastroenterology
PROC: 0W9G3ZZ Drainage of Peritoneal Cavity, Percutaneous Approach (ICD-10-PCS; principal; 2025-06-12)
DX: K72.90 Hepatic failure, unspecified without coma (principal); K74.60 Unspecified cirrhosis of liver; R18.8 Other ascites; D64.9 Anemia, unspecified; Z91.040 Latex allergy status; Z88.6 Allergy status to analgesic agent; Z88.8 Allergy status to other drugs, medicaments and biological substances
CPT/HCPCS: 36000; 49083; 80048; P9047

== ENCOUNTER 2025-06-26 07:25 | Day surgery (SDC) | payer MEDICARE ==
[2025-06-26 11:44] LABS: #Basophils Less than 0.03 10x3/uL (0.0-0.2); #Eosinophils 0.07 10x3/uL (0.0-0.7); #Monocytes 0.37 10x3/uL (0.11-0.59); #Neutrophils 3.37 10x3/uL (1.40-6.50); %Basophils 0.5 % (0.0-1.0); %Eosinophils 1.6 % (0.0-10.0); %Lymphocytes 12.9 % (21.0-51.0); %Monocytes 8.4 % (0.0-10.0); %Neutrophils 76.4 % (42.0-75.0); Hematocrit 32.7 % (36.0-47.0); Hemoglobin 10.4 g/dL (12.0-16.0); Mean Corpuscular Hemoglobin 29.5 pg (27.0-31.0); Mean Corpuscular Volume 92.6 fL (78.0-98.0); Platelet Count 103 10x3/uL (130-400); Red Blood Cell (RBC) Count 3.53 mill/uL (4.20-5.40); White Blood Cell (WBC) Count 4.41 10x3/uL (4.8-10.8)
[2025-06-26 12:00] LABS: INR-International Normal Ratio 1.2; PTT 40.8 sec (22.9-36.1); Prothrombin Time 15.2 sec (12.0-14.7)
[2025-06-26 12:11] LABS: Platelet Adequacy Comment Platelets Decreased; Polychromasia SLIGHT = 2-3 cells HPF (0-2)
== END 2025-06-26 09:45 | disposition home or self-care (01) ==
LOC: ULT 07:25
PROVIDERS: ATTEND Internal Medicine Gastroenterology
DX: K74.60 Unspecified cirrhosis of liver (principal); R18.8 Other ascites
CPT/HCPCS: 36000; 49083; 85025; 85610; 85730; P9047

== ENCOUNTER 2025-07-24 07:37 | Day surgery (SDC) | payer MEDICARE ==
[2025-07-24] MEDS ORDERED: Lidocaine 1% PF 5 ML VIAL ONE (08:04)
[2025-07-24] MEDS ORDERED: Sodium Bicarbonate 2.5 MEQ/5 ML SDV ONE (08:05)
[2025-07-24 08:54] LABS: #Basophils 0.03 10x3/uL (0.0-0.2); #Eosinophils 0.06 10x3/uL (0.0-0.7); #Monocytes 0.42 10x3/uL (0.11-0.59); #Neutrophils 3.40 10x3/uL (1.40-6.50); %Basophils 0.7 % (0.0-1.0); %Eosinophils 1.4 % (0.0-10.0); %Lymphocytes 10.9 % (21.0-51.0); %Monocytes 9.5 % (0.0-10.0); %Neutrophils 77.3 % (42.0-75.0); Hematocrit 35.3 % (36.0-47.0); Hemoglobin 11.4 g/dL (12.0-16.0); Mean Corpuscular Hemoglobin 29.5 pg (27.0-31.0); Mean Corpuscular Volume 91.5 fL (78.0-98.0); Platelet Count 112 10x3/uL (130-400); Red Blood Cell (RBC) Count 3.86 mill/uL (4.20-5.40); White Blood Cell (WBC) Count 4.40 10x3/uL (4.8-10.8)
[2025-07-24 09:14] LABS: INR-International Normal Ratio 1.1; Prothrombin Time 14.7 sec (12.0-14.7)
[2025-07-24 09:15] LABS: PTT 40.3 sec (22.9-36.1)
[2025-07-24 09:16] LABS: Anion Gap 18 mmol/L (10-20); BUN (Urea Nitrogen) 30 mg/dL (9.8-20.1); Calc. Creatinine Clearance 0 mL/min (70-130); Calcium 9.4 mg/dL (7.8-10.44); Carbon Dioxide 22 mmol/L (23-31); Chloride 105 mmol/L (98-107); Glucose 218 mg/dL (83-110); Potassium 4.0 mmol/L (3.5-5.1); Sodium 141 mmol/L (136-145)
== END 2025-07-24 10:10 | disposition home or self-care (01) ==
LOC: ULT 07:37
PROVIDERS: ATTEND Internal Medicine Gastroenterology
DX: K72.90 Hepatic failure, unspecified without coma (principal); K74.60 Unspecified cirrhosis of liver; R18.8 Other ascites; D64.9 Anemia, unspecified; Z91.040 Latex allergy status; Z88.6 Allergy status to analgesic agent; Z88.8 Allergy status to other drugs, medicaments and biological substances
CPT/HCPCS: 49083; 80048; 85025; 85610; 85730; P9047

== ENCOUNTER 2025-08-07 07:28 | Day surgery (SDC) | payer MEDICARE ==
[2025-08-07] MEDS ORDERED: Lidocaine 1% PF 5 ML VIAL ONE (07:58)
[2025-08-07] MEDS ORDERED: Sodium Bicarbonate 2.5 MEQ/5 ML SDV ONE (07:58)
== END 2025-08-07 09:40 | disposition home or self-care (01) ==
LOC: ULT 07:28
PROVIDERS: ATTEND Internal Medicine Gastroenterology
PROC: 0W9G3ZZ Drainage of Peritoneal Cavity, Percutaneous Approach (ICD-10-PCS; principal; 2025-08-07)
DX: K72.90 Hepatic failure, unspecified without coma (principal); K74.60 Unspecified cirrhosis of liver; R18.8 Other ascites; D64.9 Anemia, unspecified; Z91.040 Latex allergy status; Z88.6 Allergy status to analgesic agent; Z88.8 Allergy status to other drugs, medicaments and biological substances
CPT/HCPCS: 49083; P9047

== ENCOUNTER 2025-09-04 07:25 | Day surgery (SDC) | payer MEDICARE ==
[2025-09-04] MEDS ORDERED: Sodium Bicarbonate 2.5 MEQ/5 ML SDV ONE (07:36)
[2025-09-04] MEDS ORDERED: Lidocaine 1% PF 5 ML VIAL ONE (07:36)
== END 2025-09-04 09:30 | disposition home or self-care (01) ==
LOC: ULT 07:25
PROVIDERS: ATTEND Internal Medicine Gastroenterology
PROC: 0W9G3ZZ Drainage of Peritoneal Cavity, Percutaneous Approach (ICD-10-PCS; principal; 2025-09-04)
DX: K72.90 Hepatic failure, unspecified without coma (principal); K74.60 Unspecified cirrhosis of liver; R18.8 Other ascites; D64.9 Anemia, unspecified; Z91.040 Latex allergy status; Z88.6 Allergy status to analgesic agent; Z88.8 Allergy status to other drugs, medicaments and biological substances
CPT/HCPCS: 36000; 49083; P9047